=== PATIENT | female | born 1965 | race Caucasian/White ===

== ENCOUNTER → 2016-12-05 | Outpatient (CLI) | payer OTHER ==
[~2016-12-05] MED LIST: /ATOR40TA PO; AMBI5TAB PO; AMIT8CAP4 PO; ATIV1TAB10 PO; BACL10TA2 PO; BENT10CA PO; DICL100T PO; FLUO20CA8 PO; GABA-283 PO; GABA300C2 PO; GABA300C3 PO; GABA600T PO; LACT20EL PO; LINZ145C PO; LIPI20TA PO; LISI5TAB PO; METH75TA PO; MORP15TA2 PO; NEXI40CA PO; OMEP20CA3 PO; OMEP40CA2 PO; OXYC-517 PO; OXYC15TA76 PO; PERC5TAB PO; PHEN25IN3 PO; REGL10TA6 PO; REST15CA PO; TIZA4CAP3 PO; TRAM37.5 PO; TRAZ50TA2 PO; VALI5TAB PO; VICO5TAB16 PO
--- NOTE | 2016-12-13 00:02 | ECWPNPC ---
PATIENT NAME: JOI MCCLAIN : 1965 GENDER: FEMALE VISIT DATE: 12/05/2016 DISCHARGE DATE: 12/05/16 1626 VISIT LOCKED DATE TIME: PHYSICIAN: VALENTINA MERINO RESOURCE: VALENTINA MERINO REASON FOR APPOINTMENT 1. BACK HISTORY OF PRESENT ILLNESS HISTORY OF PRESENT ILLNESS: PAIN THE PATIENT DESCRIBES THE PAIN... FALL RISK SCREENING: SCREENING :NO FALLS IN THE PAST YEAR TODAY'S VISIT: NOTES: CONTINUES TO HAVE SIGNIFICANT LOW BACK PAIN WITH PAIN RADIATION TO BOTH LEGS, R>L. HAS NUMBNESS AND TINGLING IN LEGS AND FEET. DENIES LOSS OF BOWEL OR BLADDER CONTROL . HAS SIGNIFICANT DIFFICULTY WITH STANDING AND WALKING. RATES PAIN TODAY A 7/10. DESCRIBES PAIN CONSTANT ACHING BURNING SHARP STABBING SHOOTING TENDER THROBBING AND SORE.. CURRENT MEDICATIONS TAKING BACLOFEN 20 MG TABLET 1 TABLET ORALLY 1/2 TAB AM AND PM AND WHOLE TAB AT BEDTIME, NOTES: 09/16 8PM TAKING PROMETHAZINE HCL 50 MG TABLET DIRECTED ORALLY EVERY 6 HOURS PRN, NOTES: 09/15 12NOON TAKING LINZESS 145MCG CAPSULE 1 CAPSULE ORALLY ONCE A DAY NEEDED, NOTES: MONTHS AGO TAKING GABAPENTIN 300 MG CAPSULE 1 ORALLY QID, NOTES: 09/16 8PM TAKING IMITREX 50 MG TABLET 1 TABLET NEEDED ONE TIME, MAY REPEAT IN 2 HOURS IF HEADACHE STILL PRESENT, MDD 2 ORALLY DIRECTED, NOTES: MONTH AGO TAKING BUSPIRONE HCL 7.5 MG TABLET 1 TABLET ORALLY TWICE A DAY TAKING ZOFRAN 4 MG TABLET 2 TABLETS ORALLY BID PRN, NOTES: 2 WEEKS AGO TAKING LIPITOR 40 MG TABLET 1 TABLET ORALLY ONCE A DAY TAKING OMEPRAZOLE 40MG 40 MG CAPSULE 1 CAP(S) ORAL ONCE DAILY TAKING HYDROCHLOROTHIAZIDE 12.5 MG TABLET 1 TABLET ORALLY ONCE A DAY TAKING CYMBALTA 60 MG CAPSULE DELAYED RELEASE PARTICLES 1 CAPSULE ORALLY ONCE A DAY TAKING ATIVAN 0.5 MG TABLET 1 TAB ORALLY HS PRN...MAY REPEAT X 2 ( MDD=2) TAKING MORPHINE SULFATE 15 MG TABLET 1 TABLET ORALLY EVERY 6 HRS PRN PAIN MDD=4 NOT-TAKING WELLBUTRIN SR 150 MG TABLET EXTENDED RELEASE 12 HOUR 1 TABLET ORALLY TWICE A DAY DISCONTINUED VALIUM 5 MG TABLET 2 TABLET ORALLY ON ARRIVAL TO CLINIC MDD=2, NOTES: 09/17 9:30AM DISCONTINUED IBUPROFEN 600 MG TABLET 1 TABLET ORALLY THREE TIMES A DAY DISCONTINUED CLINDAMYCIN HCL 300 MG CAPSULE 1 CAPSULE ORALLY EVERY 8 HRS MEDICATION LIST REVIEWED AND RECONCILED WITH THE PATIENT PAST MEDICAL HISTORY DEPRESSION HYPERTENSION HYPERLIPIDEMIA INSOMNIA IBS REFLUX CHRONIC BACK PAIN ALLERGIES PENICILLIN (FOR ALLERGIES USE ONLY): HIVES: ALLERGY ANCEF: HIVES: ALLERGY SOCIAL HISTORY GENERAL: TOBACCO USE ARE YOU A:NONSMOKER LEARNING BARRIERS / SPECIAL NEEDS ORIENTED TO PLAN OF CARE: PATIENT, PAIN MANAGEMENT PATIENT, ORIENTED TO PLAN OF CARE: PATIENT, PAIN MANAGEMENT PATIENT. NEW PATIENT PAIN DIARY TODAY'S VISITNOTES FROM 0-10, WHAT LEVEL IS YOUR PAIN TODAY?0 PAIN CLINIC PFS, CLERGY, PUBLIC HEALTH REFERRALS PFS REFERRAL NEEDED?NO CLERGY REFERRAL NEEDED?NO PUBLIC HEALTH REFERRAL NEEDED?NO WAS THE PROVIDER NOTIFIED OF ANY PERTINENT INFO?NO PFS REFERRAL NEEDED?NO CLERGY REFERRAL NEEDED?NO PUBLIC HEALTH REFERRAL NEEDED?NO WAS THE PROVIDER NOTIFIED OF ANY PERTINENT INFO?NO REVIEW OF SYSTEMS CONSTITUTIONAL: ANY CHANGE IN YOUR MEDICAL CONDITION? NO . CHILLS NO . FEVER NO . INFECTION: DO YOU HAVE NEW INFECTIONS? NO . DO YOU HAVE HISTORY OF MRSA? NO . MUSCULOSKELETAL: ANY NEW PATTERNS OF PAIN OR NUMBNESS? NO . GASTROENTEROLOGY: ANY NEW CHANGE IN BOWEL CONTROL? NO . GENITOURINARY: ANY NEW CHANGE IN BLADDER CONTROL? NO . IS THERE A CHANCE YOU COULD BE ? NO . HEMATOLOGY/LYMPH: DO YOU TAKE ANY BLOOD THINNERS? (FOR EXAMPLE- COUMADIN, PLAVIX, AGGRENOX, PLATEL, PRADAXA, OR XARELTO) NO . WHEN WAS YOUR LAST DOSE? DATE: TIME: . NEUROLOGY: HAVE YOU FALLEN IN THE PAST 6 MONTHS? NO . ANY NEW EXTREMITY NUMBNESS OR WEAKNESS? NO . CARDIOLOGY: DO YOU HAVE A PACEMAKER OR DEFIBRILLATOR? NO . RESPIRATORY: HAVE YOU BEEN SICK IN THE PAST WEEK? NO . FEVER NO . FLU LIKE SYMPTOMS? NO . COUGH NO . INTEGUMENTARY: DO YOU HAVE ANY RASHES OR OPEN SORES? NO . ALLERGIC/IMMUNO: ARE YOU ALLERGIC TO SHELLFISH OR IV DYE? NO . ANY NEW ALLERGIES? NO . PSYCHIATRIC: DO YOU HAVE THOUGHTS OF HURTING YOURSELF OR SOMEONE ELSE? NO . ARE YOU ABUSED, NEGLECTED, OR IN AN UNSAFE ENVIRONMENT? NO . ENDOCRINOLOGY: ARE YOU DIABETIC? NO . OTHER: DO YOU NEED ANY PRESCRIPTIONS? YES BACLOFEN . IF YES, PLEASE LIST: ____ . ANY NEW PROBLEMS WITH YOUR MEDICATIONS? NO . WHEN DID YOU LAST EAT? ____ . WHEN DID YOU LAST DRINK? ____ . WHAT DID YOU LAST DRINK? ____ . NAME OF PERSON DRIVING YOU HOME? ____ . DO YOU HAVE ANY OTHER QUESTIONS OR CONCERNS NO . REVIEWED BY: PROVIDER: VALENTINA JEREZ . VITAL SIGNS WT 170 LBS, HT 63 IN, BMI 30.11 INDEX, BP 145/80 MM HG, HR 102 /MIN, RR 16 /MIN, TEMP 97.2 F, OXYGEN SAT % 96%, REVIEWED BY: MLF. EXAMINATION GENERAL EXAMINATION: GENERAL APPEARANCE:COLOR PALE. PSYCHALERT , ORIENTED X 3 , APPROPRIATE MOOD AND AFFECT . LUNGS:BILATERAL WHEEZES, NO RALES. HEART:HEART RATE REGULAR. MUSCULOSKELETAL:POINT TENDERNESS OVER LUMBAR SPINOUS PROCESSES AND ACROSS THE LUMBOSACRAL AXIS. SPACIFIC TENDERNESS ELICITED WITH PALPATION OVER THE BILATERAL SACROILIAC JOINTS. SLOW TO RISE TO STANDING POSITION. GAIT ANTALGIC. DECREASED MUSCLE STRENGTH WITH QUADRICEPS FLEXION.. ASSESSMENTS LUMBAR POST-LAMINECTOMY SYNDROME - M96.1 (PRIMARY) LUMBAR RADICULAR PAIN - M54.16 CHRONIC PRESCRIPTION OPIATE USE - Z79.891 TREATMENT LUMBAR POST-LAMINECTOMY SYNDROME REFILL BACLOFEN TABLET, 20 MG, 1 TABLET, ORALLY, 1/2 TAB AM AND PM AND WHOLE TAB AT BEDTIME, 30 DAY(S), 60, REFILLS 5 CAUDAL/LUMBAR EPIDURAL NOTES: UTOX TODAY CONSIDER EVENING PRIMROSE OIL OR BLACK COHOSH FOR HOT FLASHES,LUMBAR EPIDURAL INJECTION: YOUR PROCEDURE MATERIAL WAS PRINTED,WHAT IS LUMBAR EPIDURAL INJECTION? MATERIAL WAS PRINTED. CLINICAL NOTES: ISTOP REGISTRY REVIEWED AND DEMNOSTRATES COMPLLIANCE. BRINGS IN MEDICATIONS WHICH IS APPROPRIATE FOR WHAT WAS DISPENSED. RECENT URINE TOXICOLOGY REVIEWED. NO UNAUTHORIZED MEDICATIONS. NO ILLICIT SUBSTANCES AND PRESCRIBED MEDICATIONS WERE PRESENT. PROCEDURE CODES FA211 ESTABILISHED PATIENT [facility] F[facility] CHARGE DISPOSITION & COMMUNICATION FOLLOW UP AFTER INJECTION (REASON: CHECK AUTH FOR LESB) ELECTRONICALLY SIGNED BY MICHELLE GONZALEZ ON 12/12/2016 AT 11:03 AM EST DISCLAIMER : THIS IS A VISIT SUMMARY EXTRACTED FROM THE [employer] CHART. IT IS NOT A COPY OF THE [employer] PROGRESS NOTE. LAURA
== END ==
LOC: M PAIN 15:00
PROVIDERS: ATTEND Nurse Practitioner Family
DX: Z09 Encounter for follow-up examination after completed treatment for conditions other than malignant neoplasm (principal); G89.29 Other chronic pain; M96.1 Postlaminectomy syndrome, not elsewhere classified; M54.16 Radiculopathy, lumbar region; M79.1 Myalgia; M46.1 Sacroiliitis, not elsewhere classified; I10 Essential (primary) hypertension; E78.5 Hyperlipidemia, unspecified; K21.0 Gastro-esophageal reflux disease with esophagitis; K58.9 Irritable bowel syndrome, unspecified; F32.9 Major depressive disorder, single episode, unspecified; F41.9 Anxiety disorder, unspecified; G47.30 Sleep apnea, unspecified; F17.200 Nicotine dependence, unspecified, uncomplicated; Z88.0 Allergy status to penicillin; Z88.1 Allergy status to other antibiotic agents; Z79.891 Long term (current) use of opiate analgesic; Z79.899 Other long term (current) drug therapy

== ENCOUNTER → 2016-12-12 | Outpatient (REF) | payer OTHER ==
[2016-12-12 17:49] LABS: ALBUMIN 3.6 GM/DL (3.2-5.2); ALBUMIN/GLOBULIN RATIO 0.97 (1.00-1.93); ALKALINE PHOSPHATASE 85 U/L (45-117); ALT/SGPT 13 U/L (12-78); ANION GAP 9 MEQ/L (8-16); AST/SGOT 14 U/L (15-37); BILIRUBIN,TOTAL 0.3 MG/DL (0.2-1.0); BLOOD UREA NITROGEN 8 MG/DL (7-18); CALCIUM LEVEL 9.1 MG/DL (8.5-10.1); CARBON DIOXIDE LEVEL 30 MEQ/L (21-32); CHLORIDE LEVEL 101 MEQ/L (98-107); CHOLESTEROL LEVEL 252 MG/DL (<200); GLOMERULAR FILTRATION RATE > 60.0 (>51); GLUCOSE, FASTING 100 MG/DL (70-105); POTASSIUM SERUM 3.5 MEQ/L (3.5-5.1); SODIUM LEVEL 140 MEQ/L (136-145); TOTAL PROTEIN 7.3 GM/DL (6.4-8.2); TRIGLYCERIDES LEVEL 251 MG/DL (<150)
== END ==
LOC: M SFHCCAPE 09:52
PROVIDERS: ATTEND Physician Assistant
DX: E78.5 Hyperlipidemia, unspecified (principal)

== ENCOUNTER → 2017-01-16 | Outpatient (CLI) | payer OTHER ==
[~2017-01-16] MED LIST changes: +GABA-282 PO; -GABA300C3 PO; +ISOVUE-M 300 61% 15ML VIAL (Q9967) As Ordered ONE; +LIDOCAINE 1% SDV INJ 30 ML VIAL As Ordered ONE; +diazePAM 5 MG TAB As Ordered ONE; +methylPREDNISolone SUSP 40 MG/ML (DEPO-medrol) VIAL (J1030) As Ordered ONE
--- NOTE | 2017-01-16 14:51 | REP ---
FLUOROSCOPIC GUIDANCE FOR LUMBAR EPIDURAL INJECTION: 01/16/2017 CLINICAL HISTORY: Low back pain. FINDINGS: Two images from C-arm fluoroscopy provided to Dr. Mcgee of the pain clinic for lumbar epidural steroid injection. Initial image shows a needle to the right of midline at the L5-S1 level with some epidural contrast adjacent. Second image shows the needle removed. Fluoroscopy time: 9 seconds. Signed by Beau Carranza MD 01/16/2017 05:52 P
--- NOTE | 2017-01-26 23:50 | ECWPNPC ---
PATIENT NAME: JOI MCCLAIN : 1965 GENDER: FEMALE VISIT DATE: 01/16/2017 DISCHARGE DATE: 01/16/17 1034 VISIT LOCKED DATE TIME: PHYSICIAN: STELLA ASHRAF RESOURCE: STELLA ASHRAF REASON FOR APPOINTMENT 1. LESB HISTORY OF PRESENT ILLNESS HISTORY OF PRESENT ILLNESS: PAIN THE PATIENT DESCRIBES THE PAIN... FALL RISK SCREENING: SCREENING :NO FALLS IN THE PAST YEAR CURRENT MEDICATIONS TAKING PROMETHAZINE HCL 50 MG TABLET DIRECTED ORALLY EVERY 6 HOURS PRN, NOTES: 2 WEEKS AGO TAKING LINZESS 145MCG CAPSULE 1 CAPSULE ORALLY ONCE A DAY NEEDED, NOTES: LAST WEEK TAKING GABAPENTIN 300 MG CAPSULE 1 ORALLY QID, NOTES: 01/15 9PM TAKING IMITREX 50 MG TABLET 1 TABLET NEEDED ONE TIME, MAY REPEAT IN 2 HOURS IF HEADACHE STILL PRESENT, MDD 2 ORALLY DIRECTED, NOTES: 2 MONTHS AGO TAKING OMEPRAZOLE 40MG 40 MG CAPSULE 1 CAP(S) ORAL ONCE DAILY, NOTES: 01/15 9PM TAKING BACLOFEN 20 MG TABLET 1 TABLET ORALLY 1/2 TAB AM AND PM AND WHOLE TAB AT BEDTIME, NOTES: 01/15 9PM TAKING CYMBALTA 60 MG CAPSULE DELAYED RELEASE PARTICLES 1 CAPSULE ORALLY ONCE A DAY, NOTES: 01/15 9PM TAKING ATORVASTATIN CALCIUM 10 MG TABLET 1 TABLET ORALLY ONCE A DAY, NOTES: 01/15 9PM TAKING MORPHINE SULFATE 15 MG TABLET 1 TABLET ORALLY EVERY 6 HRS PRN PAIN MDD=4, NOTES: 01/16 0945 TAKING ZOFRAN 4 MG TABLET 2 TABLETS ORALLY BID PRN, NOTES: 2 WEEKS AGO TAKING BUSPIRONE HCL 7.5 MG TABLET 1 TABLET ORALLY THREE TIMES A DAY, NOTES: 1 WEEK AGO TAKING HYDROCHLOROTHIAZIDE 12.5 MG TABLET 1 TABLET ORALLY ONCE A DAY, NOTES: 1 WEEK TAKING ATIVAN 0.5 MG TABLET 1 TAB ORALLY HS PRN, MAY REPEAT X 1 ( MDD=2), NOTES: 1 WEEK NOT-TAKING LIPITOR 40 MG TABLET 1 TABLET ORALLY ONCE A DAY NOT-TAKING WELLBUTRIN SR 150 MG TABLET EXTENDED RELEASE 12 HOUR 1 TABLET ORALLY TWICE A DAY MEDICATION LIST REVIEWED AND RECONCILED WITH THE PATIENT PAST MEDICAL HISTORY DEPRESSION HYPERTENSION HYPERLIPIDEMIA INSOMNIA IBS REFLUX CHRONIC BACK PAIN ALLERGIES PENICILLIN (FOR ALLERGIES USE ONLY): HIVES: ALLERGY ANCEF: HIVES: ALLERGY REVIEW OF SYSTEMS CONSTITUTIONAL: ANY CHANGE IN YOUR MEDICAL CONDITION? NO . CHILLS NO . FEVER NO . INFECTION: DO YOU HAVE NEW INFECTIONS? NO . DO YOU HAVE HISTORY OF MRSA? NO . MUSCULOSKELETAL: ANY NEW PATTERNS OF PAIN OR NUMBNESS? NO . GASTROENTEROLOGY: ANY NEW CHANGE IN BOWEL CONTROL? NO . GENITOURINARY: ANY NEW CHANGE IN BLADDER CONTROL? NO . IS THERE A CHANCE YOU COULD BE ? NO . HEMATOLOGY/LYMPH: DO YOU TAKE ANY BLOOD THINNERS? (FOR EXAMPLE- COUMADIN, PLAVIX, AGGRENOX, PLATEL, PRADAXA, OR XARELTO) NO . WHEN WAS YOUR LAST DOSE? DATE: TIME: . NEUROLOGY: HAVE YOU FALLEN IN THE PAST 6 MONTHS? NO . ANY NEW EXTREMITY NUMBNESS OR WEAKNESS? NO . CARDIOLOGY: DO YOU HAVE A PACEMAKER OR DEFIBRILLATOR? NO . RESPIRATORY: HAVE YOU BEEN SICK IN THE PAST WEEK? NO . FEVER NO . FLU LIKE SYMPTOMS? NO . COUGH NO . INTEGUMENTARY: DO YOU HAVE ANY RASHES OR OPEN SORES? NO . ALLERGIC/IMMUNO: ARE YOU ALLERGIC TO SHELLFISH OR IV DYE? NO . ANY NEW ALLERGIES? NO . PSYCHIATRIC: DO YOU HAVE THOUGHTS OF HURTING YOURSELF OR SOMEONE ELSE? NO . ARE YOU ABUSED, NEGLECTED, OR IN AN UNSAFE ENVIRONMENT? NO . ENDOCRINOLOGY: ARE YOU DIABETIC? NO . OTHER: DO YOU NEED ANY PRESCRIPTIONS? NO . IF YES, PLEASE LIST: ____ . ANY NEW PROBLEMS WITH YOUR MEDICATIONS? NO . WHEN DID YOU LAST EAT? 01/15 NIGHT . WHEN DID YOU LAST DRINK? 01/16 7AM . WHAT DID YOU LAST DRINK? DIET PEPSI . NAME OF PERSON DRIVING YOU HOME? SAMIA MCCLAIN . DO YOU HAVE ANY OTHER QUESTIONS OR CONCERNS PT IS A CURRENT SMOKER, REFUSING ANY SMOKING CESSATION AT THIS TIME. . REVIEWED BY: PROVIDER: . VITAL SIGNS WT 187.8 LBS, HT 63 IN, BMI 33.26 INDEX, BP 141/76 MM HG, HR 92 /MIN, RR 16 /MIN, TEMP 97.4 F, OXYGEN SAT % 96%, SAFE IN ENV? (Y/N) Y, NA INITIALS TL 0910, REVIEWED BY: CHARISSE. ASSESSMENTS INTERVERTEBRAL DISC DISORDERS WITH RADICULOPATHY, LUMBOSACRAL REGION - M51.17 (PRIMARY) PROCEDURES PRE PROCEDURE DIAGNOSIS LUMBOSACRAL DISC DISORDER WITH RADICULOPATHY, LUMBOSACRAL RADICULOPATHY, LUMBAR POST LAMINECTOMY PAIN SYNDROME POST PROCEDURE DIAGNOSIS LUMBOSACRAL DISC DISORDER WITH RADICULOPATHY, LUMBOSACRAL RADICULOPATHY, LUMBAR POST LAMINECTOMY PAIN SYNDROME PROCEDURE L5-S1 EPIDURAL STEROID INJECTION UNDER FLUOROSCOPIC GUIDANCE SURGEON DR. STELLA ASHRAF PUBLIC HEALTH REGISTRAR NONE ANESTHESIA LOCAL PRE PROCEDURE NOTE THE PATIENT HAS A HISTORY OF CHRONIC LOW BACK PAIN. I EVALUATE THE PATIENT AND REVIEWED THE CHART. I WENT OVER THE RISKS, ALTERNATIVES, AND BENEFITS ASSOCIATED WITH THIS PROCEDURE. THE PATIENT WOULD LIKE TO PROCEED AND GIVE CONSENT TO PERFORMED THE PROCEDURE. THE PATIENT DENIES UNEXPLAINABLE WEIGHT LOSS, FEVER, CHILLS, OR NEW CHANGES IN URINARY OR BOWEL CONTROL. DESCRIPTION OF PROCEDURE THE PATIENT WAS BROUGHT TO THE PROCEDURE ROOM AND PLACED IN THE PRONE POSITION. THE LUMBOSACRAL AREA WAS CLEANED WITH BETADINE SOLUTION AND DRAPED ASEPTICALLY. THE PROCEDURE WAS DONE UNDER STERILE CONDITIONS. I CHECKED LATERALITY AND THE LEVEL WHERE THE PROCEDURE WAS GOING TO BE PERFORMED WITH THE PATIENT AND THE SUPPORTING STAFF AT THE MOMENT OF THE TIME OUT IN THE PROCEDURE ROOM. UNDER FLUOROSCOPIC GUIDANCE, THE TARGET POINT WAS SELECTED AT THE INTERLAMINAR LEVEL OF L5-S1. LIDOCAINE WAS USED TO NUMB THE SKIN AND THE SUBCUTANEOUS TISSUE BELOW IT. EPIDURAL TUOHY NEEDLE, 17-GAUGE, WAS ADVANCED UNDER FLUOROSCOPIC GUIDANCE AND FOLLOWING PATIENT FEEDBACK UNTIL THE EPIDURAL SPACE WAS REACHED, 7 CM DEEP INTO THE SKIN BY THE LOSS OF RESISTANCE TECHNIQUE. ISOVUE M DYE 30%, 0.25 ML, WAS INJECTED SHOWING ADEQUATE SPREAD OF THE DYE. THEN, A SOLUTION OF 3 ML OF NORMAL SALINE WITH DEPO-MEDROL 60 MG WAS INJECTED SLOWLY FOLLOWING PATIENT FEEDBACK. THERE WAS NO EVIDENCE OF BLOOD, PARESTHESIA OR CEREBROSPINAL FLUID DURING THE PROCEDURE. THE PATIENT WAS SENT TO THE RECOVERY ROOM. THE PATIENT WAS MOVING THE EXTREMITIES AND DOING WELL. THERE WAS NO COMPLICATION DURING THE PROCEDURE. FLUOROSCOPY TIME WAS 9 SECONDS. POST PROCEDURE NOTE THE PATIENT WILL BE SEEN IN A FOLLOW UP IN THE NEXT FEW WEEKS. INSTRUCTIONS WERE GIVEN, QUESTIONS WERE ANSWERED, AND THE PATIENT EXPRESSED UNDERSTANDING AND AGREES WITH THE PLAN. I, ATUL SIMMS, DOCUMENTED THE ABOVE INFORMATION ACTING A SCRIBE FOR DR. ASHRAF. I HAVE REVIEWED THE ABOVE DOCUMENT, WRITTEN BY ATUL PRICEIBJoanna AND I VERIFY THAT IT IS [facility] FLUORO GUIDE SPINE INJECTION (PAIN)[id number] PROCEDURE CODES 52332 LUMBAR/SACRAL W/ IMAGING 6045F RADXPS IN END TWIG0LIPIO PXD DISPOSITION & COMMUNICATION FOLLOW UP 3 WEEKS ELECTRONICALLY SIGNED BY STELLA ASHRAF MD ON 01/26/2017 AT 09:01 PM EDT DISCLAIMER : THIS IS A VISIT SUMMARY EXTRACTED FROM THE [employer] CHART. IT IS NOT A COPY OF THE [employer] PROGRESS NOTE. MTDD
== END ==
LOC: M PAIN 09:00
PROVIDERS: ATTEND Anesthesiology
DX: G89.29 Other chronic pain (principal); M51.17 Intervertebral disc disorders with radiculopathy, lumbosacral region; F32.9 Major depressive disorder, single episode, unspecified; I10 Essential (primary) hypertension; E78.5 Hyperlipidemia, unspecified; G47.00 Insomnia, unspecified; K21.9 Gastro-esophageal reflux disease without esophagitis; Z88.0 Allergy status to penicillin; Z88.8 Allergy status to other drugs, medicaments and biological substances; Z79.891 Long term (current) use of opiate analgesic; Z79.899 Other long term (current) drug therapy
CPT/HCPCS: 62323; J1030; Q9967

== ENCOUNTER → 2017-03-26 | Outpatient (CLI) | payer OTHER ==
[~2017-03-26] MED LIST changes: -ISOVUE-M 300 61% 15ML VIAL (Q9967) As Ordered ONE; -LIDOCAINE 1% SDV INJ 30 ML VIAL As Ordered ONE; -diazePAM 5 MG TAB As Ordered ONE; -methylPREDNISolone SUSP 40 MG/ML (DEPO-medrol) VIAL (J1030) As Ordered ONE
--- NOTE | 2017-04-11 00:37 | ECWPNPC ---
PATIENT NAME: JOI MCCLAIN : 1965 GENDER: FEMALE VISIT DATE: 03/26/2017 DISCHARGE DATE: 03/26/17 1619 VISIT LOCKED DATE TIME: PHYSICIAN: VALENTINA MERINO RESOURCE: VALENTINA MERINO REASON FOR APPOINTMENT 1. BACK HISTORY OF PRESENT ILLNESS HISTORY OF PRESENT ILLNESS: PAIN THE PATIENT DESCRIBES THE PAIN... FALL RISK SCREENING: SCREENING :ONE FALL WITH INJURY IN THE PAST YEAR TODAY'S VISIT: NOTES: S/P LESB COMPLETED ON 01/16/17. REPORTS PAIN LEVEL IMPROVED AFTER INJECTION BY AT LEAST 50%. WAS ABLE TO DECREASE HER PAINMEDS. WAS ABLE TO DO HOUSEWORK WITH OUT CRYING. RATES PAIN TODAY 9/10. DESCRIBES PAIN CONSTANT, ACHING, BURNING, SHARP AND STABBING AND SHOOTING. . CURRENT MEDICATIONS TAKING PROMETHAZINE HCL 50 MG TABLET DIRECTED ORALLY EVERY 6 HOURS PRN, NOTES: 2 WEEKS AGO TAKING LINZESS 145MCG CAPSULE 1 CAPSULE ORALLY ONCE A DAY NEEDED, NOTES: LAST WEEK TAKING IMITREX 50 MG TABLET 1 TABLET NEEDED ONE TIME, MAY REPEAT IN 2 HOURS IF HEADACHE STILL PRESENT, MDD 2 ORALLY DIRECTED, NOTES: 2 MONTHS AGO TAKING OMEPRAZOLE 40MG 40 MG CAPSULE 1 CAP(S) ORAL ONCE DAILY, NOTES: 01/15 9PM TAKING BACLOFEN 20 MG TABLET 1 TABLET ORALLY 1/2 TAB AM AND PM AND WHOLE TAB AT BEDTIME, NOTES: 01/15 9PM TAKING ATORVASTATIN CALCIUM 10 MG TABLET 1 TABLET ORALLY ONCE A DAY, NOTES: 01/15 9PM TAKING ZOFRAN 4 MG TABLET 2 TABLETS ORALLY BID PRN, NOTES: 2 WEEKS AGO TAKING GABAPENTIN 300 MG CAPSULE 1 ORALLY QID TAKING CYMBALTA 60 MG CAPSULE DELAYED RELEASE PARTICLES 1 CAPSULE ORALLY ONCE A DAY, NOTES: 01/15 9PM TAKING BUSPIRONE HCL 7.5 MG TABLET 1 TABLET ORALLY THREE TIMES A DAY, NOTES: 1 WEEK AGO TAKING HYDROCHLOROTHIAZIDE 12.5 MG TABLET 1 TABLET ORALLY ONCE A DAY, NOTES: 1 WEEK TAKING ATIVAN 0.5 MG TABLET 1 TAB ORALLY HS PRN, MAY REPEAT X 1 ( MDD=2), NOTES: 1 WEEK TAKING MORPHINE SULFATE 15 MG TABLET 1 TABLET ORALLY EVERY 6 HRS PRN PAIN MDD=4 NOT-TAKING LIPITOR 40 MG TABLET 1 TABLET ORALLY ONCE A DAY NOT-TAKING WELLBUTRIN SR 150 MG TABLET EXTENDED RELEASE 12 HOUR 1 TABLET ORALLY TWICE A DAY MEDICATION LIST REVIEWED AND RECONCILED WITH THE PATIENT PAST MEDICAL HISTORY DEPRESSION HYPERTENSION HYPERLIPIDEMIA INSOMNIA IBS REFLUX CHRONIC BACK PAIN ALLERGIES PENICILLIN (FOR ALLERGIES USE ONLY): HIVES: ALLERGY ANCEF: HIVES: ALLERGY SOCIAL HISTORY GENERAL: TOBACCO USE ARE YOU A:CURRENT SMOKER HOW MANY CIGARETTES A DAY DO YOU SMOKE?6-10 HOW SOON AFTER YOU WAKE UP DO YOU SMOKE YOUR FIRST CIGARETTE?6-30 MIN HOW OFTEN DO YOU SMOKE CIGARETTES?EVERY DAY PATIENT COUNSELED ON THE DANGERS OF TOBACCO USE AND URGED TO QUIT:03/26/2017 ARE YOU INTERESTED IN QUITTING?NOT READY TO QUIT COUNSELED THE PATIENT ON SMOKING EFFECTS, EDUCATION [id number] ADDITIONAL FINDINGS: TOBACCO USER NONE VAPORNO E-CIGARETTENO BMI CARE GOAL FOLLOW-UP ABOVE NORMAL BMI FOLLOW-UPDIETARY MANAGEMENT EDUCATION, GUIDANCE, AND COUNSELING ALCOHOL SCREENING DID YOU HAVE A DRINK CONTAINING ALCOHOL IN THE PAST YEAR?NO POINTS0 INTERPRETATIONNEGATIVE RECREATIONAL DRUG USE DRUG USE?NO HIV / HEP-C SCREENING HIV TEST OFFERED TO PATIENT:YES DATE OFFERED:12/19/2016 CONSENT ON FILE TEST ACCEPTED:NO REASON:PATIENT DECLINED HEP-C TEST OFFERED TO PATIENT:YES DATE OFFERED:12/19/2016 CONSENT ON FILE TEST ACCEPTED:NO REASON:PATIENT DECLINED DIET: REGULAR. MARITAL STATUS: . LANGUAGE SCOTTISH. 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 SHE SLEEPS OKAY ONLY. SHE FRACTURED RIGHT ELBOW, RIGHT CHEEK FRACTURE, AND LEFT WRIST IN PAST. NO HISTORY OF AN EATING DISORDER. SHE DENIES HISTORY OF PHYSICAL/SEXUAL ABUSE. SHE WEARS SEAT BELTS. SHE IS CURRENT WITH IMMUNIZATIONS AND TETANUS. SHE IS UP TO DATE WITH DENTAL AND EYE EXAMINATIONS. SHE TAKES NO VITAMINS OR CALCIUM. REVIEW OF SYSTEMS REVIEWED BY: PROVIDER: VALENTINA WALKER CASING MACHINE OPERATOR . CONSTITUTIONAL: ANY CHANGE IN YOUR MEDICAL CONDITION? NO . CHILLS NO . FEVER NO . INFECTION: DO YOU HAVE NEW INFECTIONS? NO . DO YOU HAVE HISTORY OF MRSA? NO . MUSCULOSKELETAL: ANY NEW PATTERNS OF PAIN OR NUMBNESS? YES . GASTROENTEROLOGY: ANY NEW CHANGE IN BOWEL CONTROL? NO . ACID REFLUX YES - SOME IMPROVEMENT WITH CURRENT MEDS . GENITOURINARY: ANY NEW CHANGE IN BLADDER CONTROL? NO . IS THERE A CHANCE YOU COULD BE ? NO . HEMATOLOGY/LYMPH: DO YOU TAKE ANY BLOOD THINNERS? (FOR EXAMPLE- COUMADIN, PLAVIX, AGGRENOX, PLATEL, PRADAXA, OR XARELTO) NO . WHEN WAS YOUR LAST DOSE? DATE: TIME: . NEUROLOGY: HAVE YOU FALLEN IN THE PAST 6 MONTHS? YES . ANY NEW EXTREMITY NUMBNESS OR WEAKNESS? NO . CARDIOLOGY: DO YOU HAVE A PACEMAKER OR DEFIBRILLATOR? NO . CHEST PAIN PATIENT DENIES . RESPIRATORY: HAVE YOU BEEN SICK IN THE PAST WEEK? NO . FEVER NO . FLU LIKE SYMPTOMS? NO . COUGH NO . INTEGUMENTARY: DO YOU HAVE ANY RASHES OR OPEN SORES? NO . ALLERGIC/IMMUNO: ARE YOU ALLERGIC TO SHELLFISH OR IV DYE? NO . ANY NEW ALLERGIES? NO . PSYCHIATRIC: DO YOU HAVE THOUGHTS OF HURTING YOURSELF OR SOMEONE ELSE? NO . ARE YOU ABUSED, NEGLECTED, OR IN AN UNSAFE ENVIRONMENT? NO . ENDOCRINOLOGY: ARE YOU DIABETIC? NO . OTHER: DO YOU NEED ANY PRESCRIPTIONS? NO . IF YES, PLEASE LIST: ____ . ANY NEW PROBLEMS WITH YOUR MEDICATIONS? NO . WHEN DID YOU LAST EAT? ____ . WHEN DID YOU LAST DRINK? ____ . WHAT DID YOU LAST DRINK? ____ . NAME OF PERSON DRIVING YOU HOME? ____ . DO YOU HAVE ANY OTHER QUESTIONS OR CONCERNS NO . PSYCHOLOGY: HIGH STRESS LEVEL AT HOME . VITAL SIGNS WT 165 LBS, HT 63 IN, BMI 29.23 INDEX, BP 128/72 MM HG, HR 99 /MIN, RR 16 /MIN, TEMP 97.3 F, OXYGEN SAT % 99%, NA INITIALS SC 15:13, REVIEWED BY: VD. EXAMINATION GENERAL EXAMINATION: GENERAL APPEARANCE:COLOR PALE. PSYCHALERT , ORIENTED X 3 , APPROPRIATE MOOD AND AFFECT . LUNGS:CLEAR TO AUSCULTATION BILATERALLY. HEART:HEART RATE REGULAR. MUSCULOSKELETAL:POINT TENDERNESS OVER LUMBAR SPINOUS PROCESSES AND ACROSS THE LUMBOSACRAL AXIS. SPACIFIC TENDERNESS ELICITED WITH PALPATION OVER THE RIGHT SACROILIAC JOINTS. SLOW TO RISE TO STANDING POSITION. GAIT ANTALGIC. DECREASED MUSCLE STRENGTH WITH QUADRICEPS FLEXION. POINT TENDERNESS OVER RIGHT TROCANTERIC [place] REGION. USING CRUTCH FOR SUPPORT AND BALANCE. ASSESSMENTS LUMBAR POST-LAMINECTOMY SYNDROME - M96.1 (PRIMARY) LUMBAR RADICULOPATHY - M54.16 CHRONIC PRESCRIPTION OPIATE USE - Z79.891 TREATMENT LUMBAR POST-LAMINECTOMY SYNDROME NOTES: REQUEST AUTH FOR CAUDAL EPIDUAL INJECTION - RIGHT LEG RADICULOPATHYUTOX TODAYTRY KNEESPLINT/BRACECONTINUE CURRENT MEDS. PREVENTIVE MEDICINE CAUDAL EPIDURAL INFORMATION REVIEWED WITH PT. PROCEDURE CODES FA211 ESTABILISHED PATIENT [facility] FACILITY CHARGE DISPOSITION & COMMUNICATION FOLLOW UP AFTER INJECTION (REASON: REQUEST AUTH FOR CAUDAL EPIDUAL INJECTION - RIGHT LEG RADICULOPATHY) ELECTRONICALLY SIGNED BY MICHELLE GONZALEZ ON 04/10/2017 AT 06:36 PM EDT DISCLAIMER : THIS IS A VISIT SUMMARY EXTRACTED FROM THE [employer] CHART. IT IS NOT A COPY OF THE [employer] PROGRESS NOTE. LAURA
== END ==
LOC: M PAIN 14:40
PROVIDERS: ATTEND Nurse Practitioner Family
DX: M96.1 Postlaminectomy syndrome, not elsewhere classified (principal); M54.16 Radiculopathy, lumbar region; F32.9 Major depressive disorder, single episode, unspecified; I10 Essential (primary) hypertension; E78.5 Hyperlipidemia, unspecified; G47.00 Insomnia, unspecified; K21.9 Gastro-esophageal reflux disease without esophagitis; F17.210 Nicotine dependence, cigarettes, uncomplicated; Z88.8 Allergy status to other drugs, medicaments and biological substances; Z79.891 Long term (current) use of opiate analgesic; Z79.899 Other long term (current) drug therapy

== ENCOUNTER → 2017-04-11 | Outpatient (CLI) | payer OTHER ==
[~2017-04-11] MED LIST changes: +ISOVUE-M 300 61% 15ML VIAL (Q9967) As Ordered ONE; +LIDOCAINE 1% SDV INJ 30 ML VIAL As Ordered ONE; +diazePAM 5 MG TAB As Ordered ONE; +methylPREDNISolone SUSP 40 MG/ML (DEPO-medrol) VIAL (J1030) As Ordered ONE; +oxyCODONE 5MG TAB As Ordered ONE
--- NOTE | 2017-04-11 15:54 | REP ---
FLUOROSCOPIC GUIDANCE FOR LUMBAR SPINE INJECTION: 04/11/2017. Clinical History: Low back pain. Findings: Three images from C-arm fluoroscopy provided to Dr. Mcgee of the pain clinic. The initial image shows a needle to the right of midline at the L5-S1 level. The second image shows epidural steroid and contrast mixture adjacent to that needle on the right side and the third image shows the needle removed. Fluoroscopy time: 14 seconds. Signed by Beau Carranza MD 04/11/2017 08:39 P
--- NOTE | 2017-04-22 23:27 | ECWPNPC ---
PATIENT NAME: JOI MCCLAIN : 1965 GENDER: FEMALE VISIT DATE: 04/11/2017 DISCHARGE DATE: 04/11/17 1149 VISIT LOCKED DATE TIME: PHYSICIAN: STELLA ASHRAF RESOURCE: STELLA ASHRAF REASON FOR APPOINTMENT 1. CAUDAL EPIDURA HISTORY OF PRESENT ILLNESS HISTORY OF PRESENT ILLNESS: PAIN THE PATIENT DESCRIBES THE PAIN... FALL RISK SCREENING: SCREENING :NO FALLS IN THE PAST YEAR CURRENT MEDICATIONS TAKING PROMETHAZINE HCL 50 MG TABLET DIRECTED ORALLY EVERY 6 HOURS PRN, NOTES: 2 WEEKS AGO TAKING LINZESS 145MCG CAPSULE 1 CAPSULE ORALLY ONCE A DAY NEEDED, NOTES: LAST WEEK TAKING IMITREX 50 MG TABLET 1 TABLET NEEDED ONE TIME, MAY REPEAT IN 2 HOURS IF HEADACHE STILL PRESENT, MDD 2 ORALLY DIRECTED, NOTES: LAST WEEK TAKING OMEPRAZOLE 40MG 40 MG CAPSULE 1 CAP(S) ORAL ONCE DAILY, NOTES: 04-10-172199 TAKING BACLOFEN 20 MG TABLET 1 TABLET ORALLY 1/2 TAB AM AND PM AND WHOLE TAB AT BEDTIME, NOTES: 04-11-17729 TAKING ATORVASTATIN CALCIUM 10 MG TABLET 1 TABLET ORALLY ONCE A DAY, NOTES: 04-10-172199 TAKING GABAPENTIN 300 MG CAPSULE 1 ORALLY QID, NOTES: 04-11-17729 TAKING CYMBALTA 60 MG CAPSULE DELAYED RELEASE PARTICLES 1 CAPSULE ORALLY ONCE A DAY, NOTES: 04-10-172199 TAKING BUSPIRONE HCL 7.5 MG TABLET 1 TABLET ORALLY THREE TIMES A DAY, NOTES: 04-10-172199 TAKING HYDROCHLOROTHIAZIDE 12.5 MG TABLET 1 TABLET ORALLY ONCE A DAY, NOTES: 04-10-172199 TAKING MORPHINE SULFATE 15 MG TABLET 1 TABLET ORALLY EVERY 6 HRS PRN PAIN MDD=4, NOTES: 04-10-172199 TAKING ZOFRAN 4 MG TABLET 2 TABLETS ORALLY BID PRN, NOTES: 2 WEEKS AGO TAKING ATIVAN 0.5 MG TABLET 1 TAB ORALLY HS PRN, MAY REPEAT X 1 ( MDD=2), NOTES: 04-10-172199 NOT-TAKING LIPITOR 40 MG TABLET 1 TABLET ORALLY ONCE A DAY NOT-TAKING WELLBUTRIN SR 150 MG TABLET EXTENDED RELEASE 12 HOUR 1 TABLET ORALLY TWICE A DAY MEDICATION LIST REVIEWED AND RECONCILED WITH THE PATIENT PAST MEDICAL HISTORY DEPRESSION HYPERTENSION HYPERLIPIDEMIA INSOMNIA IBS REFLUX CHRONIC BACK PAIN ALLERGIES PENICILLIN (FOR ALLERGIES USE ONLY): HIVES: ALLERGY ANCEF: HIVES: ALLERGY HOSPITALIZATION/MAJOR DIAGNOSTIC PROCEDURE FOR SURGERIES REVIEW OF SYSTEMS REVIEWED BY: PROVIDER: . CONSTITUTIONAL: ANY CHANGE IN YOUR MEDICAL CONDITION? NO . CHILLS NO . FEVER NO . INFECTION: DO YOU HAVE NEW INFECTIONS? NO . DO YOU HAVE HISTORY OF MRSA? NO . MUSCULOSKELETAL: ANY NEW PATTERNS OF PAIN OR NUMBNESS? NO . GASTROENTEROLOGY: ANY NEW CHANGE IN BOWEL CONTROL? NO . GENITOURINARY: ANY NEW CHANGE IN BLADDER CONTROL? NO . IS THERE A CHANCE YOU COULD BE ? NO . HEMATOLOGY/LYMPH: DO YOU TAKE ANY BLOOD THINNERS? (FOR EXAMPLE- COUMADIN, PLAVIX, AGGRENOX, PLATEL, PRADAXA, OR XARELTO) NO . WHEN WAS YOUR LAST DOSE? DATE: TIME: . NEUROLOGY: HAVE YOU FALLEN IN THE PAST 6 MONTHS? NO . ANY NEW EXTREMITY NUMBNESS OR WEAKNESS? NO . CARDIOLOGY: DO YOU HAVE A PACEMAKER OR DEFIBRILLATOR? NO . RESPIRATORY: HAVE YOU BEEN SICK IN THE PAST WEEK? NO . FEVER NO . FLU LIKE SYMPTOMS? NO . COUGH NO . INTEGUMENTARY: DO YOU HAVE ANY RASHES OR OPEN SORES? NO . ALLERGIC/IMMUNO: ARE YOU ALLERGIC TO SHELLFISH OR IV DYE? NO . ANY NEW ALLERGIES? NO . PSYCHIATRIC: DO YOU HAVE THOUGHTS OF HURTING YOURSELF OR SOMEONE ELSE? NO . ARE YOU ABUSED, NEGLECTED, OR IN AN UNSAFE ENVIRONMENT? NO . ENDOCRINOLOGY: ARE YOU DIABETIC? NO . OTHER: DO YOU NEED ANY PRESCRIPTIONS? NO . IF YES, PLEASE LIST: ____ . ANY NEW PROBLEMS WITH YOUR MEDICATIONS? NO . WHEN DID YOU LAST EAT? ____LAST NIGHT . WHEN DID YOU LAST DRINK? THIS MORNING WATER . WHAT DID YOU LAST DRINK? ____ . NAME OF PERSON DRIVING YOU HOME? ____SAMIA MCCLAIN . DO YOU HAVE ANY OTHER QUESTIONS OR CONCERNS NO . VITAL SIGNS WT 170.2 LBS, HT 63 IN, BMI 30.15 INDEX, BP 120/66 MM HG, HR 96 /MIN, RR 18 /MIN, TEMP 97 F, OXYGEN SAT % 98%, NA INITIALS LC 0845, REVIEWED BY: CM. ASSESSMENTS INTERVERTEBRAL DISC DISORDERS WITH RADICULOPATHY, LUMBOSACRAL REGION - M51.17 (PRIMARY) PROCEDURES PRE PROCEDURE DIAGNOSIS LUMBOSACRAL DISC DISORDER WITH RADICULOPATHY POST PROCEDURE DIAGNOSIS LUMBOSACRAL DISC DISORDER WITH RADICULOPATHY PROCEDURE LUMBAR EPIDURAL STEROID INJECTION UNDER FLUOROSCOPIC GUIDANCE SURGEON DR. STELLA ASHRAF COTTON TIER NONE ANESTHESIA LOCAL PRE PROCEDURE NOTE THE PATIENT HAS A HISTORY OF CHRONIC LOW BACK PAIN. I EVALUATE THE PATIENT AND REVIEWED THE CHART. I WENT OVER THE RISKS, ALTERNATIVES, AND BENEFITS ASSOCIATED WITH THIS PROCEDURE. THE PATIENT WOULD LIKE TO PROCEED AND GIVE CONSENT TO PERFORMED THE PROCEDURE. THE PATIENT DENIES UNEXPLAINABLE WEIGHT LOSS, FEVER, CHILLS, OR NEW CHANGES IN URINARY OR BOWEL CONTROL. DESCRIPTION OF PROCEDURE THE PATIENT WAS BROUGHT TO THE PROCEDURE ROOM AND PLACED IN THE PRONE POSITION. THE LUMBOSACRAL AREA WAS CLEANED WITH BETADINE SOLUTION AND DRAPED ASEPTICALLY. THE PROCEDURE WAS DONE UNDER STERILE CONDITIONS. I CHECKED LATERALITY AND THE LEVEL WHERE THE PROCEDURE WAS GOING TO BE PERFORMED WITH THE PATIENT AND THE SUPPORTING STAFF AT THE MOMENT OF THE TIME OUT IN THE PROCEDURE ROOM. UNDER FLUOROSCOPIC GUIDANCE, THE TARGET POINT WAS SELECTED AT THE INTERLAMINAR LEVEL OF L5-S1. LIDOCAINE WAS USED TO NUMB THE SKIN AND THE SUBCUTANEOUS TISSUE BELOW IT. EPIDURAL TUOHY NEEDLE, 17-GAUGE, WAS ADVANCED UNDER FLUOROSCOPIC GUIDANCE AND FOLLOWING PATIENT FEEDBACK UNTIL THE EPIDURAL SPACE WAS REACHED, 7 CM DEEP INTO THE SKIN BY THE LOSS OF RESISTANCE TECHNIQUE. ISOVUE M DYE 30%, 0.25 ML, WAS INJECTED SHOWING ADEQUATE SPREAD OF THE DYE. THEN, A SOLUTION OF 3 ML OF NORMAL SALINE WITH DEPO-MEDROL 60 MG WAS INJECTED SLOWLY FOLLOWING PATIENT FEEDBACK. THERE WAS NO EVIDENCE OF BLOOD, PARESTHESIA OR CEREBROSPINAL FLUID DURING THE PROCEDURE. THE PATIENT WAS SENT TO THE RECOVERY ROOM. THE PATIENT WAS MOVING THE EXTREMITIES AND DOING WELL. THERE WAS NO COMPLICATION DURING THE PROCEDURE. FLUOROSCOPY TIME WAS 14 SECONDS. POST PROCEDURE NOTE THE PATIENT WILL BE SEEN IN A FOLLOW UP IN THE NEXT FEW WEEKS. INSTRUCTIONS WERE GIVEN, QUESTIONS WERE ANSWERED, AND THE PATIENT EXPRESSED UNDERSTANDING AND AGREES WITH THE PLAN. I, ZACARIAS VICKERS, DOCUMENTED THE ABOVE INFORMATION ACTING A SCRIBE FOR DR. ASHRAF. I HAVE REVIEWED THE ABOVE DOCUMENT, WRITTEN BY ZACARIAS PRICEIBJoanna AND I VERIFY THAT IT IS ACCURATE DIAGNOSTIC IMAGING [facility] FLUORO GUIDE SPINE INJECTION (PAIN)[id number] PROCEDURE CODES 47948 LUMBAR/SACRAL W/ IMAGING 6045F RADXPS IN END [id number] PXD DISPOSITION & COMMUNICATION FOLLOW UP 3 WEEKS ELECTRONICALLY SIGNED BY STELLA ASHRAF MD ON 04/22/2017 AT 08:48 PM EDT DISCLAIMER : THIS IS A VISIT SUMMARY EXTRACTED FROM THE [employer] CHART. IT IS NOT A COPY OF THE [employer] PROGRESS NOTE. LAURA
== END ==
LOC: M PAIN 08:40
PROVIDERS: ATTEND Anesthesiology
DX: G89.29 Other chronic pain (principal); M51.17 Intervertebral disc disorders with radiculopathy, lumbosacral region; M54.2 Cervicalgia; I10 Essential (primary) hypertension; F41.9 Anxiety disorder, unspecified; F32.9 Major depressive disorder, single episode, unspecified; E78.5 Hyperlipidemia, unspecified; K21.9 Gastro-esophageal reflux disease without esophagitis; Z79.899 Other long term (current) drug therapy; Z88.0 Allergy status to penicillin; Z88.1 Allergy status to other antibiotic agents

== ENCOUNTER → 2017-06-09 | Outpatient (CLI) | payer OTHER ==
[~2017-06-09] MED LIST changes: -ISOVUE-M 300 61% 15ML VIAL (Q9967) As Ordered ONE; -LIDOCAINE 1% SDV INJ 30 ML VIAL As Ordered ONE; -diazePAM 5 MG TAB As Ordered ONE; -methylPREDNISolone SUSP 40 MG/ML (DEPO-medrol) VIAL (J1030) As Ordered ONE; -oxyCODONE 5MG TAB As Ordered ONE
--- NOTE | 2017-06-22 23:23 | ECWPNPC ---
PATIENT NAME: JOI MCCLAIN : 1965 GENDER: FEMALE VISIT DATE: 06/09/2017 DISCHARGE DATE: 06/09/17 1500 VISIT LOCKED DATE TIME: PHYSICIAN: VALENTINA MERINO RESOURCE: VALENTINA MERINO REASON FOR APPOINTMENT 1. BACK HISTORY OF PRESENT ILLNESS HISTORY OF PRESENT ILLNESS: PAIN THE PATIENT DESCRIBES THE PAIN... FALL RISK SCREENING: SCREENING :NO FALLS IN THE PAST YEAR TODAY'S VISIT: NOTES: RATES PAIN TODAY 9/10. STATES HAS BEEN HAVING MORE BAD DAYS THAN GOOD. PAIN IS IN CENTER BACK AND RADIATES DOWN BOTH LEGS TO FEET. NOTES INTENSE DISCOMFORT IN BOTH CALVES. REPORTS PAIN MEDS ARE NOT EFFECTIVE. BACLOFEN STILL HELPS WITH CRAMPS. SLEEP IS VERY POOR DUE TO PAIN. CURRENT MEDICATIONS TAKING LINZESS 145MCG CAPSULE 1 CAPSULE ORALLY ONCE A DAY NEEDED TAKING IMITREX 50 MG TABLET 1 TABLET NEEDED ONE TIME, MAY REPEAT IN 2 HOURS IF HEADACHE STILL PRESENT, MDD 2 ORALLY DIRECTED TAKING OMEPRAZOLE 40MG 40 MG CAPSULE 1 CAP(S) ORAL ONCE DAILY TAKING BACLOFEN 20 MG TABLET 1 TABLET ORALLY 1/2 TAB AM AND PM AND WHOLE TAB AT BEDTIME TAKING GABAPENTIN 300 MG CAPSULE 1 ORALLY QID TAKING BUSPIRONE HCL 7.5 MG TABLET 1 TABLET ORALLY THREE TIMES A DAY TAKING HYDROCHLOROTHIAZIDE 12.5 MG TABLET 1 TABLET ORALLY ONCE A DAY TAKING ZOFRAN 4 MG TABLET 2 TABLETS ORALLY BID PRN TAKING CYMBALTA 60 MG CAPSULE DELAYED RELEASE PARTICLES 1 CAPSULE ORALLY ONCE A DAY TAKING MORPHINE SULFATE 15 MG TABLET 1 TABLET ORALLY EVERY 6 HRS PRN PAIN MDD=4 TAKING ATIVAN 0.5 MG TABLET 1 TAB ORALLY HS PRN, MAY REPEAT X 1 ( MDD=2) NOT-TAKING PROMETHAZINE HCL 50 MG TABLET DIRECTED ORALLY EVERY 6 HOURS PRN NOT-TAKING ATORVASTATIN CALCIUM 10 MG TABLET 1 TABLET ORALLY ONCE A DAY NOT-TAKING OMEPRAZOLE 40MG CAPSULE DELAYED RELEASE TAKE ONE CAPSULE BY MOUTH TWICE DAILY NOT-TAKING LIPITOR 40 MG TABLET 1 TABLET ORALLY ONCE A DAY NOT-TAKING WELLBUTRIN SR 150 MG TABLET EXTENDED RELEASE 12 HOUR 1 TABLET ORALLY TWICE A DAY MEDICATION LIST REVIEWED AND RECONCILED WITH THE PATIENT PAST MEDICAL HISTORY DEPRESSION HYPERTENSION HYPERLIPIDEMIA INSOMNIA IBS REFLUX CHRONIC BACK PAIN ALLERGIES PENICILLIN (FOR ALLERGIES USE ONLY): HIVES: ALLERGY ANCEF: HIVES: ALLERGY REVIEW OF SYSTEMS REVIEWED BY: PROVIDER: VALENTINA MERINO [employer]ESS JOGGER . CONSTITUTIONAL: ANY CHANGE IN YOUR MEDICAL CONDITION? NO . CHILLS NO . FEVER NO . INFECTION: DO YOU HAVE NEW INFECTIONS? NO . DO YOU HAVE HISTORY OF MRSA? NO . MUSCULOSKELETAL: ANY NEW PATTERNS OF PAIN OR NUMBNESS? NO . GASTROENTEROLOGY: ANY NEW CHANGE IN BOWEL CONTROL? NO . GENITOURINARY: ANY NEW CHANGE IN BLADDER CONTROL? NO . IS THERE A CHANCE YOU COULD BE ? NO . HEMATOLOGY/LYMPH: DO YOU TAKE ANY BLOOD THINNERS? (FOR EXAMPLE- COUMADIN, PLAVIX, AGGRENOX, PLATEL, PRADAXA, OR XARELTO) NO . WHEN WAS YOUR LAST DOSE? DATE: TIME: . NEUROLOGY: HAVE YOU FALLEN IN THE PAST 6 MONTHS? NO . ANY NEW EXTREMITY NUMBNESS OR WEAKNESS? NO . CARDIOLOGY: DO YOU HAVE A PACEMAKER OR DEFIBRILLATOR? NO . RESPIRATORY: HAVE YOU BEEN SICK IN THE PAST WEEK? NO . FEVER NO . FLU LIKE SYMPTOMS? NO . COUGH NO . INTEGUMENTARY: DO YOU HAVE ANY RASHES OR OPEN SORES? NO . ALLERGIC/IMMUNO: ARE YOU ALLERGIC TO SHELLFISH OR IV DYE? NO . ANY NEW ALLERGIES? NO . PSYCHIATRIC: DO YOU HAVE THOUGHTS OF HURTING YOURSELF OR SOMEONE ELSE? NO . ARE YOU ABUSED, NEGLECTED, OR IN AN UNSAFE ENVIRONMENT? NO . ENDOCRINOLOGY: ARE YOU DIABETIC? NO . OTHER: DO YOU NEED ANY PRESCRIPTIONS? YES . IF YES, PLEASE LIST: BACLOFEN, MORPHINE . ANY NEW PROBLEMS WITH YOUR MEDICATIONS? NO . WHEN DID YOU LAST EAT? ____ . WHEN DID YOU LAST DRINK? ____ . WHAT DID YOU LAST DRINK? ____ . NAME OF PERSON DRIVING YOU HOME? ____ . DO YOU HAVE ANY OTHER QUESTIONS OR CONCERNS NO . VITAL SIGNS WT 170.2 LBS, HT 63 IN, BMI 30.15 INDEX, BP 104/69 MM HG, HR 87 /MIN, RR 16 /MIN, TEMP 96.7 F, OXYGEN SAT % 99%, NA INITIALS SC 14:15, REVIEWED BY: NL. EXAMINATION GENERAL EXAMINATION: GENERAL APPEARANCE:COLOR PALE. PSYCHALERT , ORIENTED X 3 , APPROPRIATE MOOD AND AFFECT . LUNGS:CLEAR TO AUSCULTATION BILATERALLY. HEART:HEART RATE REGULAR, RAPID. MUSCULOSKELETAL:EXQUISITE POINT TENDERNESS OVER LUMBAR SPINOUS PROCESSES AND ACROSS THE LUMBOSACRAL AXIS. SPECIFIC TENDERNESS ELICITED WITH PALPATION OVER THE RIGHT SACROILIAC JOINTS. SLOW TO RISE TO STANDING POSITION. GAIT ANTALGIC. DECREASED MUSCLE STRENGTH WITH QUADRICEPS FLEXION. POINT TENDERNESS OVER RIGHT TROCANTERIC [place] REGION. . ASSESSMENTS LUMBAR POST-LAMINECTOMY SYNDROME - M96.1 (PRIMARY) LUMBAR RADICULOPATHY - M54.16 CHRONIC PRESCRIPTION OPIATE USE - Z79.891 TREATMENT LUMBAR POST-LAMINECTOMY SYNDROME START OPANA ER TABLET ER 12 HOUR ABUSE-DETERRENT, 15 MG, 1 TABLET 1 HOUR BEFORE OR 2 HOURS AFTER EATING, ORALLY, EVERY 12 HRS CHRONIC PAIN MDD=2, 30 DAY(S), 60, REFILLS 0 REFILL BACLOFEN TABLET, 20 MG, 1 TABLET, ORALLY, 1/2 TAB AM AND PM AND WHOLE TAB AT BEDTIME, 30 DAY(S), 60, REFILLS 5 REFILL MORPHINE SULFATE TABLET, 15 MG, 1 TABLET, ORALLY, EVERY 6 HRS PRN PAIN MDD=4, 30 DAY(S), 120, REFILLS 0 [facility] MRI LS SPINE W/O AND WITH [id number],SUSAN M 06/09/2017 2:37:45 PM > INCREASING RADICULAR PAIN TRANSFORAMINAL LUMB VALENTINA BRAVO 06/09/2017 2:51:41 PM > BILATERAL L4-5 AND L5-S1 CLINICAL NOTES: ISTOP REGISTRY REVIEWED AND DEMNOSTRATES COMPLLIANCE. BRINGS IN MEDICATIONS WHICH IS APPROPRIATE FOR WHAT WAS DISPENSED. RECENT URINE TOXICOLOGY REVIEWED. NO UNAUTHORIZED MEDICATIONS. NO ILLICIT SUBSTANCES AND PRESCRIBED MEDICATIONS WERE PRESENT. REFERRAL TO:[facility] ([facility])NEUROSURGERY REASON:POST LAMI WITH INCREASED PAIN, RADICULAR SYMPTOMS PREVENTIVE MEDICINE REVIEWED PRE PROCEDURE CARE WITH UNDERSTANDING EXPRESSED. PROCEDURE CODES FA211 ESTABILISHED PATIENT [facility] FAC[facility] CHARGE DISPOSITION & COMMUNICATION FOLLOW UP 26-28 DAYS (REASON: BACK PAIN) ELECTRONICALLY SIGNED BY MICHELLE GONZALEZ ON 06/22/2017 AT 12:45 PM EDT DISCLAIMER : THIS IS A VISIT SUMMARY EXTRACTED FROM THE [employer] CHART. IT IS NOT A COPY OF THE [employer] PROGRESS NOTE. LAURA
== END ==
LOC: M PAIN 13:30
PROVIDERS: ATTEND Nurse Practitioner Family
DX: M96.1 Postlaminectomy syndrome, not elsewhere classified (principal); M54.16 Radiculopathy, lumbar region; R35.1 Nocturia; K21.0 Gastro-esophageal reflux disease with esophagitis; F32.9 Major depressive disorder, single episode, unspecified; I10 Essential (primary) hypertension; E78.5 Hyperlipidemia, unspecified; F17.210 Nicotine dependence, cigarettes, uncomplicated; Z88.0 Allergy status to penicillin; Z88.8 Allergy status to other drugs, medicaments and biological substances; Z79.891 Long term (current) use of opiate analgesic; Z79.899 Other long term (current) drug therapy

== ENCOUNTER → 2017-07-08 | Outpatient (REF) | payer OTHER ==
[2017-07-08 17:01] LABS: ALBUMIN 3.8 GM/DL (3.2-5.2); ALBUMIN/GLOBULIN RATIO 1.06 (1.00-1.93); ALKALINE PHOSPHATASE 96 U/L (45-117); ALT/SGPT 14 U/L (12-78); ANION GAP 12 MEQ/L (8-16); AST/SGOT 13 U/L (15-37); BASO % 0.5 % (0.0-1.0); BILIRUBIN,TOTAL 0.4 MG/DL (0.2-1.0); BLOOD UREA NITROGEN 5 MG/DL (7-18); CALCIUM LEVEL 9.3 MG/DL (8.5-10.1); CARBON DIOXIDE LEVEL 29 MEQ/L (21-32); CHLORIDE LEVEL 93 MEQ/L (98-107); CHOLESTEROL LEVEL 187 MG/DL (<200); EOS # 0.1 K/mm3 (0.0-0.50); EOS % 1.7 % (0.0-3.0); FREE T4 1.19 NG/DL (0.76-1.46); GLOMERULAR FILTRATION RATE > 60.0 (>51); GLUCOSE, FASTING 110 MG/DL (70-105); LARGE UNSTAINED CELL # 0.1 K/mm3 (0.0-0.4); LARGE UNSTAINED CELL % 1.3 % (0.0-4.0); LYMPH # 2.6 K/mm3 (1.5-4.5); LYMPH % 37.7 % (24.0-44.0); MEAN CORPUSCULAR HEMOGLOBIN 31.5 pg (27.0-33.0); MEAN CORPUSCULAR HGB CONC 33.8 g/dl (32.0-36.5); MEAN CORPUSCULAR VOLUME 93.2 fl (80.0-96.0); MONO # 0.4 K/mm3 (0.0-0.8); MONO % 5.3 % (0.0-5.0); NEUTROPHILS # 3.6 K/mm3 (1.8-7.7); NEUTROPHILS % 53.5 % (36.0-66.0); PLATELET COUNT, AUTOMATED 298 k/mm3 (150-450); RED CELL DISTRIBUTION WIDTH 12.9 % (11.5-14.5); SODIUM LEVEL 134 MEQ/L (136-145); TOTAL PROTEIN 7.4 GM/DL (6.4-8.2); TRIGLYCERIDES LEVEL 174 MG/DL (<150); WHITE BLOOD COUNT 6.7 K/mm3 (4.0-10.0)
[2017-07-08 17:58] LABS: VITAMIN B12 LEVEL 652 PG/ML
== END ==
LOC: M SFHCCLAY 09:25
PROVIDERS: ATTEND Physician Assistant
DX: I10 Essential (primary) hypertension (principal); E78.2 Mixed hyperlipidemia; R53.83 Other fatigue

== ENCOUNTER → 2017-07-11 | Outpatient (CLI) | payer OTHER ==
--- NOTE | 2017-07-11 15:22 | REP ---
MRI LUMBAR SPINE WITHOUT CONTRAST: Limited exam. HISTORY: Lumbar post laminectomy syndrome. Low back pain. Surgery 10 years ago. Right leg pain. TECHNIQUE: Sagittal T2-weighted scans were accomplished. This claustrophobic patient could not continue the examination after this point. She declined further attempts. Comparison MRI study May 24, 2016. MR FINDINGS: Sagittal T2-weighted scans demonstrate preserved vertebral body heights and normal alignment. Significant disc space narrowing is again noted at L4-5 and L5-S1 as before. There is posterior osteophytic ridging at these two levels. No new disc herniation is seen. No thecal sac compression is evident. No neural foraminal narrowing is seen. The other disc levels are unremarkable. Postoperative changes are seen at L4-5 as before. Perineural cyst is seen in the second sacral segment region of the canal. IMPRESSION: Limited study shows no significant change from May 24, 2016. Signed by Carlos Garcia MD 07/11/2017 05:11 P
== END ==
LOC: M PLARAD 14:05
PROVIDERS: ATTEND Nurse Practitioner Family
DX: M54.5 Low back pain (principal)

== ENCOUNTER → 2017-07-16 | Outpatient (CLI) | payer OTHER ==
[~2017-07-16] MED LIST changes: +ISOVUE-M 300 61% 15ML VIAL (Q9967) As Ordered ONE; +LIDOCAINE 1% SDV INJ 30 ML VIAL As Ordered ONE; +ONDANSETRON 4 MG ORAL DISINTEGRATING TAB (S0181) As Ordered ONE; +diazePAM 5 MG TAB As Ordered ONE; +methylPREDNISolone SUSP 40 MG/ML (DEPO-medrol) VIAL (J1030) As Ordered ONE; +oxyCODONE 5MG TAB As Ordered ONE
--- NOTE | 2017-07-17 09:12 | REP ---
FLUOROSCOPIC GUIDED SPINE INJECTION: All imaging was reviewed with Dr. Mayen prior to dictation. The portable C-arm was provided in the OR for Dr. Mcgee for fluoroscopic guidance. Two intraoperative fluoroscopic spot films were obtained using last image hold technologist for needle placement verification for this fluoroscopic guided lumbar spine injection. The films are on the PACS system and are available for review. 9 seconds of fluoroscopy time were utilized for this procedure. Reviewed by KODY Tamez 07/17/2017 09:47 AEdited and Signed by Costa Mayen MD 07/17/2017 08:00 P
--- NOTE | 2017-07-23 01:18 | ECWPNPC ---
PATIENT NAME: JOI MCCLAIN : 1965 GENDER: FEMALE VISIT DATE: 07/16/2017 DISCHARGE DATE: 07/16/17 1514 VISIT LOCKED DATE TIME: PHYSICIAN: STELLA ASHRAF RESOURCE: STELLA ASHRAF REASON FOR APPOINTMENT 1. TRANSFORAMINAL HISTORY OF PRESENT ILLNESS HISTORY OF PRESENT ILLNESS: PAIN THE PATIENT DESCRIBES THE PAIN... FALL RISK SCREENING: SCREENING :NO FALLS IN THE PAST YEAR CURRENT MEDICATIONS TAKING LINZESS 145MCG CAPSULE 1 CAPSULE ORALLY ONCE A DAY NEEDED, NOTES: 07/15/17 1800 TAKING IMITREX 50 MG TABLET 1 TABLET NEEDED ONE TIME, MAY REPEAT IN 2 HOURS IF HEADACHE STILL PRESENT, MDD 2 ORALLY DIRECTED, NOTES: > 1 MONTH AGO TAKING OMEPRAZOLE 40MG 40 MG CAPSULE 1 CAP(S) ORAL ONCE DAILY, NOTES: 07/15/172099 TAKING BUSPIRONE HCL 7.5 MG TABLET 1 TABLET ORALLY THREE TIMES A DAY, NOTES: 07/15/272099 TAKING HYDROCHLOROTHIAZIDE 12.5 MG TABLET 1 TABLET ORALLY ONCE A DAY, NOTES: 07/15/172099 TAKING ZOFRAN 4 MG TABLET 2 TABLETS ORALLY BID PRN, NOTES: 07/15/172099 TAKING BACLOFEN 20 MG TABLET 1 TABLET ORALLY 1/2 TAB AM AND PM AND WHOLE TAB AT BEDTIME, NOTES: 07/15/172099 TAKING CYMBALTA 60 MG CAPSULE DELAYED RELEASE PARTICLES 1 CAPSULE ORALLY ONCE A DAY, NOTES: 07/15/172199 TAKING CYMBALTA 30 MG CAPSULE DELAYED RELEASE PARTICLES 1 CAPSULE ORALLY ONCE A DAY, NOTES: 07/15/172199 TAKING ERGOCALCIFEROL 85439 UNIT CAPSULE 1 CAPSULE ORALLY ONCE A WEEK, NOTES: 07/15/172099 TAKING ATIVAN 0.5 MG TABLET 1 TAB ORALLY HS PRN, MAY REPEAT X 1 ( MDD=2), NOTES: > 1 WEEK TAKING GABAPENTIN 300 MG CAPSULE 1 ORALLY QID, NOTES: 07/09/17 TAKING MORPHINE SULFATE 15 MG TABLET 1 TABLET ORALLY EVERY 6 HRS PRN PAIN MDD=4, NOTES: 07/16/17 0600 NOT-TAKING OPANA ER 15 MG TABLET ER 12 HOUR ABUSE-DETERRENT 1 TABLET 1 HOUR BEFORE OR 2 HOURS AFTER EATING ORALLY EVERY 12 HRS CHRONIC PAIN MDD=2, NOTES: INSURANCE DIDN'T COVER IT, PT WAS NEVER ABLE TO FILL PRESCRIPTION NOT-TAKING MORPHINE SULFATE ER 30 MG CAPSULE EXTENDED RELEASE 24 HOUR 1 CAPSULE ORALLY Q 12 HOURS CHRONIC PAIN MDD=2, NOTES: NEVER GOT NOT-TAKING HYDROXYZINE HCL 50 MG TABLET 1 TABLET NEEDED ORALLY BEFORE BED, NOTES: NOT TAKING YET NOT-TAKING PROMETHAZINE HCL 50 MG TABLET DIRECTED ORALLY EVERY 6 HOURS PRN NOT-TAKING ATORVASTATIN CALCIUM 10 MG TABLET 1 TABLET ORALLY ONCE A DAY NOT-TAKING OMEPRAZOLE 40MG CAPSULE DELAYED RELEASE TAKE ONE CAPSULE BY MOUTH TWICE DAILY NOT-TAKING LIPITOR 40 MG TABLET 1 TABLET ORALLY ONCE A DAY NOT-TAKING WELLBUTRIN SR 150 MG TABLET EXTENDED RELEASE 12 HOUR 1 TABLET ORALLY TWICE A DAY MEDICATION LIST REVIEWED AND RECONCILED WITH THE PATIENT PAST MEDICAL HISTORY DEPRESSION HYPERTENSION HYPERLIPIDEMIA INSOMNIA IBS REFLUX CHRONIC BACK PAIN ALLERGIES PENICILLIN (FOR ALLERGIES USE ONLY): HIVES: ALLERGY ANCEF: HIVES: ALLERGY SURGICAL HISTORY BACK SURGERY 2007 GALL BLADDER HYSTERECTOMY 1994 HOSPITALIZATION/MAJOR DIAGNOSTIC PROCEDURE FOR SURGERIES REVIEW OF SYSTEMS REVIEWED BY: PROVIDER: . CONSTITUTIONAL: ANY CHANGE IN YOUR MEDICAL CONDITION? NO . CHILLS NO . FEVER NO . INFECTION: DO YOU HAVE NEW INFECTIONS? NO . DO YOU HAVE HISTORY OF MRSA? NO . MUSCULOSKELETAL: ANY NEW PATTERNS OF PAIN OR NUMBNESS? NO . GASTROENTEROLOGY: ANY NEW CHANGE IN BOWEL CONTROL? NO . GENITOURINARY: ANY NEW CHANGE IN BLADDER CONTROL? NO . IS THERE A CHANCE YOU COULD BE ? NO . HEMATOLOGY/LYMPH: DO YOU TAKE ANY BLOOD THINNERS? (FOR EXAMPLE- COUMADIN, PLAVIX, AGGRENOX, PLATEL, PRADAXA, OR XARELTO) NO . WHEN WAS YOUR LAST DOSE? DATE: TIME: . NEUROLOGY: HAVE YOU FALLEN IN THE PAST 6 MONTHS? NO . ANY NEW EXTREMITY NUMBNESS OR WEAKNESS? NO . CARDIOLOGY: DO YOU HAVE A PACEMAKER OR DEFIBRILLATOR? NO . RESPIRATORY: HAVE YOU BEEN SICK IN THE PAST WEEK? NO . FEVER NO . FLU LIKE SYMPTOMS? NO . COUGH NO . INTEGUMENTARY: DO YOU HAVE ANY RASHES OR OPEN SORES? NO . ALLERGIC/IMMUNO: ARE YOU ALLERGIC TO SHELLFISH OR IV DYE? NO . ANY NEW ALLERGIES? NO . PSYCHIATRIC: DO YOU HAVE THOUGHTS OF HURTING YOURSELF OR SOMEONE ELSE? NO . ARE YOU ABUSED, NEGLECTED, OR IN AN UNSAFE ENVIRONMENT? NO . ENDOCRINOLOGY: ARE YOU DIABETIC? NO . OTHER: DO YOU NEED ANY PRESCRIPTIONS? NO . IF YES, PLEASE LIST: ____ . ANY NEW PROBLEMS WITH YOUR MEDICATIONS? NO . WHEN DID YOU LAST EAT? 07-15-17 PM . WHEN DID YOU LAST DRINK? 07-16-17 9AM . WHAT DID YOU LAST DRINK? COFFEE . NAME OF PERSON DRIVING YOU HOME? SAMIA MCCLAIN . DO YOU HAVE ANY OTHER QUESTIONS OR CONCERNS NO . VITAL SIGNS WT 164.8 LBS, HT 63 IN, BMI 29.19 INDEX, BP 119/65 MM HG, HR 92 /MIN, RR 16 /MIN, TEMP 97.2 F, OXYGEN SAT % 97, NA INITIALS MP 1311, REVIEWED BY: CM. ASSESSMENTS INTERVERTEBRAL DISC DISORDER WITH RADICULOPATHY OF LUMBOSACRAL REGION - M51.17 (PRIMARY) PROCEDURES PRE PROCEDURE DIAGNOSIS LUMBOSACRAL DISC DISORDER WITH RADICULOPATHY POST PROCEDURE DIAGNOSIS LUMBOSACRAL DISC DISORDER WITH RADICULOPATHY PROCEDURE LUMBAR EPIDURAL STEROID INJECTION UNDER FLUOROSCOPIC GUIDANCE SURGEON DR. STELLA ASHRAF DEPUTY CHIEF MAGISTRATE NONE ANESTHESIA LOCAL PRE PROCEDURE NOTE THE PATIENT HAS A HISTORY OF CHRONIC LOW BACK PAIN. I EVALUATE THE PATIENT AND REVIEWED THE CHART. I WENT OVER THE RISKS, ALTERNATIVES, AND BENEFITS ASSOCIATED WITH THIS PROCEDURE. THE PATIENT WOULD LIKE TO PROCEED AND GIVE CONSENT TO PERFORMED THE PROCEDURE. THE PATIENT DENIES UNEXPLAINABLE WEIGHT LOSS, FEVER, CHILLS, OR NEW CHANGES IN URINARY OR BOWEL CONTROL. DESCRIPTION OF PROCEDURE THE PATIENT WAS BROUGHT TO THE PROCEDURE ROOM AND PLACED IN THE PRONE POSITION. THE LUMBOSACRAL AREA WAS CLEANED WITH BETADINE SOLUTION AND DRAPED ASEPTICALLY. THE PROCEDURE WAS DONE UNDER STERILE CONDITIONS. I CHECKED LATERALITY AND THE LEVEL WHERE THE PROCEDURE WAS GOING TO BE PERFORMED WITH THE PATIENT AND THE SUPPORTING STAFF AT THE MOMENT OF THE TIME OUT IN THE PROCEDURE ROOM. UNDER FLUOROSCOPIC GUIDANCE, THE TARGET POINT WAS SELECTED AT THE INTERLAMINAR LEVEL OF L5-S1. LIDOCAINE WAS USED TO NUMB THE SKIN AND THE SUBCUTANEOUS TISSUE BELOW IT. EPIDURAL TUOHY NEEDLE, 17-GAUGE, WAS ADVANCED UNDER FLUOROSCOPIC GUIDANCE AND FOLLOWING PATIENT FEEDBACK UNTIL THE EPIDURAL SPACE WAS REACHED, 7 CM DEEP INTO THE SKIN BY THE LOSS OF RESISTANCE TECHNIQUE. ISOVUE M DYE 30%, 0.25 ML, WAS INJECTED SHOWING ADEQUATE SPREAD OF THE DYE. THEN, A SOLUTION OF 3 ML OF NORMAL SALINE WITH DEPO-MEDROL 60 MG WAS INJECTED SLOWLY FOLLOWING PATIENT FEEDBACK. THERE WAS NO EVIDENCE OF BLOOD, PARESTHESIA OR CEREBROSPINAL FLUID DURING THE PROCEDURE. THE PATIENT WAS SENT TO THE RECOVERY ROOM. THE PATIENT WAS MOVING THE EXTREMITIES AND DOING WELL. THERE WAS NO COMPLICATION DURING THE PROCEDURE. FLUOROSCOPY TIME WAS 9 SECONDS. POST PROCEDURE NOTE THE PATIENT WILL BE SEEN IN A FOLLOW UP IN THE NEXT FEW WEEKS. INSTRUCTIONS WERE GIVEN, QUESTIONS WERE ANSWERED, AND THE PATIENT EXPRESSED UNDERSTANDING AND AGREES WITH THE PLAN. I, ZACARIAS VICKERS, DOCUMENTED THE ABOVE INFORMATION ACTING A SCRIBE FOR DR. ASHRAF. I HAVE REVIEWED THE ABOVE DOCUMENT, WRITTEN BY ZACARIAS RODRIGUEZ AND I VERIFY THAT IT IS ACCURATE DIAGNOSTIC IMAGING [facility] FLUORO GUIDE SPINE INJECTION (PAIN)[id number] PROCEDURE CODES 42818 LUMBAR/SACRAL W/ IMAGING 6045F RADXPS IN END [id number] PXD DISPOSITION & COMMUNICATION FOLLOW UP 3 WEEKS ELECTRONICALLY SIGNED BY STELLA ASHRAF MD ON 07/21/2017 AT 12:57 PM EDT DISCLAIMER : THIS IS A VISIT SUMMARY EXTRACTED FROM THE [employer] CHART. IT IS NOT A COPY OF THE [employer], PROGRESS NOTE. MTDGeorge
== END ==
LOC: M PAIN 13:00
PROVIDERS: ATTEND Anesthesiology
DX: G89.29 Other chronic pain (principal); M51.17 Intervertebral disc disorders with radiculopathy, lumbosacral region; F32.9 Major depressive disorder, single episode, unspecified; I10 Essential (primary) hypertension; E78.5 Hyperlipidemia, unspecified; F17.200 Nicotine dependence, unspecified, uncomplicated; K21.9 Gastro-esophageal reflux disease without esophagitis; F41.9 Anxiety disorder, unspecified; E78.2 Mixed hyperlipidemia; Z88.0 Allergy status to penicillin; Z88.8 Allergy status to other drugs, medicaments and biological substances; Z79.891 Long term (current) use of opiate analgesic; Z79.899 Other long term (current) drug therapy
CPT/HCPCS: 62323; J1030; Q9967

== ENCOUNTER → 2017-09-29 | Outpatient (CLI) | payer OTHER ==
[~2017-09-29] MED LIST changes: -ISOVUE-M 300 61% 15ML VIAL (Q9967) As Ordered ONE; -LIDOCAINE 1% SDV INJ 30 ML VIAL As Ordered ONE; -ONDANSETRON 4 MG ORAL DISINTEGRATING TAB (S0181) As Ordered ONE; -diazePAM 5 MG TAB As Ordered ONE; -methylPREDNISolone SUSP 40 MG/ML (DEPO-medrol) VIAL (J1030) As Ordered ONE; -oxyCODONE 5MG TAB As Ordered ONE
--- NOTE | 2017-10-04 00:34 | ECWPNPC ---
PATIENT NAME: JOI MCCLAIN : 1965 GENDER: FEMALE VISIT DATE: 09/29/2017 DISCHARGE DATE: 09/29/17 1418 VISIT LOCKED DATE TIME: PHYSICIAN: VALENTINA MERINO RESOURCE: VALENTINA MERINO REASON FOR APPOINTMENT 1. NEW BODY PART, MYOFACIAL PAIN AND VENTURA TROCHANTERIC BURSITIS HISTORY OF PRESENT ILLNESS HISTORY OF PRESENT ILLNESS: PAIN THE PATIENT DESCRIBES THE PAIN... FALL RISK SCREENING: SCREENING :NO FALLS IN THE PAST YEAR TODAY'S VISIT: NOTES: RATES PAIN TODAY 1010 IS SEEN TODAY FOR NEW BODY PART INVOLVING PAIN IN BOTH HIPS. NOTES THAT PAIN IS CENTERED OVER THE HIP BONES WITH SHOOTING PAIN DOWN LEGS TO JUST ABOVE THE KNEE AND ALSO HAS LONG STANDING LEG PAIN FROM BACK ISSUES. THIS PAIN BEGAN TO INTENSIFY ABOUT 3-4 MONTHS AGO. PAIN IS AGGRAVATED BY DRIVING, PROLONGED SITTING OR STANDING OR ATTEPTING TO SLEEP ON SIDES. RIGHT IS WORSE THAN LEFT. HAS BEEN USING HEAT/ICE AND HER USUAL PAIN MEDS. FELL 2 WEEKS AGO AND INJURED RIGHT FLANK. NO NEW NUMBNESS/TINGLING TO THE LEGS.. CURRENT MEDICATIONS TAKING LINZESS 145MCG CAPSULE 1 CAPSULE ORALLY ONCE A DAY NEEDED TAKING OMEPRAZOLE 40MG 40 MG CAPSULE 1 CAP(S) ORAL ONCE DAILY TAKING HYDROCHLOROTHIAZIDE 12.5 MG TABLET 1 TABLET ORALLY ONCE A DAY TAKING BACLOFEN 20 MG TABLET 1 TABLET ORALLY 1/2 TAB AM AND PM AND WHOLE TAB AT BEDTIME TAKING ERGOCALCIFEROL 26502 UNIT CAPSULE 1 CAPSULE ORALLY ONCE A WEEK TAKING GABAPENTIN 300 MG CAPSULE 1 ORALLY QID TAKING ZOFRAN 4 MG TABLET 2 TABLETS ORALLY BID PRN TAKING MORPHINE SULFATE 15 MG TABLET 1 TABLET ORALLY EVERY 6 HRS PRN PAIN MDD=4 TAKING HYDROXYZINE HCL 50 MG TABLET 1-2 TABS NEEDED ORALLY BEFORE BED TAKING CYMBALTA 60 MG CAPSULE DELAYED RELEASE PARTICLES 1 CAPSULE ORALLY ONCE A DAY TAKING IMITREX 50 MG TABLET 1 TABLET NEEDED ONE TIME, MAY REPEAT IN 2 HOURS IF HEADACHE STILL PRESENT, MDD 2 ORALLY DIRECTED TAKING ATIVAN 0.5 MG TABLET 1 TAB ORALLY HS PRN, MAY REPEAT X 1 ( MDD=2) NOT-TAKING BUSPIRONE HCL 7.5 MG TABLET 1 TABLET ORALLY THREE TIMES A DAY NOT-TAKING CYMBALTA 60 MG CAPSULE DELAYED RELEASE PARTICLES 1 CAPSULE ORALLY ONCE A DAY NOT-TAKING OPANA ER 15 MG TABLET ER 12 HOUR ABUSE-DETERRENT 1 TABLET 1 HOUR BEFORE OR 2 HOURS AFTER EATING ORALLY EVERY 12 HRS CHRONIC PAIN MDD=2, NOTES: INSURANCE DIDN'T COVER IT, PT WAS NEVER ABLE TO FILL PRESCRIPTION NOT-TAKING MORPHINE SULFATE ER 30 MG CAPSULE EXTENDED RELEASE 24 HOUR 1 CAPSULE ORALLY Q 12 HOURS CHRONIC PAIN MDD=2, NOTES: NEVER GOT NOT-TAKING PROMETHAZINE HCL 50 MG TABLET DIRECTED ORALLY EVERY 6 HOURS PRN NOT-TAKING ATORVASTATIN CALCIUM 10 MG TABLET 1 TABLET ORALLY ONCE A DAY NOT-TAKING OMEPRAZOLE 40MG CAPSULE DELAYED RELEASE TAKE ONE CAPSULE BY MOUTH TWICE DAILY NOT-TAKING LIPITOR 40 MG TABLET 1 TABLET ORALLY ONCE A DAY NOT-TAKING WELLBUTRIN SR 150 MG TABLET EXTENDED RELEASE 12 HOUR 1 TABLET ORALLY TWICE A DAY MEDICATION LIST REVIEWED AND RECONCILED WITH THE PATIENT PAST MEDICAL HISTORY DEPRESSION HYPERTENSION HYPERLIPIDEMIA INSOMNIA IBS REFLUX CHRONIC BACK PAIN ALLERGIES PENICILLIN (FOR ALLERGIES USE ONLY): HIVES: ALLERGY ANCEF: HIVES: ALLERGY SURGICAL HISTORY BACK SURGERY 2008 GALL BLADDER 1989 HYSTERECTOMY 1993 FAMILY HISTORY FATHER: , DIAGNOSED WITH HEART DISEASE MOTHER: , DIAGNOSED WITH HEART DISEASE, STROKE, CANCER, OTHER MOTHER,AUNT,GRANDMOTHER ALL HAD BREAST CA. SOCIAL HISTORY GENERAL: TOBACCO USE ARE YOU A:CURRENT SMOKER HOW MANY CIGARETTES A DAY DO YOU SMOKE?6-10 HOW SOON AFTER YOU WAKE UP DO YOU SMOKE YOUR FIRST CIGARETTE?6-30 MIN HOW OFTEN DO YOU SMOKE CIGARETTES?EVERY DAY PATIENT COUNSELED ON THE DANGERS OF TOBACCO USE AND URGED TO QUIT:03/26/2017 ARE YOU INTERESTED IN QUITTING?NOT READY TO QUIT COUNSELED THE PATIENT ON SMOKING EFFECTS, EDUCATION [id number]/07/2017 ADDITIONAL FINDINGS: TOBACCO USER NONE VAPORNO E-CIGARETTENO BMI CARE GOAL FOLLOW-UP ABOVE NORMAL BMI FOLLOW-UPDIETARY MANAGEMENT EDUCATION, GUIDANCE, AND COUNSELING ALCOHOL SCREENING DID YOU HAVE A DRINK CONTAINING ALCOHOL IN THE PAST YEAR?NO POINTS0 INTERPRETATIONNEGATIVE RECREATIONAL DRUG USE DRUG USE?NO CAFFEINE CAFFEINE USE?YES COFFEE,DIET PEPSI HIV / HEP-C SCREENING HIV TEST OFFERED TO PATIENT:YES DATE OFFERED:12/19/2016 CONSENT ON FILE TEST ACCEPTED:NO REASON:PATIENT DECLINED HEP-C TEST OFFERED TO PATIENT:YES DATE OFFERED:12/19/2016 CONSENT ON FILE TEST ACCEPTED:NO REASON:PATIENT DECLINED DIET: REGULAR. MARITAL STATUS: . LANGUAGE UZBEK. LEARNING BARRIERS / SPECIAL NEEDS CHANGE FROM LAST VISIT?NO 06/11/2017 BARRIERS TO LEARNING?NO HEARING IMPAIRED?NO VISION IMPAIRED?YES :CORRECTIVE LENSES READING COGNITIVELY IMPAIRED?NO READINESS TO LEARN?YES LEARNING PREFERENCES?NO LEARNING CAPABILITIES PRESENT?YES EMOTIONAL BARRIERS?NO SPECIAL DEVICES?NO ROCK SPLITTER NEEDED?NO NEW PATIENT PAIN DIARY FROM 0-10, WHAT LEVEL IS YOUR PAIN TODAY?9 PAIN CLINIC PFS, CLERGY, PUBLIC HEALTH REFERRALS PFS REFERRAL NEEDED?NO CLERGY REFERRAL NEEDED?NO PUBLIC HEALTH REFERRAL NEEDED?NO ADVANCE DIRECTIVES HEALTH CARE PROXY?NO DECLINES INFORMATION AT THIS TIME POWER OF TECHNOLOGY APPLICATIONS ENGINEER?NO THIS PATIENT LIVES AT HOME WITH HER AND GRAND-DAUGHTER, (WHOM SHE INTENDS TO ADOPT). SHE SLEEPS OKAY ONLY. SHE FRACTURED RIGHT ELBOW, RIGHT CHEEK FRACTURE, AND LEFT WRIST IN PAST. NO HISTORY OF AN EATING DISORDER. SHE DENIES HISTORY OF PHYSICAL/SEXUAL ABUSE. SHE WEARS SEAT BELTS. SHE IS CURRENT WITH IMMUNIZATIONS AND TETANUS. SHE IS UP TO DATE WITH DENTAL AND EYE EXAMINATIONS. SHE TAKES NO VITAMINS OR CALCIUM. HOSPITALIZATION/MAJOR DIAGNOSTIC PROCEDURE FOR SURGERIES REVIEW OF SYSTEMS REVIEWED BY: PROVIDER: VALENTINA JEREZ . CONSTITUTIONAL: ANY CHANGE IN YOUR MEDICAL CONDITION? NO . CHILLS NO . FEVER NO . INFECTION: DO YOU HAVE NEW INFECTIONS? NO . DO YOU HAVE HISTORY OF MRSA? NO . MUSCULOSKELETAL: ANY NEW PATTERNS OF PAIN OR NUMBNESS? NO . GASTROENTEROLOGY: ANY NEW CHANGE IN BOWEL CONTROL? NO . PATIENT COMPLAINING OF SIGNIFICANT PROBLEMS WITH GERD SYMPTOMS AND CONSTIPATION . GENITOURINARY: ANY NEW CHANGE IN BLADDER CONTROL? NO . IS THERE A CHANCE YOU COULD BE ? NO . HEMATOLOGY/LYMPH: DO YOU TAKE ANY BLOOD THINNERS? (FOR EXAMPLE- COUMADIN, PLAVIX, AGGRENOX, PLATEL, PRADAXA, OR XARELTO) NO . WHEN WAS YOUR LAST DOSE? DATE: TIME: . NEUROLOGY: HAVE YOU FALLEN IN THE PAST 6 MONTHS? YES, 2WEEKS AGO AND HIT HARD ON RIGHT SIDE OF LOW THORACIC . ANY NEW EXTREMITY NUMBNESS OR WEAKNESS? NO . CARDIOLOGY: DO YOU HAVE A PACEMAKER OR DEFIBRILLATOR? NO . RESPIRATORY: HAVE YOU BEEN SICK IN THE PAST WEEK? NO . FEVER NO . FLU LIKE SYMPTOMS? NO . COUGH NO . INTEGUMENTARY: DO YOU HAVE ANY RASHES OR OPEN SORES? NO . ALLERGIC/IMMUNO: ARE YOU ALLERGIC TO SHELLFISH OR IV DYE? NO . ANY NEW ALLERGIES? NO . PSYCHIATRIC: DO YOU HAVE THOUGHTS OF HURTING YOURSELF OR SOMEONE ELSE? NO . ARE YOU ABUSED, NEGLECTED, OR IN AN UNSAFE ENVIRONMENT? NO . ENDOCRINOLOGY: ARE YOU DIABETIC? NO . OTHER: DO YOU NEED ANY PRESCRIPTIONS? NO . IF YES, PLEASE LIST: ____ . ANY NEW PROBLEMS WITH YOUR MEDICATIONS? NO . WHEN DID YOU LAST EAT? ____ . WHEN DID YOU LAST DRINK? ____ . WHAT DID YOU LAST DRINK? ____ . NAME OF PERSON DRIVING YOU HOME? ____ . DO YOU HAVE ANY OTHER QUESTIONS OR CONCERNS NO . VITAL SIGNS WT 160.0 LBS, HT 63 IN, BMI 28.34 INDEX, BP 131/73 MM HG, HR 99 /MIN, RR 16 /MIN, TEMP 96.8 F, OXYGEN SAT % 94%, NA INITIALS TL 1324, REVIEWED BY: NL. EXAMINATION GENERAL EXAMINATION: GENERAL APPEARANCE:COLOR PALE, APPEARS VERY UNCOMFORTABLE. PSYCHALERT , ORIENTED X 3 , APPROPRIATE MOOD AND AFFECT . LUNGS:CLEAR TO AUSCULTATION BILATERALLY. HEART:HEART RATE REGULAR, RAPID. MUSCULOSKELETAL:EXQUISITE POINT TENDERNESS BILATERALLY OVER THE TROCANTERIC PROMINENCES AND ILIOTIBIAL BANDS. SLOW TO RISE TO STANDING POSITION. GAIT ANTALGIC. DECREASED MUSCLE STRENGTH WITH QUADRICEPS FLEXION. POSITIVE MARISSA SIGN. . ASSESSMENTS TROCHANTERIC BURSITIS OF LEFT HIP - M70.62 (PRIMARY) TROCHANTERIC BURSITIS, RIGHT HIP - M70.61 TREATMENT TROCHANTERIC BURSITIS OF LEFT HIP START HYDROMORPHONE HCL TABLET, 4 MG, 1 TABLET NEEDED, ORALLY, EVERY 6 HRS PRN PAIN MDD=4, 30 DAY(S), 120, REFILLS 0 START CELECOXIB CAPSULE, 200 MG, 1 CAPSULE WITH FOOD, ORALLY, ONCE A DAY, 14 DAY(S), 14 CAPSULE, REFILLS 0 [facility] CT-HIP WITHOUT [id number],SUSAN M 09/29/2017 2:00:58 PM > RIGHT AND LEFT NOTES: ICE TO HIP AREA.HIP STRETCHES DAILYHAS BEEN TRIALED ON MULTIPLE MEDICATIONS INCLUDING NAPROXEN, IBUPROFEN AND ETODOLAC WITHOUT POSITIVE EFFECT OF PAIN REDUCTION AND WITH SIGNIFICANT GERD SYMPTOMS. HAS ATTENDED PHYSICAL THERAPY WHICH HAS INCREASED BACK AND HIP PAIN. PROCEDURE CODES FA211 ESTABILISHED PATIENT [facility] CHARGE DISPOSITION & COMMUNICATION FOLLOW UP [address] SCAN (REASON: CHECK AUTH FOR HIP CT) ELECTRONICALLY SIGNED BY MICHELLE GONZALEZ ON 10/03/2017 AT 07:28 PM EST DISCLAIMER : THIS IS A VISIT SUMMARY EXTRACTED FROM THE [employer] CHART. IT IS NOT A COPY OF THE [employer] PROGRESS NOTE. LAURA
== END ==
LOC: M PAIN 13:00
PROVIDERS: ATTEND Nurse Practitioner Family
DX: G89.29 Other chronic pain (principal); M70.62 Trochanteric bursitis, left hip; M70.61 Trochanteric bursitis, right hip; K21.9 Gastro-esophageal reflux disease without esophagitis; F32.9 Major depressive disorder, single episode, unspecified; I10 Essential (primary) hypertension; E78.2 Mixed hyperlipidemia; F17.210 Nicotine dependence, cigarettes, uncomplicated; F41.9 Anxiety disorder, unspecified; Z88.0 Allergy status to penicillin; Z88.8 Allergy status to other drugs, medicaments and biological substances; Z79.891 Long term (current) use of opiate analgesic; Z79.899 Other long term (current) drug therapy

== ENCOUNTER → 2017-12-12 | Outpatient (CLI) | payer OTHER | LOC: M PAIN 14:30 | DX: G89.29 Other chronic pain (principal); M96.1 Postlaminectomy syndrome, not elsewhere classified; M70.62 Trochanteric bursitis, left hip; Z79.891 Long term (current) use of opiate analgesic; F32.9 Major depressive disorder, single episode, unspecified; I10 Essential (primary) hypertension; E78.5 Hyperlipidemia, unspecified; G47.00 Insomnia, unspecified; K58.9 Irritable bowel syndrome, unspecified; K21.9 Gastro-esophageal reflux disease without esophagitis; F17.210 Nicotine dependence, cigarettes, uncomplicated; Z79.899 Other long term (current) drug therapy; Z88.0 Allergy status to penicillin; Z88.8 Allergy status to other drugs, medicaments and biological substances; Z88.1 Allergy status to other antibiotic agents | CPT/HCPCS: G0463 ==

== ENCOUNTER → 2018-01-10 | Outpatient (CLI) | payer OTHER | LOC: M RAD 11:02 | DX: M96.1 Postlaminectomy syndrome, not elsewhere classified (principal) | CPT/HCPCS: 73700 ==

== ENCOUNTER → 2018-01-26 | Outpatient (CLI) | payer OTHER ==
[~2018-01-26] MED LIST changes: -/ATOR40TA PO; -AMBI5TAB PO; -AMIT8CAP4 PO; -ATIV1TAB10 PO; -BACL10TA2 PO; -BENT10CA PO; +BUPIVACAINE HCL 0.25% 30 ML VIAL; -DICL100T PO; -FLUO20CA8 PO; -GABA-282 PO; -GABA-283 PO; -GABA300C2 PO; -GABA600T PO; +ISOVUE-M 300 61% 15ML VIAL (Q9967); -LACT20EL PO; +LIDOCAINE 1% SDV INJ 30 ML VIAL; -LINZ145C PO; -LIPI20TA PO; -LISI5TAB PO; -METH75TA PO; -MORP15TA2 PO; -NEXI40CA PO; -OMEP20CA3 PO; -OMEP40CA2 PO; -OXYC-517 PO; -OXYC15TA76 PO; -PERC5TAB PO; -PHEN25IN3 PO; -REGL10TA6 PO; -REST15CA PO; -TIZA4CAP3 PO; -TRAM37.5 PO; -TRAZ50TA2 PO; +TRIAMCINOLONE ACETONIDE SUSP 40 MG/ML VIAL (J3301); -VALI5TAB PO; -VICO5TAB16 PO
== END ==
LOC: M PAIN 10:30
DX: G89.29 Other chronic pain (principal); M70.61 Trochanteric bursitis, right hip; I10 Essential (primary) hypertension; E78.5 Hyperlipidemia, unspecified; F32.9 Major depressive disorder, single episode, unspecified; G47.00 Insomnia, unspecified; Z88.0 Allergy status to penicillin; Z88.8 Allergy status to other drugs, medicaments and biological substances
CPT/HCPCS: 20610; J3301

== ENCOUNTER → 2018-02-03 | Outpatient (CLI) | payer OTHER ==
[~2018-02-03] MED LIST changes: -BUPIVACAINE HCL 0.25% 30 ML VIAL; +BUPIVACAINE HCL 0.25% 30 ML VIAL As Ordered; -ISOVUE-M 300 61% 15ML VIAL (Q9967); +ISOVUE-M 300 61% 15ML VIAL (Q9967) As Ordered; -LIDOCAINE 1% SDV INJ 30 ML VIAL; +LIDOCAINE 1% SDV INJ 30 ML VIAL As Ordered; -TRIAMCINOLONE ACETONIDE SUSP 40 MG/ML VIAL (J3301); +TRIAMCINOLONE ACETONIDE SUSP 40 MG/ML VIAL (J3301) As Ordered; +diazePAM 5 MG TAB As Ordered; +oxyCODONE 5MG TAB As Ordered
== END ==
LOC: M PAIN 10:45
DX: M70.61 Trochanteric bursitis, right hip (principal); M25.551 Pain in right hip; F32.9 Major depressive disorder, single episode, unspecified; I10 Essential (primary) hypertension; E78.5 Hyperlipidemia, unspecified; G47.00 Insomnia, unspecified; K21.9 Gastro-esophageal reflux disease without esophagitis; Z79.899 Other long term (current) drug therapy; Z88.0 Allergy status to penicillin; Z88.8 Allergy status to other drugs, medicaments and biological substances
CPT/HCPCS: J3301

== ENCOUNTER → 2018-02-10 | Outpatient (REF) | payer OTHER ==
[2018-02-10 18:27] LABS: ANION GAP 7 MEQ/L (8-16); BLOOD UREA NITROGEN 14 MG/DL (7-18); CALCIUM LEVEL 9.4 MG/DL (8.5-10.1); CARBON DIOXIDE LEVEL 29 MEQ/L (21-32); CHLORIDE LEVEL 101 MEQ/L (98-107); CREATININE FOR GFR 0.77 MG/DL (0.55-1.30); GLOMERULAR FILTRATION RATE > 60.0 (>51); GLUCOSE, FASTING 75 MG/DL (70-100); POTASSIUM SERUM 3.9 MEQ/L (3.5-5.1); SODIUM LEVEL 137 MEQ/L (136-145)
== END ==
LOC: M SFHCCAPE 09:09
DX: E87.6 Hypokalemia (principal)

== ENCOUNTER → 2018-02-27 | Outpatient (CLI) | payer OTHER | LOC: M PAIN 11:15 | DX: M70.61 Trochanteric bursitis, right hip (principal); M25.551 Pain in right hip; M96.1 Postlaminectomy syndrome, not elsewhere classified; F32.9 Major depressive disorder, single episode, unspecified; I10 Essential (primary) hypertension; E78.5 Hyperlipidemia, unspecified; G47.00 Insomnia, unspecified; K21.9 Gastro-esophageal reflux disease without esophagitis; F17.210 Nicotine dependence, cigarettes, uncomplicated; Z79.891 Long term (current) use of opiate analgesic; Z79.899 Other long term (current) drug therapy; Z88.0 Allergy status to penicillin; Z88.8 Allergy status to other drugs, medicaments and biological substances | CPT/HCPCS: G0463 ==

== ENCOUNTER → 2018-03-17 | Outpatient (CLI) | payer OTHER | LOC: M PAIN 11:15 | DX: G89.29 Other chronic pain (principal); M70.61 Trochanteric bursitis, right hip; M25.551 Pain in right hip; F32.9 Major depressive disorder, single episode, unspecified; I10 Essential (primary) hypertension; E78.5 Hyperlipidemia, unspecified; G47.00 Insomnia, unspecified; K21.9 Gastro-esophageal reflux disease without esophagitis; F17.210 Nicotine dependence, cigarettes, uncomplicated; Z79.899 Other long term (current) drug therapy; Z88.0 Allergy status to penicillin; Z88.8 Allergy status to other drugs, medicaments and biological substances | CPT/HCPCS: J3301 ==

== ENCOUNTER → 2018-06-04 | Outpatient (CLI) | payer OTHER | LOC: M PAIN 09:15 | DX: M96.1 Postlaminectomy syndrome, not elsewhere classified (principal); M70.61 Trochanteric bursitis, right hip; T40.2X5A Adverse effect of other opioids, initial encounter; K59.03 Drug induced constipation; F32.9 Major depressive disorder, single episode, unspecified; I10 Essential (primary) hypertension; E78.5 Hyperlipidemia, unspecified; G47.00 Insomnia, unspecified; K58.9 Irritable bowel syndrome, unspecified; K21.9 Gastro-esophageal reflux disease without esophagitis; Z79.899 Other long term (current) drug therapy; Z88.0 Allergy status to penicillin; Z88.1 Allergy status to other antibiotic agents | CPT/HCPCS: G0463 ==

== ENCOUNTER → 2018-07-14 | Outpatient (CLI) | payer OTHER ==
[~2018-07-14] MED LIST changes: -BUPIVACAINE HCL 0.25% 30 ML VIAL As Ordered; +ONDANSETRON 4 MG ORAL DISINTEGRATING TAB (Q0162 PER 1MG) As Ordered; -TRIAMCINOLONE ACETONIDE SUSP 40 MG/ML VIAL (J3301) As Ordered; +methylPREDNISolone SUSP 40 MG/ML (DEPO-medrol) VIAL (J1030) As Ordered
== END ==
LOC: M PAIN 11:45
DX: M51.17 Intervertebral disc disorders with radiculopathy, lumbosacral region (principal); F32.9 Major depressive disorder, single episode, unspecified; I10 Essential (primary) hypertension; E78.5 Hyperlipidemia, unspecified; G47.00 Insomnia, unspecified; K58.9 Irritable bowel syndrome, unspecified; K21.9 Gastro-esophageal reflux disease without esophagitis; F17.210 Nicotine dependence, cigarettes, uncomplicated; Z79.899 Other long term (current) drug therapy; Z88.0 Allergy status to penicillin; Z88.1 Allergy status to other antibiotic agents
CPT/HCPCS: J1030

== ENCOUNTER → 2018-07-28 | Outpatient (CLI) | payer OTHER | LOC: M PAIN 14:15 | DX: Z53.8 Procedure and treatment not carried out for other reasons (principal) ==

== ENCOUNTER → 2018-08-27 | Outpatient (CLI) | payer OTHER | LOC: M PAIN 11:30 | DX: M96.1 Postlaminectomy syndrome, not elsewhere classified (principal); M70.61 Trochanteric bursitis, right hip; F32.9 Major depressive disorder, single episode, unspecified; I10 Essential (primary) hypertension; E78.5 Hyperlipidemia, unspecified; G47.00 Insomnia, unspecified; K58.9 Irritable bowel syndrome, unspecified; K21.9 Gastro-esophageal reflux disease without esophagitis; F17.210 Nicotine dependence, cigarettes, uncomplicated; Z79.899 Other long term (current) drug therapy; Z88.0 Allergy status to penicillin; Z88.1 Allergy status to other antibiotic agents; Z79.891 Long term (current) use of opiate analgesic | CPT/HCPCS: G0463 ==

== ENCOUNTER → 2018-09-30 | Outpatient (CLI) | payer OTHER ==
[~2018-09-30] MED LIST changes: +/ATOR40TA PO; +AMBI5TAB PO; +AMIT8CAP4 PO; +ATIV1TAB10 PO; +BACL10TA2 PO; +BENT10CA PO; +BUPIVACAINE HCL 0.25% 30 ML VIAL As Ordered ONE; +DICL100T PO; +FLUO20CA8 PO; +GABA-843 PO; +GABA-845 PO; +GABA300C2 PO; +GABA600T PO; -ISOVUE-M 300 61% 15ML VIAL (Q9967) As Ordered; +ISOVUE-M 300 61% 15ML VIAL (Q9967) As Ordered ONE; +LACT20EL PO; -LIDOCAINE 1% SDV INJ 30 ML VIAL As Ordered; +LIDOCAINE 1% SDV INJ 30 ML VIAL As Ordered ONE; +LINZ145C PO; +LIPI20TA PO; +LISI5TAB PO; +METH75TA PO; +MORP15TA2 PO; +NEXI40CA PO; +OMEP20CA3 PO; +OMEP40CA2 PO; -ONDANSETRON 4 MG ORAL DISINTEGRATING TAB (Q0162 PER 1MG) As Ordered; +OXYC-517 PO; +OXYC15TA76 PO; +PERC5TAB PO; +PHEN25IN3 PO; +REGL10TA6 PO; +REST15CA PO; +TIZA4CAP PO; +TRAM37.5 PO; +TRAZ50TA2 PO; +TRIAMCINOLONE ACETONIDE SUSP 40 MG/ML VIAL (J3301) As Ordered ONE; +VALI5TAB PO; +VICO5TAB16 PO; -diazePAM 5 MG TAB As Ordered; +diazePAM 5 MG TAB As Ordered ONE; -methylPREDNISolone SUSP 40 MG/ML (DEPO-medrol) VIAL (J1030) As Ordered; -oxyCODONE 5MG TAB As Ordered; +oxyCODONE 5MG TAB As Ordered ONE
--- NOTE | 2018-09-30 15:50 | REP ---
Right hip: Single view. History: Right greater trochanter femur injection. 9 seconds of fluoroscopy time was utilized. Findings: A single last image hold fluoroscopically obtained spot radiograph of the hip document needle position and contrast injection associated with injection procedure. Electronically Signed by Carlos Garcia MD 09/30/2018 05:04 P
--- NOTE | 2018-10-21 00:09 | ECWPNPC ---
PATIENT NAME: JOI MCCLAIN : 1965 GENDER: FEMALE VISIT DATE: 09/30/2018 DISCHARGE DATE: 09/30/18 1205 VISIT LOCKED DATE TIME: PHYSICIAN: STELLA ASHRAF MD RESOURCE: STELLA ASHRAF MD REASON FOR APPOINTMENT 1. RIGHT HIP BURSA INJECTION HISTORY OF PRESENT ILLNESS DEPRESSION SCREENING: PHQ-2 IN LAST TWO WEEKS HAVE YOU BEEN BOTHERED BY LITTLE INTEREST OR PLEASURE IN DOING THINGSNO FEELING DOWN, DEPRESSED, OR HOPELESSNO HISTORY OF PRESENT ILLNESS: PAIN THE PATIENT DESCRIBES THE PAIN... FALL RISK SCREENING: SCREENING :NO FALLS IN THE PAST YEAR CURRENT MEDICATIONS TAKING LINZESS 145MCG CAPSULE 1 CAPSULE ORALLY ONCE A DAY NEEDED, NOTES: 09/29/18 1300 TAKING OMEPRAZOLE 40MG CAPSULE DELAYED RELEASE TAKE ONE CAPSULE BY MOUTH DAILY, NOTES: 09/29/18 PM TAKING HYDROCHLOROTHIAZIDE 12.5MG TABLET 1 TABLET ORALLY ONCE A DAY, NOTES: 09/29/18 PM TAKING IMITREX 50 MG TABLET 1 TABLET NEEDED ONE TIME, MAY REPEAT IN 2 HOURS IF HEADACHE STILL PRESENT, MDD 2 ORALLY DIRECTED, NOTES: 09/28/18 PM TAKING CYMBALTA 60 MG CAPSULE DELAYED RELEASE PARTICLES 1 CAPSULE ORALLY ONCE A DAY, NOTES: 09/29/18 PM TAKING CYMBALTA 30 MG CAPSULE DELAYED RELEASE PARTICLES 1 CAPSULE ORALLY DAILY, NOTES: 09/29/18 AM TAKING ZOFRAN 4MG TABLET 2 TABLETS ORALLY BID PRN, NOTES: 09/29/18 PM TAKING ATORVASTATIN CALCIUM 10MG TABLET 1 TABLET ORALLY ONCE A DAY, NOTES: 09/29/18 PM TAKING ERGOCALCIFEROL 97725 UNIT CAPSULE 1 CAPSULE ORALLY ONCE A WEEK, NOTES: TAKES ON SUNDAYS TAKING CELECOXIB 200 MG CAPSULE 1 CAPSULE WITH FOOD ORALLY ONCE A DAY, NOTES: 09/29/18 AM TAKING GABAPENTIN 300 MG CAPSULE 1 ORALLY QID, NOTES: 09/29/18 2100 TAKING OXYCODONE HCL 15 MG TABLET 1 TABLET ORALLY EVERY 6 HRS PRN PAIN MDD=4, NOTES: 09/29/182099 TAKING BACLOFEN 20 MG TABLET 1 TABLET ORALLY 1/2 TAB AM AND PM AND WHOLE TAB AT BEDTIME, NOTES: 09/29/182099 NOT-TAKING ATIVAN 0.5 MG TABLET 1 TAB ORALLY HS PRN, MAY REPEAT X 1 ( MDD=2), NOTES: 07/13/18 NOT-TAKING LINZESS 145 MCG CAPSULE 1 CAPSULE ORALLY ONCE A DAY NOT-TAKING OMEPRAZOLE 40MG 40 MG CAPSULE 1 CAP(S) ORAL ONCE DAILY NOT-TAKING LIPITOR 40 MG TABLET 1 TABLET ORALLY ONCE A DAY MEDICATION LIST REVIEWED AND RECONCILED WITH THE PATIENT PAST MEDICAL HISTORY DEPRESSION HYPERTENSION HYPERLIPIDEMIA INSOMNIA IBS REFLUX CHRONIC BACK PAIN ALLERGIES PENICILLIN (FOR ALLERGIES USE ONLY): HIVES: ALLERGY ANCEF: HIVES: ALLERGY SURGICAL HISTORY BACK SURGERY 2008 GALL BLADDER 1989 HYSTERECTOMY 1993 FAMILY HISTORY FATHER: , DIAGNOSED WITH HEART DISEASE MOTHER: , DIAGNOSED WITH HEART DISEASE, STROKE, CANCER, OTHER MOTHER,AUNT,GRANDMOTHER ALL HAD BREAST CA. SOCIAL HISTORY GENERAL: TOBACCO USE ARE YOU A:CURRENT SMOKER ARE YOU INTERESTED IN QUITTING?NOT READY TO QUIT COUNSELED THE PATIENT ON SMOKING EFFECTS, EDUCATION [id number]/25/2018 HOW MANY CIGARETTES A DAY DO YOU SMOKE?6-10 HOW SOON AFTER YOU WAKE UP DO YOU SMOKE YOUR FIRST CIGARETTE?6-30 MIN HOW OFTEN DO YOU SMOKE CIGARETTES?EVERY DAY PATIENT COUNSELED ON THE DANGERS OF TOBACCO USE AND URGED TO QUIT:07/14/2018 ADDITIONAL FINDINGS: TOBACCO USER NONE VAPORNO E-CIGARETTENO BMI CARE GOAL FOLLOW-UP ABOVE NORMAL BMI FOLLOW-UPDIETARY MANAGEMENT EDUCATION, GUIDANCE, AND COUNSELING ALCOHOL SCREENING DID YOU HAVE A DRINK CONTAINING ALCOHOL IN THE PAST YEAR?NO POINTS0 INTERPRETATIONNEGATIVE RECREATIONAL DRUG USE DRUG USE?NO CAFFEINE CAFFEINE USE?YES COFFEE,DIET PEPSI HIV / HEP-C SCREENING HIV TEST OFFERED TO PATIENT:YES DATE OFFERED:12/19/2016 CONSENT ON FILE TEST ACCEPTED:NO HEP-C TEST OFFERED TO PATIENT:YES DATE OFFERED:12/19/2016 CONSENT ON FILE REASON:PATIENT DECLINED TEST ACCEPTED:NO REASON:PATIENT DECLINED ZOROASTRIAN [id number] JAINISM LANGUAGE UKRAINIAN. EDUCATION LEVEL OF EDUCATION:FINISHED HIGH SCHOOL 11TH GRADE LEARNING BARRIERS / SPECIAL NEEDS CHANGE FROM LAST VISIT?NO 05/20/2018 BARRIERS TO LEARNING?NO HEARING IMPAIRED?NO VISION IMPAIRED?YES COGNITIVELY IMPAIRED?NO :CORRECTIVE LENSES READING READINESS TO LEARN?YES LEARNING PREFERENCES?NO LEARNING CAPABILITIES PRESENT?YES EMOTIONAL BARRIERS?NO SPECIAL DEVICES?NO SUPERVISOR COREMAKER NEEDED?NO DOMESTIC VIOLENCE DO YOU FEEL SAFE IN YOUR ENVIRONMENT?YES DIET: REGULAR. MARITAL STATUS: . NEW PATIENT PAIN DIARY FROM 0-10, WHAT LEVEL IS YOUR PAIN TODAY?9 PAIN CLINIC PFS, CLERGY, PUBLIC HEALTH REFERRALS PFS REFERRAL NEEDED?NO CLERGY REFERRAL NEEDED?NO PUBLIC HEALTH REFERRAL NEEDED?NO HAS THE PATIENT BEEN EDUCATED REGARDING HIS/HER PLAN OF CARE?YES HAS THE PATIENT BEEN EDUCATED REGARDING PAIN, THE RISK FOR PAIN, THE IMPORTANCE OF EFFECTIVE PAIN MANAGEMENT, AND THE PAIN ASSESSMENT PROCESS?YES ADVANCE DIRECTIVE ADVANCE DIRECTIVE DISCUSSED WITH PATIENT:YES PT DECLINED INFORMATION ON HCP AT THIS TIME ASSISTANCE OFFERED, PT DECLINES AT THIS TIME. 09/30/18 THIS PATIENT LIVES AT HOME WITH HER AND GRAND-DAUGHTER, (WHOM SHE INTENDS TO ADOPT). SHE SLEEPS OKAY ONLY. SHE FRACTURED RIGHT ELBOW, RIGHT CHEEK FRACTURE, AND LEFT WRIST IN PAST. NO HISTORY OF AN EATING DISORDER. SHE DENIES HISTORY OF PHYSICAL/SEXUAL ABUSE. SHE WEARS SEAT BELTS. SHE IS CURRENT WITH IMMUNIZATIONS AND TETANUS. SHE IS UP TO DATE WITH DENTAL AND EYE EXAMINATIONS. SHE TAKES NO VITAMINS OR CALCIUM.03/17/18 1105 REVIEWED WITH PT. AD 08/27/18 1208 REVIEWED WITH PT BVREVIEWED WITH PT 09/30/18 1048 BV. HOSPITALIZATION/MAJOR DIAGNOSTIC PROCEDURE FOR SURGERIES REVIEW OF SYSTEMS REVIEWED BY: PROVIDER: . CONSTITUTIONAL: ANY CHANGE IN YOUR MEDICAL CONDITION? NO . CHILLS NO . FEVER NO . INFECTION: DO YOU HAVE NEW INFECTIONS? NO . DO YOU HAVE HISTORY OF MRSA? NO . MUSCULOSKELETAL: ANY NEW PATTERNS OF PAIN OR NUMBNESS? NO . GASTROENTEROLOGY: ANY NEW CHANGE IN BOWEL CONTROL? NO . GENITOURINARY: ANY NEW CHANGE IN BLADDER CONTROL? NO . IS THERE A CHANCE YOU COULD BE ? NO . HEMATOLOGY/LYMPH: DO YOU TAKE ANY BLOOD THINNERS? (FOR EXAMPLE- COUMADIN, PLAVIX, AGGRENOX, PLATEL, PRADAXA, OR XARELTO) NO . WHEN WAS YOUR LAST DOSE? DATE: TIME: . NEUROLOGY: HAVE YOU FALLEN IN THE PAST 6 MONTHS? NO . ANY NEW EXTREMITY NUMBNESS OR WEAKNESS? NO . CARDIOLOGY: DO YOU HAVE A PACEMAKER OR DEFIBRILLATOR? NO . RESPIRATORY: HAVE YOU BEEN SICK IN THE PAST WEEK? NO . FEVER NO . FLU LIKE SYMPTOMS? NO . COUGH NO . INTEGUMENTARY: DO YOU HAVE ANY RASHES OR OPEN SORES? NO . ALLERGIC/IMMUNO: ARE YOU ALLERGIC TO SHELLFISH OR IV DYE? NO . ANY NEW ALLERGIES? NO . PSYCHIATRIC: DO YOU HAVE THOUGHTS OF HURTING YOURSELF OR SOMEONE ELSE? NO . ARE YOU ABUSED, NEGLECTED, OR IN AN UNSAFE ENVIRONMENT? NO . ENDOCRINOLOGY: ARE YOU DIABETIC? NO . OTHER: DO YOU NEED ANY PRESCRIPTIONS? NO . IF YES, PLEASE LIST: ____ . ANY NEW PROBLEMS WITH YOUR MEDICATIONS? NO . WHEN DID YOU LAST EAT? LAST NIGHT . WHEN DID YOU LAST DRINK? 09/30/18 0600 . WHAT DID YOU LAST DRINK? DIET PEPSI . NAME OF PERSON DRIVING YOU HOME? SAMIA MCCLAIN . DO YOU HAVE ANY OTHER QUESTIONS OR CONCERNS NO . VITAL SIGNS WT 158.2 LBS, HT 63 IN, BMI 28.02 INDEX, BP 123/65 MM HG, HR 95 /MIN, RR 16 /MIN, TEMP 97.4 F, OXYGEN SAT % 96%, NA INITIALS SC 10:25, REVIEWED BY: BV. ASSESSMENTS TROCHANTERIC BURSITIS OF RIGHT HIP - M70.61 (PRIMARY) PAIN IN RIGHT HIP - M25.551 PROCEDURES PRE PROCEDURE DIAGNOSIS BURSITIS AT THE RIGHT GREATER TROCHANTER OF THE FEMUR POST PROCEDURE DIAGNOSIS BURSITIS AT THE RIGHT GREATER TROCHANTER OF THE FEMUR PROCEDURE INJECTION AT THE BURSA OF THE OF THE RIGHT GREATER TROCHANTER OF THE FEMUR UNDER FLUOROSCOPIC GUIDANCE SURGEON DR. STELLA ASHRAF JANITORIAL SUPERVISOR NONE ANESTHESIA LOCAL PRE PROCEDURE NOTE THE PATIENT HAS A HISTORY OF RIGHT HIP PAIN. I EVALUATED THE PATIENT AND REVIEWED THE CHART. WE BOTH AGREE ON INJECTING OVER THE BURSA OF THE RIGHT GREATER TROCHANTER OF THE FEMUR. I WENT THROUGH THE RISKS, ALTERNATIVES, AND BENEFITS ASSOCIATED WITH THIS PROCEDURE. THE PATIENT WOULD LIKE TO PROCEED AND GIVE CONSENT TO PERFORMED THE PROCEDURE. THE PATIENT DENIES UNEXPLAINABLE WEIGHT LOSS, FEVERS, CHILLS, OR CHANGES IN HIS URINARY OR BOWEL CONTROL DESCRIPTION OF PROCEDURE AFTER CONSENT WAS TAKEN, THE PATIENT WAS BROUGHT TO THE PROCEDURE ROOM AND PLACED IN THE LEFT LATERAL DECUBITUS POSITION. THE RIGHT HIP AREA WAS CLEANED WITH CHLORAPREP SOLUTION AND DRAPED ASEPTICALLY. THE PROCEDURE WAS DONE UNDER STERILE CONDITIONS. I CHECKED LATERALITY WITH THE PATIENT AND THE STAFF IN THE PROCEDURE ROOM AT THE MOMENT OF THE TIME OUT. UNDER FLUOROSCOPIC GUIDANCE, TARGET WAS SELECTED AT THE RIGHT GREATER TROCHANTER OF THE FEMUR. LIDOCAINE WAS USED TO NUMB THE SKIN AND THE SUBCUTANEOUS TISSUE BELOW IT. SPINAL NEEDLE, 22-GAUGE WAS ADVANCED UNDER FLUOROSCOPIC GUIDANCE AND FOLLOWING PATIENT FEEDBACK UNTIL THE TARGET WAS TOUCHED. POSITION OF THE NEEDLE WAS VERIFIED WITH AP AND LATERAL VIEWS. AFTER PROPER POSITION OF THE NEEDLE WAS ACHIEVED, ISOVUE M DYE, 30%, 0.25 ML WAS INJECTED SHOWING ADEQUATE SPREAD OF THE DYE. THEN A SOLUTION OF 20 ML OF BUPIVACAINE 0.25% AND KENALOG 40 MG WAS INJECTED. THERE WAS NO EVIDENCE OF BLOOD, PARESTHESIA, OR CEREBROSPINAL FLUID. THE PATIENT WAS SENT TO THE RECOVERY ROOM. THE PATIENT WAS MOVING THE EXTREMITIES AND DOING WELL. THERE WERE NO COMPLICATIONS DURING THE PROCEDURE. FLUOROSCOPY TIME WAS 9 SECONDS POST PROCEDURE NOTE I DISCUSSED ALTERNATIVES WITH THE PATIENT. WE WILL SEE THE PATIENT BACK IN SEVERAL WEEKS FOR REEVALUATION OF THE CASE. I AM LOOKING FOR LONG-LASTING PAIN RELIEF WITH THIS INTERVENTION. FURTHER RECOMMENDATIONS WILL BE DONE DEPENDING ON HOW THE PATIENT DOES. THERE WERE NO COMPLICATIONS. I, ALBERT QUINONES, DOCUMENTED THE ABOVE INFORMATION ACTING A SCRIBE FOR DR. ASHRAF. I HAVE REVIEWED THE ABOVE DOCUMENT, WRITTEN BY ALBERT QUINONES SCRIBE AND I VERIFY THAT IT IS [facility] DIAGNOSTIC IMAGING [facility] FLUORO GUIDANCE (PAIN)[id number] PROCEDURE CODES 6045F RADXPS IN END [id number] PXD [id number] DRAIN/INJ JOINT/BURSA W/O US, MODIFIERS: RT [id number] NEEDLE LOCALIZATION BY XRAY, MODIFIERS: 26 DISPOSITION & COMMUNICATION FOLLOW UP 3 WEEKS ELECTRONICALLY SIGNED BY STELLA ASHRAF MD, MD ON 10/20/2018 AT 03:24 PM EST DISCLAIMER : THIS IS A VISIT SUMMARY EXTRACTED FROM THE [employer] CHART. IT IS NOT A COPY OF THE [employer] PROGRESS NOTE. MTDD
== END ==
LOC: M PAIN 10:00
PROVIDERS: ATTEND Anesthesiology
DX: M70.61 Trochanteric bursitis, right hip (principal); M25.551 Pain in right hip; F32.9 Major depressive disorder, single episode, unspecified; I10 Essential (primary) hypertension; E78.5 Hyperlipidemia, unspecified; G47.00 Insomnia, unspecified; K58.9 Irritable bowel syndrome, unspecified; K21.9 Gastro-esophageal reflux disease without esophagitis; M54.9 Dorsalgia, unspecified; F17.210 Nicotine dependence, cigarettes, uncomplicated; Z79.891 Long term (current) use of opiate analgesic; Z79.899 Other long term (current) drug therapy; Z90.49 Acquired absence of other specified parts of digestive tract; Z88.0 Allergy status to penicillin; Z88.1 Allergy status to other antibiotic agents
CPT/HCPCS: 20610; 77002; J3301; Q9967

== ENCOUNTER → 2018-10-15 | Outpatient (CLI) | payer OTHER ==
[~2018-10-15] MED LIST changes: -BUPIVACAINE HCL 0.25% 30 ML VIAL As Ordered ONE; -GABA600T PO; +GABA600T4 PO; -ISOVUE-M 300 61% 15ML VIAL (Q9967) As Ordered ONE; -LIDOCAINE 1% SDV INJ 30 ML VIAL As Ordered ONE; -TRIAMCINOLONE ACETONIDE SUSP 40 MG/ML VIAL (J3301) As Ordered ONE; -diazePAM 5 MG TAB As Ordered ONE; -oxyCODONE 5MG TAB As Ordered ONE
--- NOTE | 2018-11-09 00:20 | ECWPNPC ---
PATIENT NAME: JOI MCCLAIN : 1965 GENDER: FEMALE VISIT DATE: 10/15/2018 DISCHARGE DATE: 10/15/18 1538 VISIT LOCKED DATE TIME: PHYSICIAN: ELHAM DUDLEY RESOURCE: ELHAM DUDLEY REASON FOR APPOINTMENT 1. POST PROC HISTORY OF PRESENT ILLNESS HISTORY OF PRESENT ILLNESS: HERE FOR F/U AND MANAGEMENT OF CHRONIC LOW BACK PAIN AND HIP PAIN.HAD RIGHT GREATER TROCHANTERIC BURSAL INJECTION ON 09/30/18.REPORTING IMPROVEMENT IN PAIN THAT CONTINUES TODAY.FINDS CURRENT CHRONIC PAIN MEDICATION ONLY MARGINALLY EFFECTIVE.HAS BEEN ON OXYCODONE FOR MANY MONTHS AND IT HAS SLOWLY BECOME INEFFECTIVE.DISCUSSED OPIOD TOLERANCE AND MEDICATION MANAGEMENT.DISCUSSED RADIOFREQUENCY.RATING PAIN VAS 9/10. PAIN THE PATIENT DESCRIBES THE PAIN... FALL RISK SCREENING: SCREENING :NO FALLS IN THE PAST YEAR CURRENT MEDICATIONS TAKING LINZESS 145MCG CAPSULE 1 CAPSULE ORALLY ONCE A DAY NEEDED TAKING OMEPRAZOLE 40MG CAPSULE DELAYED RELEASE TAKE ONE CAPSULE BY MOUTH DAILY TAKING HYDROCHLOROTHIAZIDE 12.5MG TABLET 1 TABLET ORALLY ONCE A DAY TAKING IMITREX 50 MG TABLET 1 TABLET NEEDED ONE TIME, MAY REPEAT IN 2 HOURS IF HEADACHE STILL PRESENT, MDD 2 ORALLY DIRECTED TAKING CYMBALTA 60 MG CAPSULE DELAYED RELEASE PARTICLES 1 CAPSULE ORALLY ONCE A DAY TAKING CYMBALTA 30 MG CAPSULE DELAYED RELEASE PARTICLES 1 CAPSULE ORALLY DAILY TAKING ZOFRAN 4MG TABLET 2 TABLETS ORALLY BID PRN TAKING ATORVASTATIN CALCIUM 10MG TABLET 1 TABLET ORALLY ONCE A DAY TAKING ERGOCALCIFEROL 97718 UNIT CAPSULE 1 CAPSULE ORALLY ONCE A WEEK TAKING CELECOXIB 200 MG CAPSULE 1 CAPSULE WITH FOOD ORALLY ONCE A DAY TAKING GABAPENTIN 300 MG CAPSULE 1 ORALLY QID TAKING OXYCODONE HCL 15 MG TABLET 1 TABLET ORALLY EVERY 6 HRS PRN PAIN MDD=4 TAKING BACLOFEN 20 MG TABLET 1 TABLET ORALLY 1/2 TAB AM AND PM AND WHOLE TAB AT BEDTIME DISCONTINUED ATIVAN 0.5 MG TABLET 1 TAB ORALLY HS PRN, MAY REPEAT X 1 ( MDD=2) DISCONTINUED LINZESS 145 MCG CAPSULE 1 CAPSULE ORALLY ONCE A DAY, NOTES: DUPLICATE DISCONTINUED OMEPRAZOLE 40MG 40 MG CAPSULE 1 CAP(S) ORAL ONCE DAILY, NOTES: DUPLICATE DISCONTINUED LIPITOR 40 MG TABLET 1 TABLET ORALLY ONCE A DAY MEDICATION LIST REVIEWED AND RECONCILED WITH THE PATIENT PAST MEDICAL HISTORY DEPRESSION HYPERTENSION HYPERLIPIDEMIA INSOMNIA IBS REFLUX CHRONIC BACK PAIN ALLERGIES PENICILLIN (FOR ALLERGIES USE ONLY): HIVES: ALLERGY ANCEF: HIVES: ALLERGY SURGICAL HISTORY BACK SURGERY 2008 GALL BLADDER 1988 HYSTERECTOMY 1993 FAMILY HISTORY FATHER: , DIAGNOSED WITH HEART DISEASE MOTHER: , DIAGNOSED WITH HEART DISEASE, STROKE, CANCER, OTHER MOTHER-ALZHEIMERMOTHER,AUNT,GRANDMOTHER ALL HAD BREAST CA. SOCIAL HISTORY GENERAL: TOBACCO USE ARE YOU A:CURRENT SMOKER ARE YOU INTERESTED IN QUITTING?NOT READY TO QUIT COUNSELED THE PATIENT ON SMOKING EFFECTS, EDUCATION [id number]/27/2018 HOW MANY CIGARETTES A DAY DO YOU SMOKE?6-10 HOW SOON AFTER YOU WAKE UP DO YOU SMOKE YOUR FIRST CIGARETTE?6-30 MIN HOW OFTEN DO YOU SMOKE CIGARETTES?EVERY DAY PATIENT COUNSELED ON THE DANGERS OF TOBACCO USE AND URGED TO QUIT:10/15/2018 ADDITIONAL FINDINGS: TOBACCO USER NONE VAPORNO E-CIGARETTENO BMI CARE GOAL FOLLOW-UP ABOVE NORMAL BMI FOLLOW-UPDIETARY MANAGEMENT EDUCATION, GUIDANCE, AND COUNSELING ALCOHOL SCREENING DID YOU HAVE A DRINK CONTAINING ALCOHOL IN THE PAST YEAR?NO POINTS0 INTERPRETATIONNEGATIVE RECREATIONAL DRUG USE DRUG USE?NO CAFFEINE CAFFEINE USE?YES COFFEE,DIET PEPSI HIV / HEP-C SCREENING HIV TEST OFFERED TO PATIENT:YES DATE OFFERED:12/19/2016 CONSENT ON FILE TEST ACCEPTED:NO HEP-C TEST OFFERED TO PATIENT:YES DATE OFFERED:12/19/2016 CONSENT ON FILE REASON:PATIENT DECLINED TEST ACCEPTED:NO REASON:PATIENT DECLINED BUDDHIST [id number] [place] LANGUAGE INDIAN. EDUCATION LEVEL OF EDUCATION:FINISHED HIGH SCHOOL 11TH GRADE LEARNING BARRIERS / SPECIAL NEEDS CHANGE FROM LAST VISIT?NO 05/20/2018 BARRIERS TO LEARNING?NO HEARING IMPAIRED?NO VISION IMPAIRED?YES :CORRECTIVE LENSES READING COGNITIVELY IMPAIRED?NO READINESS TO LEARN?YES LEARNING PREFERENCES?NO LEARNING CAPABILITIES PRESENT?YES EMOTIONAL BARRIERS?NO SPECIAL DEVICES?NO ADVERTISING ASSISTANT MANAGER NEEDED?NO DOMESTIC VIOLENCE DO YOU FEEL SAFE IN YOUR ENVIRONMENT?YES DIET: REGULAR. MARITAL STATUS: . NEW PATIENT PAIN DIARY FROM 0-10, WHAT LEVEL IS YOUR PAIN TODAY?9 PAIN CLINIC PFS, CLERGY, PUBLIC HEALTH REFERRALS PFS REFERRAL NEEDED?NO CLERGY REFERRAL NEEDED?NO PUBLIC HEALTH REFERRAL NEEDED?NO WAS THE PROVIDER NOTIFIED OF ANY PERTINENT INFO? N/A HAS THE PATIENT BEEN EDUCATED REGARDING HIS/HER PLAN OF CARE?YES HAS THE PATIENT BEEN EDUCATED REGARDING PAIN, THE RISK FOR PAIN, THE IMPORTANCE OF EFFECTIVE PAIN MANAGEMENT, AND THE PAIN ASSESSMENT PROCESS?YES ADVANCE DIRECTIVE ADVANCE DIRECTIVE DISCUSSED WITH PATIENT:YES 10/15/18 PT DOES NOT HAVE ANY ADVANCED DIRECTIVES AND SHE DECLINED INFORMATION ON HCP AT THIS TIME. THIS PATIENT LIVES AT HOME WITH HER AND GRAND-DAUGHTER, (WHOM SHE INTENDS TO ADOPT). SHE SLEEPS OKAY ONLY. SHE FRACTURED RIGHT ELBOW, RIGHT CHEEK FRACTURE, AND LEFT WRIST IN PAST. NO HISTORY OF AN EATING DISORDER. SHE DENIES HISTORY OF PHYSICAL/SEXUAL ABUSE. SHE WEARS SEAT BELTS. SHE IS CURRENT WITH IMMUNIZATIONS AND TETANUS. SHE IS UP TO DATE WITH DENTAL AND EYE EXAMINATIONS. SHE TAKES NO VITAMINS OR CALCIUM.03/17/18 1105 REVIEWED WITH PT. AD 08/27/18 1208 REVIEWED WITH PT. BV10/15/18 REVIEWED WITH PT. ADREVIEWED WITH PT 09/30/18 1048 BV. HOSPITALIZATION/MAJOR DIAGNOSTIC PROCEDURE FOR SURGERIES CHILD X 2 REVIEW OF SYSTEMS REVIEWED BY: PROVIDER: ELHAM JEREZ . CONSTITUTIONAL: ANY CHANGE IN YOUR MEDICAL CONDITION? NO . CHILLS NO . FEVER NO . INFECTION: DO YOU HAVE NEW INFECTIONS? NO . DO YOU HAVE HISTORY OF MRSA? NO . MUSCULOSKELETAL: ANY NEW PATTERNS OF PAIN OR NUMBNESS? NO . GASTROENTEROLOGY: ANY NEW CHANGE IN BOWEL CONTROL? NO . GENITOURINARY: ANY NEW CHANGE IN BLADDER CONTROL? NO . IS THERE A CHANCE YOU COULD BE ? NO . HEMATOLOGY/LYMPH: DO YOU TAKE ANY BLOOD THINNERS? (FOR EXAMPLE- COUMADIN, PLAVIX, AGGRENOX, PLATEL, PRADAXA, OR XARELTO) NO . WHEN WAS YOUR LAST DOSE? DATE: TIME: . NEUROLOGY: HAVE YOU FALLEN IN THE PAST 6 MONTHS? NO . ANY NEW EXTREMITY NUMBNESS OR WEAKNESS? NO . CARDIOLOGY: DO YOU HAVE A PACEMAKER OR DEFIBRILLATOR? NO . RESPIRATORY: HAVE YOU BEEN SICK IN THE PAST WEEK? NO . FEVER NO . FLU LIKE SYMPTOMS? NO . COUGH NO . INTEGUMENTARY: DO YOU HAVE ANY RASHES OR OPEN SORES? NO . ALLERGIC/IMMUNO: ARE YOU ALLERGIC TO SHELLFISH OR IV DYE? NO . ANY NEW ALLERGIES? NO . PSYCHIATRIC: DO YOU HAVE THOUGHTS OF HURTING YOURSELF OR SOMEONE ELSE? NO . ARE YOU ABUSED, NEGLECTED, OR IN AN UNSAFE ENVIRONMENT? NO . ENDOCRINOLOGY: ARE YOU DIABETIC? NO . OTHER: DO YOU NEED ANY PRESCRIPTIONS? YES . IF YES, PLEASE LIST: CELECOXIB,? HYDROMORPHONE . ANY NEW PROBLEMS WITH YOUR MEDICATIONS? NO . WHEN DID YOU LAST EAT? ____ . WHEN DID YOU LAST DRINK? ____ . WHAT DID YOU LAST DRINK? ____ . NAME OF PERSON DRIVING YOU HOME? ____ . DO YOU HAVE ANY OTHER QUESTIONS OR CONCERNS YES THE LAST VISIT WITH JERALD SHE DISCONTINUED HYDROMORPHONE AND STARTED OXYCODONE. THE OXY IS VERY UPSETTING TO HER STOMACH AND ISN'T EFFECTIVE THE HYDROMORPHONE. ? ON RESTARTING THE HYDROMORPHONE. . VITAL SIGNS WT 159.2 LBS, HT 63 IN, BMI 28.20 INDEX, BP 145/88 MM HG, HR 92 /MIN, RR 16 /MIN, TEMP 97.1 F, OXYGEN SAT % 98%, SAFE IN ENV? (Y/N) Y, NA INITIALS SC 14:13, REVIEWED BY: [place]. EXAMINATION GENERAL EXAMINATION: GENERAL APPEARANCE:AWAKE,ALERT ,PLEAASANT . PSYCHAFFECT NORMAL . LUNGS:LUNG ARAIZA ARE CLEAR TO AUSCULTATION BILATERALLY. GOOD MOVEMENT OF AIR . HEART:S1, S2 IN A REGULAR RATE AND RHYTHM. NO SIGNIFICANT MURMURS, RUBS OR GALLOPS NOTED . ASSESSMENTS LUMBAR POST-LAMINECTOMY SYNDROME - M96.1 (PRIMARY) CHRONIC PRESCRIPTION OPIATE USE - Z79.891 TREATMENT LUMBAR POST-LAMINECTOMY SYNDROME CONTINUE CYMBALTA CAPSULE DELAYED RELEASE PARTICLES, 60 MG, 1 CAPSULE, ORALLY, ONCE A DAY CONTINUE CYMBALTA CAPSULE DELAYED RELEASE PARTICLES, 30 MG, 1 CAPSULE, ORALLY, DAILY REFILL CELECOXIB CAPSULE, 200 MG, 1 CAPSULE WITH FOOD, ORALLY, ONCE A DAY, 30 DAY(S), 30 CAPSULE, REFILLS 3 CONTINUE GABAPENTIN CAPSULE, 300 MG, 1, ORALLY, QID STOP OXYCODONE HCL TABLET, 15 MG, 1 TABLET, ORALLY, EVERY 6 HRS PRN PAIN MDD=4 START MORPHINE SULFATE TABLET, 15 MG, 1 TABLET NEEDED, ORALLY, Q6H PRN MDD4, 30 DAY(S), 120, REFILLS 0 NOTES: ISTOP REGISTRY REVIEWED AND DEMONSTRATES COMPLLIANCE. BRINGS IN MEDICATIONS WHICH IS APPROPRIATE FOR WHAT WAS DISPENSED. RECENT URINE TOXICOLOGY REVIEWED. NO UNAUTHORIZED MEDICATIONS. NO ILLICIT SUBSTANCES AND PRESCRIBED MEDICATIONS WERE PRESENT. , RISKS AND BENEFITS OF NARCOTIC/OPIOD MEDICATIONS WERE REVIEWED WITH PATIENT - THIS INCLUDES BUT IS NOT LIMITED TO RISK OF DEPENDANCE/DEVELOPMENT OF ADDICTION, MOOD DISTURBANCE AND DEPRESSION, OSTEOPOROSIS, HORMONAL AND LABIDAL CHANGES, RESPIRATORY DEPRESSION AND . PATIENT IS ADVISED NOT TO DRIVE OR DRINK ALCOHOL WHILE ON THESE MEDICATIONSGondola RADIOFREQUENCY DENERVATION LUMBAR FACETS. PROCEDURE CODES FA211 ESTABILISHED PATIENT [facility] FACILITY CHARGE DISPOSITION & COMMUNICATION FOLLOW UP 6 WEEKS ELECTRONICALLY SIGNED BY MERI HARRY ON 11/08/2018 AT 05:20 PM EST DISCLAIMER : THIS IS A VISIT SUMMARY EXTRACTED FROM THE [employer] CHART. IT IS NOT A COPY OF THE [employer] PROGRESS NOTE. LAURA
== END ==
LOC: M PAIN 14:00
PROVIDERS: ATTEND Nurse Practitioner Family
DX: M96.1 Postlaminectomy syndrome, not elsewhere classified (principal); I10 Essential (primary) hypertension; E78.5 Hyperlipidemia, unspecified; K21.9 Gastro-esophageal reflux disease without esophagitis; G47.00 Insomnia, unspecified; F32.9 Major depressive disorder, single episode, unspecified; F17.210 Nicotine dependence, cigarettes, uncomplicated; Z79.899 Other long term (current) drug therapy; Z88.0 Allergy status to penicillin; Z88.8 Allergy status to other drugs, medicaments and biological substances

== ENCOUNTER → 2019-02-18 | Outpatient (CLI) | payer OTHER ==
[~2019-02-18] MED LIST changes: -/ATOR40TA PO; +LACT15SO PO; -LACT20EL PO; +LIPI1TAB2 PO
--- NOTE | 2019-03-16 00:30 | ECWPNPC ---
PATIENT NAME: JOI MCCLAIN : 1965 GENDER: FEMALE VISIT DATE: 02/18/2019 DISCHARGE DATE: 02/18/19 1522 VISIT LOCKED DATE TIME: PHYSICIAN: ELHAM DUDLEY RESOURCE: ELHAM DUDLEY REASON FOR APPOINTMENT 1. BACK/HIP HISTORY OF PRESENT ILLNESS HISTORY OF PRESENT ILLNESS: HERE FOR F/U OF CHRONICLOW BACK PAIN AND BILAT. HIP AND LEG PAIN R>L.HAVING AN INCREASE IN PAIN OVER THE PAST FEW MONTHS.APPEARS UNCOMFORTABLE SITTING IN EXAM ROOM.REVIEWED MRI AND DISCUSSED TREATMENT AND MEDICATION OPTIONS.RATING PAIN VAS 9/10. PAIN THE PATIENT DESCRIBES THE PAIN... FALL RISK SCREENING: SCREENING :NO FALLS REPORTED IN THE LAST YEAR CURRENT MEDICATIONS TAKING LINZESS 145MCG CAPSULE 1 CAPSULE ORALLY ONCE A DAY NEEDED TAKING OMEPRAZOLE 40MG CAPSULE DELAYED RELEASE TAKE ONE CAPSULE BY MOUTH DAILY TAKING HYDROCHLOROTHIAZIDE 12.5MG TABLET 1 TABLET ORALLY ONCE A DAY TAKING IMITREX 50 MG TABLET 1 TABLET NEEDED ONE TIME, MAY REPEAT IN 2 HOURS IF HEADACHE STILL PRESENT, MDD 2 ORALLY DIRECTED TAKING ZOFRAN 4MG TABLET 2 TABLETS ORALLY BID PRN TAKING ATORVASTATIN CALCIUM 10MG TABLET 1 TABLET ORALLY ONCE A DAY TAKING ERGOCALCIFEROL 09565 UNIT CAPSULE 1 CAPSULE ORALLY ONCE A WEEK TAKING CYMBALTA 60 MG CAPSULE DELAYED RELEASE PARTICLES 1 CAPSULE ORALLY ONCE A DAY TAKING CYMBALTA 30 MG CAPSULE DELAYED RELEASE PARTICLES 1 CAPSULE ORALLY DAILY TAKING CELECOXIB 200 MG CAPSULE 1 CAPSULE WITH FOOD ORALLY ONCE A DAY TAKING GABAPENTIN 300 MG CAPSULE 1 ORALLY QID TAKING BACLOFEN 20 MG TABLET 1 TABLET ORALLY 1/2 TAB AM AND PM AND WHOLE TAB AT BEDTIME TAKING MORPHINE SULFATE 15 MG TABLET 1 TAB ORALLY Q6H PRN MDD4 TAKING CLONIDINE HCL 0.1 MG TABLET 1 TABLET AT BEDTIME ORALLY ONCE A DAY MEDICATION LIST REVIEWED AND RECONCILED WITH THE PATIENT PAST MEDICAL HISTORY DEPRESSION HYPERTENSION HYPERLIPIDEMIA INSOMNIA IBS REFLUX CHRONIC BACK PAIN ALLERGIES PENICILLIN (FOR ALLERGIES USE ONLY): HIVES - ALLERGY ANCEF: HIVES - ALLERGY SURGICAL HISTORY BACK SURGERY 2008 GALL BLADDER 1988 HYSTERECTOMY 1993 FAMILY HISTORY FATHER: , DIAGNOSED WITH HEART DISEASE MOTHER: , STROKE, CANCER, OTHER, HEART DISEASE MOTHER-ALZHEIMER\NMOTHER,AUNT,GRANDMOTHER ALL HAD BREAST CA. SOCIAL HISTORY GENERAL: TOBACCO USE ARE YOU A:CURRENT SMOKER ARE YOU INTERESTED IN QUITTING?NOT READY TO QUIT COUNSELED THE PATIENT ON SMOKING EFFECTS, EDUCATION [id number]/27/2018 HOW MANY CIGARETTES A DAY DO YOU SMOKE?6-10 HOW SOON AFTER YOU WAKE UP DO YOU SMOKE YOUR FIRST CIGARETTE?6-30 MIN HOW OFTEN DO YOU SMOKE CIGARETTES?EVERY DAY PATIENT COUNSELED ON THE DANGERS OF TOBACCO USE AND URGED TO QUIT:02/18/2019 ADDITIONAL FINDINGS: TOBACCO USER NONE VAPORNO E-CIGARETTENO HIV / HEP-C SCREENING HIV TEST OFFERED TO PATIENT:YES DATE OFFERED:12/19/2016 CONSENT ON FILE TEST ACCEPTED:NO HEP-C TEST OFFERED TO PATIENT:YES DATE OFFERED:12/19/2016 CONSENT ON FILE REASON:PATIENT DECLINED TEST ACCEPTED:NO REASON:PATIENT DECLINED EDUCATION LEVEL OF EDUCATION:FINISHED HIGH SCHOOL 11TH GRADE DIET: REGULAR. LANGUAGE [id number]. DOMESTIC VIOLENCE DO YOU FEEL SAFE IN YOUR ENVIRONMENT?YES NEW PATIENT PAIN DIARY FROM 0-10, WHAT LEVEL IS YOUR PAIN TODAY?9 BMI CARE GOAL FOLLOW-UP ABOVE NORMAL BMI FOLLOW-UPDIETARY MANAGEMENT EDUCATION, GUIDANCE, AND COUNSELING RECREATIONAL DRUG USE DRUG USE?NO LEARNING BARRIERS / SPECIAL NEEDS CHANGE FROM LAST VISIT?NO 05/20/2018 BARRIERS TO LEARNING?NO HEARING IMPAIRED?NO VISION IMPAIRED?YES COGNITIVELY IMPAIRED?NO :CORRECTIVE LENSES READING READINESS TO LEARN?YES LEARNING PREFERENCES?NO LEARNING CAPABILITIES PRESENT?YES EMOTIONAL BARRIERS?NO SPECIAL DEVICES?NO DIRECTOR DIGITAL CATALOGUE NEEDED?NO PAIN CLINIC PFS, CLERGY, PUBLIC HEALTH REFERRALS PFS REFERRAL NEEDED?NO CLERGY REFERRAL NEEDED?NO PUBLIC HEALTH REFERRAL NEEDED?NO WAS THE PROVIDER NOTIFIED OF ANY PERTINENT INFO?YES N/A HAS THE PATIENT BEEN EDUCATED REGARDING HIS/HER PLAN OF CARE?YES HAS THE PATIENT BEEN EDUCATED REGARDING PAIN, THE RISK FOR PAIN, THE IMPORTANCE OF EFFECTIVE PAIN MANAGEMENT, AND THE PAIN ASSESSMENT PROCESS?YES LATEX QUESTIONNAIRE LATEX ALLERGY : HAVE YOU EVER DEVELOPED ANY TYPE OF REACTION AFTER HANDLING LATEX PRODUCTS SUCH RUBBER GLOVES, CONDOMS, DIAPHRAGMS, BALLOONS, SOCKS, OR UNDERWEAR?NO LATEX ALLERGY : HAVE YOU EVER DEVELOPED ANY TYPE OF REACTION DURING OR AFTER DENTAL APPOINTMENT, VAGINAL/RECTAL EXAMINATION, SURGICAL PROCEDURE, OR ANY OTHER EXPOSURE?NO LATEX RISK : HAVE YOU EVER HAD ANY DIFFICULTY BREATHING OR HIVES AFTER EATING OR HANDLING ANY FRUITS, OR VEGETABLES; SUCH KIWI, BANANAS, STONE FRUITS, OR CHESTNUTSNO LATEX RISK : DO YOU HAVE A PREVIOUS PERSONAL HISTORY OF MORE THAN NINE SURGERIES, SPINA BIFIDA, OR REPEATED CATHERTIZATIONS? NO LATEX RISK : ARE YOU FREQUENTLY EXPOSED TO LATEX PRODUCTS IN YOUR OCCUPATION?NO DATE ASKED : 02/18/2019 CAFFEINE CAFFEINE USE?YES COFFEE,DIET PEPSI ADVANCE DIRECTIVE ADVANCE DIRECTIVE DISCUSSED WITH PATIENT:YES PT DOES NOT HAVE ANY ADVANCED DIRECTIVES AND SHE DECLINED INFORMATION ON HCP AT THIS TIME. ISLAM [id number] MOSQUE MARITAL STATUS: . ALCOHOL SCREENING DID YOU HAVE A DRINK CONTAINING ALCOHOL IN THE PAST YEAR?NO POINTS0 INTERPRETATIONNEGATIVE THIS PATIENT LIVES AT HOME WITH HER AND GRAND-DAUGHTER, (WHOM SHE INTENDS TO ADOPT). SHE SLEEPS OKAY ONLY. SHE FRACTURED RIGHT ELBOW, RIGHT CHEEK FRACTURE, AND LEFT WRIST IN PAST. NO HISTORY OF AN EATING DISORDER. SHE DENIES HISTORY OF PHYSICAL/SEXUAL ABUSE. SHE WEARS SEAT BELTS. SHE IS CURRENT WITH IMMUNIZATIONS AND TETANUS. SHE IS UP TO DATE WITH DENTAL AND EYE EXAMINATIONS. SHE TAKES NO VITAMINS OR CALCIUM.03/17/18 1105 REVIEWED WITH PT. AD 08/27/18 1208 REVIEWED WITH PT. BV10/15/18 REVIEWED WITH PT. ADREVIEWED WITH PT 09/30/18 1048 BV. HOSPITALIZATION/MAJOR DIAGNOSTIC PROCEDURE FOR SURGERIES CHILD X 2 REVIEW OF SYSTEMS REVIEWED BY: PROVIDER: ELHAM JEREZ . CONSTITUTIONAL: ANY CHANGE IN YOUR MEDICAL CONDITION? NO . CHILLS NO . FEVER NO . INFECTION: DO YOU HAVE NEW INFECTIONS? NO . DO YOU HAVE HISTORY OF MRSA? NO . MUSCULOSKELETAL: ANY NEW PATTERNS OF PAIN OR NUMBNESS? YES, INCREASED PAIN . GASTROENTEROLOGY: ANY NEW CHANGE IN BOWEL CONTROL? NO . GENITOURINARY: ANY NEW CHANGE IN BLADDER CONTROL? NO . IS THERE A CHANCE YOU COULD BE ? NO . HEMATOLOGY/LYMPH: DO YOU TAKE ANY BLOOD THINNERS? (FOR EXAMPLE- COUMADIN, PLAVIX, AGGRENOX, PLATEL, PRADAXA, OR XARELTO) NO . WHEN WAS YOUR LAST DOSE? DATE: TIME: . NEUROLOGY: HAVE YOU FALLEN IN THE PAST 12 MONTHS? NO . ANY NEW EXTREMITY NUMBNESS OR WEAKNESS? NO . CARDIOLOGY: DO YOU HAVE A PACEMAKER OR DEFIBRILLATOR? NO . RESPIRATORY: HAVE YOU BEEN SICK IN THE PAST WEEK? NO . FEVER NO . FLU LIKE SYMPTOMS? NO . COUGH NO . INTEGUMENTARY: DO YOU HAVE ANY RASHES OR OPEN SORES? NO . ALLERGIC/IMMUNO: ARE YOU ALLERGIC TO IV DYE? NO . ANY NEW ALLERGIES? NO . PSYCHIATRIC: DO YOU HAVE THOUGHTS OF HURTING YOURSELF OR SOMEONE ELSE? NO . ARE YOU ABUSED, NEGLECTED, OR IN AN UNSAFE ENVIRONMENT? NO . ENDOCRINOLOGY: ARE YOU DIABETIC? NO . OTHER: DO YOU NEED ANY PRESCRIPTIONS? YES, GABAPENTIN, MORPHINE SULFATE . IF YES, PLEASE LIST: ____ . ANY NEW PROBLEMS WITH YOUR MEDICATIONS? NO . WHEN DID YOU LAST EAT? ____ . WHEN DID YOU LAST DRINK? ____ . WHAT DID YOU LAST DRINK? ____ . NAME OF PERSON DRIVING YOU HOME? ____ . DO YOU HAVE ANY OTHER QUESTIONS OR CONCERNS YES, PT STATES THAT SHE IS HAVING INCREASED HIP PAIN AND IS INTERESTED IN INJECTION. PT CONTINUING TO HAVE MUSCLE SPASMS . VITAL SIGNS WT 151.0 LBS, HT 63 IN, BMI 26.75 INDEX, BP 128/69 MM HG, HR 114 /MIN, RR 18 /MIN, TEMP 97.2 F, OXYGEN SAT % 97%, SAFE IN ENV? (Y/N) Y, NA INITIALS SC 14:20, REVIEWED BY: CHARISSE. EXAMINATION GENERAL EXAMINATION: GENERAL APPEARANCE: ALERT,NO DISTRESS . PSYCH AFFECT NORMAL . LUNGS: LUNG SOUNDS ARE CLEAR . HEART: HEART RATE REGULAR . MUSCULOSKELETAL: MST 5/5 BILAT. LOWER EXTREMITIES . LUMBAR SACRAL SPINE TENDERNESS BILAT. SIJ . DIAGNOSTIC TESTS REVIEWEDMRI L/S SINE-07/11/17. ASSESSMENTS BILATERAL SACROILIITIS - M46.1 (PRIMARY) TREATMENT BILATERAL SACROILIITIS REFILL BACLOFEN TABLET, 20 MG, 1 TABLET, ORALLY, 1 Q6H QID, 30 DAY(S), 120, REFILLS 2 REFILL GABAPENTIN CAPSULE, 300 MG, 1, ORALLY, QID, 30 DAY(S), 120, REFILLS 2 CONTINUE MORPHINE SULFATE TABLET, 15 MG, 1 TAB, ORALLY, Q6H PRN MDD4 [facility] CT LS SPINE W/O FOLL BY [id number],MACKENZIE 03/01/2019 2:59:40 PM > JOSE G CONTRERAS 03/01/2019 2:58:38 PM > APPROVED, OKAY TO BOOK AT [facility] NOTES: BILAT. SIJ, ISTOP REGISTRY REVIEWED AND DEMONSTRATES COMPLLIANCE. (REF #[id number] ) BRINGS IN MEDICATIONS WHICH IS APPROPRIATE FOR WHAT WAS DISPENSED. RECENT URINE TOXICOLOGY REVIEWED. NO UNAUTHORIZED MEDICATIONS. NO ILLICIT SUBSTANCES AND PRESCRIBED MEDICATIONS WERE PRESENT. URINE TOX TODAY, RISKS AND BENEFITS OF NARCOTIC/OPIOD MEDICATIONS WERE REVIEWED WITH PATIENT - THIS INCLUDES BUT IS NOT LIMITED TO RISK OF DEPENDANCE/DEVELOPMENT OF ADDICTION, MOOD DISTURBANCE AND DEPRESSION, OSTEOPOROSIS, HORMONAL AND LABIDAL CHANGES, RESPIRATORY DEPRESSION AND . PATIENT IS ADVISED NOT TO DRIVE OR DRINK ALCOHOL WHILE ON THESE MEDICATIONS. PROCEDURE CODES FA211 ESTABILISHED PATIENT [facility] CHARGE DISPOSITION & COMMUNICATION FOLLOW UP POST (REASON: BILAT. SIJ) ELECTRONICALLY SIGNED BY MERI HARRY ON 03/15/2019 AT 02:01 PM EDT DISCLAIMER : THIS IS A VISIT SUMMARY EXTRACTED FROM THE [employer] CHART. IT IS NOT A COPY OF THE [employer] PROGRESS NOTE. LAURA
== END ==
LOC: M PAIN 13:45
PROVIDERS: ATTEND Nurse Practitioner Family
DX: M46.1 Sacroiliitis, not elsewhere classified (principal); G89.29 Other chronic pain; Z86.59 Personal history of other mental and behavioral disorders; I10 Essential (primary) hypertension; E78.5 Hyperlipidemia, unspecified; G47.00 Insomnia, unspecified; K21.9 Gastro-esophageal reflux disease without esophagitis; F17.210 Nicotine dependence, cigarettes, uncomplicated; Z88.0 Allergy status to penicillin; Z88.1 Allergy status to other antibiotic agents; Z79.891 Long term (current) use of opiate analgesic; Z79.899 Other long term (current) drug therapy

== ENCOUNTER → 2019-03-30 | Outpatient (CLI) | payer OTHER ==
[~2019-03-30] MED LIST changes: +BUPIVACAINE HCL 0.25% 30 ML VIAL As Ordered ONE; +ISOVUE-M 300 61% 15ML VIAL (Q9967) As Ordered ONE; +LIDOCAINE 1% SDV INJ 30 ML VIAL As Ordered ONE; +TRIAMCINOLONE ACETONIDE SUSP 40 MG/ML VIAL (J3301) As Ordered ONE; +diazePAM 5 MG TAB As Ordered ONE; +oxyCODONE 5MG TAB As Ordered ONE
--- NOTE | 2019-03-30 13:42 | REP ---
SI JOINT SERIES: Bilateral limited study four views. HISTORY: Bilateral SI joint injection for pain. 14 seconds of fluoroscopy time is reported. FINDINGS: A sequence of four last image hold fluoroscopically obtained spot radiographs of the SI joints document various needle positions and contrast injections associated with injection procedure. Electronically Signed by Carlos Garcia MD 03/30/2019 09:08 P
--- NOTE | 2019-04-10 23:05 | ECWPNPC ---
PATIENT NAME: JOI MCCLAIN : 1965 GENDER: FEMALE VISIT DATE: 03/30/2019 DISCHARGE DATE: 03/30/19 1316 VISIT LOCKED DATE TIME: PHYSICIAN: STELLA ASHRAF MD RESOURCE: STELLA ASHRAF MD REASON FOR APPOINTMENT 1. BILKYREE CHOI HISTORY OF PRESENT ILLNESS HISTORY OF PRESENT ILLNESS: PAIN THE PATIENT DESCRIBES THE PAIN... FALL RISK SCREENING: SCREENING :NO FALLS REPORTED IN THE LAST YEAR CURRENT MEDICATIONS TAKING LINZESS 145MCG CAPSULE 1 CAPSULE ORALLY ONCE A DAY NEEDED, NOTES: NEEDED TAKING OMEPRAZOLE 40MG CAPSULE DELAYED RELEASE TAKE ONE CAPSULE BY MOUTH DAILY, NOTES: 03-29-192099 TAKING HYDROCHLOROTHIAZIDE 12.5MG TABLET 1 TABLET ORALLY ONCE A DAY TAKING IMITREX 50 MG TABLET 1 TABLET NEEDED ONE TIME, MAY REPEAT IN 2 HOURS IF HEADACHE STILL PRESENT, MDD 2 ORALLY DIRECTED, NOTES: NOT LATELY TAKING ZOFRAN 4MG TABLET 2 TABLETS ORALLY BID PRN, NOTES: NOT LATELY TAKING ATORVASTATIN CALCIUM 10MG TABLET 1 TABLET ORALLY ONCE A DAY, NOTES: 03-29-192099 TAKING ERGOCALCIFEROL 75315 UNIT CAPSULE 1 CAPSULE ORALLY ONCE A WEEK, NOTES: FRIDAY EVENING TAKING CYMBALTA 60 MG CAPSULE DELAYED RELEASE PARTICLES 1 CAPSULE ORALLY ONCE A DAY, NOTES: 03-29-192099 TAKING CYMBALTA 30 MG CAPSULE DELAYED RELEASE PARTICLES 1 CAPSULE ORALLY DAILY, NOTES: 03-29-19 TAKING GABAPENTIN 300 MG CAPSULE 1 ORALLY QID, NOTES: 03-29-192099 TAKING BACLOFEN 20 MG TABLET 1 TABLET ORALLY 1 Q6H QID, NOTES: 03-29-192099 TAKING CELECOXIB 200 MG CAPSULE 1 CAPSULE WITH FOOD ORALLY ONCE A DAY, NOTES: 03-30-19 0700 TAKING MORPHINE SULFATE 15 MG TABLET 1 TAB ORALLY Q6H PRN MDD4, NOTES: 03-29-19 0530 NOT-TAKING CLONIDINE HCL 0.1 MG TABLET 1 TABLET AT BEDTIME ORALLY ONCE A DAY MEDICATION LIST REVIEWED AND RECONCILED WITH THE PATIENT PAST MEDICAL HISTORY DEPRESSION HYPERTENSION HYPERLIPIDEMIA INSOMNIA IBS REFLUX CHRONIC BACK PAIN ALLERGIES PENICILLIN (FOR ALLERGIES USE ONLY): HIVES - ALLERGY ANCEF: HIVES - ALLERGY SURGICAL HISTORY BACK SURGERY 2008 GALL BLADDER 1988 HYSTERECTOMY 1993 FAMILY HISTORY FATHER: , DIAGNOSED WITH HEART DISEASE MOTHER: , OTHER, HEART DISEASE, STROKE, CANCER MOTHER-ALZHEIMER\NMOTHER,AUNT,GRANDMOTHER ALL HAD BREAST CA. SOCIAL HISTORY GENERAL: TOBACCO USE ARE YOU A:CURRENT SMOKER ARE YOU INTERESTED IN QUITTING?NOT READY TO QUIT COUNSELED THE PATIENT ON SMOKING EFFECTS, EDUCATION [id number]/27/2018 HOW MANY CIGARETTES A DAY DO YOU SMOKE?6-10 HOW SOON AFTER YOU WAKE UP DO YOU SMOKE YOUR FIRST CIGARETTE?6-30 MIN HOW OFTEN DO YOU SMOKE CIGARETTES?EVERY DAY PATIENT COUNSELED ON THE DANGERS OF TOBACCO USE AND URGED TO QUIT:02/18/2019 ADDITIONAL FINDINGS: TOBACCO USER NONE SMOKING CESSATION INFORMATION GIVEN03/30/2019 VAPORNO E-CIGARETTENO HIV / HEP-C SCREENING HIV TEST OFFERED TO PATIENT:YES DATE OFFERED:12/19/2016 CONSENT ON FILE TEST ACCEPTED:NO HEP-C TEST OFFERED TO PATIENT:YES DATE OFFERED:12/19/2016 CONSENT ON FILE REASON:PATIENT DECLINED TEST ACCEPTED:NO REASON:PATIENT DECLINED EDUCATION LEVEL OF EDUCATION:FINISHED HIGH SCHOOL 11TH GRADE DIET: REGULAR. LANGUAGE INDIAN. DOMESTIC VIOLENCE DO YOU FEEL SAFE IN YOUR ENVIRONMENT?YES NEW PATIENT PAIN DIARY FROM 0-10, WHAT LEVEL IS YOUR PAIN TODAY?9 BMI CARE GOAL FOLLOW-UP ABOVE NORMAL BMI FOLLOW-UPDIETARY MANAGEMENT EDUCATION, GUIDANCE, AND COUNSELING RECREATIONAL DRUG USE DRUG USE?NO LEARNING BARRIERS / SPECIAL NEEDS CHANGE FROM LAST VISIT?NO 05/20/2018 BARRIERS TO LEARNING?NO HEARING IMPAIRED?NO VISION IMPAIRED?YES COGNITIVELY IMPAIRED?NO :CORRECTIVE LENSES READING READINESS TO LEARN?YES LEARNING PREFERENCES?NO LEARNING CAPABILITIES PRESENT?YES EMOTIONAL BARRIERS?NO SPECIAL DEVICES?NO STATION CHIEF NEEDED?NO PAIN CLINIC PFS, CLERGY, PUBLIC HEALTH REFERRALS PFS REFERRAL NEEDED?NO CLERGY REFERRAL NEEDED?NO PUBLIC HEALTH REFERRAL NEEDED?NO WAS THE PROVIDER NOTIFIED OF ANY PERTINENT INFO?YES N/A HAS THE PATIENT BEEN EDUCATED REGARDING HIS/HER PLAN OF CARE?YES HAS THE PATIENT BEEN EDUCATED REGARDING PAIN, THE RISK FOR PAIN, THE IMPORTANCE OF EFFECTIVE PAIN MANAGEMENT, AND THE PAIN ASSESSMENT PROCESS?YES LATEX QUESTIONNAIRE LATEX ALLERGY : HAVE YOU EVER DEVELOPED ANY TYPE OF REACTION AFTER HANDLING LATEX PRODUCTS SUCH RUBBER GLOVES, CONDOMS, DIAPHRAGMS, BALLOONS, SOCKS, OR UNDERWEAR?NO LATEX ALLERGY : HAVE YOU EVER DEVELOPED ANY TYPE OF REACTION DURING OR AFTER DENTAL APPOINTMENT, VAGINAL/RECTAL EXAMINATION, SURGICAL PROCEDURE, OR ANY OTHER EXPOSURE?NO DATE ASKED : 02/18/2019 LATEX RISK : HAVE YOU EVER HAD ANY DIFFICULTY BREATHING OR HIVES AFTER EATING OR HANDLING ANY FRUITS, OR VEGETABLES; SUCH KIWI, BANANAS, STONE FRUITS, OR CHESTNUTSNO LATEX RISK : DO YOU HAVE A PREVIOUS PERSONAL HISTORY OF MORE THAN NINE SURGERIES, SPINA BIFIDA, OR REPEATED CATHERTIZATIONS? NO LATEX RISK : ARE YOU FREQUENTLY EXPOSED TO LATEX PRODUCTS IN YOUR OCCUPATION?NO CAFFEINE CAFFEINE USE?YES COFFEE,DIET PEPSI ADVANCE DIRECTIVE ADVANCE DIRECTIVE DISCUSSED WITH PATIENT:YES PT DOES NOT HAVE ANY ADVANCED DIRECTIVES AND SHE DECLINED INFORMATION ON HCP AT THIS TIME. PROTESTANT [id number] PROTESTANT MARITAL STATUS: . ALCOHOL SCREENING DID YOU HAVE A DRINK CONTAINING ALCOHOL IN THE PAST YEAR?NO POINTS0 INTERPRETATIONNEGATIVE THIS PATIENT LIVES AT HOME WITH HER AND GRAND-DAUGHTER, (WHOM SHE INTENDS TO ADOPT). SHE SLEEPS OKAY ONLY. SHE FRACTURED RIGHT ELBOW, RIGHT CHEEK FRACTURE, AND LEFT WRIST IN PAST. NO HISTORY OF AN EATING DISORDER. SHE DENIES HISTORY OF PHYSICAL/SEXUAL ABUSE. SHE WEARS SEAT BELTS. SHE IS CURRENT WITH IMMUNIZATIONS AND TETANUS. SHE IS UP TO DATE WITH DENTAL AND EYE EXAMINATIONS. SHE TAKES NO VITAMINS OR CALCIUM.03/17/18 1105 REVIEWED WITH PT. AD 08/27/18 1208 REVIEWED WITH PT. BV10/15/18 REVIEWED WITH PT. ADREVIEWED WITH PT 09/30/18 1048 BV. HOSPITALIZATION/MAJOR DIAGNOSTIC PROCEDURE FOR SURGERIES CHILD X 2 REVIEW OF SYSTEMS REVIEWED BY: PROVIDER: . CONSTITUTIONAL: ANY CHANGE IN YOUR MEDICAL CONDITION? NO . CHILLS NO . FEVER NO . INFECTION: DO YOU HAVE NEW INFECTIONS? NO . DO YOU HAVE HISTORY OF MRSA? NO . MUSCULOSKELETAL: ANY NEW PATTERNS OF PAIN OR NUMBNESS? NO . GASTROENTEROLOGY: ANY NEW CHANGE IN BOWEL CONTROL? NO . GENITOURINARY: ANY NEW CHANGE IN BLADDER CONTROL? NO . IS THERE A CHANCE YOU COULD BE ? NO . HEMATOLOGY/LYMPH: DO YOU TAKE ANY BLOOD THINNERS? (FOR EXAMPLE- COUMADIN, PLAVIX, AGGRENOX, PLATEL, PRADAXA, OR XARELTO) NO . WHEN WAS YOUR LAST DOSE? DATE: TIME: . NEUROLOGY: HAVE YOU FALLEN IN THE PAST 12 MONTHS? NO . ANY NEW EXTREMITY NUMBNESS OR WEAKNESS? NO . CARDIOLOGY: DO YOU HAVE A PACEMAKER OR DEFIBRILLATOR? NO . RESPIRATORY: HAVE YOU BEEN SICK IN THE PAST WEEK? NO . FEVER NO . FLU LIKE SYMPTOMS? NO . COUGH NO . INTEGUMENTARY: DO YOU HAVE ANY RASHES OR OPEN SORES? NO . ALLERGIC/IMMUNO: ARE YOU ALLERGIC TO IV DYE? NO . ANY NEW ALLERGIES? NO . PSYCHIATRIC: DO YOU HAVE THOUGHTS OF HURTING YOURSELF OR SOMEONE ELSE? NO . ARE YOU ABUSED, NEGLECTED, OR IN AN UNSAFE ENVIRONMENT? NO . ENDOCRINOLOGY: ARE YOU DIABETIC? NO . OTHER: DO YOU NEED ANY PRESCRIPTIONS? NO . IF YES, PLEASE LIST: ____ . ANY NEW PROBLEMS WITH YOUR MEDICATIONS? NO . WHEN DID YOU LAST EAT? 03-29-19 . WHEN DID YOU LAST DRINK? ____03-30-19 0530 . WHAT DID YOU LAST DRINK? ____COFFEE . NAME OF PERSON DRIVING YOU HOME? ____ . DO YOU HAVE ANY OTHER QUESTIONS OR CONCERNS NO . VITAL SIGNS WT 149.4 LBS, HT 63 IN, BMI 26.46 INDEX, BP 131/72 MM HG, HR 95 /MIN, RR 16 /MIN, TEMP 97.5 F, OXYGEN SAT % 96%, SAFE IN ENV? (Y/N) YES, NA INITIALS MD 11:34, REVIEWED BY: KG. ASSESSMENTS SACROILIITIS, NOT ELSEWHERE CLASSIFIED - M46.1 (PRIMARY) TREATMENT SACROILIITIS, NOT ELSEWHERE CLASSIFIED [facility] FLUORO GUIDANCE (PAIN)[id number] PROCEDURES PN SI PRE PROCEDURE DIAGNOSIS SACROILIITIS, SACROILIAC JOINT DYSFUNCTION POST PROCEDURE DIAGNOSIS SACROILIITIS, SACROILIAC JOINT DYSFUNCTION PROCEDURE BILATERAL SACROILIAC JOINT BLOCK SURGEON DR. STELLA ASHRAF ASSOCIATE JUSTICE NONE ANESTHESIA LOCAL PRE PROCEDURE NOTE PATIENT WITH HISTORY OF CHRONIC LOW BACK PAIN. I EVALUATED THE PATIENT AND REVIEWED THE CHART. I WENT OVER THE RISKS, ALTERNATIVES, AND BENEFITS ASSOCIATED WITH THIS PROCEDURE. THE PATIENT WOULD LIKE TO PROCEED AND GAVE CONSENT TO PERFORM THE PROCEDURE. THE PATIENT DENIES UNEXPLAINABLE WEIGHT LOSS, FEVER, CHILLS, OR NEW CHANGES IN URINARY OR BOWEL CONTROL DESCRIPTION OF PROCEDURE THE PATIENT WAS BROUGHT TO THE PROCEDURE ROOM AND PLACED IN THE PRONE POSITION. THE LUMBOSACRAL AREA WAS CLEANED WITH CHLORAPREP SOLUTION AND DRAPED ASEPTICALLY. THE PROCEDURE WAS DONE UNDER STERILE CONDITIONS. I CHECKED LATERALITY AND THE LEVEL WHERE THE PROCEDURE WAS GOING TO BE PERFORMED WITH THE PATIENT AND THE SUPPORTING STAFF AT THE MOMENT OF THE TIME OUT IN THE PROCEDURE ROOM. UNDER FLUOROSCOPIC GUIDANCE, TARGET POINT WAS SELECTED AT THE LOWER BORDER OF THE RIGHT AND LEFT SACROILIAC JOINT. TARGET POINT WAS SELECTED AFTER MEDIAL ROTATION AND TILT OF THE MAGNIFIER OF THE C-ARM. LIDOCAINE WAS USED TO NUMB THE SKIN AND SUBCUTANEOUS TISSUE BELOW IT. A SPINAL NEEDLE, 22-GAUGE, WAS ADVANCED UNDER FLUOROSCOPIC GUIDANCE AND FOLLOWING PATIENT FEEDBACK UNTIL THE TARGET AREA WAS TOUCHED. THE POSITION OF THE NEEDLE WAS VERIFIED WITH AP AND LATERAL VIEWS. AFTER PROPER POSITION OF THE NEEDLE WAS ACHIEVED, ISOVUE M DYE 30%, 0.25 ML, WAS INJECTED SHOWING SPREAD OF THE DYE. THEN, A SOLUTION OF 20 MG OF KENALOG WAS INJECTED IN RIGHT AND LEFT JOINT WITH 3 ML OF BUPIVACAINE 0.125%. THERE WAS NO EVIDENCE OF BLOOD, PARESTHESIA OR CEREBROSPINAL FLUID DURING THE PROCEDURE. THE PATIENT WAS SENT TO THE RECOVERY ROOM. THE PATIENT WAS MOVING THE EXTREMITIES AND DOING WELL. THERE WAS NO COMPLICATION DURING THE PROCEDURE. FLUOROSCOPY TIME WAS 14 SECONDS POST PROCEDURE NOTE THE PATIENT WILL BE SEEN IN A FOLLOW UP IN THE NEXT FEW WEEKS. INSTRUCTIONS WERE GIVEN, QUESTIONS WERE ANSWERED, AND THE PATIENT EXPRESSED UNDERSTANDING AND AGREED WITH THE PLAN. I, ARIADNA CURIEL, DOCUMENTED THE ABOVE INFORMATION ACTING A SCRIBE FOR DR. ASHRAF. I HAVE REVIEWED THE ABOVE DOCUMENT, WRITTEN BY ARIADNA PRICEIBJoanna AND I VERIFY THAT IT IS ACCURATE. PROCEDURE CODES 6045F RADXPS IN END [id number] PXD [id number] INJECT SACROILIAC JOINT, MODIFIERS: 50 DISPOSITION & COMMUNICATION FOLLOW UP 3 WEEKS ELECTRONICALLY SIGNED BY STELLA ASHRAF MD, MD ON 04/10/2019 AT 05:07 PM EDT DISCLAIMER : THIS IS A VISIT SUMMARY EXTRACTED FROM THE [employer] CHART. IT IS NOT A COPY OF THE [employer] PROGRESS NOTE. MTDD
== END ==
LOC: M PAIN 11:30
PROVIDERS: ATTEND Anesthesiology
DX: M46.1 Sacroiliitis, not elsewhere classified (principal); F32.9 Major depressive disorder, single episode, unspecified; I10 Essential (primary) hypertension; E78.5 Hyperlipidemia, unspecified; G47.00 Insomnia, unspecified; K58.9 Irritable bowel syndrome, unspecified; K21.9 Gastro-esophageal reflux disease without esophagitis; F17.210 Nicotine dependence, cigarettes, uncomplicated; Z79.899 Other long term (current) drug therapy; Z79.891 Long term (current) use of opiate analgesic; Z88.0 Allergy status to penicillin; Z88.1 Allergy status to other antibiotic agents
CPT/HCPCS: 27096; J3301; Q9967

== ENCOUNTER → 2019-04-02 | Outpatient (CLI) | payer OTHER ==
[~2019-04-02] MED LIST changes: -BUPIVACAINE HCL 0.25% 30 ML VIAL As Ordered ONE; -ISOVUE-M 300 61% 15ML VIAL (Q9967) As Ordered ONE; -LIDOCAINE 1% SDV INJ 30 ML VIAL As Ordered ONE; -TRIAMCINOLONE ACETONIDE SUSP 40 MG/ML VIAL (J3301) As Ordered ONE; -diazePAM 5 MG TAB As Ordered ONE; -oxyCODONE 5MG TAB As Ordered ONE
--- NOTE | 2019-04-02 12:52 | REP ---
CT LUMBAR SPINE WITHOUT CONTRAST: HISTORY: Bilateral sacroiliitis. COMPARISON: CT 07/13/2014 There is no disc bulge or herniation at the L1-2 through L3-4 levels. The nerves exit the neural foramina without compression. A diffuse disc bulge is present at the L4-5 level. There is minimal compression of the thecal sac. There is hypertrophy of the posterior articulating facets. The L4 nerves exit the neural foramina without compression. A left laminectomy defect is present. A diffuse disc bulge is present at the L5-S1 level. This abuts the thecal sac. There is hypertrophy of the posterior articulating facets. The L5 nerves exit the neural foramina without compression. The L4-5 intervertebral disc is decreased in height. Vacuum phenomenon is present. These findings are consistent with disc degeneration. IMPRESSION: 1. Diffuse disc bulge at the L4-5 level with minimal thecal sac compression. A left laminectomy defect is present. 2. Diffuse disc bulge at the L5-S1 level. This abuts the thecal sac. Electronically Signed by Moe Farah MD 04/02/2019 12:57 P
== END ==
LOC: M RAD 11:18
PROVIDERS: ATTEND Nurse Practitioner Family
DX: M46.1 Sacroiliitis, not elsewhere classified (principal); M51.26 Other intervertebral disc displacement, lumbar region

== ENCOUNTER → 2019-05-11 | Outpatient (CLI) | payer OTHER ==
[~2019-05-11] MED LIST changes: -OMEP20CA3 PO; +OMEP20CA4 PO
--- NOTE | 2019-05-25 00:18 | ECWPNPC ---
PATIENT NAME: JOI MCCLAIN : 1965 GENDER: FEMALE VISIT DATE: 05/11/2019 DISCHARGE DATE: 05/11/19 1146 VISIT LOCKED DATE TIME: PHYSICIAN: ELHAM DUDLEY RESOURCE: ELHAM DUDLEY REASON FOR APPOINTMENT 1. POST PROC HISTORY OF PRESENT ILLNESS HISTORY OF PRESENT ILLNESS: HERE FOR POST PROCEDURE F/U.HAD BILAT SIJ ON 03/30/19.CONTINUES TO BENEFIT IN LOW BACK REGION TODAY.CHIEF AREA OF CONCERN FOR PATIENT TODAY IS NEW ONSET OF BILAT. LEG AND FEET NUMBNESS AND PAIN/PRICKLY FEELING OVER THE PAST 10 DAYS.THIS IS DISRUPTING HER SLEEP.COMPLAINING OF NEW ONSET LEFT HIP PAIN.RATING PAIN VAS 6/10. PAIN THE PATIENT DESCRIBES THE PAIN... FALL RISK SCREENING: SCREENING :NO FALLS REPORTED IN THE LAST YEAR CURRENT MEDICATIONS TAKING LINZESS 145MCG CAPSULE 1 CAPSULE ORALLY ONCE A DAY NEEDED TAKING OMEPRAZOLE 40MG CAPSULE DELAYED RELEASE TAKE ONE CAPSULE BY MOUTH DAILY TAKING HYDROCHLOROTHIAZIDE 12.5MG TABLET 1 TABLET ORALLY ONCE A DAY TAKING IMITREX 50 MG TABLET 1 TABLET NEEDED ONE TIME, MAY REPEAT IN 2 HOURS IF HEADACHE STILL PRESENT, MDD 2 ORALLY DIRECTED, NOTES: NOT LATELY TAKING ZOFRAN 4MG TABLET 2 TABLETS ORALLY BID PRN, NOTES: NOT LATELY TAKING ATORVASTATIN CALCIUM 10MG TABLET 1 TABLET ORALLY ONCE A DAY TAKING ERGOCALCIFEROL 36861 UNIT CAPSULE 1 CAPSULE ORALLY ONCE A WEEK TAKING CYMBALTA 60 MG CAPSULE DELAYED RELEASE PARTICLES 1 CAPSULE ORALLY ONCE A DAY TAKING CYMBALTA 30 MG CAPSULE DELAYED RELEASE PARTICLES 1 CAPSULE ORALLY DAILY TAKING GABAPENTIN 300 MG CAPSULE 1 ORALLY QID TAKING BACLOFEN 20 MG TABLET 1 TABLET ORALLY 1 Q6H QID TAKING CELECOXIB 200 MG CAPSULE 1 CAPSULE WITH FOOD ORALLY ONCE A DAY TAKING MORPHINE SULFATE 15 MG TABLET 1 TAB ORALLY Q6H PRN MDD4 NOT-TAKING CLONIDINE HCL 0.1 MG TABLET 1 TABLET AT BEDTIME ORALLY ONCE A DAY MEDICATION LIST REVIEWED AND RECONCILED WITH THE PATIENT PAST MEDICAL HISTORY DEPRESSION HYPERTENSION HYPERLIPIDEMIA INSOMNIA IBS REFLUX CHRONIC BACK PAIN ALLERGIES PENICILLIN (FOR ALLERGIES USE ONLY): HIVES - ALLERGY ANCEF: HIVES - ALLERGY SURGICAL HISTORY BACK SURGERY 2008 GALL BLADDER 1988 HYSTERECTOMY 1993 FAMILY HISTORY FATHER: , DIAGNOSED WITH HEART DISEASE MOTHER: , OTHER, HEART DISEASE, STROKE, CANCER MOTHER-ALZHEIMER\\NMOTHER,AUNT,GRANDMOTHER ALL HAD BREAST CA. SOCIAL HISTORY GENERAL: TOBACCO USE ARE YOU A:CURRENT SMOKER HOW OFTEN DO YOU SMOKE CIGARETTES?EVERY DAY HOW SOON AFTER YOU WAKE UP DO YOU SMOKE YOUR FIRST CIGARETTE?6-30 MIN HOW MANY CIGARETTES A DAY DO YOU SMOKE?6-10 ARE YOU INTERESTED IN QUITTING?NOT READY TO QUIT ADDITIONAL FINDINGS: TOBACCO USER NONE PATIENT COUNSELED ON THE DANGERS OF TOBACCO USE AND URGED TO QUIT:02/18/2019 COUNSELED THE PATIENT ON SMOKING EFFECTS, EDUCATION CGQSKIRI71/27/2018 VAPORNO E-CIGARETTENO SMOKING CESSATION INFORMATION GIVEN03/30/2019 HIV / HEP-C SCREENING HIV TEST OFFERED TO PATIENT:YES DATE OFFERED:12/19/2016 CONSENT ON FILE TEST ACCEPTED:NO HEP-C TEST OFFERED TO PATIENT:YES DATE OFFERED:12/19/2016 CONSENT ON FILE REASON:PATIENT DECLINED TEST ACCEPTED:NO REASON:PATIENT DECLINED EDUCATION LEVEL OF EDUCATION:FINISHED HIGH SCHOOL 11TH GRADE DIET: REGULAR. LANGUAGE YI. 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NO LATEX ALLERGY : HAVE YOU EVER DEVELOPED ANY TYPE OF REACTION DURING OR AFTER DENTAL APPOINTMENT, VAGINAL/RECTAL EXAMINATION, SURGICAL PROCEDURE, OR ANY OTHER EXPOSURE?NO DATE ASKED : 02/18/2019 LATEX RISK : HAVE YOU EVER HAD ANY DIFFICULTY BREATHING OR HIVES AFTER EATING OR HANDLING ANY FRUITS, OR VEGETABLES; SUCH KIWI, BANANAS, STONE FRUITS, OR CHESTNUTSNO LATEX RISK : DO YOU HAVE A PREVIOUS PERSONAL HISTORY OF MORE THAN NINE SURGERIES, SPINA BIFIDA, OR REPEATED CATHERIZATIONS? NO LATEX RISK : ARE YOU FREQUENTLY EXPOSED TO LATEX PRODUCTS IN YOUR OCCUPATION?NO CAFFEINE CAFFEINE USE?YES COFFEE,DIET PEPSI ADVANCE DIRECTIVE ADVANCE DIRECTIVE DISCUSSED WITH PATIENT:YES PT DOES NOT HAVE ANY ADVANCED DIRECTIVES AND SHE DECLINED INFORMATION ON HCP AT THIS TIME. 05/11/19 LATTER-DAY [id number] TEMPLE MARITAL STATUS: . ALCOHOL SCREENING DID YOU HAVE A DRINK CONTAINING ALCOHOL IN THE PAST YEAR?NO POINTS0 INTERPRETATIONNEGATIVE THIS PATIENT LIVES AT HOME WITH HER AND GRAND-DAUGHTER, (WHOM SHE INTENDS TO ADOPT). SHE SLEEPS OKAY ONLY. SHE FRACTURED RIGHT ELBOW, RIGHT CHEEK FRACTURE, AND LEFT WRIST IN PAST. NO HISTORY OF AN EATING DISORDER. SHE DENIES HISTORY OF PHYSICAL/SEXUAL ABUSE. SHE WEARS SEAT BELTS. SHE IS CURRENT WITH IMMUNIZATIONS AND TETANUS. SHE IS UP TO DATE WITH DENTAL AND EYE EXAMINATIONS. SHE TAKES NO VITAMINS OR CALCIUM.03/17/18 1105 REVIEWED WITH PT. AD 08/27/18 1208 REVIEWED WITH PT. BV10/15/18 REVIEWED WITH PT. AD05/11/19 1105 REVIEWED WITH PT BVREVIEWED WITH PT 09/30/18 1048 BV. HOSPITALIZATION/MAJOR DIAGNOSTIC PROCEDURE FOR SURGERIES CHILD X 2 REVIEW OF SYSTEMS REVIEWED BY: PROVIDER: ELHAM JEREZ . CONSTITUTIONAL: ANY CHANGE IN YOUR MEDICAL CONDITION? NO . CHILLS NO . FEVER NO . INFECTION: DO YOU HAVE NEW INFECTIONS? NO . DO YOU HAVE HISTORY OF MRSA? NO . MUSCULOSKELETAL: ANY NEW PATTERNS OF PAIN OR NUMBNESS? YES, PT STATES SHE HAS HAD CONSTANT "PINS AND NEEDLES" FEELING FOR THE PAST WEEK IN BILATERAL LOWER LEGS FROM THE KNEES DOWN TO TOES. STATES THIS IS NEW TO HER. ALSO STATES LEFT HIP HAS HAD INCREASED INTENSITY OF PAIN FOR THE PAST WEEK. . GASTROENTEROLOGY: ANY NEW CHANGE IN BOWEL CONTROL? NO . GENITOURINARY: ANY NEW CHANGE IN BLADDER CONTROL? NO . IS THERE A CHANCE YOU COULD BE ? NO . HEMATOLOGY/LYMPH: DO YOU TAKE ANY BLOOD THINNERS? (FOR EXAMPLE- COUMADIN, PLAVIX, AGGRENOX, PLATEL, PRADAXA, OR XARELTO) NO . WHEN WAS YOUR LAST DOSE? DATE: TIME: . NEUROLOGY: HAVE YOU FALLEN IN THE PAST 12 MONTHS? NO . ANY NEW EXTREMITY NUMBNESS OR WEAKNESS? NO . CARDIOLOGY: DO YOU HAVE A PACEMAKER OR DEFIBRILLATOR? NO . RESPIRATORY: HAVE YOU BEEN SICK IN THE PAST WEEK? NO . FEVER NO . FLU LIKE SYMPTOMS? NO . COUGH NO . INTEGUMENTARY: DO YOU HAVE ANY RASHES OR OPEN SORES? NO . ALLERGIC/IMMUNO: ARE YOU ALLERGIC TO IV DYE? NO . ANY NEW ALLERGIES? NO . PSYCHIATRIC: DO YOU HAVE THOUGHTS OF HURTING YOURSELF OR SOMEONE ELSE? NO . ARE YOU ABUSED, NEGLECTED, OR IN AN UNSAFE ENVIRONMENT? NO . ENDOCRINOLOGY: ARE YOU DIABETIC? NO . OTHER: DO YOU NEED ANY PRESCRIPTIONS? NO . IF YES, PLEASE LIST: ____ . ANY NEW PROBLEMS WITH YOUR MEDICATIONS? NO . WHEN DID YOU LAST EAT? ____ . WHEN DID YOU LAST DRINK? ____ . WHAT DID YOU LAST DRINK? ____ . NAME OF PERSON DRIVING YOU HOME? ____ . DO YOU HAVE ANY OTHER QUESTIONS OR CONCERNS NO . VITAL SIGNS WT 150.2 LBS, HT 63 IN, BMI 26.60 INDEX, BP 128/66 MM HG, HR 90 /MIN, RR 16 /MIN, TEMP 97.3 F, OXYGEN SAT % 96%, NA INITIALS SC 10:59, REVIEWED BY: BV. EXAMINATION GENERAL EXAMINATION: GENERAL APPEARS UNCOMFORTABLE. PSYCH AFFECT NORMAL. LUNGS: LUNG ARAIZA ARE CLEAR TO AUSCULTATION BILATERALLY. GOOD MOVEMENT OF AIR. HEART: HEART RATE REGULAR. MUSCULOSKELETAL: MUSCLE STRENGTH TESTING 5/5 BILATERAL. NEUROLOGIC EXAM: NORMAL STEADY GAIT. ASSESSMENTS NEUROPATHY - G62.9 (PRIMARY) TREATMENT NEUROPATHY CONTINUE CYMBALTA CAPSULE DELAYED RELEASE PARTICLES, 60 MG, 1 CAPSULE, ORALLY, ONCE A DAY CONTINUE CYMBALTA CAPSULE DELAYED RELEASE PARTICLES, 30 MG, 1 CAPSULE, ORALLY, DAILY REFILL GABAPENTIN CAPSULE, 300 MG, 1, ORALLY, QID, 30 DAY(S), 120, REFILLS 2 CONTINUE BACLOFEN TABLET, 20 MG, 1 TABLET, ORALLY, 1 Q6H QID CONTINUE CELECOXIB CAPSULE, 200 MG, 1 CAPSULE WITH FOOD, ORALLY, ONCE A DAY REFILL MORPHINE SULFATE TABLET, 15 MG, 1 TAB, ORALLY, Q6H PRN MDD4, 30 DAY(S), 120, REFILLS 0 NOTES: ISTOP REGISTRY REVIEWED AND DEMONSTRATES COMPLLIANCE. BRINGS IN MEDICATIONS WHICH IS APPROPRIATE FOR WHAT WAS DISPENSED. RECENT URINE TOXICOLOGY REVIEWED. NO UNAUTHORIZED MEDICATIONS. NO ILLICIT SUBSTANCES AND PRESCRIBED MEDICATIONS WERE PRESENT. , RISKS AND BENEFITS OF NARCOTIC/OPIOD MEDICATIONS WERE REVIEWED WITH PATIENT - THIS INCLUDES BUT IS NOT LIMITED TO RISK OF DEPENDANCE/DEVELOPMENT OF ADDICTION, MOOD DISTURBANCE AND DEPRESSION, OSTEOPOROSIS, HORMONAL AND LABIDAL CHANGES, RESPIRATORY DEPRESSION AND . PATIENT IS ADVISED NOT TO DRIVE OR DRINK ALCOHOL WHILE ON THESE MEDICATIONS. [facility]BILAT. LOWER EXT. NEUROPATHY SYMPTOMS PROCEDURE CODES [id number] ESTABILISHED PATIENT [facility] CHARGE DISPOSITION & COMMUNICATION FOLLOW UP 2 MONTHS (REASON: POST NEURO EVAL) ELECTRONICALLY SIGNED BY MERI HARRY ON 05/24/2019 AT 03:35 PM EDT DISCLAIMER : THIS IS A VISIT SUMMARY EXTRACTED FROM THE [employer] CHART. IT IS NOT A COPY OF THE [employer] PROGRESS NOTE. LAURA
== END ==
LOC: M PAIN 10:15
PROVIDERS: ATTEND Nurse Practitioner Family
DX: G62.9 Polyneuropathy, unspecified (principal); Z86.59 Personal history of other mental and behavioral disorders; I10 Essential (primary) hypertension; E78.5 Hyperlipidemia, unspecified; G47.00 Insomnia, unspecified; K21.9 Gastro-esophageal reflux disease without esophagitis; F17.210 Nicotine dependence, cigarettes, uncomplicated; Z87.81 Personal history of (healed) traumatic fracture; Z88.1 Allergy status to other antibiotic agents; Z88.2 Allergy status to sulfonamides; Z79.891 Long term (current) use of opiate analgesic; Z79.899 Other long term (current) drug therapy

== ENCOUNTER → 2019-07-13 | Outpatient (REF) | payer OTHER ==
[2019-07-13 15:54] LABS: BASO # 0.1 10^3/uL (0.0-0.2); EOS # 0.1 10^3/uL (0.0-0.5); EOS % 1.5 % (0.0-3.0); HEMATOCRIT 42.1 % (36.0-47.0); HEMOGLOBIN 13.6 g/dl (12.0-15.5); LYMPH # 2.9 10^3/uL (1.5-5.0); MEAN CORPUSCULAR HEMOGLOBIN 31.1 pg (27.0-33.0); MEAN CORPUSCULAR HGB CONC 32.3 g/dl (32.0-36.5); MEAN CORPUSCULAR VOLUME 96.1 fl (80.0-96.0); MONO # 0.5 10^3/uL (0.0-0.8); NEUTROPHILS # 4.3 10^3/uL (1.5-8.5); NEUTROPHILS % 54.2 % (36.0-66.0); PLATELET COUNT, AUTOMATED 294 10^3/uL (150-450); RED BLOOD COUNT 4.38 10^6/uL (4.00-5.40); WHITE BLOOD COUNT 7.9 10^3/uL (4.0-10.0)
[2019-07-13 16:03] LABS: ALBUMIN 3.7 GM/DL (3.2-5.2); ALT/SGPT 11 U/L (12-78); BILIRUBIN,TOTAL 0.2 MG/DL (0.2-1.0); BLOOD UREA NITROGEN 9 MG/DL (7-18); CALCIUM LEVEL 9.2 MG/DL (8.5-10.1); CARBON DIOXIDE LEVEL 28 MEQ/L (21-32); CHLORIDE LEVEL 107 MEQ/L (98-107); CREATININE FOR GFR 0.81 MG/DL (0.55-1.30); FOLATE 7.6 NG/ML; FREE T4 0.94 NG/DL (0.76-1.46); GLOMERULAR FILTRATION RATE > 60.0 (>51); GLUCOSE, FASTING 79 MG/DL (70-100); POTASSIUM SERUM 4.1 MEQ/L (3.5-5.1); RHEUMATOID FACTOR QUANT < 10.0 IU/ML (<15.0); SODIUM LEVEL 141 MEQ/L (136-145); TOTAL PROTEIN 7.1 GM/DL (6.4-8.2); VITAMIN B12 LEVEL 504 PG/ML
[2019-07-13 16:08] LABS: HEMOGLOBIN A1c 5.3 %
[2019-07-13 16:59] LABS: ERYTHROCYTE SEDIMENTATION RATE 22 mm/hr (0-30)
[2019-07-15 11:28] LABS: ALBUMIN 4.08 GM/DL (3.29-5.55); ALBUMIN % 57.4 % (55.8-66.1); ALPHA-1-GLOBULIN % 4.8 % (2.9-4.9); ALPHA-1-GLOBULINS 0.34 GM/DL (0.17-0.41); ALPHA-2-GLOBULINS 0.74 GM/DL (0.42-0.99); ALPHA-2-GLOBULINS % 10.4 % (7.1-11.8); BETA-1-GLOBULINS 0.48 GM/DL (0.28-0.60); BETA-1-GLOBULINS % 6.8 % (4.7-7.2); BETA-2-GLOBULINS 0.39 GM/DL (0.19-0.55); BETA-2-GLOBULINS % 5.5 % (3.2-6.5); GAMMA GLOBULIN % 15.1 % (11.1-18.8); GAMMA GLOBULINS 1.07 GM/DL (0.65-1.58)
[2019-07-19 14:07] LABS: ANTINUCLEAR ANTIBODIES DIRECT Negative (Negative); Methylmalonic Acid 336 nmol/L (0-378); VITAMIN B1 LEVEL WHOLE BLOOD 111.8 nmol/L (66.5-200.0); VITAMIN B6,PYRIDOXAL PHOSPHATE 11.6 ug/L (2.0-32.8); VITAMIN E(GAMMA TOCOPHEROL) 2.6 mg/L (0.5-5.5)
== END ==
LOC: M LABNEURO 11:06
PROVIDERS: ATTEND Psychiatry & Neurology Neurology
DX: M79.2 Neuralgia and neuritis, unspecified (principal); E11.9 Type 2 diabetes mellitus without complications; E07.9 Disorder of thyroid, unspecified

== ENCOUNTER → 2019-07-21 | Outpatient (CLI) | payer OTHER ==
--- NOTE | 2019-07-22 23:52 | ECWPNPC ---
PATIENT NAME: JOI MCCLAIN : 1965 GENDER: FEMALE VISIT DATE: 07/21/2019 DISCHARGE DATE: 07/21/19 1158 VISIT LOCKED DATE TIME: PHYSICIAN: REUBEN CRONIN RESOURCE: REUBEN CRONIN REASON FOR APPOINTMENT 1. BACK/HIP HISTORY OF PRESENT ILLNESS HISTORY OF PRESENT ILLNESS: PAIN THE PATIENT DESCRIBES THE PAIN... 54-YEAR-OLD FEMALE IN FOR CHRONIC PAIN FOLLOW-UP. SHE RATES HER PAIN CURRENTLY AT AN 8 OUT OF 10 AND DESCRIBES IT ACHING, SHARP, BURNING, STABBING, SORE, SHOOTING, AND TENDER. SHE FURTHER STATES THE PAIN IS CONTINUOUS AND WAKES HER FROM HER SLEEP. FALL RISK SCREENING: SCREENING :NO FALLS REPORTED IN THE LAST YEAR CURRENT MEDICATIONS TAKING LINZESS 145MCG CAPSULE 1 CAPSULE ORALLY ONCE A DAY NEEDED TAKING OMEPRAZOLE 40MG CAPSULE DELAYED RELEASE TAKE ONE CAPSULE BY MOUTH DAILY TAKING IMITREX 50 MG TABLET 1 TABLET NEEDED ONE TIME, MAY REPEAT IN 2 HOURS IF HEADACHE STILL PRESENT, MDD 2 ORALLY DIRECTED, NOTES: NOT LATELY TAKING ATORVASTATIN CALCIUM 10MG TABLET 1 TABLET ORALLY ONCE A DAY TAKING ERGOCALCIFEROL 27488 UNIT CAPSULE 1 CAPSULE ORALLY ONCE A WEEK TAKING CYMBALTA 60 MG CAPSULE DELAYED RELEASE PARTICLES 1 CAPSULE ORALLY ONCE A DAY TAKING CYMBALTA 30 MG CAPSULE DELAYED RELEASE PARTICLES 1 CAPSULE ORALLY DAILY TAKING GABAPENTIN 300 MG CAPSULE 1 ORALLY QID TAKING BACLOFEN 20 MG TABLET 1 TABLET ORALLY 1 Q6H QID TAKING MORPHINE SULFATE 15 MG TABLET 1 TAB ORALLY Q6H PRN MDD4 TAKING CELECOXIB 200 MG CAPSULE 1 CAPSULE WITH FOOD ORALLY ONCE A DAY NOT-TAKING HYDROCHLOROTHIAZIDE 12.5MG TABLET 1 TABLET ORALLY ONCE A DAY NOT-TAKING ZOFRAN 4MG TABLET 2 TABLETS ORALLY BID PRN, NOTES: RAN OUT NOT-TAKING CLONIDINE HCL 0.1 MG TABLET 1 TABLET AT BEDTIME ORALLY ONCE A DAY MEDICATION LIST REVIEWED AND RECONCILED WITH THE PATIENT PAST MEDICAL HISTORY DEPRESSION HYPERTENSION HYPERLIPIDEMIA INSOMNIA IBS REFLUX CHRONIC BACK PAIN ATHRITIS IN BACK BILATERAL HIP BURSITIS, RIGHT > LEFT ALLERGIES PENICILLIN (FOR ALLERGIES USE ONLY): HIVES - ALLERGY ANCEF: HIVES - ALLERGY SURGICAL HISTORY BACK SURGERY 2008 GALL BLADDER 1988 HYSTERECTOMY 1993 FAMILY HISTORY FATHER: , DIAGNOSED WITH UNSPECIFIED HEART DISEASE MOTHER: , UNSPECIFIED HEART DISEASE, UNSPECIFIED CEREBRAL ARTERY OCCLUSION WITH CEREBRAL INFARCTION, OTHER MALIGNANT NEOPLASM OF UNSPECIFIED SITE, OTHER SPECIFIED CONDITIONS INFLUENCING HEALTH STATUS MOTHER-ALZHEIMER\NMOTHER,AUNT,GRANDMOTHER ALL HAD BREAST CA. SOCIAL HISTORY GENERAL: TOBACCO USE ARE YOU A:CURRENT SMOKER ARE YOU INTERESTED IN QUITTING?NOT READY TO QUIT COUNSELED THE PATIENT ON SMOKING EFFECTS, EDUCATION [id number]/02/2019 HOW MANY CIGARETTES A DAY DO YOU SMOKE?6-10 HOW SOON AFTER YOU WAKE UP DO YOU SMOKE YOUR FIRST CIGARETTE?6-30 MIN HOW OFTEN DO YOU SMOKE CIGARETTES?EVERY DAY PATIENT COUNSELED ON THE DANGERS OF TOBACCO USE AND URGED TO QUIT:07/21/2019 ADDITIONAL FINDINGS: TOBACCO USER NONE SMOKING CESSATION INFORMATION GIVEN03/30/2019 VAPORNO E-CIGARETTENO HIV / HEP-C SCREENING HIV TEST OFFERED TO PATIENT:YES DATE OFFERED:12/19/2016 CONSENT ON FILE TEST ACCEPTED:NO HEP-C TEST OFFERED TO PATIENT:YES DATE OFFERED:12/19/2016 CONSENT ON FILE REASON:PATIENT DECLINED TEST ACCEPTED:NO REASON:PATIENT DECLINED EDUCATION LEVEL OF EDUCATION:FINISHED HIGH SCHOOL 11TH GRADE DIET: REGULAR. LANGUAGE DOMINICAN. DOMESTIC VIOLENCE DO YOU FEEL SAFE IN YOUR ENVIRONMENT?YES BMI CARE GOAL FOLLOW-UP ABOVE NORMAL BMI FOLLOW-UPDIETARY MANAGEMENT EDUCATION, GUIDANCE, AND COUNSELING RECREATIONAL DRUG USE DRUG USE?NO LEARNING BARRIERS / SPECIAL NEEDS CHANGE FROM LAST VISIT?NO BARRIERS TO LEARNING?NO HEARING IMPAIRED?NO VISION IMPAIRED?YES :CORRECTIVE LENSES READING COGNITIVELY IMPAIRED?NO READINESS TO LEARN?YES LEARNING PREFERENCES?NO LEARNING CAPABILITIES PRESENT?YES EMOTIONAL BARRIERS?NO SPECIAL DEVICES?NO MACHINE FIXER NEEDED?NO PAIN CLINIC PFS, CLERGY, PUBLIC HEALTH REFERRALS PFS REFERRAL NEEDED?NO CLERGY REFERRAL NEEDED?NO PUBLIC HEALTH REFERRAL NEEDED?NO WAS THE PROVIDER NOTIFIED OF ANY PERTINENT INFO? N/A HAS THE PATIENT BEEN EDUCATED REGARDING HIS/HER PLAN OF CARE?YES HAS THE PATIENT BEEN EDUCATED REGARDING PAIN, THE RISK FOR PAIN, THE IMPORTANCE OF EFFECTIVE PAIN MANAGEMENT, AND THE PAIN ASSESSMENT PROCESS?YES LATEX QUESTIONNAIRE LATEX ALLERGY : HAVE YOU EVER DEVELOPED ANY TYPE OF REACTION AFTER HANDLING LATEX PRODUCTS SUCH RUBBER GLOVES, CONDOMS, DIAPHRAGMS, BALLOONS, SOCKS, OR UNDERWEAR?NO LATEX ALLERGY : HAVE YOU EVER DEVELOPED ANY TYPE OF REACTION DURING OR AFTER DENTAL APPOINTMENT, VAGINAL/RECTAL EXAMINATION, SURGICAL PROCEDURE, OR ANY OTHER EXPOSURE?NO DATE ASKED : 02/18/2019 LATEX RISK : HAVE YOU EVER HAD ANY DIFFICULTY BREATHING OR HIVES AFTER EATING OR HANDLING ANY FRUITS, OR VEGETABLES; SUCH KIWI, BANANAS, STONE FRUITS, OR CHESTNUTSNO LATEX RISK : DO YOU HAVE A PREVIOUS PERSONAL HISTORY OF MORE THAN NINE SURGERIES, SPINA BIFIDA, OR REPEATED CATHERIZATIONS? NO LATEX RISK : ARE YOU FREQUENTLY EXPOSED TO LATEX PRODUCTS IN YOUR OCCUPATION?NO CAFFEINE CAFFEINE USE?YES COFFEE,DIET PEPSI ADVANCE DIRECTIVE ADVANCE DIRECTIVE DISCUSSED WITH PATIENT:YES 07/21/19 PT DOES NOT HAVE ANY ADVANCED DIRECTIVES AND SHE DECLINED INFORMATION ON HCP AT THIS TIME. AD RELIGIOUS [id number] PROTESTANT MARITAL STATUS: . ALCOHOL SCREENING DID YOU HAVE A DRINK CONTAINING ALCOHOL IN THE PAST YEAR?NO POINTS0 INTERPRETATIONNEGATIVE THIS PATIENT LIVES AT HOME WITH HER AND GRAND-DAUGHTER, (WHOM SHE INTENDS TO ADOPT). SHE SLEEPS OKAY ONLY. SHE FRACTURED RIGHT ELBOW, RIGHT CHEEK FRACTURE, AND LEFT WRIST IN PAST. NO HISTORY OF AN EATING DISORDER. SHE DENIES HISTORY OF PHYSICAL/SEXUAL ABUSE. SHE WEARS SEAT BELTS. SHE IS CURRENT WITH IMMUNIZATIONS AND TETANUS. SHE IS UP TO DATE WITH DENTAL AND EYE EXAMINATIONS. SHE TAKES NO VITAMINS OR CALCIUM.03/17/18 1105 REVIEWED WITH PT. AD 08/27/18 1208 REVIEWED WITH PT. BV10/15/18 REVIEWED WITH PT. AD05/11/19 1105 REVIEWED WITH PT BVREVIEWED WITH PT 09/30/18 1048 BV. HOSPITALIZATION/MAJOR DIAGNOSTIC PROCEDURE FOR SURGERIES CHILD X 2 REVIEW OF SYSTEMS REVIEWED BY: PROVIDER: SASKIA MARTINEZ . CONSTITUTIONAL: ANY CHANGE IN YOUR MEDICAL CONDITION? NO . CHILLS NO . FEVER NO . INFECTION: DO YOU HAVE NEW INFECTIONS? NO . DO YOU HAVE HISTORY OF MRSA? NO . MUSCULOSKELETAL: ANY NEW PATTERNS OF PAIN OR NUMBNESS? YES, NUMBNESS HAS GOTTEN WORSE BILTERAL LEGS AND FEET. PAIN IN BOTH HIPS ARE WORSE. SHE IS UNABLE TO FIND A COMFORTABLE WAY TO LIE DOWN DUE TO THE PAIN. THESE HAS STEADIY INCREASED OVER THE PAST 2 MONTHS . GASTROENTEROLOGY: ANY NEW CHANGE IN BOWEL CONTROL? NO . GENITOURINARY: ANY NEW CHANGE IN BLADDER CONTROL? NO . IS THERE A CHANCE YOU COULD BE ? NO . HEMATOLOGY/LYMPH: DO YOU TAKE ANY BLOOD THINNERS? (FOR EXAMPLE- COUMADIN, PLAVIX, AGGRENOX, PLATEL, PRADAXA, OR XARELTO) NO . WHEN WAS YOUR LAST DOSE? DATE: TIME: . NEUROLOGY: HAVE YOU FALLEN IN THE PAST 12 MONTHS? NO . ANY NEW EXTREMITY NUMBNESS OR WEAKNESS? NO . CARDIOLOGY: DO YOU HAVE A PACEMAKER OR DEFIBRILLATOR? NO . RESPIRATORY: HAVE YOU BEEN SICK IN THE PAST WEEK? NO . FEVER NO . FLU LIKE SYMPTOMS? NO . COUGH NO . INTEGUMENTARY: DO YOU HAVE ANY RASHES OR OPEN SORES? NO . ALLERGIC/IMMUNO: ARE YOU ALLERGIC TO IV DYE? NO . ANY NEW ALLERGIES? NO . PSYCHIATRIC: DO YOU HAVE THOUGHTS OF HURTING YOURSELF OR SOMEONE ELSE? NO . ARE YOU ABUSED, NEGLECTED, OR IN AN UNSAFE ENVIRONMENT? NO . ENDOCRINOLOGY: ARE YOU DIABETIC? NO . OTHER: DO YOU NEED ANY PRESCRIPTIONS? YES . IF YES, PLEASE LIST: MORPHINE, ZOFRAN . ANY NEW PROBLEMS WITH YOUR MEDICATIONS? NO . WHEN DID YOU LAST EAT? ____ . WHEN DID YOU LAST DRINK? ____ . WHAT DID YOU LAST DRINK? ____ . NAME OF PERSON DRIVING YOU HOME? ____ . DO YOU HAVE ANY OTHER QUESTIONS OR CONCERNS WOULD LIKE TO DISCUSS INJECTIONS FO HER HIPS AND BACK . VITAL SIGNS WT 152.2 LBS, HT 63 IN, BMI 26.96 INDEX, BP 124/58 MM HG, HR 88 /MIN, RR 16 /MIN, TEMP 96.8 F, OXYGEN SAT % 96%, SAFE IN ENV? (Y/N) Y, NA INITIALS CT 10:56, REVIEWED BY: [place]. EXAMINATION GENERAL EXAMINATION: GENERALNO ACUTE DISTRESS, WELL NOURISHED AND HYDRATED. PSYCHAPPROPRIATE MOOD AND AFFECT . LUNGS:CLEAR TO AUSCULTATION BILATERALLY, NO WHEEZES, RHONCHI, RALES. HEART:NO MURMURS, REGULAR RATE AND RHYTHM. BACK:POINT TENDER OVER LUMBAR SPINE, SURROUNDING SKIN SHOWS NO ERYTHEMA, ECCHYMOSIS, INCREASED WARMTH, AND/OR SKIN ERUPTIONS NOTED. POSITIVE MODIFIED SLR BILATERALLY. . MUSCULOSKELETAL:POSITIVE AMALIA'S TEST BILATERALLY , EQUAL STRENGTH OF LOWER EXTREMITIES BILATERALLY, POINT TENDER OVER SIJ BILATERALLY . 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 CLINICAL NOTES: 54-YEAR-OLD FEMALE IN FOR CHRONIC PAIN FOLLOW-UP. GIVEN PRESENTING SYMPTOMS AND RESULTS OF PHYSICAL EXAMINATION RECOMMENDED BILATERAL SIJ, AND LESI L FOR L5 L5-S1. FURTHER RECOMMENDED INCREASING GABAPENTIN TO 1500 MG DAILY. PATIENT HAS EXPRESSED UNDERSTANDING OF AND WAS IN AGREEMENT WITH TREATMENT PLAN. GIVEN TIME TO ASK QUESTIONS AND EXPRESS CONCERNS., ISTOP REGISTRY REVIEWED AND DEMONSTRATES COMPLLIANCE. (REF # [id number] ) BRINGS IN MEDICATIONS WHICH IS APPROPRIATE FOR WHAT WAS DISPENSED. RECENT URINE TOXICOLOGY REVIEWED. NO UNAUTHORIZED MEDICATIONS. NO ILLICIT SUBSTANCES AND PRESCRIBED MEDICATIONS WERE PRESENT. BILATERAL SACROILIITIS NOTES: BILATERAL SIJ. PREVENTIVE MEDICINE PAIN CLINIC TEACHING: PROCEDURE TEACHING PT DECLINED PRINTED INFORMATION ON SACROILIAC JOINT BLOCK AND LUMBAR EPIDURAL STEROID INJECTION STATING SHE IS FAMILIAR WITH THEM. PRINTED PRE-PROCEDURE INSTRUCTIONS GIVEN FOR BOTH AND PT. VERBALIZED UNDERSTANDING. AD. PROCEDURE CODES FA211 ESTABILISHED PATIENT [facility] CHARGE DISPOSITION & COMMUNICATION FOLLOW UP POSTPROCEDURE (REASON: SEE NOTES ABOVE) ELECTRONICALLY SIGNED BY MERI ZHENG ON 07/22/2019 AT 09:10 AM EDT DISCLAIMER : THIS IS A VISIT SUMMARY EXTRACTED FROM THE [employer] Displays CHART. IT IS NOT A COPY OF THE [employer] PROGRESS NOTE. LAURA
== END ==
LOC: M PAIN 10:30
PROVIDERS: ATTEND Family Medicine
DX: M51.17 Intervertebral disc disorders with radiculopathy, lumbosacral region (principal); M46.1 Sacroiliitis, not elsewhere classified; G89.29 Other chronic pain; Z86.59 Personal history of other mental and behavioral disorders; I10 Essential (primary) hypertension; E78.5 Hyperlipidemia, unspecified; G47.00 Insomnia, unspecified; K21.9 Gastro-esophageal reflux disease without esophagitis; F17.210 Nicotine dependence, cigarettes, uncomplicated; Z88.0 Allergy status to penicillin; Z88.1 Allergy status to other antibiotic agents; Z79.891 Long term (current) use of opiate analgesic; Z79.899 Other long term (current) drug therapy

== ENCOUNTER → 2019-09-08 | Outpatient (CLI) | payer OTHER ==
[~2019-09-08] MED LIST changes: +BUPIVACAINE HCL 0.25% 30 ML VIAL As Ordered ONE; +CELE1CAP9 PO; +IMIT50TA PO; +ISOVUE-M 300 61% 15ML VIAL (Q9967) As Ordered ONE; +LIDOCAINE 1% SDV INJ 30 ML VIAL As Ordered ONE; +TRIAMCINOLONE ACETONIDE SUSP 40 MG/ML VIAL (J3301) As Ordered ONE; +ZOFR4TAB16 PO; +diazePAM 5 MG TAB As Ordered ONE; +oxyCODONE 5MG TAB As Ordered ONE
--- NOTE | 2019-09-08 15:48 | REP ---
SI joint series: Seven views. Tree: Bilateral SI joint injection for pain. 26 seconds of fluoroscopy time is reported. Findings: A sequence of seven last image hold fluoroscopically obtained spot radiographs of the SI joints document various needle positions and contrast injections associated with bilateral facet injection procedure. Electronically Signed by Carlos Garcia MD 09/08/2019 03:39 P
--- NOTE | 2019-09-16 02:25 | ECWPNPC ---
PATIENT NAME: JOI MCCLAIN : 1965 GENDER: FEMALE VISIT DATE: 09/08/2019 DISCHARGE DATE: 09/08/19 1551 VISIT LOCKED DATE TIME: PHYSICIAN: STELLA ASHRAF MD RESOURCE: STELLA ASHRAF MD REASON FOR APPOINTMENT 1. BILATERAL SIJ CHECKING IN HISTORY OF PRESENT ILLNESS HISTORY OF PRESENT ILLNESS: PAIN THE PATIENT DESCRIBES THE PAIN... FALL RISK SCREENING: SCREENING :NO FALLS REPORTED IN THE LAST YEAR CURRENT MEDICATIONS TAKING OMEPRAZOLE 40MG CAPSULE DELAYED RELEASE TAKE ONE CAPSULE BY MOUTH DAILY, NOTES: 09-07-192099 TAKING IMITREX 50 MG TABLET 1 TABLET NEEDED ONE TIME, MAY REPEAT IN 2 HOURS IF HEADACHE STILL PRESENT, MDD 2 ORALLY DIRECTED, NOTES: NOT LATELY TAKING ATORVASTATIN CALCIUM 10MG TABLET 1 TABLET ORALLY ONCE A DAY, NOTES: 09-07-192099 TAKING ERGOCALCIFEROL 76533 UNIT CAPSULE 1 CAPSULE ORALLY ONCE A WEEK, NOTES: SUNDAYS TAKING CYMBALTA 60 MG CAPSULE DELAYED RELEASE PARTICLES 1 CAPSULE ORALLY ONCE A DAY, NOTES: 09-07-192099 TAKING CYMBALTA 30 MG CAPSULE DELAYED RELEASE PARTICLES 1 CAPSULE ORALLY DAILY, NOTES: 09-07-192099 TAKING ZOFRAN 4MG TABLET 2 TABLETS ORALLY BID PRN, NOTES: 09-07-192099 TAKING MORPHINE SULFATE 15 MG TABLET 1 TAB ORALLY Q6H PRN MDD4, NOTES: 09-07-192099 TAKING BACLOFEN 20 MG TABLET 1 TABLET ORALLY 1 Q6H QID, NOTES: 09-07-192099 TAKING GABAPENTIN 300 MG CAPSULE 1 ORALLY QID, NOTES: 09-07-192099 TAKING CELECOXIB 200 MG CAPSULE TAKE ONE CAPSULE BY MOUTH EVERY DAY WITH FOOD ORAL , NOTES: 09-07-192099 TAKING LINZESS 145MCG CAPSULE 1 CAPSULE ORALLY ONCE A DAY NEEDED, NOTES: RAN OUT AND NEEDS REEWED UNKNOWN HYDROCHLOROTHIAZIDE 12.5MG TABLET 1 TABLET ORALLY ONCE A DAY UNKNOWN CLONIDINE HCL 0.1 MG TABLET 1 TABLET AT BEDTIME ORALLY ONCE A DAY MEDICATION LIST REVIEWED AND RECONCILED WITH THE PATIENT PAST MEDICAL HISTORY DEPRESSION HYPERTENSION HYPERLIPIDEMIA INSOMNIA IBS REFLUX CHRONIC BACK PAIN ATHRITIS IN BACK BILATERAL HIP BURSITIS, RIGHT > LEFT ALLERGIES PENICILLIN (FOR ALLERGIES USE ONLY): HIVES - ALLERGY ANCEF: HIVES - ALLERGY SURGICAL HISTORY BACK SURGERY 2008 GALL BLADDER 1988 HYSTERECTOMY 1993 FAMILY HISTORY FATHER: , DIAGNOSED WITH UNSPECIFIED HEART DISEASE MOTHER: , UNSPECIFIED HEART DISEASE, UNSPECIFIED CEREBRAL ARTERY OCCLUSION WITH CEREBRAL INFARCTION, OTHER MALIGNANT NEOPLASM OF UNSPECIFIED SITE, OTHER SPECIFIED CONDITIONS INFLUENCING HEALTH STATUS MOTHER-ALZHEIMER\NMOTHER,AUNT,GRANDMOTHER ALL HAD BREAST CA. SOCIAL HISTORY GENERAL: TOBACCO USE ARE YOU A:CURRENT SMOKER ARE YOU INTERESTED IN QUITTING?NOT READY TO QUIT COUNSELED THE PATIENT ON SMOKING EFFECTS, EDUCATION [id number]/02/2019 HOW MANY CIGARETTES A DAY DO YOU SMOKE?6-10 HOW SOON AFTER YOU WAKE UP DO YOU SMOKE YOUR FIRST CIGARETTE?6-30 MIN HOW OFTEN DO YOU SMOKE CIGARETTES?EVERY DAY PATIENT COUNSELED ON THE DANGERS OF TOBACCO USE AND URGED TO QUIT:07/21/2019 ADDITIONAL FINDINGS: TOBACCO USER NONE SMOKING CESSATION INFORMATION GIVEN09/08/2019 VAPORNO E-CIGARETTENO HIV / HEP-C SCREENING HIV TEST OFFERED TO PATIENT:YES DATE OFFERED:09/06/2019 CONSENT ON FILE TEST ACCEPTED:NO HEP-C TEST OFFERED TO PATIENT:YES DATE OFFERED:09/06/2019 CONSENT ON FILE REASON:PATIENT DECLINED TEST ACCEPTED:NO REASON:PATIENT DECLINED BROCHURE PROVIDED TO PATIENTNO EDUCATION LEVEL OF EDUCATION:FINISHED HIGH SCHOOL 11TH GRADE DIET: REGULAR. LANGUAGE HAITIAN. DOMESTIC VIOLENCE DO YOU FEEL SAFE IN YOUR ENVIRONMENT?YES BMI CARE GOAL FOLLOW-UP ABOVE NORMAL BMI FOLLOW-UPDIETARY MANAGEMENT EDUCATION, GUIDANCE, AND COUNSELING RECREATIONAL DRUG USE DRUG USE?NO LEARNING BARRIERS / SPECIAL NEEDS CHANGE FROM LAST VISIT?NO BARRIERS TO LEARNING?NO HEARING IMPAIRED?NO VISION IMPAIRED?YES COGNITIVELY IMPAIRED?NO :CORRECTIVE LENSES READING READINESS TO LEARN?YES LEARNING PREFERENCES?NO LEARNING CAPABILITIES PRESENT?YES EMOTIONAL BARRIERS?NO SPECIAL DEVICES?NO EXECUTIVE ASST NEEDED?NO PAIN CLINIC PFS, CLERGY, PUBLIC HEALTH REFERRALS PFS REFERRAL NEEDED?NO CLERGY REFERRAL NEEDED?NO PUBLIC HEALTH REFERRAL NEEDED?NO WAS THE PROVIDER NOTIFIED OF ANY PERTINENT INFO? N/A HAS THE PATIENT BEEN EDUCATED REGARDING HIS/HER PLAN OF CARE?YES HAS THE PATIENT BEEN EDUCATED REGARDING PAIN, THE RISK FOR PAIN, THE IMPORTANCE OF EFFECTIVE PAIN MANAGEMENT, AND THE PAIN ASSESSMENT PROCESS?YES LATEX QUESTIONNAIRE LATEX ALLERGY : HAVE YOU EVER DEVELOPED ANY TYPE OF REACTION AFTER HANDLING LATEX PRODUCTS SUCH RUBBER GLOVES, CONDOMS, DIAPHRAGMS, BALLOONS, SOCKS, OR UNDERWEAR?NO LATEX ALLERGY : HAVE YOU EVER DEVELOPED ANY TYPE OF REACTION DURING OR AFTER DENTAL APPOINTMENT, VAGINAL/RECTAL EXAMINATION, SURGICAL PROCEDURE, OR ANY OTHER EXPOSURE?NO LATEX RISK : HAVE YOU EVER HAD ANY DIFFICULTY BREATHING OR HIVES AFTER EATING OR HANDLING ANY FRUITS, OR VEGETABLES; SUCH KIWI, BANANAS, STONE FRUITS, OR CHESTNUTSNO LATEX RISK : DO YOU HAVE A PREVIOUS PERSONAL HISTORY OF MORE THAN NINE SURGERIES, SPINA BIFIDA, OR REPEATED CATHERIZATIONS? NO LATEX RISK : ARE YOU FREQUENTLY EXPOSED TO LATEX PRODUCTS IN YOUR OCCUPATION?NO DATE ASKED : 02/18/2019 CAFFEINE CAFFEINE USE?YES COFFEE,DIET PEPSI ADVANCE DIRECTIVE ADVANCE DIRECTIVE DISCUSSED WITH PATIENT:YES 07/21/19 PT DOES NOT HAVE ANY ADVANCED DIRECTIVES AND SHE DECLINED INFORMATION ON HCP AT THIS TIME. AD CONFUCIANISM [id number] BAPTISM MARITAL STATUS: . ALCOHOL SCREENING DID YOU HAVE A DRINK CONTAINING ALCOHOL IN THE PAST YEAR?NO POINTS0 INTERPRETATIONNEGATIVE SEXUAL HX HAD SEX IN THE LAST 12 MONTHS (VAGINAL, ORAL, OR ANAL)?YES WITHMEN ONLY HAVE YOU EVER HAD AN STD?NO THIS PATIENT LIVES AT HOME WITH HER AND GRAND-DAUGHTER, (WHOM SHE INTENDS TO ADOPT). SHE SLEEPS OKAY ONLY. SHE FRACTURED RIGHT ELBOW, RIGHT CHEEK FRACTURE, AND LEFT WRIST IN PAST. NO HISTORY OF AN EATING DISORDER. SHE DENIES HISTORY OF PHYSICAL/SEXUAL ABUSE. SHE WEARS SEAT BELTS. SHE IS CURRENT WITH IMMUNIZATIONS AND TETANUS. SHE IS UP TO DATE WITH DENTAL AND EYE EXAMINATIONS. SHE TAKES NO VITAMINS OR CALCIUM.03/17/18 1105 REVIEWED WITH PT. AD 08/27/18 1208 REVIEWED WITH PT. BV10/15/18 REVIEWED WITH PT. AD05/11/19 1105 REVIEWED WITH PT BVREVIEWED WITH PT 09/30/18 1048 BV. HOSPITALIZATION/MAJOR DIAGNOSTIC PROCEDURE FOR SURGERIES CHILD X 2 REVIEW OF SYSTEMS REVIEWED BY: PROVIDER: . CONSTITUTIONAL: ANY CHANGE IN YOUR MEDICAL CONDITION? NO . CHILLS NO . FEVER NO . INFECTION: DO YOU HAVE NEW INFECTIONS? NO . DO YOU HAVE HISTORY OF MRSA? NO . MUSCULOSKELETAL: ANY NEW PATTERNS OF PAIN OR NUMBNESS? NO . GASTROENTEROLOGY: ANY NEW CHANGE IN BOWEL CONTROL? NO . GENITOURINARY: ANY NEW CHANGE IN BLADDER CONTROL? NO . IS THERE A CHANCE YOU COULD BE ? NO . HEMATOLOGY/LYMPH: DO YOU TAKE ANY BLOOD THINNERS? (FOR EXAMPLE- COUMADIN, PLAVIX, AGGRENOX, PLATEL, PRADAXA, OR XARELTO) NO . WHEN WAS YOUR LAST DOSE? DATE: TIME: . NEUROLOGY: HAVE YOU FALLEN IN THE PAST 12 MONTHS? NO . ANY NEW EXTREMITY NUMBNESS OR WEAKNESS? NO . CARDIOLOGY: DO YOU HAVE A PACEMAKER OR DEFIBRILLATOR? NO . RESPIRATORY: HAVE YOU BEEN SICK IN THE PAST WEEK? NO . FEVER NO . FLU LIKE SYMPTOMS? NO . COUGH NO . INTEGUMENTARY: DO YOU HAVE ANY RASHES OR OPEN SORES? NO . ALLERGIC/IMMUNO: ARE YOU ALLERGIC TO IV DYE? NO . ANY NEW ALLERGIES? NO . PSYCHIATRIC: DO YOU HAVE THOUGHTS OF HURTING YOURSELF OR SOMEONE ELSE? NO . ARE YOU ABUSED, NEGLECTED, OR IN AN UNSAFE ENVIRONMENT? NO . ENDOCRINOLOGY: ARE YOU DIABETIC? NO . OTHER: DO YOU NEED ANY PRESCRIPTIONS? NO . IF YES, PLEASE LIST: ____ . ANY NEW PROBLEMS WITH YOUR MEDICATIONS? NO . WHEN DID YOU LAST EAT? ____[id number] 8 PM . WHEN DID YOU LAST DRINK? ____[phone] . WHAT DID YOU LAST DRINK? ____DIET PEPSI . NAME OF PERSON DRIVING YOU HOME? ____SAMIA MCCLAIN . DO YOU HAVE ANY OTHER QUESTIONS OR CONCERNS NO . VITAL SIGNS WT 152.4 LBS, HT 63 IN, BMI 26.99 INDEX, BP 139/71 MM HG, HR 86 /MIN, RR 16 /MIN, TEMP 97.3 F, OXYGEN SAT % 96%, NA INITIALS SC 13:32, REVIEWED BY: KG. ASSESSMENTS SACROILIITIS - M46.1 (PRIMARY) TREATMENT SACROILIITIS [facility] GUIDANCE (PAIN)[id number] PROCEDURES PN SI PRE PROCEDURE DIAGNOSIS SACROILIITIS, SACROILIAC JOINT DYSFUNCTION POST PROCEDURE DIAGNOSIS SACROILIITIS, SACROILIAC JOINT DYSFUNCTION PROCEDURE BILATERAL SACROILIAC JOINT BLOCK SURGEON DR. STELLA ASHRAF SWING DRIVER NONE ANESTHESIA LOCAL PRE PROCEDURE NOTE PATIENT WITH HISTORY OF CHRONIC LOW BACK PAIN. I EVALUATED THE PATIENT AND REVIEWED THE CHART. I WENT OVER THE RISKS, ALTERNATIVES, AND BENEFITS ASSOCIATED WITH THIS PROCEDURE. THE PATIENT WOULD LIKE TO PROCEED AND GAVE CONSENT TO PERFORM THE PROCEDURE. THE PATIENT DENIES UNEXPLAINABLE WEIGHT LOSS, FEVER, CHILLS, OR NEW CHANGES IN URINARY OR BOWEL CONTROL DESCRIPTION OF PROCEDURE THE PATIENT WAS BROUGHT TO THE PROCEDURE ROOM AND PLACED IN THE PRONE POSITION. THE LUMBOSACRAL AREA WAS CLEANED WITH CHLORAPREP SOLUTION AND DRAPED ASEPTICALLY. THE PROCEDURE WAS DONE UNDER STERILE CONDITIONS. I CHECKED LATERALITY AND THE LEVEL WHERE THE PROCEDURE WAS GOING TO BE PERFORMED WITH THE PATIENT AND THE SUPPORTING STAFF AT THE MOMENT OF THE TIME OUT IN THE PROCEDURE ROOM. UNDER FLUOROSCOPIC GUIDANCE, TARGET POINT WAS SELECTED AT THE LOWER BORDER OF THE RIGHT AND LEFT SACROILIAC JOINT. TARGET POINT WAS SELECTED AFTER MEDIAL ROTATION AND TILT OF THE MAGNIFIER OF THE C-ARM. LIDOCAINE WAS USED TO NUMB THE SKIN AND SUBCUTANEOUS TISSUE BELOW IT. A SPINAL NEEDLE, 22-GAUGE, WAS ADVANCED UNDER FLUOROSCOPIC GUIDANCE AND FOLLOWING PATIENT FEEDBACK UNTIL THE TARGET AREA WAS TOUCHED. THE POSITION OF THE NEEDLE WAS VERIFIED WITH AP AND LATERAL VIEWS. AFTER PROPER POSITION OF THE NEEDLE WAS ACHIEVED, ISOVUE M DYE 30%, 0.25 ML, WAS INJECTED SHOWING SPREAD OF THE DYE. THEN, A SOLUTION OF 30 MG OF KENALOG WAS INJECTED IN RIGHT AND LEFT JOINT WITH 3 ML OF BUPIVACAINE 0.125%. THERE WAS NO EVIDENCE OF BLOOD, PARESTHESIA OR CEREBROSPINAL FLUID DURING THE PROCEDURE. THE PATIENT WAS SENT TO THE RECOVERY ROOM. THE PATIENT WAS MOVING THE EXTREMITIES AND DOING WELL. THERE WAS NO COMPLICATION DURING THE PROCEDURE. FLUOROSCOPY TIME WAS 25 SECONDS POST PROCEDURE NOTE THE PATIENT WILL BE SEEN IN A FOLLOW UP IN THE NEXT FEW WEEKS. INSTRUCTIONS WERE GIVEN, QUESTIONS WERE ANSWERED, AND THE PATIENT EXPRESSED UNDERSTANDING AND AGREED WITH THE PLAN. I, LEE ANN ZUNIGA, DOCUMENTED THE ABOVE INFORMATION ACTING A SCRIBE FOR DR. ASHRAF. I HAVE REVIEWED THE ABOVE DOCUMENT, WRITTEN BY LEE ANN RODRIGUEZ AND I VERIFY THAT IT IS ACCURATE. PROCEDURE CODES 20474 INJECT SACROILIAC JOINT, MODIFIERS: [id number] RADXPS IN END [id number] PXD DISPOSITION & COMMUNICATION FOLLOW UP 3 WEEKS ELECTRONICALLY SIGNED BY STELLA ASHRAF MD, MD ON 09/15/2019 AT 04:00 PM EST DISCLAIMER : THIS IS A VISIT SUMMARY EXTRACTED FROM THE [employer] CHART. IT IS NOT A COPY OF THE [employer] PROGRESS NOTE. MTDD
== END ==
LOC: M PAIN 13:00
PROVIDERS: ATTEND Anesthesiology
DX: M46.1 Sacroiliitis, not elsewhere classified (principal); Z86.59 Personal history of other mental and behavioral disorders; I10 Essential (primary) hypertension; E78.5 Hyperlipidemia, unspecified; G47.30 Sleep apnea, unspecified; K21.9 Gastro-esophageal reflux disease without esophagitis; F17.210 Nicotine dependence, cigarettes, uncomplicated; Z88.0 Allergy status to penicillin; Z88.1 Allergy status to other antibiotic agents; Z79.891 Long term (current) use of opiate analgesic; Z79.899 Other long term (current) drug therapy
CPT/HCPCS: 27096; J3301; Q9967

== ENCOUNTER → 2019-09-14 | Outpatient (CLI) | payer OTHER ==
[~2019-09-14] MED LIST changes: -BUPIVACAINE HCL 0.25% 30 ML VIAL As Ordered ONE; -ISOVUE-M 300 61% 15ML VIAL (Q9967) As Ordered ONE; -LIDOCAINE 1% SDV INJ 30 ML VIAL As Ordered ONE; +MIDAZOLAM INJ 2 MG/2 ML VIAL (J2250) As Ordered ONE; -TRIAMCINOLONE ACETONIDE SUSP 40 MG/ML VIAL (J3301) As Ordered ONE; -diazePAM 5 MG TAB As Ordered ONE; -oxyCODONE 5MG TAB As Ordered ONE
[2019-09-14 10:40] VITALS: BP 127/70
--- NOTE | 2019-09-14 10:50 | REP ---
MRI LUMBAR SPINE WITHOUT CONTRAST: HISTORY: Spondylosis. Comparison MRI study May 24, 2016. Comparison CT study April 02, 2019. TECHNIQUE: Sagittal and axial T1- and T2-weighted scans are acquired in the usual fashion with and without fat saturation. Sequences include spin echo, turbo spin-echo, and STIR imaging sequences. MRI FINDINGS: Lumbar vertebral body heights are preserved. Alignment is normal. There is no evidence of spondylolysis or spondylolisthesis. The tip of the conus medullaris is normal in position and appearance at L1. Normal caliber aorta. No extra vertebral abnormality is observed. There is a perineural cyst in the second sacral segment thecal sac noted incidentally. These are of no clinical significance. Axial and sagittal images at L1-2, and L2-3 show no significant abnormality. At L3-4, there is mild bilateral facet hypertrophy. Disc space is preserved in height and signal intensity. No disc protrusion is seen. No central canal stenosis or neural foraminal narrowing is seen. At L4-5, there is degenerative disc narrowing. A left sided laminectomy defect is observed. There is facet hypertrophy bilaterally, right more so than left. There is no evidence of central canal stenosis. There is a right posterior disc bulging contributing to mild foraminal narrowing. This is unchanged. At L5-S1, there is facet hypertrophy bilaterally. Central diffuse disc bulging is seen. No foraminal narrowing or spinal stenosis is seen. IMPRESSION: Post laminectomy changes on the left at L4-5. A right foraminal disc bulge at L4-5 contributes to mild right-sided foraminal narrowing. This is unchanged. There is facet hypertrophy bilaterally at L4-5 and L5-S1. Electronically Signed by Carlos Garcia MD 09/14/2019 11:47 A
== END ==
LOC: M SDC 08:34
PROVIDERS: ATTEND Psychiatry & Neurology Neurology
DX: M99.53 Intervertebral disc stenosis of neural canal of lumbar region (principal); M89.38 Hypertrophy of bone, other site; M43.06 Spondylolysis, lumbar region; R20.2 Paresthesia of skin; M79.604 Pain in right leg
CPT/HCPCS: 72148; 99156; 99157; J2250

== ENCOUNTER → 2019-09-29 | Outpatient (CLI) | payer OTHER ==
[~2019-09-29] MED LIST changes: +ISOVUE-M 300 61% 15ML VIAL (Q9967) As Ordered ONE; +LIDOCAINE 1% SDV INJ 30 ML VIAL As Ordered ONE; -MIDAZOLAM INJ 2 MG/2 ML VIAL (J2250) As Ordered ONE; +OMEP-172 PO; -OMEP20CA4 PO; +ONDANSETRON 4 MG ORAL DISINTEGRATING TAB (Q0162 PER 1MG) As Ordered ONE; +diazePAM 5 MG TAB As Ordered ONE; +methylPREDNISolone SUSP 40 MG/ML (DEPO-medrol) VIAL (J1030) As Ordered ONE; +oxyCODONE 5MG TAB As Ordered ONE
--- NOTE | 2019-09-29 14:55 | REP ---
C-ARM VIEWS LUMBAR SPINE: CLINICAL HISTORY: Pain. Three C-arm views lumbar spine performed during lumbar epidural injection performed by Dr. Mcgee. Needle is seen at the lumbosacral junction. A small amount of contrast is injected. 13 seconds fluoroscopy time utilized. Electronically Signed by Costa Mayen MD 10/04/2019 09:45 A
--- NOTE | 2019-10-06 04:26 | ECWPNPC ---
PATIENT NAME: JOI MCCLAIN : 1965 GENDER: FEMALE VISIT DATE: 09/29/2019 DISCHARGE DATE: 09/29/19 1449 VISIT LOCKED DATE TIME: PHYSICIAN: STELLA ASHRAF MD RESOURCE: STELLA ASHRAF MD REASON FOR APPOINTMENT 1. LESI HISTORY OF PRESENT ILLNESS HISTORY OF PRESENT ILLNESS: PAIN THE PATIENT DESCRIBES THE PAIN... FALL RISK SCREENING: SCREENING :NO FALLS REPORTED IN THE LAST YEAR CURRENT MEDICATIONS TAKING OMEPRAZOLE 40MG CAPSULE DELAYED RELEASE TAKE ONE CAPSULE BY MOUTH DAILY, NOTES: 09/28/19 TAKING IMITREX 50 MG TABLET 1 TABLET NEEDED ONE TIME, MAY REPEAT IN 2 HOURS IF HEADACHE STILL PRESENT, MDD 2 ORALLY DIRECTED, NOTES: NONE RECENT TAKING ATORVASTATIN CALCIUM 10MG TABLET 1 TABLET ORALLY ONCE A DAY, NOTES: 09/28/19 TAKING ERGOCALCIFEROL 59523 UNIT CAPSULE 1 CAPSULE ORALLY ONCE A WEEK, NOTES: SUNDAYS TAKING CYMBALTA 60 MG CAPSULE DELAYED RELEASE PARTICLES 1 CAPSULE ORALLY ONCE A DAY, NOTES: 09/28/19 TAKING CYMBALTA 30 MG CAPSULE DELAYED RELEASE PARTICLES 1 CAPSULE ORALLY DAILY, NOTES: 09/28/19 TAKING ZOFRAN 4MG TABLET 2 TABLETS ORALLY BID PRN, NOTES: 09/28/19 TAKING MORPHINE SULFATE 15 MG TABLET 1 TAB ORALLY Q6H PRN MDD4, NOTES: 09/29/19 0400 TAKING GABAPENTIN 300 MG CAPSULE 1 ORALLY SHE TAKES 1 IN A.M., 1 AT NOON, 1 IN AFTERNOON, 1 IN THE EVENING AND 2 AT HS, NOTES: 09/28/19 TAKING CELECOXIB 200 MG CAPSULE TAKE ONE CAPSULE BY MOUTH EVERY DAY WITH FOOD ORAL DAILY, NOTES: 09/28/19 TAKING BACLOFEN 20 MG TABLET 1 TABLET ORALLY 1 Q6H QID, NOTES: 09/28/19 NOT-TAKING LINZESS 145MCG CAPSULE 1 CAPSULE ORALLY ONCE A DAY NEEDED, NOTES: RAN OUT AND NEEDS REEWED NOT-TAKING HYDROCHLOROTHIAZIDE 12.5MG TABLET 1 TABLET ORALLY ONCE A DAY NOT-TAKING CLONIDINE HCL 0.1 MG TABLET 1 TABLET AT BEDTIME ORALLY ONCE A DAY MEDICATION LIST REVIEWED AND RECONCILED WITH THE PATIENT PAST MEDICAL HISTORY DEPRESSION HYPERTENSION HYPERLIPIDEMIA INSOMNIA IBS REFLUX CHRONIC BACK PAIN ATHRITIS IN BACK BILATERAL HIP BURSITIS, RIGHT > LEFT ALLERGIES PENICILLIN (FOR ALLERGIES USE ONLY): HIVES - ALLERGY ANCEF: HIVES - ALLERGY STRAWBERRIES/MANGOS: SEVERE HIVES, ITCHING - ALLERGY SURGICAL HISTORY BACK SURGERY 2009 GALL BLADDER 1988 HYSTERECTOMY 1993 LEFT BREAST BIOPSY AGE 14 RIGHT BREAST BIOPSY 2003 FAMILY HISTORY FATHER: , DIAGNOSED WITH UNSPECIFIED HEART DISEASE MOTHER: , UNSPECIFIED HEART DISEASE, UNSPECIFIED CEREBRAL ARTERY OCCLUSION WITH CEREBRAL INFARCTION, OTHER MALIGNANT NEOPLASM OF UNSPECIFIED SITE, OTHER SPECIFIED CONDITIONS INFLUENCING HEALTH STATUS MOTHER-ALZHEIMER\NMOTHER,AUNT,GRANDMOTHER ALL HAD BREAST CA. SOCIAL HISTORY GENERAL: TOBACCO USE ARE YOU A:CURRENT SMOKER ARE YOU INTERESTED IN QUITTING?NOT READY TO QUIT COUNSELED THE PATIENT ON SMOKING EFFECTS, EDUCATION [id number]/03/2019 HOW MANY CIGARETTES A DAY DO YOU SMOKE?6-10 HOW SOON AFTER YOU WAKE UP DO YOU SMOKE YOUR FIRST CIGARETTE?6-30 MIN HOW OFTEN DO YOU SMOKE CIGARETTES?EVERY DAY PATIENT COUNSELED ON THE DANGERS OF TOBACCO USE AND URGED TO QUIT:09/21/2019 ADDITIONAL FINDINGS: TOBACCO USER NONE SMOKING CESSATION INFORMATION GIVEN09/08/2019 VAPORNO E-CIGARETTENO HIV / HEP-C SCREENING HIV TEST OFFERED TO PATIENT:YES DATE OFFERED:09/06/2019 CONSENT ON FILE TEST ACCEPTED:NO HEP-C TEST OFFERED TO PATIENT:YES DATE OFFERED:09/06/2019 CONSENT ON FILE REASON:PATIENT DECLINED TEST ACCEPTED:NO REASON:PATIENT DECLINED BROCHURE PROVIDED TO PATIENTNO EDUCATION LEVEL OF EDUCATION:FINISHED HIGH SCHOOL 11TH GRADE DIET: REGULAR. LANGUAGE ALBANIAN. DOMESTIC VIOLENCE DO YOU FEEL SAFE IN YOUR ENVIRONMENT?YES BMI CARE GOAL FOLLOW-UP ABOVE NORMAL BMI FOLLOW-UPDIETARY MANAGEMENT EDUCATION, GUIDANCE, AND COUNSELING RECREATIONAL DRUG USE DRUG USE?NO LEARNING BARRIERS / SPECIAL NEEDS CHANGE FROM LAST VISIT?NO BARRIERS TO LEARNING?NO HEARING IMPAIRED?NO VISION IMPAIRED?YES :CORRECTIVE LENSES READING COGNITIVELY IMPAIRED?NO READINESS TO LEARN?YES LEARNING PREFERENCES?NO LEARNING CAPABILITIES PRESENT?YES EMOTIONAL BARRIERS?NO SPECIAL DEVICES?NO DIRECTOR OF EMERGENCY NURSING NEEDED?NO PAIN CLINIC PFS, CLERGY, PUBLIC HEALTH REFERRALS PFS REFERRAL NEEDED?NO CLERGY REFERRAL NEEDED?NO PUBLIC HEALTH REFERRAL NEEDED?NO WAS THE PROVIDER NOTIFIED OF ANY PERTINENT INFO? N/A HAS THE PATIENT BEEN EDUCATED REGARDING HIS/HER PLAN OF CARE?YES HAS THE PATIENT BEEN EDUCATED REGARDING PAIN, THE RISK FOR PAIN, THE IMPORTANCE OF EFFECTIVE PAIN MANAGEMENT, AND THE PAIN ASSESSMENT PROCESS?YES LATEX QUESTIONNAIRE LATEX ALLERGY : HAVE YOU EVER DEVELOPED ANY TYPE OF REACTION AFTER HANDLING LATEX PRODUCTS SUCH RUBBER GLOVES, CONDOMS, DIAPHRAGMS, BALLOONS, SOCKS, OR UNDERWEAR?NO LATEX ALLERGY : HAVE YOU EVER DEVELOPED ANY TYPE OF REACTION DURING OR AFTER DENTAL APPOINTMENT, VAGINAL/RECTAL EXAMINATION, SURGICAL PROCEDURE, OR ANY OTHER EXPOSURE?NO LATEX RISK : HAVE YOU EVER HAD ANY DIFFICULTY BREATHING OR HIVES AFTER EATING OR HANDLING ANY FRUITS, OR VEGETABLES; SUCH KIWI, BANANAS, STONE FRUITS, OR CHESTNUTSYES - PLEASE INDICATE : MANGOS LATEX RISK : DO YOU HAVE A PREVIOUS PERSONAL HISTORY OF MORE THAN NINE SURGERIES, SPINA BIFIDA, OR REPEATED CATHERIZATIONS? NO LATEX RISK : ARE YOU FREQUENTLY EXPOSED TO LATEX PRODUCTS IN YOUR OCCUPATION?NO DATE ASKED : 09/21/2019 CAFFEINE CAFFEINE USE?YES COFFEE,DIET PEPSI ADVANCE DIRECTIVE ADVANCE DIRECTIVE DISCUSSED WITH PATIENT:YES 09/21/19 PT DOES NOT HAVE ANY ADVANCED DIRECTIVES AND SHE DECLINES INFORMATION ON HCP AT THIS TIME. AD ZOROASTRIAN [id number] BUDDHIST MARITAL STATUS: . ALCOHOL SCREENING DID YOU HAVE A DRINK CONTAINING ALCOHOL IN THE PAST YEAR?NO POINTS0 INTERPRETATIONNEGATIVE SEXUAL HX HAD SEX IN THE LAST 12 MONTHS (VAGINAL, ORAL, OR ANAL)?YES WITHMEN ONLY HAVE YOU EVER HAD AN STD?NO THIS PATIENT LIVES AT HOME WITH HER AND GRAND-DAUGHTER, (WHOM SHE INTENDS TO ADOPT). SHE SLEEPS OKAY ONLY. SHE FRACTURED RIGHT ELBOW, RIGHT CHEEK FRACTURE, AND LEFT WRIST IN PAST. NO HISTORY OF AN EATING DISORDER. SHE DENIES HISTORY OF PHYSICAL/SEXUAL ABUSE. SHE WEARS SEAT BELTS. SHE IS CURRENT WITH IMMUNIZATIONS AND TETANUS. SHE IS UP TO DATE WITH DENTAL AND EYE EXAMINATIONS. SHE TAKES NO VITAMINS OR CALCIUM.03/17/18 1105 REVIEWED WITH PT. AD 08/27/18 1208 REVIEWED WITH PT. BV01/05 1000 PRE-PROCEDURE SCREENING CALL DONE. AD10/15/18 REVIEWED WITH PT. AD05/11/19 1105 REVIEWED WITH PT BVREVIEWED WITH PT 09/30/18 1048 BV. HOSPITALIZATION/MAJOR DIAGNOSTIC PROCEDURE FOR SURGERIES CHILD X 2 REVIEW OF SYSTEMS REVIEWED BY: PROVIDER: . CONSTITUTIONAL: ANY CHANGE IN YOUR MEDICAL CONDITION? NO . CHILLS NO . FEVER NO . INFECTION: DO YOU HAVE NEW INFECTIONS? NO . DO YOU HAVE HISTORY OF MRSA? NO . MUSCULOSKELETAL: ANY NEW PATTERNS OF PAIN OR NUMBNESS? NO . GASTROENTEROLOGY: ANY NEW CHANGE IN BOWEL CONTROL? NO . GENITOURINARY: ANY NEW CHANGE IN BLADDER CONTROL? NO . IS THERE A CHANCE YOU COULD BE ? NO . HEMATOLOGY/LYMPH: DO YOU TAKE ANY BLOOD THINNERS? (FOR EXAMPLE- COUMADIN, PLAVIX, AGGRENOX, PLATEL, PRADAXA, OR XARELTO) NO . WHEN WAS YOUR LAST DOSE? DATE: TIME: . NEUROLOGY: HAVE YOU FALLEN IN THE PAST 12 MONTHS? NO . ANY NEW EXTREMITY NUMBNESS OR WEAKNESS? NO . CARDIOLOGY: DO YOU HAVE A PACEMAKER OR DEFIBRILLATOR? NO . RESPIRATORY: HAVE YOU BEEN SICK IN THE PAST WEEK? NO . FEVER NO . FLU LIKE SYMPTOMS? NO . COUGH NO . INTEGUMENTARY: DO YOU HAVE ANY RASHES OR OPEN SORES? NO . ALLERGIC/IMMUNO: ARE YOU ALLERGIC TO IV DYE? NO . ANY NEW ALLERGIES? NO . PSYCHIATRIC: DO YOU HAVE THOUGHTS OF HURTING YOURSELF OR SOMEONE ELSE? NO . ARE YOU ABUSED, NEGLECTED, OR IN AN UNSAFE ENVIRONMENT? NO . ENDOCRINOLOGY: ARE YOU DIABETIC? NO . OTHER: DO YOU NEED ANY PRESCRIPTIONS? NO . IF YES, PLEASE LIST: ____ . ANY NEW PROBLEMS WITH YOUR MEDICATIONS? NO . WHEN DID YOU LAST EAT? 09/28/19 1800 . WHEN DID YOU LAST DRINK? 09/29/19 0530 . WHAT DID YOU LAST DRINK? COFFEE . NAME OF PERSON DRIVING YOU HOME? SAMIA . DO YOU HAVE ANY OTHER QUESTIONS OR CONCERNS NO . VITAL SIGNS WT 151.8 LBS, HT 63 IN, BMI 26.89 INDEX, BP 168/81 MM HG, HR 84 /MIN, RR 16 /MIN, TEMP 97.5 F, OXYGEN SAT % 100%, NA INITIALS SC 13:33, REVIEWED BY: BV. ASSESSMENTS INTERVERTEBRAL DISC DISORDERS WITH RADICULOPATHY, LUMBOSACRAL REGION - M51.17 (PRIMARY) TREATMENT INTERVERTEBRAL DISC DISORDERS WITH RADICULOPATHY, LUMBOSACRAL REGION [facility] FLUORO GUIDE SPINE INJECTION (PAIN)[id number] PROCEDURES PRE PROCEDURE DIAGNOSIS LUMBOSACRAL DISC DISORDER WITH RADICULOPATHY POST PROCEDURE DIAGNOSIS LUMBOSACRAL DISC DISORDER WITH RADICULOPATHY PROCEDURE LUMBAR EPIDURAL STEROID INJECTION UNDER FLUOROSCOPIC GUIDANCE SURGEON DR. STELLA ASHRAF SATURATION DIVER NONE ANESTHESIA LOCAL PRE PROCEDURE NOTE THE PATIENT HAS A HISTORY OF CHRONIC LOW BACK PAIN. I EVALUATED THE PATIENT AND REVIEWED THE CHART. I WENT OVER THE RISKS, ALTERNATIVES, AND BENEFITS ASSOCIATED WITH THIS PROCEDURE. THE PATIENT WOULD LIKE TO PROCEED AND GIVES CONSENT TO PERFORM THE PROCEDURE. THE PATIENT DENIES UNEXPLAINABLE WEIGHT LOSS, FEVER, CHILLS, OR NEW CHANGES IN URINARY OR BOWEL CONTROL. DESCRIPTION OF PROCEDURE THE PATIENT WAS BROUGHT TO THE PROCEDURE ROOM AND PLACED IN THE PRONE POSITION. THE LUMBOSACRAL AREA WAS CLEANED WITH BETADINE SOLUTION AND DRAPED ASEPTICALLY. THE PROCEDURE WAS DONE UNDER STERILE CONDITIONS. I CHECKED LATERALITY AND THE LEVEL WHERE THE PROCEDURE WAS GOING TO BE PERFORMED WITH THE PATIENT AND THE SUPPORTING STAFF AT THE MOMENT OF THE TIME OUT IN THE PROCEDURE ROOM. UNDER FLUOROSCOPIC GUIDANCE, THE TARGET POINT WAS SELECTED AT THE INTERLAMINAR LEVEL OF L5-S1. LIDOCAINE WAS USED TO NUMB THE SKIN AND THE SUBCUTANEOUS TISSUE BELOW IT. EPIDURAL TUOHY NEEDLE, 17-GAUGE, WAS ADVANCED UNDER FLUOROSCOPIC GUIDANCE AND FOLLOWING PATIENT FEEDBACK UNTIL THE EPIDURAL SPACE WAS REACHED, 7 CM DEEP INTO THE SKIN BY THE LOSS OF RESISTANCE TECHNIQUE. ISOVUE M DYE 30%, 0.25 ML, WAS INJECTED SHOWING ADEQUATE SPREAD OF THE DYE. THEN, A SOLUTION OF 3 ML OF NORMAL SALINE WITH DEPO-MEDROL 60 MG WAS INJECTED SLOWLY FOLLOWING PATIENT FEEDBACK. THERE WAS NO EVIDENCE OF BLOOD, PARESTHESIA OR CEREBROSPINAL FLUID DURING THE PROCEDURE. THE PATIENT WAS SENT TO THE RECOVERY ROOM. THE PATIENT WAS MOVING THE EXTREMITIES AND DOING WELL. THERE WAS NO COMPLICATION DURING THE PROCEDURE. FLUOROSCOPY TIME WAS 13 SECONDS. POST PROCEDURE NOTE THE PATIENT WILL BE SEEN IN A FOLLOW UP IN THE NEXT FEW WEEKS. INSTRUCTIONS WERE GIVEN, QUESTIONS WERE ANSWERED, AND THE PATIENT EXPRESSED UNDERSTANDING AND AGREES WITH THE PLAN. I, LEE ANN ZUNIGA, DOCUMENTED THE ABOVE INFORMATION ACTING A SCRIBE FOR DR. ASHRAF. I HAVE REVIEWED THE ABOVE DOCUMENT, WRITTEN BY LEE ANN ZUNIGA SCRIBJoanna AND I VERIFY THAT IT IS ACCURATE. PROCEDURE CODES 98438 LUMBAR/SACRAL W/ IMAGING 6045F RADXPS IN END [id number] PXD DISPOSITION & COMMUNICATION FOLLOW UP 2 WEEKS ELECTRONICALLY SIGNED BY STELLA ASHRAF MD, MD ON 10/05/2019 AT 10:57 AM EST DISCLAIMER : THIS IS A VISIT SUMMARY EXTRACTED FROM THE [facility] CHART. IT IS NOT A COPY OF THE [facility] PROGRESS NOTE. MTDD
== END ==
LOC: M PAIN 13:00
PROVIDERS: ATTEND Anesthesiology
DX: M51.17 Intervertebral disc disorders with radiculopathy, lumbosacral region (principal); Z86.59 Personal history of other mental and behavioral disorders; I10 Essential (primary) hypertension; E78.5 Hyperlipidemia, unspecified; G47.00 Insomnia, unspecified; K21.9 Gastro-esophageal reflux disease without esophagitis; F17.210 Nicotine dependence, cigarettes, uncomplicated; Z88.1 Allergy status to other antibiotic agents; Z91.018 Allergy to other foods; Z79.891 Long term (current) use of opiate analgesic; Z79.899 Other long term (current) drug therapy
CPT/HCPCS: 62323; J1030; Q0162; Q9967

== ENCOUNTER → 2019-10-15 | Outpatient (CLI) | payer OTHER ==
[~2019-10-15] MED LIST changes: +ATOR1TAB19 PO; +BACL1TAB9 PO; +COLA100C5 PO; +DULO1CAP6 PO; +HYDR12.55 PO; +HYDR50TA70 PO; -ISOVUE-M 300 61% 15ML VIAL (Q9967) As Ordered ONE; -LIDOCAINE 1% SDV INJ 30 ML VIAL As Ordered ONE; -OMEP-172 PO; +OMEP-221 PO; +OMEP1CAP73 PO; -ONDANSETRON 4 MG ORAL DISINTEGRATING TAB (Q0162 PER 1MG) As Ordered ONE; +VITA50005 PO; -diazePAM 5 MG TAB As Ordered ONE; -methylPREDNISolone SUSP 40 MG/ML (DEPO-medrol) VIAL (J1030) As Ordered ONE; -oxyCODONE 5MG TAB As Ordered ONE
--- NOTE | 2019-11-03 05:31 | ECWPNPC ---
PATIENT NAME: JOI MCCLAIN : 1965 GENDER: FEMALE VISIT DATE: 10/15/2019 DISCHARGE DATE: 10/15/19 1425 VISIT LOCKED DATE TIME: PHYSICIAN: ELHAM DUDLEY RESOURCE: ELHAM DUDLEY REASON FOR APPOINTMENT 1. POST PROC HISTORY OF PRESENT ILLNESS HISTORY OF PRESENT ILLNESS: HERE FOR POST PROCEDURE F/U.HAD L5/S1 LESI ON 09/29/19.REPORTS 1 WEEK IMPROVEMENT IN PAIN THEN PAIN ABRUPTLY RETURNS.CHIEF AREA OF CONCERN FOR PATIENT TODAY IS RIGHT HIP PAIN.THIS IS A CHRONIC ISSUE THAT HAS GOTTEN WORSE OVER THE PAST FEW MONTHS.HAS RESPONDED WELL TO TROCHANTERIC BURSAL STEROID INJECTIONS IN THE PAST.RATING PAIN VAS 8/10. PAIN THE PATIENT DESCRIBES THE PAIN... FALL RISK SCREENING: SCREENING :NO FALLS REPORTED IN THE LAST YEAR CURRENT MEDICATIONS TAKING ZOFRAN 4MG TABLET 2 TABLETS ORALLY BID PRN TAKING MORPHINE SULFATE 15 MG TABLET 1 TAB ORALLY Q6H PRN MDD4 TAKING GABAPENTIN 300 MG CAPSULE 1 ORALLY SHE TAKES 1 IN A.M., 1 AT NOON, 1 IN AFTERNOON, 1 IN THE EVENING AND 2 AT HS TAKING CELECOXIB 200 MG CAPSULE TAKE ONE CAPSULE BY MOUTH EVERY DAY WITH FOOD ORAL DAILY TAKING BACLOFEN 20 MG TABLET 1 TABLET ORALLY 1 Q6H QID TAKING CYMBALTA 60 MG CAPSULE DELAYED RELEASE PARTICLES 1 CAPSULE ORALLY ONCE A DAY TAKING OMEPRAZOLE 40MG CAPSULE DELAYED RELEASE TAKE ONE CAPSULE BY MOUTH DAILY TAKING IMITREX 50 MG TABLET 1 TABLET NEEDED ONE TIME, MAY REPEAT IN 2 HOURS IF HEADACHE STILL PRESENT, MDD 2 ORALLY DIRECTED TAKING ATORVASTATIN CALCIUM 10MG TABLET 1 TABLET ORALLY ONCE A DAY TAKING ERGOCALCIFEROL 70505 UNIT CAPSULE 1 CAPSULE ORALLY ONCE A WEEK TAKING HYDROCHLOROTHIAZIDE 12.5MG TABLET 1 TABLET ORALLY ONCE A DAY TAKING HYDROXYZINE HCL 50 MG TABLET 1 TABLET NEEDED ORALLY BEFORE BED NOT-TAKING CYMBALTA 30 MG CAPSULE DELAYED RELEASE PARTICLES 1 CAPSULE ORALLY DAILY NOT-TAKING LINZESS 145MCG CAPSULE 1 CAPSULE ORALLY ONCE A DAY NEEDED NOT-TAKING CLONIDINE HCL 0.1 MG TABLET 1 TABLET AT BEDTIME ORALLY ONCE A DAY MEDICATION LIST REVIEWED AND RECONCILED WITH THE PATIENT PAST MEDICAL HISTORY DEPRESSION HYPERTENSION HYPERLIPIDEMIA INSOMNIA IBS REFLUX CHRONIC BACK PAIN ATHRITIS IN BACK BILATERAL HIP BURSITIS, RIGHT > LEFT ALLERGIES PENICILLIN (FOR ALLERGIES USE ONLY): HIVES - ALLERGY ANCEF: HIVES - ALLERGY STRAWBERRIES/MANGOS: SEVERE HIVES, ITCHING - ALLERGY SURGICAL HISTORY BACK SURGERY 2009 GALL BLADDER 1988 HYSTERECTOMY 1993 LEFT BREAST BIOPSY AGE 14 RIGHT BREAST BIOPSY 2003 FAMILY HISTORY FATHER: , DIAGNOSED WITH UNSPECIFIED HEART DISEASE MOTHER: , OTHER MALIGNANT NEOPLASM OF UNSPECIFIED SITE, OTHER SPECIFIED CONDITIONS INFLUENCING HEALTH STATUS, UNSPECIFIED HEART DISEASE, UNSPECIFIED CEREBRAL ARTERY OCCLUSION WITH CEREBRAL INFARCTION MOTHER-ALZHEIMER\NMOTHER,AUNT,GRANDMOTHER ALL HAD BREAST CA. SOCIAL HISTORY GENERAL: TOBACCO USE ARE YOU A:CURRENT SMOKER ARE YOU INTERESTED IN QUITTING?NOT READY TO QUIT COUNSELED THE PATIENT ON SMOKING EFFECTS, EDUCATION [id number]/27/2019 HOW MANY CIGARETTES A DAY DO YOU SMOKE?6-10 HOW SOON AFTER YOU WAKE UP DO YOU SMOKE YOUR FIRST CIGARETTE?6-30 MIN HOW OFTEN DO YOU SMOKE CIGARETTES?EVERY DAY PATIENT COUNSELED ON THE DANGERS OF TOBACCO USE AND URGED TO QUIT:09/21/2019 ADDITIONAL FINDINGS: TOBACCO USER NONE SMOKING CESSATION INFORMATION GIVEN09/08/2019 VAPORNO E-CIGARETTENO HIV / HEP-C SCREENING HIV TEST OFFERED TO PATIENT:YES DATE OFFERED:09/06/2019 CONSENT ON FILE TEST ACCEPTED:NO HEP-C TEST OFFERED TO PATIENT:YES DATE OFFERED:09/06/2019 CONSENT ON FILE REASON:PATIENT DECLINED TEST ACCEPTED:NO REASON:PATIENT DECLINED BROCHURE PROVIDED TO PATIENTNO EDUCATION LEVEL OF EDUCATION:FINISHED HIGH SCHOOL 11TH GRADE DIET: REGULAR. LANGUAGE YAKUT. DOMESTIC VIOLENCE DO YOU FEEL SAFE IN YOUR ENVIRONMENT?YES BMI CARE GOAL FOLLOW-UP ABOVE NORMAL BMI FOLLOW-UPDIETARY MANAGEMENT EDUCATION, GUIDANCE, AND COUNSELING RECREATIONAL DRUG USE DRUG USE?NO LEARNING BARRIERS / SPECIAL NEEDS CHANGE FROM LAST VISIT?NO 09/30/2019 BARRIERS TO LEARNING?NO HEARING IMPAIRED?NO VISION IMPAIRED?YES COGNITIVELY IMPAIRED?NO :CORRECTIVE LENSES READING READINESS TO LEARN?YES LEARNING PREFERENCES?NO LEARNING CAPABILITIES PRESENT?YES EMOTIONAL BARRIERS?NO SPECIAL DEVICES?NO WALL SCRAPER NEEDED?NO PAIN CLINIC PFS, CLERGY, PUBLIC HEALTH REFERRALS PFS REFERRAL NEEDED?NO CLERGY REFERRAL NEEDED?NO PUBLIC HEALTH REFERRAL NEEDED?NO WAS THE PROVIDER NOTIFIED OF ANY PERTINENT INFO? N/A HAS THE PATIENT BEEN EDUCATED REGARDING HIS/HER PLAN OF CARE?YES HAS THE PATIENT BEEN EDUCATED REGARDING PAIN, THE RISK FOR PAIN, THE IMPORTANCE OF EFFECTIVE PAIN MANAGEMENT, AND THE PAIN ASSESSMENT PROCESS?YES LATEX QUESTIONNAIRE LATEX ALLERGY : HAVE YOU EVER DEVELOPED ANY TYPE OF REACTION AFTER HANDLING LATEX PRODUCTS SUCH RUBBER GLOVES, CONDOMS, DIAPHRAGMS, BALLOONS, SOCKS, OR UNDERWEAR?NO LATEX ALLERGY : HAVE YOU EVER DEVELOPED ANY TYPE OF REACTION DURING OR AFTER DENTAL APPOINTMENT, VAGINAL/RECTAL EXAMINATION, SURGICAL PROCEDURE, OR ANY OTHER EXPOSURE?NO DATE ASKED : 09/21/2019 LATEX RISK : HAVE YOU EVER HAD ANY DIFFICULTY BREATHING OR HIVES AFTER EATING OR HANDLING ANY FRUITS, OR VEGETABLES; SUCH KIWI, BANANAS, STONE FRUITS, OR CHESTNUTSYES - PLEASE INDICATE : MANGOS LATEX RISK : DO YOU HAVE A PREVIOUS PERSONAL HISTORY OF MORE THAN NINE SURGERIES, SPINA BIFIDA, OR REPEATED CATHERIZATIONS? NO LATEX RISK : ARE YOU FREQUENTLY EXPOSED TO LATEX PRODUCTS IN YOUR OCCUPATION?NO CAFFEINE CAFFEINE USE?YES COFFEE,DIET PEPSI ADVANCE DIRECTIVE ADVANCE DIRECTIVE DISCUSSED WITH PATIENT:YES PT DOES NOT HAVE ANY ADVANCED DIRECTIVES AND SHE DECLINES INFORMATION ON HCP AT THIS TIME. FAITH [id number] RESTORATIONISM MARITAL STATUS: . ALCOHOL SCREENING DID YOU HAVE A DRINK CONTAINING ALCOHOL IN THE PAST YEAR?NO POINTS0 INTERPRETATIONNEGATIVE SEXUAL HX HAD SEX IN THE LAST 12 MONTHS (VAGINAL, ORAL, OR ANAL)?YES WITHMEN ONLY HAVE YOU EVER HAD AN STD?NO THIS PATIENT LIVES AT HOME WITH HER AND GRAND-DAUGHTER, (WHOM SHE INTENDS TO ADOPT). SHE SLEEPS OKAY ONLY. SHE FRACTURED RIGHT ELBOW, RIGHT CHEEK FRACTURE, AND LEFT WRIST IN PAST. NO HISTORY OF AN EATING DISORDER. SHE DENIES HISTORY OF PHYSICAL/SEXUAL ABUSE. SHE WEARS SEAT BELTS. SHE IS CURRENT WITH IMMUNIZATIONS AND TETANUS. SHE IS UP TO DATE WITH DENTAL AND EYE EXAMINATIONS. SHE TAKES NO VITAMINS OR CALCIUM.03/17/18 1105 REVIEWED WITH PT. AD 08/27/18 1208 REVIEWED WITH PT. BV01/05 1000 PRE-PROCEDURE SCREENING CALL DONE. AD10/15/18 REVIEWED WITH PT. AD05/11/19 1105 REVIEWED WITH PT BVREVIEWED WITH PT 09/30/18 1048 BV. HOSPITALIZATION/MAJOR DIAGNOSTIC PROCEDURE FOR SURGERIES CHILD X 2 REVIEW OF SYSTEMS REVIEWED BY: PROVIDER: ELHAM JEREZ . CONSTITUTIONAL: ANY CHANGE IN YOUR MEDICAL CONDITION? NO . CHILLS NO . FEVER NO . INFECTION: DO YOU HAVE NEW INFECTIONS? NO . DO YOU HAVE HISTORY OF MRSA? NO . MUSCULOSKELETAL: ANY NEW PATTERNS OF PAIN OR NUMBNESS? NO . GASTROENTEROLOGY: ANY NEW CHANGE IN BOWEL CONTROL? NO . GENITOURINARY: ANY NEW CHANGE IN BLADDER CONTROL? NO . IS THERE A CHANCE YOU COULD BE ? NO . HEMATOLOGY/LYMPH: DO YOU TAKE ANY BLOOD THINNERS? (FOR EXAMPLE- COUMADIN, PLAVIX, AGGRENOX, PLATEL, PRADAXA, OR XARELTO) NO . WHEN WAS YOUR LAST DOSE? DATE: TIME: . NEUROLOGY: HAVE YOU FALLEN IN THE PAST 12 MONTHS? NO . ANY NEW EXTREMITY NUMBNESS OR WEAKNESS? NO . CARDIOLOGY: DO YOU HAVE A PACEMAKER OR DEFIBRILLATOR? NO . RESPIRATORY: HAVE YOU BEEN SICK IN THE PAST WEEK? NO . FEVER NO . FLU LIKE SYMPTOMS? NO . COUGH NO . INTEGUMENTARY: DO YOU HAVE ANY RASHES OR OPEN SORES? NO . ALLERGIC/IMMUNO: ARE YOU ALLERGIC TO IV DYE? NO . ANY NEW ALLERGIES? NO . PSYCHIATRIC: DO YOU HAVE THOUGHTS OF HURTING YOURSELF OR SOMEONE ELSE? NO . ARE YOU ABUSED, NEGLECTED, OR IN AN UNSAFE ENVIRONMENT? NO . ENDOCRINOLOGY: ARE YOU DIABETIC? NO . OTHER: DO YOU NEED ANY PRESCRIPTIONS? MORPHINE . IF YES, PLEASE LIST: ____ . ANY NEW PROBLEMS WITH YOUR MEDICATIONS? NO . WHEN DID YOU LAST EAT? ____ . WHEN DID YOU LAST DRINK? ____ . WHAT DID YOU LAST DRINK? ____ . NAME OF PERSON DRIVING YOU HOME? ____ . DO YOU HAVE ANY OTHER QUESTIONS OR CONCERNS NO . VITAL SIGNS WT 148 LBS, HT 63 IN, BMI 26.21 INDEX, BP 154/68 MM HG, HR 91 /MIN, RR 18 /MIN, TEMP 97.5 F, OXYGEN SAT % 96%, NA INITIALS SC 13:21, REVIEWED BY: EM. EXAMINATION GENERAL EXAMINATION: GENERAL ALERT,NO DISTRESS . PSYCH AFFECT NORMAL . LUNGS: LUNG SOUNDS ARE CLEAR . HEART: HEART RATE REGULAR . MUSCULOSKELETAL: MST 5/5 BILAT. LOWER EXTREMITIES RIGHT HIP-TENDER WITH PALPATION. DIAGNOSTIC TESTS REVIEWEDCT L/S SINE-04/02/19. ASSESSMENTS INTERVERTEBRAL DISC DISORDERS WITH RADICULOPATHY, LUMBOSACRAL REGION - M51.17 (PRIMARY) NEUROPATHY - G62.9 TROCHANTERIC BURSITIS, RIGHT HIP - M70.61 TREATMENT INTERVERTEBRAL DISC DISORDERS WITH RADICULOPATHY, LUMBOSACRAL REGION REFILL MORPHINE SULFATE TABLET, 15 MG, 1 TAB, ORALLY, Q6H PRN MDD4, 30 DAY(S), 120, REFILLS 0 DECREASE GABAPENTIN CAPSULE, 300 MG, 1, ORALLY, 1 IN AM,1 MIDDAY AND 2 AT HS, 30 DAYS, 120, REFILLS 2 CONTINUE CELECOXIB CAPSULE, 200 MG, TAKE ONE CAPSULE BY MOUTH EVERY DAY WITH FOOD, ORAL, DAILY CONTINUE BACLOFEN TABLET, 20 MG, 1 TABLET, ORALLY, 1 Q6H QID CONTINUE CYMBALTA CAPSULE DELAYED RELEASE PARTICLES, 60 MG, 1 CAPSULE, ORALLY, ONCE A DAY START COLACE CAPSULE, 100 MG, 2 CAP, ORALLY, 3X DAILY, 30 DAY(S), 180, REFILLS 2 NOTES: BRIEFLY DISCUSSED POSSIBILITY OF DCS TRIAL INSURANCE PERMITING AND DCS INFO WAS SENT HOME WITH PATIENT.SHE VOICES DESIRE TO BE OFF CHRONIC PAIN MEDICATION AND BASICALLY FEELS ITS INEFFECTIVE.I FEEL SHE MORE THAN LIKELY IS TOLERANT SHE HAS BEEN ON CHRONIC NARCOTIC THERAPY FOR YEARS.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 BRINGS IN MEDICATIONS WHICH IS APPROPRIATE FOR WHAT WAS DISPENSED. RECENT URINE TOXICOLOGY REVIEWED. NO UNAUTHORIZED MEDICATIONS. NO ILLICIT SUBSTANCES AND PRESCRIBED MEDICATIONS WERE PRESENT. URINE TOX TODAY, RISKS OF NARCOTIC/OPIOD MEDICATIONS INCLUDES BUT IS NOT LIMITED TO RISK OF DEPENDANCE/DEVELOPMENT OF ADDICTION, MOOD DISTURBANCE AND DEPRESSION, OSTEOPOROSIS, HORMONAL AND LABIDAL CHANGES, RESPIRATORY DEPRESSION AND . PATIENT IS ADVISED NOT TO DRIVE OR DRINK ALCOHOL WHILE ON THESE MEDICATIONS. PROCEDURE CODES FA211 ESTABILISHED PATIENT [facility] FACILITY CHARGE DISPOSITION & COMMUNICATION FOLLOW UP POST Gabriela ALEXIS (REASON: RIGHT TROCHANTERIC BURSAL INJECTION) ELECTRONICALLY SIGNED BY MERI HARRY ON 11/02/2019 AT 01:55 PM EST DISCLAIMER : THIS IS A VISIT SUMMARY EXTRACTED FROM THE [employer] [facility] CHART. IT IS NOT A COPY OF THE [facility] PROGRESS NOTE. MTDD
== END ==
LOC: M PAIN 13:00
PROVIDERS: ATTEND Nurse Practitioner Family
DX: M51.17 Intervertebral disc disorders with radiculopathy, lumbosacral region (principal); G62.9 Polyneuropathy, unspecified; M70.61 Trochanteric bursitis, right hip

== ENCOUNTER 2019-10-21 14:09 | Inpatient (IN) | payer OTHER ==
[~2019-10-21] VITALS: Ht 160 cm; Wt 66.3 kg
[~2019-10-21 14:09] MED LIST changes: -ATOR1TAB19 PO; -BACL1TAB9 PO; -COLA100C5 PO; -DULO1CAP6 PO; -HYDR12.55 PO; -HYDR50TA70 PO; +OMEP-172 PO; -OMEP-221 PO; -OMEP1CAP73 PO; -VITA50005 PO
[2019-10-21 16:45] VITALS: BP 126/80
[2019-10-21] MEDS ORDERED: ALBUTEROL SULFATE 2.5 MG/0.5 ML INH NEB SOLN NEB PRN (17:00)
[2019-10-21 17:28] LABS: HEMATOCRIT 45.5 % (36.0-47.0); HEMOGLOBIN 15.1 g/dl (12.0-15.5); MEAN CORPUSCULAR HEMOGLOBIN 31.3 pg (27.0-33.0); MEAN CORPUSCULAR HGB CONC 33.2 g/dl (32.0-36.5); MEAN CORPUSCULAR VOLUME 94.2 fl (80.0-96.0); PLATELET COUNT, AUTOMATED 265 10^3/uL (150-450); RED BLOOD COUNT 4.83 10^6/uL (4.00-5.40); WHITE BLOOD COUNT 13.4 10^3/uL (4.0-10.0)
[2019-10-21] MEDS ORDERED: HYDR50TA70 PO (17:33)
[2019-10-21] MEDS ORDERED: DULO1CAP6 PO (17:33)
[2019-10-21] MEDS ORDERED: OMEP-221 PO (17:33)
[2019-10-21] MEDS ORDERED: HYDR12.55 PO (17:33)
[2019-10-21] MEDS ORDERED: ATOR1TAB19 PO (17:33)
[2019-10-21] MEDS ORDERED: BACL1TAB9 PO (17:33)
[2019-10-21] MEDS ORDERED: COLA100C5 PO (17:33)
[2019-10-21] MEDS ORDERED: VITA50005 PO (17:33)
[2019-10-21] MEDS ORDERED: DOCUSATE SODIUM 100 MG CAP PO PRN (17:45)
[2019-10-21] MEDS ORDERED: ONDANSETRON 4 MG TAB (S0181) PO PRN (17:45)
[2019-10-21] MEDS ORDERED: SUMAtriptan SUCCINATE 25 MG TAB PO PRN (17:45)
[2019-10-21] MEDS ORDERED: hydrOXYzine 50 MG TAB PO PRN (17:45)
[2019-10-21 17:46] LABS: ALBUMIN 3.3 GM/DL (3.2-5.2); ALT/SGPT 16 U/L (12-78); BILIRUBIN,TOTAL 0.6 MG/DL (0.2-1.0); BLOOD UREA NITROGEN 7 MG/DL (7-18); CALCIUM LEVEL 8.7 MG/DL (8.5-10.1); CARBON DIOXIDE LEVEL 28 MEQ/L (21-32); CHLORIDE LEVEL 106 MEQ/L (98-107); CREATININE FOR GFR 0.62 MG/DL (0.55-1.30); GLOMERULAR FILTRATION RATE > 60.0 (>51); GLUCOSE, FASTING 95 MG/DL (70-100); PHOSPHORUS LEVEL 3.6 MG/DL (2.5-4.9); SODIUM LEVEL 139 MEQ/L (136-145); TOTAL PROTEIN 6.4 GM/DL (6.4-8.2)
--- NOTE | 2019-10-21 18:13 | HPEPDOC ---
General Date of Admission Oct 21, 2019 at 16:29 Date of Service: Oct 21, 2019 Attending Physician: HILLARY MURGUIA MD Chief Complaint The patient is a 54-year-old female admitted with a reason for visit of Hypoxia. Source: Patient Exam Limitations: No limitations Timing/Duration: 24 hours Severity: Moderate Associated Symptoms: Dizziness History of Present Illness 63 yo W with HTN, HLD, GERD, COPD, chronic back pain, depression, anxiety, current smoker who presented to [facility] after she felt dizzy while sitting on the toilet and swayed her head and hit the posting without any LOC and when she touched her head noticed bleeding and called out to her family that took her to the [facility] ED. At [facility] she told them that she had been feeling poorly due to a cold and had felt dizzy this morning and bumped her head. She was otherwise normotensive and afebrile but was noted to be hypoxemic to 88% on room air and they placed her on a non-rebreather mask. From there she had a non con head CT that showed no acute pathology or bleeding. Initial work up at [facility] showed normal LFTS, unrevealing CBC and BMP. She had a CTA per PE protocol that showed no PE, pneumonia, effusions or pulmonary congestion but multiple nodules were noted. On noting the nodules, the team had a CT A/P that per phone signout showed a large adrenal mass. She had a machado placed, was kept on non rebreather mask and request was made to transfer her to [facility] ICU for hypoxia. On arrival to [facility] ICU, she was hemodynamically stable, afebrile and on non-rebreather mask. On evaluation by nursing, she was downgraded to a nasal canula with immediate de-escalation to nasal canula 2L with a saturation of 94%. Given her 30 year smoking history and history of COPD, the goal saturation was set 88-92% with further weaning of her oxygen. Her machado was removed and she was de-escalated to med-surg, after she denied any more episodes of dizziness, and on exam was grossly non focal. In the mean time, the team will check a respiratory panel and place her on scheduled duonebs and PRN albuterol for SOB or wheezing. Home Medications Scheduled Atorvastatin Calcium (Atorvastatin Calcium) 10 Mg Tablet, 10 MG PO QHS, (Rep orted) Baclofen (Baclofen) 20 Mg Tablet, 20 MG PO Q6H, (Reported) Celecoxib (Celecoxib) 200 Mg Capsule, 200 MG PO DAILY, (Reported) Duloxetine Hcl (Duloxetine HCl) 60 Mg Capsule.dr, 60 MG PO QHS, (Reported) Ergocalciferol (Vitamin D2) (Vitamin D2) 50,000 Units Cap, 50,000 UNITS PO Q WEEK, (Reported) SUNDAYS Gabapentin (Gabapentin) 300 Mg Cap, 300 MG PO TID, (Reported) Hydrochlorothiazide (Hydrochlorothiazide) 12.5 Mg Tablet, 12.5 MG PO DAILY, (Reported) Omeprazole (Omeprazole) 40 Mg Capsule.dr, 40 MG PO QHS, (Reported) Scheduled PRN Docusate Sodium (Colace) 100 Mg Capsule, 200 MG PO BID PRN for CONSTIPATION, (Reported) Hydroxyzine HCl (Hydroxyzine HCl) 50 Mg Tablet, 50 MG PO QHS PRN for SLEEP, (Reported) Morphine Sulfate (Morphine Sulfate) 15 Mg Tab, 15 MG PO Q6H PRN for PAIN, (Reported) Ondansetron HCl (Zofran) 4 Mg Tablet, 8 MG PO BID PRN for NAUSEA OR VOMITING, (Reported) Sumatriptan Succinate (Imitrex) 50 Mg Tablet, 50 MG PO ASDIRECTED PRN for MIGRAINE, (Reported) Allergies Coded Allergies: Cephalosporins (Verified Allergy, Severe, HIVES/SOB, 10/21/19) Penicillins (Verified Allergy, Severe, AMPICILLIN-HIVES/SOB, 10/21/19) Tetracyclines (Verified Allergy, Severe, DOXYCYCLINE-HIVES/SOB, 10/21/19) erythromycin base (Verified Allergy, Severe, HIVES/SOB, 10/21/19) strawberry (Verified Allergy, Severe, HIVES, 10/21/19) [place] (Verified Allergy, Unknown, HIVES, 10/21/19) Past Medical History Medical History HTN, HLD, GERD, COPD, chronic back pain, depression, anxiety, current smoker Surgical History Hysterectomy bilateral breast biopsies back surgeries Family History Significant Family History: No pertinent family hx Social History * Smoker: current smoker (1/2 pack per day for >30 years) Alcohol: Denies Drugs: denies Recent Travel/Sick Contacts: Denies: Recent travel, Recent sick contacts Psychosocial History: Anxiety, Depression Unemployed, lives at home with her , two adult children and a grandchild A-FIB/CHADSVASC A-FIB History Current/History of A-Fib/PAF?: No Age/Risk Factor Scoring CHADSVASC: CHADSVASC Response (Comments) Value Age Risk Factor Age < 65 years old 0 Gender Risk Factor Female 1 Hx of CHF No 0 Hx of HTN Yes 1 Hx of Stroke/TIA/or VTE No 0 Hx of Diabetes No 0 Hx of Vascular Disease No 0 Total 2 Treatment Treatment ordered: NONE Reason Anticoagulant not given: Not indicated/[id number] Review of Systems Constitutional: Denies: Chills, Fever, Night Sweats, Weight Loss (directly asked about weight loss and B symptoms which she expressly denied.) Eyes: Denies: Pain, Vision change ENT: Reports: Sinus Congestion; Denies: Head Aches, Ear Pain, Dysphagia Skin: Denies: Rash, Lesions, Breakdown Pulmonary: Reports: Cough; Denies: Dyspnea, Pleuritic Chest Pain Cardiovascular: Denies: Chest Pain, Palpitations, Orthopnea, Paroxysmal Noc. Dyspnea, Lt Headedness Gastrointestinal: Denies: Nausea, Vomiting, Abdominal Pain, Diarrhea Genitourinary: Denies: Dysuria, Frequency, Incontinence, Retention Hematologic: Denies: Bruising, Bleeding Excessively Endocrine: Denies: Polydipsia, Polyphagia, Polyuria, Heat Intolerance, Cold Intolerance, Other Endocrine Sx Musculoskeletal: Reports: Back Pain (chronic); Denies: Neck Pain, Joint Pain, Muscle Pain, Spasms Neurological: Reports: Other Symptoms (has a transiet dizziness this morning); Denies: Weakness, Numbness, Change in speech, Confusion Psych: Reports: Mood Normal, Anxiety, Depression; Denies: Memory Issues Physical Examination General Exam: Positive: Alert, No Acute Distress Eye Exam: Positive: PERRLA, Conjunctiva & lids normal, EOMI; Negative: Sclera icteric ENT Exam: Positive: Atraumatic, Mucous membr. moist/pink, Pharynx Normal Neck Exam: Positive: Supple; Negative: JVD, thyromegaly Chest Exam: Positive: Clear to auscultation, Normal air movement Heart Exam: Positive: Rate Normal, Regular Rhythm, Normal S1, Normal S2; Negative: Murmurs, Rubs Telemetry: Positive: No significant arrhythmia Abdomen Exam: Positive: Normal bowel sounds, Soft; Negative: Tenderness, Hepatospenomegaly Extremity Exam: Positive: Normal pulses; Negative: Clubbing, Cyanosis, Edema Skin Exam: Positive: Nl turgor and temperature; Negative: Breakdown, Lesion Neuro Exam: Positive: Normal Gait, Normal Speech, Strength at 5/5 X4 ext, Cranial Nerves 3-12 NL, Reflexes 2+ Psych Exam: Positive: Mental status NL, Mood NL, Oriented x 3 Vital Signs Vital Signs Date Time Temp Pulse Resp B/P (MAP) Pulse Ox O2 Delivery O2 Flow Rate FiO2 10/21/19 17:00 93 Nasal Cannula 4.0 10/21/19 16:45 98.9 102 20 126/80 Laboratory Data Labs 24H Laboratory Tests 2 10/21/19 17:12: Nucleated Red Blood Cells % (auto) 0.0, Anion Gap 5L, Glomerular Filtration Rate > 60.0, Calcium Level 8.7, Phosphorus Level 3.6, Magnesium Level 2.0, Total Bilirubin 0.6, Aspartate Amino Transf (AST/SGOT) 18, Alanine Aminotransferase (ALT/SGPT) 16, Alkaline Phosphatase 78, Total Protein 6.4, Albumin 3.3, Albumin/Globulin Ratio 1.06 CBC/BMP Laboratory Tests 10/21/19 17:12 Assessment/Plan 63 yo W with HTN, HLD, GERD, COPD, chronic back pain, depression, anxiety, current smoker who presented to [facility] after a dizzy spell while sitting on the toilet during which she hit her head and suffered a small laceration without any LOC, in the setting of ongoing URI symptoms and was found to have pulmonary nodules and an adrenal mass, who was now transferred to [facility] for hypoxemia. Hypoxemia to 88%: possible that it is her baseline as she is a chronic smoker never had a documented read <88%. However with ongoing URI symptoms possible COPD exacerbation, with CT at [facility] without evidence of an infectious process and no clot. -monitor -continue to wean supplemental oxygen -Duonebs Q4H, Q6H PRN albuterol nebs -respiratory panel, sputum culture and procalcitonin -Transfer out of ICU to [facility] Transient dizziness: possibly 2/2 dehydration in the setting of ongoing URI with poor PO -CT head was unrevealing -resolved -will monitor for now HTN: -continue home meds HLD: -continue home meds Chronic back pain: -continue home regimen Depression: -continue home meds Smoking: -counselled about the health effects of smoking and offered a patch, which she agreed to, so will give nicotine replacement therapy for now Pulmonary nodules and adenal mass: -will need to have radiology read inhouse and will consult, probably pulm for biopsy, will await review of imaging yet for now -made patient aware of these findings and that we are further investigating them DVT ppx: heparin Diet: Regular Dispo: med surg Plan / VTE VTE Prophylaxis Ordered?: Yes HILLARY MURGUIA MD Oct 21, 2019 18:13
[2019-10-21] MEDS: BACLOFEN 10 MG TAB PO SCH ×2 (18:26→23:50)
[2019-10-21] MEDS ORDERED: PILL CUTTER 1 EACH XX PRN (18:45)
[2019-10-21 19:20] VITALS: BP 145/73
[2019-10-21] MEDS: IPRATROPIUM 0.5MG/ALBUTEROL 2.5MG INH SOL UD 3ML (DUONEB)(J7620) NEB SCH ×2 (20:00→23:17)
[2019-10-21] MEDS: MORPHINE 30 MG TAB **MSIR PO PRN (20:33)
[2019-10-21] MEDS ORDERED: ATORVASTATIN 10 MG TAB PO SCH (21:00)
[2019-10-21] MEDS ORDERED: OMEPRAZOLE 20 MG CAP PO SCH (21:00)
[2019-10-21] MEDS ORDERED: DULoxetine 30 MG CAP (CYMBALTA) PO SCH (21:00)
[2019-10-21] MEDS: GABAPENTIN 300 MG CAP PO SCH (22:15)
[2019-10-21] MEDS: HEPARIN SOD (PORCINE) 5000 UNITS/ML VIAL SC SCH (22:15)
[2019-10-22] MEDS: IPRATROPIUM 0.5MG/ALBUTEROL 2.5MG INH SOL UD 3ML (DUONEB)(J7620) NEB SCH ×3 (04:00→11:43)
[2019-10-22 05:40] LABS: HEMATOCRIT 42.2 % (36.0-47.0); HEMOGLOBIN 13.5 g/dl (12.0-15.5); MEAN CORPUSCULAR HEMOGLOBIN 30.5 pg (27.0-33.0); MEAN CORPUSCULAR VOLUME 95.3 fl (80.0-96.0); PLATELET COUNT, AUTOMATED 257 10^3/uL (150-450); RED BLOOD COUNT 4.43 10^6/uL (4.00-5.40); WHITE BLOOD COUNT 13.9 10^3/uL (4.0-10.0)
[2019-10-22 06:00] VITALS: BP 130/77
[2019-10-22 06:06] LABS: BLOOD UREA NITROGEN 9 MG/DL (7-18); CALCIUM LEVEL 8.9 MG/DL (8.5-10.1); CARBON DIOXIDE LEVEL 27 MEQ/L (21-32); CHLORIDE LEVEL 102 MEQ/L (98-107); CREATININE FOR GFR 0.59 MG/DL (0.55-1.30); GLOMERULAR FILTRATION RATE > 60.0 (>51); GLUCOSE, FASTING 102 MG/DL (70-100); POTASSIUM SERUM 3.2 MEQ/L (3.5-5.1); SODIUM LEVEL 136 MEQ/L (136-145)
[2019-10-22] MEDS: HEPARIN SOD (PORCINE) 5000 UNITS/ML VIAL SC SCH (06:13)
[2019-10-22] MEDS: BACLOFEN 10 MG TAB PO SCH ×2 (06:13→11:36)
[2019-10-22] MEDS ORDERED: POTASSIUM CHLORIDE 10 MEQ SR TABLET PO ONE (08:00)
[2019-10-22] MEDS: GABAPENTIN 300 MG CAP PO SCH (08:45)
[2019-10-22] MEDS: MORPHINE 30 MG TAB **MSIR PO PRN (08:54)
[2019-10-22] MEDS ORDERED: hydroCHLOROthiazide 12.5 MG CAPSULE PO SCH (09:00)
[2019-10-22] MEDS ORDERED: CelecoXIB (CeleBREX) 100 MG CAP PO SCH (09:00)
--- NOTE | 2019-10-22 11:58 | DS.PDOC ---
Discharge Summary General Date of Admission Oct 21, 2019 at 16:29 Date of Discharge 10/22/2019 Attending Physician: HILLARY MURGUIA MD Discharge Summary PROCEDURES PERFORMED DURING STAY: None ADMITTING DIAGNOSES: 1. Hypoxia DISCHARGE DIAGNOSES: 1. Viral upper respiratory infection 2. HTN 3. HLD 4. GERD 5. COPD 6. Chronic back pain 7. Depression 8. Anxiety 10. Nicotine addiction, current cigarette smoking COMPLICATIONS/CHIEF COMPLAINT: Hypoxia. HISTORY OF PRESENT ILLNESS: 63 yo W with HTN, HLD, GERD, COPD, chronic back pain, depression, anxiety, current smoker who presented to [facility] after she felt dizzy while sitting on the toilet and swayed her head and hit the posting without any LOC and when she touched her head noticed bleeding and called out to her family that took her to the [facility] ED. HOSPITAL COURSE: At [facility] she told them that she had been feeling poorly due to a cold and had felt dizzy this morning and bumped her head. She was otherwise no rmotensive and afebrile but was noted to be hypoxemic to 88% on room air and they placed her on a non-rebreather mask. From there she had a non con head CT that showed no acute pathology or bleeding. Initial work up at [facility] showed normal LFTS, unrevealing CBC and BMP. She had a CTA per PE protocol that showed no PE, pneumonia, effusions or pulmonary congestion but nodules were noted. On noting the nodules, the team had a CT A/P that per phone signout showed a large adrenal mass, size not specified? She had a machado placed, was kept on non rebreather mask and request was made to transfer her to [facility] ICU for hypoxia. On arrival to [facility] ICU, she was hemodynamically stable, afebrile and on non-rebreather mask. On evaluation by nursing, she was downgraded to a nasal canula with immediate de-escalation to nasal canula 2L with a saturation of 94%. Given her 30 year smoking history and history of COPD, the goal saturation was set 88-92% with further weaning of her oxygen to room air by the next morning. Her machado was removed and she was de-escalated to med-surg, after she denied any more episodes of dizziness, and on exam was grossly non focal. In the mean time, the team sent a respiratory panel and place her on scheduled duonebs and PRN albuterol for SOB or wheezing. Unfortunately we did not receive the imaging disks from [facility] upon her transfer. I did however look back at her imaging here at [facility] and based on last imaging in 2014 she had a noted 1.2cm L stable benign adrenal adenoma ans well as a noted R lung base 7mm pulmonary nodule. Based on this information, I recommend that she follows with her PCP shortly to request and review the [facility] imaging to review any interval changes and proceed with appropriate testing if indicated. This was deferred to the outpatient setting as she denied, weight loss, B symptoms, abdominal pain, and her transient dizziness had resolved and her URI was resolving and she was taking good PO while breathing comfortably on room air. DISCHARGE MEDICATIONS: Please see below. ALLERGIES: Please see below. PHYSICAL EXAMINATION ON DISCHARGE: VITAL SIGNS: Please see below. General: NAD, pleasant, cooperative, requesting to be discharged home HEENT: NCAT, PERRLA, EOMI, MMM, anicteric, non injected, clear posterior oropharynx without exudates or erythema Neck: Supple, no noted adenopathy and no JVD Pulm: CTAB, breathing comfortably on room air without wheezing or crackles Cardiac: RRR, no mrg Ext: no LE edema, WWP, good pedal pulses Neuro: No facial droops, Cranial nerves 2-12 grossly intact, strength 5/5 all extremities, normal gait Psych: AOx3 LABORATORY DATA: Please see below. IMAGING: No new imaging done at [facility]. Had CT head, CTA chest, CT A/P at [facility] per report. Unfortunately no data was transmitted or sent over with the physical chart. Will defer imaging findings to be reviewed and investigated with the PCP. PROGNOSIS: Good ACTIVITY: As tolerated DIET: Regular DISCHARGE PLAN: Home with close PCP follow up DISPOSITION: home DISCHARGE INSTRUCTIONS: 1. Please request your [facility] imaging records to be sent directly to your PCP's office so that your PCP may review them closely with you. ITEMS TO FOLLOWUP ON ON OUTPATIENT: 1. [facility] imaging DISCHARGE CONDITION: Stable TIME SPENT ON DISCHARGE: 40 minutes. Vital Signs/I&Os Vital Signs Date Time Temp Pulse Resp B/P (MAP) Pulse Ox O2 Delivery O2 Flow Rate FiO2 10/22/19 09:24 16 10/22/19 08:54 Nasal Cannula 1.0 10/22/19 06:00 97.3 84 130/77 (94) 90 l I&O- Last 24 Hours up to 6 AM 10/22/19 06:00 Intake Total 570 ml Output Total 1150 ml Balance -580 ml Laboratory Data Labs 24H Laboratory Tests 2 10/21/19 17:12: Nucleated Red Blood Cells % (auto) 0.0, Anion Gap 5L, Glomerular Filtration Rate > 60.0, Calcium Level 8.7, Phosphorus Level 3.6, Magnesium Level 2.0, Total Bilirubin 0.6, Aspartate Amino Transf (AST/SGOT) 18, Alanine Aminotransferase (ALT/SGPT) 16, Alkaline Phosphatase 78, Total Protein 6.4, Albumin 3.3, Albumin/Globulin Ratio 1.06 10/22/19 05:29: Nucleated Red Blood Cells % (auto) 0.0, Anion Gap 7L, Glomerular Filtration Rate > 60.0, Calcium Level 8.9 CBC/BMP Laboratory Tests 10/21/19 17:12 10/22/19 05:29 Microbiology Microbiology 10/22/19 Gram Stain - Final, Resulted 10/22/19 Sputum Culture, Resulted Pending Discharge Medications Scheduled Atorvastatin Calcium (Atorvastatin Calcium) 10 Mg Tablet, 10 MG PO QHS, (Reported) Baclofen (Baclofen) 20 Mg Tablet, 20 MG PO Q6H, (Reported) Celecoxib (Celecoxib) 200 Mg Capsule, 200 MG PO DAILY, (Reported) Duloxetine Hcl (Duloxetine HCl) 60 Mg Capsule.dr, 60 MG PO QHS, (Reported) Ergocalciferol (Vitamin D2) (Vitamin D2) 50,000 Units Cap, 50,000 UNITS PO QWEEK, (Reported) SUNDAYS Gabapentin (Gabapentin) 300 Mg Cap, 300 MG PO TID, (Reported) Hydrochlorothiazide (Hydrochlorothiazide) 12.5 Mg Tablet, 12.5 MG PO DAILY, (Reported) Omeprazole (Omeprazole) 40 Mg Capsule.dr, 40 MG PO QHS, (Reported) Scheduled PRN Docusate Sodium (Colace) 100 Mg Capsule, 200 MG PO BID PRN for CONSTIPATION, (Reported) Hydroxyzine HCl (Hydroxyzine HCl) 50 Mg Tablet, 50 MG PO QHS PRN for SLEEP, (Reported) Morphine Sulfate (Morphine Sulfate) 15 Mg Tab, 15 MG PO Q6H PRN for PAIN, (Reported) Ondansetron HCl (Zofran) 4 Mg Tablet, 8 MG PO BID PRN for NAUSEA OR VOMITING, (Reported) Sumatriptan Succinate (Imitrex) 50 Mg Tablet, 50 MG PO ASDIRECTED PRN for MIGRAINE, (Reported) Allergies Coded Allergies: Cephalosporins (Verified Allergy, Severe, HIVES/SOB, 10/21/19) Penicillins (Verified Allergy, Severe, AMPICILLIN-HIVES/SOB, 10/21/19) Tetracyclines (Verified Allergy, Severe, DOXYCYCLINE-HIVES/SOB, 10/21/19) erythromycin base (Verified Allergy, Severe, HIVES/SOB, 10/21/19) strawberry (Verified Allergy, Severe, HIVES, 10/21/19) [place] (Verified Allergy, Unknown, HIVES, 10/21/19) HILLARY MURGUIA MD Oct 22, 2019 11:58
[2019-10-24] MEDS ORDERED: VITAMIN D 50,000 UNITS CAPSULE (ERGOCALCIFEROL 1.25MG) PO SCH (09:00)
== END 2019-10-22 13:15 | disposition home or self-care (01) | DRG 113 ==
LOC: M ICU 16:29 → M MSPAV 19:15
PROVIDERS: ADMIT Internal Medicine; ATTEND Internal Medicine
DX: J06.9 Acute upper respiratory infection, unspecified (principal); I10 Essential (primary) hypertension; K21.9 Gastro-esophageal reflux disease without esophagitis; J44.9 Chronic obstructive pulmonary disease, unspecified; M54.5 Low back pain; F41.9 Anxiety disorder, unspecified; F32.9 Major depressive disorder, single episode, unspecified; F17.210 Nicotine dependence, cigarettes, uncomplicated; Z79.899 Other long term (current) drug therapy; Z88.0 Allergy status to penicillin; Z91.018 Allergy to other foods; Z88.1 Allergy status to other antibiotic agents

== ENCOUNTER → 2019-11-25 | Outpatient (CLI) | payer OTHER ==
[~2019-11-25] MED LIST changes: +ATOR1TAB19 PO; +BACL1TAB9 PO; +BUPIVACAINE HCL 0.25% 30 ML VIAL As Ordered ONE; +COLA100C5 PO; +DULO1CAP6 PO; +HYDR12.55 PO; +HYDR50TA70 PO; +ISOVUE-M 300 61% 15ML VIAL (Q9967) As Ordered ONE; +LIDOCAINE 1% SDV INJ 30 ML VIAL As Ordered ONE; -OMEP-172 PO; +OMEP-221 PO; +OMEP1CAP73 PO; +ONDANSETRON 4 MG ORAL DISINTEGRATING TAB (Q0162 PER 1MG) As Ordered ONE; +TRIAMCINOLONE ACETONIDE SUSP 40 MG/ML VIAL (J3301) As Ordered ONE; +VITA50005 PO; +diazePAM 5 MG TAB As Ordered ONE; +oxyCODONE 5MG TAB As Ordered ONE
--- NOTE | 2019-11-25 13:55 | REP ---
Right hip: Two views limited study. History: Procedural imaging. Injection procedure right femur for pain. 7 seconds of fluoroscopy time is reported. Findings: A sequence of two last image hold fluoroscopically obtained spot radiographs of the hip document needle position associated with injection procedure. Electronically Signed by Carlos Garcia MD 11/25/2019 01:46 P
--- NOTE | 2019-12-03 04:15 | ECWPNPC ---
PATIENT NAME: JOI MCCLAIN : 1965 GENDER: FEMALE VISIT DATE: 11/25/2019 DISCHARGE DATE: 11/25/19 1251 VISIT LOCKED DATE TIME: PHYSICIAN: STELLA ASHRAF MD RESOURCE: STELLA ASHRAF MD REASON FOR APPOINTMENT 1. RIGHT TROCHANTERIC BURSAL INJECTION HISTORY OF PRESENT ILLNESS HISTORY OF PRESENT ILLNESS: PAIN THE PATIENT DESCRIBES THE PAIN... FALL RISK SCREENING: SCREENING :NO FALLS REPORTED IN THE LAST YEAR CURRENT MEDICATIONS TAKING OMEPRAZOLE 40MG CAPSULE DELAYED RELEASE TAKE ONE CAPSULE BY MOUTH DAILY, NOTES: 11/24 2099 TAKING IMITREX 50 MG TABLET 1 TABLET NEEDED ONE TIME, MAY REPEAT IN 2 HOURS IF HEADACHE STILL PRESENT, MDD 2 ORALLY DIRECTED, NOTES: NONE RECENT TAKING ATORVASTATIN CALCIUM 10MG TABLET 1 TABLET ORALLY ONCE A DAY, NOTES: 11/24 2099 TAKING ERGOCALCIFEROL 41861 UNIT CAPSULE 1 CAPSULE ORALLY ONCE A WEEK, NOTES: 11/21 TAKING HYDROCHLOROTHIAZIDE 12.5MG TABLET 1 TABLET ORALLY ONCE A DAY, NOTES: 11/24 2099 TAKING HYDROXYZINE HCL 50 MG TABLET 1 TABLET NEEDED ORALLY BEFORE BED, NOTES: 11/24 2099 TAKING GABAPENTIN 300 MG CAPSULE 1 ORALLY 1 IN AM,1 MIDDAY AND 2 AT HS, NOTES: 11/24 2099 TAKING CELECOXIB 200 MG CAPSULE TAKE ONE CAPSULE BY MOUTH EVERY DAY WITH FOOD ORAL DAILY, NOTES: 11/24 2099 TAKING BACLOFEN 20 MG TABLET 1 TABLET ORALLY 1 Q6H QID, NOTES: 11/24 2099 TAKING CYMBALTA 60 MG CAPSULE DELAYED RELEASE PARTICLES 1 CAPSULE ORALLY ONCE A DAY, NOTES: 11/24 2099 TAKING COLACE 100 MG CAPSULE 2 CAP ORALLY BID, NOTES: 11/24 2099 TAKING ZOFRAN 4MG TABLET 2 TABLETS ORALLY BID PRN, NOTES: 11/24 2099 TAKING MORPHINE SULFATE 15 MG TABLET 1 TAB ORALLY Q6H PRN MDD4, NOTES: 11/24 2099 NOT-TAKING CYMBALTA 30 MG CAPSULE DELAYED RELEASE PARTICLES 1 CAPSULE ORALLY DAILY NOT-TAKING LINZESS 145MCG CAPSULE 1 CAPSULE ORALLY ONCE A DAY NEEDED NOT-TAKING CLONIDINE HCL 0.1 MG TABLET 1 TABLET AT BEDTIME ORALLY ONCE A DAY DISCONTINUED COLACE 100 MG CAPSULE 2 CAP ORALLY 3X DAILY, NOTES: DUPLICATE MEDICATION LIST REVIEWED AND RECONCILED WITH THE PATIENT PAST MEDICAL HISTORY DEPRESSION HYPERTENSION HYPERLIPIDEMIA INSOMNIA IBS REFLUX CHRONIC BACK PAIN ATHRITIS IN BACK BILATERAL HIP BURSITIS, RIGHT > LEFT NOCTURIA ALLERGIES PENICILLIN (FOR ALLERGIES USE ONLY): HIVES - ALLERGY ANCEF: HIVES - ALLERGY STRAWBERRIES/MANGOS: SEVERE HIVES, ITCHING - ALLERGY SURGICAL HISTORY BACK SURGERY 2008 GALL BLADDER 1988 HYSTERECTOMY 1993 LEFT BREAST BIOPSY AGE 14 RIGHT BREAST BIOPSY 2003 FAMILY HISTORY FATHER: , DIAGNOSED WITH UNSPECIFIED HEART DISEASE MOTHER: , UNSPECIFIED HEART DISEASE, UNSPECIFIED CEREBRAL ARTERY OCCLUSION WITH CEREBRAL INFARCTION, OTHER MALIGNANT NEOPLASM OF UNSPECIFIED SITE, OTHER SPECIFIED CONDITIONS INFLUENCING HEALTH STATUS MOTHER-ALZHEIMER\NMOTHER,AUNT,GRANDMOTHER ALL HAD BREAST CA. SOCIAL HISTORY GENERAL: TOBACCO USE ARE YOU A:CURRENT SMOKER ARE YOU INTERESTED IN QUITTING?NOT READY TO QUIT COUNSELED THE PATIENT ON SMOKING EFFECTS, EDUCATION FCDGODYA08/06/2020 HOW MANY CIGARETTES A DAY DO YOU SMOKE?6-10 HOW SOON AFTER YOU WAKE UP DO YOU SMOKE YOUR FIRST CIGARETTE?6-30 MIN HOW OFTEN DO YOU SMOKE CIGARETTES?EVERY DAY PATIENT COUNSELED ON THE DANGERS OF TOBACCO USE AND URGED TO QUIT:11/25/2019 ADDITIONAL FINDINGS: TOBACCO USER NONE SMOKING CESSATION INFORMATION GIVEN09/08/2019 VAPORNO E-CIGARETTENO HIV / HEP-C SCREENING HIV TEST OFFERED TO PATIENT:YES DATE OFFERED:09/06/2019 CONSENT ON FILE TEST ACCEPTED:NO HEP-C TEST OFFERED TO PATIENT:YES DATE OFFERED:09/06/2019 CONSENT ON FILE REASON:PATIENT DECLINED TEST ACCEPTED:NO REASON:PATIENT DECLINED BROCHURE PROVIDED TO PATIENTNO EDUCATION LEVEL OF EDUCATION:FINISHED HIGH SCHOOL 11TH GRADE DIET: REGULAR. LANGUAGE GHANAIAN. DOMESTIC VIOLENCE DO YOU FEEL SAFE IN YOUR ENVIRONMENT?YES BMI CARE GOAL FOLLOW-UP ABOVE NORMAL BMI FOLLOW-UPDIETARY MANAGEMENT EDUCATION, GUIDANCE, AND COUNSELING RECREATIONAL DRUG USE DRUG USE?NO LEARNING BARRIERS / SPECIAL NEEDS CHANGE FROM LAST VISIT?NO 09/30/2019 BARRIERS TO LEARNING?NO HEARING IMPAIRED?NO VISION IMPAIRED?YES :CORRECTIVE LENSES READING COGNITIVELY IMPAIRED?NO READINESS TO LEARN?YES LEARNING PREFERENCES?NO LEARNING CAPABILITIES PRESENT?YES EMOTIONAL BARRIERS?NO SPECIAL DEVICES?NO CENTRAL OFFICE FRAME WIRER NEEDED?NO PAIN CLINIC PFS, CLERGY, PUBLIC HEALTH REFERRALS PFS REFERRAL NEEDED?NO CLERGY REFERRAL NEEDED?NO PUBLIC HEALTH REFERRAL NEEDED?NO WAS THE PROVIDER NOTIFIED OF ANY PERTINENT INFO? N/A HAS THE PATIENT BEEN EDUCATED REGARDING HIS/HER PLAN OF CARE?YES HAS THE PATIENT BEEN EDUCATED REGARDING PAIN, THE RISK FOR PAIN, THE IMPORTANCE OF EFFECTIVE PAIN MANAGEMENT, AND THE PAIN ASSESSMENT PROCESS?YES LATEX QUESTIONNAIRE LATEX ALLERGY : HAVE YOU EVER DEVELOPED ANY TYPE OF REACTION AFTER HANDLING LATEX PRODUCTS SUCH RUBBER GLOVES, CONDOMS, DIAPHRAGMS, BALLOONS, SOCKS, OR UNDERWEAR?NO LATEX ALLERGY : HAVE YOU EVER DEVELOPED ANY TYPE OF REACTION DURING OR AFTER DENTAL APPOINTMENT, VAGINAL/RECTAL EXAMINATION, SURGICAL PROCEDURE, OR ANY OTHER EXPOSURE?NO LATEX RISK : HAVE YOU EVER HAD ANY DIFFICULTY BREATHING OR HIVES AFTER EATING OR HANDLING ANY FRUITS, OR VEGETABLES; SUCH KIWI, BANANAS, STONE FRUITS, OR CHESTNUTSYES - PLEASE INDICATE : MANGOS LATEX RISK : DO YOU HAVE A PREVIOUS PERSONAL HISTORY OF MORE THAN NINE SURGERIES, SPINA BIFIDA, OR REPEATED CATHERIZATIONS? NO LATEX RISK : ARE YOU FREQUENTLY EXPOSED TO LATEX PRODUCTS IN YOUR OCCUPATION?NO DATE ASKED : 11/25/2019 CAFFEINE CAFFEINE USE?YES COFFEE,DIET PEPSI ADVANCE DIRECTIVE ADVANCE DIRECTIVE DISCUSSED WITH PATIENT:YES 11/25/2019 1053 PT DOES NOT HAVE ANY ADVANCED DIRECTIVES AND SHE DECLINES INFORMATION ON HCP AT THIS TIME. AD EPISCOPALIAN [id number] NONDENOMINATIONAL MARITAL STATUS: . ALCOHOL SCREENING DID YOU HAVE A DRINK CONTAINING ALCOHOL IN THE PAST YEAR?NO POINTS0 INTERPRETATIONNEGATIVE SEXUAL HX HAD SEX IN THE LAST 12 MONTHS (VAGINAL, ORAL, OR ANAL)?YES WITHMEN ONLY HAVE YOU EVER HAD AN STD?NO THIS PATIENT LIVES AT HOME WITH HER AND GRAND-DAUGHTER, (WHOM SHE INTENDS TO ADOPT). SHE SLEEPS OKAY ONLY. SHE FRACTURED RIGHT ELBOW, RIGHT CHEEK FRACTURE, AND LEFT WRIST IN PAST. NO HISTORY OF AN EATING DISORDER. SHE DENIES HISTORY OF PHYSICAL/SEXUAL ABUSE. SHE WEARS SEAT BELTS. SHE IS CURRENT WITH IMMUNIZATIONS AND TETANUS. SHE IS UP TO DATE WITH DENTAL AND EYE EXAMINATIONS. SHE TAKES NO VITAMINS OR CALCIUM.03/17/18 1105 REVIEWED WITH PT. AD 08/27/18 1208 REVIEWED WITH PT. BV01/05 1000 PRE-PROCEDURE SCREENING CALL DONE. AD10/15/18 REVIEWED WITH PT. AD05/11/19 1105 REVIEWED WITH PT BVREVIEWED WITH PT 09/30/18 1048 BV. HOSPITALIZATION/MAJOR DIAGNOSTIC PROCEDURE FOR SURGERIES CHILD X 2 SMC 2-3 DAY FOR HYPOXIA 10/21/2019 REVIEW OF SYSTEMS REVIEWED BY: PROVIDER: . CONSTITUTIONAL: ANY CHANGE IN YOUR MEDICAL CONDITION? YES 10/21/2019 WAS ADMITTED TO HOSPITAL DUE TO SYCOPE EPISODE IN WHICH SHE HIT HER HEAD CAUSING A LASCERATION RIGHT SIDE OF HEAD. HAD FULL WORK UP WITH NO DIFFINITIVE DIAGNOSIS. IS FOLLOWING WITH PULMONARY AND CARDIOLOGY--DR. ASHRAF AWARE . CHILLS NO . FEVER NO . INFECTION: DO YOU HAVE NEW INFECTIONS? NO . DO YOU HAVE HISTORY OF MRSA? NO . MUSCULOSKELETAL: ANY NEW PATTERNS OF PAIN OR NUMBNESS? NO . GASTROENTEROLOGY: ANY NEW CHANGE IN BOWEL CONTROL? NO . GENITOURINARY: ANY NEW CHANGE IN BLADDER CONTROL? NO . IS THERE A CHANCE YOU COULD BE ? NO . HEMATOLOGY/LYMPH: DO YOU TAKE ANY BLOOD THINNERS? (FOR EXAMPLE- COUMADIN, PLAVIX, AGGRENOX, PLATEL, PRADAXA, OR XARELTO) NO . WHEN WAS YOUR LAST DOSE? DATE: TIME: . NEUROLOGY: HAVE YOU FALLEN IN THE PAST 12 MONTHS? NO . ANY NEW EXTREMITY NUMBNESS OR WEAKNESS? NO . CARDIOLOGY: DO YOU HAVE A PACEMAKER OR DEFIBRILLATOR? NO . RESPIRATORY: HAVE YOU BEEN SICK IN THE PAST WEEK? NO . FEVER NO . FLU LIKE SYMPTOMS? NO . COUGH NO . INTEGUMENTARY: DO YOU HAVE ANY RASHES OR OPEN SORES? NO . ALLERGIC/IMMUNO: ARE YOU ALLERGIC TO IV DYE? NO . ANY NEW ALLERGIES? NO . PSYCHIATRIC: DO YOU HAVE THOUGHTS OF HURTING YOURSELF OR SOMEONE ELSE? NO . ARE YOU ABUSED, NEGLECTED, OR IN AN UNSAFE ENVIRONMENT? NO . ENDOCRINOLOGY: ARE YOU DIABETIC? NO . OTHER: DO YOU NEED ANY PRESCRIPTIONS? NO . IF YES, PLEASE LIST: ____ . ANY NEW PROBLEMS WITH YOUR MEDICATIONS? NO . WHEN DID YOU LAST EAT? 11/24 1800 . WHEN DID YOU LAST DRINK? 11/25 0800 . WHAT DID YOU LAST DRINK? WATER . NAME OF PERSON DRIVING YOU HOME? SAMIA MCCLAIN . DO YOU HAVE ANY OTHER QUESTIONS OR CONCERNS NO . VITAL SIGNS WT 149.0 LBS, HT 63 IN, BMI 26.39 INDEX, BP 115/74 MM HG, HR 91 /MIN, RR 16 /MIN, TEMP 97.3 F, OXYGEN SAT % 94%, SAFE IN ENV? (Y/N) Y, NA INITIALS AW 1026, REVIEWED BY: AD. ASSESSMENTS TROCHANTERIC BURSITIS OF RIGHT HIP - M70.61 (PRIMARY) TREATMENT TROCHANTERIC BURSITIS OF RIGHT HIP [facility] FLUORO GUIDANCE (PAIN)[id number] PROCEDURES PREPROCEDURE DIAGNOSIS: BURSITIS AT THE RIGHT GREATER TROCHANTER OF THE FEMUR. POSTPROCEDURE DIAGNOSIS: BURSITIS AT THE RIGHT GREATER TROCHANTER OF THE FEMUR. PROCEDURE: INJECTION AT THE BURSA OF THE RIGHT GREATER TROCHANTER OF THE FEMUR UNDER FLUOROSCOPIC GUIDANCE. SURGEON: DR. STLELA ASHRAF GRADUATE RN: NONEANESTHESIA: LOCAL. PREOPERATIVE NOTE: THE PATIENT HAS A HISTORY OF RIGHT HIP PAIN. I EVALUATED THE PATIENT AND REVIEWED THE CHART. WE BOTH AGREE ON INJECTING OVER THE BURSA OF THE RIGHT GREATER TROCHANTER OF THE FEMUR. I WENT THROUGH THE RISKS, ALTERNATIVES, AND BENEFITS ASSOCIATED WITH THIS PROCEDURE. THE PATIENT WOULD LIKE TO PROCEED AND GIVE CONSENT TO PERFORMED THE PROCEDURE. THE PATIENT DENIES UNEXPLAINABLE WEIGHT LOSS, FEVERS, CHILLS, OR CHANGES IN HIS URINARY OR BOWEL CONTROL. DESCRIPTION OF PROCEDURE: AFTER CONSENT WAS TAKEN, THE PATIENT WAS BROUGHT TO THE PROCEDURE ROOM AND PLACED IN THE LEFT LATERAL DECUBITUS POSITION. THE RIGHT HIP AREA WAS CLEANED WITH CHLORAPREP SOLUTION AND DRAPED ASEPTICALLY. THE PROCEDURE WAS DONE UNDER STERILE CONDITIONS. I CHECKED LATERALITY WITH THE PATIENT AND THE STAFF IN THE PROCEDURE ROOM AT THE MOMENT OF THE TIME OUT. UNDER FLUOROSCOPIC GUIDANCE, TARGET WAS SELECTED AT THE RIGHT GREATER TROCHANTER OF THE FEMUR. LIDOCAINE WAS USED TO NUMB THE SKIN AND THE SUBCUTANEOUS TISSUE BELOW IT. SPINAL NEEDLE, 22-GAUGE WAS ADVANCED UNDER FLUOROSCOPIC GUIDANCE AND FOLLOWING PATIENT FEEDBACK UNTIL THE TARGET WAS TOUCHED. POSITION OF THE NEEDLE WAS VERIFIED WITH AP AND LATERAL VIEWS. AFTER PROPER POSITION OF THE NEEDLE WAS ACHIEVED, ISOVUE M DYE, 30%, 0.25 ML WAS INJECTED SHOWING ADEQUATE SPREAD OF THE DYE. THEN A SOLUTION OF 20 ML OF BUPIVACAINE 0.25% AND KENALOG 40 MG WAS INJECTED. THERE WAS NO EVIDENCE OF BLOOD, PARESTHESIA, OR CEREBROSPINAL FLUID. THE PATIENT WAS SENT TO THE RECOVERY ROOM. THE PATIENT WAS MOVING THE EXTREMITIES AND DOING WELL. THERE WERE NO COMPLICATIONS DURING THE PROCEDURE. POSTOPERATIVE NOTE: I DISCUSSED ALTERNATIVES WITH THE PATIENT. WE WILL SEE THE PATIENT BACK IN SEVERAL WEEKS FOR REEVALUATION OF THE CASE. I AM LOOKING FOR LONG-LASTING PAIN RELIEF WITH THIS INTERVENTION. FLUOROSCOPIC TIME WAS 7 SECONDS. FURTHER RECOMMENDATIONS WILL BE DONE DEPENDING ON HOW THE PATIENT DOES. THERE WERE NO COMPLICATIONS. I, LEE ANN ZUNIGA, DOCUMENTED THE ABOVE INFORMATION ACTING A SCRIBE FOR DR. ASHRAF. I HAVE REVIEWED THE ABOVE DOCUMENT, WRITTEN BY LEE ANN RODRIGUEZ AND I VERIFY THAT IT IS ACCURATE. PROCEDURE CODES 6045F RADXPS IN END [id number] PXD [id number] DRAIN/INJ JOINT/BURSA W/O US, MODIFIERS: RT [id number] NEEDLE LOCALIZATION BY XRAY, MODIFIERS: 26 DISPOSITION & COMMUNICATION FOLLOW UP 3 WEEKS ELECTRONICALLY SIGNED BY STELLA ASHRAF MD, MD ON 12/02/2019 AT 01:50 PM EST DISCLAIMER : THIS IS A VISIT SUMMARY EXTRACTED FROM THE [employer] CHART. IT IS NOT A COPY OF THE [employer] PROGRESS NOTE. MTDD
== END ==
LOC: M PAIN 10:00
PROVIDERS: ATTEND Anesthesiology
DX: M70.61 Trochanteric bursitis, right hip (principal); Z86.59 Personal history of other mental and behavioral disorders; I10 Essential (primary) hypertension; E78.5 Hyperlipidemia, unspecified; G47.00 Insomnia, unspecified; K21.9 Gastro-esophageal reflux disease without esophagitis; F17.210 Nicotine dependence, cigarettes, uncomplicated; Z88.0 Allergy status to penicillin; Z88.1 Allergy status to other antibiotic agents; Z91.018 Allergy to other foods; Z79.891 Long term (current) use of opiate analgesic; Z79.899 Other long term (current) drug therapy
CPT/HCPCS: 20610; 77002; J3301; Q0162; Q9967

== ENCOUNTER → 2019-12-13 | Outpatient (CLI) | payer OTHER ==
[~2019-12-13] MED LIST changes: -BUPIVACAINE HCL 0.25% 30 ML VIAL As Ordered ONE; -ISOVUE-M 300 61% 15ML VIAL (Q9967) As Ordered ONE; -LIDOCAINE 1% SDV INJ 30 ML VIAL As Ordered ONE; -ONDANSETRON 4 MG ORAL DISINTEGRATING TAB (Q0162 PER 1MG) As Ordered ONE; -TRIAMCINOLONE ACETONIDE SUSP 40 MG/ML VIAL (J3301) As Ordered ONE; -diazePAM 5 MG TAB As Ordered ONE; -oxyCODONE 5MG TAB As Ordered ONE
--- NOTE | 2019-12-21 06:38 | ECWPNPC ---
PATIENT NAME: JOI MCCLAIN : 1965 GENDER: FEMALE VISIT DATE: 12/13/2019 DISCHARGE DATE: 12/13/19 1344 VISIT LOCKED DATE TIME: PHYSICIAN: REUBEN CRONIN RESOURCE: REUBEN CRONIN REASON FOR APPOINTMENT 1. POST TROCH BURSA HISTORY OF PRESENT ILLNESS HISTORY OF PRESENT ILLNESS: PAIN THE PATIENT DESCRIBES THE PAIN... 54-YEAR-OLD FEMALE IN FOR POST TROCHANTERIC BURSAL INJECTION. SHE RATES HER PAIN PREPROCEDURE AT A 10 OUT OF 10 AND POSTPROCEDURE AT A 3 OUT OF 10 FURTHER STATING THAT IT CONTINUES TO HELP TODAY IN THAT AREA. SHE RATES HER PAIN CURRENTLY AT A 8 OUT OF 10 IN HER LOW BACK AND DESCRIBES IT ACHING, SHARP, BURNING, STABBING, SORE, SHOOTING, AND TENDER. FALL RISK SCREENING: SCREENING :NO FALLS REPORTED IN THE LAST YEAR CURRENT MEDICATIONS TAKING OMEPRAZOLE 40MG CAPSULE DELAYED RELEASE TAKE ONE CAPSULE BY MOUTH DAILY TAKING IMITREX 50 MG TABLET 1 TABLET NEEDED ONE TIME, MAY REPEAT IN 2 HOURS IF HEADACHE STILL PRESENT, MDD 2 ORALLY DIRECTED TAKING ATORVASTATIN CALCIUM 10MG TABLET 1 TABLET ORALLY ONCE A DAY TAKING ERGOCALCIFEROL 42882 UNIT CAPSULE 1 CAPSULE ORALLY ONCE A WEEK TAKING HYDROCHLOROTHIAZIDE 12.5MG TABLET 1 TABLET ORALLY ONCE A DAY TAKING HYDROXYZINE HCL 50 MG TABLET 1 TABLET NEEDED ORALLY BEFORE BED TAKING GABAPENTIN 300 MG CAPSULE 1 ORALLY 1 IN AM,1 MIDDAY AND 2 AT HS TAKING CELECOXIB 200 MG CAPSULE TAKE ONE CAPSULE BY MOUTH EVERY DAY WITH FOOD ORAL DAILY TAKING BACLOFEN 20 MG TABLET 1 TABLET ORALLY 1 Q6H QID TAKING CYMBALTA 60 MG CAPSULE DELAYED RELEASE PARTICLES 1 CAPSULE ORALLY ONCE A DAY TAKING COLACE 100 MG CAPSULE 2 CAP ORALLY BID TAKING ZOFRAN 4MG TABLET 2 TABLETS ORALLY BID PRN TAKING MORPHINE SULFATE 15 MG TABLET 1 TAB ORALLY Q6H PRN MDD4 NOT-TAKING CYMBALTA 30 MG CAPSULE DELAYED RELEASE PARTICLES 1 CAPSULE ORALLY DAILY NOT-TAKING LINZESS 145MCG CAPSULE 1 CAPSULE ORALLY ONCE A DAY NEEDED NOT-TAKING CLONIDINE HCL 0.1 MG TABLET 1 TABLET AT BEDTIME ORALLY ONCE A DAY MEDICATION LIST REVIEWED AND RECONCILED WITH THE PATIENT PAST MEDICAL HISTORY DEPRESSION HYPERTENSION HYPERLIPIDEMIA INSOMNIA IBS REFLUX CHRONIC BACK PAIN ATHRITIS IN BACK BILATERAL HIP BURSITIS, RIGHT > LEFT NOCTURIA ALLERGIES PENICILLIN (FOR ALLERGIES USE ONLY): HIVES - ALLERGY ANCEF: HIVES - ALLERGY STRAWBERRIES/MANGOS: SEVERE HIVES, ITCHING - ALLERGY SURGICAL HISTORY BACK SURGERY 2009 GALL BLADDER 1989 HYSTERECTOMY 1993 LEFT BREAST BIOPSY AGE 14 RIGHT BREAST BIOPSY 2003 FAMILY HISTORY FATHER: , DIAGNOSED WITH UNSPECIFIED HEART DISEASE MOTHER: , UNSPECIFIED HEART DISEASE, UNSPECIFIED CEREBRAL ARTERY OCCLUSION WITH CEREBRAL INFARCTION, OTHER MALIGNANT NEOPLASM OF UNSPECIFIED SITE, OTHER SPECIFIED CONDITIONS INFLUENCING HEALTH STATUS MOTHER-ALZHEIMER\NMOTHER,AUNT,GRANDMOTHER ALL HAD BREAST CA. SOCIAL HISTORY GENERAL: TOBACCO USE ARE YOU A:CURRENT SMOKER ARE YOU INTERESTED IN QUITTING?NOT READY TO QUIT COUNSELED THE PATIENT ON SMOKING EFFECTS, EDUCATION [id number]/24/2020 HOW MANY CIGARETTES A DAY DO YOU SMOKE?6-10 HOW SOON AFTER YOU WAKE UP DO YOU SMOKE YOUR FIRST CIGARETTE?6-30 MIN HOW OFTEN DO YOU SMOKE CIGARETTES?EVERY DAY PATIENT COUNSELED ON THE DANGERS OF TOBACCO USE AND URGED TO QUIT:11/25/2019 ADDITIONAL FINDINGS: TOBACCO USER NONE SMOKING CESSATION INFORMATION GIVEN09/08/2019 VAPORNO E-CIGARETTENO HIV / HEP-C SCREENING HIV TEST OFFERED TO PATIENT:YES DATE OFFERED:09/06/2019 CONSENT ON FILE TEST ACCEPTED:NO HEP-C TEST OFFERED TO PATIENT:YES DATE OFFERED:09/06/2019 CONSENT ON FILE REASON:PATIENT DECLINED TEST ACCEPTED:NO REASON:PATIENT DECLINED BROCHURE PROVIDED TO PATIENTNO EDUCATION LEVEL OF EDUCATION:FINISHED HIGH SCHOOL 11TH GRADE DIET: REGULAR. LANGUAGE UGANDAN. DOMESTIC VIOLENCE DO YOU FEEL SAFE IN YOUR ENVIRONMENT?YES BMI CARE GOAL FOLLOW-UP ABOVE NORMAL BMI FOLLOW-UPDIETARY MANAGEMENT EDUCATION, GUIDANCE, AND COUNSELING RECREATIONAL DRUG USE DRUG USE?NO LEARNING BARRIERS / SPECIAL NEEDS CHANGE FROM LAST VISIT?NO 09/30/2019 BARRIERS TO LEARNING?NO HEARING IMPAIRED?NO VISION IMPAIRED?YES COGNITIVELY IMPAIRED?NO :CORRECTIVE LENSES READING READINESS TO LEARN?YES LEARNING PREFERENCES?NO LEARNING CAPABILITIES PRESENT?YES EMOTIONAL BARRIERS?NO SPECIAL DEVICES?NO GIS GEOGRAPHER NEEDED?NO PAIN CLINIC PFS, CLERGY, PUBLIC HEALTH REFERRALS PFS REFERRAL NEEDED?NO CLERGY REFERRAL NEEDED?NO PUBLIC HEALTH REFERRAL NEEDED?NO WAS THE PROVIDER NOTIFIED OF ANY PERTINENT INFO? N/A HAS THE PATIENT BEEN EDUCATED REGARDING HIS/HER PLAN OF CARE?YES HAS THE PATIENT BEEN EDUCATED REGARDING PAIN, THE RISK FOR PAIN, THE IMPORTANCE OF EFFECTIVE PAIN MANAGEMENT, AND THE PAIN ASSESSMENT PROCESS?YES LATEX QUESTIONNAIRE LATEX ALLERGY : HAVE YOU EVER DEVELOPED ANY TYPE OF REACTION AFTER HANDLING LATEX PRODUCTS SUCH RUBBER GLOVES, CONDOMS, DIAPHRAGMS, BALLOONS, SOCKS, OR UNDERWEAR?NO LATEX ALLERGY : HAVE YOU EVER DEVELOPED ANY TYPE OF REACTION DURING OR AFTER DENTAL APPOINTMENT, VAGINAL/RECTAL EXAMINATION, SURGICAL PROCEDURE, OR ANY OTHER EXPOSURE?NO DATE ASKED : 11/25/2019 LATEX RISK : HAVE YOU EVER HAD ANY DIFFICULTY BREATHING OR HIVES AFTER EATING OR HANDLING ANY FRUITS, OR VEGETABLES; SUCH KIWI, BANANAS, STONE FRUITS, OR CHESTNUTSYES - PLEASE INDICATE : MANGOS LATEX RISK : DO YOU HAVE A PREVIOUS PERSONAL HISTORY OF MORE THAN NINE SURGERIES, SPINA BIFIDA, OR REPEATED CATHERIZATIONS? NO LATEX RISK : ARE YOU FREQUENTLY EXPOSED TO LATEX PRODUCTS IN YOUR OCCUPATION?NO CAFFEINE CAFFEINE USE?YES COFFEE,DIET PEPSI ADVANCE DIRECTIVE ADVANCE DIRECTIVE DISCUSSED WITH PATIENT:YES PT DOES NOT HAVE ANY ADVANCED DIRECTIVES AND SHE DECLINES INFORMATION ON HCP AT THIS TIME. RESTORATION [id number] CHURCH MARITAL STATUS: . ALCOHOL SCREENING DID YOU HAVE A DRINK CONTAINING ALCOHOL IN THE PAST YEAR?NO POINTS0 INTERPRETATIONNEGATIVE SEXUAL HX HAD SEX IN THE LAST 12 MONTHS (VAGINAL, ORAL, OR ANAL)?YES WITHMEN ONLY HAVE YOU EVER HAD AN STD?NO THIS PATIENT LIVES AT HOME WITH HER AND GRAND-DAUGHTER, (WHOM SHE INTENDS TO ADOPT). SHE SLEEPS OKAY ONLY. SHE FRACTURED RIGHT ELBOW, RIGHT CHEEK FRACTURE, AND LEFT WRIST IN PAST. NO HISTORY OF AN EATING DISORDER. SHE DENIES HISTORY OF PHYSICAL/SEXUAL ABUSE. SHE WEARS SEAT BELTS. SHE IS CURRENT WITH IMMUNIZATIONS AND TETANUS. SHE IS UP TO DATE WITH DENTAL AND EYE EXAMINATIONS. SHE TAKES NO VITAMINS OR CALCIUM.03/17/18 1105 REVIEWED WITH PT. AD 08/27/18 1208 REVIEWED WITH PT. BV01/05 1000 PRE-PROCEDURE SCREENING CALL DONE. AD10/15/18 REVIEWED WITH PT. AD05/11/19 1105 REVIEWED WITH PT BVREVIEWED WITH PT 09/30/18 1048 BV. HOSPITALIZATION/MAJOR DIAGNOSTIC PROCEDURE FOR SURGERIES CHILD X 2 SMC 2-3 DAY FOR HYPOXIA 10/21/2019 REVIEW OF SYSTEMS REVIEWED BY: PROVIDER: SASKIA MARTINEZ . CONSTITUTIONAL: ANY CHANGE IN YOUR MEDICAL CONDITION? NO . CHILLS NO . FEVER NO . INFECTION: DO YOU HAVE NEW INFECTIONS? NO . DO YOU HAVE HISTORY OF MRSA? NO . MUSCULOSKELETAL: ANY NEW PATTERNS OF PAIN OR NUMBNESS? NO . GASTROENTEROLOGY: ANY NEW CHANGE IN BOWEL CONTROL? NO . GENITOURINARY: ANY NEW CHANGE IN BLADDER CONTROL? NO . IS THERE A CHANCE YOU COULD BE ? NO . HEMATOLOGY/LYMPH: DO YOU TAKE ANY BLOOD THINNERS? (FOR EXAMPLE- COUMADIN, PLAVIX, AGGRENOX, PLATEL, PRADAXA, OR XARELTO) NO . WHEN WAS YOUR LAST DOSE? DATE: TIME: . NEUROLOGY: HAVE YOU FALLEN IN THE PAST 12 MONTHS? NO . ANY NEW EXTREMITY NUMBNESS OR WEAKNESS? NO . CARDIOLOGY: DO YOU HAVE A PACEMAKER OR DEFIBRILLATOR? NO . RESPIRATORY: HAVE YOU BEEN SICK IN THE PAST WEEK? YESNAUSEA, VOMITING GETTING BETTER . FEVER NO . FLU LIKE SYMPTOMS? NO . COUGH NO . INTEGUMENTARY: DO YOU HAVE ANY RASHES OR OPEN SORES? NO . ALLERGIC/IMMUNO: ARE YOU ALLERGIC TO IV DYE? NO . ANY NEW ALLERGIES? NO . PSYCHIATRIC: DO YOU HAVE THOUGHTS OF HURTING YOURSELF OR SOMEONE ELSE? NO . ARE YOU ABUSED, NEGLECTED, OR IN AN UNSAFE ENVIRONMENT? NO . ENDOCRINOLOGY: ARE YOU DIABETIC? NO . OTHER: DO YOU NEED ANY PRESCRIPTIONS? YES, MORPHINE . IF YES, PLEASE LIST: ____ . ANY NEW PROBLEMS WITH YOUR MEDICATIONS? NO . WHEN DID YOU LAST EAT? ____ . WHEN DID YOU LAST DRINK? ____ . WHAT DID YOU LAST DRINK? ____ . NAME OF PERSON DRIVING YOU HOME? ____ . DO YOU HAVE ANY OTHER QUESTIONS OR CONCERNS NO . VITAL SIGNS WT 142 LBS, HT 63 IN, BMI 25.15 INDEX, BP 135/79 MM HG, HR 90 /MIN, RR 16 /MIN, TEMP 96.5 F, OXYGEN SAT % 96, SAFE IN ENV? (Y/N) Y, REVIEWED BY: EM. EXAMINATION GENERAL EXAMINATION: GENERALNO ACUTE DISTRESS, WELL NOURISHED AND HYDRATED. PSYCHAPPROPRIATE MOOD AND AFFECT . LUNGS:CLEAR TO AUSCULTATION BILATERALLY, NO WHEEZES, RHONCHI, RALES. HEART:NO MURMURS, REGULAR RATE AND RHYTHM. BACK:POINT TENDER ALONG LUMBAR SPINE, SURROUNDING SKIN SHOWS NO ERYTHEMA, ECCHYMOSIS, INCREASED WARMTH, AND/OR SKIN ERUPTIONS NOTED. POSITIVE MODIFIED SLR RIGHT SIDE . MUSCULOSKELETAL:NOTABLE WEAKNESS OF THE LOWER EXTREMITIES BILATERALLY . ASSESSMENTS LUMBAR RADICULAR PAIN - M54.16 (PRIMARY) ADVERSE EFFECT OF OTHER OPIOIDS, INITIAL ENCOUNTER - T40.2X5A TREATMENT LUMBAR RADICULAR PAIN REFILL MORPHINE SULFATE TABLET, 15 MG, 1 TAB, ORALLY, Q6H PRN MDD4, 30 DAY(S), 120, REFILLS 0 START AMITIZA CAPSULE, 24 MCG, 1 CAPSULE WITH FOOD AND WATER, ORALLY, TWICE A DAY, 30 DAY(S), 60 NOTES: CAUDAL EPIDURAL. CLINICAL NOTES: 54-YEAR-OLD FEMALE IN FOR POST BURSAL INJECTION FOLLOW-UP. GIVEN PRESENTING SYMPTOMS AND RESULTS OF PHYSICAL EXAMINATION RECOMMEND CAUDAL EPIDURAL WITH POSTPROCEDURAL FOLLOW-UP. FURTHER RECOMMENDED STARTING AMITIZA FOR OPIATE-INDUCED CONSTIPATION. PATIENT HAS EXPRESSED UNDERSTANDING OF AND WAS IN AGREEMENT WITH TREATMENT PLAN. GIVEN TIME TO ASK QUESTIONS AND EXPRESS CONCERNS., ISTOP REGISTRY REVIEWED AND DEMONSTRATES COMPLLIANCE. (REF # [id number] ) BRINGS IN MEDICATIONS WHICH IS APPROPRIATE FOR WHAT WAS DISPENSED. RECENT URINE TOXICOLOGY REVIEWED. NO UNAUTHORIZED MEDICATIONS. NO ILLICIT SUBSTANCES AND PRESCRIBED MEDICATIONS WERE PRESENT. OTHERS NOTES: LUBIPROSTONE MATERIAL WAS PRINTED. PROCEDURE CODES FA211 ESTABILISHED PATIENT [facility] CHARGE DISPOSITION & COMMUNICATION FOLLOW UP POSTPROCEDURE (REASON: CAUDAL EPIDURAL) ELECTRONICALLY SIGNED BY MERI ZHENG ON 12/20/2019 AT 08:38 AM EST DISCLAIMER : THIS IS A VISIT SUMMARY EXTRACTED FROM THE [employer] CHART. IT IS NOT A COPY OF THE [employer] PROGRESS NOTE. LAURA
== END ==
LOC: M PAIN 13:00
PROVIDERS: ATTEND Family Medicine
DX: M54.16 Radiculopathy, lumbar region (principal); T40.2X5A Adverse effect of other opioids, initial encounter; F17.210 Nicotine dependence, cigarettes, uncomplicated; F32.9 Major depressive disorder, single episode, unspecified; I10 Essential (primary) hypertension; E78.5 Hyperlipidemia, unspecified; G47.00 Insomnia, unspecified; K58.9 Irritable bowel syndrome, unspecified; K21.9 Gastro-esophageal reflux disease without esophagitis; M70.71 Other bursitis of hip, right hip; M70.72 Other bursitis of hip, left hip; Z79.899 Other long term (current) drug therapy; Z88.0 Allergy status to penicillin; Z88.1 Allergy status to other antibiotic agents; Z91.018 Allergy to other foods

== ENCOUNTER → 2020-01-10 | Outpatient (CLI) | payer OTHER ==
[~2020-01-10] MED LIST changes: +ISOVUE-M 300 61% 15ML VIAL (Q9967) As Ordered ONE; +LIDOCAINE 1% SDV INJ 30 ML VIAL As Ordered ONE; +diazePAM 5 MG TAB As Ordered ONE; +methylPREDNISolone SUSP 40 MG/ML (DEPO-medrol) VIAL (J1030) As Ordered ONE; +oxyCODONE 5MG TAB As Ordered ONE
--- NOTE | 2020-01-15 03:06 | ECWPNPC ---
PATIENT NAME: JOI MCCLAIN : 1965 GENDER: FEMALE VISIT DATE: 01/10/2020 DISCHARGE DATE: 01/10/20 1308 VISIT LOCKED DATE TIME: PHYSICIAN: STELLA ASHRAF MD RESOURCE: STELLA ASHRAF MD REASON FOR APPOINTMENT 1. CAUDAL EPIDURAL HISTORY OF PRESENT ILLNESS HISTORY OF PRESENT ILLNESS: PAIN THE PATIENT DESCRIBES THE PAIN... 54 YEAR OLD FEMALE PATIENT WITH A HISTORY OF CHRONIC LOW BACK AND LEG PAIN. THE PATIENT DESCRIBES THE PAIN ACHING, TENDER, SHARP, AND DAILY WITH A PAIN SCORE OF 6-9/10 DEPENDING ON PHYSICAL ACTIVITY. THE PATIENT RECEIVED A LUMBAR EPIDURAL IN THE PAST THAT HAS PROVIDED HER WITH GOOD PAIN RELIEF. PATIENT DENIES UNEXPLAINABLE WEIGHT LOSS, FEVER, CHILLS, NEW CHANGES ON HER URINARY OR BOWEL CONTROL. FALL RISK SCREENING: SCREENING :NO FALLS REPORTED IN THE LAST YEAR CURRENT MEDICATIONS TAKING OMEPRAZOLE 40MG CAPSULE DELAYED RELEASE TAKE ONE CAPSULE BY MOUTH DAILY, NOTES: 04/10 ABI TAKING IMITREX 50 MG TABLET 1 TABLET NEEDED ONE TIME, MAY REPEAT IN 2 HOURS IF HEADACHE STILL PRESENT, MDD 2 ORALLY DIRECTED, NOTES: 2 DAYS AGO TAKING ATORVASTATIN CALCIUM 10MG TABLET 1 TABLET ORALLY ONCE A DAY, NOTES: 04/10 ABI TAKING ERGOCALCIFEROL 99685 UNIT CAPSULE 1 CAPSULE ORALLY ONCE A WEEK, NOTES: FRIDAY TAKING HYDROCHLOROTHIAZIDE 12.5MG TABLET 1 TABLET ORALLY ONCE A DAY, NOTES: 04/10 AM TAKING HYDROXYZINE HCL 50 MG TABLET 1 TABLET NEEDED ORALLY BEFORE BED, NOTES: 04/10 ABI TAKING GABAPENTIN 300 MG CAPSULE 1 ORALLY 1 IN AM,1 MIDDAY AND 2 AT HS, NOTES: 04/10 ABI TAKING CELECOXIB 200 MG CAPSULE TAKE ONE CAPSULE BY MOUTH EVERY DAY WITH FOOD ORAL DAILY, NOTES: 04/10 AM TAKING BACLOFEN 20 MG TABLET 1 TABLET ORALLY 1 Q6H QID, NOTES: 04/10 ABI TAKING CYMBALTA 60 MG CAPSULE DELAYED RELEASE PARTICLES 1 CAPSULE ORALLY ONCE A DAY, NOTES: 04/10 ABI TAKING ZOFRAN 4MG TABLET 2 TABLETS ORALLY BID PRN, NOTES: 04/10 ABI TAKING MORPHINE SULFATE 15 MG TABLET 1 TAB ORALLY Q6H PRN MDD4, NOTES: 04/11 3AM TAKING MOVANTIK 25 MG TABLET 1 TABLET IN THE MORNING ORALLY ONCE A DAY, NOTES: 6/22 AM NOT-TAKING CYMBALTA 30 MG CAPSULE DELAYED RELEASE PARTICLES 1 CAPSULE ORALLY DAILY NOT-TAKING LINZESS 145MCG CAPSULE 1 CAPSULE ORALLY ONCE A DAY NEEDED NOT-TAKING CLONIDINE HCL 0.1 MG TABLET 1 TABLET AT BEDTIME ORALLY ONCE A DAY MEDICATION LIST REVIEWED AND RECONCILED WITH THE PATIENT PAST MEDICAL HISTORY DEPRESSION HYPERTENSION HYPERLIPIDEMIA INSOMNIA IBS REFLUX CHRONIC BACK PAIN ATHRITIS IN BACK BILATERAL HIP BURSITIS, RIGHT > LEFT NOCTURIA COPD-UNSPECIFIED PUMONARY NODULES-FOLLOWED BY [facility] DILATED COMMON BILE DUCT FROM 1.2 CM ON DECEMBER 2014 STUDY TO 1.7 CM 10/21/2019 PER PT MASS ON ADRENAL GLAND ALLERGIES PENICILLIN (FOR ALLERGIES USE ONLY): HIVES - ALLERGY ANCEF: HIVES - ALLERGY STRAWBERRIES/MANGOS: SEVERE HIVES, ITCHING - ALLERGY - ONSET DATE 01/10/2020 SURGICAL HISTORY BACK SURGERY 2009 GALL BLADDER 1988 HYSTERECTOMY 1993 LEFT BREAST BIOPSY AGE 14 RIGHT BREAST BIOPSY 2003 FAMILY HISTORY FATHER: , DIAGNOSED WITH UNSPECIFIED HEART DISEASE MOTHER: , UNSPECIFIED HEART DISEASE, UNSPECIFIED CEREBRAL ARTERY OCCLUSION WITH CEREBRAL INFARCTION, OTHER MALIGNANT NEOPLASM OF UNSPECIFIED SITE, OTHER SPECIFIED CONDITIONS INFLUENCING HEALTH STATUS MOTHER-ALZHEIMER\NMOTHER,AUNT,GRANDMOTHER ALL HAD BREAST CA. SOCIAL HISTORY GENERAL: TOBACCO USE ARE YOU A:CURRENT SMOKER ARE YOU INTERESTED IN QUITTING?NOT READY TO QUIT COUNSELED THE PATIENT ON SMOKING EFFECTS, EDUCATION [id number]/24/2020 HOW MANY CIGARETTES A DAY DO YOU SMOKE?6-10 HOW SOON AFTER YOU WAKE UP DO YOU SMOKE YOUR FIRST CIGARETTE?6-30 MIN HOW OFTEN DO YOU SMOKE CIGARETTES?EVERY DAY PATIENT COUNSELED ON THE DANGERS OF TOBACCO USE AND URGED TO QUIT:01/10/2020 ADDITIONAL FINDINGS: TOBACCO USER NONE SMOKING CESSATION INFORMATION GIVEN09/08/2019 VAPORNO E-CIGARETTENO HIV / HEP-C SCREENING HIV TEST OFFERED TO PATIENT:YES DATE OFFERED:09/06/2019 CONSENT ON FILE TEST ACCEPTED:NO HEP-C TEST OFFERED TO PATIENT:YES DATE OFFERED:09/06/2019 CONSENT ON FILE REASON:PATIENT DECLINED TEST ACCEPTED:NO REASON:PATIENT DECLINED BROCHURE PROVIDED TO PATIENTNO EDUCATION LEVEL OF EDUCATION:FINISHED HIGH SCHOOL 11TH GRADE DIET: REGULAR. LANGUAGE GREENLANDIC. DOMESTIC VIOLENCE DO YOU FEEL SAFE IN YOUR ENVIRONMENT?YES NEW PATIENT PAIN DIARY TODAY'S VISIT 01/10/2020 PATIENT DESCRIBES PAIN :ACHING, BURNING, HAVE IT ALL THE TIME, SHARP, STABBING, TENDER, THROBBING, SORE, SHOOTING FROM 0-10, WHAT LEVEL IS YOUR PAIN TODAY?9 PRECIPITATING FACTORS PROLONGED STANDING, HOUSEWORK ALLEVIATING FACTORS REST, LAYING DOWN IMPACT ON FUNCTION REDUCED DAILY ACTIVITY WHEN DID YOU LAST EAT? 01/09/2020 6PM WHEN DID YOU LAST DRINK? 01/10/2020 4AM WHAT DID YOU LAST DRINK? BLACK COFFEE NAME OF PERSON DRIVING YOU HOME MERLIN LALA IS THERE A CHANCE YOU COULD BE ?NO HAVE YOU BEEN SICK IN THE LAST WEEK (COLD, COUGH, FEVER, FLU, ETC)NO DO YOU TAKE ANY BLOOD THINNERS?NO DO YOU HAVE ANY RASHES OR OPEN SORES?NO ANY CHANGE IN BOWEL OR BLADDER CONTROL?NO ARE YOU ALLERGIC TO SHELLFISH OR IV DYE?NO ARE YOU DIABETIC?NO DO YOU HAVE A PACEMAKER OR DEFIBRILLATOR?NO GALL BLADDER SURGICAL CLIP ANY NEW PATTERNS OF PAIN OR NUMBNESS?NO ANY CHANGE IN YOUR MEDICAL CONDITION?NO HAVE YOU FALLEN IN THE LAST 6 MONTHS?YES PT STATES THAT SHE FELL WHILE AT HOME, LIGHTHEADED, FELL, BRUSING, NO REPORT TO ED. DO YOU USE ANY TYPE OF TOBACCO (SMOKE, SMOKELESS, CHEW, ETC.)YES ARE YOU ABUSED, NEGLECTED, OR IN AN UNSAFE ENVIRONMENT?NO DO YOU HAVE THOUGHTS OF HURTING YOURSELF OR SOMEONE ELSE?NO DO YOU NEED ANY PRESCRIPTIONS?NO DO YOU HAVE ANY OTHER QUESTIONS OR CONCERNS?NO BMI CARE GOAL FOLLOW-UP ABOVE NORMAL BMI FOLLOW-UPDIETARY MANAGEMENT EDUCATION, GUIDANCE, AND COUNSELING RECREATIONAL DRUG USE DRUG USE?NO LEARNING BARRIERS / SPECIAL NEEDS CHANGE FROM LAST VISIT?NO 09/30/2019 BARRIERS TO LEARNING?NO HEARING IMPAIRED?NO VISION IMPAIRED?YES COGNITIVELY IMPAIRED?NO :CORRECTIVE LENSES READING READINESS TO LEARN?YES LEARNING PREFERENCES?NO LEARNING CAPABILITIES PRESENT?YES EMOTIONAL BARRIERS?NO SPECIAL DEVICES?NO PLANER SETTER NEEDED?NO PAIN CLINIC PFS, CLERGY, PUBLIC HEALTH REFERRALS PFS REFERRAL NEEDED?NO CLERGY REFERRAL NEEDED?NO PUBLIC HEALTH REFERRAL NEEDED?NO WAS THE PROVIDER NOTIFIED OF ANY PERTINENT INFO?YES N/A HAS THE PATIENT BEEN EDUCATED REGARDING HIS/HER PLAN OF CARE?YES HAS THE PATIENT BEEN EDUCATED REGARDING PAIN, THE RISK FOR PAIN, THE IMPORTANCE OF EFFECTIVE PAIN MANAGEMENT, AND THE PAIN ASSESSMENT PROCESS?YES LATEX QUESTIONNAIRE LATEX ALLERGY : HAVE YOU EVER DEVELOPED ANY TYPE OF REACTION AFTER HANDLING LATEX PRODUCTS SUCH RUBBER GLOVES, CONDOMS, DIAPHRAGMS, BALLOONS, SOCKS, OR UNDERWEAR?NO LATEX ALLERGY : HAVE YOU EVER DEVELOPED ANY TYPE OF REACTION DURING OR AFTER DENTAL APPOINTMENT, VAGINAL/RECTAL EXAMINATION, SURGICAL PROCEDURE, OR ANY OTHER EXPOSURE?NO LATEX RISK : HAVE YOU EVER HAD ANY DIFFICULTY BREATHING OR HIVES AFTER EATING OR HANDLING ANY FRUITS, OR VEGETABLES; SUCH KIWI, BANANAS, STONE FRUITS, OR CHESTNUTSYES - PLEASE INDICATE : MANGOS LATEX RISK : DO YOU HAVE A PREVIOUS PERSONAL HISTORY OF MORE THAN NINE SURGERIES, SPINA BIFIDA, OR REPEATED CATHERIZATIONS? NO LATEX RISK : ARE YOU FREQUENTLY EXPOSED TO LATEX PRODUCTS IN YOUR OCCUPATION?NO DATE ASKED : 01/10/2020 CAFFEINE CAFFEINE USE?YES COFFEE,DIET PEPSI ADVANCE DIRECTIVE ADVANCE DIRECTIVE DISCUSSED WITH PATIENT:YES PT DOES NOT HAVE ANY ADVANCED DIRECTIVES AND SHE DECLINES INFORMATION ON HCP AT THIS TIME. ALEVISM [id number] [facility] STATUS: . ALCOHOL SCREENING DID YOU HAVE A DRINK CONTAINING ALCOHOL IN THE PAST YEAR?NO POINTS0 INTERPRETATIONNEGATIVE SEXUAL HX HAD SEX IN THE LAST 12 MONTHS (VAGINAL, ORAL, OR ANAL)?YES WITHMEN ONLY HAVE YOU EVER HAD AN STD?NO THIS PATIENT LIVES AT HOME WITH HER AND GRAND-DAUGHTER, (WHOM SHE INTENDS TO ADOPT). SHE SLEEPS OKAY ONLY. SHE FRACTURED RIGHT ELBOW, RIGHT CHEEK FRACTURE, AND LEFT WRIST IN PAST. NO HISTORY OF AN EATING DISORDER. SHE DENIES HISTORY OF PHYSICAL/SEXUAL ABUSE. SHE WEARS SEAT BELTS. SHE IS CURRENT WITH IMMUNIZATIONS AND TETANUS. SHE IS UP TO DATE WITH DENTAL AND EYE EXAMINATIONS. SHE TAKES NO VITAMINS OR CALCIUM. HOSPITALIZATION/MAJOR DIAGNOSTIC PROCEDURE FOR SURGERIES CHILD X 2 SMC 2-3 DAY FOR HYPOXIA 10/21/2019 REVIEW OF SYSTEMS REVIEWED BY: PROVIDER: STELLA ASHRAF MD . CONSTITUTIONAL: ANY CHANGE IN YOUR MEDICAL CONDITION? NO . CHILLS NO . FEVER NO . INFECTION: DO YOU HAVE NEW INFECTIONS? NO . DO YOU HAVE HISTORY OF MRSA? NO . MUSCULOSKELETAL: ANY NEW PATTERNS OF PAIN OR NUMBNESS? NO . GASTROENTEROLOGY: ANY NEW CHANGE IN BOWEL CONTROL? NO . GENITOURINARY: ANY NEW CHANGE IN BLADDER CONTROL? NO . IS THERE A CHANCE YOU COULD BE ? NO . HEMATOLOGY/LYMPH: DO YOU TAKE ANY BLOOD THINNERS? (FOR EXAMPLE- COUMADIN, PLAVIX, AGGRENOX, PLATEL, PRADAXA, OR XARELTO) NO . WHEN WAS YOUR LAST DOSE? DATE: TIME: . NEUROLOGY: HAVE YOU FALLEN IN THE PAST 12 MONTHS? YES, PT STATES THAT SHE TRIPPED WHILE AT HOME, LIGHTHEADED, BRUISING, NO REPORT TO ED. . ANY NEW EXTREMITY NUMBNESS OR WEAKNESS? NO . CARDIOLOGY: DO YOU HAVE A PACEMAKER OR DEFIBRILLATOR? NO . RESPIRATORY: HAVE YOU BEEN SICK IN THE PAST WEEK? NO . FEVER NO . FLU LIKE SYMPTOMS? NO . COUGH NO . INTEGUMENTARY: DO YOU HAVE ANY RASHES OR OPEN SORES? NO . ALLERGIC/IMMUNO: ARE YOU ALLERGIC TO IV DYE? NO . ANY NEW ALLERGIES? NO . PSYCHIATRIC: DO YOU HAVE THOUGHTS OF HURTING YOURSELF OR SOMEONE ELSE? NO . ARE YOU ABUSED, NEGLECTED, OR IN AN UNSAFE ENVIRONMENT? NO . ENDOCRINOLOGY: ARE YOU DIABETIC? NO . OTHER: DO YOU NEED ANY PRESCRIPTIONS? NO . IF YES, PLEASE LIST: ____ . ANY NEW PROBLEMS WITH YOUR MEDICATIONS? NO . WHEN DID YOU LAST EAT? 01/08 6PM . WHEN DID YOU LAST DRINK? 01/09 4AM . WHAT DID YOU LAST DRINK? BLACK COFFEE . NAME OF PERSON DRIVING YOU HOME? MERLIN - SON . DO YOU HAVE ANY OTHER QUESTIONS OR CONCERNS PT STATES THAT SHE IS BEING EVALUATED FOR MASS ON ADRENAL GLAND, PT NOTIFIED PAIN CENTER STAFF AFTER ON PROCEDURE TABLE THAT SHE WAS NOTIFIED BY PCP OF A MASS ON HER ADRENAL GLAND. 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 DS . VITAL SIGNS WT 145.8 LBS, HT 63 IN, BMI 25.82 INDEX, BP 139/88 MM HG, HR 89 /MIN, RR 16 /MIN, TEMP 98.6 F, OXYGEN SAT % 98%, SAFE IN ENV? (Y/N) Y, NA INITIALS AW 1132, REVIEWED BY: DS, BP STANDING DS. EXAMINATION GENERAL EXAMINATION: PATIENT IS ALERT O X 3 AND COOPERATIVE. THE PATIENT WAS HERE FOR AN EPIDURAL PROCEDURE, HOWEVER THE PATIENT WAS EXPERIENCING PVC'S. CT SCAN OF THE LUMBAR SPINE DONE ON 04/02/2019 WAS REVIEWED. ASSESSMENTS LUMBAR POST-LAMINECTOMY SYNDROME - M96.1 (PRIMARY) TREATMENT LUMBAR POST-LAMINECTOMY SYNDROME CLINICAL NOTES: WE DISCUSSED SEVERAL ISSUES WITH [facility] PAIN MANAGEMENT CASE. I DISCUSSED THE PATIENT'S CASE WITH HER PRIMARY CARE PHYSICIAN, JUNI MCLAIN. WE AGREED TO POSTPONE THE PATIENT'S PROCEDURE UNTIL THE PATIENT IS SEEN. THE PATIENT WILL BE SEEN BY HER PRIMARY CARE PROVIDER THIS AFTERNOON AND WILL FOLLOW UP WITH HERE IN SEVERAL WEEKS. INSTRUCTIONS WERE GIVEN, QUESTIONS WERE ANSWERED, PATIENT REPORTS UNDERSTANDING AND AGREES WITH THE PLAN. I, LEE ANN ZUNIGA, DOCUMENTED THE ABOVE INFORMATION ACTING A SCRIBE FOR DR. ASHRAF. I HAVE REVIEWED THE ABOVE DOCUMENT, WRITTEN BY LEE ANN RODRIGUEZ AND I VERIFY THAT IT IS ACCURATE. . PROCEDURE CODES FA211 ESTABILISHED PATIENT [facility] CHARGE [id number] CURRENT MEDS W/DOSAGES DOCUMENTED G8730 PAIN ASSESS POS TOOL F/U PLAN DOC DISPOSITION & COMMUNICATION FOLLOW UP 3 WEEKS ELECTRONICALLY SIGNED BY STELLA ASHRAF MD, MD ON 01/14/2020 AT 04:42 PM EDT DISCLAIMER : THIS IS A VISIT SUMMARY EXTRACTED FROM THE [facility] CHART. IT IS NOT A COPY OF THE [facility] PROGRESS NOTE. LAURA
== END ==
LOC: M PAIN 11:30
PROVIDERS: ATTEND Anesthesiology
DX: M96.1 Postlaminectomy syndrome, not elsewhere classified (principal); E27.9 Disorder of adrenal gland, unspecified; I10 Essential (primary) hypertension; F17.210 Nicotine dependence, cigarettes, uncomplicated; Z79.891 Long term (current) use of opiate analgesic; Z79.899 Other long term (current) drug therapy; Z88.0 Allergy status to penicillin; Z88.8 Allergy status to other drugs, medicaments and biological substances; Z91.018 Allergy to other foods; Z91.81 History of falling

== ENCOUNTER → 2020-02-07 | Outpatient (CLI) | payer OTHER ==
[~2020-02-07] MED LIST changes: -ISOVUE-M 300 61% 15ML VIAL (Q9967) As Ordered ONE; -LIDOCAINE 1% SDV INJ 30 ML VIAL As Ordered ONE; +OXYC-1 PO; -OXYC15TA76 PO; -diazePAM 5 MG TAB As Ordered ONE; -methylPREDNISolone SUSP 40 MG/ML (DEPO-medrol) VIAL (J1030) As Ordered ONE; -oxyCODONE 5MG TAB As Ordered ONE
== END ==
LOC: M RAD 16:03
PROVIDERS: ATTEND Physician Assistant
DX: R91.8 Other nonspecific abnormal finding of lung field (principal)

== ENCOUNTER 2020-02-24 08:29 | Outpatient (CLI) | payer OTHER ==
[~2020-02-24 08:29] MED LIST changes: +[UNRECOGNIZED DRUG - OTHER] PO
[2020-02-24] MEDS ORDERED: MIDAZOLAM INJ 2MG/2ML VIAL (J2250 PER 1MG) As Ordered ONE (09:44)
[2020-02-24 11:40] VITALS: BP 153/76
--- NOTE | 2020-02-24 12:12 | REP ---
MRI ABDOMEN WITH MRCP: Multiple sequences obtained in the axial and coronal planes, with MIP reconstruction images. Heavily T2-weighted MRCP sequences are performed. Comparison is made with prior CT 10/21/2019 from [facility] as well as CT abdomen and pelvis 07/13/2008. There is moderate intrahepatic biliary dilatation. There is dilatation of the common bile duct with a maximum diameter of 1.8 cm. The patient has had a prior cholecystectomy. Biliary dilatation was seen on the more remote CT of 07/13/2008 with an approximate common bile duct diameter of 1.4 cm. There is no definite stricture and no evidence of choledocholithiasis. Findings may simply represent biliary ectasia but an ampullary stricture cannot totally be excluded. Suggest correlation with clinical and laboratory findings. Pancreatic duct is normal in caliber. No gross liver abnormality is seen. The spleen is grossly unremarkable. There is left adrenal adenoma demonstrating characteristic drop in signal and [id number] imaging compared to in-phase images. It measures about 1.8 cm in maximum diameter. Right adrenal gland is normal. No gross pancreatic mass is seen. Kidneys appear unremarkable. I see no adenopathy or free fluid in the abdomen. IMPRESSION: Chronic biliary dilatation status post cholecystectomy. Moderate intrahepatic biliary dilatation. Common bile duct is dilated up to 1.8 cm. It measured 1.[address] of 2007. Findings may simply represent biliary ectasia. Ampullary stricture cannot totally be excluded. There is no evidence of choledocholithiasis. Benign left adrenal adenoma. Electronically Signed by Costa Mayen MD 02/24/2020 12:57 P
== END 2020-02-24 11:45 | disposition home or self-care (01) ==
LOC: M SDC 08:29
PROVIDERS: ATTEND Physician Assistant
DX: K83.8 Other specified diseases of biliary tract (principal); Z90.49 Acquired absence of other specified parts of digestive tract; E27.8 Other specified disorders of adrenal gland; Z88.0 Allergy status to penicillin; Z88.1 Allergy status to other antibiotic agents; Z91.018 Allergy to other foods
CPT/HCPCS: 74181; J2250

== ENCOUNTER → 2020-02-28 | Outpatient (CLI) | payer OTHER | LOC: M LABSMTC 14:02 | PROVIDERS: ATTEND Anesthesiology | DX: Z11.59 Encounter for screening for other viral diseases (principal) | CPT/HCPCS: C8903; U0002 ==

== ENCOUNTER → 2020-02-29 | Outpatient (CLI) | payer OTHER ==
[~2020-02-29] MED LIST changes: +GABA-282 PO; -GABA-843 PO; +ISOVUE-M 300 61% 15ML VIAL As Ordered ONE; +LIDOCAINE 1% SDV 30ML VIAL As Ordered ONE; +ONDANSETRON 4 MG ORAL DISINTEGRATING TAB As Ordered ONE; +dexameTHASONE 10MG/1ML VIAL PRES.FREE (J1100 PER 1MG) As Ordered ONE; +diazePAM 5MG TABLET As Ordered ONE; +oxyCODONE 5MG TAB As Ordered ONE
--- NOTE | 2020-02-29 14:00 | REP ---
C-ARM VIEWS LUMBOSACRAL SPINE: CLINICAL HISTORY: Pain. Two C-arm views of the lumbosacral spine performed during injection by Dr. Mcgee. A needle is seen at the lumbosacral junction. Small amount of contrast is injected. 6 seconds of fluoroscopy time is utilized. Electronically Signed by Costa Mayen MD 02/29/2020 03:37 P
--- NOTE | 2020-03-01 03:49 | ECWPNPC ---
PATIENT NAME: JOI MCCLAIN : 1965 GENDER: FEMALE VISIT DATE: 02/29/2020 DISCHARGE DATE: 02/29/20 1305 VISIT LOCKED DATE TIME: PHYSICIAN: STELLA ASHRAF MD RESOURCE: STELLA ASHRAF MD REASON FOR APPOINTMENT 1. LUMBAR EPIDURAL PAT DONE HISTORY OF PRESENT ILLNESS HISTORY OF PRESENT ILLNESS: PAIN THE PATIENT DESCRIBES THE PAIN... FALL RISK SCREENING: SCREENING :NO FALLS REPORTED IN THE LAST YEAR CURRENT MEDICATIONS TAKING OMEPRAZOLE 40MG CAPSULE DELAYED RELEASE TAKE ONE CAPSULE BY MOUTH DAILY, NOTES: 02/27 2200 TAKING IMITREX 50 MG TABLET 1 TABLET NEEDED ONE TIME, MAY REPEAT IN 2 HOURS IF HEADACHE STILL PRESENT, MDD 2 ORALLY DIRECTED, NOTES: NONE RECENT TAKING ATORVASTATIN CALCIUM 10MG TABLET 1 TABLET ORALLY ONCE A DAY, NOTES: 02/27 2200 TAKING ERGOCALCIFEROL 79988 UNIT CAPSULE 1 CAPSULE ORALLY ONCE A WEEK, NOTES: 02/26 TAKING HYDROCHLOROTHIAZIDE 12.5MG TABLET 1 TABLET ORALLY ONCE A DAY, NOTES: 02/28 600 TAKING HYDROXYZINE HCL 50 MG TABLET 1 TABLET NEEDED ORALLY BEFORE BED, NOTES: 02/26 TAKING CELECOXIB 200 MG CAPSULE TAKE ONE CAPSULE BY MOUTH EVERY DAY WITH FOOD ORAL DAILY, NOTES: 02/27 2200 TAKING CYMBALTA 60 MG CAPSULE DELAYED RELEASE PARTICLES 1 CAPSULE ORALLY ONCE A DAY, NOTES: 02/27 600 TAKING ZOFRAN 4MG TABLET 2 TABLETS ORALLY BID PRN, NOTES: 3-4 DAYS AGO TAKING GABAPENTIN 300 MG CAPSULE 1 ORALLY 1 IN AM,1 MIDDAY AND 2 AT HS, NOTES: 02/27 2200 TAKING MOVANTIK 25 MG TABLET 1 TABLET IN THE MORNING ORALLY ONCE A DAY, NOTES: 02/28 600 TAKING BACLOFEN 20 MG TABLET 1 TABLET ORALLY 1 Q6H QID, NOTES: 02/27 2200 TAKING MORPHINE SULFATE 15 MG TABLET 1 TAB ORALLY Q6H PRN MDD4, NOTES: 02/27 300 NOT-TAKING CYMBALTA 30 MG CAPSULE DELAYED RELEASE PARTICLES 1 CAPSULE ORALLY DAILY NOT-TAKING LINZESS 145MCG CAPSULE 1 CAPSULE ORALLY ONCE A DAY NEEDED NOT-TAKING CLONIDINE HCL 0.1 MG TABLET 1 TABLET AT BEDTIME ORALLY ONCE A DAY MEDICATION LIST REVIEWED AND RECONCILED WITH THE PATIENT PAST MEDICAL HISTORY DEPRESSION HYPERTENSION HYPERLIPIDEMIA INSOMNIA IBS REFLUX CHRONIC BACK PAIN ATHRITIS IN BACK BILATERAL HIP BURSITIS, RIGHT > LEFT NOCTURIA COPD-UNSPECIFIED PUMONARY NODULES-FOLLOWED BY [facility] DILATED COMMON BILE DUCT FROM 1.2 CM ON DECEMBER 2014 STUDY TO 1.7 CM 10/21/2019 PER PT MASS ON ADRENAL GLAND ALLERGIES PENICILLIN (FOR ALLERGIES USE ONLY): HIVES - ALLERGY ANCEF: HIVES - ALLERGY STRAWBERRIES/MANGOS: SEVERE HIVES, ITCHING - ALLERGY - ONSET DATE 01/10/2020 SURGICAL HISTORY BACK SURGERY 2009 GALL BLADDER 1988 HYSTERECTOMY 1993 LEFT BREAST BIOPSY AGE 14 RIGHT BREAST BIOPSY 2003 FAMILY HISTORY FATHER: , DIAGNOSED WITH UNSPECIFIED HEART DISEASE MOTHER: , UNSPECIFIED HEART DISEASE, UNSPECIFIED CEREBRAL ARTERY OCCLUSION WITH CEREBRAL INFARCTION, OTHER MALIGNANT NEOPLASM OF UNSPECIFIED SITE, OTHER SPECIFIED CONDITIONS INFLUENCING HEALTH STATUS MOTHER-ALZHEIMER\NMOTHER,AUNT,GRANDMOTHER ALL HAD BREAST CA. SOCIAL HISTORY GENERAL: TOBACCO USE ARE YOU A:CURRENT SMOKER ARE YOU INTERESTED IN QUITTING?NOT READY TO QUIT COUNSELED THE PATIENT ON SMOKING EFFECTS, EDUCATION [id number]/24/2020 HOW MANY CIGARETTES A DAY DO YOU SMOKE?6-10 HOW SOON AFTER YOU WAKE UP DO YOU SMOKE YOUR FIRST CIGARETTE?6-30 MIN HOW OFTEN DO YOU SMOKE CIGARETTES?EVERY DAY PATIENT COUNSELED ON THE DANGERS OF TOBACCO USE AND URGED TO QUIT:02/29/2020 ADDITIONAL FINDINGS: TOBACCO USER NONE SMOKING CESSATION INFORMATION GIVEN09/08/2019 VAPORNO E-CIGARETTENO LATEX QUESTIONNAIRE LATEX ALLERGY : HAVE YOU EVER DEVELOPED ANY TYPE OF REACTION AFTER HANDLING LATEX PRODUCTS SUCH RUBBER GLOVES, CONDOMS, DIAPHRAGMS, BALLOONS, SOCKS, OR UNDERWEAR?NO LATEX ALLERGY : HAVE YOU EVER DEVELOPED ANY TYPE OF REACTION DURING OR AFTER DENTAL APPOINTMENT, VAGINAL/RECTAL EXAMINATION, SURGICAL PROCEDURE, OR ANY OTHER EXPOSURE?NO LATEX RISK : HAVE YOU EVER HAD ANY DIFFICULTY BREATHING OR HIVES AFTER EATING OR HANDLING ANY FRUITS, OR VEGETABLES; SUCH KIWI, BANANAS, STONE FRUITS, OR CHESTNUTSYES - PLEASE INDICATE : MANGOS LATEX RISK : DO YOU HAVE A PREVIOUS PERSONAL HISTORY OF MORE THAN NINE SURGERIES, SPINA BIFIDA, OR REPEATED CATHERIZATIONS? NO LATEX RISK : ARE YOU FREQUENTLY EXPOSED TO LATEX PRODUCTS IN YOUR OCCUPATION?NO DATE ASKED : 02/28/2020 BMI CARE GOAL FOLLOW-UP ABOVE NORMAL BMI FOLLOW-UPDIETARY MANAGEMENT EDUCATION, GUIDANCE, AND COUNSELING ALCOHOL SCREENING DID YOU HAVE A DRINK CONTAINING ALCOHOL IN THE PAST YEAR?NO POINTS0 INTERPRETATIONNEGATIVE RECREATIONAL DRUG USE DRUG USE?NO CAFFEINE CAFFEINE USE?YES COFFEE,DIET PEPSI SEXUAL HX HAD SEX IN THE LAST 12 MONTHS (VAGINAL, ORAL, OR ANAL)?YES WITHMEN ONLY HAVE YOU EVER HAD AN STD?NO HIV / HEP-C SCREENING HIV TEST OFFERED TO PATIENT:YES DATE OFFERED:09/06/2019 CONSENT ON FILE TEST ACCEPTED:NO HEP-C TEST OFFERED TO PATIENT:YES DATE OFFERED:09/06/2019 CONSENT ON FILE REASON:PATIENT DECLINED TEST ACCEPTED:NO REASON:PATIENT DECLINED BROCHURE PROVIDED TO PATIENTNO CHRISTIAN SPELSSEP85 RASTAFARI LANGUAGE SPANISH. EDUCATION LEVEL OF EDUCATION:FINISHED HIGH SCHOOL 11TH GRADE LEARNING BARRIERS / SPECIAL NEEDS CHANGE FROM LAST VISIT?NO BARRIERS TO LEARNING?NO HEARING IMPAIRED?NO VISION IMPAIRED?YES :CORRECTIVE LENSES READING COGNITIVELY IMPAIRED?NO READINESS TO LEARN?YES LEARNING PREFERENCES?NO LEARNING CAPABILITIES PRESENT?YES EMOTIONAL BARRIERS?NO SPECIAL DEVICES?NO JIG BUILDER NEEDED?NO DOMESTIC VIOLENCE DO YOU FEEL SAFE IN YOUR ENVIRONMENT?YES DIET: REGULAR. MARITAL STATUS: . NEW PATIENT PAIN DIARY TODAY'S VISIT 02/29/2020 PATIENT DESCRIBES PAIN :ACHING, BURNING, HAVE IT ALL THE TIME, SHARP, STABBING, TENDER, THROBBING, SORE, SHOOTING FROM 0-10, WHAT LEVEL IS YOUR PAIN TODAY?9 PRECIPITATING FACTORS NOTHING, IT IS JUST ALWAYS THERE ALLEVIATING FACTORS INJECTIONS IMPACT ON FUNCTION REDUCES DAILY ACTIVITY PAIN CLINIC PFS, CLERGY, PUBLIC HEALTH REFERRALS PFS REFERRAL NEEDED?NO CLERGY REFERRAL NEEDED?NO PUBLIC HEALTH REFERRAL NEEDED?NO WAS THE PROVIDER NOTIFIED OF ANY PERTINENT INFO?YES N/A HAS THE PATIENT BEEN EDUCATED REGARDING HIS/HER PLAN OF CARE?YES HAS THE PATIENT BEEN EDUCATED REGARDING PAIN, THE RISK FOR PAIN, THE IMPORTANCE OF EFFECTIVE PAIN MANAGEMENT, AND THE PAIN ASSESSMENT PROCESS?YES ADVANCE DIRECTIVE ADVANCE DIRECTIVE DISCUSSED WITH PATIENT:YES 02/29/2020 PT DOES NOT HAVE ANY ADVANCED DIRECTIVES AND SHE DECLINES INFORMATION ON HCP AT THIS TIME. THIS PATIENT LIVES AT HOME WITH HER AND GRAND-DAUGHTER, (WHOM SHE INTENDS TO ADOPT). SHE SLEEPS OKAY ONLY. SHE FRACTURED RIGHT ELBOW, RIGHT CHEEK FRACTURE, AND LEFT WRIST IN PAST. NO HISTORY OF AN EATING DISORDER. SHE DENIES HISTORY OF PHYSICAL/SEXUAL ABUSE. SHE WEARS SEAT BELTS. SHE IS CURRENT WITH IMMUNIZATIONS AND TETANUS. SHE IS UP TO DATE WITH DENTAL AND EYE EXAMINATIONS. SHE TAKES NO VITAMINS OR CALCIUM. HOSPITALIZATION/MAJOR DIAGNOSTIC PROCEDURE FOR SURGERIES CHILD X 2 SMC 2-3 DAY FOR HYPOXIA 10/21/2019 REVIEW OF SYSTEMS REVIEWED BY: PROVIDER: STELLA ASHRAF MD . CONSTITUTIONAL: ANY CHANGE IN YOUR MEDICAL CONDITION? NO . CHILLS NO . FEVER NO . INFECTION: DO YOU HAVE NEW INFECTIONS? NO . DO YOU HAVE HISTORY OF MRSA? NO . MUSCULOSKELETAL: ANY NEW PATTERNS OF PAIN OR NUMBNESS? NO . GASTROENTEROLOGY: ANY NEW CHANGE IN BOWEL CONTROL? NO . GENITOURINARY: ANY NEW CHANGE IN BLADDER CONTROL? NO . IS THERE A CHANCE YOU COULD BE ? NO . HEMATOLOGY/LYMPH: DO YOU TAKE ANY BLOOD THINNERS? (FOR EXAMPLE- COUMADIN, PLAVIX, AGGRENOX, PLATEL, PRADAXA, OR XARELTO) NO . WHEN WAS YOUR LAST DOSE? DATE: TIME: . NEUROLOGY: HAVE YOU FALLEN IN THE PAST 12 MONTHS? NO . ANY NEW EXTREMITY NUMBNESS OR WEAKNESS? NO . CARDIOLOGY: DO YOU HAVE A PACEMAKER OR DEFIBRILLATOR? NO . RESPIRATORY: HAVE YOU BEEN SICK IN THE PAST WEEK? NO . FEVER NO . FLU LIKE SYMPTOMS? NO . COUGH NO . INTEGUMENTARY: DO YOU HAVE ANY RASHES OR OPEN SORES? NO . ALLERGIC/IMMUNO: ARE YOU ALLERGIC TO IV DYE? NO . ANY NEW ALLERGIES? NO . PSYCHIATRIC: DO YOU HAVE THOUGHTS OF HURTING YOURSELF OR SOMEONE ELSE? NO . ARE YOU ABUSED, NEGLECTED, OR IN AN UNSAFE ENVIRONMENT? NO . ENDOCRINOLOGY: ARE YOU DIABETIC? NO . OTHER: DO YOU NEED ANY PRESCRIPTIONS? NO . IF YES, PLEASE LIST: ____ . ANY NEW PROBLEMS WITH YOUR MEDICATIONS? NO . WHEN DID YOU LAST EAT? 02/27 1830 . WHEN DID YOU LAST DRINK? 02/28 0600 . WHAT DID YOU LAST DRINK? SIP OF WATER . NAME OF PERSON DRIVING YOU HOME? DAUGHTER, BLAIR . DO YOU HAVE ANY OTHER QUESTIONS OR CONCERNS NO PT HAS NOT HAD ANY VACCINES IN THE PAST [address] ASHRAF WANTED PT ON TIRE ADJUSTER PRIOR TO GIVING MEDICATIONS. NSR NOTED. DR. ASHRAF NOTIFIED OF RHYTHM AND WOULD LIKE TO SPEAK WITH DR. BRANTLEY PRIOR TO DOING PROCEDURE. AD . VITAL SIGNS WT 152.6 LBS, HT 63 IN, BMI 27.03 INDEX, BP 130/58 MM HG, HR 89 /MIN, RR 16 /MIN, TEMP 97.3 F, OXYGEN SAT % 97%, SAFE IN ENV? (Y/N) Y, NA INITIALS AW 1015, REVIEWED BY: [place]. ASSESSMENTS POST LAMINECTOMY SYNDROME - M96.1 (PRIMARY) SPONDYLOSIS WITHOUT MYELOPATHY OR RADICULOPATHY, LUMBAR REGION - M47.816 TREATMENT POST LAMINECTOMY SYNDROME [facility] FLUORO GUIDE SPINE INJECTION (PAIN)[id number] PROCEDURES PRE PROCEDURE DIAGNOSIS LUMBAR POST LAMINECTOMY PAIN SYNDROME, LUMBAR DISC DISORDER WITH RADICULOPATHY POST PROCEDURE DIAGNOSIS LUMBAR POST LAMINECTOMY PAIN SYNDROME, LUMBAR DISC DISORDER WITH RADICULOPATHY PROCEDURE LUMBAR EPIDURAL STEROID INJECTION UNDER FLUOROSCOPIC GUIDANCE SURGEON DR. STELLA ASHRAF COMPOTYPE OPERATOR NONE ANESTHESIA LOCAL PRE PROCEDURE NOTE THE PATIENT HAS HISTORY OF CHRONIC LOW BACK PAIN. I EVALUATED THE PATIENT AND REVIEWED THE CHART. I WENT OVER THE RISKS, ALTERNATIVES, AND BENEFITS ASSOCIATED WITH THIS PROCEDURE. I DISCUSSED WITH THE PATIENT THAT THE USE OF STEROIDS MAY CONTRIBUTE TO IMMUNOSUPPRESSION OF HER BODY AGAINST INFECTIONS SUCH THE COLIN VIRUS, COVID-19. SHE IS AWARE OF THE POTENTIAL COMPLICATIONS ASSOCIATED WITH AN INFECTION OF THIS VIRUS INCLUDING . THE PATIENT WOULD LIKE TO PROCEED AND GIVE CONSENT TO PERFORMED THE PROCEDURE. THE PATIENT DENIES UNEXPLAINABLE WEIGHT LOSS, FEVER, CHILLS, OR NEW CHANGES IN URINARY OR BOWEL CONTROL. THE PATIENT IS COVID-19 NEGATIVE DESCRIPTION OF PROCEDURE THE PATIENT WAS BROUGHT TO THE PROCEDURE ROOM AND PLACED IN THE PRONE POSITION. THE LUMBOSACRAL AREA WAS CLEANED WITH BETADINE SOLUTION AND DRAPED ASEPTICALLY. THE PROCEDURE WAS DONE UNDER STERILE CONDITIONS. I CHECKED LATERALITY AND THE LEVEL WHERE THE PROCEDURE WAS GOING TO BE PERFORMED WITH THE PATIENT AND THE SUPPORTING STAFF AT THE MOMENT OF THE TIME OUT IN THE PROCEDURE ROOM. UNDER FLUOROSCOPIC GUIDANCE, THE TARGET POINT WAS SELECTED AT THE INTERLAMINAR LEVEL OF L5-S1. LIDOCAINE WAS USED TO NUMB THE SKIN AND THE SUBCUTANEOUS TISSUE BELOW IT. EPIDURAL TUOHY NEEDLE, 17-GAUGE, WAS ADVANCED UNDER FLUOROSCOPIC GUIDANCE AND FOLLOWING PATIENT FEEDBACK UNTIL THE EPIDURAL SPACE WAS REACHED 8 CM DEEP INTO THE SKIN BY THE LOSS OF RESISTANCE TECHNIQUE. ISOVUE M DYE 30%, 0.25 ML, WAS INJECTED SHOWING ADEQUATE SPREAD OF THE DYE. THEN, A SOLUTION OF 3 ML OF NORMAL SALINE WITH DEXAMETHASONE 10 MG WAS INJECTED SLOWLY FOLLOWING PATIENT FEEDBACK. THERE WAS NO EVIDENCE OF BLOOD, PARESTHESIA OR CEREBROSPINAL FLUID DURING THE PROCEDURE. THE PATIENT WAS SENT TO THE RECOVERY ROOM. THE PATIENT WAS MOVING THE EXTREMITIES AND DOING WELL. THERE WAS NO COMPLICATION DURING THE PROCEDURE. FLUOROSCOPY TIME WAS 6 SECONDS POST PROCEDURE NOTE THE PATIENT WILL BE SEEN IN A FOLLOW UP IN THE NEXT FEW WEEKS. I AM LOOKING FOR LONG LASTING PAIN RELIEF FOR THE PATIENT WITH THIS INJECTION. INSTRUCTIONS WERE GIVEN, QUESTIONS WERE ANSWERED, AND THE PATIENT EXPRESSED UNDERSTANDING AND AGREES WITH THE PLAN. I INSTRUCTED THE PATIENT TO STAY HOME, IF POSSIBLE, FOR A WEEK DUE TO COVID-19. I, SARA GONSALVES, DOCUMENTED THE ABOVE INFORMATION ACTING A SCRIBE FOR DR. ASHRAF. I HAVE REVIEWED THE ABOVE DOCUMENT, WRITTEN BY JENNIFER MIX, AND I VERIFY THAT IT IS ACCURATE PROCEDURE CODES 00422 LUMBAR/SACRAL W/ IMAGING DISPOSITION & COMMUNICATION FOLLOW UP F/UP WITH STONEMASON HELPER. 2 WEEKS (REASON: POST-PROCEDURE F/UP-LOW BACK PAIN) ELECTRONICALLY SIGNED BY STELLA ASHRAF MD, MD ON 02/29/2020 AT 06:21 PM EDT DISCLAIMER : THIS IS A VISIT SUMMARY EXTRACTED FROM THE [employer] CHART. IT IS NOT A COPY OF THE [employer] PROGRESS NOTE. LAURA
== END ==
LOC: M PAIN 10:15
PROVIDERS: ATTEND Anesthesiology
DX: M96.1 Postlaminectomy syndrome, not elsewhere classified (principal); M47.816 Spondylosis without myelopathy or radiculopathy, lumbar region; Z86.59 Personal history of other mental and behavioral disorders; I10 Essential (primary) hypertension; G47.00 Insomnia, unspecified; K21.9 Gastro-esophageal reflux disease without esophagitis; J44.9 Chronic obstructive pulmonary disease, unspecified; F17.210 Nicotine dependence, cigarettes, uncomplicated; Z88.0 Allergy status to penicillin; Z88.1 Allergy status to other antibiotic agents; Z91.018 Allergy to other foods; Z79.891 Long term (current) use of opiate analgesic; Z79.899 Other long term (current) drug therapy
CPT/HCPCS: 62323; J1100; Q0162; Q9967

== ENCOUNTER → 2020-03-27 | Outpatient (REF) | payer OTHER ==
[~2020-03-27] MED LIST changes: -GABA-282 PO; +GABA-843 PO; -ISOVUE-M 300 61% 15ML VIAL As Ordered ONE; -LIDOCAINE 1% SDV 30ML VIAL As Ordered ONE; -ONDANSETRON 4 MG ORAL DISINTEGRATING TAB As Ordered ONE; -dexameTHASONE 10MG/1ML VIAL PRES.FREE (J1100 PER 1MG) As Ordered ONE; -diazePAM 5MG TABLET As Ordered ONE; -oxyCODONE 5MG TAB As Ordered ONE
[2020-03-27 17:18] LABS: ALBUMIN 3.4 GM/DL (3.2-5.2); ALT/SGPT 18 U/L (12-78); BILIRUBIN,TOTAL 0.3 MG/DL (0.2-1.0); BLOOD UREA NITROGEN 7 MG/DL (7-18); CARBON DIOXIDE LEVEL 30 MEQ/L (21-32); CHLORIDE LEVEL 100 MEQ/L (98-107); GLOMERULAR FILTRATION RATE > 60.0 (>51); GLUCOSE, FASTING 93 MG/DL (70-100); SODIUM LEVEL 136 MEQ/L (136-145); TOTAL PROTEIN 6.7 GM/DL (6.4-8.2)
== END ==
LOC: M SFHCCLAY 11:56
PROVIDERS: ATTEND Physician Assistant
DX: E87.6 Hypokalemia (principal)

== ENCOUNTER → 2020-04-17 | Outpatient (CLI) | payer OTHER ==
--- NOTE | 2020-04-19 01:21 | ECWPNPC ---
PATIENT NAME: JOI MCCLAIN : 1965 GENDER: FEMALE VISIT DATE: 04/17/2020 DISCHARGE DATE: 04/17/20 1108 VISIT LOCKED DATE TIME: PHYSICIAN: REUBEN CRONIN RESOURCE: REUBEN CRONIN REASON FOR APPOINTMENT 1. POST CAUDAL HISTORY OF PRESENT ILLNESS GENERAL: 55-YEAR-OLD FEMALE IN FOR POST LUMBAR EPIDURAL FOLLOW-UP. SHE RATES HER PAIN PREPROCEDURE AT A 10 OUT OF 10 AND POSTPROCEDURE AT A 1 OUT OF 10X2 WEEKS. SHE RATES HER PAIN CURRENTLY AT A 10 OUT OF 10 AND DESCRIBES IT ACHING, BURNING, SHARP, STABBING, AND SHOOTING. WHEN ASKED SHE ADMITS THAT MOST HER PAIN IS LOCATED IN HER RIGHT HIP. FALL RISK SCREENING: SCREENING :NO FALLS REPORTED IN THE LAST YEAR PAIN SCREENING: PATIENT HAS A COMPLAINT OF ACUTE OR CHRONIC PAIN :YES [id number]/10, POST PROCEDURE-10/29 FOR 2WEEKS. LOCATION OF PAIN:LOW BACK, LEFT HIP, RIGHT HIP INTENSITY OF PAIN (SCALE OF 1 TO 10):10 WHAT DOES YOUR PAIN FEEL LIKE:ACHING, BURNING, SHARP, STABBING, SHOOTING DURATION:CONTINOUS, CONSTANT, ALL DAY, AWAKENS FROM SLEEP PAIN IS INCREASED BY:ACTIVITIES, PROLONGED STANDING PAIN IS DECREASED BY: HEATING PAD, ELEVATE LEGS PAIN HAS INTERFERED WITH THE FOLLOWING:MOOD, HOUSEWORK, SLEEP, RELATIONSHIP WITH OTHERS, ENJOYMENT OF LIFE PLAN/GOALS/TREATMENT/INTERVENTION/FOLLOW UP:SEE PLAN NURSING NOTE: -. PAIN CENTER INTAKE QUESTIONS: DO YOU HAVE A HISTORY OF MRSA? :NO DO YOU TAKE A BLOOD THINNERS? :NO DO YOU HAVE ANY BLEEDING DISORDERS? :NO ANY NEW NUMBNESS OR WEAKNESS IN YOUR LEGS OR ARMS? :NO ANY PACEMAKER,DEFIBRILLATOR, OR DORSAL COLUMN STIMULATOR? :NO DO YOU HAVE ANY RASHES OR OPEN SORES? :NO ARE YOU ALLERGIC TO IV DYE? :NO ARE YOU DIABETIC? :NO ANY NEW PROBLEMS WITH YOUR MEDICATIONS? :NO HAVE YOU RECEIVED A VACCINE IN THE PAST 30 DAYS? :NO DO YOU PLAN TO RECEIVE A VACCINE IN THE NEXT 21 DAYS? :NO DO YOU NEED ANY PRESCRIPTION? :NO DO YOU TAKE ANY IMMUNOSUPPRESSIVE MEDICATIONS? :NO IS THERE A CHANCE YOU COULD BE ? :NO ARE YOU BREAST FEEDING? :NO CURRENT MEDICATIONS TAKING IMITREX 50 MG TABLET 1 TABLET NEEDED ONE TIME, MAY REPEAT IN 2 HOURS IF HEADACHE STILL PRESENT, MDD 2 ORALLY DIRECTED TAKING ATORVASTATIN CALCIUM 10MG TABLET 1 TABLET ORALLY ONCE A DAY TAKING ERGOCALCIFEROL 76579 UNIT CAPSULE 1 CAPSULE ORALLY ONCE A WEEK TAKING ZOFRAN 4MG TABLET 2 TABLETS ORALLY BID PRN TAKING OMEPRAZOLE 40MG CAPSULE DELAYED RELEASE TAKE ONE CAPSULE BY MOUTH DAILY TAKING CYMBALTA 60 MG CAPSULE DELAYED RELEASE PARTICLES 1 CAPSULE ORALLY ONCE A DAY TAKING POTASSIUM CHLORIDE MARY ANNE ER 20 MEQ TABLET EXTENDED RELEASE 1 TABLET WITH FOOD ORALLY ONCE A DAY TAKING LASIX 20 MG TABLET 1 TABLET ORALLY ONCE A DAY TAKING TRAZODONE HCL 100 MG TABLET 1 TABLET AT BEDTIME ORALLY ONCE A DAY TAKING CELECOXIB 200 MG CAPSULE TAKE ONE CAPSULE BY MOUTH EVERY DAY WITH FOOD ORAL DAILY TAKING GABAPENTIN 300 MG CAPSULE 1 ORALLY 1 IN AM,1 MIDDAY AND 2 AT HS TAKING BACLOFEN 20 MG TABLET 1 TABLET ORALLY 1 Q6H QID TAKING MOVANTIK 25 MG TABLET 1 TABLET IN THE MORNING ORALLY ONCE A DAY TAKING MORPHINE SULFATE 15 MG TABLET 1 TAB ORALLY Q6H PRN MDD4 NOT-TAKING LINZESS 145MCG CAPSULE 1 CAPSULE ORALLY ONCE A DAY NEEDED NOT-TAKING CLONIDINE HCL 0.1 MG TABLET 1 TABLET AT BEDTIME ORALLY ONCE A DAY MEDICATION LIST REVIEWED AND RECONCILED WITH THE PATIENT PAST MEDICAL HISTORY DEPRESSION HYPERTENSION HYPERLIPIDEMIA INSOMNIA IBS REFLUX CHRONIC BACK PAIN ATHRITIS IN BACK BILATERAL HIP BURSITIS, RIGHT > LEFT NOCTURIA COPD-UNSPECIFIED PUMONARY NODULES-FOLLOWED BY [facility] DILATED COMMON BILE DUCT FROM 1.2 CM ON DECEMBER 2014 STUDY TO 1.7 CM 10/21/2019 PER PT MASS ON ADRENAL GLAND ALLERGIES PENICILLIN (FOR ALLERGIES USE ONLY): HIVES - ALLERGY ANCEF: HIVES - ALLERGY STRAWBERRIES/MANGOS: SEVERE HIVES, ITCHING - ALLERGY - ONSET DATE 01/10/2020 SURGICAL HISTORY BACK SURGERY 2009 GALL BLADDER 1988 HYSTERECTOMY 1993 LEFT BREAST BIOPSY AGE 14 RIGHT BREAST BIOPSY 2003 FAMILY HISTORY FATHER: , DIAGNOSED WITH UNSPECIFIED HEART DISEASE MOTHER: , UNSPECIFIED CEREBRAL ARTERY OCCLUSION WITH CEREBRAL INFARCTION, OTHER MALIGNANT NEOPLASM OF UNSPECIFIED SITE, OTHER SPECIFIED CONDITIONS INFLUENCING HEALTH STATUS, UNSPECIFIED HEART DISEASE MOTHER-ALZHEIMER\NMOTHER,AUNT,GRANDMOTHER ALL HAD BREAST CA. SOCIAL HISTORY GENERAL: TOBACCO USE ARE YOU A:CURRENT SMOKER ARE YOU INTERESTED IN QUITTING?NOT READY TO QUIT COUNSELED THE PATIENT ON SMOKING EFFECTS, EDUCATION [id number]/29/2020 HOW MANY CIGARETTES A DAY DO YOU SMOKE?6-10 HOW SOON AFTER YOU WAKE UP DO YOU SMOKE YOUR FIRST CIGARETTE?6-30 MIN HOW OFTEN DO YOU SMOKE CIGARETTES?EVERY DAY PATIENT COUNSELED ON THE DANGERS OF TOBACCO USE AND URGED TO QUIT:04/17/2020 ADDITIONAL FINDINGS: TOBACCO USER NONE SMOKING CESSATION INFORMATION GIVEN04/17/2020 VAPORNO E-CIGARETTENO LATEX QUESTIONNAIRE LATEX ALLERGY : HAVE YOU EVER DEVELOPED ANY TYPE OF REACTION AFTER HANDLING LATEX PRODUCTS SUCH RUBBER GLOVES, CONDOMS, DIAPHRAGMS, BALLOONS, SOCKS, OR UNDERWEAR?NO LATEX ALLERGY : HAVE YOU EVER DEVELOPED ANY TYPE OF REACTION DURING OR AFTER DENTAL APPOINTMENT, VAGINAL/RECTAL EXAMINATION, SURGICAL PROCEDURE, OR ANY OTHER EXPOSURE?NO DATE ASKED : 03/16/2020 LATEX RISK : HAVE YOU EVER HAD ANY DIFFICULTY BREATHING OR HIVES AFTER EATING OR HANDLING ANY FRUITS, OR VEGETABLES; SUCH KIWI, BANANAS, STONE FRUITS, OR CHESTNUTSYES - PLEASE INDICATE : MANGOS LATEX RISK : DO YOU HAVE A PREVIOUS PERSONAL HISTORY OF MORE THAN NINE SURGERIES, SPINA BIFIDA, OR REPEATED CATHERIZATIONS? NO LATEX RISK : ARE YOU FREQUENTLY EXPOSED TO LATEX PRODUCTS IN YOUR OCCUPATION?NO BMI CARE GOAL FOLLOW-UP ABOVE NORMAL BMI FOLLOW-UPDIETARY MANAGEMENT EDUCATION, GUIDANCE, AND COUNSELING ALCOHOL SCREENING DID YOU HAVE A DRINK CONTAINING ALCOHOL IN THE PAST YEAR?NO POINTS0 INTERPRETATIONNEGATIVE RECREATIONAL DRUG USE DRUG USE?NO CAFFEINE CAFFEINE USE?YES COFFEE,DIET PEPSI SEXUAL HX HAD SEX IN THE LAST 12 MONTHS (VAGINAL, ORAL, OR ANAL)?YES WITHMEN ONLY HAVE YOU EVER HAD AN STD?NO HIV / HEP-C SCREENING HIV TEST OFFERED TO PATIENT:YES DATE OFFERED:09/06/2019 CONSENT ON FILE TEST ACCEPTED:NO HEP-C TEST OFFERED TO PATIENT:YES DATE OFFERED:09/06/2019 CONSENT ON FILE REASON:PATIENT DECLINED TEST ACCEPTED:NO REASON:PATIENT DECLINED BROCHURE PROVIDED TO PATIENTNO [id number] BAHRAINI. EDUCATION LEVEL OF EDUCATION:FINISHED HIGH SCHOOL 11TH GRADE LEARNING BARRIERS / SPECIAL NEEDS CHANGE FROM LAST VISIT?NO 03/16/2020 BARRIERS TO LEARNING?NO HEARING IMPAIRED?NO VISION IMPAIRED?YES COGNITIVELY IMPAIRED?NO :CORRECTIVE LENSES READING READINESS TO LEARN?YES LEARNING PREFERENCES?NO LEARNING CAPABILITIES PRESENT?YES EMOTIONAL BARRIERS?NO SPECIAL DEVICES?NO EMPLOYEE RELATIONS DIRECTOR NEEDED?NO DOMESTIC VIOLENCE DO YOU FEEL SAFE IN YOUR ENVIRONMENT?YES DIET: REGULAR. MARITAL STATUS: . NEW PATIENT PAIN DIARY PATIENT DESCRIBES PAIN :ACHING, BURNING, HAVE IT ALL THE TIME, SHARP, STABBING, TENDER, THROBBING, SORE, SHOOTING FROM 0-10, WHAT LEVEL IS YOUR PAIN TODAY?9 PRECIPITATING FACTORS NOTHING, IT IS JUST ALWAYS THERE ALLEVIATING FACTORS INJECTIONS IMPACT ON FUNCTION REDUCES DAILY ACTIVITY PAIN CLINIC PFS, CLERGY, PUBLIC HEALTH REFERRALS PFS REFERRAL NEEDED?NO CLERGY REFERRAL NEEDED?NO PUBLIC HEALTH REFERRAL NEEDED?NO WAS THE PROVIDER NOTIFIED OF ANY PERTINENT INFO?YES N/A HAS THE PATIENT BEEN EDUCATED REGARDING HIS/HER PLAN OF CARE?YES HAS THE PATIENT BEEN EDUCATED REGARDING PAIN, THE RISK FOR PAIN, THE IMPORTANCE OF EFFECTIVE PAIN MANAGEMENT, AND THE PAIN ASSESSMENT PROCESS?YES ADVANCE DIRECTIVE ADVANCE DIRECTIVE DISCUSSED WITH PATIENT:YES PT DOES NOT HAVE ANY ADVANCED DIRECTIVES AND SHE DECLINES INFORMATION ON HCP AT THIS TIME. THIS PATIENT LIVES AT HOME WITH HER AND GRAND-DAUGHTER, (WHOM SHE INTENDS TO ADOPT). SHE SLEEPS OKAY ONLY. SHE FRACTURED RIGHT ELBOW, RIGHT CHEEK FRACTURE, AND LEFT WRIST IN PAST. NO HISTORY OF AN EATING DISORDER. SHE DENIES HISTORY OF PHYSICAL/SEXUAL ABUSE. SHE WEARS SEAT BELTS. SHE IS CURRENT WITH IMMUNIZATIONS AND TETANUS. SHE IS UP TO DATE WITH DENTAL AND EYE EXAMINATIONS. SHE TAKES NO VITAMINS OR CALCIUM. HOSPITALIZATION/MAJOR DIAGNOSTIC PROCEDURE FOR SURGERIES CHILD X 2 SMC 2-3 DAY FOR HYPOXIA 10/21/2019 REVIEW OF SYSTEMS CONSTITUTIONAL: ANY RECENT FEVER NO . CHILLS NO . WEIGHT CHANGE OF UNKNOWN REASONS NO . GASTROENTEROLOGY: NEW UNEXPLAINABLE CHANGES IN BOWEL CONTROL NO . CONSTIPATION NO . GENITOURINARY: ANY NEW CHANGE IN BLADDER CONTROL? NO . NEUROLOGY: NEW ONSET DIZZINESS OR NEUROLOGICAL CHANGES NOT MENTIONED NO . NEW NUMBNESS OR PAIN PATTERNS NOT MENTIONED AND PERTINENT TO TODAY'S VISIT NO . CARDIOLOGY: NEW CHEST PRESSURE NO . NEW CHEST PAIN NO . RESPIRATORY: UNEXPLAINABLE COUGH NO . NEW SHORTNESS OF BREATH NO . VITAL SIGNS WT 145.0 LBS, HT 63 IN, BMI 25.68 INDEX, BP 118/65 MM HG, HR 87 /MIN, RR 18 /MIN, TEMP 96.7 F, OXYGEN SAT % 96%, SAFE IN ENV? 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 EXAMINATION GENERAL EXAMINATION: GENERALNO ACUTE DISTRESS, WELL NOURISHED AND HYDRATED. PSYCHAPPROPRIATE MOOD AND AFFECT . LUNGS:CLEAR TO AUSCULTATION BILATERALLY, NO WHEEZES, RHONCHI, RALES. HEART:NO MURMURS, REGULAR RATE AND RHYTHM. MUSCULOSKELETAL:POINT TENDER RIGHT GREATER TROCHANTER . ASSESSMENTS TROCHANTERIC BURSITIS, RIGHT HIP - M70.61 (PRIMARY) TREATMENT TROCHANTERIC BURSITIS, RIGHT HIP NOTES: RIGHT GREATER TROCHANTERIC BURSAL INJECTION. CLINICAL NOTES: 55 YEAR OLD FEMALE IN FOR POST EPIDURAL FOLLOW-UP. GIVEN PRESENTING SYMPTOMS AND RESULTS OF PHYSICAL EXAMINATION RECOMMEND RIGHT GREATER TROCHANTERIC BURSAL INJECTION WITH POSTPROCEDURAL FOLLOW-UP. WE DID DISCUSS POTENTIAL OPIATE ROTATION WHICH WILL BE DISCUSSED WITH DR. ASHRAF PRIOR TO INITIATION. PATIENT HAS EXPRESSED UNDERSTANDING OF AND WAS IN AGREEMENT WITH TREATMENT PLAN. GIVEN TIME TO ASK QUESTIONS AND EXPRESS CONCERNS. , ISTOP REGISTRY REVIEWED AND DEMONSTRATES COMPLLIANCE. (REF # [id number] ) BRINGS IN MEDICATIONS WHICH IS APPROPRIATE FOR WHAT WAS DISPENSED. RECENT URINE TOXICOLOGY REVIEWED. NO UNAUTHORIZED MEDICATIONS. NO ILLICIT SUBSTANCES AND PRESCRIBED MEDICATIONS WERE PRESENT. PROCEDURE CODES [id number] ESTABILISHED PATIENT [facility] CHARGE DISPOSITION & COMMUNICATION FOLLOW UP POSTPROCEDURE (REASON: RIGHT GREATER TROCHANTERIC BURSAL INJECTION) ELECTRONICALLY SIGNED BY MERI ZHENG ON 04/18/2020 AT 07:48 AM EDT DISCLAIMER : THIS IS A VISIT SUMMARY EXTRACTED FROM THE [employer] CHART. IT IS NOT A COPY OF THE [employer] PROGRESS NOTE. LAURA
== END ==
LOC: M PAIN 10:00
PROVIDERS: ATTEND Family Medicine
DX: M70.61 Trochanteric bursitis, right hip (principal); Z79.891 Long term (current) use of opiate analgesic; Z79.899 Other long term (current) drug therapy; Z88.0 Allergy status to penicillin; Z88.8 Allergy status to other drugs, medicaments and biological substances; Z91.018 Allergy to other foods; F17.210 Nicotine dependence, cigarettes, uncomplicated

== ENCOUNTER → 2020-04-28 | Outpatient (CLI) | payer OTHER | LOC: M LABSMTC 13:04 | PROVIDERS: ATTEND Anesthesiology | DX: Z01.818 Encounter for other preprocedural examination (principal); Z11.59 Encounter for screening for other viral diseases | CPT/HCPCS: C9803; U0003 ==

== ENCOUNTER → 2020-05-02 | Outpatient (CLI) | payer OTHER ==
[~2020-05-02] MED LIST changes: +BUPIVACAINE HCL 0.25% 30ML VIAL As Ordered ONE; +ISOVUE-M 300 61% 15ML VIAL As Ordered ONE; +LIDOCAINE 1% SDV 30ML VIAL As Ordered ONE; +ONDANSETRON 4 MG ORAL DISINTEGRATING TAB As Ordered ONE; +TRIAMCINOLONE ACETONIDE SUSP 40 MG/ML VIAL (J3301) As Ordered ONE; +diazePAM 5 MG TAB As Ordered ONE; +oxyCODONE 5MG TAB As Ordered ONE
--- NOTE | 2020-05-03 05:46 | REP ---
C-ARM VIEWS PROXIMAL RIGHT FEMUR: A C-arm view of the proximal right femur is performed during injection by Dr. Mcgee. Needle overlies the proximal right femur in the region of the greater trochanter. 17 seconds fluoroscopy time utilized. Electronically Signed by Costa Mayen MD 05/03/2020 11:13 P
--- NOTE | 2020-05-05 02:06 | ECWPNPC ---
PATIENT NAME: JOI MCCLAIN : 1965 GENDER: FEMALE VISIT DATE: 05/02/2020 DISCHARGE DATE: 05/02/20 1056 VISIT LOCKED DATE TIME: PHYSICIAN: STELLA ASHRAF MD RESOURCE: STELLA ASHRAF MD REASON FOR APPOINTMENT 1. TROCHANTERIC BURSAL INJECTION HISTORY OF PRESENT ILLNESS GENERAL: -. FALL RISK SCREENING: SCREENING :NO FALLS REPORTED IN THE LAST YEAR PAIN SCREENING: PATIENT HAS A COMPLAINT OF ACUTE OR CHRONIC PAIN :YES LOCATION OF PAIN:LOW BACK, RIGHT HIP, LEG(S) RIGHT LEG INTENSITY OF PAIN (SCALE OF 1 TO 10):10 WHAT DOES YOUR PAIN FEEL LIKE:ACHING, BURNING, CONTINOUS, SHARP, STABBING DURATION:CONTINOUS PAIN IS INCREASED BY:ACTIVITIES, PROLONGED STANDING PAIN IS DECREASED BY:OTHERS LYING FLAT ON HEATING PAD WITH FEET ELEVATED NURSING NOTE: -. PAIN CENTER INTAKE QUESTIONS: DO YOU HAVE A HISTORY OF MRSA? :NO DO YOU TAKE A BLOOD THINNERS? :NO DO YOU HAVE ANY BLEEDING DISORDERS? :NO ANY NEW NUMBNESS OR WEAKNESS IN YOUR LEGS OR ARMS? :YES BILATERAL KNESS HAVE INCREASED WEAKNESS ANY PACEMAKER,DEFIBRILLATOR, OR DORSAL COLUMN STIMULATOR? :NO DO YOU HAVE ANY RASHES OR OPEN SORES? :NO ARE YOU ALLERGIC TO IV DYE? :NO ARE YOU DIABETIC? :NO ANY NEW PROBLEMS WITH YOUR MEDICATIONS? :NO HAVE YOU RECEIVED A VACCINE IN THE PAST 30 DAYS? :NO DO YOU PLAN TO RECEIVE A VACCINE IN THE NEXT 21 DAYS? :NO DO YOU TAKE ANY IMMUNOSUPPRESSIVE MEDICATIONS? :NO ANY HISTORY OF SEIZURES? :NO ANY HISTORY OF CARDIAC ISSUES OR EVENTS? :NO DO YOU HAVE SLEEP APNEA? :NO ANY RECENT HEAD INJURY? :NO DO YOU HAVE ANY NEW INFECTIONS? :NO IS THERE A CHANCE YOU COULD BE ? :NO ARE YOU BREAST FEEDING? :NO WHEN DID YOU LAST EAT? : 05/01/20201999 WHEN DID YOU LAST DRINK? : 05/02/2020 0300 WHAT DID YOU LAST DRINK? : WHITE [place] TE[place] NAME OF PERSON DRIVING YOU HOME? : - SAMIA DO YOU HAVE ANY OTHER QUESTIONS OR CONCERNS? : - CURRENT MEDICATIONS TAKING IMITREX 50 MG TABLET 1 TABLET NEEDED ONE TIME, MAY REPEAT IN 2 HOURS IF HEADACHE STILL PRESENT, MDD 2 ORALLY DIRECTED, NOTES: IT HAS BEEN A WHILE TAKING ATORVASTATIN CALCIUM 10MG TABLET 1 TABLET ORALLY ONCE A DAY, NOTES: 05/01/20202099 TAKING ERGOCALCIFEROL 61291 UNIT CAPSULE 1 CAPSULE ORALLY ONCE A WEEK, NOTES: FRIDAY TAKING OMEPRAZOLE 40MG CAPSULE DELAYED RELEASE TAKE ONE CAPSULE BY MOUTH DAILY, NOTES: 05/01/20202099 TAKING CYMBALTA 60 MG CAPSULE DELAYED RELEASE PARTICLES 1 CAPSULE ORALLY ONCE A DAY, NOTES: 05/01/2020 07 TAKING POTASSIUM CHLORIDE MARY ANNE ER 20 MEQ TABLET EXTENDED RELEASE 1 TABLET WITH FOOD ORALLY ONCE A DAY, NOTES: 05/01/2020 07 TAKING LASIX 20 MG TABLET 1 TABLET ORALLY ONCE A DAY, NOTES: 05/01/2020 07 TAKING TRAZODONE HCL 100 MG TABLET 1 TABLET AT BEDTIME ORALLY ONCE A DAY, NOTES: 05/01/20202099 TAKING CELECOXIB 200 MG CAPSULE TAKE ONE CAPSULE BY MOUTH EVERY DAY WITH FOOD ORAL DAILY, NOTES: 05/01/2020 1800 TAKING GABAPENTIN 300 MG CAPSULE 1 ORALLY 1 IN AM,1 MIDDAY AND 2 AT HS, NOTES: 05/01/20202099 TAKING BACLOFEN 20 MG TABLET 1 TABLET ORALLY 1 Q6H QID, NOTES: 05/01/20202099 TAKING MOVANTIK 25 MG TABLET 1 TABLET IN THE MORNING ORALLY ONCE A DAY, NOTES: 05/01/2020 0700 TAKING MORPHINE SULFATE 15 MG TABLET 1 TAB ORALLY Q6H PRN MDD4, NOTES: 05/02/2020 0300 TAKING ZOFRAN 4MG TABLET 2 TABLETS ORALLY BID PRN, NOTES: 05/01/2020 1300 NOT-TAKING LINZESS 145MCG CAPSULE 1 CAPSULE ORALLY ONCE A DAY NEEDED NOT-TAKING CLONIDINE HCL 0.1 MG TABLET 1 TABLET AT BEDTIME ORALLY ONCE A DAY MEDICATION LIST REVIEWED AND RECONCILED WITH THE PATIENT PAST MEDICAL HISTORY DEPRESSION HYPERTENSION HYPERLIPIDEMIA INSOMNIA IBS REFLUX CHRONIC BACK PAIN ATHRITIS IN BACK BILATERAL HIP BURSITIS, RIGHT > LEFT NOCTURIA COPD-UNSPECIFIED PUMONARY NODULES-FOLLOWED BY [facility] DILATED COMMON BILE DUCT FROM 1.2 CM ON DECEMBER 2014 STUDY TO 1.7 CM 10/21/2019 PER PT MASS ON ADRENAL GLAND ALLERGIES PENICILLIN (FOR ALLERGIES USE ONLY): HIVES - ALLERGY ANCEF: HIVES - ALLERGY STRAWBERRIES/MANGOS: SEVERE HIVES, ITCHING - ALLERGY - ONSET DATE 01/10/2020 SURGICAL HISTORY BACK SURGERY 2009 GALL BLADDER 1989 HYSTERECTOMY 1993 LEFT BREAST BIOPSY AGE 14 RIGHT BREAST BIOPSY 2003 FAMILY HISTORY FATHER: , DIAGNOSED WITH UNSPECIFIED HEART DISEASE MOTHER: , UNSPECIFIED CEREBRAL ARTERY OCCLUSION WITH CEREBRAL INFARCTION, OTHER MALIGNANT NEOPLASM OF UNSPECIFIED SITE, OTHER SPECIFIED CONDITIONS INFLUENCING HEALTH STATUS, UNSPECIFIED HEART DISEASE MOTHER-ALZHEIMER\NMOTHER,AUNT,GRANDMOTHER ALL HAD BREAST CA. SOCIAL HISTORY GENERAL: TOBACCO USE ARE YOU A:CURRENT SMOKER ARE YOU INTERESTED IN QUITTING?NOT READY TO QUIT COUNSELED THE PATIENT ON SMOKING EFFECTS, EDUCATION [id number]/29/2020 HOW MANY CIGARETTES A DAY DO YOU SMOKE?6-10 HOW SOON AFTER YOU WAKE UP DO YOU SMOKE YOUR FIRST CIGARETTE?6-30 MIN HOW OFTEN DO YOU SMOKE CIGARETTES?EVERY DAY PATIENT COUNSELED ON THE DANGERS OF TOBACCO USE AND URGED TO QUIT:04/17/2020 ADDITIONAL FINDINGS: TOBACCO USER NONE SMOKING CESSATION INFORMATION GIVEN05/02/2020 VAPORNO E-CIGARETTENO LATEX QUESTIONNAIRE LATEX ALLERGY : HAVE YOU EVER DEVELOPED ANY TYPE OF REACTION AFTER HANDLING LATEX PRODUCTS SUCH RUBBER GLOVES, CONDOMS, DIAPHRAGMS, BALLOONS, SOCKS, OR UNDERWEAR?NO LATEX ALLERGY : HAVE YOU EVER DEVELOPED ANY TYPE OF REACTION DURING OR AFTER DENTAL APPOINTMENT, VAGINAL/RECTAL EXAMINATION, SURGICAL PROCEDURE, OR ANY OTHER EXPOSURE?NO LATEX RISK : HAVE YOU EVER HAD ANY DIFFICULTY BREATHING OR HIVES AFTER EATING OR HANDLING ANY FRUITS, OR VEGETABLES; SUCH KIWI, BANANAS, STONE FRUITS, OR CHESTNUTSYES - PLEASE INDICATE : MANGOS LATEX RISK : DO YOU HAVE A PREVIOUS PERSONAL HISTORY OF MORE THAN NINE SURGERIES, SPINA BIFIDA, OR REPEATED CATHERIZATIONS? NO LATEX RISK : ARE YOU FREQUENTLY EXPOSED TO LATEX PRODUCTS IN YOUR OCCUPATION?NO DATE ASKED : 05/02/2020 BMI CARE GOAL FOLLOW-UP ABOVE NORMAL BMI FOLLOW-UPDIETARY MANAGEMENT EDUCATION, GUIDANCE, AND COUNSELING ALCOHOL SCREENING DID YOU HAVE A DRINK CONTAINING ALCOHOL IN THE PAST YEAR?NO POINTS0 INTERPRETATIONNEGATIVE RECREATIONAL DRUG USE DRUG USE?NO CAFFEINE CAFFEINE USE?YES COFFEE,DIET PEPSI SEXUAL HX HAD SEX IN THE LAST 12 MONTHS (VAGINAL, ORAL, OR ANAL)?YES WITHMEN ONLY HAVE YOU EVER HAD AN STD?NO HIV / HEP-C SCREENING HIV TEST OFFERED TO PATIENT:YES DATE OFFERED:09/06/2019 CONSENT ON FILE TEST ACCEPTED:NO HEP-C TEST OFFERED TO PATIENT:YES DATE OFFERED:09/06/2019 CONSENT ON FILE REASON:PATIENT DECLINED TEST ACCEPTED:NO REASON:PATIENT DECLINED BROCHURE PROVIDED TO PATIENTNO TENRIISM [id number] SIKHISM LANGUAGE GREEK. EDUCATION LEVEL OF EDUCATION:FINISHED HIGH SCHOOL 11TH GRADE LEARNING BARRIERS / SPECIAL NEEDS CHANGE FROM LAST VISIT?NO 03/16/2020 BARRIERS TO LEARNING?NO HEARING IMPAIRED?NO VISION IMPAIRED?YES COGNITIVELY IMPAIRED?NO :CORRECTIVE LENSES READING READINESS TO LEARN?YES LEARNING PREFERENCES?NO LEARNING CAPABILITIES PRESENT?YES EMOTIONAL BARRIERS?NO SPECIAL DEVICES?NO INNOVATIONS PARAPROFESSIONAL NEEDED?NO DOMESTIC VIOLENCE DO YOU FEEL SAFE IN YOUR ENVIRONMENT?YES DIET: REGULAR. MARITAL STATUS: . PAIN CLINIC PFS, CLERGY, PUBLIC HEALTH REFERRALS PFS REFERRAL NEEDED?NO CLERGY REFERRAL NEEDED?NO PUBLIC HEALTH REFERRAL NEEDED?NO WAS THE PROVIDER NOTIFIED OF ANY PERTINENT INFO?YES N/A HAS THE PATIENT BEEN EDUCATED REGARDING HIS/HER PLAN OF CARE?YES HAS THE PATIENT BEEN EDUCATED REGARDING PAIN, THE RISK FOR PAIN, THE IMPORTANCE OF EFFECTIVE PAIN MANAGEMENT, AND THE PAIN ASSESSMENT PROCESS?YES ADVANCE DIRECTIVE ADVANCE DIRECTIVE DISCUSSED WITH PATIENT:YES PT DOES NOT HAVE ANY ADVANCED DIRECTIVES AND SHE DECLINES INFORMATION ON HCP AT THIS TIME. THIS PATIENT LIVES AT HOME WITH HER AND GRAND-DAUGHTER, (WHOM SHE INTENDS TO ADOPT). SHE SLEEPS OKAY ONLY. SHE FRACTURED RIGHT ELBOW, RIGHT CHEEK FRACTURE, AND LEFT WRIST IN PAST. NO HISTORY OF AN EATING DISORDER. SHE DENIES HISTORY OF PHYSICAL/SEXUAL ABUSE. SHE WEARS SEAT BELTS. SHE IS CURRENT WITH IMMUNIZATIONS AND TETANUS. SHE IS UP TO DATE WITH DENTAL AND EYE EXAMINATIONS. SHE TAKES NO VITAMINS OR CALCIUM. HOSPITALIZATION/MAJOR DIAGNOSTIC PROCEDURE FOR SURGERIES CHILD X 2 [facility] 2-3 DAY FOR HYPOXIA 10/21/2019 VITAL SIGNS WT 146.4 LBS, HT 63 IN, BMI 25.93 INDEX, BP 120/68 MM HG, HR 90 /MIN, RR 18 /MIN, TEMP 96.6 F, OXYGEN SAT % 96%, SAFE IN ENV? (Y/N) YES, REVIEWED BY: SARA. ASSESSMENTS TROCHANTERIC BURSITIS, RIGHT HIP - M70.61 (PRIMARY) TREATMENT TROCHANTERIC BURSITIS, RIGHT HIP [facility] FLUORO GUIDANCE (PAIN)[id number] MEDICATION: ZOFRAN ODT TAB 4MG (ONDANSETRON)JAMIL BISHOP RN 05/02/2020 9:11:23 AM > VERFIED. ARIADNA RAMIREZ 05/02/2020 9:13:45 AM > LOT#: [id number] EXP: MAY 2023 ARIADNA RAMIREZ 05/02/2020 9:18:02 AM > ADMINIATERED MEDICATION: VALIUM TAB 5MG ORALLY (DIAZEPAM)JAMIL BISHOP RN 05/02/2020 9:11:53 AM > VERIFIED. ARIADNA RAMIREZ 05/02/2020 9:14:22 AM > LOT#[id number] EXP: 12/10 ARIADNA RAMIREZ 05/02/2020 9:18:24 AM > ADMINIATERED MEDICATION: OXYCODONE HCL TAB 5MG ORALLY JAMIL BISHOP RN 05/02/2020 9:12:11 AM > VERIFIED. ARIADNA RAMIREZ 05/02/2020 9:14:55 AM > LOT# [id number] EXP: 11/2021 ARIADNA RAMIREZ 05/02/2020 9:18:43 AM > ADMINISTERED PROCEDURES PAIN NURSING RECORD PRE-PROCEDURE IV SITE N/A, PRE-PROCEDURE ORAL MEDICATIONS VALIUM 5MG PO AT 0918 BY Everett LEONARDO RN OXYCODONE 5 MG PO AT 0918 BY Everett LEONARDO RN ZOFRAN 4 MG SL AT 0918 BY Everett LEONARDO RN PROCEDURE IN ROOM 0935, PHYSICIAN IN ROOM 0952, START 0956, FINISH 1011, PHYSICIAN OUT OF ROOM 1013, OUT OF ROOM 1025, STEROID KENALOG, O2 RA, ECG NORMAL SINUS, PATIENT SHIELDED YES, SAFETY STRAP YES, PREP CHLOROPREP BY Everett LEONARDO RN, IV INFUSED N/A, DRESSING TEGADERM BY DR ASHRAF LOC: ARIADNA RAMIREZ 05/02/2020 9:49:04 AM > , 1. ALERT, ORIENTED RESP: ARIADNA RAMIREZ 05/02/2020 9:49:14 AM > , 1. REGULAR, NO DYSPNEA COLOR: ARIADNA RAMIREZ 05/02/2020 9:49:29 AM > , 1. PINK SKIN: ARIADNA RAMIREZ 05/02/2020 9:49:34 AM > , 1. WARM, DRY POSITION: ARIADNA RAMIREZ 05/02/2020 9:49:39 AM > , 3. LATERAL- LEFT SIDE LYING VITALS: ARIADNA RAMIREZ 05/02/2020 0939> 108/57-72-18-92% ARIADNA RAMIREZ 05/02/2020 0945> 107/59-71-18-91% ARIADNA RAMIREZ 05/02/2020 1000> 114/64-74-18-91% ARIADNA RAMIREZ 05/02/2020 1015> 111/65-70-18-90% ARIADNA RAMIREZ 05/02/2020 1056> 113/56-71-18-92% NOTES ARIADNA RAMIREZ 05/02/2020 10:58:21 AM > PATIENT NOTED TO HAVE NSR ON MONITOR BEFORE AND DURING PROCEDURE. PATIENT WAS ALSO NOTED TO HAVE PERIODS OF BIGEMINY AND PVCS DURING PROCEDURE. DR ASHRAF AWARE. DR ASHRAF SPOKE WITH PATIENT'S PCP Nathan MCLAIN TO NOTIFY OF EVENTS DURING PROCEDURE. DISCHARGE: POST PAIN 0/10- LOW BACK AND RIGHT HIP, DRESSING SITE DRY AND INTACT, IV N/A, GAIT WHEELCHAIR, TEACHING COMPLETED, PATIENT ACKNOWLEDGES UNDERSTANDING YES, PATIENT DISCHARGED AT 1057 PRE PROCEDURE DIAGNOSIS BURSITIS AT THE RIGHT GREATER TROCHANTER OF THE FEMUR POST PROCEDURE DIAGNOSIS BURSITIS AT THE RIGHT GREATER TROCHANTER OF THE FEMUR PROCEDURE INJECTION AT THE BURSA OF THE RIGHT GREATER TROCHANTER OF THE FEMUR UNDER FLUOROSCOPIC GUIDANCE SURGEON DR. STELLA ASHRAF BUSINESS SOLUTIONS ARCHITECT NONE ANESTHESIA LOCAL PRE PROCEDURE NOTE THE PATIENT HAS A HISTORY OF RIGHT HIP PAIN. I EVALUATED THE PATIENT AND REVIEWED THE CHART. THE PATIENT HAD A BOIL OVER THE RIGHT HIP. I TOOK A PICTURE AND SHOWED IT TO THE PATIENT AND WE AGREED TO MOVE FORWARD WITH THE PROCEDURE TODAY. WE BOTH AGREE ON INJECTING OVER THE BURSA OF THE RIGHT GREATER TROCHANTER OF THE FEMUR. I DISCUSSED THE RISKS, BENEFITS AND ALTERNATIVES ASSOCIATED WITH THIS PROCEDURE. I DISCUSSED THAT THE USE OF STEROIDS MAY CONTRIBUTE TO IMMUNOSUPPRESSION OF THE PATIENT'S BODY AGAINST INFECTIONS SUCH COVID-19. THE PATIENT IS AWARE OF THE POTENTIAL COMPLICATIONS ASSOCIATED WITH THIS VIRUS, INCLUDING, BUT NOT LIMITED TO, . I DISCUSSED THE USE OF DEXAMETHASONE INSTEAD OF KENALOG; HOWEVER, THE PATIENT WOULD LIKE TO MOVE FORWARD WITH KENALOG. THE PATIENT WOULD LIKE TO PROCEED AND GAVE CONSENT TO PERFORM THE PROCEDURE. THE PATIENT DENIES UNEXPLAINABLE WEIGHT LOSS, FEVERS, CHILLS, OR CHANGES IN HIS URINARY OR BOWEL CONTROL. THE PATIENT IS COVID-19 NEGATIVE DESCRIPTION OF PROCEDURE AFTER CONSENT WAS TAKEN, THE PATIENT WAS BROUGHT TO THE PROCEDURE ROOM AND PLACED IN THE LEFT LATERAL DECUBITUS POSITION. THE RIGHT HIP AREA WAS CLEANED WITH CHLORAPREP SOLUTION AND DRAPED ASEPTICALLY. THE PROCEDURE WAS DONE UNDER STERILE CONDITIONS. A TIMEOUT WAS PERFORMED WHERE LATERALITY AND THE SITE OF THE PROCEDURE WERE CHECKED AND CONFIRMED WITH EVERYONE IN THE ROOM. UNDER FLUOROSCOPIC GUIDANCE, TARGET WAS SELECTED AT THE RIGHT GREATER TROCHANTER OF THE FEMUR. LIDOCAINE WAS USED TO NUMB THE SKIN AND THE SUBCUTANEOUS TISSUE BELOW IT. SPINAL NEEDLE, 22-GAUGE, WAS ADVANCED UNDER FLUOROSCOPIC GUIDANCE AND FOLLOWING PATIENT FEEDBACK UNTIL THE TARGET WAS TOUCHED. POSITION OF THE NEEDLE WAS VERIFIED WITH AP AND LATERAL VIEWS. AFTER PROPER POSITION OF THE NEEDLE WAS ACHIEVED, ISOVUE-M 30%, 1.0 ML, WAS INJECTED SHOWING ADEQUATE SPREAD OF THE DYE. KENALOG 40 MG WAS INJECTED. THEN, A SOLUTION OF 30 ML OF BUPIVACAINE 0.125% WAS USED TO FLUSH THE SITE. THE MEDICATIONS WERE VERIFIED WITH THE NURSE. THERE WAS NO EVIDENCE OF BLOOD OR PARESTHESIA. THE PATIENT WAS SENT TO THE RECOVERY ROOM. THE PATIENT WAS MOVING THE EXTREMITIES AND DOING WELL. THERE WERE NO COMPLICATIONS DURING THE PROCEDURE. ESTIMATED BLOOD LOSS WAS LESS THAN 5 ML. FLUOROSCOPIC TIME WAS 17 SECONDS POST PROCEDURE NOTE BEFORE STARTING THE PROCEDURE, THE PATIENT WAS HAVING SOME IRREGULAR HEART BEATS. WE DECIDED TO PROCEED WITH THE PROCEDURE. DURING THE PROCEDURE IT CONTINUED. MY ADVICE IS FOR THE PATIENT TO FOLLOWUP WITH HER PRIMARY DOCTOR ABOUT THIS. I ALSO WOULD LIKE THE PATIENT TO HAVE AN IV FOR EVERY PROCEDURE SHE HAS PERFORMED. I DISCUSSED THE PROCEDURE WITH THE PATIENT. I WILL CALL AND DISCUSS THE CASE WITH HER PRIMARY CARE PROVIDER BEFORE SHE IS DISCHARGE HOME. WE WILL SEE THE PATIENT BACK IN SEVERAL WEEKS FOR FOLLOWUP. I AM LOOKING FOR LONG-LASTING PAIN RELIEF WITH THIS INTERVENTION. THE PATIENT IS AWARE TO STAY HOME FOR THE NEXT WEEK, IF POSSIBLE, DUE TO COVID-19. I, SARA GONSALVES, DOCUMENTED THE ABOVE INFORMATION ACTING A SCRIBE FOR DR. ASHRAF. I HAVE REVIEWED THE ABOVE DOCUMENT, WRITTEN BY SARA GONSALVES, INSPECTOR WREATH, AND I VERIFY THAT IT IS ACCURATE PROCEDURE CODES 51275 DRAIN/INJ JOINT/BURSA W/O US, MODIFIERS: RT [id number] NEEDLE LOCALIZATION BY XRAY, MODIFIERS: 26 DISPOSITION & COMMUNICATION FOLLOW UP F/UP WITH ENGINEERING LECTURER (REASON: POST RIGHT GREATER TROCHANTER ) ELECTRONICALLY SIGNED BY STELLA ASHRAF MD, MD ON 05/04/2020 AT 01:35 PM EDT DISCLAIMER : THIS IS A VISIT SUMMARY EXTRACTED FROM THE [facility] CHART. IT IS NOT A COPY OF THE [facility] PROGRESS NOTE. MTDD
== END ==
LOC: M PAIN 08:30
PROVIDERS: ATTEND Anesthesiology
DX: M70.61 Trochanteric bursitis, right hip (principal)
CPT/HCPCS: 20610; 77002; J3301; Q0162; Q9967

== ENCOUNTER → 2020-06-02 | Outpatient (CLI) | payer OTHER ==
[~2020-06-02] MED LIST changes: -BUPIVACAINE HCL 0.25% 30ML VIAL As Ordered ONE; -ISOVUE-M 300 61% 15ML VIAL As Ordered ONE; -LIDOCAINE 1% SDV 30ML VIAL As Ordered ONE; -ONDANSETRON 4 MG ORAL DISINTEGRATING TAB As Ordered ONE; -TRIAMCINOLONE ACETONIDE SUSP 40 MG/ML VIAL (J3301) As Ordered ONE; -diazePAM 5 MG TAB As Ordered ONE; -oxyCODONE 5MG TAB As Ordered ONE
== END ==
LOC: M PAIN 09:30
PROVIDERS: ATTEND Family Medicine
DX: M70.61 Trochanteric bursitis, right hip (principal)

== ENCOUNTER → 2020-06-22 | Outpatient (CLI) | payer OTHER | LOC: M LABSMTC 11:53 | PROVIDERS: ATTEND Anesthesiology | DX: Z20.828 Contact with and (suspected) exposure to other viral communicable diseases (principal) | CPT/HCPCS: C9803; U0003 ==

== ENCOUNTER → 2020-06-27 | Outpatient (CLI) | payer OTHER ==
[~2020-06-27] MED LIST changes: +BUPIVACAINE HCL 0.25% 30ML VIAL As Ordered ONE; +ISOVUE-M 300 61% 15ML VIAL As Ordered ONE; +LIDOCAINE 1% SDV 30ML VIAL As Ordered ONE; +ONDANSETRON 4 MG ORAL DISINTEGRATING TAB As Ordered ONE; +TRIAMCINOLONE ACETONIDE SUSP 40 MG/ML VIAL (J3301) As Ordered ONE; +diazePAM 5 MG TAB As Ordered ONE; +oxyCODONE 5MG TAB As Ordered ONE
--- NOTE | 2020-07-18 13:52 | REP ---
C-ARM VIEWS RIGHT HIP HISTORY: Pain. Four C-arm views of the right hip region are performed during injection by Dr. Mcgee. Needle was seen in the region of the greater trochanter of the proximal right femur. 12 seconds of fluoroscopy time utilized. MTDD
== END ==
LOC: M PAIN 09:09
PROVIDERS: ATTEND Anesthesiology
DX: M70.61 Trochanteric bursitis, right hip (principal)
CPT/HCPCS: 20610; 77002; G0463; J3301; Q0162; Q9967

== ENCOUNTER → 2020-07-11 | Outpatient (CLI) | payer OTHER ==
[~2020-07-11] MED LIST changes: -BUPIVACAINE HCL 0.25% 30ML VIAL As Ordered ONE; -ISOVUE-M 300 61% 15ML VIAL As Ordered ONE; -LIDOCAINE 1% SDV 30ML VIAL As Ordered ONE; -ONDANSETRON 4 MG ORAL DISINTEGRATING TAB As Ordered ONE; -TRIAMCINOLONE ACETONIDE SUSP 40 MG/ML VIAL (J3301) As Ordered ONE; -diazePAM 5 MG TAB As Ordered ONE; -oxyCODONE 5MG TAB As Ordered ONE
== END ==
LOC: M PAIN 14:20
PROVIDERS: ATTEND Family Medicine
DX: M51.17 Intervertebral disc disorders with radiculopathy, lumbosacral region (principal)

== ENCOUNTER → 2020-07-20 | Outpatient (CLI) | payer OTHER | LOC: M LABSMTC 10:52 | PROVIDERS: ATTEND Anesthesiology | DX: Z20.828 Contact with and (suspected) exposure to other viral communicable diseases (principal) | CPT/HCPCS: C9803; U0003 ==

== ENCOUNTER → 2020-07-25 | Outpatient (CLI) | payer OTHER ==
[~2020-07-25] MED LIST changes: +ISOVUE-M 300 61% 15ML VIAL As Ordered ONE; +LIDOCAINE 1% SDV 30ML VIAL As Ordered ONE; +ONDANSETRON 4 MG ORAL DISINTEGRATING TAB As Ordered ONE; +diazePAM 5 MG TAB As Ordered ONE; +methylPREDNISolone SUSP 40MG/ML 1ML VIAL (DEPO MEDROL) As Ordered ONE; +oxyCODONE 5MG TAB As Ordered ONE
--- NOTE | 2020-07-26 12:32 | ECWPNPC ---
PATIENT NAME: JOI MCCLAIN : 1965 GENDER: FEMALE VISIT DATE: 07/25/2020 DISCHARGE DATE: 07/25/20 1240 VISIT LOCKED DATE TIME: PHYSICIAN: STELLA ASHRAF MD PHYSICIAN PAGER NO: ACTIVE RESOURCE: STELLA ASHRAF MD REASON FOR APPOINTMENT 1. LESI L5-S1 HISTORY OF PRESENT ILLNESS PAIN CENTER INTAKE QUESTIONS: DO YOU HAVE A HISTORY OF MRSA? :NO DO YOU TAKE A BLOOD THINNERS? :NO DO YOU HAVE ANY BLEEDING DISORDERS? :NO ANY NEW NUMBNESS OR WEAKNESS IN YOUR LEGS OR ARMS? :NO ANY PACEMAKER,DEFIBRILLATOR, OR DORSAL COLUMN STIMULATOR? :NO DO YOU HAVE ANY RASHES OR OPEN SORES? :NO ARE YOU ALLERGIC TO IV DYE? :NO ARE YOU DIABETIC? :NO ANY NEW PROBLEMS WITH YOUR MEDICATIONS? :NO HAVE YOU RECEIVED A VACCINE IN THE PAST 30 DAYS? :NO DO YOU PLAN TO RECEIVE A VACCINE IN THE NEXT 21 DAYS? :NO DO YOU TAKE ANY IMMUNOSUPPRESSIVE MEDICATIONS? :NO ANY HISTORY OF SEIZURES? :NO ANY HISTORY OF CARDIAC ISSUES OR EVENTS? :NO DO YOU HAVE SLEEP APNEA? :NO ANY RECENT HEAD INJURY? :NO DO YOU HAVE ANY NEW INFECTIONS? :NO IS THERE A CHANCE YOU COULD BE ? :NO ARE YOU BREAST FEEDING? :NO WHEN DID YOU LAST EAT? : -07/24 6P WHEN DID YOU LAST DRINK? : -07/25 4AM WHAT DID YOU LAST DRINK? : -DIET PEPSI NAME OF PERSON DRIVING YOU HOME? : SAMIA () OR MERLIN (SON) DO YOU HAVE ANY OTHER QUESTIONS OR CONCERNS? : NO GENERAL: -. FALL RISK SCREENING: SCREENING :ONE FALL WITH INJURY IN THE PAST YEAR HEAD INJURY WITH ADMISSION TO HOSPITAL UNKNOWN ETIOLOGY. PAIN SCREENING: PATIENT HAS A COMPLAINT OF ACUTE OR CHRONIC PAIN :YES LOCATION OF PAIN:LOW BACK, LEG(S) INTENSITY OF PAIN (SCALE OF 1 TO 10):8 WHAT DOES YOUR PAIN FEEL LIKE:ACHING, BURNING, CONTINOUS, SHARP, STABBING, TENDER, THROBBING, SORE, SHOOTING DURATION:CONSTANT, STEADY PAIN IS INCREASED BY:ACTIVITIES STANDING, VACCUUMING PAIN IS DECREASED BY:OTHERS HEAT, REST NURSING NOTE: -. CURRENT MEDICATIONS TAKING IMITREX 50 MG TABLET 1 TABLET NEEDED ONE TIME, MAY REPEAT IN 2 HOURS IF HEADACHE STILL PRESENT, MDD 2 ORALLY DIRECTED, NOTES: NOT RECENTLY TAKING OMEPRAZOLE 40MG CAPSULE DELAYED RELEASE TAKE ONE CAPSULE BY MOUTH DAILY, NOTES: 07/24 9P TAKING CYMBALTA 60 MG CAPSULE DELAYED RELEASE PARTICLES 1 CAPSULE ORALLY ONCE A DAY, NOTES: 07/24 10A TAKING CELECOXIB 200 MG CAPSULE TAKE ONE CAPSULE BY MOUTH EVERY DAY WITH FOOD ORAL DAILY, NOTES: 07/24 9P TAKING GABAPENTIN 400 MG TABLET 1 ORALLY 1 IN AM,1 MIDDAY AND 2 AT HS, NOTES: 07/25 4AM TAKING BACLOFEN 20 MG TABLET 1 TABLET ORALLY 1 Q6H QID, NOTES: 07/25 4AM TAKING MOVANTIK 25 MG TABLET 1 TABLET IN THE MORNING ORALLY ONCE A DAY, NOTES: 07/24 10P TAKING MORPHINE SULFATE 15 MG TABLET 1 TAB ORALLY Q6H PRN MDD4, NOTES: 07/25 4AM TAKING ZOFRAN 4MG TABLET 2 TABLETS ORALLY BID PRN, NOTES: 07/24 10P TAKING ATORVASTATIN CALCIUM 10MG TABLET 1 TABLET ORALLY ONCE A DAY, NOTES: 07/24 10PM NOT-TAKING ERGOCALCIFEROL 86856 UNIT CAPSULE 1 CAPSULE ORALLY ONCE A WEEK, NOTES: NOT RECENTLY NOT-TAKING POTASSIUM CHLORIDE MARY ANNE ER 20 MEQ TABLET EXTENDED RELEASE 1 TABLET WITH FOOD ORALLY ONCE A DAY NOT-TAKING LASIX 20 MG TABLET 1 TABLET ORALLY ONCE A DAY NOT-TAKING TRAZODONE HCL 100 MG TABLET 1 TABLET AT BEDTIME ORALLY ONCE A DAY NOT-TAKING LINZESS 145MCG CAPSULE 1 CAPSULE ORALLY ONCE A DAY NEEDED NOT-TAKING CLONIDINE HCL 0.1 MG TABLET 1 TABLET AT BEDTIME ORALLY ONCE A DAY MEDICATION LIST REVIEWED AND RECONCILED WITH THE PATIENT PAST MEDICAL HISTORY DEPRESSION HYPERTENSION HYPERLIPIDEMIA INSOMNIA IBS REFLUX CHRONIC BACK PAIN ATHRITIS IN BACK BILATERAL HIP BURSITIS, RIGHT > LEFT NOCTURIA COPD-UNSPECIFIED PUMONARY NODULES-FOLLOWED BY [facility] DILATED COMMON BILE DUCT FROM 1.2 CM ON DECEMBER 2014 STUDY TO 1.7 CM 10/21/2019 PER PT MASS ON ADRENAL GLAND ALLERGIES PENICILLIN (FOR ALLERGIES USE ONLY): HIVES - ALLERGY ANCEF: HIVES - ALLERGY STRAWBERRIES/MANGOS: SEVERE HIVES, ITCHING - ALLERGY - ONSET DATE 01/10/2020 SURGICAL HISTORY BACK SURGERY 2009 GALL BLADDER 1988 HYSTERECTOMY 1993 LEFT BREAST BIOPSY AGE 14 RIGHT BREAST BIOPSY 2003 FAMILY HISTORY FATHER: , DIAGNOSED WITH UNSPECIFIED HEART DISEASE MOTHER: , UNSPECIFIED HEART DISEASE, UNSPECIFIED CEREBRAL ARTERY OCCLUSION WITH CEREBRAL INFARCTION, OTHER MALIGNANT NEOPLASM OF UNSPECIFIED SITE, OTHER SPECIFIED CONDITIONS INFLUENCING HEALTH STATUS MOTHER-ALZHEIMER\NMOTHER,AUNT,GRANDMOTHER ALL HAD BREAST CA. SOCIAL HISTORY GENERAL: TOBACCO USE ARE YOU A:CURRENT SMOKER ARE YOU INTERESTED IN QUITTING?NOT READY TO QUIT COUNSELED THE PATIENT ON SMOKING EFFECTS, EDUCATION [id number]/05/2020 HOW MANY CIGARETTES A DAY DO YOU SMOKE?6-10 HOW SOON AFTER YOU WAKE UP DO YOU SMOKE YOUR FIRST CIGARETTE?6-30 MIN HOW OFTEN DO YOU SMOKE CIGARETTES?EVERY DAY PATIENT COUNSELED ON THE DANGERS OF TOBACCO USE AND URGED TO QUIT:07/24/2020 ADDITIONAL FINDINGS: TOBACCO USER NONE SMOKING CESSATION INFORMATION GIVEN07/24/2020 VAPORNO E-CIGARETTENO LATEX QUESTIONNAIRE LATEX ALLERGY : HAVE YOU EVER DEVELOPED ANY TYPE OF REACTION AFTER HANDLING LATEX PRODUCTS SUCH RUBBER GLOVES, CONDOMS, DIAPHRAGMS, BALLOONS, SOCKS, OR UNDERWEAR?NO LATEX ALLERGY : HAVE YOU EVER DEVELOPED ANY TYPE OF REACTION DURING OR AFTER DENTAL APPOINTMENT, VAGINAL/RECTAL EXAMINATION, SURGICAL PROCEDURE, OR ANY OTHER EXPOSURE?NO LATEX RISK : HAVE YOU EVER HAD ANY DIFFICULTY BREATHING OR HIVES AFTER EATING OR HANDLING ANY FRUITS, OR VEGETABLES; SUCH KIWI, BANANAS, STONE FRUITS, OR CHESTNUTSYES - PLEASE INDICATE : MANGOS LATEX RISK : DO YOU HAVE A PREVIOUS PERSONAL HISTORY OF MORE THAN NINE SURGERIES, SPINA BIFIDA, OR REPEATED CATHERIZATIONS? NO LATEX RISK : ARE YOU FREQUENTLY EXPOSED TO LATEX PRODUCTS IN YOUR OCCUPATION?NO DATE ASKED : 07/25/2020 BMI CARE GOAL FOLLOW-UP ABOVE NORMAL BMI FOLLOW-UPDIETARY MANAGEMENT EDUCATION, GUIDANCE, AND COUNSELING ALCOHOL SCREENING DID YOU HAVE A DRINK CONTAINING ALCOHOL IN THE PAST YEAR?NO POINTS0 INTERPRETATIONNEGATIVE RECREATIONAL DRUG USE DRUG USE?NO CAFFEINE CAFFEINE USE?YES COFFEE,DIET PEPSI SEXUAL HX HAD SEX IN THE LAST 12 MONTHS (VAGINAL, ORAL, OR ANAL)?YES WITHMEN ONLY HAVE YOU EVER HAD AN STD?NO HIV / HEP-C SCREENING HIV TEST OFFERED TO PATIENT:YES DATE OFFERED:09/06/2019 CONSENT ON FILE TEST ACCEPTED:NO HEP-C TEST OFFERED TO PATIENT:YES DATE OFFERED:09/06/2019 CONSENT ON FILE REASON:PATIENT DECLINED TEST ACCEPTED:NO REASON:PATIENT DECLINED BROCHURE PROVIDED TO PATIENTNO ANGLICAN [id number] PENTECOSTAL LANGUAGE TURKMEN. EDUCATION LEVEL OF EDUCATION:FINISHED HIGH SCHOOL 11TH GRADE LEARNING BARRIERS / SPECIAL NEEDS CHANGE FROM LAST VISIT?NO 03/16/2020 BARRIERS TO LEARNING?NO HEARING IMPAIRED?NO VISION IMPAIRED?YES COGNITIVELY IMPAIRED?NO :CORRECTIVE LENSES READING READINESS TO LEARN?YES LEARNING PREFERENCES?NO LEARNING CAPABILITIES PRESENT?YES EMOTIONAL BARRIERS?NO SPECIAL DEVICES?NO TELECOM SPECIALIST NEEDED?NO DOMESTIC VIOLENCE DO YOU FEEL SAFE IN YOUR ENVIRONMENT?YES DIET: REGULAR. MARITAL STATUS: . PAIN CLINIC PFS, CLERGY, PUBLIC HEALTH REFERRALS PFS REFERRAL NEEDED?NO CLERGY REFERRAL NEEDED?NO PUBLIC HEALTH REFERRAL NEEDED?NO WAS THE PROVIDER NOTIFIED OF ANY PERTINENT INFO?YES N/A HAS THE PATIENT BEEN EDUCATED REGARDING HIS/HER PLAN OF CARE?YES HAS THE PATIENT BEEN EDUCATED REGARDING PAIN, THE RISK FOR PAIN, THE IMPORTANCE OF EFFECTIVE PAIN MANAGEMENT, AND THE PAIN ASSESSMENT PROCESS?YES ADVANCE DIRECTIVE ADVANCE DIRECTIVE DISCUSSED WITH PATIENT:YES PT DOES NOT HAVE ANY ADVANCED DIRECTIVES AND SHE DECLINES INFORMATION ON HCP AT THIS TIME. THIS PATIENT LIVES AT HOME WITH HER AND GRAND-DAUGHTER, (WHOM SHE INTENDS TO ADOPT). SHE SLEEPS OKAY ONLY. SHE FRACTURED RIGHT ELBOW, RIGHT CHEEK FRACTURE, AND LEFT WRIST IN PAST. NO HISTORY OF AN EATING DISORDER. SHE DENIES HISTORY OF PHYSICAL/SEXUAL ABUSE. SHE WEARS SEAT BELTS. SHE IS CURRENT WITH IMMUNIZATIONS AND TETANUS. SHE IS UP TO DATE WITH DENTAL AND EYE EXAMINATIONS. SHE TAKES NO VITAMINS OR CALCIUM. HOSPITALIZATION/MAJOR DIAGNOSTIC PROCEDURE FOR SURGERIES CHILD X 2 [facility] 2-3 DAY FOR HYPOXIA 10/21/2019 VITAL SIGNS WT 143.2 LBS, HT 63 IN, BMI 25.36 INDEX, BP 139/94 MM HG, HR 106 /MIN, RR 18 /MIN, TEMP 97.5 F, OXYGEN SAT % 96%, SAFE IN ENV? (Y/N) Y, NA INITIALS SC 10:46, REVIEWED BY: CHARISSE. EXAMINATION GENERAL EXAMINATION: THE PATIENT IS ALERT, ORIENTED TIMES THREE AND COOPERATIVE. HEART SHOWS REGULAR RHYTHM, NO MURMURS AND NO GALLOPS. LUNGS ARE CLEAR TO AUSCULTATION. ASSESSMENTS LUMBAR POST-LAMINECTOMY SYNDROME - M96.1 (PRIMARY) INTERVERTEBRAL DISC DISORDERS WITH RADICULOPATHY, LUMBAR REGION - M51.16 TREATMENT INTERVERTEBRAL DISC DISORDERS WITH RADICULOPATHY, LUMBAR REGION [facility] FLUORO GUIDE SPINE INJECTION (PAIN)[id number] PROCEDURES PAIN NURSING RECORD PRE-PROCEDURE IV SITE N/A, PRE-PROCEDURE ORAL MEDICATIONS ZOFRAN 4MG PO, OXYCODONE 10MG PO, VALIUM 10MG PO, ADMINISTERED BY NING ELDER 07/25/2020 1114 PROCEDURE IN ROOM 1130 PT AMBULATED TO PROCEDURE ROOM AND POSITIONED SELF ON TABLE WITH MIN 1 ASSIST, GAIT STEADY, PT TOLERATED AMBULATION AND POSITIONING WELL. DS, PHYSICIAN IN ROOM 1207 , START 1212 , FINISH 1223 , PHYSICIAN OUT OF ROOM 1226 , OUT OF ROOM 1232 PT AMBULATED POST PROCEDURE TO RECOVERY ROOM WITH MIN 1 ASSIST, GAIT STEADY, PT TOLERATED PROCEDURE WELL. DS, STEROID DEPOMEDROL 80MG, O2 NC 2 LPM, PT O2 SAT 87-88% ON ROOM AIR, PLACED ON NC 2L/MIN PER MD ORDER, PT TOLERATING O2 WELL., ECG NORMAL SINUS , PATIENT SHIELDED YES , SAFETY STRAP YES , PREP BETADINE , IV INFUSED N/A , DRESSING TEGADERM LOC: SHERIDAN RINCON RN 07/25/2020 11:38:10 AM > , 1. ALERT, ORIENTED RESP: SHERIDAN RINCON RN 07/25/2020 11:38:16 AM > , 1. REGULAR, NO DYSPNEA COLOR: SHERIDAN RINCON RN 07/25/2020 11:38:23 AM > , 1. PINK SKIN: SHERIDAN RINCON RN 07/25/2020 11:38:29 AM > , 1. WARM, DRY POSITION: SHERIDAN RINCON RN 07/25/2020 11:38:34 AM > , 1. PRONE VITALS: SHERIDAN RINCON RN 07/25/2020 11:35:38 AM > 119/64, 87, 18, 97%, 2L NC , SHERIDAN RINCON RN 07/25/2020 11:50:05 AM > 115/62, 76, 18, 98%, 2L NC , SHERIDAN RINCON RN 07/25/2020 12:05:52 PM > 113/61, 79, 18, 93% 2L NC , SHERIDAN RINCON RN 07/25/2020 12:20:05 PM > 117/66, 77, 18, 91% 2L MCKENZIE VARGAS DEBRA A, RN 07/25/2020 12:40:25 PM > 128/64, 75, 18, 96%, RA (DISCHARGE) DISCHARGE: POST PAIN 0/10, DRESSING SITE DRY AND INTACT, IV N/A, GAIT STEADY, TEACHING COMPLETED, PATIENT ACKNOWLEDGES UNDERSTANDING YES, PATIENT DISCHARGED AT 1240 PRE PROCEDURE DIAGNOSIS LUMBAR POST LAMINECTOMY PAIN SYNDROME, LUMBAR DISC DISORDER WITH RADICULOPATHY POST PROCEDURE DIAGNOSIS LUMBAR POST LAMINECTOMY PAIN SYNDROME, LUMBAR DISC DISORDER WITH RADICULOPATHY PROCEDURE LUMBAR EPIDURAL STEROID INJECTION UNDER FLUOROSCOPIC GUIDANCE SURGEON DR. STELLA ASHRAF INSPECTOR CASING NONE ANESTHESIA LOCAL PRE PROCEDURE NOTE THE PATIENT HAS A HISTORY OF CHRONIC LOW BACK PAIN. I EVALUATED THE PATIENT AND REVIEWED THE CHART. I WENT OVER THE RISKS, ALTERNATIVES, AND BENEFITS ASSOCIATED WITH THIS PROCEDURE. I DISCUSSED THAT THE USE OF STEROIDS MAY CONTRIBUTE TO IMMUNOSUPPRESSION OF THE PATIENT'S BODY AGAINST INFECTIONS SUCH COVID-19. THE PATIENT IS AWARE OF THE POTENTIAL COMPLICATIONS ASSOCIATED WITH THIS VIRUS, INCLUDING, BUT NOT LIMITED TO, . THE PATIENT WOULD LIKE TO PROCEED AND GIVE CONSENT TO PERFORMED THE PROCEDURE. THE PATIENT DENIES UNEXPLAINABLE WEIGHT LOSS, FEVER, CHILLS, OR NEW CHANGES IN URINARY OR BOWEL CONTROL. THE PATIENT IS COVID-19 NEGATIVE DESCRIPTION OF PROCEDURE THE PATIENT WAS BROUGHT TO THE PROCEDURE ROOM AND PLACED IN THE PRONE POSITION. THE LUMBOSACRAL AREA WAS CLEANED WITH BETADINE SOLUTION AND DRAPED ASEPTICALLY. THE PROCEDURE WAS DONE UNDER STERILE CONDITIONS. A TIMEOUT WAS PERFORMED WHERE LATERALITY AND THE SITE OF THE PROCEDURE WERE CHECKED AND CONFIRMED WITH EVERYONE IN THE ROOM. UNDER FLUOROSCOPIC GUIDANCE, THE TARGET POINT WAS SELECTED AT THE INTERLAMINAR LEVEL OF L5-S1. I CONFIRMED AGAIN WITH EVERYONE IN THE ROOM THE LATERALITY OF THE TARGET AT 1212. LIDOCAINE WAS USED TO NUMB THE SKIN AND THE SUBCUTANEOUS TISSUE BELOW IT. EPIMED NEEDLE, 16-GAUGE, WAS ADVANCED UNDER FLUOROSCOPIC GUIDANCE AND FOLLOWING PATIENT FEEDBACK UNTIL THE EPIDURAL SPACE WAS REACHED 7 CM DEEP INTO THE SKIN BY THE LOSS OF RESISTANCE TECHNIQUE. ISOVUE-M DYE 30%, 0.25 ML, WAS INJECTED SHOWING ADEQUATE SPREAD OF THE DYE. THEN, A SOLUTION OF 3 ML OF NORMAL SALINE WITH DEPO-MEDROL 80 MG WAS INJECTED SLOWLY FOLLOWING PATIENT FEEDBACK. THE MEDICATIONS WERE VERIFIED WITH THE NURSE. THERE WAS NO EVIDENCE OF BLOOD, PARESTHESIA OR CEREBROSPINAL FLUID DURING THE PROCEDURE. THE PATIENT WAS SENT TO THE RECOVERY ROOM. THE PATIENT WAS MOVING THE EXTREMITIES AND DOING WELL. THERE WERE NO COMPLICATIONS DURING THE PROCEDURE. ESTIMATED BLOOD LOSS WAS LESS THAN 5 ML. FLUOROSCOPY TIME WAS 24 SECONDS POST PROCEDURE NOTE DEPENDING ON THE RESULTS OF THIS INJECTION, CONSIDER A TRANSFORAMINAL EPIDURAL. THE PATIENT WILL BE SEEN IN A FOLLOW UP IN THE NEXT FEW WEEKS. I AM LOOKING FOR LONG LASTING RELIEF FOR THE PATIENT WITH THIS INTERVENTION. INSTRUCTIONS WERE GIVEN, QUESTIONS WERE ANSWERED, AND THE PATIENT EXPRESSED UNDERSTANDING AND AGREES WITH THE PLAN. I, SARA GONSALVES, DOCUMENTED THE ABOVE INFORMATION ACTING A SCRIBE FOR DR. ASHRAF. I HAVE REVIEWED THE ABOVE DOCUMENT, WRITTEN BY SARA GONSALVES, OPTICAL INSTRUMENT SPECIALIST, AND I VERIFY THAT IT IS ACCURATE PREVENTIVE MEDICINE PAIN CLINIC TEACHING: THE PATIENT HAS BEEN EDUCATED REGARDING PAIN, THE RISK FOR PAIN, THE IMPORTANCE OF EFFECTIVE PAIN MANAGEMENT, AND THE PAIN ASSESSMENT PROCESS. : REVIEWED WRITTEN AND VERBAL POST PROCEDURE INSTRUCTIONS AND COVID MONITORING WITH PT. PATIENT ACKNOWLEDGED UNDERSTANDING, DS PROCEDURE CODES 10385 LUMBAR/SACRAL W/ IMAGING DISPOSITION & COMMUNICATION FOLLOW UP FOLLOW UP WITH ANIMAL ATTENDANT (REASON: POST LUMBAR EPIDURAL L5-S1) ELECTRONICALLY SIGNED BY STELLA ASHRAF MD, MD ON 07/26/2020 AT 12:27 PM EDT DISCLAIMER : THIS IS A VISIT SUMMARY EXTRACTED FROM THE [employer] CHART. IT IS NOT A COPY OF THE [employer] PROGRESS NOTE. LAURA
--- NOTE | 2020-08-01 09:07 | REP ---
C-ARM VIEWS LOWER LUMBAR SPINE CLINICAL HISTORY: Pain. TECHNIQUE: Three C-arm views of the lower lumbar spine performed during an injection by Dr. Mcgee. FINDINGS: Needle is seen at the lumbosacral junction and a small amount of contrast is injected. FLUROSCOPY TIME: 24 seconds utilized. MTDD
== END ==
LOC: M PAIN 10:30
PROVIDERS: ATTEND Anesthesiology
DX: M96.1 Postlaminectomy syndrome, not elsewhere classified (principal); M51.16 Intervertebral disc disorders with radiculopathy, lumbar region; I10 Essential (primary) hypertension; E78.5 Hyperlipidemia, unspecified; G47.00 Insomnia, unspecified; K21.9 Gastro-esophageal reflux disease without esophagitis; J44.9 Chronic obstructive pulmonary disease, unspecified; F17.210 Nicotine dependence, cigarettes, uncomplicated; Z86.59 Personal history of other mental and behavioral disorders; Z88.0 Allergy status to penicillin; Z88.1 Allergy status to other antibiotic agents; Z91.018 Allergy to other foods; Z79.891 Long term (current) use of opiate analgesic; Z79.899 Other long term (current) drug therapy
CPT/HCPCS: 62323; J1030; Q0162; Q9967

== ENCOUNTER → 2020-08-15 | Outpatient (CLI) | payer OTHER ==
[~2020-08-15] MED LIST changes: -ISOVUE-M 300 61% 15ML VIAL As Ordered ONE; -LIDOCAINE 1% SDV 30ML VIAL As Ordered ONE; -ONDANSETRON 4 MG ORAL DISINTEGRATING TAB As Ordered ONE; -diazePAM 5 MG TAB As Ordered ONE; -methylPREDNISolone SUSP 40MG/ML 1ML VIAL (DEPO MEDROL) As Ordered ONE; -oxyCODONE 5MG TAB As Ordered ONE
--- NOTE | 2020-08-17 01:56 | ECWPNPC ---
PATIENT NAME: JOI MCCLAIN : 1965 GENDER: FEMALE VISIT DATE: 08/15/2020 DISCHARGE DATE: 08/15/20 1448 VISIT LOCKED DATE TIME: PHYSICIAN: REUBEN CRONIN PHYSICIAN PAGER NO: ACTIVE RESOURCE: REUBEN CRONIN REASON FOR APPOINTMENT 1. POST LUMBAR EPIDURAL L5-S1 HISTORY OF PRESENT ILLNESS DEPRESSION SCREENING: PHQ-2 (2015 EDITION) LITTLE INTEREST OR PLEASURE IN DOING THINGS?NOT AT ALL FEELING DOWN, DEPRESSED, OR HOPELESS?NOT AT ALL TOTAL SCORE0 55-YEAR-OLD FEMALE IN FOR POST LESI FOLLOW-UP. PATIENT STATES THE PROCEDURE LASTED APPROXIMATELY ONE WEEK. SHE RATES HER PAIN CURRENTLY AT A 7 OUT OF 10 AND DESCRIBES IT ACHING, BURNING, CONTINUOUS, SHARP, STABBING, TENDER, THROBBING, SORE, AND SHOOTING. GENERAL: -. FALL RISK SCREENING: SCREENING :ONE FALL WITH INJURY IN THE PAST YEAR PAIN SCREENING: PATIENT HAS A COMPLAINT OF ACUTE OR CHRONIC PAIN :YES LOCATION OF PAIN:LOW BACK, LEG(S) INTENSITY OF PAIN (SCALE OF 1 TO 10):7 WHAT DOES YOUR PAIN FEEL LIKE:ACHING, BURNING, CONTINOUS, SHARP, STABBING, TENDER, THROBBING, SORE, SHOOTING " WITH MUSCLE SPASMS" DURATION:CONTINOUS PAIN IS INCREASED BY:ACTIVITIES, PROLONGED STANDING PAIN IS DECREASED BY:USE OF PAIN MEDICATIONS, OTHERS HEAT NURSING NOTE: -. PAIN CENTER INTAKE QUESTIONS: DO YOU HAVE A HISTORY OF MRSA? :NO DO YOU TAKE A BLOOD THINNERS? :NO DO YOU HAVE ANY BLEEDING DISORDERS? :NO ANY NEW NUMBNESS OR WEAKNESS IN YOUR LEGS OR ARMS? :NO ANY PACEMAKER,DEFIBRILLATOR, OR DORSAL COLUMN STIMULATOR? :NO DO YOU HAVE ANY RASHES OR OPEN SORES? :NO ARE YOU ALLERGIC TO IV DYE? :NO ARE YOU DIABETIC? :NO ANY NEW PROBLEMS WITH YOUR MEDICATIONS? :NO HAVE YOU RECEIVED A VACCINE IN THE PAST 30 DAYS? :NO DO YOU PLAN TO RECEIVE A VACCINE IN THE NEXT 21 DAYS? :NO DO YOU NEED ANY PRESCRIPTION? :NO DO YOU TAKE ANY IMMUNOSUPPRESSIVE MEDICATIONS? :NO IS THERE A CHANCE YOU COULD BE ? :NO ARE YOU BREAST FEEDING? :NO CURRENT MEDICATIONS TAKING IMITREX 50 MG TABLET 1 TABLET NEEDED ONE TIME, MAY REPEAT IN 2 HOURS IF HEADACHE STILL PRESENT, MDD 2 ORALLY DIRECTED TAKING OMEPRAZOLE 40MG CAPSULE DELAYED RELEASE TAKE ONE CAPSULE BY MOUTH DAILY TAKING CYMBALTA 60 MG CAPSULE DELAYED RELEASE PARTICLES 1 CAPSULE ORALLY ONCE A DAY TAKING CELECOXIB 200 MG CAPSULE TAKE ONE CAPSULE BY MOUTH EVERY DAY WITH FOOD ORAL DAILY TAKING GABAPENTIN 400 MG TABLET 1 ORALLY 1 IN AM,1 MIDDAY AND 2 AT HS TAKING MOVANTIK 25 MG TABLET 1 TABLET IN THE MORNING ORALLY ONCE A DAY TAKING ZOFRAN 4MG TABLET 2 TABLETS ORALLY BID PRN TAKING ATORVASTATIN CALCIUM 10MG TABLET 1 TABLET ORALLY ONCE A DAY TAKING BACLOFEN 20 MG TABLET 1 TABLET ORALLY 1 Q6H QID TAKING MORPHINE SULFATE 15 MG TABLET 1 TAB ORALLY Q6H PRN MDD4 NOT-TAKING ERGOCALCIFEROL 26078 UNIT CAPSULE 1 CAPSULE ORALLY ONCE A WEEK, NOTES: NOT RECENTLY NOT-TAKING POTASSIUM CHLORIDE MARY ANNE ER 20 MEQ TABLET EXTENDED RELEASE 1 TABLET WITH FOOD ORALLY ONCE A DAY NOT-TAKING LASIX 20 MG TABLET 1 TABLET ORALLY ONCE A DAY NOT-TAKING TRAZODONE HCL 100 MG TABLET 1 TABLET AT BEDTIME ORALLY ONCE A DAY NOT-TAKING LINZESS 145MCG CAPSULE 1 CAPSULE ORALLY ONCE A DAY NEEDED NOT-TAKING CLONIDINE HCL 0.1 MG TABLET 1 TABLET AT BEDTIME ORALLY ONCE A DAY MEDICATION LIST REVIEWED AND RECONCILED WITH THE PATIENT PAST MEDICAL HISTORY DEPRESSION HYPERTENSION HYPERLIPIDEMIA INSOMNIA IBS REFLUX CHRONIC BACK PAIN ATHRITIS IN BACK BILATERAL HIP BURSITIS, RIGHT > LEFT NOCTURIA COPD-UNSPECIFIED PUMONARY NODULES-FOLLOWED BY [facility] DILATED COMMON BILE DUCT FROM 1.2 CM ON DECEMBER 2014 STUDY TO 1.7 CM 10/21/2019 PER PT MASS ON ADRENAL GLAND ALLERGIES PENICILLIN (FOR ALLERGIES USE ONLY): HIVES - ALLERGY ANCEF: HIVES - ALLERGY STRAWBERRIES/MANGOS: SEVERE HIVES, ITCHING - ALLERGY - ONSET DATE 01/10/2020 SURGICAL HISTORY BACK SURGERY 2009 GALL BLADDER 1989 HYSTERECTOMY 1993 LEFT BREAST BIOPSY AGE 14 RIGHT BREAST BIOPSY 2003 FAMILY HISTORY FATHER: , DIAGNOSED WITH UNSPECIFIED HEART DISEASE MOTHER: , OTHER SPECIFIED CONDITIONS INFLUENCING HEALTH STATUS, UNSPECIFIED HEART DISEASE, UNSPECIFIED CEREBRAL ARTERY OCCLUSION WITH CEREBRAL INFARCTION, OTHER MALIGNANT NEOPLASM OF UNSPECIFIED SITE MOTHER-ALZHEIMER\\NMOTHER,AUNT,GRANDMOTHER ALL HAD BREAST CA. SOCIAL HISTORY GENERAL: TOBACCO USE ARE YOU A:CURRENT SMOKER ARE YOU INTERESTED IN QUITTING?NOT READY TO QUIT COUNSELED THE PATIENT ON SMOKING EFFECTS, EDUCATION [id number]/27/2020 HOW MANY CIGARETTES A DAY DO YOU SMOKE?6-10 HOW SOON AFTER YOU WAKE UP DO YOU SMOKE YOUR FIRST CIGARETTE?6-30 MIN HOW OFTEN DO YOU SMOKE CIGARETTES?EVERY DAY PATIENT COUNSELED ON THE DANGERS OF TOBACCO USE AND URGED TO QUIT:07/24/2020 ADDITIONAL FINDINGS: TOBACCO USER NONE SMOKING CESSATION INFORMATION GIVEN07/24/2020 VAPORNO E-CIGARETTENO LATEX QUESTIONNAIRE LATEX ALLERGY : HAVE YOU EVER DEVELOPED ANY TYPE OF REACTION AFTER HANDLING LATEX PRODUCTS SUCH RUBBER GLOVES, CONDOMS, DIAPHRAGMS, BALLOONS, SOCKS, OR UNDERWEAR?NO LATEX ALLERGY : HAVE YOU EVER DEVELOPED ANY TYPE OF REACTION DURING OR AFTER DENTAL APPOINTMENT, VAGINAL/RECTAL EXAMINATION, SURGICAL PROCEDURE, OR ANY OTHER EXPOSURE?NO LATEX RISK : HAVE YOU EVER HAD ANY DIFFICULTY BREATHING OR HIVES AFTER EATING OR HANDLING ANY FRUITS, OR VEGETABLES; SUCH KIWI, BANANAS, STONE FRUITS, OR CHESTNUTSYES - PLEASE INDICATE : MANGOS LATEX RISK : DO YOU HAVE A PREVIOUS PERSONAL HISTORY OF MORE THAN NINE SURGERIES, SPINA BIFIDA, OR REPEATED CATHERIZATIONS? NO LATEX RISK : ARE YOU FREQUENTLY EXPOSED TO LATEX PRODUCTS IN YOUR OCCUPATION?NO DATE ASKED : 08/15/2020 BMI CARE GOAL FOLLOW-UP ABOVE NORMAL BMI FOLLOW-UPDIETARY MANAGEMENT EDUCATION, GUIDANCE, AND COUNSELING ALCOHOL SCREENING DID YOU HAVE A DRINK CONTAINING ALCOHOL IN THE PAST YEAR?NO POINTS0 INTERPRETATIONNEGATIVE RECREATIONAL DRUG USE DRUG USE?NO CAFFEINE CAFFEINE USE?YES COFFEE,DIET PEPSI SEXUAL HX HAD SEX IN THE LAST 12 MONTHS (VAGINAL, ORAL, OR ANAL)?YES WITHMEN ONLY HAVE YOU EVER HAD AN STD?NO HIV / HEP-C SCREENING HIV TEST OFFERED TO PATIENT:YES DATE OFFERED:09/06/2019 CONSENT ON FILE TEST ACCEPTED:NO HEP-C TEST OFFERED TO PATIENT:YES DATE OFFERED:09/06/2019 CONSENT ON FILE REASON:PATIENT DECLINED TEST ACCEPTED:NO REASON:PATIENT DECLINED BROCHURE PROVIDED TO PATIENTNO MANDAEN [id number] ANGLICAN LANGUAGE TRISTANIAN. EDUCATION LEVEL OF EDUCATION:FINISHED HIGH SCHOOL 11TH GRADE LEARNING BARRIERS / SPECIAL NEEDS CHANGE FROM LAST VISIT?NO BARRIERS TO LEARNING?NO HEARING IMPAIRED?NO VISION IMPAIRED?YES :CORRECTIVE LENSES READING COGNITIVELY IMPAIRED?NO READINESS TO LEARN?YES LEARNING PREFERENCES?NO LEARNING CAPABILITIES PRESENT?YES EMOTIONAL BARRIERS?NO SPECIAL DEVICES?NO COMMANDING OFFICER TRAFFIC DIVISION NEEDED?NO DOMESTIC VIOLENCE DO YOU FEEL SAFE IN YOUR ENVIRONMENT?YES DIET: REGULAR. MARITAL STATUS: . PAIN CLINIC PFS, CLERGY, PUBLIC HEALTH REFERRALS PFS REFERRAL NEEDED?NO CLERGY REFERRAL NEEDED?NO PUBLIC HEALTH REFERRAL NEEDED?NO WAS THE PROVIDER NOTIFIED OF ANY PERTINENT INFO?YES N/A HAS THE PATIENT BEEN EDUCATED REGARDING HIS/HER PLAN OF CARE?YES HAS THE PATIENT BEEN EDUCATED REGARDING PAIN, THE RISK FOR PAIN, THE IMPORTANCE OF EFFECTIVE PAIN MANAGEMENT, AND THE PAIN ASSESSMENT PROCESS?YES ADVANCE DIRECTIVE ADVANCE DIRECTIVE DISCUSSED WITH PATIENT:YES PT DOES NOT HAVE ANY ADVANCED DIRECTIVES AND SHE DECLINES INFORMATION ON HCP AT THIS TIME. THIS PATIENT LIVES AT HOME WITH HER AND GRAND-DAUGHTER, (WHOM SHE INTENDS TO ADOPT). SHE SLEEPS OKAY ONLY. SHE FRACTURED RIGHT ELBOW, RIGHT CHEEK FRACTURE, AND LEFT WRIST IN PAST. NO HISTORY OF AN EATING DISORDER. SHE DENIES HISTORY OF PHYSICAL/SEXUAL ABUSE. SHE WEARS SEAT BELTS. SHE IS CURRENT WITH IMMUNIZATIONS AND TETANUS. SHE IS UP TO DATE WITH DENTAL AND EYE EXAMINATIONS. SHE TAKES NO VITAMINS OR CALCIUM. HOSPITALIZATION/MAJOR DIAGNOSTIC PROCEDURE FOR SURGERIES CHILD X 2 [facility] 2-3 DAY FOR HYPOXIA 10/21/2019 REVIEW OF SYSTEMS CONSTITUTIONAL: ANY RECENT FEVER NO . CHILLS NO . WEIGHT CHANGE OF UNKNOWN REASONS NO . GASTROENTEROLOGY: NEW UNEXPLAINABLE CHANGES IN BOWEL CONTROL NO . CONSTIPATION NO . GENITOURINARY: ANY NEW CHANGE IN BLADDER CONTROL? NO . NEUROLOGY: NEW ONSET DIZZINESS OR NEUROLOGICAL CHANGES NOT MENTIONED NO . NEW NUMBNESS OR PAIN PATTERNS NOT MENTIONED AND PERTINENT TO TODAY'S VISIT NO . CARDIOLOGY: NEW CHEST PRESSURE NO . NEW CHEST PAIN NO . RESPIRATORY: UNEXPLAINABLE COUGH NO . NEW SHORTNESS OF BREATH NO . VITAL SIGNS WT 144 LBS, HT 63 IN, BMI 25.51 INDEX, BP 117/60 MM HG, HR 89 /MIN, RR 18 /MIN, TEMP 97.2 F, OXYGEN SAT % 93%, SAFE IN ENV? (Y/N) YES, NA INITIALS SC 14:00, REVIEWED BY: ZACH. EXAMINATION GENERAL EXAMINATION: GENERALNO ACUTE DISTRESS, WELL NOURISHED AND HYDRATED. PSYCHAPPROPRIATE MOOD AND AFFECT . LUNGS:CLEAR TO AUSCULTATION BILATERALLY, NO WHEEZES, RHONCHI, RALES. HEART:NO MURMURS, REGULAR RATE AND RHYTHM. MUSCULOSKELETAL:POINT TENDER RIGHT GREATER TROCHANTER . ASSESSMENTS OTHER CHRONIC PAIN - G89.29 (PRIMARY) TROCHANTERIC BURSITIS, RIGHT HIP - M70.61 INTERVERTEBRAL DISC DISORDER WITH RADICULOPATHY OF LUMBOSACRAL REGION - M51.17 TREATMENT OTHER CHRONIC PAIN REFILL GABAPENTIN TABLET, 600 MG, 1, ORALLY, 1 IN AM,1 MIDDAY AND 2 AT HS, 30 DAYS, 90 PAIN PROCEDURE LOGDATE OF ATJBNQIPU09/6/2020PROCEDURE:LUMBAR EPIDURAL STEROID INJECTION L5-V5FSUIGQ OF PRE SEDATEZOFRAN 4MGS,VALIUM 10 MGS,OXYCODONE 10MGSRESULT:PRE 8-910 POST 1-11/29 X 1 WEEK NOTES: 55-YEAR-OLD FEMALE IN FOR POST LESI FOLLOW-UP. GIVEN PRESENTING SYMPTOMS RECOMMEND INCREASING GABAPENTIN TO 600 MG 3 TIMES A DAY, AND A RIGHT GREATER TROCHANTERIC BURSAL INJECTION WITH POSTPROCEDURAL FOLLOW-UP. PATIENT HAS EXPRESSED UNDERSTANDING OF AND WAS IN AGREEMENT WITH TREATMENT PLAN. GIVEN TIME TO ASK QUESTIONS AND EXPRESS CONCERNS. 08/15/20 1445 PRE PROCEDURE RIGHT TROCHANTERIC BURSA INSTRUCTIONS REVIEWED WITH PATIENT. ALSO REVIEWED INSTRUCTIONS TO INCREASE GABAPENTIN TO 600 MG TO 3 TIMES DAILY. PAIENT VERBALIZED UNDERSTANDING OF INSTRUCTIONS. , ISTOP REGISTRY REVIEWED AND DEMONSTRATES COMPLLIANCE. (REF # [id number] ) BRINGS IN MEDICATIONS WHICH IS APPROPRIATE FOR WHAT WAS DISPENSED. RECENT URINE TOXICOLOGY REVIEWED. NO UNAUTHORIZED MEDICATIONS. NO ILLICIT SUBSTANCES AND PRESCRIBED MEDICATIONS WERE PRESENT. PROCEDURE CODES FA211 ESTABILISHED PATIENT [facility] FACILITY CHARGE DISPOSITION & COMMUNICATION FOLLOW UP POSTPROCEDURE (REASON: RIGHT GREATER TROCHANTERIC BURSAL INJECTION) ELECTRONICALLY SIGNED BY MERI ZHENG ON 08/16/2020 AT 09:03 AM EDT DISCLAIMER : THIS IS A VISIT SUMMARY EXTRACTED FROM THE [employer] CHART. IT IS NOT A COPY OF THE [employer] PROGRESS NOTE. LAUAR
== END ==
LOC: M PAIN 13:30
PROVIDERS: ATTEND Family Medicine
DX: G89.29 Other chronic pain (principal); M70.61 Trochanteric bursitis, right hip; M51.17 Intervertebral disc disorders with radiculopathy, lumbosacral region

== ENCOUNTER → 2020-10-18 | Outpatient (CLI) | payer OTHER | LOC: M LABSMTC 13:31 | PROVIDERS: ATTEND Anesthesiology | DX: Z20.828 Contact with and (suspected) exposure to other viral communicable diseases (principal) ==

== ENCOUNTER → 2020-10-24 | Outpatient (CLI) | payer OTHER ==
[~2020-10-24] MED LIST changes: +BUPIVACAINE HCL 0.25% 30ML VIAL As Ordered ONE; +ISOVUE-M 300 61% 15ML VIAL As Ordered ONE; +LIDOCAINE 1% SDV 30ML VIAL As Ordered ONE; +ONDANSETRON 4 MG ORAL DISINTEGRATING TAB As Ordered ONE; +TRIAMCINOLONE ACETONIDE SUSP 40 MG/ML VIAL (J3301) As Ordered ONE; +diazePAM 5MG TABLET As Ordered ONE; +oxyCODONE 5MG TAB As Ordered ONE
--- NOTE | 2020-10-24 16:05 | REP ---
INDICATION: RIGHT GREATER TROCHANTERIC OF THE FEMUR BURSAL INJECTION. COMPARISON: None. TECHNIQUE: Intraoperative fluoroscopic imaging using portable C-arm technique FINDINGS: Catheter overlies the right femoral trochanter/neck. Total fluoroscopic time 16.5 seconds. IMPRESSION: Status post catheter placement at the right hip. <Electronically signed by Tucker Mcgovern > 10/24/20 [id number]
--- NOTE | 2020-10-27 02:20 | ECWPNPC ---
PATIENT NAME: JOI MCCLAIN : 1965 GENDER: FEMALE VISIT DATE: 10/24/2020 DISCHARGE DATE: 10/24/20 1600 VISIT LOCKED DATE TIME: PHYSICIAN: STELLA ASHRAF MD PHYSICIAN PAGER NO: ACTIVE RESOURCE: STELLA ASHRAF MD REASON FOR APPOINTMENT 1. RIGHT GREATER TROCHANTER OF THE FEMUR BURSAL INJECTION HISTORY OF PRESENT ILLNESS GENERAL: -. FALL RISK SCREENING: SCREENING :ONE FALL WITH INJURY IN THE PAST YEAR PAIN SCREENING: PATIENT HAS A COMPLAINT OF ACUTE OR CHRONIC PAIN :YES LOCATION OF PAIN:RIGHT HIP, LEG(S) RIGHT LEG INTENSITY OF PAIN (SCALE OF 1 TO 10):9 WHAT DOES YOUR PAIN FEEL LIKE:ACHING, BURNING, CONTINOUS, SHARP, STABBING, TENDER, THROBBING, SORE, SHOOTING DURATION:CONTINOUS, CONSTANT PAIN IS INCREASED BY:ACTIVITIES PAIN IS DECREASED BY:USE OF PAIN MEDICATIONS, OTHERS HEAT NURSING NOTE: -. PAIN CENTER INTAKE QUESTIONS: DO YOU HAVE A HISTORY OF MRSA? :NO DO YOU TAKE A BLOOD THINNERS? :NO DO YOU HAVE ANY BLEEDING DISORDERS? :NO ANY NEW NUMBNESS OR WEAKNESS IN YOUR LEGS OR ARMS? :NO ANY PACEMAKER,DEFIBRILLATOR, OR DORSAL COLUMN STIMULATOR? :NO DO YOU HAVE ANY RASHES OR OPEN SORES? :NO ARE YOU ALLERGIC TO IV DYE? :NO ARE YOU DIABETIC? :NO ANY NEW PROBLEMS WITH YOUR MEDICATIONS? :NO HAVE YOU RECEIVED A VACCINE IN THE PAST 30 DAYS? :NO DO YOU PLAN TO RECEIVE A VACCINE IN THE NEXT 21 DAYS? :NO DO YOU TAKE ANY IMMUNOSUPPRESSIVE MEDICATIONS? :NO ANY HISTORY OF SEIZURES? :NO ANY HISTORY OF CARDIAC ISSUES OR EVENTS? :YES EVALUATED FOR IRREGULAR HEARTBEAT BY DR BRANTLEY-ASYMPTOMATIC DO YOU HAVE SLEEP APNEA? :NO ANY RECENT HEAD INJURY? :NO DO YOU HAVE ANY NEW INFECTIONS? :NO IS THERE A CHANCE YOU COULD BE ? :NO ARE YOU BREAST FEEDING? :NO WHEN DID YOU LAST EAT? : LAST NIGHT WHEN DID YOU LAST DRINK? : -THIS MORNING WHAT DID YOU LAST DRINK? : WATER NAME OF PERSON DRIVING YOU HOME? : - SAMIA DO YOU HAVE ANY OTHER QUESTIONS OR CONCERNS? : - CURRENT MEDICATIONS TAKING ZOFRAN 4MG TABLET 2 TABLETS ORALLY BID PRN TAKING CELECOXIB 200 MG CAPSULE TAKE ONE CAPSULE BY MOUTH EVERY DAY WITH FOOD ORAL DAILY TAKING OMEPRAZOLE 40MG CAPSULE DELAYED RELEASE TAKE ONE CAPSULE BY MOUTH DAILY TAKING ERGOCALCIFEROL [id number] UNIT CAPSULE 1 CAPSULE ORALLY ONCE A WEEK TAKING IMITREX 50 MG TABLET 1 TABLET NEEDED ONE TIME, MAY REPEAT IN 2 HOURS IF HEADACHE STILL PRESENT, MDD 2 ORALLY DIRECTED TAKING CYMBALTA 60 MG CAPSULE DELAYED RELEASE PARTICLES 1 CAPSULE ORALLY ONCE A DAY TAKING TRAZODONE HCL 50 MG TABLET 1 TABLET AT BEDTIME ORALLY ONCE A DAY TAKING MORPHINE SULFATE 15 MG TABLET 1 TAB ORALLY Q6H PRN MDD4, NOTES: 0500 TAKING BACLOFEN 20 MG TABLET 1 TABLET ORALLY 1 Q6H QID TAKING MOVANTIK 25 MG TABLET 1 TABLET IN THE MORNING ORALLY ONCE A DAY TAKING GABAPENTIN 600 MG TABLET 1 ORALLY 1 IN AM,1 MIDDAY AND 2 AT HS TAKING POTASSIUM CHLORIDE MARY ANNE ER 20 MEQ TABLET EXTENDED RELEASE 1 TABLET WITH FOOD ORALLY ONCE A DAY TAKING LASIX 20 MG TABLET 1 TABLET ORALLY ONCE A DAY TAKING LINZESS 145MCG CAPSULE 1 CAPSULE ORALLY ONCE A DAY NEEDED TAKING CLONIDINE HCL 0.1 MG TABLET 1 TABLET AT BEDTIME ORALLY ONCE A DAY NOT-TAKING ATORVASTATIN CALCIUM 10MG TABLET 1 TABLET ORALLY ONCE A DAY MEDICATION LIST REVIEWED AND RECONCILED WITH THE PATIENT PAST MEDICAL HISTORY DEPRESSION HYPERTENSION HYPERLIPIDEMIA INSOMNIA IBS REFLUX CHRONIC BACK PAIN ATHRITIS IN BACK BILATERAL HIP BURSITIS, RIGHT > LEFT NOCTURIA COPD-UNSPECIFIED PUMONARY NODULES-FOLLOWED BY [facility] DILATED COMMON BILE DUCT FROM 1.2 CM ON DECEMBER 2014 STUDY TO 1.7 CM 10/21/2019 PER PT MASS ON ADRENAL GLAND ALLERGIES PENICILLIN (FOR ALLERGIES USE ONLY): HIVES - ALLERGY ANCEF: HIVES - ALLERGY STRAWBERRIES/MANGOS: SEVERE HIVES, ITCHING - ALLERGY - ONSET DATE 01/10/2020 SURGICAL HISTORY BACK SURGERY 2009 GALL BLADDER 1989 HYSTERECTOMY 1993 LEFT BREAST BIOPSY AGE 14 RIGHT BREAST BIOPSY 2003 FAMILY HISTORY FATHER: , DIAGNOSED WITH UNSPECIFIED HEART DISEASE MOTHER: , UNSPECIFIED HEART DISEASE, UNSPECIFIED CEREBRAL ARTERY OCCLUSION WITH CEREBRAL INFARCTION, OTHER MALIGNANT NEOPLASM OF UNSPECIFIED SITE, OTHER SPECIFIED CONDITIONS INFLUENCING HEALTH STATUS MOTHER-ALZHEIMER\NMOTHER,AUNT,GRANDMOTHER ALL HAD BREAST CA. SOCIAL HISTORY GENERAL: TOBACCO USE ARE YOU A:CURRENT SMOKER ARE YOU INTERESTED IN QUITTING?NOT READY TO QUIT COUNSELED THE PATIENT ON SMOKING EFFECTS, EDUCATION [id number]/27/2020 HOW MANY CIGARETTES A DAY DO YOU SMOKE?6-10 HOW SOON AFTER YOU WAKE UP DO YOU SMOKE YOUR FIRST CIGARETTE?6-30 MIN HOW OFTEN DO YOU SMOKE CIGARETTES?EVERY DAY PATIENT COUNSELED ON THE DANGERS OF TOBACCO USE AND URGED TO QUIT:07/24/2020 ADDITIONAL FINDINGS: TOBACCO USER NONE SMOKING CESSATION INFORMATION GIVEN07/24/2020 VAPORNO E-CIGARETTENO LATEX QUESTIONNAIRE LATEX ALLERGY : HAVE YOU EVER DEVELOPED ANY TYPE OF REACTION AFTER HANDLING LATEX PRODUCTS SUCH RUBBER GLOVES, CONDOMS, DIAPHRAGMS, BALLOONS, SOCKS, OR UNDERWEAR?NO LATEX ALLERGY : HAVE YOU EVER DEVELOPED ANY TYPE OF REACTION DURING OR AFTER DENTAL APPOINTMENT, VAGINAL/RECTAL EXAMINATION, SURGICAL PROCEDURE, OR ANY OTHER EXPOSURE?NO LATEX RISK : HAVE YOU EVER HAD ANY DIFFICULTY BREATHING OR HIVES AFTER EATING OR HANDLING ANY FRUITS, OR VEGETABLES; SUCH KIWI, BANANAS, STONE FRUITS, OR CHESTNUTSYES - PLEASE INDICATE : MANGOS LATEX RISK : DO YOU HAVE A PREVIOUS PERSONAL HISTORY OF MORE THAN NINE SURGERIES, SPINA BIFIDA, OR REPEATED CATHERIZATIONS? NO LATEX RISK : ARE YOU FREQUENTLY EXPOSED TO LATEX PRODUCTS IN YOUR OCCUPATION?NO DATE ASKED : 10/23/2020 BMI CARE GOAL FOLLOW-UP ABOVE NORMAL BMI FOLLOW-UPDIETARY MANAGEMENT EDUCATION, GUIDANCE, AND COUNSELING ALCOHOL SCREENING DID YOU HAVE A DRINK CONTAINING ALCOHOL IN THE PAST YEAR?NO POINTS0 INTERPRETATIONNEGATIVE RECREATIONAL DRUG USE DRUG USE?NO CAFFEINE CAFFEINE USE?YES COFFEE,DIET PEPSI SEXUAL HX HAD SEX IN THE LAST 12 MONTHS (VAGINAL, ORAL, OR ANAL)?YES WITHMEN ONLY HAVE YOU EVER HAD AN STD?NO HIV / HEP-C SCREENING HIV TEST OFFERED TO PATIENT:YES DATE OFFERED:09/06/2019 CONSENT ON FILE TEST ACCEPTED:NO HEP-C TEST OFFERED TO PATIENT:YES DATE OFFERED:09/06/2019 CONSENT ON FILE REASON:PATIENT DECLINED TEST ACCEPTED:NO REASON:PATIENT DECLINED BROCHURE PROVIDED TO PATIENTNO HINDUISM [id number] NONDENOMINATIONAL LANGUAGE HEBREW. EDUCATION LEVEL OF EDUCATION:FINISHED HIGH SCHOOL 11TH GRADE LEARNING BARRIERS / SPECIAL NEEDS CHANGE FROM LAST VISIT?NO BARRIERS TO LEARNING?NO HEARING IMPAIRED?NO VISION IMPAIRED?YES :CORRECTIVE LENSES READING COGNITIVELY IMPAIRED?NO READINESS TO LEARN?YES LEARNING PREFERENCES?NO LEARNING CAPABILITIES PRESENT?YES EMOTIONAL BARRIERS?NO SPECIAL DEVICES?NO DUMBWAITER OPERATOR NEEDED?NO DOMESTIC VIOLENCE DO YOU FEEL SAFE IN YOUR ENVIRONMENT?YES DIET: REGULAR. MARITAL STATUS: . PAIN CLINIC PFS, CLERGY, PUBLIC HEALTH REFERRALS PFS REFERRAL NEEDED?NO CLERGY REFERRAL NEEDED?NO PUBLIC HEALTH REFERRAL NEEDED?NO WAS THE PROVIDER NOTIFIED OF ANY PERTINENT INFO?YES N/A HAS THE PATIENT BEEN EDUCATED REGARDING HIS/HER PLAN OF CARE?YES HAS THE PATIENT BEEN EDUCATED REGARDING PAIN, THE RISK FOR PAIN, THE IMPORTANCE OF EFFECTIVE PAIN MANAGEMENT, AND THE PAIN ASSESSMENT PROCESS?YES ADVANCE DIRECTIVE ADVANCE DIRECTIVE DISCUSSED WITH PATIENT:YES PT DOES NOT HAVE ANY ADVANCED DIRECTIVES AND SHE DECLINES INFORMATION ON HCP AT THIS TIME. THIS PATIENT LIVES AT HOME WITH HER AND GRAND-DAUGHTER, (WHOM SHE INTENDS TO ADOPT). SHE SLEEPS OKAY ONLY. SHE FRACTURED RIGHT ELBOW, RIGHT CHEEK FRACTURE, AND LEFT WRIST IN PAST. NO HISTORY OF AN EATING DISORDER. SHE DENIES HISTORY OF PHYSICAL/SEXUAL ABUSE. SHE WEARS SEAT BELTS. SHE IS CURRENT WITH IMMUNIZATIONS AND TETANUS. SHE IS UP TO DATE WITH DENTAL AND EYE EXAMINATIONS. SHE TAKES NO VITAMINS OR CALCIUM. HOSPITALIZATION/MAJOR DIAGNOSTIC PROCEDURE FOR SURGERIES CHILD X 2 [facility] 2-3 DAY FOR HYPOXIA 10/21/2019 VITAL SIGNS WT 138.4 LBS, HT 63 IN, BMI 24.51 INDEX, BP 135/76 MM HG, HR 76 /MIN, RR 18 /MIN, TEMP 97.1 F, OXYGEN SAT % 98%, SAFE IN ENV? (Y/N) YES, NA INITIALS SC 13:29, REVIEWED BY: KG. EXAMINATION GENERAL: THE PATIENT IS ALERT, ORIENTED TIMES THREE AND COOPERATIVE. LUNGS ARE CLEAR TO AUSCULTATION. HEART SHOWS REGULAR RHYTHM, NO MURMURS AND NO GALLOPS. ASSESSMENTS GREATER TROCHANTERIC BURSITIS OF RIGHT HIP - M70.61 (PRIMARY) TREATMENT GREATER TROCHANTERIC BURSITIS OF RIGHT HIP [facility] FLUORO GUIDANCE (PAIN)[id number] MEDICATION: ZOFRAN ODT TAB 4MG DISSOLVE ON TONGUE (ONDANSETRON)MALICK DEMARCO 10/24/2020 2:25:20 PM > LOT [id number] EXP MATT SEPULVEDA 10/24/2020 2:28:18 PM > VERIFIED MEDICATION: VALIUM TAB 5MG ORALLY (DIAZEPAM)MALICK DEMARCO 10/24/2020 2:26:08 PM > LOT [id number] EXP 04/2021 MATT SEPULVEDA 10/24/2020 2:28:55 PM > VERIFIED MALICK DEMARCO 10/24/2020 2:35:53 PM > GIVEN MEDICATION: OXYCODONE HCL TAB 10MG ORALLYMALICK DEMARCO 10/24/2020 2:26:55 PM > LOT#[id number] EXP 11/2021 MATT SEPULVEDA 10/24/2020 2:28:41 PM > VERIFIED MALICK DEMARCO 10/24/2020 2:36:19 PM > GIVEN OTHERS NOTES: PAT COMPLETED 10/23/20 M ALL ELDER. PROCEDURES PAIN NURSING RECORD PROCEDURE IN ROOM 1445, PHYSICIAN IN ROOM 1514, START 1521, FINISH 1530, PHYSICIAN OUT OF ROOM 1532, OUT OF ROOM 1535, ECG NORMAL SINUS, PATIENT SHIELDED YES, SAFETY STRAP YES, PREP CHLOROPREP Gema SEPULVEDA RN LOC: 1. ALERT, ORIENTED, MALICK DEMARCO 10/24/2020 3:10:03 PM > , MALICK DEMARCO 10/24/2020 3:10:03 PM > RESP: 1. REGULAR, NO DYSPNEA, MALICK DEMARCO 10/24/2020 3:10:10 PM > COLOR: 1. PINK, DAVMALICK 10/24/2020 3:10:16 PM > SKIN: 1. WARM, DRY, MALICK DEMARCO 10/24/2020 3:10:22 PM > POSITION: 3. LATERAL, MALICK DEMARCO 10/24/2020 3:10:33 PM > VITALS: IN ROOM 1445 116/67 66 18 92% ON ROOM AIR KGULLO 1500 121/57 64 91 18 @ 1500 113/68 65 91% 18 , MALICK DEMARCO 10/24/2020 3:28:51 PM > DISCHARGE: POST PAIN 0, DRESSING SITE DRY AND INTACT, IV N/A, GAIT STEADY, TEACHING COMPLETED, PATIENT ACKNOWLEDGES UNDERSTANDING YES GAVE POST PROCEDURE EDUCATION INCLUDING LIMITATIONS DUE TO PRESEDATE MEDICAITONS GIVEN PT VERBALIZES UNDERSTANDING, PATIENT DISCHARGED AT 1600 PRE PROCEDURE DIAGNOSIS BURSITIS AT THE RIGHT GREATER TROCHANTER OF THE FEMUR POST PROCEDURE DIAGNOSIS BURSITIS AT THE RIGHT GREATER TROCHANTER OF THE FEMUR PROCEDURE INJECTION AT THE BURSA OF THE RIGHT GREATER TROCHANTER OF THE FEMUR UNDER FLUOROSCOPIC GUIDANCE. SURGEON DR. STELLA ASHRAF WOOD STRIP BLOCK FLOOR INSTALLER NONE ANESTHESIA LOCAL PRE PROCEDURE NOTE THE PATIENT HAS A HISTORY OF RIGHT HIP PAIN. I EVALUATED THE PATIENT AND REVIEWED THE CHART. WE BOTH AGREE ON INJECTING OVER THE BURSA OF THE RIGHT GREATER TROCHANTER OF THE FEMUR. I DISCUSSED THE RISKS, BENEFITS AND ALTERNATIVES ASSOCIATED WITH THIS PROCEDURE. THE PATIENT WOULD LIKE TO PROCEED AND GAVE CONSENT TO PERFORM THE PROCEDURE. THE PATIENT DENIES UNEXPLAINABLE WEIGHT LOSS, FEVERS, CHILLS, OR CHANGES IN URINARY OR BOWEL CONTROL. THE PATIENT IS COVID-19 NEGATIVE DESCRIPTION OF PROCEDURE AFTER CONSENT WAS TAKEN, THE PATIENT WAS BROUGHT TO THE PROCEDURE ROOM AND PLACED IN THE LEFT LATERAL DECUBITUS POSITION. THE RIGHT HIP AREA WAS CLEANED WITH CHLORAPREP SOLUTION AND DRAPED ASEPTICALLY. THE PROCEDURE WAS DONE UNDER STERILE CONDITIONS. A TIMEOUT WAS PERFORMED WHERE LATERALITY AND THE SITE OF THE PROCEDURE WERE CHECKED AND CONFIRMED WITH EVERYONE IN THE ROOM AT 1516. UNDER FLUOROSCOPIC GUIDANCE, TARGET WAS SELECTED AT THE RIGHT GREATER TROCHANTER OF THE FEMUR. I CONFIRMED AGAIN WITH EVERYONE IN THE ROOM THE LATERALITY OF THE TARGET. LIDOCAINE WAS USED TO NUMB THE SKIN AND THE SUBCUTANEOUS TISSUE BELOW IT. SPINAL NEEDLE, 22-GAUGE, WAS ADVANCED UNDER FLUOROSCOPIC GUIDANCE AND FOLLOWING PATIENT FEEDBACK UNTIL THE TARGET WAS TOUCHED. POSITION OF THE NEEDLE WAS VERIFIED WITH AP AND LATERAL VIEWS. AFTER PROPER POSITION OF THE NEEDLE WAS ACHIEVED, ISOVUE-M 30%, 1.0 ML, WAS INJECTED SHOWING ADEQUATE SPREAD OF THE DYE. KENALOG 40 MG WAS INJECTED. THEN, A SOLUTION OF 30 ML OF BUPIVACAINE 0.125% WAS USED TO FLUSH THE SITE. THE MEDICATIONS WERE VERIFIED WITH THE NURSE. THERE WAS NO EVIDENCE OF BLOOD OR PARESTHESIA. THE PATIENT WAS SENT TO THE RECOVERY ROOM. THE PATIENT WAS MOVING THE EXTREMITIES AND DOING WELL. THERE WERE NO COMPLICATIONS DURING THE PROCEDURE. ESTIMATED BLOOD LOSS WAS LESS THAN 5 ML. FLUOROSCOPIC TIME WAS 16 SECONDS POST PROCEDURE NOTE I DISCUSSED THE PROCEDURE WITH THE PATIENT. WE WILL SEE THE PATIENT BACK IN SEVERAL WEEKS FOR FOLLOWUP. I AM LOOKING FOR LONG-LASTING PAIN RELIEF WITH THIS INTERVENTION. I, SARA GONSALVES, DOCUMENTED THE ABOVE INFORMATION ACTING A SCRIBE FOR DR. ASHARF. I HAVE REVIEWED THE ABOVE DOCUMENT, WRITTEN BY SARA GONSALVES, RETAIL SALES REPRESENTATIVE, AND I VERIFY THAT IT IS ACCURATE PROCEDURE CODES 13902 DRAIN/INJ JOINT/BURSA W/O US, MODIFIERS: RT [id number] NEEDLE LOCALIZATION BY XRAY, MODIFIERS: 26 DISPOSITION & COMMUNICATION FOLLOW UP FOLLOW UP WITH VACUUM TANK TENDER (REASON: POST RIGHT GREATER TROCHANTER OF THE FEMUR BURSAL INJECTION) ELECTRONICALLY SIGNED BY STELLA ASHRAF MD, MD ON 10/26/2020 AT 03:33 PM EST DISCLAIMER : THIS IS A VISIT SUMMARY EXTRACTED FROM THE [employer] CHART. IT IS NOT A COPY OF THE [facility]GR[facility]. LAURA
== END ==
LOC: M PAIN 13:00
PROVIDERS: ATTEND Anesthesiology
DX: M70.61 Trochanteric bursitis, right hip (principal); G47.00 Insomnia, unspecified; K21.9 Gastro-esophageal reflux disease without esophagitis; J44.9 Chronic obstructive pulmonary disease, unspecified; F17.210 Nicotine dependence, cigarettes, uncomplicated; Z86.59 Personal history of other mental and behavioral disorders; Z88.0 Allergy status to penicillin; Z88.1 Allergy status to other antibiotic agents; Z91.018 Allergy to other foods; Z79.891 Long term (current) use of opiate analgesic; Z79.899 Other long term (current) drug therapy
CPT/HCPCS: 20610; 77002; J3301; Q0162; Q9967

== ENCOUNTER → 2020-11-07 | Outpatient (CLI) | payer OTHER ==
[~2020-11-07] MED LIST changes: -BUPIVACAINE HCL 0.25% 30ML VIAL As Ordered ONE; +GABA-282 PO; -GABA-843 PO; -ISOVUE-M 300 61% 15ML VIAL As Ordered ONE; -LIDOCAINE 1% SDV 30ML VIAL As Ordered ONE; -ONDANSETRON 4 MG ORAL DISINTEGRATING TAB As Ordered ONE; -TRIAMCINOLONE ACETONIDE SUSP 40 MG/ML VIAL (J3301) As Ordered ONE; -diazePAM 5MG TABLET As Ordered ONE; -oxyCODONE 5MG TAB As Ordered ONE
--- NOTE | 2020-11-09 04:53 | ECWPNPC ---
PATIENT NAME: JOI MCCLAIN : 1965 GENDER: FEMALE VISIT DATE: 11/07/2020 DISCHARGE DATE: 11/07/20 0000 VISIT LOCKED DATE TIME: PHYSICIAN: REUBEN CRONIN PHYSICIAN PAGER NO: ACTIVE RESOURCE: REUBEN CRONIN REASON FOR APPOINTMENT 1. POST LEFT GREATER TROCHANTERIC BURSAL INJECTION HISTORY OF PRESENT ILLNESS GENERAL: 55 YEAR OLD FEMALE IN FOR POST GREATER TROCHANTERIC BURSAL INJECTION FOLLOW-UP. PATIENT FEELS THE PROCEDURE WAS SUCCESSFUL IT DID REDUCE HER PAIN FROM A 6-7 OUT OF 10 PREPROCEDURE TO A 0-3 OUT OF 10 POST PROCEDURE X7 DAYS. THE PATIENT HOWEVER DOES ADMIT TO A FALL APPROXIMATELY ONE DAY PRIOR TO THE INJECTIONS AND FEELS THAT IS WHY THEY DID NOT LAST LONG A HAVE IN THE PAST. SHE RATES HER PAIN CURRENTLY AT A 7 OUT OF 10 AND DESCRIBES IT ACHING, BURNING, SHARP, STABBING, THROBBING, AND SHOOTING. FALL RISK SCREENING: SCREENING :ONE FALL WITH INJURY IN THE PAST YEAR SLIPPED ON ICE INJURING RIGHT SHOULDER RIGHT HIP AND RIGHT LEG, PT DENIES SEEKING MEDICAL ATTENTION PAIN SCREENING: PATIENT HAS A COMPLAINT OF ACUTE OR CHRONIC PAIN :YES LOCATION OF PAIN:LOW BACK, LEFT HIP, RIGHT HIP INTENSITY OF PAIN (SCALE OF 1 TO 10):7 WHAT DOES YOUR PAIN FEEL LIKE:ACHING, BURNING, SHARP, STABBING, THROBBING, SHOOTING DURATION:CONTINOUS, CONSTANT PAIN IS INCREASED BY:ACTIVITIES PAIN IS DECREASED BY:USE OF PAIN MEDICATIONS TREATMENT/MEDICATIONS USED TO MANAGE PAIN:OPIOIDS LEVEL OF RELIEF FROM PAIN TREATMENTS IN THE PAST:25% PAIN HAS INTERFERED WITH THE FOLLOWING:BATHING/DRESSING, WALKING ABILITY, HOUSEWORK, SLEEP, TRANSPORTATION, TOILETING NURSING NOTE: -. PAIN CENTER INTAKE QUESTIONS: DO YOU HAVE A HISTORY OF MRSA? :NO DO YOU TAKE A BLOOD THINNERS? :NO DO YOU HAVE ANY BLEEDING DISORDERS? :NO ANY NEW NUMBNESS OR WEAKNESS IN YOUR LEGS OR ARMS? :NO ANY PACEMAKER,DEFIBRILLATOR, OR DORSAL COLUMN STIMULATOR? :NO DO YOU HAVE ANY RASHES OR OPEN SORES? :NO ARE YOU ALLERGIC TO IV DYE? :NO ARE YOU DIABETIC? :NO ANY NEW PROBLEMS WITH YOUR MEDICATIONS? :NO HAVE YOU RECEIVED A VACCINE IN THE PAST 30 DAYS? :NO DO YOU PLAN TO RECEIVE A VACCINE IN THE NEXT 21 DAYS? :NO DO YOU NEED ANY PRESCRIPTION? :NO DO YOU TAKE ANY IMMUNOSUPPRESSIVE MEDICATIONS? :NO IS THERE A CHANCE YOU COULD BE ? :NO ARE YOU BREAST FEEDING? :NO CURRENT MEDICATIONS TAKING ZOFRAN 4MG TABLET 2 TABLETS ORALLY BID PRN TAKING CELECOXIB 200 MG CAPSULE TAKE ONE CAPSULE BY MOUTH EVERY DAY WITH FOOD ORAL DAILY TAKING OMEPRAZOLE 40MG CAPSULE DELAYED RELEASE TAKE ONE CAPSULE BY MOUTH DAILY TAKING ERGOCALCIFEROL [id number] UNIT CAPSULE 1 CAPSULE ORALLY ONCE A WEEK TAKING IMITREX 50 MG TABLET 1 TABLET NEEDED ONE TIME, MAY REPEAT IN 2 HOURS IF HEADACHE STILL PRESENT, MDD 2 ORALLY DIRECTED TAKING CYMBALTA 60 MG CAPSULE DELAYED RELEASE PARTICLES 1 CAPSULE ORALLY ONCE A DAY TAKING TRAZODONE HCL 50 MG TABLET 1 TABLET AT BEDTIME ORALLY ONCE A DAY TAKING BACLOFEN 20 MG TABLET 1 TABLET ORALLY 1 Q6H QID TAKING MOVANTIK 25 MG TABLET 1 TABLET IN THE MORNING ORALLY ONCE A DAY TAKING GABAPENTIN 600 MG TABLET 1 ORALLY 1 IN AM,1 MIDDAY AND 2 AT HS TAKING POTASSIUM CHLORIDE MARY ANNE ER 20 MEQ TABLET EXTENDED RELEASE 1 TABLET WITH FOOD ORALLY ONCE A DAY TAKING CLONIDINE HCL 0.1 MG TABLET 1 TABLET AT BEDTIME ORALLY ONCE A DAY TAKING MORPHINE SULFATE 15 MG TABLET 1 TAB ORALLY Q6H PRN MDD4, NOTES: 0500 NOT-TAKING LASIX 20 MG TABLET 1 TABLET ORALLY ONCE A DAY NOT-TAKING LINZESS 145MCG CAPSULE 1 CAPSULE ORALLY ONCE A DAY NEEDED NOT-TAKING ATORVASTATIN CALCIUM 10MG TABLET 1 TABLET ORALLY ONCE A DAY MEDICATION LIST REVIEWED AND RECONCILED WITH THE PATIENT PAST MEDICAL HISTORY DEPRESSION HYPERTENSION HYPERLIPIDEMIA INSOMNIA IBS REFLUX CHRONIC BACK PAIN ATHRITIS IN BACK BILATERAL HIP BURSITIS, RIGHT > LEFT NOCTURIA COPD-UNSPECIFIED PUMONARY NODULES-FOLLOWED BY [facility] DILATED COMMON BILE DUCT FROM 1.2 CM ON DECEMBER 2014 STUDY TO 1.7 CM 10/21/2019 PER PT MASS ON ADRENAL GLAND ALLERGIES PENICILLIN (FOR ALLERGIES USE ONLY): HIVES - ALLERGY ANCEF: HIVES - ALLERGY STRAWBERRIES/MANGOS: SEVERE HIVES, ITCHING - ALLERGY - ONSET DATE 01/10/2020 SURGICAL HISTORY BACK SURGERY 2009 GALL BLADDER 1989 HYSTERECTOMY 1993 LEFT BREAST BIOPSY AGE 14 RIGHT BREAST BIOPSY 2003 SOCIAL HISTORY GENERAL: TOBACCO USE ARE YOU A:CURRENT SMOKER ARE YOU INTERESTED IN QUITTING?NOT READY TO QUIT COUNSELED THE PATIENT ON SMOKING EFFECTS, EDUCATION [id number]/19/2021 HOW MANY CIGARETTES A DAY DO YOU SMOKE?6-10 HOW SOON AFTER YOU WAKE UP DO YOU SMOKE YOUR FIRST CIGARETTE?6-30 MIN HOW OFTEN DO YOU SMOKE CIGARETTES?EVERY DAY PATIENT COUNSELED ON THE DANGERS OF TOBACCO USE AND URGED TO QUIT:07/24/2020 ADDITIONAL FINDINGS: TOBACCO USER NONE SMOKING CESSATION INFORMATION GIVEN07/24/2020 VAPORNO E-CIGARETTENO LATEX QUESTIONNAIRE LATEX ALLERGY : HAVE YOU EVER DEVELOPED ANY TYPE OF REACTION AFTER HANDLING LATEX PRODUCTS SUCH RUBBER GLOVES, CONDOMS, DIAPHRAGMS, BALLOONS, SOCKS, OR UNDERWEAR?NO LATEX ALLERGY : HAVE YOU EVER DEVELOPED ANY TYPE OF REACTION DURING OR AFTER DENTAL APPOINTMENT, VAGINAL/RECTAL EXAMINATION, SURGICAL PROCEDURE, OR ANY OTHER EXPOSURE?NO LATEX RISK : HAVE YOU EVER HAD ANY DIFFICULTY BREATHING OR HIVES AFTER EATING OR HANDLING ANY FRUITS, OR VEGETABLES; SUCH KIWI, BANANAS, STONE FRUITS, OR CHESTNUTSYES - PLEASE INDICATE : MANGOS LATEX RISK : DO YOU HAVE A PREVIOUS PERSONAL HISTORY OF MORE THAN NINE SURGERIES, SPINA BIFIDA, OR REPEATED CATHERIZATIONS? NO LATEX RISK : ARE YOU FREQUENTLY EXPOSED TO LATEX PRODUCTS IN YOUR OCCUPATION?NO DATE ASKED : 10/23/2020 BMI CARE GOAL FOLLOW-UP ABOVE NORMAL BMI FOLLOW-UPDIETARY MANAGEMENT EDUCATION, GUIDANCE, AND COUNSELING ALCOHOL SCREENING DID YOU HAVE A DRINK CONTAINING ALCOHOL IN THE PAST YEAR?NO POINTS0 INTERPRETATIONNEGATIVE RECREATIONAL DRUG USE DRUG USE?NO CAFFEINE CAFFEINE USE?YES COFFEE,DIET PEPSI SEXUAL HX HAD SEX IN THE LAST 12 MONTHS (VAGINAL, ORAL, OR ANAL)?YES WITHMEN ONLY HAVE YOU EVER HAD AN STD?NO HIV / HEP-C SCREENING HIV TEST OFFERED TO PATIENT:YES DATE OFFERED:09/06/2019 CONSENT ON FILE TEST ACCEPTED:NO HEP-C TEST OFFERED TO PATIENT:YES DATE OFFERED:09/06/2019 CONSENT ON FILE REASON:PATIENT DECLINED TEST ACCEPTED:NO REASON:PATIENT DECLINED BROCHURE PROVIDED TO PATIENTNO YAZIDI [id number] TAOIST LANGUAGE AZERI. EDUCATION LEVEL OF EDUCATION:FINISHED HIGH SCHOOL 11TH GRADE LEARNING BARRIERS / SPECIAL NEEDS CHANGE FROM LAST VISIT?NO BARRIERS TO LEARNING?NO HEARING IMPAIRED?NO VISION IMPAIRED?YES COGNITIVELY IMPAIRED?NO :CORRECTIVE LENSES READING READINESS TO LEARN?YES LEARNING PREFERENCES?NO LEARNING CAPABILITIES PRESENT?YES EMOTIONAL BARRIERS?NO SPECIAL DEVICES?NO FLATTENING MACHINE OPERATOR NEEDED?NO DOMESTIC VIOLENCE DO YOU FEEL SAFE IN YOUR ENVIRONMENT?YES DIET: REGULAR. MARITAL STATUS: . PAIN CLINIC PFS, CLERGY, PUBLIC HEALTH REFERRALS PFS REFERRAL NEEDED?NO CLERGY REFERRAL NEEDED?NO PUBLIC HEALTH REFERRAL NEEDED?NO WAS THE PROVIDER NOTIFIED OF ANY PERTINENT INFO?YES N/A HAS THE PATIENT BEEN EDUCATED REGARDING HIS/HER PLAN OF CARE?YES HAS THE PATIENT BEEN EDUCATED REGARDING PAIN, THE RISK FOR PAIN, THE IMPORTANCE OF EFFECTIVE PAIN MANAGEMENT, AND THE PAIN ASSESSMENT PROCESS?YES ADVANCE DIRECTIVE ADVANCE DIRECTIVE DISCUSSED WITH PATIENT:YES PT DOES NOT HAVE ANY ADVANCED DIRECTIVES AND SHE DECLINES INFORMATION ON HCP AT THIS TIME. THIS PATIENT LIVES AT HOME WITH HER AND GRAND-DAUGHTER, (WHOM SHE INTENDS TO ADOPT). SHE SLEEPS OKAY ONLY. SHE FRACTURED RIGHT ELBOW, RIGHT CHEEK FRACTURE, AND LEFT WRIST IN PAST. NO HISTORY OF AN EATING DISORDER. SHE DENIES HISTORY OF PHYSICAL/SEXUAL ABUSE. SHE WEARS SEAT BELTS. SHE IS CURRENT WITH IMMUNIZATIONS AND TETANUS. SHE IS UP TO DATE WITH DENTAL AND EYE EXAMINATIONS. SHE TAKES NO VITAMINS OR CALCIUM. HOSPITALIZATION/MAJOR DIAGNOSTIC PROCEDURE FOR SURGERIES CHILD X 2 SMC 2-3 DAY FOR HYPOXIA 10/21/2019 REVIEW OF SYSTEMS CONSTITUTIONAL: ANY RECENT FEVER NO . CHILLS NO . WEIGHT CHANGE OF UNKNOWN REASONS NO . GASTROENTEROLOGY: NEW UNEXPLAINABLE CHANGES IN BOWEL CONTROL NO . CONSTIPATION NO . GENITOURINARY: ANY NEW CHANGE IN BLADDER CONTROL? NO . NEUROLOGY: NEW ONSET DIZZINESS OR NEUROLOGICAL CHANGES NOT MENTIONED NO . NEW NUMBNESS OR PAIN PATTERNS NOT MENTIONED AND PERTINENT TO TODAY'S VISIT NO . CARDIOLOGY: NEW CHEST PRESSURE NO . NEW CHEST PAIN NO . RESPIRATORY: UNEXPLAINABLE COUGH NO . NEW SHORTNESS OF BREATH NO . VITAL SIGNS WT 138 LBS, HT 63 IN, BMI 24.44 INDEX, BP 142/67 MM HG, HR 94 /MIN, RR 16 /MIN, TEMP 97.5 F, OXYGEN SAT % 96, SAFE IN ENV? (Y/N) Y, REVIEWED BY: EM. EXAMINATION GENERAL EXAMINATION: GENERALNO ACUTE DISTRESS, WELL NOURISHED AND HYDRATED. PSYCHAPPROPRIATE MOOD AND AFFECT . LUNGS:CLEAR TO AUSCULTATION BILATERALLY, NO WHEEZES, RHONCHI, RALES. HEART:NO MURMURS, REGULAR RATE AND RHYTHM. MUSCULOSKELETAL:POINT TENDER OVER RIGHT GREATER TROCHANTER . ASSESSMENTS OTHER CHRONIC PAIN - G89.29 (PRIMARY) TROCHANTERIC BURSITIS, RIGHT HIP - M70.61 TREATMENT OTHER CHRONIC PAIN PAIN PROCEDURE LOGDATE OF PROCEDURE10/24/2020ROCEDURE:RIGHT GREATER TROCHANTER OF THE FEMUR BURSAL INJECTIONAMOUNT OF PRE SEDATEZOFRAN 4MG,VALIUM 5MG,OXYCODONE 10MGRESULT:PRE-6-7/10 POST 0-3/10 X 7 DAYS NOTES: 55-YEAR-OLD FEMALE IN FOR POST GREATER TROCHANTERIC BURSAL INJECTION FOLLOW-UP. GIVEN PRESENTING SYMPTOMS, CONSULT WITH DR. ASHRAF, AND RESULTS OF PHYSICAL EXAMINATION RECOMMENDED RIGHT GREATER TROCHANTERIC BURSAL INJECTION WITH POSTPROCEDURAL FOLLOW-UP. PATIENT EXPRESSED UNDERSTANDING OF AND WAS IN AGREEMENT WITH TREATMENT PLAN. GIVEN TIME TO ASK QUESTIONS AND EXPRESS CONCERNS. , ISTOP REGISTRY REVIEWED AND DEMONSTRATES COMPLLIANCE. (REF # [id number] ) BRINGS IN MEDICATIONS WHICH IS APPROPRIATE FOR WHAT WAS DISPENSED. RECENT URINE TOXICOLOGY REVIEWED. NO UNAUTHORIZED MEDICATIONS. NO ILLICIT SUBSTANCES AND PRESCRIBED MEDICATIONS WERE PRESENT. PROCEDURE CODES [id number] ESTABILISHED PATIENT [facility] CHARGE DISPOSITION & COMMUNICATION FOLLOW UP POSTPROCEDURE (REASON: RIGHT GREATER TROCHANTERIC BURSAL INJECTION) ELECTRONICALLY SIGNED BY MERI ZHENG ON 11/08/2020 AT 09:21 AM EST DISCLAIMER : THIS IS A VISIT SUMMARY EXTRACTED FROM THE [facility] CHART. IT IS NOT A COPY OF THE [employer] PROGRESS NOTE. LAURA
== END ==
LOC: M PAIN 13:30
PROVIDERS: ATTEND Family Medicine
DX: M70.61 Trochanteric bursitis, right hip (principal); G89.29 Other chronic pain; G47.00 Insomnia, unspecified; K21.9 Gastro-esophageal reflux disease without esophagitis; J44.9 Chronic obstructive pulmonary disease, unspecified; F17.210 Nicotine dependence, cigarettes, uncomplicated; Z86.59 Personal history of other mental and behavioral disorders; Z88.0 Allergy status to penicillin; Z88.1 Allergy status to other antibiotic agents; Z91.018 Allergy to other foods; Z79.891 Long term (current) use of opiate analgesic; Z79.899 Other long term (current) drug therapy

== ENCOUNTER → 2020-11-17 | Outpatient (CLI) | payer OTHER | LOC: M LABSMTC 13:58 | PROVIDERS: ATTEND Anesthesiology | DX: Z20.822 Contact with and (suspected) exposure to COVID-19 (principal) ==

== ENCOUNTER → 2020-11-22 | Outpatient (CLI) | payer OTHER ==
[~2020-11-22] MED LIST changes: +BUPIVACAINE HCL 0.25% 30ML VIAL As Ordered ONE; +ISOVUE-M 300 61% 15ML VIAL As Ordered ONE; +LIDOCAINE 1% SDV 30ML VIAL As Ordered ONE; +ONDANSETRON 4 MG ORAL DISINTEGRATING TAB As Ordered ONE; +TRIAMCINOLONE ACETONIDE SUSP 40 MG/ML VIAL (J3301) As Ordered ONE; +diazePAM 5MG TABLET As Ordered ONE; +oxyCODONE 5MG TAB As Ordered ONE
--- NOTE | 2020-11-22 16:00 | REP ---
INDICATION: R GREATER TROCANTERIC BURSA INJECTION. COMPARISON: None. TECHNIQUE: Four views 18 seconds of fluoroscopy time is reported. FINDINGS: A sequence of 4 last image hold fluoroscopically obtained spot radiographs of the right hip document needle position and contrast injection associated with injection procedure. IMPRESSION: Procedural imaging. <Electronically signed by Rafael Garcia > 11/22/20 1695
--- NOTE | 2020-11-24 00:22 | ECWPNPC ---
PATIENT NAME: JOI MCCLAIN : 1965 GENDER: FEMALE VISIT DATE: 11/22/2020 DISCHARGE DATE: 11/22/201622 VISIT LOCKED DATE TIME: PHYSICIAN: STELLA ASHRAF MD PHYSICIAN PAGER NO: ACTIVE RESOURCE: STELLA ASHRAF MD REASON FOR APPOINTMENT 1. RIGHT GREATER TROCHANTER OF THE FEMUR BURSAL INJECTION HISTORY OF PRESENT ILLNESS GENERAL: -. FALL RISK SCREENING: SCREENING :ONE FALL WITHOUT INJURY IN THE PAST YEAR PAIN SCREENING: PATIENT HAS A COMPLAINT OF ACUTE OR CHRONIC PAIN :YES LOCATION OF PAIN:LOW BACK, LEFT HIP, RIGHT HIP INTENSITY OF PAIN (SCALE OF 1 TO 10):8 WHAT DOES YOUR PAIN FEEL LIKE:ACHING, BURNING, SHARP, STABBING, THROBBING, SHOOTING DURATION:CONTINOUS, CONSTANT PAIN IS INCREASED BY:ACTIVITIES PAIN IS DECREASED BY:USE OF PAIN MEDICATIONS TREATMENT/MEDICATIONS USED TO MANAGE PAIN:OPIOIDS LEVEL OF RELIEF FROM PAIN TREATMENTS IN THE PAST:25% PAIN HAS INTERFERED WITH THE FOLLOWING:BATHING/DRESSING, WALKING ABILITY, HOUSEWORK, SLEEP, TRANSPORTATION, TOILETING NURSING NOTE: -. PAIN CENTER INTAKE QUESTIONS: DO YOU HAVE A HISTORY OF MRSA? :NO DO YOU TAKE A BLOOD THINNERS? :NO DO YOU HAVE ANY BLEEDING DISORDERS? :NO ANY NEW NUMBNESS OR WEAKNESS IN YOUR LEGS OR ARMS? :YES LEGS, NOT NEW ANY PACEMAKER,DEFIBRILLATOR, OR DORSAL COLUMN STIMULATOR? :NO DO YOU HAVE ANY RASHES OR OPEN SORES? :NO ARE YOU ALLERGIC TO IV DYE? :NO ARE YOU DIABETIC? :NO ANY NEW PROBLEMS WITH YOUR MEDICATIONS? :NO HAVE YOU RECEIVED A VACCINE IN THE PAST 30 DAYS? :NO DO YOU PLAN TO RECEIVE A VACCINE IN THE NEXT 21 DAYS? :NO DO YOU TAKE ANY IMMUNOSUPPRESSIVE MEDICATIONS? :NO ANY HISTORY OF SEIZURES? :NO ANY HISTORY OF CARDIAC ISSUES OR EVENTS? :NO DO YOU HAVE SLEEP APNEA? :NO ANY RECENT HEAD INJURY? :NO DO YOU HAVE ANY NEW INFECTIONS? :NO IS THERE A CHANCE YOU COULD BE ? :NO ARE YOU BREAST FEEDING? :NO WHEN DID YOU LAST EAT? : -1999 WHEN DID YOU LAST DRINK? : -11-22-20 08 WHAT DID YOU LAST DRINK? : -DIET PEPSI NAME OF PERSON DRIVING YOU HOME? : SAMIA, DO YOU HAVE ANY OTHER QUESTIONS OR CONCERNS? : -DENIES CURRENT MEDICATIONS TAKING ZOFRAN 4MG TABLET 2 TABLETS ORALLY BID PRN TAKING OMEPRAZOLE 40MG CAPSULE DELAYED RELEASE TAKE ONE CAPSULE BY MOUTH DAILY TAKING ERGOCALCIFEROL [id number] UNIT CAPSULE 1 CAPSULE ORALLY ONCE A WEEK TAKING IMITREX 50 MG TABLET 1 TABLET NEEDED ONE TIME, MAY REPEAT IN 2 HOURS IF HEADACHE STILL PRESENT, MDD 2 ORALLY DIRECTED TAKING CYMBALTA 60 MG CAPSULE DELAYED RELEASE PARTICLES 1 CAPSULE ORALLY ONCE A DAY TAKING MORPHINE SULFATE 15 MG TABLET 1 TAB ORALLY Q6H PRN MDD4, NOTES: 11/22/20 0600 TAKING TRAZODONE HCL 50 MG TABLET 1 TABLET AT BEDTIME ORALLY ONCE A DAY, NOTES: 11/20/20 2100 TAKING BACLOFEN 20 MG TABLET 1 TABLET ORALLY 1 Q6H QID, NOTES: 11/21/20 0900 TAKING MOVANTIK 25 MG TABLET 1 TABLET IN THE MORNING ORALLY ONCE A DAY TAKING GABAPENTIN 600 MG TABLET 1 ORALLY 1 IN AM,1 MIDDAY AND 2 AT HS, NOTES: 11/22/2020 TAKING CELECOXIB 200 MG CAPSULE TAKE ONE CAPSULE BY MOUTH EVERY DAY WITH FOOD ORAL DAILY NOT-TAKING POTASSIUM CHLORIDE MARY ANNE ER 20 MEQ TABLET EXTENDED RELEASE 1 TABLET WITH FOOD ORALLY ONCE A DAY NOT-TAKING CLONIDINE HCL 0.1 MG TABLET 1 TABLET AT BEDTIME ORALLY ONCE A DAY NOT-TAKING LASIX 20 MG TABLET 1 TABLET ORALLY ONCE A DAY NOT-TAKING LINZESS 145MCG CAPSULE 1 CAPSULE ORALLY ONCE A DAY NEEDED NOT-TAKING ATORVASTATIN CALCIUM 10MG TABLET 1 TABLET ORALLY ONCE A DAY MEDICATION LIST REVIEWED AND RECONCILED WITH THE PATIENT PAST MEDICAL HISTORY DEPRESSION HYPERTENSION HYPERLIPIDEMIA INSOMNIA IBS REFLUX CHRONIC BACK PAIN ATHRITIS IN BACK BILATERAL HIP BURSITIS, RIGHT > LEFT NOCTURIA COPD-UNSPECIFIED PUMONARY NODULES-FOLLOWED BY [facility] DILATED COMMON BILE DUCT FROM 1.2 CM ON DECEMBER 2014 STUDY TO 1.7 CM 10/21/2019 PER PT MASS ON ADRENAL GLAND ALLERGIES PENICILLIN (FOR ALLERGIES USE ONLY): HIVES - ALLERGY ANCEF: HIVES - ALLERGY STRAWBERRIES/MANGOS: SEVERE HIVES, ITCHING - ALLERGY - ONSET DATE 01/10/2020 SOCIAL HISTORY GENERAL: TOBACCO USE ARE YOU A:CURRENT SMOKER ARE YOU INTERESTED IN QUITTING?NOT READY TO QUIT COUNSELED THE PATIENT ON SMOKING EFFECTS, EDUCATION APRSDLHF63/02/2021 HOW MANY CIGARETTES A DAY DO YOU SMOKE?6-10 HOW SOON AFTER YOU WAKE UP DO YOU SMOKE YOUR FIRST CIGARETTE?6-30 MIN HOW OFTEN DO YOU SMOKE CIGARETTES?EVERY DAY PATIENT COUNSELED ON THE DANGERS OF TOBACCO USE AND URGED TO QUIT:07/24/2020 ADDITIONAL FINDINGS: TOBACCO USER NONE SMOKING CESSATION INFORMATION GIVEN07/24/2020 VAPORNO E-CIGARETTENO LATEX QUESTIONNAIRE LATEX ALLERGY : HAVE YOU EVER DEVELOPED ANY TYPE OF REACTION AFTER HANDLING LATEX PRODUCTS SUCH RUBBER GLOVES, CONDOMS, DIAPHRAGMS, BALLOONS, SOCKS, OR UNDERWEAR?NO LATEX ALLERGY : HAVE YOU EVER DEVELOPED ANY TYPE OF REACTION DURING OR AFTER DENTAL APPOINTMENT, VAGINAL/RECTAL EXAMINATION, SURGICAL PROCEDURE, OR ANY OTHER EXPOSURE?NO LATEX RISK : HAVE YOU EVER HAD ANY DIFFICULTY BREATHING OR HIVES AFTER EATING OR HANDLING ANY FRUITS, OR VEGETABLES; SUCH KIWI, BANANAS, STONE FRUITS, OR CHESTNUTSYES - PLEASE INDICATE : MANGOS LATEX RISK : DO YOU HAVE A PREVIOUS PERSONAL HISTORY OF MORE THAN NINE SURGERIES, SPINA BIFIDA, OR REPEATED CATHERIZATIONS? NO LATEX RISK : ARE YOU FREQUENTLY EXPOSED TO LATEX PRODUCTS IN YOUR OCCUPATION?NO DATE ASKED : 10/23/2020 BMI CARE GOAL FOLLOW-UP ABOVE NORMAL BMI FOLLOW-UPDIETARY MANAGEMENT EDUCATION, GUIDANCE, AND COUNSELING ALCOHOL SCREENING DID YOU HAVE A DRINK CONTAINING ALCOHOL IN THE PAST YEAR?NO POINTS0 INTERPRETATIONNEGATIVE RECREATIONAL DRUG USE DRUG USE?NO CAFFEINE CAFFEINE USE?YES COFFEE,DIET PEPSI SEXUAL HX HAD SEX IN THE LAST 12 MONTHS (VAGINAL, ORAL, OR ANAL)?YES WITHMEN ONLY HAVE YOU EVER HAD AN STD?NO HIV / HEP-C SCREENING HIV TEST OFFERED TO PATIENT:YES DATE OFFERED:09/06/2019 CONSENT ON FILE TEST ACCEPTED:NO HEP-C TEST OFFERED TO PATIENT:YES DATE OFFERED:09/06/2019 CONSENT ON FILE REASON:PATIENT DECLINED TEST ACCEPTED:NO REASON:PATIENT DECLINED BROCHURE PROVIDED TO PATIENTNO MANDAEN [id number] BUDDHIST LANGUAGE NIUEAN. EDUCATION LEVEL OF EDUCATION:FINISHED HIGH SCHOOL 11TH GRADE LEARNING BARRIERS / SPECIAL NEEDS CHANGE FROM LAST VISIT?NO BARRIERS TO LEARNING?NO HEARING IMPAIRED?NO VISION IMPAIRED?YES COGNITIVELY IMPAIRED?NO :CORRECTIVE LENSES READING READINESS TO LEARN?YES LEARNING PREFERENCES?NO LEARNING CAPABILITIES PRESENT?YES EMOTIONAL BARRIERS?NO SPECIAL DEVICES?NO BUSINESS PROCESS ASSOCIATE NEEDED?NO DOMESTIC VIOLENCE DO YOU FEEL SAFE IN YOUR ENVIRONMENT?YES DIET: REGULAR. MARITAL STATUS: . - PFS REFERRAL NEEDED?NO CLERGY REFERRAL NEEDED?NO PUBLIC HEALTH REFERRAL NEEDED?NO WAS THE PROVIDER NOTIFIED OF ANY PERTINENT INFO?YES N/A HAS THE PATIENT BEEN EDUCATED REGARDING HIS/HER PLAN OF CARE?YES HAS THE PATIENT BEEN EDUCATED REGARDING PAIN, THE RISK FOR PAIN, THE IMPORTANCE OF EFFECTIVE PAIN MANAGEMENT, AND THE PAIN ASSESSMENT PROCESS?YES ADVANCE DIRECTIVE ADVANCE DIRECTIVE DISCUSSED WITH PATIENT:YES PT DOES NOT HAVE ANY ADVANCED DIRECTIVES AND SHE DECLINES INFORMATION ON HCP AT THIS TIME. THIS PATIENT LIVES AT HOME WITH HER AND GRAND-DAUGHTER, (WHOM SHE INTENDS TO ADOPT). SHE SLEEPS OKAY ONLY. SHE FRACTURED RIGHT ELBOW, RIGHT CHEEK FRACTURE, AND LEFT WRIST IN PAST. NO HISTORY OF AN EATING DISORDER. SHE DENIES HISTORY OF PHYSICAL/SEXUAL ABUSE. SHE WEARS SEAT BELTS. SHE IS CURRENT WITH IMMUNIZATIONS AND TETANUS. SHE IS UP TO DATE WITH DENTAL AND EYE EXAMINATIONS. SHE TAKES NO VITAMINS OR CALCIUM. VITAL SIGNS WT 140.6 LBS, HT 63 IN, BMI 24.90 INDEX, BP 125/58 MM HG, HR 83 /MIN, RR 18 /MIN, TEMP 97.2 F, OXYGEN SAT % 93%, SAFE IN ENV? (Y/N) YES, NA INITIALS AW 1420, REVIEWED BY: EFREN. EXAMINATION GENERAL EXAMINATION: THE PATIENT IS ALERT, ORIENTED TIMES THREE AND COOPERATIVE. LUNGS ARE CLEAR TO AUSCULTATION. HEART SHOWS REGULAR RHYTHM, NO MURMURS AND NO GALLOPS. ASSESSMENTS GREATER TROCHANTERIC BURSITIS - M70.60 (PRIMARY) TREATMENT GREATER TROCHANTERIC BURSITIS LAB: MEDICATION: (PAIN) ZOFRAN ODT TAB 4MG DISSOLVE ON TONGUE (ONDANSETRON) (ORDERED FOR 11/22/2020) MATT SEPULVEDA 11/22/2020 2:44:01 PM > VERIFIED ANTON WILLARD 11/22/2020 2:46:44 PM > ADMINISTERED LAB: MEDICATION: OXYCODONE HCL TAB 10MG ORALLY (ORDERED FOR 11/22/2020) MATT SEPULVEDA 11/22/2020 2:44:23 PM > VERIFIED ANTON WILLARD 11/22/2020 2:47:06 PM > ADMINISTERED LAB: MEDICATION: VALIUM TAB 10MG ORALLY (DIAZEPAM) (ORDERED FOR 11/22/2020) MATT SEPULVEDA 11/22/2020 2:44:40 PM > VERIFIED ANTON WILLARD 11/22/2020 2:47:35 PM > ADMINISTERED [facility] FLUORO GUIDANCE (PAIN)[id number] COMPLETION OF PROCEDURAL VISIT WHEN MEETS CRITERIAEDMUNDOCARISAANTON 11/22/2020 4:28:08 PM > CRITERIA MET OTHERS NOTES: PAT DONE 11/21/20 Joanna SEPULVEDA [employer]DS RESTORATION SPECIALIST. PROCEDURES PAIN NURSING RECORD PROCEDURE IN ROOM 1505, PHYSICIAN IN ROOM 1523, START 1527, FINISH 1542, PHYSICIAN OUT OF ROOM 1542, OUT OF ROOM 1551, ECG OTHER TRIGEMINY - DR ASHRAF AWARE, PATIENT SHIELDED YES, SAFETY STRAP YES, PREP CHLOROPREP BY Joanna SEPULVEDA RN, DRESSING TEGADERM BY DR ASHRAF LOC: 1. ALERT, ORIENTED, ANTON WILLARD 11/22/2020 1526PM > RESP: 1. REGULAR, NO DYSPNEA, , ANTON WILLARD [id number] PM > COLOR: 1. PINK, 1526 11/22/20 SKIN: 1. WARM, DRY 1526 11/22/20 POSITION: 3. LATERAL 1526 11/22/20 VITALS: 1508 - 70, 91%, 137/77 1515 - 72, 92%, 147/66 1530 - 75, 88%, 131/44 1623- EXIT VITALS 74, 93%, 131/76, R 18 NOTES Tip WILLARD RN COMPLETION OF PROCEDURE APPOINTMENT: POST PAIN 0, DRESSING SITE DRY AND INTACT, IV N/A, GAIT STEADY, TEACHING COMPLETED, PATIENT ACKNOWLEDGES UNDERSTANDING YES PT V/U OF TEACHING, PROCEDURE APPOINTMENT COMPLETED AT 1600 : HEART RYTHM TRIGEMINY. DR ASHRAF AWARE. PATIENT DENIES S/S OF CP, NAUSEA, SOB OR OTHER CARDIAC SX. CLEARANCE NOTE FOUND IN PATIENTS CHART FROM [facility]E STATING PATIENT IS CLEARED FOR FUTURE PROCEDURES INCLUDING VISIT WITH DR BRANTLEY ON 01/19/2020 TO ALSO PROCEED WITH PROCEDURES REGARDING HEART RYTHM. TBRADLEYRN PRE PROCEDURE DIAGNOSIS BURSITIS AT THE RIGHT GREATER TROCHANTER OF THE FEMUR POST PROCEDURE DIAGNOSIS BURSITIS AT THE RIGHT GREATER TROCHANTER OF THE FEMUR PROCEDURE INJECTION AT THE BURSA OF THE RIGHT GREATER TROCHANTER OF THE FEMUR UNDER FLUOROSCOPIC GUIDANCE. SURGEON DR. STELLA ASHRAF COREMAKER PIPE NONE ANESTHESIA LOCAL PRE PROCEDURE NOTE THE PATIENT HAS A HISTORY OF RIGHT HIP PAIN. I EVALUATED THE PATIENT AND REVIEWED THE CHART. WE BOTH AGREE ON INJECTING OVER THE BURSA OF THE RIGHT GREATER TROCHANTER OF THE FEMUR. I DISCUSSED THE RISKS, BENEFITS AND ALTERNATIVES ASSOCIATED WITH THIS PROCEDURE. THE PATIENT WOULD LIKE TO PROCEED AND GAVE CONSENT TO PERFORM THE PROCEDURE. THE PATIENT DENIES UNEXPLAINABLE WEIGHT LOSS, FEVERS, CHILLS, OR CHANGES IN URINARY OR BOWEL CONTROL. PATIENT IS COVID-19 NEGATIVE. DESCRIPTION OF PROCEDURE AFTER CONSENT WAS TAKEN, THE PATIENT WAS BROUGHT TO THE PROCEDURE ROOM AND PLACED IN THE LEFT LATERAL DECUBITUS POSITION. THE RIGHT HIP AREA WAS CLEANED WITH CHLORAPREP SOLUTION AND DRAPED ASEPTICALLY. THE PROCEDURE WAS DONE UNDER STERILE CONDITIONS. A TIMEOUT WAS PERFORMED WHERE THE CONSENTED SITE WAS VERIFIED WITH EVERYONE IN THE ROOM. UNDER FLUOROSCOPIC GUIDANCE, TARGET WAS SELECTED AT THE RIGHT GREATER TROCHANTER OF THE FEMUR. I CONFIRMED AGAIN THE SITE OF THE TARGET. LIDOCAINE WAS USED TO NUMB THE SKIN AND THE SUBCUTANEOUS TISSUE BELOW IT. SPINAL NEEDLE, 22-GAUGE, WAS ADVANCED UNDER FLUOROSCOPIC GUIDANCE AND FOLLOWING PATIENT FEEDBACK UNTIL THE TARGET WAS TOUCHED. POSITION OF THE NEEDLE WAS VERIFIED WITH AP AND LATERAL VIEWS. AFTER PROPER POSITION OF THE NEEDLE WAS ACHIEVED, ISOVUE-M 30%, 1.0 ML, WAS INJECTED SHOWING ADEQUATE SPREAD OF THE DYE. KENALOG 40 MG WAS INJECTED. THEN, A SOLUTION OF 30 ML OF BUPIVACAINE 0.125% WAS USED TO FLUSH THE SITE. THE MEDICATIONS WERE VERIFIED WITH THE NURSE. THERE WAS NO EVIDENCE OF BLOOD OR PARESTHESIA. THE PATIENT WAS SENT TO THE RECOVERY ROOM. THE PATIENT WAS MOVING THE EXTREMITIES AND DOING WELL. THERE WERE NO COMPLICATIONS DURING THE PROCEDURE. ESTIMATED BLOOD LOSS WAS LESS THAN 5 ML. FLUOROSCOPIC TIME WAS 18 SECONDS. POST PROCEDURE NOTE THE PATIENT WAS SHOWING TODAY 1 PVC EVERY 3 BEATS. VITAL SIGNS WERE STABLE. I WOULD LIKE TO DISCUSS THIS WITH THE PRIMARY CARE. THE PATIENT WAS EVALUATED BY DR. BRANTLEY ON 01/19/2020. I WANT TO SEE IF THIS IS THE SAME PROBLEM BEFORE. I PUT A COPY OF THE WAVES IN THE PATIENT'S CHART. I DISCUSSED THE PROCEDURE WITH THE PATIENT. WE WILL SEE THE PATIENT BACK IN SEVERAL WEEKS FOR FOLLOWUP. I AM LOOKING FOR LONG-LASTING PAIN RELIEF WITH THIS INTERVENTION. I, SARA GONSALVES, DOCUMENTED THE ABOVE INFORMATION ACTING A SCRIBE FOR DR. ASHRAF. I HAVE REVIEWED THE ABOVE DOCUMENT, WRITTEN BY SARA GONSALVES, INTERNET SALES REPRESENTATIVE, AND I VERIFY THAT IT IS ACCURATE PROCEDURE CODES 38561 DRAIN/INJ JOINT/BURSA W/O US, MODIFIERS: [place] [id number] NEEDLE LOCALIZATION BY XRAY, MODIFIERS: 26 DISPOSITION & COMMUNICATION FOLLOW UP FOLLOW UP WITH ALTERATION SPECIALIST (REASON: POST RIGHT GREATER TROCHANTER OF THE FEMUR BURSAL INJECTION ) ELECTRONICALLY SIGNED BY STELLA ASHRAF MD, ON 11/23/2020 AT 03:03 PM EST DISCLAIMER : THIS IS A VISIT SUMMARY EXTRACTED FROM THE [employer] CHART. IT IS NOT A COPY OF THE [employer] PROGRESS NOTE. LAURA
--- NOTE | 2020-11-24 00:23 | ECWPNPC ---
PATIENT NAME: JOI MCCLAIN : 1965 GENDER: FEMALE VISIT DATE: 11/22/2020 DISCHARGE DATE: 11/22/201622 VISIT LOCKED DATE TIME: PHYSICIAN: STELLA ASHRAF MD PHYSICIAN PAGER NO: ACTIVE RESOURCE: STELLA ASHRAF MD REASON FOR APPOINTMENT 1. RIGHT GREATER TROCHANTER OF THE FEMUR BURSAL INJECTION HISTORY OF PRESENT ILLNESS GENERAL: -. FALL RISK SCREENING: SCREENING :ONE FALL WITHOUT INJURY IN THE PAST YEAR PAIN SCREENING: PATIENT HAS A COMPLAINT OF ACUTE OR CHRONIC PAIN :YES LOCATION OF PAIN:LOW BACK, LEFT HIP, RIGHT HIP INTENSITY OF PAIN (SCALE OF 1 TO 10):8 WHAT DOES YOUR PAIN FEEL LIKE:ACHING, BURNING, SHARP, STABBING, THROBBING, SHOOTING DURATION:CONTINOUS, CONSTANT PAIN IS INCREASED BY:ACTIVITIES PAIN IS DECREASED BY:USE OF PAIN MEDICATIONS TREATMENT/MEDICATIONS USED TO MANAGE PAIN:OPIOIDS LEVEL OF RELIEF FROM PAIN TREATMENTS IN THE PAST:25% PAIN HAS INTERFERED WITH THE FOLLOWING:BATHING/DRESSING, WALKING ABILITY, HOUSEWORK, SLEEP, TRANSPORTATION, TOILETING NURSING NOTE: -. PAIN CENTER INTAKE QUESTIONS: DO YOU HAVE A HISTORY OF MRSA? :NO DO YOU TAKE A BLOOD THINNERS? :NO DO YOU HAVE ANY BLEEDING DISORDERS? :NO ANY NEW NUMBNESS OR WEAKNESS IN YOUR LEGS OR ARMS? :YES LEGS, NOT NEW ANY PACEMAKER,DEFIBRILLATOR, OR DORSAL COLUMN STIMULATOR? :NO DO YOU HAVE ANY RASHES OR OPEN SORES? :NO ARE YOU ALLERGIC TO IV DYE? :NO ARE YOU DIABETIC? :NO ANY NEW PROBLEMS WITH YOUR MEDICATIONS? :NO HAVE YOU RECEIVED A VACCINE IN THE PAST 30 DAYS? :NO DO YOU PLAN TO RECEIVE A VACCINE IN THE NEXT 21 DAYS? :NO DO YOU TAKE ANY IMMUNOSUPPRESSIVE MEDICATIONS? :NO ANY HISTORY OF SEIZURES? :NO ANY HISTORY OF CARDIAC ISSUES OR EVENTS? :NO DO YOU HAVE SLEEP APNEA? :NO ANY RECENT HEAD INJURY? :NO DO YOU HAVE ANY NEW INFECTIONS? :NO IS THERE A CHANCE YOU COULD BE ? :NO ARE YOU BREAST FEEDING? :NO WHEN DID YOU LAST EAT? : -1999 WHEN DID YOU LAST DRINK? : -11-22-20 08 WHAT DID YOU LAST DRINK? : -DIET PEPSI NAME OF PERSON DRIVING YOU HOME? : SAMIA, DO YOU HAVE ANY OTHER QUESTIONS OR CONCERNS? : -DENIES CURRENT MEDICATIONS TAKING ZOFRAN 4MG TABLET 2 TABLETS ORALLY BID PRN TAKING OMEPRAZOLE 40MG CAPSULE DELAYED RELEASE TAKE ONE CAPSULE BY MOUTH DAILY TAKING ERGOCALCIFEROL [id number] UNIT CAPSULE 1 CAPSULE ORALLY ONCE A WEEK TAKING IMITREX 50 MG TABLET 1 TABLET NEEDED ONE TIME, MAY REPEAT IN 2 HOURS IF HEADACHE STILL PRESENT, MDD 2 ORALLY DIRECTED TAKING CYMBALTA 60 MG CAPSULE DELAYED RELEASE PARTICLES 1 CAPSULE ORALLY ONCE A DAY TAKING MORPHINE SULFATE 15 MG TABLET 1 TAB ORALLY Q6H PRN MDD4, NOTES: 11/22/20 0600 TAKING TRAZODONE HCL 50 MG TABLET 1 TABLET AT BEDTIME ORALLY ONCE A DAY, NOTES: 11/20/20 2100 TAKING BACLOFEN 20 MG TABLET 1 TABLET ORALLY 1 Q6H QID, NOTES: 11/21/20 0900 TAKING MOVANTIK 25 MG TABLET 1 TABLET IN THE MORNING ORALLY ONCE A DAY TAKING GABAPENTIN 600 MG TABLET 1 ORALLY 1 IN AM,1 MIDDAY AND 2 AT HS, NOTES: 11/22/2020 TAKING CELECOXIB 200 MG CAPSULE TAKE ONE CAPSULE BY MOUTH EVERY DAY WITH FOOD ORAL DAILY NOT-TAKING POTASSIUM CHLORIDE MARY ANNE ER 20 MEQ TABLET EXTENDED RELEASE 1 TABLET WITH FOOD ORALLY ONCE A DAY NOT-TAKING CLONIDINE HCL 0.1 MG TABLET 1 TABLET AT BEDTIME ORALLY ONCE A DAY NOT-TAKING LASIX 20 MG TABLET 1 TABLET ORALLY ONCE A DAY NOT-TAKING LINZESS 145MCG CAPSULE 1 CAPSULE ORALLY ONCE A DAY NEEDED NOT-TAKING ATORVASTATIN CALCIUM 10MG TABLET 1 TABLET ORALLY ONCE A DAY MEDICATION LIST REVIEWED AND RECONCILED WITH THE PATIENT PAST MEDICAL HISTORY DEPRESSION HYPERTENSION HYPERLIPIDEMIA INSOMNIA IBS REFLUX CHRONIC BACK PAIN ATHRITIS IN BACK BILATERAL HIP BURSITIS, RIGHT > LEFT NOCTURIA COPD-UNSPECIFIED PUMONARY NODULES-FOLLOWED BY [facility] DILATED COMMON BILE DUCT FROM 1.2 CM ON DECEMBER 2014 STUDY TO 1.7 CM 10/21/2019 PER PT MASS ON ADRENAL GLAND ALLERGIES PENICILLIN (FOR ALLERGIES USE ONLY): HIVES - ALLERGY ANCEF: HIVES - ALLERGY STRAWBERRIES/MANGOS: SEVERE HIVES, ITCHING - ALLERGY - ONSET DATE 01/10/2020 SOCIAL HISTORY GENERAL: TOBACCO USE ARE YOU A:CURRENT SMOKER ARE YOU INTERESTED IN QUITTING?NOT READY TO QUIT COUNSELED THE PATIENT ON SMOKING EFFECTS, EDUCATION [id number]/02/2021 HOW MANY CIGARETTES A DAY DO YOU SMOKE?6-10 HOW SOON AFTER YOU WAKE UP DO YOU SMOKE YOUR FIRST CIGARETTE?6-30 MIN HOW OFTEN DO YOU SMOKE CIGARETTES?EVERY DAY PATIENT COUNSELED ON THE DANGERS OF TOBACCO USE AND URGED TO QUIT:07/24/2020 ADDITIONAL FINDINGS: TOBACCO USER NONE SMOKING CESSATION INFORMATION GIVEN07/24/2020 VAPORNO E-CIGARETTENO LATEX QUESTIONNAIRE LATEX ALLERGY : HAVE YOU EVER DEVELOPED ANY TYPE OF REACTION AFTER HANDLING LATEX PRODUCTS SUCH RUBBER GLOVES, CONDOMS, DIAPHRAGMS, BALLOONS, SOCKS, OR UNDERWEAR?NO LATEX ALLERGY : HAVE YOU EVER DEVELOPED ANY TYPE OF REACTION DURING OR AFTER DENTAL APPOINTMENT, VAGINAL/RECTAL EXAMINATION, SURGICAL PROCEDURE, OR ANY OTHER EXPOSURE?NO LATEX RISK : HAVE YOU EVER HAD ANY DIFFICULTY BREATHING OR HIVES AFTER EATING OR HANDLING ANY FRUITS, OR VEGETABLES; SUCH KIWI, BANANAS, STONE FRUITS, OR CHESTNUTSYES - PLEASE INDICATE : MANGOS LATEX RISK : DO YOU HAVE A PREVIOUS PERSONAL HISTORY OF MORE THAN NINE SURGERIES, SPINA BIFIDA, OR REPEATED CATHERIZATIONS? NO LATEX RISK : ARE YOU FREQUENTLY EXPOSED TO LATEX PRODUCTS IN YOUR OCCUPATION?NO DATE ASKED : 10/23/2020 BMI CARE GOAL FOLLOW-UP ABOVE NORMAL BMI FOLLOW-UPDIETARY MANAGEMENT EDUCATION, GUIDANCE, AND COUNSELING ALCOHOL SCREENING DID YOU HAVE A DRINK CONTAINING ALCOHOL IN THE PAST YEAR?NO POINTS0 INTERPRETATIONNEGATIVE RECREATIONAL DRUG USE DRUG USE?NO CAFFEINE CAFFEINE USE?YES COFFEE,DIET PEPSI SEXUAL HX HAD SEX IN THE LAST 12 MONTHS (VAGINAL, ORAL, OR ANAL)?YES WITHMEN ONLY HAVE YOU EVER HAD AN STD?NO HIV / HEP-C SCREENING HIV TEST OFFERED TO PATIENT:YES DATE OFFERED:09/06/2019 CONSENT ON FILE TEST ACCEPTED:NO HEP-C TEST OFFERED TO PATIENT:YES DATE OFFERED:09/06/2019 CONSENT ON FILE REASON:PATIENT DECLINED TEST ACCEPTED:NO REASON:PATIENT DECLINED BROCHURE PROVIDED TO PATIENTNO ROMAN CATHOLIC [id number] [employer]THODOX LANGUAGE [place]RAELI. EDUCATION LEVEL OF EDUCATION:FINISHED HIGH SCHOOL 11TH GRADE LEARNING BARRIERS / SPECIAL NEEDS CHANGE FROM LAST VISIT?NO BARRIERS TO LEARNING?NO HEARING IMPAIRED?NO VISION IMPAIRED?YES COGNITIVELY IMPAIRED?NO :CORRECTIVE LENSES READING READINESS TO LEARN?YES LEARNING PREFERENCES?NO LEARNING CAPABILITIES PRESENT?YES EMOTIONAL BARRIERS?NO SPECIAL DEVICES?NO CORRECTIONAL PROGRAM SPECIALIST NEEDED?NO DOMESTIC VIOLENCE DO YOU FEEL SAFE IN YOUR ENVIRONMENT?YES DIET: REGULAR. MARITAL STATUS: . - PFS REFERRAL NEEDED?NO CLERGY REFERRAL NEEDED?NO PUBLIC HEALTH REFERRAL NEEDED?NO WAS THE PROVIDER NOTIFIED OF ANY PERTINENT INFO?YES N/A HAS THE PATIENT BEEN EDUCATED REGARDING HIS/HER PLAN OF CARE?YES HAS THE PATIENT BEEN EDUCATED REGARDING PAIN, THE RISK FOR PAIN, THE IMPORTANCE OF EFFECTIVE PAIN MANAGEMENT, AND THE PAIN ASSESSMENT PROCESS?YES ADVANCE DIRECTIVE ADVANCE DIRECTIVE DISCUSSED WITH PATIENT:YES PT DOES NOT HAVE ANY ADVANCED DIRECTIVES AND SHE DECLINES INFORMATION ON HCP AT THIS TIME. THIS PATIENT LIVES AT HOME WITH HER AND GRAND-DAUGHTER, (WHOM SHE INTENDS TO ADOPT). SHE SLEEPS OKAY ONLY. SHE FRACTURED RIGHT ELBOW, RIGHT CHEEK FRACTURE, AND LEFT WRIST IN PAST. NO HISTORY OF AN EATING DISORDER. SHE DENIES HISTORY OF PHYSICAL/SEXUAL ABUSE. SHE WEARS SEAT BELTS. SHE IS CURRENT WITH IMMUNIZATIONS AND TETANUS. SHE IS UP TO DATE WITH DENTAL AND EYE EXAMINATIONS. SHE TAKES NO VITAMINS OR CALCIUM. VITAL SIGNS WT 140.6 LBS, HT 63 IN, BMI 24.90 INDEX, BP 125/58 MM HG, HR 83 /MIN, RR 18 /MIN, TEMP 97.2 F, OXYGEN SAT % 93%, SAFE IN ENV? (Y/N) YES, NA INITIALS AW 1420, REVIEWED BY: EFREN. EXAMINATION GENERAL EXAMINATION: THE PATIENT IS ALERT, ORIENTED TIMES THREE AND COOPERATIVE. LUNGS ARE CLEAR TO AUSCULTATION. HEART SHOWS REGULAR RHYTHM, NO MURMURS AND NO GALLOPS. ASSESSMENTS GREATER TROCHANTERIC BURSITIS - M70.60 (PRIMARY) TREATMENT GREATER TROCHANTERIC BURSITIS LAB: MEDICATION: (PAIN) ZOFRAN ODT TAB 4MG DISSOLVE ON TONGUE (ONDANSETRON) (ORDERED FOR 11/22/2020) MATT SEPULVEDA 11/22/2020 2:44:01 PM > VERIFIED ANTON WILLARD 11/22/2020 2:46:44 PM > ADMINISTERED LAB: MEDICATION: OXYCODONE HCL TAB 10MG ORALLY (ORDERED FOR 11/22/2020) MATT SEPULVEDA 11/22/2020 2:44:23 PM > VERIFIED ANTON WILLARD 11/22/2020 2:47:06 PM > ADMINISTERED LAB: MEDICATION: VALIUM TAB 10MG ORALLY (DIAZEPAM) (ORDERED FOR 11/22/2020) MATT SEPULVEDA 11/22/2020 2:44:40 PM > VERIFIED ANTON WILLARD 11/22/2020 2:47:35 PM > ADMINISTERED [facility] FLUORO GUIDANCE (PAIN)[id number] COMPLETION OF PROCEDURAL VISIT WHEN MEETS CRITERIAEDMUNDOCARISAANTON 11/22/2020 4:28:08 PM > CRITERIA MET OTHERS NOTES: PAT DONE 11/21/20 Joanna SEPULVEDA SHIPPING RECEIVING CLERK. PROCEDURES PAIN NURSING RECORD PROCEDURE IN ROOM 1505, PHYSICIAN IN ROOM 1523, START 1527, FINISH 1542, PHYSICIAN OUT OF ROOM 1542, OUT OF ROOM 1551, ECG OTHER TRIGEMINY - DR ASHRAF AWARE, PATIENT SHIELDED YES, SAFETY STRAP YES, PREP CHLOROPREP BY Joanna SEPULVEDA RN, DRESSING TEGADERM BY DR ASHRAF LOC: 1. ALERT, ORIENTED, ANTON WILLARD 11/22/2020 1526PM > RESP: 1. REGULAR, NO DYSPNEA, , ANTON WILLARD [id number] PM > COLOR: 1. PINK, 1526 11/22/20 SKIN: 1. WARM, DRY 1526 11/22/20 POSITION: 3. LATERAL 1526 11/22/20 VITALS: 1508 - 70, 91%, 137/77 1515 - 72, 92%, 147/66 1530 - 75, 88%, 131/44 1623- EXIT VITALS 74, 93%, 131/76, R 18 NOTES Tip WILLARD RN COMPLETION OF PROCEDURE APPOINTMENT: POST PAIN 0, DRESSING SITE DRY AND INTACT, IV N/A, GAIT STEADY, TEACHING COMPLETED, PATIENT ACKNOWLEDGES UNDERSTANDING YES PT V/U OF TEACHING, PROCEDURE APPOINTMENT COMPLETED AT 1600 : HEART RYTHM TRIGEMINY. DR ASHRAF AWARE. PATIENT DENIES S/S OF CP, NAUSEA, SOB OR OTHER CARDIAC SX. CLEARANCE NOTE FOUND IN PATIENTS CHART FROM [facility] STATING PATIENT IS CLEARED FOR FUTURE PROCEDURES INCLUDING VISIT WITH DR BRANTLEY ON 01/19/2020 TO ALSO PROCEED WITH PROCEDURES REGARDING HEART RYTHM. TBRADLEYRN PRE PROCEDURE DIAGNOSIS BURSITIS AT THE RIGHT GREATER TROCHANTER OF THE FEMUR POST PROCEDURE DIAGNOSIS BURSITIS AT THE RIGHT GREATER TROCHANTER OF THE FEMUR PROCEDURE INJECTION AT THE BURSA OF THE RIGHT GREATER TROCHANTER OF THE FEMUR UNDER FLUOROSCOPIC GUIDANCE. SURGEON DR. STELLA ASHRAF WING MAILER MACHINE OPERATOR NONE ANESTHESIA LOCAL PRE PROCEDURE NOTE THE PATIENT HAS A HISTORY OF RIGHT HIP PAIN. I EVALUATED THE PATIENT AND REVIEWED THE CHART. WE BOTH AGREE ON INJECTING OVER THE BURSA OF THE RIGHT GREATER TROCHANTER OF THE FEMUR. I DISCUSSED THE RISKS, BENEFITS AND ALTERNATIVES ASSOCIATED WITH THIS PROCEDURE. THE PATIENT WOULD LIKE TO PROCEED AND GAVE CONSENT TO PERFORM THE PROCEDURE. THE PATIENT DENIES UNEXPLAINABLE WEIGHT LOSS, FEVERS, CHILLS, OR CHANGES IN URINARY OR BOWEL CONTROL. PATIENT IS COVID-19 NEGATIVE. DESCRIPTION OF PROCEDURE AFTER CONSENT WAS TAKEN, THE PATIENT WAS BROUGHT TO THE PROCEDURE ROOM AND PLACED IN THE LEFT LATERAL DECUBITUS POSITION. THE RIGHT HIP AREA WAS CLEANED WITH CHLORAPREP SOLUTION AND DRAPED ASEPTICALLY. THE PROCEDURE WAS DONE UNDER STERILE CONDITIONS. A TIMEOUT WAS PERFORMED WHERE THE CONSENTED SITE WAS VERIFIED WITH EVERYONE IN THE ROOM. UNDER FLUOROSCOPIC GUIDANCE, TARGET WAS SELECTED AT THE RIGHT GREATER TROCHANTER OF THE FEMUR. I CONFIRMED AGAIN THE SITE OF THE TARGET. LIDOCAINE WAS USED TO NUMB THE SKIN AND THE SUBCUTANEOUS TISSUE BELOW IT. SPINAL NEEDLE, 22-GAUGE, WAS ADVANCED UNDER FLUOROSCOPIC GUIDANCE AND FOLLOWING PATIENT FEEDBACK UNTIL THE TARGET WAS TOUCHED. POSITION OF THE NEEDLE WAS VERIFIED WITH AP AND LATERAL VIEWS. AFTER PROPER POSITION OF THE NEEDLE WAS ACHIEVED, ISOVUE-M 30%, 1.0 ML, WAS INJECTED SHOWING ADEQUATE SPREAD OF THE DYE. KENALOG 40 MG WAS INJECTED. THEN, A SOLUTION OF 30 ML OF BUPIVACAINE 0.125% WAS USED TO FLUSH THE SITE. THE MEDICATIONS WERE VERIFIED WITH THE NURSE. THERE WAS NO EVIDENCE OF BLOOD OR PARESTHESIA. THE PATIENT WAS SENT TO THE RECOVERY ROOM. THE PATIENT WAS MOVING THE EXTREMITIES AND DOING WELL. THERE WERE NO COMPLICATIONS DURING THE PROCEDURE. ESTIMATED BLOOD LOSS WAS LESS THAN 5 ML. FLUOROSCOPIC TIME WAS 18 SECONDS. POST PROCEDURE NOTE THE PATIENT WAS SHOWING TODAY 1 PVC EVERY 3 BEATS. VITAL SIGNS WERE STABLE. I WOULD LIKE TO DISCUSS THIS WITH THE PRIMARY CARE. THE PATIENT WAS EVALUATED BY DR. BRANTLEY ON 01/19/2020. I WANT TO SEE IF THIS IS THE SAME PROBLEM BEFORE. I PUT A COPY OF THE WAVES IN THE PATIENT'S CHART. I DISCUSSED THE PROCEDURE WITH THE PATIENT. WE WILL SEE THE PATIENT BACK IN SEVERAL WEEKS FOR FOLLOWUP. I AM LOOKING FOR LONG-LASTING PAIN RELIEF WITH THIS INTERVENTION. I, SARA GONSALVES, DOCUMENTED THE ABOVE INFORMATION ACTING A SCRIBE FOR DR. ASHRAF. I HAVE REVIEWED THE ABOVE DOCUMENT, WRITTEN BY SARA GONSALVES, GEOGRAPHIC INFORMATION SYSTEMS ENGINEER, AND I VERIFY THAT IT IS ACCURATE PROCEDURE CODES 51524 DRAIN/INJ JOINT/BURSA W/O US, MODIFIERS: RT [id number] NEEDLE LOCALIZATION BY XRAY, MODIFIERS: 26 DISPOSITION & COMMUNICATION FOLLOW UP FOLLOW UP WITH SECURITY INTELLIGENCE ANALYST (REASON: POST RIGHT GREATER TROCHANTER OF THE FEMUR BURSAL INJECTION ) ELECTRONICALLY SIGNED BY STELLA ASHRAF MD, ON 11/23/2020 AT 03:03 PM EST DISCLAIMER : THIS IS A VISIT SUMMARY EXTRACTED FROM THE [facility] CHART. IT IS NOT A COPY OF THE [facility] PROGRESS NOTE. LAURA
== END ==
LOC: M PAIN 14:00
PROVIDERS: ATTEND Anesthesiology
DX: M70.60 Trochanteric bursitis, unspecified hip (principal); G47.00 Insomnia, unspecified; K21.9 Gastro-esophageal reflux disease without esophagitis; J44.9 Chronic obstructive pulmonary disease, unspecified; F17.210 Nicotine dependence, cigarettes, uncomplicated; Z86.59 Personal history of other mental and behavioral disorders; Z88.0 Allergy status to penicillin; Z88.1 Allergy status to other antibiotic agents; Z91.018 Allergy to other foods; Z79.891 Long term (current) use of opiate analgesic; Z79.899 Other long term (current) drug therapy
CPT/HCPCS: 20610; 77002; J3301; Q0162; Q9967

== ENCOUNTER → 2021-01-30 | Outpatient (CLI) | payer OTHER ==
[~2021-01-30] MED LIST changes: -BUPIVACAINE HCL 0.25% 30ML VIAL As Ordered ONE; -ISOVUE-M 300 61% 15ML VIAL As Ordered ONE; -LIDOCAINE 1% SDV 30ML VIAL As Ordered ONE; -ONDANSETRON 4 MG ORAL DISINTEGRATING TAB As Ordered ONE; -TRIAMCINOLONE ACETONIDE SUSP 40 MG/ML VIAL (J3301) As Ordered ONE; -diazePAM 5MG TABLET As Ordered ONE; -oxyCODONE 5MG TAB As Ordered ONE
--- NOTE | 2021-02-01 00:11 | ECWPNPC ---
PATIENT NAME: JOI MCCLAIN : 1965 GENDER: FEMALE VISIT DATE: 01/30/2021 DISCHARGE DATE: 01/30/21 1603 VISIT LOCKED DATE TIME: PHYSICIAN: REUBEN CRONIN PHYSICIAN PAGER NO: ACTIVE RESOURCE: REUBEN CRONIN REASON FOR APPOINTMENT 1. POST RIGHT GREATER TROCHANTERIC BURSAL INJECTION HISTORY OF PRESENT ILLNESS DEPRESSION SCREENING: PHQ-9 LITTLE INTEREST OR PLEASURE IN DOING THINGSSEVERAL DAYS FEELING DOWN, DEPRESSED, OR HOPELESSNEARLY EVERY DAY TROUBLE FALLING OR STAYING ASLEEP, OR SLEEPING TOO MUCHSEVERAL DAYS FEELING TIRED OR HAVING LITTLE ENERGYNEARLY EVERY DAY POOR APPETITE OR OVEREATING NEARLY EVERY DAY FEELING BAD ABOUT YOURSELF-OR THAT YOU ARE A FAILURE OR HAVE LET YOURSELF OR YOUR FAMILY DOWN NOT AT ALL TROUBLE CONCENTRATING ON THINGS, SUCH READING THE NEWSPAPER OR WATCHING TELEVISION NOT AT ALL MOVING OR SPEAKING SO SLOWLY THAT OTHER PEOPLE COULD HAVE NOTICED. OR THE OPPOSITE- BEING SO FIDGETY OR RESTLESS THAT YOU HAVE BEEN MOVING AROUND A LOT MORE THAN USUALNOT AT ALL THOUGHTS THAT YOU WOULD BE BETTER OFF , OR OF HURTING YOURSELF IN SOME WAY?NOT AT ALL TOTAL SCORE:11 INTERPRETATIONMODERATE DEPRESSION PHQ-2 (2015 EDITION) LITTLE INTEREST OR PLEASURE IN DOING THINGS?SEVERAL DAYS FEELING DOWN, DEPRESSED, OR HOPELESS?NEARLY EVERY DAY TOTAL SCORE4 55-YEAR-OLD FEMALE IN FOR CHRONIC PAIN FOLLOW-UP. SHE RATES HER PAIN CURRENTLY AT A 9 OUT OF 10 AND DESCRIBES IT ACHING, BURNING, CONTINUOUS, SHARP, STABBING, TENDER, THROBBING, SORE, AND SHOOTING. PATIENT FEELS HER MEDICATIONS ARE NO LONGER COVERING HER PAIN. GENERAL: -. FALL RISK SCREENING: SCREENING : NO FALLS REPORTED IN THE LAST YEAR. PAIN SCREENING: PATIENT HAS A COMPLAINT OF ACUTE OR CHRONIC PAIN :YES LOCATION OF PAIN:UPPER BACK, MID BACK, LOW BACK INTENSITY OF PAIN (SCALE OF 1 TO 10):9 WHAT DOES YOUR PAIN FEEL LIKE:ACHING, BURNING, CONTINOUS, SHARP, STABBING, TENDER, THROBBING, SORE, SHOOTING DURATION:CONTINOUS, AWAKENS FROM SLEEP PAIN IS INCREASED BY:ACTIVITIES, PROLONGED STANDING PAIN IS DECREASED BY:OTHERS HEAT NURSING NOTE: -. PAIN CENTER INTAKE QUESTIONS: DO YOU HAVE A HISTORY OF MRSA? :NO DO YOU TAKE A BLOOD THINNERS? :NO DO YOU HAVE ANY BLEEDING DISORDERS? :NO ANY NEW NUMBNESS OR WEAKNESS IN YOUR LEGS OR ARMS? :YES BILATERAL LEGS AND FEET NUMBNESS ANY PACEMAKER,DEFIBRILLATOR, OR DORSAL COLUMN STIMULATOR? :NO DO YOU HAVE ANY RASHES OR OPEN SORES? :NO ARE YOU ALLERGIC TO IV DYE? :NO ARE YOU DIABETIC? :NO ANY NEW PROBLEMS WITH YOUR MEDICATIONS? :NO HAVE YOU RECEIVED A VACCINE IN THE PAST 30 DAYS? :NO DO YOU PLAN TO RECEIVE A VACCINE IN THE NEXT 21 DAYS? :NO DO YOU NEED ANY PRESCRIPTION? :YES MORPHINE AND BACLOFEN DO YOU TAKE ANY IMMUNOSUPPRESSIVE MEDICATIONS? :NO DO YOU HAVE ANY KIDNEY OR LIVER DISEASE? :NO IS THERE A CHANCE YOU COULD BE ? :NO ARE YOU BREAST FEEDING? :NO CURRENT MEDICATIONS TAKING OMEPRAZOLE 40MG CAPSULE DELAYED RELEASE TAKE ONE CAPSULE BY MOUTH DAILY TAKING ERGOCALCIFEROL [id number] UNIT CAPSULE 1 CAPSULE ORALLY ONCE A WEEK TAKING IMITREX 50 MG TABLET 1 TABLET NEEDED ONE TIME, MAY REPEAT IN 2 HOURS IF HEADACHE STILL PRESENT, MDD 2 ORALLY DIRECTED TAKING CYMBALTA 60 MG CAPSULE DELAYED RELEASE PARTICLES 1 CAPSULE ORALLY ONCE A DAY TAKING CELECOXIB 200 MG CAPSULE TAKE ONE CAPSULE BY MOUTH EVERY DAY WITH FOOD ORAL DAILY TAKING GABAPENTIN 600 MG TABLET 1 ORALLY 1 IN AM,1 MIDDAY AND 2 AT HS, NOTES: 11/22/2020 TAKING MORPHINE SULFATE 15 MG TABLET 1 TAB ORALLY Q6H PRN MDD4, NOTES: 11/22/20 0600 TAKING MOVANTIK 25 MG TABLET 1 TABLET IN THE MORNING ORALLY ONCE A DAY TAKING BACLOFEN 20 MG TABLET 1 TABLET ORALLY 1 Q6H QID, NOTES: 11/21/20 0900 TAKING ZOFRAN 4MG TABLET 2 TABLETS ORALLY BID PRN TAKING ATORVASTATIN CALCIUM 10MG TABLET 1 TABLET ORALLY ONCE A DAY TAKING HYDROXYZINE HCL 25 MG TABLET 1-2 TABLETS NEEDED ORALLY EVERY 8 HRS TAKING TRAZODONE HCL 100 MG TABLET 1 TABLET AT BEDTIME ORALLY ONCE A DAY UNKNOWN LINZESS 145MCG CAPSULE 1 CAPSULE ORALLY ONCE A DAY NEEDED MEDICATION LIST REVIEWED AND RECONCILED WITH THE PATIENT PAST MEDICAL HISTORY DEPRESSION HYPERTENSION HYPERLIPIDEMIA INSOMNIA IBS REFLUX CHRONIC BACK PAIN ATHRITIS IN BACK BILATERAL HIP BURSITIS, RIGHT > LEFT NOCTURIA COPD-UNSPECIFIED PUMONARY NODULES-FOLLOWED BY [facility] DILATED COMMON BILE DUCT FROM 1.2 CM ON DECEMBER 2014 STUDY TO 1.7 CM 10/21/2019 PER PT MASS ON ADRENAL GLAND ALLERGIES PENICILLIN (FOR ALLERGIES USE ONLY): HIVES - ALLERGY ANCEF: HIVES - ALLERGY STRAWBERRIES/MANGOS: SEVERE HIVES, ITCHING - ALLERGY - ONSET DATE 01/10/2020 SOCIAL HISTORY GENERAL: TOBACCO USE ARE YOU A:CURRENT SMOKER HOW OFTEN DO YOU SMOKE CIGARETTES?EVERY DAY HOW SOON AFTER YOU WAKE UP DO YOU SMOKE YOUR FIRST CIGARETTE?6-30 MIN HOW MANY CIGARETTES A DAY DO YOU SMOKE?6-10 ARE YOU INTERESTED IN QUITTING?NOT READY TO QUIT ADDITIONAL FINDINGS: TOBACCO USER NONE PATIENT COUNSELED ON THE DANGERS OF TOBACCO USE AND URGED TO QUIT:07/24/2020 COUNSELED THE PATIENT ON SMOKING EFFECTS, EDUCATION [id number]/02/2021 VAPORNO E-CIGARETTENO SMOKING CESSATION INFORMATION GIVEN07/24/2020 LATEX QUESTIONNAIRE LATEX ALLERGY : HAVE YOU EVER DEVELOPED ANY TYPE OF REACTION AFTER HANDLING LATEX PRODUCTS SUCH RUBBER GLOVES, CONDOMS, DIAPHRAGMS, BALLOONS, SOCKS, OR UNDERWEAR?NO LATEX ALLERGY : HAVE YOU EVER DEVELOPED ANY TYPE OF REACTION DURING OR AFTER DENTAL APPOINTMENT, VAGINAL/RECTAL EXAMINATION, SURGICAL PROCEDURE, OR ANY OTHER EXPOSURE?NO LATEX RISK : HAVE YOU EVER HAD ANY DIFFICULTY BREATHING OR HIVES AFTER EATING OR HANDLING ANY FRUITS, OR VEGETABLES; SUCH KIWI, BANANAS, STONE FRUITS, OR CHESTNUTSYES - PLEASE INDICATE : MANGOS LATEX RISK : DO YOU HAVE A PREVIOUS PERSONAL HISTORY OF MORE THAN NINE SURGERIES, SPINA BIFIDA, OR REPEATED CATHERIZATIONS? NO LATEX RISK : ARE YOU FREQUENTLY EXPOSED TO LATEX PRODUCTS IN YOUR OCCUPATION?NO DATE ASKED : 01/30/2021 BMI CARE GOAL FOLLOW-UP ABOVE NORMAL BMI FOLLOW-UPDIETARY MANAGEMENT EDUCATION, GUIDANCE, AND COUNSELING ALCOHOL SCREENING DID YOU HAVE A DRINK CONTAINING ALCOHOL IN THE PAST YEAR?NO POINTS0 INTERPRETATIONNEGATIVE RECREATIONAL DRUG USE DRUG USE?NO CAFFEINE CAFFEINE USE?YES COFFEE,DIET PEPSI SEXUAL HX HAD SEX IN THE LAST 12 MONTHS (VAGINAL, ORAL, OR ANAL)?YES WITHMEN ONLY HAVE YOU EVER HAD AN STD?NO HIV / HEP-C SCREENING HIV TEST OFFERED TO PATIENT:YES DATE OFFERED:09/06/2019 CONSENT ON FILE TEST ACCEPTED:NO HEP-C TEST OFFERED TO PATIENT:YES DATE OFFERED:09/06/2019 CONSENT ON FILE REASON:PATIENT DECLINED TEST ACCEPTED:NO REASON:PATIENT DECLINED BROCHURE PROVIDED TO PATIENTNO WORSHIP [id number] WORSHIP LANGUAGE KYRGYZ. EDUCATION LEVEL OF EDUCATION:FINISHED HIGH SCHOOL 11TH GRADE LEARNING BARRIERS / SPECIAL NEEDS CHANGE FROM LAST VISIT?NO BARRIERS TO LEARNING?NO HEARING IMPAIRED?NO VISION IMPAIRED?YES :CORRECTIVE LENSES READING COGNITIVELY IMPAIRED?NO READINESS TO LEARN?YES LEARNING PREFERENCES?NO LEARNING CAPABILITIES PRESENT?YES EMOTIONAL BARRIERS?NO SPECIAL DEVICES?NO COMMERCIAL CREDIT OFFICER NEEDED?NO DOMESTIC VIOLENCE DO YOU FEEL SAFE IN YOUR ENVIRONMENT?YES DIET: REGULAR. MARITAL STATUS: . - PFS REFERRAL NEEDED?NO CLERGY REFERRAL NEEDED?NO PUBLIC HEALTH REFERRAL NEEDED?NO WAS THE PROVIDER NOTIFIED OF ANY PERTINENT INFO?YES N/A HAS THE PATIENT BEEN EDUCATED REGARDING HIS/HER PLAN OF CARE?YES HAS THE PATIENT BEEN EDUCATED REGARDING PAIN, THE RISK FOR PAIN, THE IMPORTANCE OF EFFECTIVE PAIN MANAGEMENT, AND THE PAIN ASSESSMENT PROCESS?YES ADVANCE DIRECTIVE ADVANCE DIRECTIVE DISCUSSED WITH PATIENT:YES PT DOES NOT HAVE ANY ADVANCED DIRECTIVES AND SHE DECLINES INFORMATION ON HCP AT THIS TIME. THIS PATIENT LIVES AT HOME WITH HER AND GRAND-DAUGHTER, (WHOM SHE INTENDS TO ADOPT). SHE SLEEPS OKAY ONLY. SHE FRACTURED RIGHT ELBOW, RIGHT CHEEK FRACTURE, AND LEFT WRIST IN PAST. NO HISTORY OF AN EATING DISORDER. SHE DENIES HISTORY OF PHYSICAL/SEXUAL ABUSE. SHE WEARS SEAT BELTS. SHE IS CURRENT WITH IMMUNIZATIONS AND TETANUS. SHE IS UP TO DATE WITH DENTAL AND EYE EXAMINATIONS. SHE TAKES NO VITAMINS OR CALCIUM. REVIEW OF SYSTEMS CONSTITUTIONAL: ANY RECENT FEVER NO . CHILLS NO . WEIGHT CHANGE OF UNKNOWN REASONS NO . GASTROENTEROLOGY: NEW UNEXPLAINABLE CHANGES IN BOWEL CONTROL NO . CONSTIPATION NO . GENITOURINARY: ANY NEW CHANGE IN BLADDER CONTROL? NO . NEUROLOGY: NEW ONSET DIZZINESS OR NEUROLOGICAL CHANGES NOT MENTIONED NO . NEW NUMBNESS OR PAIN PATTERNS NOT MENTIONED AND PERTINENT TO TODAY'S VISIT NO . CARDIOLOGY: NEW CHEST PRESSURE NO . PATIENT DENIES NO . RESPIRATORY: UNEXPLAINABLE COUGH NO . NEW SHORTNESS OF BREATH NO . VITAL SIGNS WT 137.2 LBS, HT 63 IN, BMI 24.30 INDEX, BP 122/61 MM HG, HR 93 /MIN, RR 18 /MIN, TEMP 97.3 F, OXYGEN SAT % 96%, SAFE IN ENV? (Y/N) YES, NA INITIALS AW 1459, REVIEWED BY: TYLER MIRANDA MA. EXAMINATION GENERAL EXAMINATION: GENERALNO ACUTE DISTRESS, WELL NOURISHED AND HYDRATED. PSYCHAPPROPRIATE MOOD AND AFFECT . LUNGS:CLEAR TO AUSCULTATION BILATERALLY, NO WHEEZES, RHONCHI, RALES. HEART:NO MURMURS, REGULAR RATE AND RHYTHM. ASSESSMENTS OTHER CHRONIC PAIN - G89.29 (PRIMARY) SENIOR CARE (CURRENT) USE OF OPIATE ANALGESIC - Z79.891 INTERVERTEBRAL DISC DISORDERS WITH RADICULOPATHY, LUMBOSACRAL REGION - M51.17 TREATMENT OTHER CHRONIC PAIN PAIN PROCEDURE LOGDATE OF PROCEDURE11/22/2020ROCEDURE:RIGHT GREATER TROCHANTER OF THE FEMUR BURSAL INJECTIONAMOUNT OF PRE SEDATEZOFRAN 4MG, OXYCODONE 10MG, VALIUM 10MGRESULT:PRE-10 POST 0-310 X 3-4 WEEKS MEDICATION: OXYCODONE HCL TAB 10MG ORALLY (ORDERED FOR 02/07/2021) MEDICATION: VALIUM TAB 10MG ORALLY (DIAZEPAM) (ORDERED FOR 02/07/2021) NOTES: 55-YEAR-OLD FEMALE IN FOR CHRONIC PAIN FOLLOW-UP. GIVEN PRESENTING SYMPTOMS AND RESULTS PHYSICAL EXAMINATION RECOMMENDED INCREASING MORPHINE TO 20 MG 3 TIMES A DAY AND A LUMBAR EPIDURAL STEROID INJECTION WITH POST PROCEDURAL FOLLOW-UP. PATIENT HAS EXPRESSED UNDERSTANDING OF AND WAS IN AGREEMENT WITH TREATMENT PLAN. GIVEN TIME TO ASK QUESTIONS AND EXPRESS CONCERNS. , ISTOP REGISTRY REVIEWED AND DEMONSTRATES COMPLLIANCE. (REF # [id number] ) BRINGS IN MEDICATIONS WHICH IS APPROPRIATE FOR WHAT WAS DISPENSED. RECENT URINE TOXICOLOGY REVIEWED. NO UNAUTHORIZED MEDICATIONS. NO ILLICIT SUBSTANCES AND PRESCRIBED MEDICATIONS WERE PRESENT. CLINICAL NOTES: PROVIDER NOTIFIED OF PHQ9. INFORMATION PRINTED AND GIVEN TO PROVIDER FOR PATIENT. BENNETT MIRANDA MA. GRAIN BUYER (CURRENT) USE OF OPIATE ANALGESIC LAB: URINE TEST GROUP BENNETT MIRANDA 01/30/2021 3:55:29 PM > LAST DOSE: GABAPENTIN 01/30/2021; MORPHINE 01/30/2021; MOVANTIK 01/30/2021; BACLOFEN 01/29/2021; HYDROXYZINE 01/29/2021; TRAZADONE 01/29/2021 PROCEDURE CODES FA211 ESTABILISHED PATIENT [facility] FACILITY CHARGE DISPOSITION & COMMUNICATION FOLLOW UP POST PROCEDURE (REASON: LUMBAR EPIDURAL STEROID INJECTION ) ELECTRONICALLY SIGNED BY MERI ZHENG ON 01/31/2021 AT 01:01 PM EDT DISCLAIMER : THIS IS A VISIT SUMMARY EXTRACTED FROM THE [facility] CHART. IT IS NOT A COPY OF THE [facility] PROGRESS NOTE. MTDD
== END ==
LOC: M PAIN 14:45
PROVIDERS: ATTEND Family Medicine
DX: M51.17 Intervertebral disc disorders with radiculopathy, lumbosacral region (principal); G89.29 Other chronic pain; G47.00 Insomnia, unspecified; K21.9 Gastro-esophageal reflux disease without esophagitis; J44.9 Chronic obstructive pulmonary disease, unspecified; F17.210 Nicotine dependence, cigarettes, uncomplicated; Z86.59 Personal history of other mental and behavioral disorders; Z88.0 Allergy status to penicillin; Z88.1 Allergy status to other antibiotic agents; Z91.018 Allergy to other foods; Z79.891 Long term (current) use of opiate analgesic; Z79.899 Other long term (current) drug therapy

== ENCOUNTER → 2021-02-03 | Outpatient (CLI) | payer OTHER | LOC: M LABSMTC 11:53 | PROVIDERS: ATTEND Anesthesiology | DX: Z01.812 Encounter for preprocedural laboratory examination (principal); Z20.828 Contact with and (suspected) exposure to other viral communicable diseases ==

== ENCOUNTER → 2021-02-08 | Outpatient (CLI) | payer OTHER ==
[~2021-02-08] MED LIST changes: +ISOVUE-M 300 61% 15ML VIAL As Ordered ONE; +LIDOCAINE 1% SDV 30ML VIAL As Ordered ONE; +ONDANSETRON 4 MG ORAL DISINTEGRATING TAB As Ordered ONE; +diazePAM 5MG TABLET As Ordered ONE; +methylPREDNISolone SUSP 40MG/ML 1ML VIAL (DEPO MEDROL) As Ordered ONE; +oxyCODONE 5MG TAB As Ordered ONE
--- NOTE | 2021-02-08 13:52 | REP ---
INDICATION: LUMBAR EPIDURAL STEROID INJECTION. COMPARISON: None. TECHNIQUE: Three views. 12.0 seconds of fluoroscopy time is reported. FINDINGS: A sequence of 3 last image hold fluoroscopically obtained spot radiograph(s) of the lumbar spine document(s) needle position(s) and contrast injection associated with injection procedure. IMPRESSION: Procedural imaging. <Electronically signed by Rafael Garcia > 02/08/21 1441
--- NOTE | 2021-02-14 00:57 | ECWPNPC ---
PATIENT NAME: JOI MCCLAIN : 1965 GENDER: FEMALE VISIT DATE: 02/08/2021 DISCHARGE DATE: 02/08/21 1602 VISIT LOCKED DATE TIME: PHYSICIAN: STELLA ASHRAF MD PHYSICIAN PAGER NO: ACTIVE RESOURCE: STELLA ASHRAF MD REASON FOR APPOINTMENT 1. LUMBAR EPIDURAL STEROID INJECTION HISTORY OF PRESENT ILLNESS GENERAL: -. FALL RISK SCREENING: SCREENING : NO FALLS REPORTED IN THE LAST YEAR. PAIN SCREENING: PATIENT HAS A COMPLAINT OF ACUTE OR CHRONIC PAIN :YES LOCATION OF PAIN:MID BACK, LOW BACK INTENSITY OF PAIN (SCALE OF 1 TO 10):10 WHAT DOES YOUR PAIN FEEL LIKE:ACHING, STABBING, SHOOTING DURATION:CONTINOUS, CONSTANT, STEADY, ALL DAY PAIN IS INCREASED BY:OTHERS LAUNDRY, DISHES, HOUSEWORK PAIN IS DECREASED BY:OTHERS HEAT NURSING NOTE: -. PAIN CENTER INTAKE QUESTIONS: DO YOU HAVE A HISTORY OF MRSA? :NO DO YOU TAKE A BLOOD THINNERS? :NO DO YOU HAVE ANY BLEEDING DISORDERS? :NO ANY NEW NUMBNESS OR WEAKNESS IN YOUR LEGS OR ARMS? :NO ANY PACEMAKER,DEFIBRILLATOR, OR DORSAL COLUMN STIMULATOR? :NO DO YOU HAVE ANY RASHES OR OPEN SORES? :NO ARE YOU ALLERGIC TO IV DYE? :NO ARE YOU DIABETIC? :NO ANY NEW PROBLEMS WITH YOUR MEDICATIONS? :NO HAVE YOU RECEIVED A VACCINE IN THE PAST 30 DAYS? :NO DO YOU PLAN TO RECEIVE A VACCINE IN THE NEXT 21 DAYS? :NO DO YOU TAKE ANY IMMUNOSUPPRESSIVE MEDICATIONS? :NO ANY HISTORY OF SEIZURES? :NO ANY HISTORY OF CARDIAC ISSUES OR EVENTS? :YES HX OF RACHEL WHILE IN PROCEDURE HERE. PATIENT STATES SHE SAW A RESTAUR[employer] B[employer]ENDER AND NOTHING CAME FROM THAT APPOINTMENT DO YOU HAVE ANY KIDNEY OR LIVER DISEASE? :NO DO YOU HAVE SLEEP APNEA? :NO ANY RECENT HEAD INJURY? :NO DO YOU HAVE ANY NEW INFECTIONS? :NO IS THERE A CHANCE YOU COULD BE ? :NO ARE YOU BREAST FEEDING? :NO WHEN DID YOU LAST EAT? : 02/07/21 1900 WHEN DID YOU LAST DRINK? : 0345 WHAT DID YOU LAST DRINK? : WATER NAME OF PERSON DRIVING YOU HOME? : -SAMIA DO YOU HAVE ANY OTHER QUESTIONS OR CONCERNS? : NO CURRENT MEDICATIONS TAKING OMEPRAZOLE 40MG CAPSULE DELAYED RELEASE TAKE ONE CAPSULE BY MOUTH DAILY TAKING ERGOCALCIFEROL [id number] UNIT CAPSULE 1 CAPSULE ORALLY ONCE A WEEK TAKING IMITREX 50 MG TABLET 1 TABLET NEEDED ONE TIME, MAY REPEAT IN 2 HOURS IF HEADACHE STILL PRESENT, MDD 2 ORALLY DIRECTED TAKING CYMBALTA 60 MG CAPSULE DELAYED RELEASE PARTICLES 1 CAPSULE ORALLY ONCE A DAY TAKING CELECOXIB 200 MG CAPSULE TAKE ONE CAPSULE BY MOUTH EVERY DAY WITH FOOD ORAL DAILY TAKING GABAPENTIN 600 MG TABLET 1 ORALLY 1 IN AM,1 MIDDAY AND 2 AT HS, NOTES: 02/07/212099 TAKING MOVANTIK 25 MG TABLET 1 TABLET IN THE MORNING ORALLY ONCE A DAY TAKING BACLOFEN 20 MG TABLET 1 TABLET ORALLY 1 Q6H QID, NOTES: 02/07/212099 TAKING ZOFRAN 4MG TABLET 2 TABLETS ORALLY BID PRN TAKING ATORVASTATIN CALCIUM 10MG TABLET 1 TABLET ORALLY ONCE A DAY TAKING HYDROXYZINE HCL 25 MG TABLET 1-2 TABLETS NEEDED ORALLY EVERY 8 HRS, NOTES: 02/07/21 TAKING TRAZODONE HCL 100 MG TABLET 1 TABLET AT BEDTIME ORALLY ONCE A DAY, NOTES: 02/07/212099 TAKING MORPHINE SULFATE 15 MG TABLET 1 TAB ORALLY Q6H PRN MDD4, NOTES: 0345 UNKNOWN LINZESS 145MCG CAPSULE 1 CAPSULE ORALLY ONCE A DAY NEEDED MEDICATION LIST REVIEWED AND RECONCILED WITH THE PATIENT PAST MEDICAL HISTORY DEPRESSION HYPERTENSION HYPERLIPIDEMIA INSOMNIA IBS REFLUX CHRONIC BACK PAIN ATHRITIS IN BACK BILATERAL HIP BURSITIS, RIGHT > LEFT NOCTURIA COPD-UNSPECIFIED PUMONARY NODULES-FOLLOWED BY [facility] DILATED COMMON BILE DUCT FROM 1.2 CM ON DECEMBER 2014 STUDY TO 1.7 CM 10/21/2019 PER PT MASS ON ADRENAL GLAND ALLERGIES PENICILLIN (FOR ALLERGIES USE ONLY): HIVES - ALLERGY ANCEF: HIVES - ALLERGY STRAWBERRIES/MANGOS: SEVERE HIVES, ITCHING - ALLERGY - ONSET DATE 01/10/2020 SOCIAL HISTORY GENERAL: TOBACCO USE ARE YOU A:CURRENT SMOKER ARE YOU INTERESTED IN QUITTING?NOT READY TO QUIT COUNSELED THE PATIENT ON SMOKING EFFECTS, EDUCATION QXCLYIGH18/22/2021 HOW MANY CIGARETTES A DAY DO YOU SMOKE?6-10 HOW SOON AFTER YOU WAKE UP DO YOU SMOKE YOUR FIRST CIGARETTE?6-30 MIN HOW OFTEN DO YOU SMOKE CIGARETTES?EVERY DAY PATIENT COUNSELED ON THE DANGERS OF TOBACCO USE AND URGED TO QUIT:02/08/2021 ADDITIONAL FINDINGS: TOBACCO USER NONE SMOKING CESSATION INFORMATION GIVEN02/08/2021 VAPORNO E-CIGARETTENO LATEX QUESTIONNAIRE LATEX ALLERGY : HAVE YOU EVER DEVELOPED ANY TYPE OF REACTION AFTER HANDLING LATEX PRODUCTS SUCH RUBBER GLOVES, CONDOMS, DIAPHRAGMS, BALLOONS, SOCKS, OR UNDERWEAR?NO LATEX ALLERGY : HAVE YOU EVER DEVELOPED ANY TYPE OF REACTION DURING OR AFTER DENTAL APPOINTMENT, VAGINAL/RECTAL EXAMINATION, SURGICAL PROCEDURE, OR ANY OTHER EXPOSURE?NO DATE ASKED : 01/30/2021 LATEX RISK : HAVE YOU EVER HAD ANY DIFFICULTY BREATHING OR HIVES AFTER EATING OR HANDLING ANY FRUITS, OR VEGETABLES; SUCH KIWI, BANANAS, STONE FRUITS, OR CHESTNUTSYES - PLEASE INDICATE : MANGOS LATEX RISK : DO YOU HAVE A PREVIOUS PERSONAL HISTORY OF MORE THAN NINE SURGERIES, SPINA BIFIDA, OR REPEATED CATHERIZATIONS? NO LATEX RISK : ARE YOU FREQUENTLY EXPOSED TO LATEX PRODUCTS IN YOUR OCCUPATION?NO ALCOHOL USE: NO. BMI CARE GOAL FOLLOW-UP ABOVE NORMAL BMI FOLLOW-UPDIETARY MANAGEMENT EDUCATION, GUIDANCE, AND COUNSELING ALCOHOL SCREENING DID YOU HAVE A DRINK CONTAINING ALCOHOL IN THE PAST YEAR?NO POINTS0 INTERPRETATIONNEGATIVE RECREATIONAL DRUG USE DRUG USE?NO CAFFEINE CAFFEINE USE?YES COFFEE,DIET PEPSI SEXUAL HX HAD SEX IN THE LAST 12 MONTHS (VAGINAL, ORAL, OR ANAL)?YES WITHMEN ONLY HAVE YOU EVER HAD AN STD?NO HIV / HEP-C SCREENING HIV TEST OFFERED TO PATIENT:YES DATE OFFERED:09/06/2019 CONSENT ON FILE TEST ACCEPTED:NO HEP-C TEST OFFERED TO PATIENT:YES DATE OFFERED:09/06/2019 CONSENT ON FILE REASON:PATIENT DECLINED TEST ACCEPTED:NO REASON:PATIENT DECLINED BROCHURE PROVIDED TO PATIENTNO SABIANIST [id number] PENTECOSTALISM LANGUAGE [place]AN. EDUCATION LEVEL OF EDUCATION:FINISHED HIGH SCHOOL 11TH GRADE LEARNING BARRIERS / SPECIAL NEEDS CHANGE FROM LAST VISIT?NO BARRIERS TO LEARNING?NO HEARING IMPAIRED?NO VISION IMPAIRED?YES :CORRECTIVE LENSES READING COGNITIVELY IMPAIRED?NO READINESS TO LEARN?YES LEARNING PREFERENCES?NO LEARNING CAPABILITIES PRESENT?YES EMOTIONAL BARRIERS?NO SPECIAL DEVICES?NO SYSTEM DEVELOPMENT ENGINEER NEEDED?NO DOMESTIC VIOLENCE DO YOU FEEL SAFE IN YOUR ENVIRONMENT?YES DIET: REGULAR. MARITAL STATUS: . - PFS REFERRAL NEEDED?NO CLERGY REFERRAL NEEDED?NO PUBLIC HEALTH REFERRAL NEEDED?NO WAS THE PROVIDER NOTIFIED OF ANY PERTINENT INFO?YES N/A HAS THE PATIENT BEEN EDUCATED REGARDING HIS/HER PLAN OF CARE?YES HAS THE PATIENT BEEN EDUCATED REGARDING PAIN, THE RISK FOR PAIN, THE IMPORTANCE OF EFFECTIVE PAIN MANAGEMENT, AND THE PAIN ASSESSMENT PROCESS?YES ADVANCE DIRECTIVE ADVANCE DIRECTIVE DISCUSSED WITH PATIENT:YES PT DOES NOT HAVE ANY ADVANCED DIRECTIVES AND SHE DECLINES INFORMATION ON HCP AT THIS TIME. THIS PATIENT LIVES AT HOME WITH HER AND GRAND-DAUGHTER, (WHOM SHE INTENDS TO ADOPT). SHE SLEEPS OKAY ONLY. SHE FRACTURED RIGHT ELBOW, RIGHT CHEEK FRACTURE, AND LEFT WRIST IN PAST. NO HISTORY OF AN EATING DISORDER. SHE DENIES HISTORY OF PHYSICAL/SEXUAL ABUSE. SHE WEARS SEAT BELTS. SHE IS CURRENT WITH IMMUNIZATIONS AND TETANUS. SHE IS UP TO DATE WITH DENTAL AND EYE EXAMINATIONS. SHE TAKES NO VITAMINS OR CALCIUM. VITAL SIGNS WT 138.6 LBS, HT 63 IN, BMI 24.55 INDEX, BP 129/60 MM HG, HR 73 /MIN, RR 18 /MIN, TEMP 98.0 F, OXYGEN SAT % 96%, SAFE IN ENV? (Y/N) YES, NA INITIALS AW 1205, REVIEWED BY: APA. MELYSSA RN. EXAMINATION GENERAL: A HISTORY AND PHYSICAL EXAM ON THE PATIENT WAS DONE ON 01/30/2021 (DATE OF ORIGINAL ASSESSMENT) IN PREPARATION OF SURGERY/PROCEDURE. I HAVE NOW REASSESSED THIS PATIENT'S HEALTH STATUS AND PERFORMED AN UPDATED EXAM TODAY. ALL CHANGES IN THE PATIENT'S HISTORY, PHYSICAL EXAM, PRE-EXISTING CONDITONS, AND INDICATIONS/CONTRAINDICATIONS TO THE PLANNED PROCEDURE AND ANESTHESIA ARE DOCUMENTED AND EVALUATED BELOW. I ATTEST TO THE ADEQUACY AND APPROPRIATENESS OF MY ASSESSMENT, AND CONFIRM THE NECESSITY FOR THE PLANNED PROCEDURE. THE PATIENT IS ALERT, ORIENTED TIMES THREE AND COOPERATIVE. LUNGS ARE CLEAR TO AUSCULTATION. HEART SHOWS REGULAR RHYTHM, NO MURMURS AND NO GALLOPS. ASSESSMENTS INTERVERTEBRAL DISC DISORDERS WITH RADICULOPATHY, LUMBOSACRAL REGION - M51.17 (PRIMARY) TREATMENT INTERVERTEBRAL DISC DISORDERS WITH RADICULOPATHY, LUMBOSACRAL REGION LAB: FINGERSTICK BLOOD SUGAR (ORDERED FOR 02/08/2021) PETRAS,CORETTA R 02/08/2021 2:31:02 PM > FSBS: 75 OXYGEN AT 2 LITERS PER NASAL CANNULAPETRAS,CORETTA R 02/08/2021 1:26:58 PM > 02 ON 1304, 02 OFF 1323 PETRAS,CORETTA R 02/08/2021 3:18:29 PM > 02 RE-APPLIED PER Babita BISHOP RN @ 1340 PETRAS,CORETTA R 02/08/2021 3:22:06 PM > 1518 02 REMOVED PETRGLENISCORETTA R 02/08/2021 3:32:05 PM > 1523 02 REAPPLIED @ 1L PETRASCORETTA R 02/08/2021 3:46:36 PM > 02 REMOVED @ 1527 IV LACTATED RINGER'S WIDE OPENDILEONAMUKESH PEREZL 02/08/2021 1:56:07 PM > GIVE 500 ML PETRPAULIE GALVINCORETTA R 02/08/2021 2:07:42 PM > 20G PLACED INTO LEFT AC PER ORDER. BLOOD RETURN PRESENT. LR STARTED WIDE OPEN PER ORDER MELYSSACORETTA R 02/08/2021 3:04:15 PM > 500 ML LR INFUSED PETRAS,CORETTA R 02/08/2021 4:11:05 PM > SL REMOVED PER ORDER. BLEEDING CONTROLLED, DSD APPLIED. COMPLETION OF PROCEDURAL VISIT WHEN MEETS CRITERIAPEPAULIE PEÑAGAIL R 02/08/2021 4:11:30 PM > CRITERIA MET MED: PAIN ZOFRAN ODT TAB 4MG DISSOLVE ON TONGUE ONDANSETRONJAMIL BISHOP RN 02/08/2021 12:21:52 PM > VERIFIED. MELYSSA,CORETTA R 02/08/2021 12:26:08 PM > ADMINISTERED MEDICATION: VALIUM TAB 10MG ORALLY (DIAZEPAM)JAMIL BISHOP RN 02/08/2021 12:22:04 PM > VERIFIED. MELYSSA,CORETTA R 02/08/2021 12:26:31 PM > ADMINISTERED MEDICATION: OXYCODONE HCL TAB 10MG ORALLYJAMIL BISHOP RN 02/08/2021 12:22:17 PM > VERIFIED. MELYSSACORETTA R 02/08/2021 12:26:47 PM > ADMINISTERED NOTES: PATIENT'S 02 SAT UNABLE TO STAY ABOVE 85% DURING PROCEDURE. ORDER RECIEVED TO PLACE 2L NASAL CANNULA ON PATIENT. PATIENT DROWSY AND DRIFTING OFF TO SLEEP THROUGHOUT PROCEDURE BUT ABLE TO ANSWER QUESTIONS AND RESPONDS TO VERBAL STIMULI AND LIGHT TOUCH. PATIENT CONTINUALLY MONITORED WHILE IN PROCEDURE ROOM. ONCE PROCEDURE ENDED, PATIENT BROUGHT TO RECOVERY AREA VIA STRETCHER AND IMMEDIATELY PLACED BACK ON MONITOR. PATIENT REMAINING DROWSY AND DRIFTING TO SLEEP BUT CONTINUING TO RESPOND TO VERBAL STIMULI. PATIENT CONTINUED APPEARING INCREASINGLY DROWSY AND REQUIRING 02 SUPPORT. 2L NC PLACED BACK ON PATIENT PER DR. ASHRAF. PER DR ASHRAF, SALINE LOCK TO BE PLACED AND 500ML LR TO BE INFUSED. SL PLACED AND LR INITIATED. VITAL SIGNS Q5MIN. PATIENT KEPT SUPINE, SITTING UP KEEPING AIRWAY OPEN. PER DR. ASHRAF, KEEP PATIENT FOR OBSERVATION AND ALLOW HER TO REST WITH MONITORS IN PLACE AND WHILE FLUID INFUSES. CALLED AND SPOKE WITH PATIENT'S SAMIA AND UPDATED HIM ON THAT PATIENT WILL NEED TO STAY FOR A LITTLE WHILE LONGER FOR FURTHER MONITORING. PATIENT ASKING TO USE BATHROOM, PATIENT AMBULATED WITH 2 STANDBY ASSIST TO BATHROOM AND PORTABLE 02 TANK ON 2L. RESUMED Q5MIN VITALS FOLLOWING AMBULATION. PATIENT ABLE TO WEAN OFF 02 SLOWLY. ALERT & ORIENTED X3, PATIENT ABLE TO DRESS BY HERSELF AND CALLED HER TO HAVE HIM PICK HER UP. . PROCEDURES PAIN NURSING RECORD PROCEDURE IN ROOM 1245, PHYSICIAN IN ROOM 1305, START 1311, FINISH 1313, PHYSICIAN OUT OF ROOM 1315, OUT OF ROOM 1323, ECG NORMAL SINUS, PATIENT SHIELDED YES, SAFETY STRAP YES, PREP BETADINE ANiall RAGSDALE RN, DRESSING TEGADERM DR. ASHRAF LOC: PETRAS,CORETTA R 02/08/2021 1:07:49 PM > , 2. DROWSY, RESPONDS APPROPRIATELY, 2. DROWSY, RESPONDS APPROPRIATELY, PETRAS,CORETTA R 02/08/2021 1:11:49 PM > RESP: PETRAS,CORETTA R 02/08/2021 1:07:52 PM > , 1. REGULAR, NO DYSPNEA, PETRAS,CORETTA R 02/08/2021 1:11:55 PM > , 1. REGULAR, NO DYSPNEA COLOR: PETRAS,CORETTA R 02/08/2021 1:07:56 PM > , 1. PINK, PETRAS,CORETTA R 02/08/2021 1:11:59 PM > , 1. PINK SKIN: PETRAS,CORETTA R 02/08/2021 1:07:59 PM > , 1. WARM, DRY PETRAS,CORETTA R 02/08/2021 1:12:13 PM > , 1. WARM, DRY POSITION: PETRAS,CORETTA R 02/08/2021 1:08:02 PM > , 1. PRONE , PETRAS,CORETTA R 02/08/2021 1:12:19 PM > , 1. PRONE VITALS: CHASE SHEARER 02/08/2021 12:43:36 PM > HR 72 02 91% BP 119/60 PETRAS,CORETTA R 02/08/2021 12:55:50 PM > 132/78, 68, 16, 85% PETRAS,CORETTA R 02/08/2021 1:00:03 PM > 122/74, 68, 16, 83% PETRAS,CORETTA R 02/08/2021 1:04:34 PM > 124/79, 65, 16, 96% ON 2L NC PER ORDER PETRAS,CORETTA R 02/08/2021 1:14:01 PM > 125/75, 68, 16, 100% 2L NC PETRAS,CORETTA R 02/08/2021 1:19:30 PM > 116/76, 66, 16, 100% 2L NC PETRAS,CORETTA R 02/08/2021 1:31:12 PM > 124/53, 66, 16, 92% ON RA PETRAS,CORETTA R 02/08/2021 2:00:00 PM > 106/62, 68, 16, 97% ON 2L PETRAS,CORETTA R 02/08/2021 2:08:19 PM > 109/60, 66, 14, 95% ON 2L PETRAS,CORETTA R 02/08/2021 2:12:46 PM > 102/61, 69, 14, 102/55, 67, 14, 97% ON 2L PETRAS,CORETTA R 02/08/2021 2:19:36 PM > 108/55, 68, 16, 99% ON 2L NC PETRAS,CORETTA R 02/08/2021 2:25:27 PM > 107/55, 65, 16, 97% ON 2L NC PETRAS,CORETTA R 02/08/2021 2:28:07 PM > 106/55, 65, 16, 95% ON 2L NC PETRAS,CORETTA R 02/08/2021 2:33:00 PM > 107/56, 65, 16, 96% ON 2L NC PETRAS,CORETTA R 02/08/2021 2:39:29 PM > 106/57, 65, 16, 96% ON 2L NC PETRAS,CORETTA R 02/08/2021 2:42:58 PM > 110/58, 67, 16, 98% ON 2L NC PETRAS,CORETTA R 02/08/2021 2:48:19 PM > 117/57, 68, 16, 97% ON 2L NC PETRAS,CORETTA R 02/08/2021 3:05:32 PM > 119/60, 68, 16, 91% ON 1L NC PETRAS,CORETTA R 02/08/2021 3:08:55 PM > 120/62, 60, 16, 93% ON 1L NC PETRAS,CORETTA R 02/08/2021 3:13:44 PM >146/62, 60, 16, 96% ON 1L NC PETRAS,CORETTA R 02/08/2021 3:18:52 PM > 124/60, 63, 16, 98% ON RA PETRAS,CORETTA R 02/08/2021 3:23:48 PM > 126/55, 75, 16, 91% 1L NC PETRAS,CORETTA R 02/08/2021 3:27:42 PM > 134/68, 61, 16, 93% ON 1L NC PETRAS,CORETTA R 02/08/2021 3:32:53 PM >122/62, 63, 16, 94% ON RA NOTES PETRAS,CORETTA R 02/08/2021 1:34:35 PM > REPORT HANDED TO Babita BISHOP RN AT THIS TIME PETRAS,CORETTA R 02/08/2021 1:55:32 PM > RESUMED CARE AT THIS TIME COMPLETION OF PROCEDURE APPOINTMENT: POST PAIN 0, DRESSING SITE DRY AND INTACT, IV DISCONTINUED, SITE CLEAR, CATHETER INTACT, GAIT WHEELCHAIR, TEACHING COMPLETED, PATIENT ACKNOWLEDGES UNDERSTANDING YES EDUCATION PROVIDED TO PATIENT. PATIENT WHEELED DOWN TO CAR TO SAMIA VIA WHEELCHAIR. DIRECTIONS GIVEN TO SAMIA WELL. DIRECTED TO SEEK EMRGENCY CARE IF PATIENT SHOWS SIGNS OF DISTRESS., PROCEDURE APPOINTMENT COMPLETED AT 1601 BY: Alfredo RAGSDALE RN PRE PROCEDURE DIAGNOSIS LUMBOSACRAL DISC DISORDER WITH RADICULOPATHY POST PROCEDURE DIAGNOSIS LUMBOSACRAL DISC DISORDER WITH RADICULOPATHY PROCEDURE LUMBAR EPIDURAL STEROID INJECTION UNDER FLUOROSCOPIC GUIDANCE SURGEON DR. STELLA ASHRAF DETENTION ATTENDANT NONE ANESTHESIA LOCAL PRE PROCEDURE NOTE THE PATIENT HAS A HISTORY OF CHRONIC LOW BACK PAIN. I EVALUATED THE PATIENT AND REVIEWED THE CHART. I WENT OVER THE RISKS, ALTERNATIVES, AND BENEFITS ASSOCIATED WITH THIS PROCEDURE. THE PATIENT WOULD LIKE TO PROCEED AND GIVE CONSENT TO PERFORMED THE PROCEDURE. THE PATIENT DENIES UNEXPLAINABLE WEIGHT LOSS, FEVER, CHILLS, OR NEW CHANGES IN URINARY OR BOWEL CONTROL. THE PATIENT IS COVID-19 NEGATIVE DESCRIPTION OF PROCEDURE THE PATIENT WAS BROUGHT TO THE PROCEDURE ROOM AND PLACED IN THE PRONE POSITION. THE LUMBOSACRAL AREA WAS CLEANED WITH BETADINE SOLUTION AND DRAPED ASEPTICALLY. THE PROCEDURE WAS DONE UNDER STERILE CONDITIONS. A TIMEOUT WAS PERFORMED WHERE THE CONSENTED SITE WAS VERIFIED WITH EVERYONE IN THE ROOM. UNDER FLUOROSCOPIC GUIDANCE, THE TARGET POINT WAS SELECTED AT THE INTERLAMINAR LEVEL OF L5-S1. I CONFIRMED AGAIN THE SITE OF TARGET. LIDOCAINE WAS USED TO NUMB THE SKIN AND THE SUBCUTANEOUS TISSUE BELOW IT. EPIDURAL TUOHY NEEDLE, 17-GAUGE, WAS ADVANCED UNDER FLUOROSCOPIC GUIDANCE AND FOLLOWING PATIENT FEEDBACK UNTIL THE EPIDURAL SPACE WAS REACHED 6 CM DEEP INTO THE SKIN BY THE LOSS OF RESISTANCE TECHNIQUE. ISOVUE-M DYE 30%, 0.25 ML, WAS INJECTED SHOWING ADEQUATE SPREAD OF THE DYE. THEN, A SOLUTION OF 3 ML OF NORMAL SALINE WITH DEPO-MEDROL 40 MG WAS INJECTED SLOWLY FOLLOWING PATIENT FEEDBACK. THE MEDICATIONS WERE VERIFIED WITH THE NURSE. THERE WAS NO EVIDENCE OF BLOOD, PARESTHESIA OR CEREBROSPINAL FLUID DURING THE PROCEDURE. THE PATIENT WAS SENT TO THE RECOVERY ROOM. THE PATIENT WAS MOVING THE EXTREMITIES AND DOING WELL. THERE WERE NO COMPLICATIONS DURING THE PROCEDURE. ESTIMATED BLOOD LOSS WAS LESS THAN 5 ML. FLUOROSCOPY TIME WAS 12 SECONDS POST PROCEDURE NOTE THE PATIENT WAS EXTREMELY SLEEPY AFTER THE PROCEDURE. SHE SHOULD RECEIVE LESS PRESEDATE NEXT TIME. DEPENDING ON THE RESULTS, CONSIDER A LEFT TRANSFORAMINAL EPIDURAL STEROID INJECTION L4-L5, L5-S1 AND DEPENDING ON THE RESULTS OF THAT, WE CAN CONSIDER A DORSAL COLUMN STIMULATOR. THE PATIENT WILL BE SEEN IN A FOLLOW UP IN THE NEXT FEW WEEKS. I AM LOOKING FOR LONG LASTING RELIEF FOR THE PATIENT WITH THIS INTERVENTION. INSTRUCTIONS WERE GIVEN, QUESTIONS WERE ANSWERED, AND THE PATIENT EXPRESSED UNDERSTANDING AND AGREES WITH THE PLAN. I, SARA GONSALVES, DOCUMENTED THE ABOVE INFORMATION ACTING A SCRIBE FOR DR. ASHRAF. I HAVE REVIEWED THE ABOVE DOCUMENT, WRITTEN BY SARA GONSALVES, [employer], AND I VERIFY THAT IT IS [facility] FLUORO GUIDE SPINE INJECTION (PAIN)[id number] PROCEDURE CODES 08461 LUMBAR/SACRAL W/ IMAGING DISPOSITION & COMMUNICATION FOLLOW UP FOLLOW UP WITH PALS NURSE (REASON: POST LUMBAR EPIDURAL STEROID INJECTION) ELECTRONICALLY SIGNED BY STELLA ASHRAF MD, ON 02/13/2021 AT 11:48 AM EDT DISCLAIMER : THIS IS A VISIT SUMMARY EXTRACTED FROM THE [employer] CHART. IT IS NOT A COPY OF THE [employer] PROGRESS NOTE. LAURA
== END ==
LOC: M PAIN 11:40
PROVIDERS: ATTEND Anesthesiology
DX: M51.17 Intervertebral disc disorders with radiculopathy, lumbosacral region (principal); G47.00 Insomnia, unspecified; K21.9 Gastro-esophageal reflux disease without esophagitis; J44.9 Chronic obstructive pulmonary disease, unspecified; F17.210 Nicotine dependence, cigarettes, uncomplicated; Z86.59 Personal history of other mental and behavioral disorders; Z88.0 Allergy status to penicillin; Z88.1 Allergy status to other antibiotic agents; Z91.018 Allergy to other foods; Z79.891 Long term (current) use of opiate analgesic; Z79.899 Other long term (current) drug therapy
CPT/HCPCS: 62323; J1030; Q0162; Q9967

== ENCOUNTER → 2021-03-08 | Outpatient (CLI) | payer OTHER ==
[~2021-03-08] MED LIST changes: +GABA-283 PO; -GABA-845 PO; -ISOVUE-M 300 61% 15ML VIAL As Ordered ONE; -LIDOCAINE 1% SDV 30ML VIAL As Ordered ONE; -ONDANSETRON 4 MG ORAL DISINTEGRATING TAB As Ordered ONE; -diazePAM 5MG TABLET As Ordered ONE; -methylPREDNISolone SUSP 40MG/ML 1ML VIAL (DEPO MEDROL) As Ordered ONE; -oxyCODONE 5MG TAB As Ordered ONE
--- NOTE | 2021-03-13 01:42 | ECWPNPC ---
PATIENT NAME: JOI MCCLAIN : 1965 GENDER: FEMALE VISIT DATE: 03/08/2021 DISCHARGE DATE: 03/08/21 1542 VISIT LOCKED DATE TIME: PHYSICIAN: REUBEN CRONIN PHYSICIAN PAGER NO: ACTIVE RESOURCE: REUBEN CRONIN REASON FOR APPOINTMENT 1. POST LUMBAR EPIDURAL HISTORY OF PRESENT ILLNESS GENERAL: -55-YEAR-OLD FEMALE IN FOR POST LUMBAR EPIDURAL FOLLOW-UP. PATIENT FEELS THE PROCEDURE WAS UNSUCCESSFUL BUT DOES ADMIT TO A FALL STATUS POST PROCEDURE. SHE RATES HER PAIN CURRENTLY AT A 10 OUT OF 10 AND DESCRIBES IT ACHING, BURNING, AND CONTINUOUS. SHE FEELS HER MEDICATIONS ARE NO LONGER COVERING HER PAIN. FALL RISK SCREENING: SCREENING ONE FALL REPORTED IN THE LAST YEAR, 02/21/2021 WITH INJURY. PATIENT DID NOT SEEK IMMEDIATE MEDICAL TREATMENT.. PAIN SCREENING: PATIENT HAS A COMPLAINT OF ACUTE OR CHRONIC PAIN :YES LOCATION OF PAIN:LOW BACK INTENSITY OF PAIN (SCALE OF 1 TO 10):10 WHAT DOES YOUR PAIN FEEL LIKE:ACHING, BURNING, CONTINOUS, SHARP, STABBING, TENDER, THROBBING, SORE, SHOOTING DURATION:CONTINOUS, CONSTANT, AWAKENS FROM SLEEP PAIN IS INCREASED BY:ACTIVITIES, PROLONGED STANDING PAIN IS DECREASED BY:USE OF PAIN MEDICATIONS, SITTING, OTHERS LAYING DOWN WITH HEATING PAD HELPS THE MOST. NURSING NOTE: -. PAIN CENTER INTAKE QUESTIONS: DO YOU HAVE A HISTORY OF MRSA? :NO DO YOU TAKE A BLOOD THINNERS? :NO DO YOU HAVE ANY BLEEDING DISORDERS? :NO ANY NEW NUMBNESS OR WEAKNESS IN YOUR LEGS OR ARMS? :YES BILATERAL LEGS AND FEET NUMBNESS ANY PACEMAKER,DEFIBRILLATOR, OR DORSAL COLUMN STIMULATOR? :NO DO YOU HAVE ANY RASHES OR OPEN SORES? :NO ARE YOU ALLERGIC TO IV DYE? :NO ARE YOU DIABETIC? :NO ANY NEW PROBLEMS WITH YOUR MEDICATIONS? :NO HAVE YOU RECEIVED A VACCINE IN THE PAST 30 DAYS? :NO DO YOU PLAN TO RECEIVE A VACCINE IN THE NEXT 21 DAYS? :NO DO YOU NEED ANY PRESCRIPTION? :YES GABAPENTIN AND BACLOFEN DO YOU TAKE ANY IMMUNOSUPPRESSIVE MEDICATIONS? :NO DO YOU HAVE ANY KIDNEY OR LIVER DISEASE? :NO IS THERE A CHANCE YOU COULD BE ? :NO ARE YOU BREAST FEEDING? :NO CURRENT MEDICATIONS TAKING OMEPRAZOLE 40MG CAPSULE DELAYED RELEASE TAKE ONE CAPSULE BY MOUTH DAILY TAKING ERGOCALCIFEROL 15388 UNIT CAPSULE 1 CAPSULE ORALLY ONCE A WEEK TAKING IMITREX 50 MG TABLET 1 TABLET NEEDED ONE TIME, MAY REPEAT IN 2 HOURS IF HEADACHE STILL PRESENT, MDD 2 ORALLY DIRECTED TAKING CYMBALTA 60 MG CAPSULE DELAYED RELEASE PARTICLES 1 CAPSULE ORALLY ONCE A DAY TAKING GABAPENTIN 600 MG TABLET 1 ORALLY 1 IN AM,1 MIDDAY AND 2 AT HS TAKING BACLOFEN 20 MG TABLET 1 TABLET ORALLY 1 Q6H QID TAKING ZOFRAN 4MG TABLET 2 TABLETS ORALLY BID PRN TAKING ATORVASTATIN CALCIUM 10MG TABLET 1 TABLET ORALLY ONCE A DAY TAKING HYDROXYZINE HCL 25 MG TABLET 1-2 TABLETS NEEDED ORALLY EVERY 8 HRS, NOTES: 02/07/21. TAKES VERY RARELY DUE TO INCREASED SLEEPINESS TAKING TRAZODONE HCL 50 MG TABLET 1 TABLET AT BEDTIME ORALLY ONCE A DAY TAKING CELECOXIB 200 MG CAPSULE TAKE ONE CAPSULE BY MOUTH EVERY DAY WITH FOOD ORAL DAILY TAKING MOVANTIK 25 MG TABLET 1 TABLET IN THE MORNING ORALLY ONCE A DAY TAKING TRAZODONE HCL 100 MG TABLET 1 TABLET AT BEDTIME ORALLY ONCE A DAY TAKING MORPHINE SULFATE 15 MG TABLET 1 TAB ORALLY Q6H PRN MDD4 UNKNOWN LINZESS 145MCG CAPSULE 1 CAPSULE ORALLY ONCE A DAY NEEDED MEDICATION LIST REVIEWED AND RECONCILED WITH THE PATIENT PAST MEDICAL HISTORY DEPRESSION HYPERTENSION HYPERLIPIDEMIA INSOMNIA IBS REFLUX CHRONIC BACK PAIN ATHRITIS IN BACK BILATERAL HIP BURSITIS, RIGHT > LEFT NOCTURIA COPD-UNSPECIFIED PUMONARY NODULES-FOLLOWED BY [facility] DILATED COMMON BILE DUCT FROM 1.2 CM ON DECEMBER 2014 STUDY TO 1.7 CM 10/21/2019 PER PT MASS ON ADRENAL GLAND ALLERGIES PENICILLIN (FOR ALLERGIES USE ONLY): HIVES - ALLERGY ANCEF: HIVES - ALLERGY STRAWBERRIES/MANGOS: SEVERE HIVES, ITCHING - ALLERGY - ONSET DATE 01/10/2020 SOCIAL HISTORY GENERAL: TOBACCO USE ARE YOU A:CURRENT SMOKER ARE YOU INTERESTED IN QUITTING?NOT READY TO QUIT COUNSELED THE PATIENT ON SMOKING EFFECTS, EDUCATION [id number]/20/2021 HOW MANY CIGARETTES A DAY DO YOU SMOKE?6-10 HOW SOON AFTER YOU WAKE UP DO YOU SMOKE YOUR FIRST CIGARETTE?6-30 MIN HOW OFTEN DO YOU SMOKE CIGARETTES?EVERY DAY PATIENT COUNSELED ON THE DANGERS OF TOBACCO USE AND URGED TO QUIT:02/08/2021 ADDITIONAL FINDINGS: TOBACCO USER NONE SMOKING CESSATION INFORMATION GIVEN02/08/2021 VAPORNO E-CIGARETTENO LATEX QUESTIONNAIRE LATEX ALLERGY : HAVE YOU EVER DEVELOPED ANY TYPE OF REACTION AFTER HANDLING LATEX PRODUCTS SUCH RUBBER GLOVES, CONDOMS, DIAPHRAGMS, BALLOONS, SOCKS, OR UNDERWEAR?NO LATEX ALLERGY : HAVE YOU EVER DEVELOPED ANY TYPE OF REACTION DURING OR AFTER DENTAL APPOINTMENT, VAGINAL/RECTAL EXAMINATION, SURGICAL PROCEDURE, OR ANY OTHER EXPOSURE?NO LATEX RISK : HAVE YOU EVER HAD ANY DIFFICULTY BREATHING OR HIVES AFTER EATING OR HANDLING ANY FRUITS, OR VEGETABLES; SUCH KIWI, BANANAS, STONE FRUITS, OR CHESTNUTSYES - PLEASE INDICATE : MANGOS LATEX RISK : DO YOU HAVE A PREVIOUS PERSONAL HISTORY OF MORE THAN NINE SURGERIES, SPINA BIFIDA, OR REPEATED CATHERIZATIONS? NO LATEX RISK : ARE YOU FREQUENTLY EXPOSED TO LATEX PRODUCTS IN YOUR OCCUPATION?NO DATE ASKED : 03/08/2021 ALCOHOL USE: NO. BMI CARE GOAL FOLLOW-UP ABOVE NORMAL BMI FOLLOW-UPDIETARY MANAGEMENT EDUCATION, GUIDANCE, AND COUNSELING ALCOHOL SCREENING DID YOU HAVE A DRINK CONTAINING ALCOHOL IN THE PAST YEAR?NO POINTS0 INTERPRETATIONNEGATIVE RECREATIONAL DRUG USE DRUG USE?NO CAFFEINE CAFFEINE USE?YES COFFEE,DIET PEPSI SEXUAL HX HAD SEX IN THE LAST 12 MONTHS (VAGINAL, ORAL, OR ANAL)?YES WITHMEN ONLY HAVE YOU EVER HAD AN STD?NO HIV / HEP-C SCREENING HIV TEST OFFERED TO PATIENT:YES DATE OFFERED:09/06/2019 CONSENT ON FILE TEST ACCEPTED:NO HEP-C TEST OFFERED TO PATIENT:YES DATE OFFERED:09/06/2019 CONSENT ON FILE REASON:PATIENT DECLINED TEST ACCEPTED:NO REASON:PATIENT DECLINED BROCHURE PROVIDED TO PATIENTNO CONFUCIANISM [id number] SABIANISM LANGUAGE UKRAINIAN. EDUCATION LEVEL OF EDUCATION:FINISHED HIGH SCHOOL 11TH GRADE LEARNING BARRIERS / SPECIAL NEEDS CHANGE FROM LAST VISIT?NO BARRIERS TO LEARNING?NO HEARING IMPAIRED?NO VISION IMPAIRED?YES :CORRECTIVE LENSES READING COGNITIVELY IMPAIRED?NO READINESS TO LEARN?YES LEARNING PREFERENCES?NO LEARNING CAPABILITIES PRESENT?YES EMOTIONAL BARRIERS?NO SPECIAL DEVICES?NO NON LINEAR EDITOR NEEDED?NO DOMESTIC VIOLENCE DO YOU FEEL SAFE IN YOUR ENVIRONMENT?YES DIET: REGULAR. MARITAL STATUS: . - PFS REFERRAL NEEDED?NO CLERGY REFERRAL NEEDED?NO PUBLIC HEALTH REFERRAL NEEDED?NO WAS THE PROVIDER NOTIFIED OF ANY PERTINENT INFO?YES N/A HAS THE PATIENT BEEN EDUCATED REGARDING HIS/HER PLAN OF CARE?YES HAS THE PATIENT BEEN EDUCATED REGARDING PAIN, THE RISK FOR PAIN, THE IMPORTANCE OF EFFECTIVE PAIN MANAGEMENT, AND THE PAIN ASSESSMENT PROCESS?YES ADVANCE DIRECTIVE ADVANCE DIRECTIVE DISCUSSED WITH PATIENT:YES PT DOES NOT HAVE ANY ADVANCED DIRECTIVES AND SHE DECLINES INFORMATION ON HCP AT THIS TIME. THIS PATIENT LIVES AT HOME WITH HER AND GRAND-DAUGHTER, (WHOM SHE INTENDS TO ADOPT). SHE SLEEPS OKAY ONLY. SHE FRACTURED RIGHT ELBOW, RIGHT CHEEK FRACTURE, AND LEFT WRIST IN PAST. NO HISTORY OF AN EATING DISORDER. SHE DENIES HISTORY OF PHYSICAL/SEXUAL ABUSE. SHE WEARS SEAT BELTS. SHE IS CURRENT WITH IMMUNIZATIONS AND TETANUS. SHE IS UP TO DATE WITH DENTAL AND EYE EXAMINATIONS. SHE TAKES NO VITAMINS OR CALCIUM. REVIEW OF SYSTEMS CONSTITUTIONAL: ANY RECENT FEVER NO . CHILLS NO . WEIGHT CHANGE OF UNKNOWN REASONS NO . GASTROENTEROLOGY: NEW UNEXPLAINABLE CHANGES IN BOWEL CONTROL NO . CONSTIPATION NO . GENITOURINARY: ANY NEW CHANGE IN BLADDER CONTROL? NO . NEUROLOGY: NEW ONSET DIZZINESS OR NEUROLOGICAL CHANGES NOT MENTIONED NO . NEW NUMBNESS OR PAIN PATTERNS NOT MENTIONED AND PERTINENT TO TODAY'S VISIT NO . CARDIOLOGY: NEW CHEST PRESSURE NO . PATIENT DENIES NO . RESPIRATORY: UNEXPLAINABLE COUGH NO . NEW SHORTNESS OF BREATH NO . VITAL SIGNS WT 133.2 LBS, HT 63 IN, BMI 23.59 INDEX, BP 102/55 MM HG, HR 81 /MIN, RR 16 /MIN, TEMP 98.3 F, OXYGEN SAT % 94%, SAFE IN ENV? (Y/N) YES, NA INITIALS SC 15:10, REVIEWED BY: TYLER MIRANDA MA. EXAMINATION GENERAL EXAMINATION: GENERALNO ACUTE DISTRESS, WELL NOURISHED AND HYDRATED. PSYCHAPPROPRIATE MOOD AND AFFECT . LUNGS:CLEAR TO AUSCULTATION BILATERALLY, NO WHEEZES, RHONCHI, RALES. HEART:NO MURMURS, REGULAR RATE AND RHYTHM. ASSESSMENTS OTHER CHRONIC PAIN - G89.29 (PRIMARY) INTERVERTEBRAL DISC DISORDERS WITH RADICULOPATHY, LUMBOSACRAL REGION - M51.17 TREATMENT OTHER CHRONIC PAIN START HYDROCODONE-ACETAMINOPHEN TABLET, 7.5-325 MG, 1 TABLET NEEDED, ORALLY, EVERY 8 HRS PRN PAIN, 30 DAYS, 90 STOP MORPHINE SULFATE TABLET, 15 MG, 1 TAB, ORALLY, Q6H PRN MDD4 REFILL GABAPENTIN TABLET, 600 MG, 1, ORALLY, 1 IN AM,1 MIDDAY AND 2 AT HS, 30 DAYS, 120, REFILLS 2 PAIN PROCEDURE LOGDATE OF [id number]/22/2021PROCEDURE:LUMBAR EPIDURAL STEROID INJECTIONAMOUNT OF PRE SEDATEZOFRAN 4MG; VALIUM 10MG; OXYCODONE 10MGRESULT:UNSUCCESSFUL NOTES: 55-YEAR-OLD FEMALE IN FOR POST LUMBAR EPIDURAL STEROID INJECTION FOLLOW-UP. GIVEN PRESENT SYMPTOMS RECOMMENDED STOPPING MORPHINE AND STARTING NORCO 7.5 3 TIMES A DAY WITH FOLLOW-UP IN ONE MONTH TO DETERMINE EFFICACY OF TREATMENT. PATIENT HAS EXPRESSED UNDERSTANDING OF AND WAS IN AGREEMENT WITH TREATMENT PLAN. GIVEN TIME TO ASK QUESTIONS AND EXPRESS CONCERNS. CLINICAL NOTES: HYDROCODONE-ACETAMINOPHEN INFORMATION PRINTED AND PROVIDED TO PATIENT. PATIENT VERBALIZED AN UNDERSTANDING. BENNETT MIRANDA MA. INTERVERTEBRAL DISC DISORDERS WITH RADICULOPATHY, LUMBOSACRAL REGION REFILL BACLOFEN TABLET, 20 MG, 1 TABLET, ORALLY, 1 Q6H QID, 30 DAYS, 120 PROCEDURE CODES FA211 ESTABILISHED PATIENT [facility] CHARGE DISPOSITION & COMMUNICATION FOLLOW UP 4 WEEKS (REASON: NEW MED) ELECTRONICALLY SIGNED BY MERI ZHENG ON 03/12/2021 AT 10:48 AM EDT DISCLAIMER : THIS IS A VISIT SUMMARY EXTRACTED FROM THE [employer] CHART. IT IS NOT A COPY OF THE [employer] PROGRESS NOTE. MTDD
== END ==
LOC: M PAIN 14:45
PROVIDERS: ATTEND Family Medicine
DX: M51.17 Intervertebral disc disorders with radiculopathy, lumbosacral region (principal); G89.29 Other chronic pain; G47.00 Insomnia, unspecified; K21.9 Gastro-esophageal reflux disease without esophagitis; J44.9 Chronic obstructive pulmonary disease, unspecified; F17.210 Nicotine dependence, cigarettes, uncomplicated; Z86.59 Personal history of other mental and behavioral disorders; Z88.0 Allergy status to penicillin; Z88.1 Allergy status to other antibiotic agents; Z91.018 Allergy to other foods; Z79.891 Long term (current) use of opiate analgesic; Z79.899 Other long term (current) drug therapy

== ENCOUNTER → 2021-04-10 | Outpatient (CLI) | payer OTHER ==
[~2021-04-10] MED LIST changes: +ERGO500029 PO; -VITA50005 PO
--- NOTE | 2021-04-12 02:30 | ECWPNPC ---
PATIENT NAME: JOI MCCLAIN : 1965 GENDER: FEMALE VISIT DATE: 04/10/2021 DISCHARGE DATE: 04/10/21 1538 VISIT LOCKED DATE TIME: PHYSICIAN: REUBEN CRONIN PHYSICIAN PAGER NO: ACTIVE RESOURCE: REUBEN CRONIN REASON FOR APPOINTMENT 1. LOW BACK/NEW MED HISTORY OF PRESENT ILLNESS GENERAL: HPI 56-YEAR-OLD FEMALE FOR CHRONIC PAIN FOLLOW-UP. AT LAST CLINIC VISIT PATIENT WAS STARTED ON HYDROCODONE AND SHE ADMITS TODAY THAT SHE WAS UNABLE TO CONTINUE TAKING THIS MEDICATION IT UPSET HER STOMACH SUCH PATIENT RESTARTED MORPHINE.. -. FALL RISK SCREENING: SCREENING : STATES SHE FELL ONCE. STATES SHE DOESN'T REMEMBER FALLING BUT HER GRANDDAUNGHTERS FOUND HER ON THE BATHROOM FLOOR. HAD BRUISES ON HER ARM AFTER, STATES SHE WAS NOT EVALUSTED AFTER BY ED, UC OR PCP. PAIN SCREENING: PATIENT HAS A COMPLAINT OF ACUTE OR CHRONIC PAIN :YES LOCATION OF PAIN:LOW BACK, LEFT HIP, RIGHT HIP, LEG(S) INTENSITY OF PAIN (SCALE OF 1 TO 10):8 WHAT DOES YOUR PAIN FEEL LIKE:ACHING, BURNING, CONTINOUS, SHARP, STABBING, TENDER, SORE, SHOOTING DURATION:CONTINOUS, CONSTANT, AWAKENS FROM SLEEP PAIN IS INCREASED BY:ACTIVITIES, PROLONGED STANDING PAIN IS DECREASED BY:USE OF PAIN MEDICATIONS, OTHERS HEAT PAIN HAS INTERFERED WITH THE FOLLOWING: EVERYTHING NURSING NOTE: -. PAIN CENTER INTAKE QUESTIONS: DO YOU HAVE A HISTORY OF MRSA? :NO DO YOU TAKE A BLOOD THINNERS? :NO DO YOU HAVE ANY BLEEDING DISORDERS? :NO ANY NEW NUMBNESS OR WEAKNESS IN YOUR LEGS OR ARMS? :NO ANY PACEMAKER,DEFIBRILLATOR, OR DORSAL COLUMN STIMULATOR? :NO DO YOU HAVE ANY RASHES OR OPEN SORES? :NO ARE YOU ALLERGIC TO IV DYE? :NO ARE YOU DIABETIC? :NO ANY NEW PROBLEMS WITH YOUR MEDICATIONS? :YES UNABLE TO TAKE HYDROCODONE DUE TO SEVERE GI UPSET HAVE YOU RECEIVED A VACCINE IN THE PAST 30 DAYS? :NO DO YOU PLAN TO RECEIVE A VACCINE IN THE NEXT 21 DAYS? :NO DO YOU NEED ANY PRESCRIPTION? :YES MONVANTIK DO YOU TAKE ANY IMMUNOSUPPRESSIVE MEDICATIONS? :NO DO YOU HAVE ANY KIDNEY OR LIVER DISEASE? :NO IS THERE A CHANCE YOU COULD BE ? :NO ARE YOU BREAST FEEDING? :NO CURRENT MEDICATIONS TAKING IMITREX 50 MG TABLET 1 TABLET NEEDED ONE TIME, MAY REPEAT IN 2 HOURS IF HEADACHE STILL PRESENT, MDD 2 ORALLY DIRECTED TAKING ZOFRAN 4MG TABLET 2 TABLETS ORALLY BID PRN TAKING ATORVASTATIN CALCIUM 10MG TABLET 1 TABLET ORALLY ONCE A DAY TAKING HYDROXYZINE HCL 25 MG TABLET 1-2 TABLETS NEEDED ORALLY EVERY 8 HRS TAKING CELECOXIB 200 MG CAPSULE TAKE ONE CAPSULE BY MOUTH EVERY DAY WITH FOOD ORAL DAILY TAKING MOVANTIK 25 MG TABLET 1 TABLET IN THE MORNING ORALLY ONCE A DAY TAKING GABAPENTIN 600 MG TABLET 1 ORALLY 1 IN AM,1 MIDDAY AND 2 AT HS TAKING BACLOFEN 20 MG TABLET 1 TABLET ORALLY 1 Q6H QID TAKING OMEPRAZOLE 40MG CAPSULE DELAYED RELEASE TAKE ONE CAPSULE BY MOUTH DAILY TAKING CYMBALTA 60 MG CAPSULE DELAYED RELEASE PARTICLES 1 CAPSULE ORALLY ONCE A DAY TAKING ERGOCALCIFEROL 97531 UNIT CAPSULE 1 CAPSULE ORALLY ONCE A WEEK TAKING TRAZODONE HCL 100 MG TABLET 1 TABLET AT BEDTIME ORALLY ONCE A DAY TAKING MORPHINE SULFATE 15 MG TABLET 1 TABLET NEEDED ORALLY Q6H PRN MDD4 NOT-TAKING HYDROCODONE-ACETAMINOPHEN 7.5-325 MG TABLET 1 TABLET NEEDED ORALLY EVERY 8 HRS PRN PAIN NOT-TAKING LINZESS 145MCG CAPSULE 1 CAPSULE ORALLY ONCE A DAY NEEDED MEDICATION LIST REVIEWED AND RECONCILED WITH THE PATIENT PAST MEDICAL HISTORY DEPRESSION HYPERTENSION HYPERLIPIDEMIA INSOMNIA IBS REFLUX CHRONIC BACK PAIN ATHRITIS IN BACK BILATERAL HIP BURSITIS, RIGHT > LEFT NOCTURIA COPD-UNSPECIFIED PUMONARY NODULES-FOLLOWED BY [facility] DILATED COMMON BILE DUCT FROM 1.2 CM ON DECEMBER 2014 STUDY TO 1.7 CM 10/21/2019 PER PT MASS ON ADRENAL GLAND ALLERGIES PENICILLIN (FOR ALLERGIES USE ONLY): HIVES - ALLERGY ANCEF: HIVES - ALLERGY STRAWBERRIES/MANGOS: SEVERE HIVES, ITCHING - ALLERGY - ONSET DATE 01/10/2020 HYDROCODONE-ACETAMINOPHEN: SEVERE GI UPSET - SIDE EFFECTS SURGICAL HISTORY BACK SURGERY 2009 GALL BLADDER 1988 HYSTERECTOMY 1993 LEFT BREAST BIOPSY AGE 14 RIGHT BREAST BIOPSY 2003 FAMILY HISTORY FATHER: , DIAGNOSED WITH UNSPECIFIED HEART DISEASE MOTHER: , UNSPECIFIED HEART DISEASE, UNSPECIFIED CEREBRAL ARTERY OCCLUSION WITH CEREBRAL INFARCTION, OTHER MALIGNANT NEOPLASM OF UNSPECIFIED SITE, OTHER SPECIFIED CONDITIONS INFLUENCING HEALTH STATUS MOTHER-ALZHEIMER\NMOTHER,AUNT,GRANDMOTHER ALL HAD BREAST CA. SOCIAL HISTORY GENERAL: TOBACCO USE ARE YOU A:CURRENT SMOKER ARE YOU INTERESTED IN QUITTING?NOT READY TO QUIT COUNSELED THE PATIENT ON SMOKING EFFECTS, EDUCATION [id number]/20/2021 HOW MANY CIGARETTES A DAY DO YOU SMOKE?6-10 HOW SOON AFTER YOU WAKE UP DO YOU SMOKE YOUR FIRST CIGARETTE?6-30 MIN HOW OFTEN DO YOU SMOKE CIGARETTES?EVERY DAY PATIENT COUNSELED ON THE DANGERS OF TOBACCO USE AND URGED TO QUIT:04/10/2021 ADDITIONAL FINDINGS: TOBACCO USER NONE SMOKING CESSATION INFORMATION GIVEN02/08/2021 VAPORNO E-CIGARETTENO LATEX QUESTIONNAIRE LATEX ALLERGY : HAVE YOU EVER DEVELOPED ANY TYPE OF REACTION AFTER HANDLING LATEX PRODUCTS SUCH RUBBER GLOVES, CONDOMS, DIAPHRAGMS, BALLOONS, SOCKS, OR UNDERWEAR?NO LATEX ALLERGY : HAVE YOU EVER DEVELOPED ANY TYPE OF REACTION DURING OR AFTER DENTAL APPOINTMENT, VAGINAL/RECTAL EXAMINATION, SURGICAL PROCEDURE, OR ANY OTHER EXPOSURE?NO LATEX RISK : HAVE YOU EVER HAD ANY DIFFICULTY BREATHING OR HIVES AFTER EATING OR HANDLING ANY FRUITS, OR VEGETABLES; SUCH KIWI, BANANAS, STONE FRUITS, OR CHESTNUTSYES - PLEASE INDICATE : MANGOS LATEX RISK : DO YOU HAVE A PREVIOUS PERSONAL HISTORY OF MORE THAN NINE SURGERIES, SPINA BIFIDA, OR REPEATED CATHERIZATIONS? NO LATEX RISK : ARE YOU FREQUENTLY EXPOSED TO LATEX PRODUCTS IN YOUR OCCUPATION?NO DATE ASKED : 04/10/2021 ALCOHOL USE: NO. BMI CARE GOAL FOLLOW-UP ABOVE NORMAL BMI FOLLOW-UPDIETARY MANAGEMENT EDUCATION, GUIDANCE, AND COUNSELING ALCOHOL SCREENING DID YOU HAVE A DRINK CONTAINING ALCOHOL IN THE PAST YEAR?NO POINTS0 INTERPRETATIONNEGATIVE RECREATIONAL DRUG USE DRUG USE?NO CAFFEINE CAFFEINE USE?YES COFFEE,DIET PEPSI SEXUAL HX HAD SEX IN THE LAST 12 MONTHS (VAGINAL, ORAL, OR ANAL)?YES WITHMEN ONLY HAVE YOU EVER HAD AN STD?NO HIV / HEP-C SCREENING HIV TEST OFFERED TO PATIENT:YES DATE OFFERED:09/06/2019 CONSENT ON FILE TEST ACCEPTED:NO HEP-C TEST OFFERED TO PATIENT:YES DATE OFFERED:09/06/2019 CONSENT ON FILE REASON:PATIENT DECLINED TEST ACCEPTED:NO REASON:PATIENT DECLINED BROCHURE PROVIDED TO PATIENTNO ANGLICAN [id number] [employer]INTO LANGUAGE [place]ORGIAN. EDUCATION LEVEL OF EDUCATION:FINISHED HIGH SCHOOL 11TH GRADE LEARNING BARRIERS / SPECIAL NEEDS CHANGE FROM LAST VISIT?NO BARRIERS TO LEARNING?NO HEARING IMPAIRED?NO VISION IMPAIRED?YES COGNITIVELY IMPAIRED?NO :CORRECTIVE LENSES READING READINESS TO LEARN?YES LEARNING PREFERENCES?NO LEARNING CAPABILITIES PRESENT?YES EMOTIONAL BARRIERS?NO SPECIAL DEVICES?NO REGULATORY AFFAIRS ASSISTANT NEEDED?NO DOMESTIC VIOLENCE DO YOU FEEL SAFE IN YOUR ENVIRONMENT?YES DIET: REGULAR. MARITAL STATUS: . - PFS REFERRAL NEEDED?NO CLERGY REFERRAL NEEDED?NO PUBLIC HEALTH REFERRAL NEEDED?NO HAS THE PATIENT BEEN EDUCATED REGARDING HIS/HER PLAN OF CARE?YES HAS THE PATIENT BEEN EDUCATED REGARDING PAIN, THE RISK FOR PAIN, THE IMPORTANCE OF EFFECTIVE PAIN MANAGEMENT, AND THE PAIN ASSESSMENT PROCESS?YES ADVANCE DIRECTIVE ADVANCE DIRECTIVE DISCUSSED WITH PATIENT:YES PT DOES NOT HAVE ANY ADVANCED DIRECTIVES AND SHE DECLINES INFORMATION ON HCP AT THIS TIME. THIS PATIENT LIVES AT HOME WITH HER AND GRAND-DAUGHTER, (WHOM SHE INTENDS TO ADOPT). SHE SLEEPS OKAY ONLY. SHE FRACTURED RIGHT ELBOW, RIGHT CHEEK FRACTURE, AND LEFT WRIST IN PAST. NO HISTORY OF AN EATING DISORDER. SHE DENIES HISTORY OF PHYSICAL/SEXUAL ABUSE. SHE WEARS SEAT BELTS. SHE IS CURRENT WITH IMMUNIZATIONS AND TETANUS. SHE IS UP TO DATE WITH DENTAL AND EYE EXAMINATIONS. SHE TAKES NO VITAMINS OR CALCIUM. HOSPITALIZATION/MAJOR DIAGNOSTIC PROCEDURE FOR SURGERIES CHILD X 2 SMC 2-3 DAY FOR HYPOXIA 10/21/2019 REVIEW OF SYSTEMS CONSTITUTIONAL: ANY RECENT FEVER NO . CHILLS NO . WEIGHT CHANGE OF UNKNOWN REASONS NO . GASTROENTEROLOGY: NEW UNEXPLAINABLE CHANGES IN BOWEL CONTROL NO . CONSTIPATION NO . GENITOURINARY: ANY NEW CHANGE IN BLADDER CONTROL? NO . NEUROLOGY: NEW ONSET DIZZINESS OR NEUROLOGICAL CHANGES NOT MENTIONED NO . NEW NUMBNESS OR PAIN PATTERNS NOT MENTIONED AND PERTINENT TO TODAY'S VISIT NO . CARDIOLOGY: NEW CHEST PRESSURE NO . PATIENT DENIES NO . RESPIRATORY: UNEXPLAINABLE COUGH NO . NEW SHORTNESS OF BREATH NO . VITAL SIGNS WT 136.0 LBS, HT 63 IN, BMI 24.09 INDEX, BP 106/57 MM HG, HR 80 /MIN, RR 18 /MIN, TEMP 97.1 F, OXYGEN SAT % 96%, SAFE IN ENV? (Y/N) Y, NA INITIALS AW 1452, REVIEWED BY: Alfredo SAN RN. EXAMINATION GENERAL EXAMINATION: GENERALNO ACUTE DISTRESS, WELL NOURISHED AND HYDRATED. PSYCHAPPROPRIATE MOOD AND AFFECT . LUNGS:CLEAR TO AUSCULTATION BILATERALLY, NO WHEEZES, RHONCHI, RALES. HEART:NO MURMURS, REGULAR RATE AND RHYTHM. MUSCULOSKELETAL:POINT TENDER RIGHT GREATER TROCHANTER. ASSESSMENTS GREATER TROCHANTERIC BURSITIS OF RIGHT HIP - M70.61 (PRIMARY) TREATMENT GREATER TROCHANTERIC BURSITIS OF RIGHT HIP NOTES: 56-YEAR-OLD FEMALE IN FOR CHRONIC PAIN FOLLOW-UP. GIVEN PRESENTING SYMPTOMS AND RESULTS OF PHYSICAL EXAMINATION RECOMMEND RIGHT GREATER TROCHANTERIC BURSAL INJECTION WITH POST PROCEDURE FOLLOW-UP. PATIENT IS EXPRESSED UNDERSTANDING OF AND WAS IN AGREEMENT WITH TREATMENT PLAN. GIVEN TIME TO ASK QUESTIONS AND EXPRESS CONCERNS. ISTOP REGISTRY REVIEWED AND DEMONSTRATES COMPLLIANCE. (REF #[id number] ) BRINGS IN MEDICATIONS WHICH IS APPROPRIATE FOR WHAT WAS DISPENSED. RECENT URINE TOXICOLOGY REVIEWED. NO UNAUTHORIZED MEDICATIONS. NO ILLICIT SUBSTANCES AND PRESCRIBED MEDICATIONS WERE PRESENT. CLINICAL NOTES: PT DECLINED PRINTED INFORMATION ON GREATER TROCHANTER OF THE FEMUR INJECTION STATING SHE HAS HAD THEM AND IS FAMILIAR WITH THE PROCEDURE. PRINTED PRE-PROCDURE INSTRUCTIONS GIVEN TO AND REVIEWED WITH PATIENT AND SHE VERBALIZED UNDERSTANDING. . PROCEDURE CODES FA211 ESTABILISHED PATIENT [facility] CHARGE DISPOSITION & COMMUNICATION FOLLOW UP POST PROCEDURE (REASON: RIGHT GREATER TROCHANTER OF THE FEMUR BURSAL INJECTION) ELECTRONICALLY SIGNED BY MERI ZHENG ON 04/11/2021 AT 11:18 AM EDT DISCLAIMER : THIS IS A VISIT SUMMARY EXTRACTED FROM THE [employer] CHART. IT IS NOT A COPY OF THE [employer] PROGRESS NOTE. LAURA
== END ==
LOC: M PAIN 14:30
PROVIDERS: ATTEND Family Medicine
DX: M70.61 Trochanteric bursitis, right hip (principal); G89.29 Other chronic pain; K21.9 Gastro-esophageal reflux disease without esophagitis; J44.9 Chronic obstructive pulmonary disease, unspecified; F17.210 Nicotine dependence, cigarettes, uncomplicated; Z86.59 Personal history of other mental and behavioral disorders; Z88.0 Allergy status to penicillin; Z88.1 Allergy status to other antibiotic agents; Z88.5 Allergy status to narcotic agent; Z91.018 Allergy to other foods; Z79.899 Other long term (current) drug therapy

== ENCOUNTER → 2021-05-02 | Outpatient (CLI) | payer OTHER ==
--- NOTE | 2021-05-02 16:52 | REP ---
INDICATION: ABNORMAL PRIOR CT SCAN COMPARISON: 02/07/2020 the only prior TECHNIQUE: Standard helical technique without intravenous contrast FINDINGS: The mediastinum and pulmonary riley are stable. There is no mass or adenopathy. There are no pleural or pericardial effusions. The imaged upper abdomen is unchanged. There is evidence of significant dilatation of the common bile duct but seen in a markedly limited fashion and essentially unchanged from an abdominal CT of 10/21/2019. The osseous structures are within normal limits. Evaluation of the lung breen shows no change in the 7 mm size right lower lobe nodule. There are 2 additional subpleural nodules also seen in the right lower lobe which are unchanged as well. One measures 1.1 cm and the other measures 5 mm. No new abnormal nodules, masses, or opacities have developed. There is a small amount of mucoid debris in the right mainstem bronchus. This was also seen on the prior exam. IMPRESSION: Stable CT examination of the chest with findings as described above. According to the revised Fleischner society criteria yearly CT screening is warranted. <Electronically signed by Chris Stokes > 05/02/21 [id number]
== END ==
LOC: M RAD 15:54
PROVIDERS: ATTEND Physician Assistant
DX: R93.89 Abnormal findings on diagnostic imaging of other specified body structures (principal)

== ENCOUNTER → 2021-06-21 | Outpatient (CLI) | payer OTHER | LOC: M LABSMTC 10:46 | PROVIDERS: ATTEND Anesthesiology | DX: Z01.812 Encounter for preprocedural laboratory examination (principal); Z20.822 Contact with and (suspected) exposure to COVID-19 ==

== ENCOUNTER → 2021-07-04 | Outpatient (REF) | payer OTHER | LOC: M SFHCCAPE 14:35 | PROVIDERS: ATTEND Physician Assistant | DX: L03.319 Cellulitis of trunk, unspecified (principal); Z53.9 Procedure and treatment not carried out, unspecified reason ==

== ENCOUNTER → 2021-07-05 | Outpatient (REF) | payer OTHER | LOC: M SFHCCLAY 15:37 | PROVIDERS: ATTEND Physician Assistant | DX: L03.319 Cellulitis of trunk, unspecified (principal) ==

== ENCOUNTER → 2021-09-27 | Outpatient (CLI) | payer OTHER | LOC: M LABSMTC 11:32 | PROVIDERS: ATTEND Anesthesiology | DX: Z01.812 Encounter for preprocedural laboratory examination (principal); Z20.822 Contact with and (suspected) exposure to COVID-19 ==

== ENCOUNTER → 2021-10-02 | Outpatient (CLI) | payer OTHER ==
[~2021-10-02] MED LIST changes: +BUPIVACAINE HCL 0.25% 30ML VIAL As Ordered ONE; +ISOVUE-M 300 61% 15ML VIAL As Ordered ONE; +LIDOCAINE 1% SDV 30ML VIAL As Ordered ONE; +ONDANSETRON 4 MG ORAL DISINTEGRATING TAB As Ordered ONE; +TRIAMCINOLONE ACETONIDE SUSP 40 MG/ML VIAL (J3301) As Ordered ONE; +diazePAM 5MG TABLET As Ordered ONE; +oxyCODONE 5MG TAB As Ordered ONE
--- NOTE | 2021-10-02 17:32 | REP ---
INDICATION: RIGHT GREATER TROCHANTER OF THE FEMUR BURSAL. COMPARISON: None. TECHNIQUE: Single fluoro graphic spot images. 15.5 seconds of fluoroscopy time were reported. FINDINGS: A sequence of images using last image hold technology were obtained. This documents the right hip, needle, and contrast consistent with injection procedure. IMPRESSION: Procedural imaging. <Electronically signed by Danyell Hutson > 10/02/21 1503 <Electronically signed by Mike Gabriel > 10/02/21 [id number]
== END ==
LOC: M PAIN 11:40
PROVIDERS: ATTEND Anesthesiology
DX: M70.60 Trochanteric bursitis, unspecified hip (principal); K21.9 Gastro-esophageal reflux disease without esophagitis; J44.9 Chronic obstructive pulmonary disease, unspecified; F17.210 Nicotine dependence, cigarettes, uncomplicated; Z86.59 Personal history of other mental and behavioral disorders; Z88.0 Allergy status to penicillin; Z88.1 Allergy status to other antibiotic agents; Z88.5 Allergy status to narcotic agent; Z91.018 Allergy to other foods; Z79.899 Other long term (current) drug therapy
CPT/HCPCS: 20610; 77002; J3301; Q0162; Q9967

== ENCOUNTER 2021-10-20 04:24 | Inpatient (IN) | payer OTHER ==
[~2021-10-20] VITALS: Ht 160 cm; Wt 45.5 kg
[~2021-10-20 04:24] MED LIST changes: -BUPIVACAINE HCL 0.25% 30ML VIAL As Ordered ONE; -ISOVUE-M 300 61% 15ML VIAL As Ordered ONE; -LIDOCAINE 1% SDV 30ML VIAL As Ordered ONE; -ONDANSETRON 4 MG ORAL DISINTEGRATING TAB As Ordered ONE; -TRIAMCINOLONE ACETONIDE SUSP 40 MG/ML VIAL (J3301) As Ordered ONE; -diazePAM 5MG TABLET As Ordered ONE; -oxyCODONE 5MG TAB As Ordered ONE
[2021-10-20 05:12] LABS: BASO # 0.1 10^3/uL (0.0-0.2); BASO % 0.6 % (0.0-1.0); EOS # 0.1 10^3/uL (0.0-0.5); EOS % 0.5 % (0.0-3.0); HEMOGLOBIN 12.2 g/dl (12.0-15.5); LYMPH # 1.4 10^3/uL (1.5-5.0); LYMPH % 11.4 % (24.0-44.0); MEAN CORPUSCULAR HEMOGLOBIN 30.1 pg (27.0-33.0); MEAN CORPUSCULAR HGB CONC 32.1 g/dl (32.0-36.5); MEAN CORPUSCULAR VOLUME 93.8 fl (80.0-96.0); MONO # 0.7 10^3/uL (0.0-0.8); MONO % 6.2 % (2.0-8.0); NEUTROPHILS # 9.7 10^3/uL (1.5-8.5); NEUTROPHILS % 80.8 % (36.0-66.0); PLATELET COUNT, AUTOMATED 295 10^3/uL (150-450); RED BLOOD COUNT 4.05 10^6/uL (4.00-5.40)
[2021-10-20 05:20] LABS: AMPHETAMINES LEVEL URINE NEGATIVE (NEGATIVE); BARBITURATES URINE NEGATIVE (NEGATIVE); BENZODIAZEPINES URINE NEGATIVE (NEGATIVE); CANNABINOIDS URINE NEGATIVE (NEGATIVE); COCAINE METABOLITE URINE NEGATIVE (NEGATIVE); METHADONE URINE NEGATIVE (NEGATIVE); OPIATES URINE POSITIVE (NEGATIVE); PHENCYCLIDINE URINE NEGATIVE (NEGATIVE)
[2021-10-20 05:46] LABS: CK-MB VALUE MASS 8.7 NG/ML (<3.6); MB/CK RELATIVE INDEX 3.87 (< OR =4)
[2021-10-20 05:50] LABS: ACETAMINOPHEN LEVEL < 2.0 UG/ML (10.0-30.0); ALBUMIN 2.9 GM/DL (3.2-5.2); ALT/SGPT 19 U/L (12-78); BILIRUBIN,DIRECT 0.2 MG/DL (0.0-0.2); BILIRUBIN,TOTAL 0.5 MG/DL (0.2-1.0); BLOOD UREA NITROGEN 12 MG/DL (7-18); CALCIUM LEVEL 9.1 MG/DL (8.5-10.1); CARBON DIOXIDE LEVEL 33 MEQ/L (21-32); CHLORIDE LEVEL 101 MEQ/L (98-107); ETHYL ALCOHOL (ETHANOL) < 0.003 % (0.000-0.010); GLOMERULAR FILTRATION RATE > 60.0 (>51); GLUCOSE, FASTING 156 MG/DL (70-100); POTASSIUM SERUM 3.4 MEQ/L (3.5-5.1); SALICYLATE LEVEL 3.4 MG/DL (5.0-30.0); SODIUM LEVEL 140 MEQ/L (136-145); TOTAL PROTEIN 6.8 GM/DL (6.4-8.2)
--- NOTE | 2021-10-20 06:31 | REPVR ---
PROCEDURE INFORMATION: Exam: CT Head Without Contrast Exam date and time: 10/20/2021 4:26 AM Age: 56 years old Clinical indication: Injury or trauma; Fall; Concussion/head injury TECHNIQUE: Imaging protocol: Computed tomography of the head without contrast. Radiation optimization: All CT scans at this facility use at least one of these dose optimization techniques: automated exposure control; mA and/or kV adjustment per patient size (includes targeted exams where dose is matched to clinical indication); or iterative reconstruction. COMPARISON: MRI-Brain without Contrast 2016-02-16 10:15 FINDINGS: Limitations: Motion artifact does moderately limit the sensitivity of this examination. Brain: Normal. No hemorrhage. Unremarkable white matter. No mass effect. Cerebral ventricles: No ventriculomegaly. Paranasal sinuses: Visualized sinuses are unremarkable. No fluid levels. Mastoid air cells: Visualized mastoid air cells are well aerated. Orbital cavity: Left periorbital and preseptal soft tissue contusions. Bones/joints: No acute fracture or dislocation. Soft tissues: Left lateral scalp and forehead subgaleal hematoma and soft tissue contusions. Left pre maxillary soft tissue contusion. IMPRESSION: 1. Left lateral scalp and forehead subgaleal hematoma and soft tissue contusions. 2. No acute osseous abnormality. Electronically signed by: Waqas Shane On 10/20/2021 06:30:29 AM
--- NOTE | 2021-10-20 06:33 | REPVR ---
PROCEDURE INFORMATION: Exam: CT Cervical Spine Without Contrast Exam date and time: 10/20/2021 4:26 AM Age: 56 years old Clinical indication: Neck pain; Additional info: Fall TECHNIQUE: Imaging protocol: Computed tomography images of the cervical spine without contrast. Radiation optimization: All CT scans at this facility use at least one of these dose optimization techniques: automated exposure control; mA and/or kV adjustment per patient size (includes targeted exams where dose is matched to clinical indication); or iterative reconstruction. COMPARISON: 1. XA FLUORO GUIDE SPINE INJECTION 2021-02-08 13:10 2. XA FLUORO GUIDE SPINE INJECTION 2020-07-25 11:57 FINDINGS: Limitations: Motion artifact does moderately limit the sensitivity of this examination. Poor signal to noise ratio and resolution. Bones/joints: Straightening of the normal cervical lordotic curvature. Normal vertebral body heights and alignments. No fractures. Mild age-indeterminate T1 anterior vertebral height loss, difficult to visualize given the image limitations. Discs/Spinal canal/Neural foramina: Diffuse degenerative disc space loss with degenerative disc osteophyte complexes causes up to mild spinal and foraminal stenosis greatest at C4-C6 Lungs: Lung apices are normal. Soft tissues: Unremarkable. IMPRESSION: 1. No definite acute cervical abnormality, though limited image quality. 2. Mild age-indeterminate T1 anterior vertebral height loss, difficult to visualize given the image limitations. Electronically signed by: Waqas Shane On 10/20/2021 06:32:37 AM
--- NOTE | 2021-10-20 06:35 | REPVR ---
PROCEDURE INFORMATION: Exam: CT Maxillofacial Without Contrast Exam date and time: 10/20/2021 4:26 AM Age: 56 years old Clinical indication: Injury or trauma; Fall; Concussion/head injury; Loss of consciousness not known TECHNIQUE: Imaging protocol: Computed tomography images of the face without contrast. Radiation optimization: All CT scans at this facility use at least one of these dose optimization techniques: automated exposure control; mA and/or kV adjustment per patient size (includes targeted exams where dose is matched to clinical indication); or iterative reconstruction. COMPARISON: MRI-Brain without Contrast 2016-02-16 10:15 FINDINGS: Limitations: Motion artifact does moderately limit the sensitivity of this examination. Orbital cavity: Orbits are normal. Globes are unremarkable. Bones/joints: No acute fracture or dislocation. Paranasal sinuses: Moderate paranasal sinus disease. Soft tissues: Left periorbital, nasal, pre maxillary, and left forehead and lateral scalp and right periorbital soft tissue contusions and hematomas. IMPRESSION: 1. Left periorbital, nasal, pre maxillary, and left forehead and lateral scalp and right periorbital soft tissue contusions and hematomas. 2. No acute osseous abnormality. Electronically signed by: Waqas Shane On 10/20/2021 06:34:54 AM
[2021-10-20 07:34] LABS: ABG BASE EXCESS 2.8 (-2.0-2.0); ABG HCO3 29.8 MEQ/L (22.0-26.0); ABG O2 SATURATION 97.8 % (95.0-99.0); ABG STANDARD HCO3 26.9 MEQ/L (22.0-26.0); ABG TOTAL CO2 31.5 MEQ/L (22.0-29.0); ABG pH (ARTERIAL) 7.336 UNITS (7.350-7.450)
--- NOTE | 2021-10-20 07:53 | ECGEPIP ---
[facility] - ED Test Date: 2021-10-20 Pat Name: JOI MCCLAIN Department: Room: - Gender: Female [employer] A[employer]: BROOKS : 1965 Requested By: LEE Berkowitz Order Number: [id number] Reading MD: Kamla Asencio Measurements Intervals [place] Rate: 97 P: WI: 128 QRS: 143 QRSD: 84 T: -20 QT: 368 QTc: 467 Interpretive Statements Suspect arm lead reversal, interpretation assumes no reversal Normal sinus rhythm Low voltage QRS Lateral infarct , age undetermined NSTTW abnormalities No prior Electronically Signed on 10-20-2021 7:53:11 EST by Kamla Asencio
[2021-10-20] MEDS ORDERED: NALOXONE INJ 0.4MG/1ML VIAL (J2310 PER 1MG) As Ordered ONE (08:18)
[2021-10-20] MEDS ORDERED: NALOXONE INJ 0.4MG/1ML VIAL (J2310 PER 1MG) IV STA (08:18)
--- NOTE | 2021-10-20 09:00 | REP ---
INDICATION: syncope COMPARISON: None. TECHNIQUE: Portable AP view of the chest FINDINGS: The mediastinum and cardiac silhouette are within normal limits for portable technique. The lung breen demonstrates diffuse bilateral airspace disease (right greater than left). No effusion. No pneumothorax. Skeletal structures are intact. IMPRESSION: Findings suggest diffuse airspace disease. Differential diagnosis may include pneumonia and COVID-19 pulmonary disease. No prior examinations are available for comparison and correlation and follow-up is recommended. <Electronically signed by Tucker Mcgovern > 10/20/21 0857
--- NOTE | 2021-10-20 09:01 | REP ---
INDICATION: trauma. COMPARISON: None. TECHNIQUE: Single AP view of the pelvis FINDINGS: Examination is limited by positioning and evaluation of the left hip is incomplete. Age-related changes. No definite acute fracture or dislocation is appreciated. IMPRESSION: No obvious acute fracture or dislocation identified. As above. <Electronically signed by Tucker Mcgovern > 10/20/21 08
[2021-10-20] MEDS ORDERED: HYDR-3363 PO (09:10)
[2021-10-20] MEDS ORDERED: NEUR600T PO (09:10)
[2021-10-20] MEDS ORDERED: TRAZ-189 PO (09:11)
[2021-10-20] MEDS ORDERED: MED NOTE (09:13)
[2021-10-20] MEDS ORDERED: HOME MED LIST COMPLETE! XX SCH (09:15)
[2021-10-20 09:36] LABS: C REACTIVE PROTEIN QUANTITATIV 1.29 MG/DL (0.00-0.30); FERRITIN 177 NG/ML (8-252); LDH LACTATE DEHYDROGENASE 346 U/L (84-246); LIPASE 37 U/L (73-393)
--- NOTE | 2021-10-20 10:08 | REPVR ---
PROCEDURE INFORMATION: Exam: XR Right Tibia and Fibula Exam date and time: 10/20/2021 7:14 AM Age: 56 years old Clinical indication: Pain; Lower leg; Bilateral; Additional info: Trauma TECHNIQUE: Imaging protocol: XR Right tibia and fibula. Views: 2 views. COMPARISON: No relevant prior studies available. FINDINGS: Bones/joints: There is no evidence of fracture. Soft tissues: Normal. IMPRESSION: There is no evidence of fracture. PROCEDURE INFORMATION: Exam: XR Left Tibia and Fibula Exam date and time: 10/20/2021 7:14 AM Age: 56 years old Clinical indication: Pain; Lower leg; Bilateral; Additional info: Trauma TECHNIQUE: Imaging protocol: XR Left tibia and fibula. Views: 2 views. COMPARISON: No relevant prior studies available. FINDINGS: Bones/joints: There is no evidence of fracture. Soft tissues: Normal. IMPRESSION: There is no evidence of fracture. Electronically signed by: Fortunato Manuel On 10/20/2021 10:07:28 AM
[2021-10-20] MEDS ORDERED: GLUCAGON INJ 1MG VIAL SC PRN (10:35)
[2021-10-20] MEDS ORDERED: GLUCOSE 4GM CHEW TABLET PO PRN (10:35)
[2021-10-20] MEDS ORDERED: DEXTROSE 50% 50 ML SYRINGE IV PRN (10:35)
--- NOTE | 2021-10-20 10:39 | HPEPDOC ---
[facility] Medical History & Physical Date of Admission Oct 20, 2021 Date of Service: Oct 20, 2021 History and Physical CHIEF COMPLAINT: "I fell" HISTORY OF PRESENT ILLNESS: 56-year-old female present emergency room department after a fall. She is unable to provide a reliable history due to her somnolent state. She had to be awoken several times during history taking. She reported falling but not losing consciousness. However, she was unsure/unable to recollect events that happened prior to the fall. Her was contacted and reported he found her on the floor leaning against the vanity. He was unable to provide much detail, except for reporting she is often noted to be in a lethargic state and when she is she is put to bed with recovery. He is unaware if she is taking her medications as prescribed. In the emergency room department she had trauma work-up done, which revealed no acute fractures; refer to imaging section for. Her initial vitals ported to be stable. However, at some point she desaturated to 77% and was put on a nonrebreather. This was later switched to high flow. She tested positive for Covid 19. PAST MEDICAL HISTORY: Hypertension Hyperlipidemia GERD COPD Chronic back pain Depression Anxiety Pulmonary nodule PAST SURGICAL HISTORY: Hysterectomy Bilateral breast biopsies Unspecified back surgery SOCIAL HISTORY: Patient was able to stay she smokes, from previous records noted she smokes half pack a day for over 30 years. Denied drinking and recreational drug use. FAMILY HISTORY: No pertinent family history ALLERGIES: Please see below. REVIEW OF SYSTEMS: Difficult to obtain due to her mental status HOME MEDICATIONS: Please see below. PHYSICAL EXAMINATION: VITAL SIGNS: Please see below General: Lying in bed, no acute distress Head/Neck/Throat: Trachea midline, mucous membranes moist Eyes: Sclera anicteric, PERRLA Thorax: Normal respiratory effort on room air, lungs clear to auscultation bilaterally, no wheezes/rales/rhonchi Cardiovascular: Normal rate, regular rhythm, normal S1, S2; no S3, S4, rubs/gallops/murmurs Abdomen: Bowel sounds present, soft/nontender/nondistended Genitourinary: No CVA tenderness, Castanon draining yellow urine Musculoskeletal: She is able to follow commands and is moving her upper and lower extremities. She is able to hold her hands and legs up when asked to do so. She has full range of motion in her upper and lower extremities. Skin: Hematoma of the orbital region, scalp laceration with no bleeding Neurologic: AAOx3, speech fluent and goal-directed, no focal deficits, grossly intact LABORATORY DATA: See below. IMAGING: Please see imaging section MICROBIOLOGY: Please see below. ASSESSMENT/PLAN: 56-year-old female with a past medical history of HTN, HLD, GERD, COPD, chronic back pain, depression, anxiety, and pulmonary nodule presented to the emergency room department following a fall. She tested positive for COVID-19. Etiology of fall at this time is unclear. #Altered mental status/metabolic encephalopathy -Patient does not describe similar lethargic/somnolent states in the past. Is possible this is secondary to her ambulatory medications -baclofen, hydroxyzine, morphine, and trazodone can be contributing. She received Narcan in the ED and appeared to be a little more arousable. -ABG (7.33/57/114) there is respiratory acidosis with compensation, and co2 is less likely contributing to her somnolent state. #Fall -Likely from the above reasons. Monitor on tele to r/o arrhythmias. #Left periorbital, nasal, pre maxillary, and left forehead and lateral scalp and right periorbital soft tissue contusions and hematomas. Left lateral scalp and forehead subgaleal hematoma and soft tissue contusions. -Monitor for stability #COVID-19 -Presently requiring highflow. She will be started on dexamethasone, remdesivir, and baricitinib. -Our goal oxygen saturation is 88 to 92% with her underlying COPD. Oxygen protocol in place. #COPD -No signs of acute exacerbation. Scheduled duo nebs. #Chronic back pain -We will hold chronic pain medications (baclofen, morphine, and gabapentin) unti l her mental status has improved #Hypertension -She is not on any antihypertensive medications, if required will initiate. #Hyperlipidemia -Continue statin therapy once mental status improves #Depression -Hold hydroxyzine and trazodone until mental status is improved #DVT prophylaxis -SCD for now. If hematoma remains stable will start chemical ppx. Vital Signs Vital Signs Date Time Temp Pulse Resp B/P (MAP) Pulse Ox O2 Delivery O2 Flow Rate FiO2 10/20/21 08:53 97 100 40.0 70 10/20/21 08:45 159/83 (108) Non-Rebreather 10/20/21 07:30 98.4 14 Laboratory Data Labs 24H Laboratory Tests 2 10/20/21 04:52: Immature Granulocyte % (Auto) 0.5, Neutrophils (%) (Auto) 80.8H, Lymphocytes (%) (Auto) 11.4L, Monocytes (%) (Auto) 6.2, Eosinophils (%) (Auto) 0.5, Basophils (%) (Auto) 0.6, Neutrophils # (Auto) 9.7H, Lymphocytes # (Auto) 1.4L, Monocytes # (Auto) 0.7, Eosinophils # (Auto) 0.1, Basophils # (Auto) 0.1, Nucleated Red Blood Cells % (auto) 0.0, Urine Color YELLOW, Urine Appearance CLEAR, Urine pH 6.0, Urine Specific [place] 1.011, Urine Protein NEGATIVE, Urine Glucose (UA) NEGATIVE, Urine Ketones NEGATIVE, Urine Blood NEGATIVE, Urine Nitrite NEGATIVE, Urine Bilirubin NEGATIVE, Urine Urobilinogen 0.2, Urine Leukocyte Esterase NEGATIVE, Urine WBC (Auto) 1, Urine RBC (Auto) 1, Urine Hyaline Casts (Auto) 0, Urine Bacteria (Auto) NEGATIVE, Urine Squamous Epithelial Cells 0, Urine Mucus (Auto) SMALL, Urine Sperm (Auto) , Anion Gap 6L, Glomerular Filtration Rate > 60.0, Lactic Acid Level 1.2, Calcium Level 9.1, Magnesium Level 2.0, Ferritin 177, Total Bilirubin 0.5, Direct Bilirubin 0.2, Aspartate Amino Transf (AST/SGOT) 23, Alanine Aminotransferase (ALT/SGPT) 19, Alkaline Phosphatase 71, Ammonia 17, Lactate Dehydrogenase 346H, Total Creatine Kinase 225H, Creatine Kinase MB 8.7H, Creatine Kinase MB Relative Index 3.87, Troponin I High Sensitivity 8.0, C-Reactive Protein, Quantitative 1.29H, Total Protein 6.8, Albumin 2.9L, Albumin/Globulin Ratio 0.7L, Lipase 37L, Procalcitonin <0.05, Thyroid Stimulating Hormone (TSH) 3.360, Salicylates Level 3.4L, Urine Opiates Screen POSITIVEH, Urine Methadone Screen NEGATIVE, Acetaminophen Level < 2.0L, Urine Barbiturates Screen NEGATIVE, Urine Phencyclidine Screen NEGATIVE, Urine Amphetamines Screen NEGATIVE, Urine Benzodiazepines Screen NEGATIVE, Urine Cocaine Metabolite Screen NEGATIVE, Urine Cannabinoids Screen NEGATIVE, Ethyl Alcohol Level < 0.003 10/20/21 07:23: Blood Gas Bicarbonate Standard 26.9H, Arterial Blood pH 7.336L, Arterial Blood Partial Pressure CO2 57.0H, Arterial Blood Partial Pressure O2 114.0H, Arterial Blood Total CO2 31.5H, Arterial Blood HCO3 29.8H, Arterial Blood Base Excess 2.8H, Arterial Blood Oxygen Saturation 97.8 CBC/BMP Laboratory Tests 10/20/21 04:52 Microbiology Microbiology 10/20/21 Respiratory Virus Panel (PCR) ([facility]) - Final, Complete SARS-CoV-2 (COVID 19) Home Medications Scheduled Atorvastatin Calcium (Atorvastatin Calcium) 10 Mg Tablet, 10 MG PO DAILY Baclofen (Baclofen) 20 Mg Tablet, 20 MG PO Q6H Duloxetine Hcl (Duloxetine HCl) 60 Mg Capsule.dr, 60 MG PO DAILY Ergocalciferol (Vitamin D2) (Vitamin D2) 50,000 Units Cap, 50,000 UNITS PO QWEEK SUNDAYS Gabapentin (Neurontin) 600 Mg Tablet, 600 MG PO QID 600MG AM, 600 MIDDAY, 1200 PM Omeprazole (Omeprazole) 40 Mg Capsule.dr, 40 MG PO DAILY Trazodone HCl (Trazodone HCl) 100 Mg Tablet, 100 MG PO QHS Scheduled PRN Docusate Sodium (Colace) 100 Mg Capsule, 200 MG PO BID PRN for CONSTIPATION Hydroxyzine HCl (Hydroxyzine HCl) 25 Mg Tablet, 1-2 TAB PO Q8H PRN for SLEEP Morphine Sulfate (Morphine Sulfate) 15 Mg Tab, 15 MG PO Q6H PRN for PAIN Ondansetron HCl (Zofran) 4 Mg Tablet, 8 MG PO BID PRN for NAUSEA OR VOMITING Sumatriptan Succinate (Imitrex) 50 Mg Tablet, 50 MG PO ASDIRECTED PRN for MIGRAINE Miscellaneous Medications [Med Note ] SPOKE TO Allergies Coded Allergies: Cephalosporins (Verified Allergy, Severe, HIVES/SOB, 10/21/19) Penicillins (Verified Allergy, Severe, AMPICILLIN-HIVES/SOB, 10/21/19) Tetracyclines (Verified Allergy, Severe, DOXYCYCLINE-HIVES/SOB, 10/21/19) erythromycin base (Verified Allergy, Severe, HIVES/SOB, 10/21/19) strawberry (Verified Allergy, Severe, HIVES, 10/21/19) [place] (Verified Allergy, Unknown, HIVES, 10/21/19) JARON ALBA M.D. Oct 20, 2021 10:39
[2021-10-20] MEDS ORDERED: ISOVUE-370 76% 100ML VIAL As Ordered ONE ×2 (11:29→11:42)
[2021-10-20 12:00] VITALS: BP 155/72
[2021-10-20 12:28] LABS: INR 0.96; PROTHROMBIN TIME 13.2 SECONDS (12.7-14.5)
[2021-10-20 12:29] LABS: PARTIAL THROMBOPLASTIN TIME 33.2 SECONDS (25.9-37.0)
[2021-10-20 12:32] LABS: D-DIMER QUANT 1205.03 ng/ml (<500)
--- NOTE | 2021-10-20 12:42 | REP ---
INDICATION: r/o PE COMPARISON: 05/02/2021 TECHNIQUE: Axial contrast enhanced images from the thoracic inlet to the upper abdomen using pulmonary embolus technique with multiplanar re-formations. 75 ml Isovue 370 intravenous contrast material administered without complication. This CT examination was performed using the following dose reduction techniques: Automated exposure control, adjustment of mA and/or kv according to the patient's size, and use of iterative reconstruction technique. FINDINGS: Satisfactory enhancement of the pulmonary vasculature is achieved and no filling defects are identified to suggest pulmonary embolus. Further evaluation of the mediastinum demonstrates relatively mild atherosclerotic changes to the thoracic aorta and coronary arteries without evidence for aortic aneurysm/dissection or cardiomegaly. No pericardial effusion. The lung breen again demonstrate chronic emphysematous changes with superimposed bilateral acute patchy opacities along with primarily left lower lobe consolidation and ill-defined right middle lobe and right basilar atelectasis/consolidations. Reactive mediastinal and right hilar adenopathy including 2.1 cm right hilar lymph node. No significant effusion. No pneumothorax. IMPRESSION: 1. No evidence for pulmonary embolus. 2. Diffuse bilateral opacities and left lower lobe/scattered basilar consolidations. Differential diagnosis includes multifocal pneumonia and COVID-19 pulmonary disease. <Electronically signed by Tucker Mcgovern > 10/20/21 [id number]
[2021-10-20 12:50] LABS: C REACTIVE PROTEIN QUANTITATIV 1.67 MG/DL (0.00-0.30)
[2021-10-20] MEDS: HumaLOG INSULIN (NovoLOG) PER UNIT SC SCH ×2 (13:10→18:00)
[2021-10-20] MEDS: KCL 10MEQ/100ML SWI (KRUN) 10 MEQ in IV 1 EA IV SCH ×4 (13:10→16:30)
[2021-10-20 14:00] VITALS: BP 156/73
[2021-10-20] MEDS ORDERED: REMDESIVIR 200 MG in NS 250 ML IV ONE (14:00)
[2021-10-20] MEDS: BARICITINIB 2MG TABLET (OLUMIANT) FOR EUA PO SCH (14:15)
[2021-10-20] MEDS: dexameTHASONE 20MG/5ML VIAL (J1100 PER 1MG) IV SCH (14:15)
[2021-10-20] MEDS: GABAPENTIN 300 MG CAP PO SCH ×2 (15:21→20:22)
[2021-10-20] MEDS: MORPHINE 30 MG TAB **MSIR PO PRN ×2 (15:21→21:52)
[2021-10-20] MEDS ORDERED: SODIUM CHLORIDE 0.9% INJ 10 ML SYR IV ONE (16:00)
[2021-10-20 20:00] VITALS: BP 141/63
[2021-10-20] MEDS: traZODone 100 MG TAB PO SCH (20:21)
[2021-10-20] MEDS: IPRATROPIUM 0.5MG/ALBUTEROL 2.5MG INH SOL UD 3ML (DUONEB) NEB SCH ×2 (20:40→20:41)
[2021-10-20] MEDS ORDERED: PILL CUTTER 1 EACH XX PRN (22:00)
[2021-10-21] MEDS: IPRATROPIUM 0.5MG/ALBUTEROL 2.5MG INH SOL UD 3ML (DUONEB) NEB SCH ×4 (02:00→20:20)
[2021-10-21 04:00] VITALS: BP 144/65
[2021-10-21] MEDS: MORPHINE 30 MG TAB **MSIR PO PRN ×3 (05:40→17:37)
[2021-10-21] MEDS: HumaLOG INSULIN (NovoLOG) PER UNIT SC SCH ×4 (05:54→16:29)
[2021-10-21 07:51] VITALS: O2SAT 88
[2021-10-21] MEDS: ATORVASTATIN 10 MG TAB PO SCH (08:42)
[2021-10-21] MEDS: DULoxetine 30MG CAPSULE (CYMBALTA) PO SCH (08:42)
[2021-10-21] MEDS: GABAPENTIN 300 MG CAP PO SCH ×3 (08:42→20:23)
[2021-10-21] MEDS: dexameTHASONE 20MG/5ML VIAL (J1100 PER 1MG) IV SCH (08:43)
[2021-10-21] MEDS: BARICITINIB 2MG TABLET (OLUMIANT) FOR EUA PO SCH (08:43)
[2021-10-21 10:08] LABS: ALBUMIN 2.6 GM/DL (3.2-5.2); ALT/SGPT 18 U/L (12-78); BILIRUBIN,TOTAL 0.5 MG/DL (0.2-1.0); BLOOD UREA NITROGEN 11 MG/DL (7-18); CALCIUM LEVEL 8.7 MG/DL (8.5-10.1); CARBON DIOXIDE LEVEL 30 MEQ/L (21-32); CHLORIDE LEVEL 102 MEQ/L (98-107); CREATININE FOR GFR 0.63 MG/DL (0.55-1.30); GLOMERULAR FILTRATION RATE > 60.0 (>51); GLUCOSE, FASTING 98 MG/DL (70-100); PHOSPHORUS LEVEL 2.6 MG/DL (2.5-4.9); POTASSIUM SERUM 3.2 MEQ/L (3.5-5.1); SODIUM LEVEL 136 MEQ/L (136-145); TOTAL PROTEIN 6.9 GM/DL (6.4-8.2)
--- NOTE | 2021-10-21 12:43 | IPNPDOC ---
Text Note Date of Service The patient was seen on 10/21/21. NOTE Subjective: 56-year-old female presented emergency room department after a fall. On admission she was somnolent and unable to provide details to what happened. However, this morning she is awake, alert, oriented x3. She reports feeling lethargic majority of the days and has had episodes in the past where she has fallen. Her medications were discussed with her and she was in agreement that it they may be contributing to her somnolent state. She reported just prior to her fall she had taken some of her ambulatory medications, but was unaware exactly which ones. She reported pain around her left orbital region, but denies just vision. She denies chest pain, shortness of breath, abdominal pain, nausea, vomiting, problems with urination or bowel movements. Review of systems: 10 point review of system was negative except for what is noted in the HPI Physical exam: General: Lying in bed, no acute distress Head/Neck/Throat: Trachea midline, mucous membranes moist Eyes: Sclera anicteric, PERRLA Thorax: Normal respiratory effort on room air, lungs clear to auscultation bilaterally, no wheezes/rales/rhonchi Cardiovascular: Normal rate, regular rhythm, normal S1, S2; no S3, S4, rubs/gallops/murmurs Abdomen: Bowel sounds present, soft/nontender/nondistended Genitourinary: No CVA tenderness, Castanon draining yellow urine Musculoskeletal: She is able to follow commands and is moving her upper and lower extremities. Skin: Hematoma of the orbital region, scalp laceration with no bleeding Neurologic: AAOx3, speech fluent and goal-directed, no focal deficits, grossly intact Labs: See below Imaging: Please see imaging section Assessment/plan: 56-year-old female with a past medical history of HTN, HLD, GERD, COPD, chronic back pain, depression, anxiety, and pulmonary nodule presented to the emergency room department following a fall. She tested positive for COVID-19. Etiology of fall at this time is unclear. #Altered mental status/metabolic encephalopathy -Resolved. This was likely secondary to her ambulatory medications -baclofen, hydroxyzine, morphine, and trazodone can be contributing. She received Narcan in the ED and appeared to be a little more arousable at that time. Upon discharge, patient's medications should be weaned further adjusted and she was in agreement with this. -ABG (7.33/57/114) there is respiratory acidosis with compensation, and co2 is less likely contributing to her somnolent state. #Fall -Likely from the above reasons. Monitor on tele to r/o arrhythmias. -Telemetry has not shown acute arrhythmias. Follow-up on echocardiogram which was ordered to rule out ventricular/valvular pathology that may be contributing to falls. #Left periorbital, nasal, pre maxillary, and left forehead and lateral scalp and right periorbital soft tissue contusions and hematomas. Left lateral scalp and forehead subgaleal hematoma and soft tissue contusions. -Monitor for stability #COVID-19 -On initial evaluation she was on high flow, but this was weaned off to 2 L nasal cannula. -c/w dexamethasone, remdesivir, and baricitinib. -Our goal oxygen saturation is 88 to 92% with her underlying COPD. Oxygen protocol in place. #COPD -No signs of acute exacerbation. Scheduled duo nebs. #Chronic back pain -We will begin to reintroduce some of her pain meds to prevent withdrawal; will hold the baclofen #Hypertension -She is not on any antihypertensive medications, if required will initiate. #Hyperlipidemia -Continue statin therapy once mental status improves #Depression -Continue duloxetine, and trazodone. Hold hydroxyzine. #DVT prophylaxis -SCD for now. If hematoma remains stable will start chemical ppx. VS,Fishbone, I+O VS, Fishbone, I+O Laboratory Tests 10/21/21 09:03 Vital Signs Date Time Temp Pulse Resp B/P (MAP) Pulse Ox O2 Delivery O2 Flow Rate FiO2 10/21/21 12:08 18 10/21/21 09:00 2.0 10/21/21 07:51 88 Room Air 10/21/21 04:00 97.0 91 144/65 (91) 10/20/21 08:53 70 I&O- Last 24 Hours up to 6 AM 10/21/21 06:00 Intake Total 2000 ml Output Total 3175 ml Balance -1175 ml JARON ALBA M.D. Oct 21, 2021 12:43
[2021-10-21] MEDS: REMDESIVIR 100 MG in NS 250 ML IV SCH (13:13)
[2021-10-21] MEDS: SODIUM CHLORIDE 0.9% INJ 10 ML SYR IV SCH (13:13)
[2021-10-21] MEDS: POTASSIUM CHLORIDE 10MEQ SR TABLET PO SCH ×2 (13:13→15:46)
[2021-10-21] MEDS ORDERED: REMDESIVIR 100 MG in NS 250 ML IV SCH (14:00)
[2021-10-21 17:48] VITALS: BP 134/62
[2021-10-21 20:00] VITALS: BP 135/63
[2021-10-21] MEDS ORDERED: MORPHINE 2 MG/ML 1ML VIAL (J2270) IV ONE (20:15)
[2021-10-21] MEDS: hydrOXYzine 25 MG TAB PO PRN (20:23)
[2021-10-21] MEDS: traZODone 100 MG TAB PO SCH (20:23)
[2021-10-21] MEDS: BACLOFEN 10 MG TAB PO PRN (22:42)
[2021-10-22] MEDS: IPRATROPIUM 0.5MG/ALBUTEROL 2.5MG INH SOL UD 3ML (DUONEB) NEB SCH ×4 (02:00→19:58)
[2021-10-22] MEDS: MORPHINE 30 MG TAB **MSIR PO PRN ×4 (03:14→18:49)
[2021-10-22 03:54] VITALS: BP 122/59
[2021-10-22 06:09] LABS: HEMATOCRIT 34.5 % (36.0-47.0); HEMOGLOBIN 11.5 g/dl (12.0-15.5); MEAN CORPUSCULAR HEMOGLOBIN 30.4 pg (27.0-33.0); MEAN CORPUSCULAR HGB CONC 33.3 g/dl (32.0-36.5); MEAN CORPUSCULAR VOLUME 91.3 fl (80.0-96.0); PLATELET COUNT, AUTOMATED 290 10^3/uL (150-450); RED BLOOD COUNT 3.78 10^6/uL (4.00-5.40); WHITE BLOOD COUNT 9.7 10^3/uL (4.0-10.0)
[2021-10-22 06:38] LABS: BLOOD UREA NITROGEN 13 MG/DL (7-18); CALCIUM LEVEL 8.9 MG/DL (8.5-10.1); CARBON DIOXIDE LEVEL 30 MEQ/L (21-32); CHLORIDE LEVEL 104 MEQ/L (98-107); CREATININE FOR GFR 0.59 MG/DL (0.55-1.30); GLOMERULAR FILTRATION RATE > 60.0 (>51); GLUCOSE, FASTING 80 MG/DL (70-100); MAGNESIUM LEVEL 2.1 MG/DL (1.8-2.4); PHOSPHORUS LEVEL 2.6 MG/DL (2.5-4.9); POTASSIUM SERUM 3.6 MEQ/L (3.5-5.1); SODIUM LEVEL 138 MEQ/L (136-145)
[2021-10-22] MEDS: hydrOXYzine 25 MG TAB PO PRN ×2 (09:44→23:56)
[2021-10-22] MEDS: dexameTHASONE 20MG/5ML VIAL (J1100 PER 1MG) IV SCH (09:44)
[2021-10-22] MEDS: DULoxetine 30MG CAPSULE (CYMBALTA) PO SCH (09:44)
[2021-10-22] MEDS: BARICITINIB 2MG TABLET (OLUMIANT) FOR EUA PO SCH (09:45)
[2021-10-22] MEDS: GABAPENTIN 300 MG CAP PO SCH ×3 (09:45→20:50)
[2021-10-22] MEDS: ATORVASTATIN 10 MG TAB PO SCH (09:45)
--- NOTE | 2021-10-22 12:02 | IPN ---
PROGRESS NOTE DATE: 10/22/2021 SUBJECTIVE: Katharine is seen on [address], she has COVID pneumonia, had a fall, has extensive ecchymosis of the left periorbital forehead which is minimally improved today per patient. She is on Dexamethasone, Remdesivir and Baricitinib for COVID pneumonia. She has underlying COPD. She was unvaccinated. Overall, she seems improved today. Denies shortness of breath, however she has been on nasal cannula, maintaining adequate oxygenation. OBJECTIVE: VITAL SIGNS: Afebrile. Vital signs are stable; 122/59, 95% saturation. GENERAL: She is alert and conversant. HEENT: Extensive ecchymosis of left forehead and around the left eye which is better per patient. LUNGS: Scattered rhonchi. HEART: Regular rhythm. ABDOMEN: Soft, nontender. EXTREMITIES: No peripheral edema. LABORATORY DATA: White count 9.7, hemoglobin 11.5, platelets are 290,000, sodium is 138, potassium is 3.6, BUN 13, creatinine is 0.5, glucose is 80. IMPRESSION: 1. COVID pneumonia day #3 of COVID specific therapy, less short of breath per patient. 2. Fall with extensive ecchymoses, seems to be a little better per patient. 3. Fall, Echocardiogram has been ordered, results are pending. Suspect she had a fall related to her extensive outpatient regimen which at the time included Baclofen, Hydroxyzine, Morphine and trazodone. 4. Metabolic encephalopathy probably from outpatient medications. She is fully alert and conversant at this time. 5. Chronic pain syndrome with chronic back pain, holding off on sedating medications at this time.
[2021-10-22] MEDS ORDERED: NICOTINE 21MG/24HR 1 EA TRANSDERMAL TD ONE (13:25)
[2021-10-22 13:51] VITALS: BP 120/56
[2021-10-22] MEDS: SODIUM CHLORIDE 0.9% INJ 10 ML SYR IV SCH (13:51)
[2021-10-22] MEDS: REMDESIVIR 100 MG in NS 250 ML IV SCH (13:51)
[2021-10-22] MEDS: guaiFENesin ER 600 MG TAB PO SCH (20:49)
[2021-10-22] MEDS: traZODone 100 MG TAB PO SCH (20:50)
[2021-10-22 21:05] VITALS: BP 129/70
[2021-10-23] MEDS: IPRATROPIUM 0.5MG/ALBUTEROL 2.5MG INH SOL UD 3ML (DUONEB) NEB SCH ×2 (01:59→08:04)
[2021-10-23] MEDS: MORPHINE 30 MG TAB **MSIR PO PRN (02:01)
[2021-10-23 04:00] VITALS: BP 116/64
[2021-10-23 07:04] LABS: HEMATOCRIT 38.5 % (36.0-47.0); HEMOGLOBIN 12.5 g/dl (12.0-15.5); MEAN CORPUSCULAR HEMOGLOBIN 29.4 pg (27.0-33.0); MEAN CORPUSCULAR HGB CONC 32.5 g/dl (32.0-36.5); MEAN CORPUSCULAR VOLUME 90.6 fl (80.0-96.0); PLATELET COUNT, AUTOMATED 365 10^3/uL (150-450); RED BLOOD COUNT 4.25 10^6/uL (4.00-5.40)
[2021-10-23 07:34] LABS: BLOOD UREA NITROGEN 14 MG/DL (7-18); CALCIUM LEVEL 9.2 MG/DL (8.5-10.1); CARBON DIOXIDE LEVEL 31 MEQ/L (21-32); CHLORIDE LEVEL 100 MEQ/L (98-107); CREATININE FOR GFR 0.74 MG/DL (0.55-1.30); GLOMERULAR FILTRATION RATE > 60.0 (>51); GLUCOSE, FASTING 65 MG/DL (70-100); POTASSIUM SERUM 3.3 MEQ/L (3.5-5.1); SODIUM LEVEL 137 MEQ/L (136-145)
[2021-10-23] MEDS ORDERED: NICOTINE 21MG/24HR 1 EA TRANSDERMAL TD SCH (09:00)
[2021-10-23] MEDS: GABAPENTIN 300 MG CAP PO SCH (09:09)
[2021-10-23] MEDS: ATORVASTATIN 10 MG TAB PO SCH (09:09)
[2021-10-23] MEDS: DULoxetine 30MG CAPSULE (CYMBALTA) PO SCH (09:09)
[2021-10-23] MEDS: guaiFENesin ER 600 MG TAB PO SCH (09:09)
[2021-10-23] MEDS: BACLOFEN 10 MG TAB PO PRN (09:09)
[2021-10-23] MEDS: BARICITINIB 2MG TABLET (OLUMIANT) FOR EUA PO SCH (09:10)
[2021-10-23] MEDS: dexameTHASONE 20MG/5ML VIAL (J1100 PER 1MG) IV SCH (09:10)
[2021-10-23] MEDS: hydrOXYzine 25 MG TAB PO PRN (10:55)
[2021-10-23] MEDS ORDERED: MUCI600T31 PO (11:18)
[2021-10-23] MEDS ORDERED: NICO21PAT TD (11:18)
[2021-10-23] MEDS ORDERED: BACL10TA2 PO (11:18)
[2021-10-23] MEDS ORDERED: GABA-282 PO ×2 (11:18)
[2021-10-23] MEDS ORDERED: DECA4TAB PO (11:18)
[2021-10-23] MEDS ORDERED: POTASSIUM CHLORIDE 10MEQ SR TABLET PO ONE (12:00)
[2021-10-23 12:23] LABS: ABG BASE EXCESS 2.8 (-2.0-2.0); ABG HCO3 26.5 MEQ/L (22.0-26.0); ABG O2 SATURATION 95.6 % (95.0-99.0); ABG PARTIAL PRESSURE CO2 37.5 mmHg (35.0-45.0); ABG PARTIAL PRESSURE O2 76.4 mmHg (75.0-100.0); ABG TOTAL CO2 27.6 MEQ/L (22.0-29.0); ABG pH (ARTERIAL) 7.467 UNITS (7.350-7.450)
--- NOTE | 2021-10-23 13:12 | DSES ---
DISCHARGE SUMMARY DATE OF ADMISSION: 10/20/2021 DATE OF DISCHARGE: 10/23/2021 PRIMARY DISCHARGE DIAGNOSIS: 1. Polypharmacy resulting in a mechanical fall and left facial extensive ecchymosis. 2. Coronavirus pneumonia. 3. Left facial ecchymosis secondary to fall. 4. Mechanical fall. 5. Acute metabolic encephalopathy secondary to polypharmacy. 6. COPD without acute exacerbation. 7. Chronic back pain. 8. Hypertension. 9. Hyperlipidemia. 10.Chronic depression. 11.A 40 pound weight loss. 12.History of pulmonary nodule. 13.Acute hypoxic respiratory failure, 77% on room air on admission due to COVID pneumonia. 14.Acute hypercarbic respiratory failure. DISCHARGE MEDICATIONS: 1. Baclofen 10 mg q. 6 as needed for pain. 2. Decadron 4 mg b.i.d. for three days. 3. Gabapentin 600 mg b.i.d. 4. Gabapentin 1200 mg q.h.s. 5. Mucinex 1200 mg b.i.d. 6. Atorvastatin 10 mg daily. 7. Colace 200 mg b.i.d. as needed for constipation. 8. Duloxetine 60 daily. 9. Vitamin D 50,000 units weekly. 10.Hydroxyzine 1-2 tablets q. 8 as needed for sleep. 11.Morphine Sulfate 15 mg q. 6 as needed for pain. 12.Prilosec 40 daily. 13.Zofran 8 mg b.i.d. as needed for nausea. 14.Imitrex 50 as directed for migraines. 15.Patient refusing a nicotine patch. 16.Tobacco cessation counseling has been provided. DISCHARGE INSTRUCTIONS: Avoid polypharmacy. PCP follow-up appointment in five days. PCP to evaluate the 40 pound weight loss to rule out malignancy. HOSPITAL COURSE: This is a 56-year-old active smoker with COPD, hypertension, hyperlipidemia, reflux, chronic back pain, depression, anxiety and pulmonary nodule who presented to the Emergency Room after a fall, found to be somnolent, and positive for Coronavirus showing infiltrates on x-ray and desaturating to 77% on room air, placed on a non-rebreather. Patient was given Narcan in the ER, became a little bit more arousable. She had acute respiratory acidosis with a pH of 7.33 and CO2 of 57 contributing to her altered mental status. The patient had a fall with left sided facial ecchymosis with left periorbital, nasal, maxillary, left forehead, lateral scalp and right periorbital soft tissue hematomas. Orbits were normal. Globes are unremarkable. Patient was not put on any antiplatelet or anticoagulation and was started on IV Remdesivir and Olumiant, Decadron, supplemental oxygen, Mucinex. Her poly pharmacy was reduced to Gabapentin 1200 mg q.h.s., 600 b.i.d. She was given nicotine patch and developed some hallucinations which resolved after discontinuation. Patient had improvement in her hypoxia and was on room air. CT of the chest was negative for PE. She had diffuse bilateral opacities with negative procalcitonin and was not put on antibiotics. Patient had significant improvement, saturating 96 to 98% on room air. She was afebrile and stable for discharge. PHYSICAL EXAMINATION ON DISCHARGE: Temperature 98.5, pulse 94, respiratory rate 18, blood pressure 116/64, 96% on room air. Generally, extensive hematoma of left forehead, periorbital area, left face and chin. Lungs are diminished with crackles bilaterally. Heart: S1 and S2, sinus tachycardia. Abdomen is soft, nontender and nondistended. Extremities: No pitting edema. LABORATORY DATA/IMAGING STUDIES/MICROBIOLOGY: Please see the chart. TIME SPENT ON DISCHARGE: 30 minutes MTDD
== END 2021-10-23 14:50 | disposition home health service (06) | DRG 137 ==
LOC: M ED 04:24 → M ED INP 10:32 → ENRESERV 10:51 → M 4MAIN 11:30
PROVIDERS: ADMIT Internal Medicine; ATTEND General Practice
DX: U07.1 COVID-19 (principal); J12.82 Pneumonia due to coronavirus disease 2019; J96.01 Acute respiratory failure with hypoxia; G92.8 Other toxic encephalopathy; J96.02 Acute respiratory failure with hypercapnia; J44.9 Chronic obstructive pulmonary disease, unspecified; I10 Essential (primary) hypertension; F32.A Depression, unspecified; R91.1 Solitary pulmonary nodule; E78.5 Hyperlipidemia, unspecified; Z79.899 Other long term (current) drug therapy; F17.200 Nicotine dependence, unspecified, uncomplicated; K21.9 Gastro-esophageal reflux disease without esophagitis; F41.9 Anxiety disorder, unspecified; S00.83XA Contusion of other part of head, initial encounter; S00.03XA Contusion of scalp, initial encounter; W18.30XA Fall on same level, unspecified, initial encounter; Z88.0 Allergy status to penicillin; Z91.018 Allergy to other foods; Z88.8 Allergy status to other drugs, medicaments and biological substances; G89.29 Other chronic pain; M54.50 Low back pain, unspecified

== ENCOUNTER 2021-10-25 10:56 | Inpatient (IN) | payer OTHER ==
[~2021-10-25 10:56] MED LIST changes: +DECA4TAB PO; +HYDR-3363 PO; +MED NOTE; +MUCI600T31 PO; +NEUR600T PO; +NICO21PAT TD; +TRAZ-189 PO; +dexameTHASONE 20MG/5ML VIAL (J1100 PER 1MG) IV SCH
[2021-10-25] MEDS ORDERED: NITROGLYCERIN 2% OINT 1 GM *U/D* PKT TOP SCH (12:00)
[2021-10-25 12:29] LABS: BASO % 0.2 % (0.0-1.0); HEMATOCRIT 36.4 % (36.0-47.0); HEMOGLOBIN 12.7 g/dl (12.0-15.5); LYMPH # 1.7 10^3/uL (1.5-5.0); LYMPH % 17.7 % (24.0-44.0); MEAN CORPUSCULAR HEMOGLOBIN 30.2 pg (27.0-33.0); MEAN CORPUSCULAR HGB CONC 34.9 g/dl (32.0-36.5); MEAN CORPUSCULAR VOLUME 86.7 fl (80.0-96.0); MONO # 0.4 10^3/uL (0.0-0.8); MONO % 4.1 % (2.0-8.0); NEUTROPHILS # 7.3 10^3/uL (1.5-8.5); NEUTROPHILS % 77.5 % (36.0-66.0); PLATELET COUNT, AUTOMATED 332 10^3/uL (150-450); WHITE BLOOD COUNT 9.5 10^3/uL (4.0-10.0)
[2021-10-25 12:30] LABS: VENOUS BASE EXCESS -0.4 (-2.0-2.0); VENOUS HCO3 25.8 MEQ/L (23.0-27.0); VENOUS O2 SATURATION 74.8 % (60.0-80.0); VENOUS PARTIAL PRESSURE CO2 48.5 mmHg (38.0-50.0); VENOUS PARTIAL PRESSURE O2 40.5 mmHg (30.0-50.0); VENOUS PH 7.344 UNITS (7.330-7.430); VENOUS STANDARD HCO3 23.6 MEQ/L; VENOUS TOTAL CO2 27.3 MEQ/L (24.0-28.0)
[2021-10-25 12:40] LABS: INR 1.01; PROTHROMBIN TIME 13.7 SECONDS (12.7-14.5)
[2021-10-25 12:41] LABS: PARTIAL THROMBOPLASTIN TIME 35.6 SECONDS (25.9-37.0)
[2021-10-25 13:00] LABS: OSMOLALITY SERUM 262 MOSM/KG (275-295)
[2021-10-25 13:03] LABS: CK-MB VALUE MASS 9.2 NG/ML (<3.6); MB/CK RELATIVE INDEX 5.35 (< OR =4)
[2021-10-25 13:11] LABS: ACETAMINOPHEN LEVEL < 2.0 UG/ML (10.0-30.0); ALBUMIN 3.3 GM/DL (3.2-5.2); ALT/SGPT 27 U/L (12-78); BILIRUBIN,DIRECT 0.4 MG/DL (0.0-0.2); BLOOD UREA NITROGEN 17 MG/DL (7-18); CALCIUM LEVEL 8.5 MG/DL (8.5-10.1); CARBON DIOXIDE LEVEL 27 MEQ/L (21-32); CHLORIDE LEVEL 91 MEQ/L (98-107); CREATININE FOR GFR 0.61 MG/DL (0.55-1.30); ETHYL ALCOHOL (ETHANOL) < 0.003 % (0.000-0.010); GLOMERULAR FILTRATION RATE > 60.0 (>51); GLUCOSE, FASTING 117 MG/DL (70-100); POTASSIUM SERUM 3.6 MEQ/L (3.5-5.1); SALICYLATE LEVEL 2.4 MG/DL (5.0-30.0); SODIUM LEVEL 128 MEQ/L (136-145)
[2021-10-25 14:03] LABS: AMPHETAMINES LEVEL URINE NEGATIVE (NEGATIVE); BARBITURATES URINE NEGATIVE (NEGATIVE); BENZODIAZEPINES URINE NEGATIVE (NEGATIVE); CANNABINOIDS URINE NEGATIVE (NEGATIVE); COCAINE METABOLITE URINE NEGATIVE (NEGATIVE); METHADONE URINE NEGATIVE (NEGATIVE); OPIATES URINE POSITIVE (NEGATIVE); PHENCYCLIDINE URINE NEGATIVE (NEGATIVE)
[2021-10-25] MEDS ORDERED: NALOXONE INJ 0.4MG/1ML VIAL (J2310 PER 1MG) IV STA (14:06)
[2021-10-25] MEDS ORDERED: TOLVAPTAN 7.5 MG HALF-TAB PO ONE (14:10)
[2021-10-25] MEDS ORDERED: NALOXONE INJ 0.4MG/1ML VIAL (J2310 PER 1MG) IV PRN (14:10)
[2021-10-25] MEDS ORDERED: ONDANSETRON 4MG/2ML VIAL IV PRN (14:15)
[2021-10-25] MEDS ORDERED: ACETAMINOPHEN TAB 650MG DOSE (2X325MG) PO PRN (14:15)
[2021-10-25] MEDS ORDERED: HOME MED LIST COMPLETE! XX SCH (14:20)
[2021-10-25 15:47] LABS: D-DIMER QUANT 1543.27 ng/ml (<500)
[2021-10-25] MEDS ORDERED: SODIUM CHLORIDE 1 GM TAB PO SCH (16:00)
[2021-10-25 16:02] LABS: C REACTIVE PROTEIN QUANTITATIV 1.5 MG/DL (0.00-0.30)
[2021-10-25] MEDS ORDERED: QUEtiapine FUMARATE 25 MG TAB PO ONE (16:40)
[2021-10-25] MEDS ORDERED: diphenhydrAMINE 50MG/ML VIAL (J1200) IV ONE (16:40)
[2021-10-25 16:45] VITALS: BP 142/81
[2021-10-25 18:29] LABS: BLOOD UREA NITROGEN 14 MG/DL (7-18); CALCIUM LEVEL 8.8 MG/DL (8.5-10.1); CARBON DIOXIDE LEVEL 30 MEQ/L (21-32); CHLORIDE LEVEL 90 MEQ/L (98-107); CREATININE FOR GFR 0.65 MG/DL (0.55-1.30); GLOMERULAR FILTRATION RATE > 60.0 (>51); GLUCOSE, FASTING 116 MG/DL (70-100); POTASSIUM SERUM 3.3 MEQ/L (3.5-5.1); SODIUM LEVEL 127 MEQ/L (136-145)
== END 2021-10-25 18:49 | disposition left against medical advice (07) | DRG 384 ==
LOC: M ED 10:56 → EDBD 10:56 → UNDOADMIN 14:01 → M ED INP 14:01 → M ED 18:49
PROVIDERS: ADMIT General Practice; ATTEND General Practice
DX: S00.83XA Contusion of other part of head, initial encounter (principal); F13.10 Sedative, hypnotic or anxiolytic abuse, uncomplicated; Z91.19 Patient's noncompliance with other medical treatment and regimen; M54.59 Other low back pain; W18.30XA Fall on same level, unspecified, initial encounter; Y92.009 Unspecified place in unspecified non-institutional (private) residence as the place of occurrence of the external cause; F11.10 Opioid abuse, uncomplicated

== ENCOUNTER → 2021-10-26 | Outpatient (CLI) | payer OTHER ==
[~2021-10-26] MED LIST changes: -dexameTHASONE 20MG/5ML VIAL (J1100 PER 1MG) IV SCH
== END ==
LOC: M PAIN 15:00
PROVIDERS: ATTEND Anesthesiology
DX: M54.50 Low back pain, unspecified (principal); M25.559 Pain in unspecified hip; R41.82 Altered mental status, unspecified; U07.1 COVID-19; J06.9 Acute upper respiratory infection, unspecified; K21.9 Gastro-esophageal reflux disease without esophagitis; J44.9 Chronic obstructive pulmonary disease, unspecified; F17.210 Nicotine dependence, cigarettes, uncomplicated; Z86.59 Personal history of other mental and behavioral disorders; Z88.0 Allergy status to penicillin; Z88.1 Allergy status to other antibiotic agents; Z88.5 Allergy status to narcotic agent; Z91.018 Allergy to other foods; Z79.899 Other long term (current) drug therapy

== ENCOUNTER → 2021-10-30 | Outpatient (CLI) | payer OTHER ==
[~2021-10-30] MED LIST changes: +CELE100C PO; +NALO25TA PO
== END ==
LOC: M PAIN 15:00
PROVIDERS: ATTEND Anesthesiology
DX: M54.50 Low back pain, unspecified (principal); G89.29 Other chronic pain; M25.559 Pain in unspecified hip; J06.9 Acute upper respiratory infection, unspecified; R41.82 Altered mental status, unspecified; K21.9 Gastro-esophageal reflux disease without esophagitis; J44.9 Chronic obstructive pulmonary disease, unspecified; F17.210 Nicotine dependence, cigarettes, uncomplicated; Z86.59 Personal history of other mental and behavioral disorders; Z88.0 Allergy status to penicillin; Z88.1 Allergy status to other antibiotic agents; Z88.5 Allergy status to narcotic agent; Z91.018 Allergy to other foods; Z79.899 Other long term (current) drug therapy

== ENCOUNTER 2021-11-01 14:36 | Inpatient (IN) | payer OTHER ==
[~2021-11-01] VITALS: Ht 160 cm; Wt 46.2 kg
[~2021-11-01 14:36] MED LIST changes: -CELE100C PO; -NALO25TA PO; -OMEP-221 PO; +OMEP40CA5 PO
[2021-11-01 17:00] VITALS: BP 173/89
[2021-11-01 17:50] LABS: ABG BASE EXCESS 9.4 (-2.0-2.0); ABG HCO3 33.5 MEQ/L (22.0-26.0); ABG O2 SATURATION 95.8 % (95.0-99.0); ABG PARTIAL PRESSURE CO2 43.2 mmHg (35.0-45.0); ABG PARTIAL PRESSURE O2 72.4 mmHg (75.0-100.0); ABG STANDARD HCO3 33.1 MEQ/L (22.0-26.0); ABG TOTAL CO2 34.8 MEQ/L (22.0-29.0); ABG pH (ARTERIAL) 7.507 UNITS (7.350-7.450)
[2021-11-01] MEDS ORDERED: THIAMINE 200MG 2ML VIAL IV ONE (18:20)
[2021-11-01 18:29] LABS: INR 0.89; PROTHROMBIN TIME 12.4 SECONDS (12.7-14.5)
[2021-11-01] MEDS ORDERED: KCL 20MEQ in NS 1000ML 1,000 ML IV SCH (18:30)
[2021-11-01 18:33] LABS: PARTIAL THROMBOPLASTIN TIME 35.1 SECONDS (25.9-37.0)
[2021-11-01 18:39] LABS: HEMOGLOBIN 11.9 g/dl (12.0-15.5); MEAN CORPUSCULAR HEMOGLOBIN 30.1 pg (27.0-33.0); MEAN CORPUSCULAR HGB CONC 37.2 g/dl (32.0-36.5); MEAN CORPUSCULAR VOLUME 80.8 fl (80.0-96.0); PLATELET COUNT, AUTOMATED 299 10^3/uL (150-450); RED BLOOD COUNT 3.96 10^6/uL (4.00-5.40); WHITE BLOOD COUNT 24.6 10^3/uL (4.0-10.0)
[2021-11-01 18:43] LABS: OSMOLALITY SERUM 225 MOSM/KG (275-295)
[2021-11-01] MEDS ORDERED: BACL1TAB9 PO (18:55)
[2021-11-01] MEDS ORDERED: CELE100C PO (18:55)
[2021-11-01] MEDS ORDERED: GABA600T4 PO (18:55)
[2021-11-01] MEDS ORDERED: NALO25TA PO (18:55)
[2021-11-01] MEDS ORDERED: HOME MED LIST COMPLETE! XX SCH (19:00)
[2021-11-01 19:16] LABS: ALBUMIN 2.9 GM/DL (3.2-5.2); ALT/SGPT 23 U/L (12-78); BILIRUBIN,TOTAL 1.2 MG/DL (0.2-1.0); BLOOD UREA NITROGEN 4 MG/DL (7-18); CALCIUM LEVEL 8.4 MG/DL (8.5-10.1); CARBON DIOXIDE LEVEL 35 MEQ/L (21-32); CHLORIDE LEVEL 70 MEQ/L (98-107); CREATININE FOR GFR 0.32 MG/DL (0.55-1.30); GLOMERULAR FILTRATION RATE > 60.0 (>51); GLUCOSE, FASTING 115 MG/DL (70-100); POTASSIUM SERUM 2.5 MEQ/L (3.5-5.1); SODIUM LEVEL 115 MEQ/L (136-145); TOTAL PROTEIN 6.3 GM/DL (6.4-8.2)
[2021-11-01] MEDS ORDERED: KCL 20MEQ IN 0.45NS 1000ML 1,000 ML IV SCH (19:30)
[2021-11-01 20:00] VITALS: BP 174/90
[2021-11-01] MEDS ORDERED: KCL 10MEQ/100ML SWI (KRUN) 10 MEQ in IV 1 EA IV ONE (20:00)
[2021-11-01] MEDS: PERCOCET 5MG/325MG TAB PO PRN (20:07)
[2021-11-01 21:04] LABS: BLOOD UREA NITROGEN 4 MG/DL (7-18); CALCIUM LEVEL 8.4 MG/DL (8.5-10.1); CARBON DIOXIDE LEVEL 34 MEQ/L (21-32); CHLORIDE LEVEL 71 MEQ/L (98-107); CREATININE FOR GFR 0.28 MG/DL (0.55-1.30); GLOMERULAR FILTRATION RATE > 60.0 (>51); GLUCOSE, FASTING 115 MG/DL (70-100); POTASSIUM SERUM 2.6 MEQ/L (3.5-5.1); SODIUM LEVEL 112 MEQ/L (136-145)
[2021-11-01 22:52] LABS: BLOOD UREA NITROGEN 3 MG/DL (7-18); CALCIUM LEVEL 8.3 MG/DL (8.5-10.1); CARBON DIOXIDE LEVEL 32 MEQ/L (21-32); CHLORIDE LEVEL 71 MEQ/L (98-107); CREATININE FOR GFR 0.33 MG/DL (0.55-1.30); GLOMERULAR FILTRATION RATE > 60.0 (>51); GLUCOSE, FASTING 111 MG/DL (70-100); POTASSIUM SERUM 2.7 MEQ/L (3.5-5.1); SODIUM LEVEL 112 MEQ/L (136-145)
[2021-11-02] VITALS (23 sets, daily range): BP systolic 148–211; BP diastolic 73–139
[2021-11-02 00:43] LABS: BLOOD UREA NITROGEN 4 MG/DL (7-18); CALCIUM LEVEL 8.4 MG/DL (8.5-10.1); CARBON DIOXIDE LEVEL 29 MEQ/L (21-32); CHLORIDE LEVEL 71 MEQ/L (98-107); CREATININE FOR GFR 0.34 MG/DL (0.55-1.30); GLOMERULAR FILTRATION RATE > 60.0 (>51); GLUCOSE, FASTING 113 MG/DL (70-100); POTASSIUM SERUM 2.7 MEQ/L (3.5-5.1); SODIUM LEVEL 111 MEQ/L (136-145)
[2021-11-02] MEDS: KCL 20MEQ in NS 1000ML 1,000 ML IV SCH ×2 (01:00→17:13)
[2021-11-02] MEDS ORDERED: POTASSIUM CHLORIDE 10MEQ SR TABLET PO ONE ×2 (01:00→15:00)
[2021-11-02] MEDS: PERCOCET 5MG/325MG TAB PO PRN ×2 (02:31→10:08)
[2021-11-02] MEDS ORDERED: BENZOCAINE 10% 9GM TUBE (ANBESOL) TOP ONE (03:00)
[2021-11-02 05:04] LABS: BASO % 0.1 % (0.0-1.0); EOS # 0.1 10^3/uL (0.0-0.5); EOS % 0.3 % (0.0-3.0); HEMATOCRIT 31.8 % (36.0-47.0); HEMOGLOBIN 11.8 g/dl (12.0-15.5); LYMPH # 1.5 10^3/uL (1.5-5.0); LYMPH % 6.7 % (24.0-44.0); MEAN CORPUSCULAR HEMOGLOBIN 29.8 pg (27.0-33.0); MEAN CORPUSCULAR HGB CONC 37.1 g/dl (32.0-36.5); MEAN CORPUSCULAR VOLUME 80.3 fl (80.0-96.0); MONO # 1.2 10^3/uL (0.0-0.8); MONO % 5.5 % (2.0-8.0); NEUTROPHILS # 19.4 10^3/uL (1.5-8.5); NEUTROPHILS % 86.7 % (36.0-66.0); PLATELET COUNT, AUTOMATED 304 10^3/uL (150-450); RED BLOOD COUNT 3.96 10^6/uL (4.00-5.40); WHITE BLOOD COUNT 22.3 10^3/uL (4.0-10.0)
[2021-11-02 05:17] LABS: BLOOD UREA NITROGEN 4 MG/DL (7-18); CALCIUM LEVEL 8.5 MG/DL (8.5-10.1); CARBON DIOXIDE LEVEL 29 MEQ/L (21-32); CHLORIDE LEVEL 73 MEQ/L (98-107); GLOMERULAR FILTRATION RATE > 60.0 (>51); GLUCOSE, FASTING 111 MG/DL (70-100); POTASSIUM SERUM 3.3 MEQ/L (3.5-5.1); SODIUM LEVEL 114 MEQ/L (136-145)
[2021-11-02 05:22] LABS: OSMOLALITY SERUM 226 MOSM/KG (275-295)
[2021-11-02] MEDS: amLODIPine 5 MG TAB PO SCH (08:07)
[2021-11-02] MEDS: BACLOFEN 10 MG TAB PO SCH ×2 (08:08→20:41)
[2021-11-02] MEDS: hydrALAZINE 20MG/ML 1ML VIAL (J0360 PER 20MG) IV PRN ×2 (08:22→15:07)
[2021-11-02 09:41] LABS: BLOOD UREA NITROGEN 4 MG/DL (7-18); CARBON DIOXIDE LEVEL 27 MEQ/L (21-32); CHLORIDE LEVEL 76 MEQ/L (98-107); CREATININE FOR GFR 0.41 MG/DL (0.55-1.30); GLOMERULAR FILTRATION RATE > 60.0 (>51); GLUCOSE, FASTING 116 MG/DL (70-100); POTASSIUM SERUM 3.3 MEQ/L (3.5-5.1); SODIUM LEVEL 113 MEQ/L (136-145)
[2021-11-02] MEDS ORDERED: LOSARTAN 50MG TABLET PO ONE (09:45)
[2021-11-02] MEDS ORDERED: SENNA 8.6 MG TAB (SENOKOT) PO PRN (11:50)
[2021-11-02] MEDS: METOPROLOL TART 25 MG TABLET PO SCH ×2 (12:06→20:42)
[2021-11-02] MEDS ORDERED: PILL CUTTER 1 EACH XX PRN (12:10)
[2021-11-02] MEDS: DOCUSATE SODIUM 100MG CAPSULE PO SCH ×2 (12:40→20:41)
[2021-11-02] MEDS: MORPHINE 30 MG TAB **MSIR PO SCH ×2 (12:41→20:48)
[2021-11-02 13:43] LABS: BLOOD UREA NITROGEN 6 MG/DL (7-18); CALCIUM LEVEL 9.1 MG/DL (8.5-10.1); CARBON DIOXIDE LEVEL 26 MEQ/L (21-32); CHLORIDE LEVEL 77 MEQ/L (98-107); CREATININE FOR GFR 0.38 MG/DL (0.55-1.30); GLOMERULAR FILTRATION RATE > 60.0 (>51); GLUCOSE, FASTING 150 MG/DL (70-100); POTASSIUM SERUM 2.9 MEQ/L (3.5-5.1); SODIUM LEVEL 114 MEQ/L (136-145)
[2021-11-02] MEDS: NICOTINE 7 MG/24 HR TRANSDERMAL TD SCH (14:36)
[2021-11-02] MEDS ORDERED: CHLORASEPTIC SPRAY MT PRN (16:20)
[2021-11-02] MEDS: NYSTATIN 500,000 U/5 ML SUSP UDC SS SCH ×2 (17:13→20:42)
[2021-11-02 17:17] LABS: BLOOD UREA NITROGEN 4 MG/DL (7-18); CALCIUM LEVEL 8.7 MG/DL (8.5-10.1); CARBON DIOXIDE LEVEL 27 MEQ/L (21-32); CHLORIDE LEVEL 76 MEQ/L (98-107); CREATININE FOR GFR 0.36 MG/DL (0.55-1.30); GLOMERULAR FILTRATION RATE > 60.0 (>51); GLUCOSE, FASTING 116 MG/DL (70-100); POTASSIUM SERUM 3.3 MEQ/L (3.5-5.1); SODIUM LEVEL 113 MEQ/L (136-145)
[2021-11-02] MEDS ORDERED: SODIUM CHLORIDE 1 GM TAB PO ONE (19:00)
[2021-11-02 20:36] LABS: BLOOD UREA NITROGEN 4 MG/DL (7-18); CALCIUM LEVEL 8.3 MG/DL (8.5-10.1); CARBON DIOXIDE LEVEL 25 MEQ/L (21-32); CHLORIDE LEVEL 78 MEQ/L (98-107); CREATININE FOR GFR 0.24 MG/DL (0.55-1.30); GLOMERULAR FILTRATION RATE > 60.0 (>51); GLUCOSE, FASTING 123 MG/DL (70-100); SODIUM LEVEL 116 MEQ/L (136-145)
[2021-11-02] MEDS: ATORVASTATIN 10 MG TAB PO SCH (20:41)
[2021-11-02] MEDS: POTASSIUM CHLORIDE 10MEQ SR TABLET PO SCH (20:43)
[2021-11-02] MEDS ORDERED: MORPHINE 30 MG TAB **MSIR PO SCH (21:00)
[2021-11-02] MEDS ORDERED: SODIUM CHLORIDE 1 GM TAB PO SCH (21:00)
[2021-11-02] MEDS ORDERED: VANCOMYCIN HCL 1,000 MG in IV FLUID PLACE HOLDER 1 EA IV SCH (22:30)
[2021-11-02] MEDS ORDERED: VANCOMYCIN HCL 1,000 MG, VIAL MATE ADAPTER 1 EACH in NS 250 ML IV ONE (23:00)
[2021-11-03] VITALS (19 sets, daily range): BP systolic 124–169; BP diastolic 54–95
[2021-11-03 01:13] LABS: BLOOD UREA NITROGEN 4 MG/DL (7-18); CALCIUM LEVEL 8.4 MG/DL (8.5-10.1); CARBON DIOXIDE LEVEL 25 MEQ/L (21-32); CHLORIDE LEVEL 79 MEQ/L (98-107); GLOMERULAR FILTRATION RATE > 60.0 (>51); GLUCOSE, FASTING 122 MG/DL (70-100); POTASSIUM SERUM 3.4 MEQ/L (3.5-5.1); SODIUM LEVEL 113 MEQ/L (136-145)
[2021-11-03] MEDS: VANCOMYCIN HCL 1,000 MG, VIAL MATE ADAPTER 1 EACH in NS 250 ML IV SCH ×3 (05:12→21:08)
[2021-11-03] MEDS: PERCOCET 5MG/325MG TAB PO PRN ×2 (05:13→23:13)
[2021-11-03 05:48] LABS: BASO % 0.1 % (0.0-1.0); EOS # 0.1 10^3/uL (0.0-0.5); EOS % 0.5 % (0.0-3.0); HEMATOCRIT 30.9 % (36.0-47.0); HEMOGLOBIN 11.2 g/dl (12.0-15.5); LYMPH # 1.1 10^3/uL (1.5-5.0); LYMPH % 7.9 % (24.0-44.0); MEAN CORPUSCULAR HEMOGLOBIN 29.8 pg (27.0-33.0); MEAN CORPUSCULAR HGB CONC 36.2 g/dl (32.0-36.5); MEAN CORPUSCULAR VOLUME 82.2 fl (80.0-96.0); MONO % 7.3 % (2.0-8.0); NEUTROPHILS # 11.4 10^3/uL (1.5-8.5); NEUTROPHILS % 83.6 % (36.0-66.0); PLATELET COUNT, AUTOMATED 277 10^3/uL (150-450); RED BLOOD COUNT 3.76 10^6/uL (4.00-5.40); WHITE BLOOD COUNT 13.6 10^3/uL (4.0-10.0)
[2021-11-03 06:14] LABS: BLOOD UREA NITROGEN 5 MG/DL (7-18); CALCIUM LEVEL 8.3 MG/DL (8.5-10.1); CARBON DIOXIDE LEVEL 25 MEQ/L (21-32); CHLORIDE LEVEL 80 MEQ/L (98-107); CREATININE FOR GFR 0.36 MG/DL (0.55-1.30); GLOMERULAR FILTRATION RATE > 60.0 (>51); GLUCOSE, FASTING 118 MG/DL (70-100); SODIUM LEVEL 115 MEQ/L (136-145)
[2021-11-03 09:39] LABS: BLOOD UREA NITROGEN 4 MG/DL (7-18); CALCIUM LEVEL 8.4 MG/DL (8.5-10.1); CARBON DIOXIDE LEVEL 26 MEQ/L (21-32); CHLORIDE LEVEL 81 MEQ/L (98-107); CREATININE FOR GFR 0.33 MG/DL (0.55-1.30); GLOMERULAR FILTRATION RATE > 60.0 (>51); GLUCOSE, FASTING 125 MG/DL (70-100); MAGNESIUM LEVEL 1.5 MG/DL (1.8-2.4); POTASSIUM SERUM 2.8 MEQ/L (3.5-5.1); SODIUM LEVEL 117 MEQ/L (136-145)
[2021-11-03 09:40] LABS: HEMATOCRIT 31.7 % (36.0-47.0); HEMOGLOBIN 11.7 g/dl (12.0-15.5); MEAN CORPUSCULAR HEMOGLOBIN 30.2 pg (27.0-33.0); MEAN CORPUSCULAR VOLUME 81.7 fl (80.0-96.0); PLATELET COUNT, AUTOMATED 260 10^3/uL (150-450); RED BLOOD COUNT 3.88 10^6/uL (4.00-5.40); WHITE BLOOD COUNT 10.7 10^3/uL (4.0-10.0)
[2021-11-03 09:55] LABS: MEAN CORPUSCULAR HGB CONC 36.9 g/dl (32.0-36.5)
[2021-11-03] MEDS: MORPHINE 30 MG TAB **MSIR PO SCH ×2 (10:01→21:06)
[2021-11-03] MEDS: NYSTATIN 500,000 U/5 ML SUSP UDC SS SCH ×3 (10:02→21:03)
[2021-11-03] MEDS: NICOTINE 7 MG/24 HR TRANSDERMAL TD SCH (10:02)
[2021-11-03] MEDS: ENOXAPARIN 40MG/0.4ML SYRINGE (J1650 PER 10MG) SC SCH (10:02)
[2021-11-03] MEDS: POTASSIUM CHLORIDE 10MEQ SR TABLET PO SCH ×4 (10:03→21:04)
[2021-11-03] MEDS: DOCUSATE SODIUM 100MG CAPSULE PO SCH ×2 (10:03→21:03)
[2021-11-03] MEDS: SODIUM CHLORIDE 1 GM TAB PO SCH ×2 (10:03→21:04)
[2021-11-03] MEDS: amLODIPine 5 MG TAB PO SCH (10:05)
[2021-11-03] MEDS: METOPROLOL TART 25 MG TABLET PO SCH ×2 (10:05→21:05)
[2021-11-03] MEDS: LOSARTAN 50MG TABLET PO SCH (10:05)
[2021-11-03] MEDS: BACLOFEN 10 MG TAB PO SCH ×2 (10:05→21:04)
[2021-11-03 12:57] LABS: BLOOD UREA NITROGEN 4 MG/DL (7-18); CALCIUM LEVEL 8.3 MG/DL (8.5-10.1); CARBON DIOXIDE LEVEL 27 MEQ/L (21-32); CHLORIDE LEVEL 81 MEQ/L (98-107); CREATININE FOR GFR 0.36 MG/DL (0.55-1.30); GLOMERULAR FILTRATION RATE > 60.0 (>51); GLUCOSE, FASTING 119 MG/DL (70-100); POTASSIUM SERUM 3.1 MEQ/L (3.5-5.1); SODIUM LEVEL 116 MEQ/L (136-145)
[2021-11-03] MEDS: MAG SULF 1GM/100ML (MAG RUN) 1 GM in IV 1 EA IV SCH ×2 (16:03→17:00)
[2021-11-03] MEDS: hydrALAZINE 20MG/ML 1ML VIAL (J0360 PER 20MG) IV PRN (17:10)
[2021-11-03 17:19] LABS: BLOOD UREA NITROGEN 4 MG/DL (7-18); CALCIUM LEVEL 8.2 MG/DL (8.5-10.1); CARBON DIOXIDE LEVEL 26 MEQ/L (21-32); CHLORIDE LEVEL 83 MEQ/L (98-107); CREATININE FOR GFR 0.36 MG/DL (0.55-1.30); GLOMERULAR FILTRATION RATE > 60.0 (>51); GLUCOSE, FASTING 142 MG/DL (70-100); POTASSIUM SERUM 3.3 MEQ/L (3.5-5.1); SODIUM LEVEL 118 MEQ/L (136-145)
[2021-11-03 20:44] LABS: BLOOD UREA NITROGEN 4 MG/DL (7-18); CALCIUM LEVEL 8.4 MG/DL (8.5-10.1); CARBON DIOXIDE LEVEL 23 MEQ/L (21-32); CHLORIDE LEVEL 84 MEQ/L (98-107); CREATININE FOR GFR 0.33 MG/DL (0.55-1.30); GLOMERULAR FILTRATION RATE > 60.0 (>51); GLUCOSE, FASTING 117 MG/DL (70-100); POTASSIUM SERUM 3.8 MEQ/L (3.5-5.1); SODIUM LEVEL 117 MEQ/L (136-145)
[2021-11-03] MEDS: ATORVASTATIN 10 MG TAB PO SCH (21:05)
[2021-11-04] VITALS (10 sets, daily range): BP systolic 140–168; BP diastolic 65–94
[2021-11-04 00:30] LABS: BLOOD UREA NITROGEN 4 MG/DL (7-18); CALCIUM LEVEL 8.4 MG/DL (8.5-10.1); CARBON DIOXIDE LEVEL 25 MEQ/L (21-32); CHLORIDE LEVEL 86 MEQ/L (98-107); CREATININE FOR GFR 0.34 MG/DL (0.55-1.30); GLOMERULAR FILTRATION RATE > 60.0 (>51); GLUCOSE, FASTING 105 MG/DL (70-100); POTASSIUM SERUM 4.4 MEQ/L (3.5-5.1); SODIUM LEVEL 119 MEQ/L (136-145)
[2021-11-04] MEDS: VANCOMYCIN HCL 750 MG, VIAL MATE ADAPTER 1 EACH in NS 250 ML IV SCH ×4 (03:18→21:23)
[2021-11-04] MEDS: ACETAMINOPHEN TAB 650MG DOSE (2X325MG) PO PRN (03:18)
[2021-11-04 04:47] LABS: HEMATOCRIT 31.1 % (36.0-47.0); HEMOGLOBIN 11.1 g/dl (12.0-15.5); MEAN CORPUSCULAR HEMOGLOBIN 29.6 pg (27.0-33.0); MEAN CORPUSCULAR HGB CONC 35.7 g/dl (32.0-36.5); MEAN CORPUSCULAR VOLUME 82.9 fl (80.0-96.0); PLATELET COUNT, AUTOMATED 245 10^3/uL (150-450); RED BLOOD COUNT 3.75 10^6/uL (4.00-5.40); WHITE BLOOD COUNT 6.6 10^3/uL (4.0-10.0)
[2021-11-04 05:21] LABS: BLOOD UREA NITROGEN 3 MG/DL (7-18); CALCIUM LEVEL 8.1 MG/DL (8.5-10.1); CARBON DIOXIDE LEVEL 24 MEQ/L (21-32); CHLORIDE LEVEL 84 MEQ/L (98-107); CREATININE FOR GFR 0.37 MG/DL (0.55-1.30); GLOMERULAR FILTRATION RATE > 60.0 (>51); GLUCOSE, FASTING 96 MG/DL (70-100); MAGNESIUM LEVEL 1.9 MG/DL (1.8-2.4); POTASSIUM SERUM 3.9 MEQ/L (3.5-5.1); SODIUM LEVEL 118 MEQ/L (136-145)
[2021-11-04] MEDS: DOCUSATE SODIUM 100MG CAPSULE PO SCH ×2 (08:21→21:22)
[2021-11-04] MEDS: BACLOFEN 10 MG TAB PO SCH ×2 (08:21→21:22)
[2021-11-04] MEDS: POTASSIUM CHLORIDE 10MEQ SR TABLET PO SCH ×3 (08:21→21:22)
[2021-11-04] MEDS: METOPROLOL TART 25 MG TABLET PO SCH ×2 (08:22→21:25)
[2021-11-04] MEDS: NICOTINE 7 MG/24 HR TRANSDERMAL TD SCH (08:22)
[2021-11-04] MEDS: ENOXAPARIN 40MG/0.4ML SYRINGE (J1650 PER 10MG) SC SCH (08:22)
[2021-11-04] MEDS: NYSTATIN 500,000 U/5 ML SUSP UDC SS SCH ×3 (08:22→21:23)
[2021-11-04] MEDS: LOSARTAN 50MG TABLET PO SCH (08:23)
[2021-11-04] MEDS: SODIUM CHLORIDE 1 GM TAB PO SCH ×3 (08:23→21:39)
[2021-11-04] MEDS: amLODIPine 5 MG TAB PO SCH (08:23)
[2021-11-04 08:41] LABS: BLOOD UREA NITROGEN 4 MG/DL (7-18); CALCIUM LEVEL 8.3 MG/DL (8.5-10.1); CARBON DIOXIDE LEVEL 24 MEQ/L (21-32); CHLORIDE LEVEL 85 MEQ/L (98-107); CREATININE FOR GFR 0.37 MG/DL (0.55-1.30); GLOMERULAR FILTRATION RATE > 60.0 (>51); GLUCOSE, FASTING 108 MG/DL (70-100); POTASSIUM SERUM 3.7 MEQ/L (3.5-5.1); SODIUM LEVEL 118 MEQ/L (136-145)
[2021-11-04] MEDS: MORPHINE 30 MG TAB **MSIR PO SCH ×2 (10:07→21:21)
[2021-11-04 12:45] LABS: BLOOD UREA NITROGEN 6 MG/DL (7-18); CALCIUM LEVEL 8.7 MG/DL (8.5-10.1); CARBON DIOXIDE LEVEL 25 MEQ/L (21-32); CHLORIDE LEVEL 87 MEQ/L (98-107); CREATININE FOR GFR 0.39 MG/DL (0.55-1.30); GLOMERULAR FILTRATION RATE > 60.0 (>51); GLUCOSE, FASTING 99 MG/DL (70-100); POTASSIUM SERUM 3.8 MEQ/L (3.5-5.1); SODIUM LEVEL 119 MEQ/L (136-145)
[2021-11-04] MEDS: PERCOCET 5MG/325MG TAB PO PRN (15:48)
[2021-11-04] MEDS: MAGIC MOUTHWASH SUSPENSION BTL SS PRN (16:07)
[2021-11-04 16:39] LABS: BLOOD UREA NITROGEN 6 MG/DL (7-18); CALCIUM LEVEL 8.8 MG/DL (8.5-10.1); CARBON DIOXIDE LEVEL 24 MEQ/L (21-32); CHLORIDE LEVEL 87 MEQ/L (98-107); CREATININE FOR GFR 0.43 MG/DL (0.55-1.30); GLOMERULAR FILTRATION RATE > 60.0 (>51); GLUCOSE, FASTING 106 MG/DL (70-100); SODIUM LEVEL 119 MEQ/L (136-145)
[2021-11-04 20:49] LABS: BLOOD UREA NITROGEN 6 MG/DL (7-18); CALCIUM LEVEL 8.6 MG/DL (8.5-10.1); CARBON DIOXIDE LEVEL 24 MEQ/L (21-32); CHLORIDE LEVEL 90 MEQ/L (98-107); CREATININE FOR GFR 0.42 MG/DL (0.55-1.30); GLOMERULAR FILTRATION RATE > 60.0 (>51); GLUCOSE, FASTING 95 MG/DL (70-100); SODIUM LEVEL 122 MEQ/L (136-145)
[2021-11-04] MEDS: ATORVASTATIN 10 MG TAB PO SCH (21:22)
[2021-11-05 04:00] VITALS: BP 156/79
[2021-11-05] MEDS: VANCOMYCIN HCL 750 MG, VIAL MATE ADAPTER 1 EACH in NS 250 ML IV SCH ×2 (04:25→12:10)
[2021-11-05] MEDS: MORPHINE 30 MG TAB **MSIR PO SCH ×2 (08:27→21:19)
[2021-11-05] MEDS: NICOTINE 7 MG/24 HR TRANSDERMAL TD SCH (08:28)
[2021-11-05] MEDS: ENOXAPARIN 40MG/0.4ML SYRINGE (J1650 PER 10MG) SC SCH (08:28)
[2021-11-05] MEDS: amLODIPine 5 MG TAB PO SCH (08:28)
[2021-11-05] MEDS: METOPROLOL TART 25 MG TABLET PO SCH ×2 (08:29→21:19)
[2021-11-05] MEDS: BACLOFEN 10 MG TAB PO SCH ×2 (08:29→21:20)
[2021-11-05] MEDS: SODIUM CHLORIDE 1 GM TAB PO SCH ×3 (08:29→21:19)
[2021-11-05] MEDS: DOCUSATE SODIUM 100MG CAPSULE PO SCH ×2 (08:29→21:19)
[2021-11-05] MEDS: LOSARTAN 50MG TABLET PO SCH (08:29)
[2021-11-05] MEDS: NYSTATIN 500,000 U/5 ML SUSP UDC SS SCH (08:29)
[2021-11-05] MEDS: POTASSIUM CHLORIDE 10MEQ SR TABLET PO SCH ×3 (08:30→21:20)
[2021-11-05 11:51] LABS: HEMATOCRIT 31.1 % (36.0-47.0); MEAN CORPUSCULAR HEMOGLOBIN 29.6 pg (27.0-33.0); MEAN CORPUSCULAR HGB CONC 35.4 g/dl (32.0-36.5); MEAN CORPUSCULAR VOLUME 83.6 fl (80.0-96.0); PLATELET COUNT, AUTOMATED 228 10^3/uL (150-450); RED BLOOD COUNT 3.72 10^6/uL (4.00-5.40); WHITE BLOOD COUNT 6.2 10^3/uL (4.0-10.0)
[2021-11-05 12:00] LABS: ALBUMIN 2.8 GM/DL (3.2-5.2); BLOOD UREA NITROGEN 4 MG/DL (7-18); CALCIUM LEVEL 8.8 MG/DL (8.5-10.1); CARBON DIOXIDE LEVEL 23 MEQ/L (21-32); CHLORIDE LEVEL 93 MEQ/L (98-107); CREATININE FOR GFR 0.28 MG/DL (0.55-1.30); GLOMERULAR FILTRATION RATE > 60.0 (>51); GLUCOSE, FASTING 98 MG/DL (70-100); MAGNESIUM LEVEL 1.9 MG/DL (1.8-2.4); PHOSPHORUS LEVEL 3.5 MG/DL (2.5-4.9); POTASSIUM SERUM 3.7 MEQ/L (3.5-5.1); SODIUM LEVEL 125 MEQ/L (136-145); VANCOMYCIN LEVEL TROUGH 18.5 UG/ML (10.0-20.0)
[2021-11-05 14:00] VITALS: BP 162/72
[2021-11-05] MEDS ORDERED: LIDOCAINE 1% MDV 20ML VIAL As Ordered ONE (15:05)
[2021-11-05 15:14] LABS: ALT/SGPT 24 U/L (12-78); BILIRUBIN,DIRECT 0.3 MG/DL (0.0-0.2); BILIRUBIN,TOTAL 0.5 MG/DL (0.2-1.0); C REACTIVE PROTEIN QUANTITATIV 1.36 MG/DL (0.00-0.30)
[2021-11-05] MEDS ORDERED: ISOVUE-370 76% 100ML VIAL As Ordered ONE (16:03)
[2021-11-05] MEDS: SODIUM CHLORIDE 0.9% INJ 10 ML SYR IV SCH (18:00)
[2021-11-05 19:11] LABS: BLOOD UREA NITROGEN 5 MG/DL (7-18); CALCIUM LEVEL 8.8 MG/DL (8.5-10.1); CARBON DIOXIDE LEVEL 26 MEQ/L (21-32); CHLORIDE LEVEL 92 MEQ/L (98-107); CREATININE FOR GFR 0.41 MG/DL (0.55-1.30); GLOMERULAR FILTRATION RATE > 60.0 (>51); GLUCOSE, FASTING 93 MG/DL (70-100); POTASSIUM SERUM 3.8 MEQ/L (3.5-5.1); SODIUM LEVEL 126 MEQ/L (136-145)
[2021-11-05 20:00] VITALS: BP 142/62
[2021-11-05] MEDS: ATORVASTATIN 10 MG TAB PO SCH (21:20)
[2021-11-05] MEDS: VANCOMYCIN HCL 1,000 MG, VIAL MATE ADAPTER 1 EACH in NS 250 ML IV SCH (21:21)
[2021-11-06] MEDS: PERCOCET 5MG/325MG TAB PO PRN ×2 (03:24→16:05)
[2021-11-06] MEDS: VANCOMYCIN HCL 1,000 MG, VIAL MATE ADAPTER 1 EACH in NS 250 ML IV SCH ×3 (03:24→23:24)
[2021-11-06 04:00] VITALS: BP 143/67
[2021-11-06] MEDS: SODIUM CHLORIDE 0.9% INJ 10 ML SYR IV SCH ×2 (05:37→18:16)
[2021-11-06 06:03] LABS: HEMATOCRIT 30.2 % (36.0-47.0); HEMOGLOBIN 10.5 g/dl (12.0-15.5); MEAN CORPUSCULAR HEMOGLOBIN 29.7 pg (27.0-33.0); MEAN CORPUSCULAR HGB CONC 34.8 g/dl (32.0-36.5); MEAN CORPUSCULAR VOLUME 85.6 fl (80.0-96.0); PLATELET COUNT, AUTOMATED 235 10^3/uL (150-450); RED BLOOD COUNT 3.53 10^6/uL (4.00-5.40); WHITE BLOOD COUNT 7.4 10^3/uL (4.0-10.0)
[2021-11-06 06:45] LABS: BLOOD UREA NITROGEN 4 MG/DL (7-18); CALCIUM LEVEL 8.7 MG/DL (8.5-10.1); CARBON DIOXIDE LEVEL 26 MEQ/L (21-32); CHLORIDE LEVEL 95 MEQ/L (98-107); CREATININE FOR GFR 0.37 MG/DL (0.55-1.30); GLOMERULAR FILTRATION RATE > 60.0 (>51); GLUCOSE, FASTING 95 MG/DL (70-100); MAGNESIUM LEVEL 1.8 MG/DL (1.8-2.4); POTASSIUM SERUM 3.4 MEQ/L (3.5-5.1); SODIUM LEVEL 128 MEQ/L (136-145)
[2021-11-06 06:48] LABS: ERYTHROCYTE SEDIMENTATION RATE 21 mm/hr (0-30)
[2021-11-06] MEDS: SODIUM CHLORIDE 1 GM TAB PO SCH ×3 (09:35→23:24)
[2021-11-06] MEDS: ENOXAPARIN 40MG/0.4ML SYRINGE (J1650 PER 10MG) SC SCH (09:35)
[2021-11-06] MEDS: NICOTINE 7 MG/24 HR TRANSDERMAL TD SCH (09:35)
[2021-11-06] MEDS: DOCUSATE SODIUM 100MG CAPSULE PO SCH ×2 (09:35→23:23)
[2021-11-06] MEDS: BACLOFEN 10 MG TAB PO SCH ×2 (09:36→23:24)
[2021-11-06] MEDS: POTASSIUM CHLORIDE 10MEQ SR TABLET PO SCH ×3 (09:36→23:24)
[2021-11-06] MEDS: MORPHINE 30 MG TAB **MSIR PO SCH ×2 (09:37→23:23)
[2021-11-06] MEDS: LOSARTAN 50MG TABLET PO SCH (09:42)
[2021-11-06] MEDS: amLODIPine 5 MG TAB PO SCH (09:42)
[2021-11-06] MEDS: METOPROLOL TART 25 MG TABLET PO SCH ×2 (09:42→23:31)
[2021-11-06 14:00] VITALS: BP 161/68
[2021-11-06] MEDS: MAGIC MOUTHWASH SUSPENSION BTL SS PRN (16:06)
[2021-11-06 20:00] VITALS: BP 136/63
[2021-11-06] MEDS: ATORVASTATIN 10 MG TAB PO SCH (23:24)
[2021-11-07] VITALS (7 sets, daily range): BP systolic 123–166; BP diastolic 58–76
[2021-11-07] MEDS: PERCOCET 5MG/325MG TAB PO PRN (04:59)
[2021-11-07] MEDS: VANCOMYCIN HCL 1,000 MG, VIAL MATE ADAPTER 1 EACH in NS 250 ML IV SCH (05:00)
[2021-11-07] MEDS: SODIUM CHLORIDE 0.9% INJ 10 ML SYR IV SCH ×2 (06:51→18:36)
[2021-11-07 07:46] LABS: HEMATOCRIT 30.8 % (36.0-47.0); HEMOGLOBIN 10.6 g/dl (12.0-15.5); MEAN CORPUSCULAR HEMOGLOBIN 29.9 pg (27.0-33.0); MEAN CORPUSCULAR HGB CONC 34.4 g/dl (32.0-36.5); PLATELET COUNT, AUTOMATED 231 10^3/uL (150-450); RED BLOOD COUNT 3.54 10^6/uL (4.00-5.40); WHITE BLOOD COUNT 7.1 10^3/uL (4.0-10.0)
[2021-11-07 08:13] LABS: MAGNESIUM LEVEL 1.7 MG/DL (1.8-2.4)
[2021-11-07 08:27] LABS: BLOOD UREA NITROGEN 4 MG/DL (7-18); CARBON DIOXIDE LEVEL 23 MEQ/L (21-32); CHLORIDE LEVEL 98 MEQ/L (98-107); CREATININE FOR GFR 0.44 MG/DL (0.55-1.30); GLOMERULAR FILTRATION RATE > 60.0 (>51); GLUCOSE, FASTING 97 MG/DL (70-100); SODIUM LEVEL 129 MEQ/L (136-145)
[2021-11-07] MEDS: DOCUSATE SODIUM 100MG CAPSULE PO SCH ×2 (09:05→20:43)
[2021-11-07] MEDS: MORPHINE 30 MG TAB **MSIR PO SCH ×2 (09:06→20:43)
[2021-11-07] MEDS: BACLOFEN 10 MG TAB PO SCH ×2 (09:06→20:43)
[2021-11-07] MEDS: POTASSIUM CHLORIDE 10MEQ SR TABLET PO SCH ×3 (09:06→20:43)
[2021-11-07] MEDS: SODIUM CHLORIDE 1 GM TAB PO SCH ×3 (09:06→20:43)
[2021-11-07] MEDS: MAGIC MOUTHWASH SUSPENSION BTL SS PRN ×3 (09:07→18:38)
[2021-11-07] MEDS: ENOXAPARIN 40MG/0.4ML SYRINGE (J1650 PER 10MG) SC SCH (09:07)
[2021-11-07] MEDS: METOPROLOL TART 25 MG TABLET PO SCH ×2 (09:08→20:44)
[2021-11-07] MEDS: amLODIPine 5 MG TAB PO SCH (09:09)
[2021-11-07] MEDS: LOSARTAN 50MG TABLET PO SCH (09:09)
[2021-11-07] MEDS: NICOTINE 7 MG/24 HR TRANSDERMAL TD SCH (09:11)
[2021-11-07] MEDS ORDERED: SIMETHICONE 80MG CHEW TAB PO PRN (11:20)
[2021-11-07] MEDS ORDERED: LIDOCAINE VISCOUS 2% SOLN 15ML UDC As Ordered ONE (13:32)
[2021-11-07] MEDS ORDERED: CETACAINE SPRAY 5GM As Ordered ONE (13:32)
[2021-11-07] MEDS ORDERED: propofoL 200 MG/20 ML VIAL As Ordered ONE (14:43)
[2021-11-07] MEDS ORDERED: PHENYLephrine 500MCG 5ML (100MCG/ML) SYRINGE As Ordered ONE (15:00)
[2021-11-07] MEDS ORDERED: METOCLOPRAMIDE INJ 10MG/2ML VIAL (J2765 PER 1) IV PRN (15:40)
[2021-11-07] MEDS ORDERED: MEPERIDINE INJ 25 MG/ML VIAL (J2175) IV PRN (15:40)
[2021-11-07] MEDS ORDERED: LR 1,000 ML IV SCH (15:40)
[2021-11-07] MEDS ORDERED: ONDANSETRON 4MG/2ML VIAL IV PRN (15:40)
[2021-11-07] MEDS ORDERED: oxyCODONE 5MG TAB PO PRN (15:45)
[2021-11-07] MEDS ORDERED: HYDROMORPHONE HCL 0.5 MG/ 0.5 ML SYRINGE (J1170 PER 1) IV PRN (15:45)
[2021-11-07] MEDS ORDERED: fentaNYL 100 MCG/2 ML INJECTION (J3010) IV PRN (15:45)
[2021-11-07] MEDS: VANCOMYCIN HCL 750 MG, VIAL MATE ADAPTER 1 EACH in NS 250 ML IV SCH (16:19)
[2021-11-07] MEDS: ATORVASTATIN 10 MG TAB PO SCH (20:43)
[2021-11-08] MEDS: VANCOMYCIN HCL 750 MG, VIAL MATE ADAPTER 1 EACH in NS 250 ML IV SCH ×2 (00:04→06:46)
[2021-11-08] MEDS: SODIUM CHLORIDE 0.9% INJ 10 ML SYR IV PRN (01:58)
[2021-11-08 04:00] VITALS: BP 143/63
[2021-11-08] MEDS: SODIUM CHLORIDE 0.9% INJ 10 ML SYR IV SCH ×2 (06:46→18:49)
[2021-11-08 06:56] LABS: HEMATOCRIT 31.2 % (36.0-47.0); HEMOGLOBIN 10.6 g/dl (12.0-15.5); MEAN CORPUSCULAR HEMOGLOBIN 29.6 pg (27.0-33.0); MEAN CORPUSCULAR VOLUME 87.2 fl (80.0-96.0); PLATELET COUNT, AUTOMATED 224 10^3/uL (150-450); RED BLOOD COUNT 3.58 10^6/uL (4.00-5.40); WHITE BLOOD COUNT 6.6 10^3/uL (4.0-10.0)
[2021-11-08 07:15] LABS: BLOOD UREA NITROGEN 3 MG/DL (7-18); CALCIUM LEVEL 8.8 MG/DL (8.5-10.1); CARBON DIOXIDE LEVEL 26 MEQ/L (21-32); CHLORIDE LEVEL 100 MEQ/L (98-107); CREATININE FOR GFR 0.42 MG/DL (0.55-1.30); GLOMERULAR FILTRATION RATE > 60.0 (>51); GLUCOSE, FASTING 79 MG/DL (70-100); MAGNESIUM LEVEL 1.8 MG/DL (1.8-2.4); POTASSIUM SERUM 3.8 MEQ/L (3.5-5.1); SODIUM LEVEL 133 MEQ/L (136-145)
[2021-11-08 08:54] VITALS: BP 147/74
[2021-11-08] MEDS: POTASSIUM CHLORIDE 10MEQ SR TABLET PO SCH ×3 (08:58→20:26)
[2021-11-08] MEDS: BACLOFEN 10 MG TAB PO SCH ×2 (08:58→20:26)
[2021-11-08] MEDS: SODIUM CHLORIDE 1 GM TAB PO SCH ×3 (08:58→20:24)
[2021-11-08] MEDS: MORPHINE 30 MG TAB **MSIR PO SCH ×2 (08:58→20:24)
[2021-11-08] MEDS: amLODIPine 5 MG TAB PO SCH (08:59)
[2021-11-08] MEDS: LOSARTAN 50MG TABLET PO SCH (08:59)
[2021-11-08] MEDS: DOCUSATE SODIUM 100MG CAPSULE PO SCH ×2 (08:59→20:26)
[2021-11-08] MEDS: METOPROLOL TART 25 MG TABLET PO SCH ×2 (08:59→20:26)
[2021-11-08] MEDS: ENOXAPARIN 40MG/0.4ML SYRINGE (J1650 PER 10MG) SC SCH (09:00)
[2021-11-08] MEDS: NICOTINE 7 MG/24 HR TRANSDERMAL TD SCH (09:00)
[2021-11-08] MEDS ORDERED: LIDOCAINE 1% MDV 20ML VIAL As Ordered ONE (10:17)
[2021-11-08] MEDS ORDERED: diazePAM 10MG/2ML SYRINGE (J3360 PER 5MG) IV ONE (13:00)
[2021-11-08] MEDS ORDERED: diazePAM 2 MG TAB PO ONE (13:00)
[2021-11-08 14:00] VITALS: BP 145/87
[2021-11-08 16:48] VITALS: BP 147/71
[2021-11-08] MEDS: VANCOMYCIN HCL 1,000 MG, VIAL MATE ADAPTER 1 EACH in NS 250 ML IV SCH (16:51)
[2021-11-08] MEDS: PERCOCET 5MG/325MG TAB PO PRN (16:59)
[2021-11-08 18:02] VITALS: BP 151/74
[2021-11-08] MEDS: ATORVASTATIN 10 MG TAB PO SCH (20:27)
[2021-11-08 20:30] VITALS: BP 128/79
[2021-11-08] MEDS: RAMELTEON 8 MG TAB (ROZEREM) PO PRN (22:00)
[2021-11-09] MEDS: VANCOMYCIN HCL 1,000 MG, VIAL MATE ADAPTER 1 EACH in NS 250 ML IV SCH ×2 (04:07→16:36)
[2021-11-09] MEDS: PERCOCET 5MG/325MG TAB PO PRN ×3 (04:08→20:56)
[2021-11-09] MEDS: SODIUM CHLORIDE 0.9% INJ 10 ML SYR IV SCH ×2 (05:42→16:37)
[2021-11-09 05:48] LABS: HEMATOCRIT 30.1 % (36.0-47.0); HEMOGLOBIN 10.1 g/dl (12.0-15.5); MEAN CORPUSCULAR HEMOGLOBIN 29.3 pg (27.0-33.0); MEAN CORPUSCULAR HGB CONC 33.6 g/dl (32.0-36.5); MEAN CORPUSCULAR VOLUME 87.2 fl (80.0-96.0); PLATELET COUNT, AUTOMATED 225 10^3/uL (150-450); RED BLOOD COUNT 3.45 10^6/uL (4.00-5.40); WHITE BLOOD COUNT 8.3 10^3/uL (4.0-10.0)
[2021-11-09 05:56] VITALS: BP 135/77
[2021-11-09 06:16] LABS: BLOOD UREA NITROGEN 5 MG/DL (7-18); CALCIUM LEVEL 8.4 MG/DL (8.5-10.1); CARBON DIOXIDE LEVEL 25 MEQ/L (21-32); CHLORIDE LEVEL 100 MEQ/L (98-107); CREATININE FOR GFR 0.48 MG/DL (0.55-1.30); GLOMERULAR FILTRATION RATE > 60.0 (>51); GLUCOSE, FASTING 146 MG/DL (70-100); MAGNESIUM LEVEL 1.7 MG/DL (1.8-2.4); POTASSIUM SERUM 3.7 MEQ/L (3.5-5.1); SODIUM LEVEL 131 MEQ/L (136-145)
[2021-11-09] MEDS: BACLOFEN 10 MG TAB PO SCH ×2 (08:56→20:51)
[2021-11-09] MEDS: amLODIPine 5 MG TAB PO SCH (08:56)
[2021-11-09] MEDS: SODIUM CHLORIDE 1 GM TAB PO SCH ×3 (08:56→20:53)
[2021-11-09] MEDS: LOSARTAN 50MG TABLET PO SCH (08:57)
[2021-11-09] MEDS: POTASSIUM CHLORIDE 10MEQ SR TABLET PO SCH ×3 (08:57→20:55)
[2021-11-09] MEDS: METOPROLOL TART 25 MG TABLET PO SCH ×2 (08:57→20:55)
[2021-11-09] MEDS: DOCUSATE SODIUM 100MG CAPSULE PO SCH ×2 (08:57→20:54)
[2021-11-09] MEDS: MORPHINE 30 MG TAB **MSIR PO SCH ×2 (08:58→20:51)
[2021-11-09] MEDS: ENOXAPARIN 40MG/0.4ML SYRINGE (J1650 PER 10MG) SC SCH ×2 (08:58→09:00)
[2021-11-09] MEDS: NICOTINE 7 MG/24 HR TRANSDERMAL TD SCH (09:00)
[2021-11-09] MEDS ORDERED: MAGNESIUM OXIDE 400MG TAB (MAG-OX) PO ONE (10:00)
[2021-11-09] MEDS: ATORVASTATIN 10 MG TAB PO SCH (20:56)
[2021-11-10] MEDS: PERCOCET 5MG/325MG TAB PO PRN ×3 (02:59→22:34)
[2021-11-10] MEDS: RAMELTEON 8 MG TAB (ROZEREM) PO PRN (03:06)
[2021-11-10 05:44] VITALS: BP 145/73
[2021-11-10 05:46] LABS: HEMATOCRIT 29.1 % (36.0-47.0); HEMOGLOBIN 9.8 g/dl (12.0-15.5); MEAN CORPUSCULAR HEMOGLOBIN 29.7 pg (27.0-33.0); MEAN CORPUSCULAR HGB CONC 33.7 g/dl (32.0-36.5); MEAN CORPUSCULAR VOLUME 88.2 fl (80.0-96.0); PLATELET COUNT, AUTOMATED 203 10^3/uL (150-450); WHITE BLOOD COUNT 6.2 10^3/uL (4.0-10.0)
[2021-11-10] MEDS: SODIUM CHLORIDE 0.9% INJ 10 ML SYR IV SCH ×2 (06:09→18:11)
[2021-11-10 06:15] LABS: BLOOD UREA NITROGEN 5 MG/DL (7-18); CALCIUM LEVEL 8.8 MG/DL (8.5-10.1); CARBON DIOXIDE LEVEL 25 MEQ/L (21-32); CHLORIDE LEVEL 101 MEQ/L (98-107); CREATININE FOR GFR 0.48 MG/DL (0.55-1.30); GLOMERULAR FILTRATION RATE > 60.0 (>51); GLUCOSE, FASTING 97 MG/DL (70-100); MAGNESIUM LEVEL 1.9 MG/DL (1.8-2.4); POTASSIUM SERUM 4.1 MEQ/L (3.5-5.1); SODIUM LEVEL 132 MEQ/L (136-145)
[2021-11-10] MEDS: METOPROLOL TART 25 MG TABLET PO SCH ×2 (09:05→20:45)
[2021-11-10] MEDS: SODIUM CHLORIDE 1 GM TAB PO SCH ×3 (09:05→20:42)
[2021-11-10] MEDS: LOSARTAN 50MG TABLET PO SCH (09:06)
[2021-11-10] MEDS: BACLOFEN 10 MG TAB PO SCH ×2 (09:06→20:42)
[2021-11-10] MEDS: DOCUSATE SODIUM 100MG CAPSULE PO SCH ×2 (09:06→20:41)
[2021-11-10] MEDS: amLODIPine 5 MG TAB PO SCH (09:07)
[2021-11-10] MEDS: MORPHINE 30 MG TAB **MSIR PO SCH ×2 (09:08→20:47)
[2021-11-10] MEDS: NICOTINE 7 MG/24 HR TRANSDERMAL TD SCH (09:08)
[2021-11-10] MEDS: ENOXAPARIN 40MG/0.4ML SYRINGE (J1650 PER 10MG) SC SCH (09:09)
[2021-11-10] MEDS: VANCOMYCIN HCL 1,000 MG, VIAL MATE ADAPTER 1 EACH in NS 250 ML IV SCH ×2 (09:09→20:44)
[2021-11-10] MEDS: POTASSIUM CHLORIDE 10MEQ SR TABLET PO SCH ×2 (09:15→20:44)
[2021-11-10] MEDS: SODIUM CHLORIDE 0.9% INJ 10 ML SYR IV PRN ×2 (11:10→22:30)
[2021-11-10] MEDS: FUROSEMIDE 10MG PER 1/2 TABLET PO SCH (15:16)
[2021-11-10] MEDS: ACETAMINOPHEN TAB 650MG DOSE (2X325MG) PO PRN (18:59)
[2021-11-10] MEDS: ATORVASTATIN 10 MG TAB PO SCH (20:47)
[2021-11-11] MEDS: RAMELTEON 8 MG TAB (ROZEREM) PO PRN ×2 (01:08→22:23)
[2021-11-11] MEDS: ACETAMINOPHEN TAB 650MG DOSE (2X325MG) PO PRN ×2 (03:40→18:27)
[2021-11-11] MEDS: PERCOCET 5MG/325MG TAB PO PRN ×3 (04:38→22:24)
[2021-11-11] MEDS: SODIUM CHLORIDE 0.9% INJ 10 ML SYR IV SCH ×2 (05:01→18:27)
[2021-11-11 06:00] VITALS: BP 122/78
[2021-11-11 06:34] LABS: BLOOD UREA NITROGEN 5 MG/DL (7-18); CALCIUM LEVEL 8.7 MG/DL (8.5-10.1); CARBON DIOXIDE LEVEL 24 MEQ/L (21-32); CHLORIDE LEVEL 102 MEQ/L (98-107); CREATININE FOR GFR 0.46 MG/DL (0.55-1.30); GLOMERULAR FILTRATION RATE > 60.0 (>51); GLUCOSE, FASTING 98 MG/DL (70-100); POTASSIUM SERUM 3.9 MEQ/L (3.5-5.1); SODIUM LEVEL 133 MEQ/L (136-145)
[2021-11-11] MEDS: BACLOFEN 10 MG TAB PO SCH ×2 (08:21→20:44)
[2021-11-11] MEDS: METOPROLOL TART 25 MG TABLET PO SCH ×2 (08:21→20:45)
[2021-11-11] MEDS: amLODIPine 5 MG TAB PO SCH (08:21)
[2021-11-11] MEDS: POTASSIUM CHLORIDE 10MEQ SR TABLET PO SCH ×2 (08:22→20:43)
[2021-11-11] MEDS: FUROSEMIDE 10MG PER 1/2 TABLET PO SCH (08:22)
[2021-11-11] MEDS: DOCUSATE SODIUM 100MG CAPSULE PO SCH ×2 (08:22→20:42)
[2021-11-11] MEDS: SODIUM CHLORIDE 1 GM TAB PO SCH ×3 (08:22→20:42)
[2021-11-11] MEDS: NICOTINE 7 MG/24 HR TRANSDERMAL TD SCH (08:23)
[2021-11-11] MEDS: ENOXAPARIN 40MG/0.4ML SYRINGE (J1650 PER 10MG) SC SCH (08:23)
[2021-11-11] MEDS: LOSARTAN 50MG TABLET PO SCH (08:23)
[2021-11-11] MEDS: MORPHINE 30 MG TAB **MSIR PO SCH ×2 (09:14→20:47)
[2021-11-11] MEDS: VANCOMYCIN HCL 1,000 MG, VIAL MATE ADAPTER 1 EACH in NS 250 ML IV SCH ×2 (09:15→20:47)
[2021-11-11] MEDS ORDERED: VANCOMYCIN HCL 500 MG in D5W MINI-BAG PLUS 100 ML IV ONE (12:00)
[2021-11-11] MEDS: SODIUM CHLORIDE 0.9% INJ 10 ML SYR IV PRN ×2 (12:57→22:15)
[2021-11-11] MEDS: hydrOXYzine 10 MG TAB PO PRN (13:14)
[2021-11-11] MEDS: ATORVASTATIN 10 MG TAB PO SCH (20:44)
[2021-11-12] MEDS: hydrOXYzine 10 MG TAB PO PRN (01:42)
[2021-11-12] MEDS: PERCOCET 5MG/325MG TAB PO PRN ×2 (04:51→14:02)
[2021-11-12] MEDS: SODIUM CHLORIDE 0.9% INJ 10 ML SYR IV SCH (05:50)
[2021-11-12 06:00] VITALS: BP 111/76
[2021-11-12 09:10] LABS: BLOOD UREA NITROGEN 5 MG/DL (7-18); CARBON DIOXIDE LEVEL 26 MEQ/L (21-32); CHLORIDE LEVEL 102 MEQ/L (98-107); CREATININE FOR GFR 0.52 MG/DL (0.55-1.30); GLOMERULAR FILTRATION RATE > 60.0 (>51); GLUCOSE, FASTING 98 MG/DL (70-100); POTASSIUM SERUM 3.7 MEQ/L (3.5-5.1); SODIUM LEVEL 135 MEQ/L (136-145)
[2021-11-12 09:11] LABS: CALCIUM LEVEL 9.2 MG/DL (8.5-10.1); VANCOMYCIN LEVEL TROUGH 19.3 UG/ML (10.0-20.0)
[2021-11-12] MEDS: ENOXAPARIN 40MG/0.4ML SYRINGE (J1650 PER 10MG) SC SCH (09:26)
[2021-11-12] MEDS: DOCUSATE SODIUM 100MG CAPSULE PO SCH (09:26)
[2021-11-12] MEDS: VANCOMYCIN HCL 1,000 MG, VIAL MATE ADAPTER 1 EACH in NS 250 ML IV SCH (09:26)
[2021-11-12 09:28] VITALS: BP 144/86
[2021-11-12] MEDS: amLODIPine 5 MG TAB PO SCH (09:28)
[2021-11-12] MEDS: MORPHINE 30 MG TAB **MSIR PO SCH (09:28)
[2021-11-12] MEDS: LOSARTAN 50MG TABLET PO SCH (09:29)
[2021-11-12] MEDS: POTASSIUM CHLORIDE 10MEQ SR TABLET PO SCH (09:29)
[2021-11-12] MEDS: FUROSEMIDE 10MG PER 1/2 TABLET PO SCH (09:29)
[2021-11-12] MEDS: METOPROLOL TART 25 MG TABLET PO SCH (09:30)
[2021-11-12] MEDS: BACLOFEN 10 MG TAB PO SCH (09:30)
[2021-11-12] MEDS: NICOTINE 7 MG/24 HR TRANSDERMAL TD SCH (09:31)
[2021-11-12] MEDS: SODIUM CHLORIDE 0.9% INJ 10 ML SYR IV PRN (11:29)
[2021-11-12] MEDS ORDERED: COZA50TA PO (12:50)
[2021-11-12] MEDS ORDERED: AMLO1TAB24 PO (12:50)
[2021-11-12] MEDS ORDERED: COLA100C5 PO (12:50)
[2021-11-12] MEDS ORDERED: FURO20TA2 PO (12:50)
[2021-11-12] MEDS ORDERED: METO1TAB87 PO (12:50)
[2021-11-12] MEDS ORDERED: POTA-136 PO (12:50)
== END 2021-11-12 14:47 | disposition home health service (06) | DRG 425 ==
LOC: M ICU 17:25 → M 4MAIN 11-04 12:12 → M MSPAV 11-08 17:52
PROVIDERS: ADMIT Internal Medicine Nephrology; ATTEND Family Medicine
PROC: 02HV33Z Insertion of Infusion Device into Superior Vena Cava, Percutaneous Approach (ICD-10-PCS; principal; 2021-11-05 15:28)
PROC: 02HV33Z Insertion of Infusion Device into Superior Vena Cava, Percutaneous Approach (ICD-10-PCS; 2021-11-08)
DX: E87.1 Hypo-osmolality and hyponatremia (principal); U07.1 COVID-19; I33.0 Acute and subacute infective endocarditis; G92.8 Other toxic encephalopathy; R78.81 Bacteremia; E46 Unspecified protein-calorie malnutrition; E83.42 Hypomagnesemia; E87.6 Hypokalemia; F17.200 Nicotine dependence, unspecified, uncomplicated; Z79.899 Other long term (current) drug therapy; Z88.0 Allergy status to penicillin; Z91.018 Allergy to other foods; Z88.8 Allergy status to other drugs, medicaments and biological substances; E78.5 Hyperlipidemia, unspecified; J44.9 Chronic obstructive pulmonary disease, unspecified; I10 Essential (primary) hypertension; R91.8 Other nonspecific abnormal finding of lung field; T50.7X5A Adverse effect of analeptics and opioid receptor antagonists, initial encounter

== ENCOUNTER → 2021-11-19 | Outpatient (REF) | payer OTHER ==
[~2021-11-19] MED LIST changes: +ACET-683 PO; +AMLO1TAB24 PO; +ASPI-1 PO; +BENA25CA4 PO; +CELE100C PO; +COZA50TA PO; +DOCU100C16 PO; +FURO20TA2 PO; +LIDO5TD TD; +LOSA100T45 PO; +LOSA50TA28 PO; +METO1TAB87 PO; +METO25TA4 PO; +NALO25TA PO; +NICO14PA TD; +NICO7DIS24 TOP; +NICO7PA TD; +OLAN5ZYD PO; +OMEP-173 PO; +POTA-136 PO; +POTA-149 PO; +POTA-151 PO; +POTA1TAB14 PO; +PRED10TA2 PO; +TRAM50TA2 PO; +TRAZ-252 PO; +VANC1PLA6 IV; +VANCOMYCIN
[2021-11-19 16:19] LABS: HEMATOCRIT 34.7 % (36.0-47.0); HEMOGLOBIN 11.4 g/dl (12.0-15.5); MEAN CORPUSCULAR HEMOGLOBIN 30.2 pg (27.0-33.0); MEAN CORPUSCULAR HGB CONC 32.9 g/dl (32.0-36.5); MEAN CORPUSCULAR VOLUME 91.8 fl (80.0-96.0); PLATELET COUNT, AUTOMATED 202 10^3/uL (150-450); RED BLOOD COUNT 3.78 10^6/uL (4.00-5.40); WHITE BLOOD COUNT 4.1 10^3/uL (4.0-10.0)
[2021-11-19 16:52] LABS: BLOOD UREA NITROGEN 13 MG/DL (7-18); C REACTIVE PROTEIN QUANTITATIV 0.66 MG/DL (0.00-0.30); CARBON DIOXIDE LEVEL 25 MEQ/L (21-32); CHLORIDE LEVEL 98 MEQ/L (98-107); CREATININE FOR GFR 0.63 MG/DL (0.55-1.30); GLOMERULAR FILTRATION RATE > 60.0 (>51); GLUCOSE, FASTING 90 MG/DL (70-100); POTASSIUM SERUM 4.8 MEQ/L (3.5-5.1); SODIUM LEVEL 131 MEQ/L (136-145)
[2021-11-19 18:26] LABS: VANCOMYCIN LEVEL TROUGH 29.3 UG/ML (10.0-20.0)
== END ==
LOC: M SHH 15:40
PROVIDERS: ATTEND Internal Medicine Infectious Disease
DX: I33.0 Acute and subacute infective endocarditis (principal); R78.81 Bacteremia; I10 Essential (primary) hypertension

== ENCOUNTER 2021-11-23 15:54 | Inpatient (IN) | payer OTHER ==
[~2021-11-23] VITALS: Ht 157.5 cm; Wt 47.5 kg
[~2021-11-23 15:54] MED LIST changes: -ACET-683 PO; -ASPI-1 PO; -BENA25CA4 PO; -DOCU100C16 PO; -LIDO5TD TD; -LOSA100T45 PO; -LOSA50TA28 PO; -METO25TA4 PO; -NICO14PA TD; -NICO7DIS24 TOP; -NICO7PA TD; -OLAN5ZYD PO; -OMEP-173 PO; -POTA-149 PO; -POTA-151 PO; -POTA1TAB14 PO; -PRED10TA2 PO; -TRAM50TA2 PO; -TRAZ-252 PO; -VANC1PLA6 IV; -VANCOMYCIN
[2021-11-23] MEDS ORDERED: NALOXONE INJ 0.4MG/1ML VIAL (J2310 PER 1MG) IV PRN (16:45)
[2021-11-23] MEDS ORDERED: NS 1,000 ML IV ONE (16:45)
[2021-11-23 17:42] LABS: BASO # 0.1 10^3/uL (0.0-0.2); EOS # 0.2 10^3/uL (0.0-0.5); EOS % 3.8 % (0.0-3.0); HEMATOCRIT 36.3 % (36.0-47.0); HEMOGLOBIN 11.8 g/dl (12.0-15.5); LYMPH # 1.3 10^3/uL (1.5-5.0); MEAN CORPUSCULAR HEMOGLOBIN 30.5 pg (27.0-33.0); MEAN CORPUSCULAR HGB CONC 32.5 g/dl (32.0-36.5); MEAN CORPUSCULAR VOLUME 93.8 fl (80.0-96.0); MONO # 0.6 10^3/uL (0.0-0.8); MONO % 12.2 % (2.0-8.0); NEUTROPHILS # 2.8 10^3/uL (1.5-8.5); NEUTROPHILS % 56.6 % (36.0-66.0); PLATELET COUNT, AUTOMATED 242 10^3/uL (150-450); RED BLOOD COUNT 3.87 10^6/uL (4.00-5.40)
[2021-11-23 17:45] LABS: ABG BASE EXCESS 0.9 (-2.0-2.0); ABG O2 SATURATION 92.6 % (95.0-99.0); ABG PARTIAL PRESSURE CO2 43.2 mmHg (35.0-45.0); ABG PARTIAL PRESSURE O2 64.2 mmHg (75.0-100.0); ABG STANDARD HCO3 25.2 MEQ/L (22.0-26.0); ABG TOTAL CO2 27.3 MEQ/L (22.0-29.0); ABG pH (ARTERIAL) 7.397 UNITS (7.350-7.450)
[2021-11-23 18:17] LABS: CK-MB VALUE MASS 1.9 NG/ML (<3.6); MB/CK RELATIVE INDEX 3.02 (< OR =4)
[2021-11-23 18:23] LABS: ACETAMINOPHEN LEVEL < 2.0 UG/ML (10.0-30.0); ALBUMIN 3.4 GM/DL (3.2-5.2); ALT/SGPT 28 U/L (12-78); BILIRUBIN,DIRECT < 0.1 MG/DL (0.0-0.2); BILIRUBIN,TOTAL 0.3 MG/DL (0.2-1.0); BLOOD UREA NITROGEN 9 MG/DL (7-18); CALCIUM LEVEL 9.5 MG/DL (8.5-10.1); CARBON DIOXIDE LEVEL 27 MEQ/L (21-32); CHLORIDE LEVEL 104 MEQ/L (98-107); ETHYL ALCOHOL (ETHANOL) < 0.003 % (0.000-0.010); GLOMERULAR FILTRATION RATE > 60.0 (>51); GLUCOSE, FASTING 92 MG/DL (70-100); POTASSIUM SERUM 5.8 MEQ/L (3.5-5.1); SALICYLATE LEVEL 2.5 MG/DL (5.0-30.0); SODIUM LEVEL 135 MEQ/L (136-145); TOTAL PROTEIN 7.2 GM/DL (6.4-8.2)
[2021-11-23 18:39] LABS: OSMOLALITY SERUM 282 MOSM/KG (275-295)
[2021-11-23 20:05] LABS: AMPHETAMINES LEVEL URINE NEGATIVE (NEGATIVE); BARBITURATES URINE NEGATIVE (NEGATIVE); BENZODIAZEPINES URINE NEGATIVE (NEGATIVE); CANNABINOIDS URINE NEGATIVE (NEGATIVE); COCAINE METABOLITE URINE NEGATIVE (NEGATIVE); METHADONE URINE NEGATIVE (NEGATIVE); OPIATES URINE POSITIVE (NEGATIVE); PHENCYCLIDINE URINE NEGATIVE (NEGATIVE)
[2021-11-23] MEDS ORDERED: DULoxetine 30MG CAPSULE (CYMBALTA) PO SCH (21:00)
[2021-11-23] MEDS ORDERED: ATORVASTATIN 10 MG TAB PO SCH (21:00)
[2021-11-23] MEDS ORDERED: ONDANSETRON 4MG/2ML VIAL IV ONE (21:05)
[2021-11-23] MEDS ORDERED: ACETAMINOPHEN TAB 650MG DOSE (2X325MG) PO PRN (21:20)
[2021-11-23] MEDS ORDERED: MOM 30ML SUSPENSION UDC PO PRN (21:20)
[2021-11-23] MEDS ORDERED: SOD POLYSTYRENE SULFONATE SUSP 15 GM/60 ML UD PO ONE (21:20)
[2021-11-23] MEDS ORDERED: MAALOX 30 ML SUSP *UDC PO PRN (21:20)
[2021-11-23] MEDS ORDERED: POTA-149 PO (21:55)
[2021-11-23] MEDS ORDERED: FURO20TA2 PO (21:55)
[2021-11-23] MEDS ORDERED: TRAZ-252 PO (21:55)
[2021-11-23] MEDS ORDERED: METO25TA4 PO (21:55)
[2021-11-23] MEDS ORDERED: BENA25CA4 PO (21:55)
[2021-11-23] MEDS ORDERED: ACET-683 PO (21:55)
[2021-11-23] MEDS ORDERED: DOCU100C16 PO (21:55)
[2021-11-23] MEDS ORDERED: LOSA50TA28 PO (21:55)
[2021-11-23] MEDS ORDERED: VANCOMYCIN (21:55)
[2021-11-23] MEDS ORDERED: AMLO1TAB24 PO (21:55)
[2021-11-23] MEDS ORDERED: VANC1PLA6 IV (21:58)
[2021-11-23] MEDS ORDERED: HOME MED LIST COMPLETE! XX SCH (22:00)
[2021-11-23] MEDS ORDERED: ISOVUE-370 76% 100ML VIAL As Ordered ONE (22:27)
[2021-11-24 00:50] VITALS: BP 123/67
[2021-11-24] MEDS ORDERED: SODIUM CHLORIDE 0.9% INJ 10 ML SYR IV PRN (01:50)
[2021-11-24] MEDS ORDERED: PILL CUTTER 1 EACH XX PRN (02:10)
[2021-11-24] MEDS: SODIUM CHLORIDE 0.9% INJ 10 ML SYR IV SCH ×2 (05:06→12:54)
[2021-11-24] MEDS: HEPARIN SOD (PORCINE) 5000UNITS/ML 1ML VIAL/SYRINGE SC SCH ×2 (05:06→13:44)
[2021-11-24 06:00] VITALS: BP 129/71
[2021-11-24 06:39] LABS: BASO # 0.1 10^3/uL (0.0-0.2); BASO % 2.4 % (0.0-1.0); EOS # 0.2 10^3/uL (0.0-0.5); EOS % 4.7 % (0.0-3.0); HEMOGLOBIN 10.4 g/dl (12.0-15.5); LYMPH # 1.6 10^3/uL (1.5-5.0); LYMPH % 38.4 % (24.0-44.0); MEAN CORPUSCULAR HEMOGLOBIN 30.1 pg (27.0-33.0); MEAN CORPUSCULAR HGB CONC 32.5 g/dl (32.0-36.5); MEAN CORPUSCULAR VOLUME 92.8 fl (80.0-96.0); MONO # 0.7 10^3/uL (0.0-0.8); MONO % 15.8 % (2.0-8.0); NEUTROPHILS # 1.6 10^3/uL (1.5-8.5); NEUTROPHILS % 38.5 % (36.0-66.0); PLATELET COUNT, AUTOMATED 234 10^3/uL (150-450); RED BLOOD COUNT 3.45 10^6/uL (4.00-5.40); WHITE BLOOD COUNT 4.3 10^3/uL (4.0-10.0)
[2021-11-24 07:04] LABS: ALT/SGPT 24 U/L (12-78); BILIRUBIN,TOTAL 0.3 MG/DL (0.2-1.0); BLOOD UREA NITROGEN 8 MG/DL (7-18); CALCIUM LEVEL 8.9 MG/DL (8.5-10.1); CARBON DIOXIDE LEVEL 26 MEQ/L (21-32); CHLORIDE LEVEL 104 MEQ/L (98-107); CREATININE FOR GFR 0.86 MG/DL (0.55-1.30); GLOMERULAR FILTRATION RATE > 60.0 (>51); GLUCOSE, FASTING 89 MG/DL (70-100); SODIUM LEVEL 138 MEQ/L (136-145); TOTAL PROTEIN 6.9 GM/DL (6.4-8.2)
[2021-11-24 07:10] LABS: POTASSIUM SERUM 3.4 MEQ/L (3.5-5.1)
[2021-11-24] MEDS ORDERED: amLODIPine 5 MG TAB PO SCH (09:00)
[2021-11-24] MEDS ORDERED: FUROSEMIDE 20 MG TAB PO SCH (09:00)
[2021-11-24] MEDS ORDERED: LOSARTAN 50MG TABLET PO SCH (09:00)
[2021-11-24] MEDS ORDERED: VANCOMYCIN HCL 750 MG, VIAL MATE ADAPTER 1 EACH in NS 250 ML IV SCH (09:00)
[2021-11-24] MEDS ORDERED: POTASSIUM CHLORIDE 10MEQ SR TABLET PO ONE (09:00)
[2021-11-24] MEDS ORDERED: METOPROLOL TART 12.5 MG PER 1/2 TAB PO SCH (09:00)
[2021-11-24] MEDS ORDERED: DOCUSATE SODIUM 100MG CAPSULE PO SCH (09:00)
[2021-11-24] MEDS ORDERED: VANCOMYCIN HCL 1,000 MG, VIAL MATE ADAPTER 1 EACH in NS 250 ML IV SCH (09:00)
[2021-11-24 09:01] VITALS: BP 133/80
[2021-11-24] MEDS ORDERED: POTA-151 PO (09:24)
[2021-11-24] MEDS ORDERED: LORazepam 2 MG/ML VIAL As Ordered ONE (09:56)
[2021-11-24] MEDS ORDERED: LORazepam 2 MG/ML VIAL IV ONE (10:00)
[2021-11-24] MEDS ORDERED: PROHANCE 279.3MG/ML 5ML VIAL As Ordered ONE (10:48)
[2021-11-24 19:37] LABS: MAGNESIUM LEVEL 1.8 MG/DL (1.7-2.2)
[2021-11-25] MEDS ORDERED: FUROSEMIDE 10MG PER 1/2 TABLET PO SCH (09:00)
== END 2021-11-24 13:47 | disposition home health service (06) | DRG 52 ==
LOC: M ED 15:54 → EDBD 15:54 → M ED INP 21:16 → M MSPAV 11-24 01:00
PROVIDERS: ADMIT Family Medicine; ATTEND Family Medicine
DX: G92.8 Other toxic encephalopathy (principal); E87.1 Hypo-osmolality and hyponatremia; I10 Essential (primary) hypertension; E87.5 Hyperkalemia; T40.2X5A Adverse effect of other opioids, initial encounter; R91.1 Solitary pulmonary nodule; E78.5 Hyperlipidemia, unspecified; M54.9 Dorsalgia, unspecified; I05.9 Rheumatic mitral valve disease, unspecified; J44.9 Chronic obstructive pulmonary disease, unspecified; F32.A Depression, unspecified; Z86.16 Personal history of COVID-19; Z90.79 Acquired absence of other genital organ(s); Z90.49 Acquired absence of other specified parts of digestive tract; Z98.1 Arthrodesis status; F17.200 Nicotine dependence, unspecified, uncomplicated; Z79.2 Long term (current) use of antibiotics; Z79.899 Other long term (current) drug therapy; Z88.0 Allergy status to penicillin; Z88.1 Allergy status to other antibiotic agents; Z88.8 Allergy status to other drugs, medicaments and biological substances; Z91.018 Allergy to other foods

== ENCOUNTER → 2021-11-26 | Outpatient (REF) | payer OTHER ==
[~2021-11-26] MED LIST changes: +ACET-683 PO; +BENA25CA4 PO; +DOCU100C16 PO; +LOSA50TA28 PO; +METO25TA4 PO; +POTA-149 PO; +POTA-151 PO; +TRAZ-252 PO; +VANC1PLA6 IV; +VANCOMYCIN
[2021-11-26 19:17] LABS: BLOOD UREA NITROGEN 6 MG/DL (7-18); C REACTIVE PROTEIN QUANTITATIV 1.09 MG/DL (0.00-0.30); CARBON DIOXIDE LEVEL 28 MEQ/L (21-32); CHLORIDE LEVEL 101 MEQ/L (98-107); CREATININE FOR GFR 0.61 MG/DL (0.55-1.30); GLOMERULAR FILTRATION RATE > 60.0 (>51); GLUCOSE, FASTING 119 MG/DL (70-100); POTASSIUM SERUM 3.3 MEQ/L (3.5-5.1); SODIUM LEVEL 137 MEQ/L (136-145); VANCOMYCIN LEVEL TROUGH 22.3 UG/ML (10.0-20.0)
== END ==
LOC: M SHH 15:30
PROVIDERS: ATTEND Internal Medicine Infectious Disease
DX: I33.0 Acute and subacute infective endocarditis (principal); R78.81 Bacteremia; I10 Essential (primary) hypertension

== ENCOUNTER → 2021-11-28 | Outpatient (REF) | payer OTHER ==
[2021-11-28 17:12] LABS: HEMOGLOBIN 10.2 g/dl (12.0-15.5); MEAN CORPUSCULAR HEMOGLOBIN 30.7 pg (27.0-33.0); MEAN CORPUSCULAR HGB CONC 32.9 g/dl (32.0-36.5); MEAN CORPUSCULAR VOLUME 93.4 fl (80.0-96.0); PLATELET COUNT, AUTOMATED 221 10^3/uL (150-450); RED BLOOD COUNT 3.32 10^6/uL (4.00-5.40)
[2021-11-28 17:44] LABS: BLOOD UREA NITROGEN 9 MG/DL (7-18); C REACTIVE PROTEIN QUANTITATIV 4.78 MG/DL (0.00-0.30); CALCIUM LEVEL 8.6 MG/DL (8.5-10.1); CARBON DIOXIDE LEVEL 26 MEQ/L (21-32); CHLORIDE LEVEL 99 MEQ/L (98-107); GLOMERULAR FILTRATION RATE > 60.0 (>51); GLUCOSE, FASTING 93 MG/DL (70-100); POTASSIUM SERUM 3.1 MEQ/L (3.5-5.1); SODIUM LEVEL 135 MEQ/L (136-145); VANCOMYCIN RANDOM 19.8 UG/ML
== END ==
LOC: M LABDRWCV 15:30
PROVIDERS: ATTEND Internal Medicine Infectious Disease
DX: I33.0 Acute and subacute infective endocarditis (principal); R78.81 Bacteremia; I10 Essential (primary) hypertension

== ENCOUNTER → 2021-11-28 | Outpatient (REF) | payer OTHER | LOC: M SFHCCAPE 11:58 | PROVIDERS: ATTEND Physician Assistant | DX: R30.0 Dysuria (principal) ==

== ENCOUNTER 2021-12-06 07:59 | Inpatient (IN) | payer OTHER ==
[~2021-12-06] VITALS: Ht 160 cm; Wt 49.0 kg
[2021-12-06 08:51] LABS: BASO # 0.1 10^3/uL (0.0-0.2); BASO % 1.7 % (0.0-1.0); EOS # 0.3 10^3/uL (0.0-0.5); EOS % 3.6 % (0.0-3.0); HEMATOCRIT 34.7 % (36.0-47.0); HEMOGLOBIN 11.4 g/dl (12.0-15.5); LYMPH # 1.7 10^3/uL (1.5-5.0); LYMPH % 21.1 % (24.0-44.0); MEAN CORPUSCULAR HEMOGLOBIN 30.6 pg (27.0-33.0); MEAN CORPUSCULAR HGB CONC 32.9 g/dl (32.0-36.5); MEAN CORPUSCULAR VOLUME 93.3 fl (80.0-96.0); MONO # 0.8 10^3/uL (0.0-0.8); MONO % 9.1 % (2.0-8.0); NEUTROPHILS # 5.3 10^3/uL (1.5-8.5); NEUTROPHILS % 63.7 % (36.0-66.0); PLATELET COUNT, AUTOMATED 328 10^3/uL (150-450); RED BLOOD COUNT 3.72 10^6/uL (4.00-5.40); WHITE BLOOD COUNT 8.3 10^3/uL (4.0-10.0)
[2021-12-06] MEDS ORDERED: NS 1,000 ML IV SCH (08:55)
[2021-12-06 09:28] LABS: RSV AMPLIFICATION NEGATIVE (NEGATIVE)
[2021-12-06 09:33] LABS: ACETAMINOPHEN LEVEL < 2.0 UG/ML (10.0-30.0); ALBUMIN 3.4 GM/DL (3.2-5.2); ALT/SGPT 30 U/L (12-78); BILIRUBIN,DIRECT < 0.1 MG/DL (0.0-0.2); BILIRUBIN,TOTAL 0.4 MG/DL (0.2-1.0); BLOOD UREA NITROGEN 15 MG/DL (7-18); CALCIUM LEVEL 9.2 MG/DL (8.5-10.1); CARBON DIOXIDE LEVEL 25 MEQ/L (21-32); CHLORIDE LEVEL 103 MEQ/L (98-107); CREATININE FOR GFR 0.71 MG/DL (0.55-1.30); ETHYL ALCOHOL (ETHANOL) < 0.003 % (0.000-0.010); GLOMERULAR FILTRATION RATE > 60.0 (>51); GLUCOSE, FASTING 88 MG/DL (70-100); POTASSIUM SERUM 4.3 MEQ/L (3.5-5.1); SODIUM LEVEL 137 MEQ/L (136-145); TOTAL PROTEIN 7.2 GM/DL (6.4-8.2)
[2021-12-06 10:24] LABS: OSMOLALITY SERUM 283 MOSM/KG (275-295)
[2021-12-06] MEDS ORDERED: POTA1TAB14 PO (10:44)
[2021-12-06] MEDS ORDERED: LOSA100T45 PO (10:44)
[2021-12-06] MEDS ORDERED: HOME MED LIST COMPLETE! XX SCH (10:45)
[2021-12-06] MEDS ORDERED: NICO7DIS24 TOP (10:45)
[2021-12-06 10:46] LABS: AMPHETAMINES LEVEL URINE NEGATIVE (NEGATIVE); BARBITURATES URINE NEGATIVE (NEGATIVE); BENZODIAZEPINES URINE NEGATIVE (NEGATIVE); CANNABINOIDS URINE NEGATIVE (NEGATIVE); COCAINE METABOLITE URINE NEGATIVE (NEGATIVE); METHADONE URINE NEGATIVE (NEGATIVE); OPIATES URINE POSITIVE (NEGATIVE); PHENCYCLIDINE URINE NEGATIVE (NEGATIVE)
[2021-12-06 12:53] LABS: VENOUS BASE EXCESS 0.8 (-2.0-2.0); VENOUS HCO3 26.5 MEQ/L (23.0-27.0); VENOUS O2 SATURATION 89.6 % (60.0-80.0); VENOUS PARTIAL PRESSURE CO2 46.3 mmHg (38.0-50.0); VENOUS PH 7.375 UNITS (7.330-7.430); VENOUS TOTAL CO2 27.9 MEQ/L (24.0-28.0)
[2021-12-06] MEDS ORDERED: MOM 30ML SUSPENSION UDC PO PRN (12:55)
[2021-12-06] MEDS ORDERED: MAALOX 30 ML SUSP *UDC PO PRN (12:55)
[2021-12-06 14:20] LABS: C REACTIVE PROTEIN QUANTITATIV < 0.30 MG/DL (0.00-0.30)
[2021-12-06 14:24] LABS: ERYTHROCYTE SEDIMENTATION RATE 30 mm/hr (0-30)
[2021-12-06 14:45] VITALS: BP 137/73
[2021-12-06] MEDS ORDERED: ASPIRIN 325 MG TAB PO ONE (14:45)
[2021-12-06 15:59] LABS: CK-MB VALUE MASS 3.6 NG/ML (<3.6); MB/CK RELATIVE INDEX 3.21 (< OR =4)
[2021-12-06 16:00] VITALS: BP 139/72
[2021-12-06] MEDS: ACETAMINOPHEN TAB 650MG DOSE (2X325MG) PO PRN (17:53)
[2021-12-06] MEDS ORDERED: LORazepam 2 MG/ML VIAL IV STA (19:33)
[2021-12-06 20:55] VITALS: BP 152/68
[2021-12-06] MEDS ORDERED: OLANZapine INTRAMUSCULAR 10MG VIAL IM ONE (21:45)
[2021-12-07] VITALS: BP 141/66
[2021-12-07] MEDS ORDERED: OLANZapine INTRAMUSCULAR 10MG VIAL IM ONE (00:15)
[2021-12-07] MEDS: ACETAMINOPHEN TAB 650MG DOSE (2X325MG) PO PRN ×2 (01:58→12:44)
[2021-12-07] MEDS ORDERED: HALOPERIDOL 5MG/ML VIAL (J1630 PER 1) IM ONE (02:45)
[2021-12-07 04:10] VITALS: BP 147/76
[2021-12-07] MEDS: NS 1,000 ML IV SCH ×2 (04:49→05:53)
[2021-12-07 07:52] VITALS: BP 143/67
[2021-12-07 09:48] LABS: BASO # 0.1 10^3/uL (0.0-0.2); BASO % 2.3 % (0.0-1.0); EOS # 0.2 10^3/uL (0.0-0.5); EOS % 4.7 % (0.0-3.0); HEMATOCRIT 32.7 % (36.0-47.0); HEMOGLOBIN 10.6 g/dl (12.0-15.5); LYMPH # 1.5 10^3/uL (1.5-5.0); LYMPH % 30.1 % (24.0-44.0); MEAN CORPUSCULAR HEMOGLOBIN 30.7 pg (27.0-33.0); MEAN CORPUSCULAR HGB CONC 32.4 g/dl (32.0-36.5); MEAN CORPUSCULAR VOLUME 94.8 fl (80.0-96.0); MONO # 0.6 10^3/uL (0.0-0.8); MONO % 11.3 % (2.0-8.0); NEUTROPHILS # 2.5 10^3/uL (1.5-8.5); PLATELET COUNT, AUTOMATED 334 10^3/uL (150-450); RED BLOOD COUNT 3.45 10^6/uL (4.00-5.40); WHITE BLOOD COUNT 4.9 10^3/uL (4.0-10.0)
[2021-12-07 10:32] LABS: ALBUMIN 3.1 GM/DL (3.2-5.2); ALT/SGPT 31 U/L (12-78); BILIRUBIN,TOTAL 0.3 MG/DL (0.2-1.0); BLOOD UREA NITROGEN 11 MG/DL (7-18); CARBON DIOXIDE LEVEL 26 MEQ/L (21-32); CHLORIDE LEVEL 106 MEQ/L (98-107); CREATININE FOR GFR 0.73 MG/DL (0.55-1.30); GLOMERULAR FILTRATION RATE > 60.0 (>51); GLUCOSE, FASTING 92 MG/DL (70-100); MAGNESIUM LEVEL 2.1 MG/DL (1.8-2.4); POTASSIUM SERUM 3.6 MEQ/L (3.5-5.1); SODIUM LEVEL 140 MEQ/L (136-145)
[2021-12-07 12:00] VITALS: BP 149/73
[2021-12-07 16:00] VITALS: BP 153/71
[2021-12-07] MEDS ORDERED: NICOTINE 14 MG/24 HR TRANSDERMAL TD SCH (16:00)
== END 2021-12-07 18:26 | DRG 861 ==
LOC: EDBD 07:59 → M ED 07:59 → M ED INP 12:53 → ENRESERV 13:34 → M PCU 14:41
PROVIDERS: ADMIT Family Medicine; ATTEND Family Medicine
DX: R41.82 Altered mental status, unspecified (principal); I33.0 Acute and subacute infective endocarditis; R45.851 Suicidal ideations; J44.9 Chronic obstructive pulmonary disease, unspecified; R91.1 Solitary pulmonary nodule; E78.5 Hyperlipidemia, unspecified; M54.9 Dorsalgia, unspecified; Z20.822 Contact with and (suspected) exposure to COVID-19; Z79.899 Other long term (current) drug therapy; Z88.0 Allergy status to penicillin; Z88.1 Allergy status to other antibiotic agents; Z88.8 Allergy status to other drugs, medicaments and biological substances; Z91.018 Allergy to other foods; F17.200 Nicotine dependence, unspecified, uncomplicated; I10 Essential (primary) hypertension; F32.A Depression, unspecified; Z90.79 Acquired absence of other genital organ(s); Z90.49 Acquired absence of other specified parts of digestive tract; Z86.16 Personal history of COVID-19

== ENCOUNTER 2021-12-07 16:16 | Inpatient (IN) | payer OTHER ==
[~2021-12-07] VITALS: Ht 157.5 cm; Wt 47.9 kg
[~2021-12-07 16:16] MED LIST changes: +LOSA100T45 PO; +NICO7DIS24 TOP; +POTA1TAB14 PO
[2021-12-07] MEDS ORDERED: MOM 30ML SUSPENSION UDC PO PRN (16:20)
[2021-12-07 18:26] VITALS: BP 156/95
[2021-12-07] MEDS ORDERED: HOME MED LIST COMPLETE! XX SCH (18:45)
[2021-12-07] MEDS: NICOTINE 21MG/24HR 1 EA TRANSDERMAL TD SCH (19:35)
[2021-12-07] MEDS: ACETAMINOPHEN TAB 650MG DOSE (2X325MG) PO PRN (19:39)
[2021-12-07] MEDS: GABAPENTIN 300 MG CAP PO SCH (21:03)
[2021-12-07] MEDS: traZODone 50 MG TAB PO PRN (21:03)
[2021-12-07] MEDS: MAALOX 30 ML SUSP *UDC PO PRN (21:57)
[2021-12-08] MEDS: OLANZapine ORAL DISINTEGRATING TAB 5MG PO PRN (01:02)
[2021-12-08] MEDS: ACETAMINOPHEN TAB 650MG DOSE (2X325MG) PO PRN ×2 (01:40→17:59)
[2021-12-08 06:14] VITALS: BP 115/58
[2021-12-08] MEDS: GABAPENTIN 300 MG CAP PO SCH ×2 (08:38→20:58)
[2021-12-08] MEDS: ASPIRIN 325 MG TAB PO SCH (08:38)
[2021-12-08] MEDS: NICOTINE 21MG/24HR 1 EA TRANSDERMAL TD SCH (08:46)
[2021-12-08] MEDS: NICOTINE 14 MG/24 HR TRANSDERMAL TD PRN (11:44)
[2021-12-08] MEDS: SERTRALINE HCL 50 MG TAB PO SCH (11:44)
[2021-12-08 16:15] VITALS: BP 132/69
[2021-12-08] MEDS: traZODone 50 MG TAB PO PRN (20:58)
[2021-12-08] MEDS ORDERED: LOPERAMIDE 2 MG CAPLET PO PRN (23:10)
[2021-12-09 06:32] VITALS: BP 147/79
[2021-12-09] MEDS: ASPIRIN 325 MG TAB PO SCH (08:37)
[2021-12-09] MEDS: SERTRALINE HCL 50 MG TAB PO SCH (08:38)
[2021-12-09] MEDS: GABAPENTIN 300 MG CAP PO SCH ×2 (08:38→20:04)
[2021-12-09] MEDS: NICOTINE 14 MG/24 HR TRANSDERMAL TD PRN (08:39)
[2021-12-09] MEDS: DOCUSATE SODIUM 100MG CAPSULE PO SCH ×2 (12:59→20:04)
[2021-12-09] MEDS: amLODIPine 5 MG TAB PO SCH (13:01)
[2021-12-09] MEDS: ACETAMINOPHEN TAB 650MG DOSE (2X325MG) PO PRN (15:05)
[2021-12-09] MEDS: FUROSEMIDE 10MG PER 1/2 TABLET PO SCH (15:09)
[2021-12-09] MEDS: POTASSIUM CHLORIDE 10MEQ SR TABLET PO SCH (16:04)
[2021-12-09 16:12] VITALS: BP 145/74
[2021-12-09] MEDS: OMEPRAZOLE 20MG CAP PO SCH (20:04)
[2021-12-09] MEDS: traZODone 25MG PER 1/2 TABLET PO PRN (20:04)
[2021-12-09] MEDS: OLANZapine ORAL DISINTEGRATING TAB 5MG PO PRN (20:04)
[2021-12-09] MEDS: METOPROLOL TART 12.5 MG PER 1/2 TAB PO SCH (20:04)
[2021-12-09] MEDS: ATORVASTATIN 10 MG TAB PO SCH (20:04)
[2021-12-10] MEDS: ACETAMINOPHEN TAB 650MG DOSE (2X325MG) PO PRN ×3 (00:48→22:59)
[2021-12-10 06:25] VITALS: BP 130/59
[2021-12-10] MEDS: NICOTINE 14 MG/24 HR TRANSDERMAL TD PRN (08:43)
[2021-12-10] MEDS: ASPIRIN 325 MG TAB PO SCH (08:43)
[2021-12-10] MEDS: DOCUSATE SODIUM 100MG CAPSULE PO SCH ×2 (08:44→20:53)
[2021-12-10] MEDS: GABAPENTIN 300 MG CAP PO SCH ×2 (08:44→20:51)
[2021-12-10] MEDS: POTASSIUM CHLORIDE 10MEQ SR TABLET PO SCH ×2 (08:44→16:21)
[2021-12-10] MEDS: FUROSEMIDE 10MG PER 1/2 TABLET PO SCH (08:44)
[2021-12-10] MEDS: SERTRALINE HCL 50 MG TAB PO SCH (08:44)
[2021-12-10] MEDS: amLODIPine 5 MG TAB PO SCH (08:45)
[2021-12-10] MEDS: METOPROLOL TART 12.5 MG PER 1/2 TAB PO SCH ×2 (08:46→20:52)
[2021-12-10] MEDS: OLANZapine ORAL DISINTEGRATING TAB 5MG PO PRN ×2 (13:37→23:00)
[2021-12-10 18:25] VITALS: BP 124/70
[2021-12-10] MEDS: ATORVASTATIN 10 MG TAB PO SCH (20:51)
[2021-12-10] MEDS: OMEPRAZOLE 20MG CAP PO SCH (20:53)
[2021-12-11 07:26] VITALS: BP 140/66
[2021-12-11] MEDS: amLODIPine 5 MG TAB PO SCH (08:24)
[2021-12-11] MEDS: FUROSEMIDE 10MG PER 1/2 TABLET PO SCH (08:25)
[2021-12-11] MEDS: SERTRALINE HCL 50 MG TAB PO SCH (08:25)
[2021-12-11] MEDS: POTASSIUM CHLORIDE 10MEQ SR TABLET PO SCH ×2 (08:25→15:45)
[2021-12-11] MEDS: GABAPENTIN 300 MG CAP PO SCH ×2 (08:26→20:25)
[2021-12-11] MEDS: DOCUSATE SODIUM 100MG CAPSULE PO SCH ×2 (08:26→20:25)
[2021-12-11] MEDS: ASPIRIN 325 MG TAB PO SCH (08:26)
[2021-12-11] MEDS: METOPROLOL TART 12.5 MG PER 1/2 TAB PO SCH ×2 (08:26→20:27)
[2021-12-11] MEDS: ACETAMINOPHEN TAB 650MG DOSE (2X325MG) PO PRN (12:45)
[2021-12-11] MEDS: OLANZapine ORAL DISINTEGRATING TAB 5MG PO PRN (16:51)
[2021-12-11 18:48] VITALS: BP 133/58
[2021-12-11] MEDS: OMEPRAZOLE 20MG CAP PO SCH (20:25)
[2021-12-11] MEDS: traZODone 25MG PER 1/2 TABLET PO PRN (20:25)
[2021-12-11] MEDS: ATORVASTATIN 10 MG TAB PO SCH (20:25)
[2021-12-12] MEDS: OLANZapine ORAL DISINTEGRATING TAB 5MG PO PRN (00:35)
[2021-12-12] MEDS: ACETAMINOPHEN TAB 650MG DOSE (2X325MG) PO PRN (00:35)
[2021-12-12 06:32] VITALS: BP 120/64
[2021-12-12] MEDS: POTASSIUM CHLORIDE 10MEQ SR TABLET PO SCH ×2 (09:02→15:40)
[2021-12-12] MEDS: DOCUSATE SODIUM 100MG CAPSULE PO SCH ×2 (09:02→20:03)
[2021-12-12] MEDS: GABAPENTIN 300 MG CAP PO SCH ×2 (09:02→20:04)
[2021-12-12] MEDS: ASPIRIN 325 MG TAB PO SCH (09:03)
[2021-12-12] MEDS: METOPROLOL TART 12.5 MG PER 1/2 TAB PO SCH ×2 (09:03→20:04)
[2021-12-12] MEDS: FUROSEMIDE 10MG PER 1/2 TABLET PO SCH (09:03)
[2021-12-12] MEDS: SERTRALINE HCL 50 MG TAB PO SCH (09:03)
[2021-12-12] MEDS: amLODIPine 5 MG TAB PO SCH (09:03)
[2021-12-12 09:48] LABS: HEMATOCRIT 33.3 % (36.0-47.0); HEMOGLOBIN 10.9 g/dl (12.0-15.5); MEAN CORPUSCULAR HEMOGLOBIN 30.8 pg (27.0-33.0); MEAN CORPUSCULAR HGB CONC 32.7 g/dl (32.0-36.5); MEAN CORPUSCULAR VOLUME 94.1 fl (80.0-96.0); PLATELET COUNT, AUTOMATED 403 10^3/uL (150-450); RED BLOOD COUNT 3.54 10^6/uL (4.00-5.40); WHITE BLOOD COUNT 7.4 10^3/uL (4.0-10.0)
[2021-12-12 10:15] LABS: ATYPICAL LYMPH 4 % (0-5); BASOPHILS 1 % (0-1); EOSINOPHILS 7 % (0-3); LYMPHOCYTES 21 % (16-44); MONOCYTES 10 % (0-5); NEUTROPHILS 57 % (28-66)
[2021-12-12 10:18] LABS: STOMATOCYTES 1+
[2021-12-12 10:19] LABS: PLATELET ESTIMATE INCREASED (NORMAL)
[2021-12-12 10:25] LABS: ALT/SGPT 26 U/L (12-78); BILIRUBIN,TOTAL 0.4 MG/DL (0.2-1.0); BLOOD UREA NITROGEN 18 MG/DL (7-18); CALCIUM LEVEL 9.7 MG/DL (8.5-10.1); CARBON DIOXIDE LEVEL 24 MEQ/L (21-32); CHLORIDE LEVEL 105 MEQ/L (98-107); CREATININE FOR GFR 0.89 MG/DL (0.55-1.30); GLOMERULAR FILTRATION RATE > 60.0 (>51); GLUCOSE, FASTING 108 MG/DL (70-100); POTASSIUM SERUM 3.9 MEQ/L (3.5-5.1); SODIUM LEVEL 138 MEQ/L (136-145); TOTAL PROTEIN 8.1 GM/DL (6.4-8.2)
[2021-12-12] MEDS: NICOTINE 14 MG/24 HR TRANSDERMAL TD PRN (11:01)
[2021-12-12 17:26] LABS: HEMATOCRIT 32.6 % (36.0-47.0); HEMOGLOBIN 10.8 g/dl (12.0-15.5); MEAN CORPUSCULAR HEMOGLOBIN 31.2 pg (27.0-33.0); MEAN CORPUSCULAR HGB CONC 33.1 g/dl (32.0-36.5); MEAN CORPUSCULAR VOLUME 94.2 fl (80.0-96.0); PLATELET COUNT, AUTOMATED 392 10^3/uL (150-450); RED BLOOD COUNT 3.46 10^6/uL (4.00-5.40)
[2021-12-12 17:56] LABS: ALBUMIN 3.8 GM/DL (3.2-5.2); BILIRUBIN,TOTAL 0.4 MG/DL (0.2-1.0); CALCIUM LEVEL 9.4 MG/DL (8.5-10.1); CREATININE FOR GFR 1.05 MG/DL (0.55-1.30); GLOMERULAR FILTRATION RATE 57.5 (>51); POTASSIUM SERUM 3.9 MEQ/L (3.5-5.1); TOTAL PROTEIN 7.8 GM/DL (6.4-8.2)
[2021-12-12 18:18] VITALS: BP 115/63
[2021-12-12] MEDS: ATORVASTATIN 10 MG TAB PO SCH (20:03)
[2021-12-12] MEDS: OMEPRAZOLE 20MG CAP PO SCH (20:04)
[2021-12-12] MEDS: traZODone 25MG PER 1/2 TABLET PO PRN (20:04)
[2021-12-13 06:15] VITALS: BP 144/72
[2021-12-13] MEDS: SERTRALINE HCL 50 MG TAB PO SCH (08:56)
[2021-12-13] MEDS: ASPIRIN 325 MG TAB PO SCH (08:56)
[2021-12-13] MEDS: FUROSEMIDE 10MG PER 1/2 TABLET PO SCH (08:56)
[2021-12-13] MEDS: GABAPENTIN 300 MG CAP PO SCH (08:56)
[2021-12-13] MEDS: DOCUSATE SODIUM 100MG CAPSULE PO SCH ×2 (08:57→20:32)
[2021-12-13] MEDS: POTASSIUM CHLORIDE 10MEQ SR TABLET PO SCH ×2 (08:57→15:44)
[2021-12-13] MEDS: amLODIPine 5 MG TAB PO SCH (08:58)
[2021-12-13] MEDS: METOPROLOL TART 12.5 MG PER 1/2 TAB PO SCH ×2 (08:58→20:34)
[2021-12-13 18:00] VITALS: BP 146/65
[2021-12-13] MEDS: OMEPRAZOLE 20MG CAP PO SCH (20:33)
[2021-12-13] MEDS: ATORVASTATIN 10 MG TAB PO SCH (20:33)
[2021-12-14] MEDS: MAALOX 30 ML SUSP *UDC PO PRN (02:30)
[2021-12-14] MEDS: ACETAMINOPHEN TAB 650MG DOSE (2X325MG) PO PRN ×2 (02:34→15:22)
[2021-12-14 06:10] VITALS: BP 160/77
[2021-12-14] MEDS: ASPIRIN 325 MG TAB PO SCH (08:59)
[2021-12-14 09:00] VITALS: BP 130/82
[2021-12-14] MEDS: POTASSIUM CHLORIDE 10MEQ SR TABLET PO SCH ×2 (09:00→15:23)
[2021-12-14] MEDS: DOCUSATE SODIUM 100MG CAPSULE PO SCH (09:00)
[2021-12-14] MEDS: FUROSEMIDE 10MG PER 1/2 TABLET PO SCH (09:00)
[2021-12-14] MEDS: amLODIPine 5 MG TAB PO SCH (09:00)
[2021-12-14] MEDS: METOPROLOL TART 12.5 MG PER 1/2 TAB PO SCH (09:00)
[2021-12-14] MEDS ORDERED: SODIUM CHLORIDE NASAL 0.65% SPRAY BTL (OCEAN) PRN (11:45)
[2021-12-14] MEDS ORDERED: LORazepam 0.5 MG TAB PO SCH (16:00)
[2021-12-14] MEDS: OLANZapine ORAL DISINTEGRATING TAB 5MG PO PRN (16:23)
[2021-12-14] MEDS ORDERED: CETIRIZINE (ZyrTEC) 10 MG TAB PO SCH (17:00)
[2021-12-14] MEDS ORDERED: ALBUTEROL 90 MCG/ACT 8GM HFA INHALER INH PRN ×2 (17:15→17:35)
[2021-12-14] MEDS ORDERED: LORazepam 1 MG TAB PO STA (17:25)
[2021-12-14] MEDS ORDERED: risperiDONE 1 MG TAB PO ONE (17:25)
[2021-12-14 17:58] LABS: ABG BASE EXCESS -1.7 (-2.0-2.0); ABG HCO3 22.6 MEQ/L (22.0-26.0); ABG O2 SATURATION 98.1 % (95.0-99.0); ABG PARTIAL PRESSURE CO2 36.8 mmHg (35.0-45.0); ABG PARTIAL PRESSURE O2 110.7 mmHg (75.0-100.0); ABG STANDARD HCO3 23.1 MEQ/L (22.0-26.0); ABG TOTAL CO2 23.8 MEQ/L (22.0-29.0); ABG pH (ARTERIAL) 7.407 UNITS (7.350-7.450)
[2021-12-14] MEDS ORDERED: guaiFENesin ER 600 MG TAB PO SCH (18:05)
[2021-12-14 18:12] LABS: BASO # 0.1 10^3/uL (0.0-0.2); BASO % 1.8 % (0.0-1.0); EOS # 0.1 10^3/uL (0.0-0.5); EOS % 1.1 % (0.0-3.0); HEMATOCRIT 33.2 % (36.0-47.0); LYMPH # 2.8 10^3/uL (1.5-5.0); LYMPH % 34.8 % (24.0-44.0); MEAN CORPUSCULAR HEMOGLOBIN 31.1 pg (27.0-33.0); MEAN CORPUSCULAR HGB CONC 33.1 g/dl (32.0-36.5); MEAN CORPUSCULAR VOLUME 93.8 fl (80.0-96.0); MONO # 0.9 10^3/uL (0.0-0.8); MONO % 11.4 % (2.0-8.0); NEUTROPHILS % 50.5 % (36.0-66.0); PLATELET COUNT, AUTOMATED 406 10^3/uL (150-450); RED BLOOD COUNT 3.54 10^6/uL (4.00-5.40)
[2021-12-14 18:21] VITALS: BP 140/78
[2021-12-14 18:40] LABS: BLOOD UREA NITROGEN 24 MG/DL (7-18); CALCIUM LEVEL 9.6 MG/DL (8.5-10.1); CARBON DIOXIDE LEVEL 23 MEQ/L (21-32); CHLORIDE LEVEL 104 MEQ/L (98-107); CREATININE FOR GFR 1.01 MG/DL (0.55-1.30); GLOMERULAR FILTRATION RATE > 60.0 (>51); GLUCOSE, FASTING 118 MG/DL (70-100); POTASSIUM SERUM 3.9 MEQ/L (3.5-5.1); SODIUM LEVEL 135 MEQ/L (136-145)
[2021-12-14 19:35] VITALS: BP 168/92
[2021-12-14] MEDS ORDERED: LEVALBUTEROL 1.25 MG/0.5 ML CONCENTRATE NEB NEB ONE (19:35)
[2021-12-14] MEDS ORDERED: IPRATROPIUM 0.02% SOLN 0.5MG 2.5ML NEB NEB ONE (19:40)
[2021-12-14] MEDS ORDERED: methylPREDNISolone 125MG 2ML VIAL IV ONE (19:50)
[2021-12-14] MEDS ORDERED: OLAN5ZYD PO (20:10)
[2021-12-14] MEDS ORDERED: OMEP-173 PO (20:10)
[2021-12-14] MEDS ORDERED: NICO14PA TD (20:10)
[2021-12-14] MEDS ORDERED: ASPI-1 PO (20:10)
[2021-12-14] MEDS ORDERED: MUCI600T31 PO (20:10)
[2021-12-14] MEDS ORDERED: METO1TAB87 PO (20:10)
[2021-12-14] MEDS ORDERED: risperiDONE 1 MG TAB PO SCH (21:00)
[2021-12-14] MEDS ORDERED: LORazepam 1 MG TAB PO SCH (21:00)
[2021-12-14] MEDS ORDERED: FLUTICASONE PROP 0.05% NASAL SPRAY 16 GM (FLONASE) NARES SCH (21:00)
[2021-12-15] MEDS ORDERED: risperiDONE 0.5 MG TAB PO SCH (09:00)
== END 2021-12-14 20:11 | disposition other institution (70) | DRG 861 ==
LOC: M PSY 18:28
PROVIDERS: ADMIT Psychiatry & Neurology Psychiatry; ATTEND Internal Medicine
DX: R41.82 Altered mental status, unspecified (principal); F17.210 Nicotine dependence, cigarettes, uncomplicated; M54.9 Dorsalgia, unspecified; I10 Essential (primary) hypertension; J44.9 Chronic obstructive pulmonary disease, unspecified; I34.1 Nonrheumatic mitral (valve) prolapse; F32.A Depression, unspecified; R91.1 Solitary pulmonary nodule; E78.5 Hyperlipidemia, unspecified; Z88.0 Allergy status to penicillin; Z88.1 Allergy status to other antibiotic agents; Z88.8 Allergy status to other drugs, medicaments and biological substances; Z91.018 Allergy to other foods; Z86.16 Personal history of COVID-19; R06.02 Shortness of breath

== ENCOUNTER 2021-12-14 20:16 | Inpatient (IN) | payer OTHER ==
[~2021-12-14] VITALS: Ht 157.5 cm; Wt 48.0 kg
[2021-12-14] MEDS: IPRATROPIUM 0.5MG/ALBUTEROL 2.5MG INH SOL UD 3ML (DUONEB) NEB SCH (20:00)
[2021-12-14] MEDS: BUDESONIDE 0.5 MG/2 ML INHALATION SUSPENSION INH SCH (20:00)
[~2021-12-14 20:16] MED LIST changes: +ASPI-1 PO; +NICO14PA TD; +OLAN5ZYD PO; +OMEP-173 PO
[2021-12-14 20:51] VITALS: BP 99/55
[2021-12-14] MEDS ORDERED: LevoFLOXacin IV 500 MG in IV 1 EA IV SCH (21:00)
[2021-12-14] MEDS: FLUTICASONE PROP 0.05% NASAL SPRAY 16 GM (FLONASE) NARES SCH (21:00)
[2021-12-14] MEDS: methylPREDNISolone 125MG 2ML VIAL IV SCH (21:23)
[2021-12-14 22:14] LABS: HEMOGLOBIN 9.5 g/dl (12.0-15.5); MEAN CORPUSCULAR HGB CONC 32.8 g/dl (32.0-36.5); MEAN CORPUSCULAR VOLUME 94.8 fl (80.0-96.0); PLATELET COUNT, AUTOMATED 335 10^3/uL (150-450); RED BLOOD COUNT 3.06 10^6/uL (4.00-5.40); WHITE BLOOD COUNT 6.6 10^3/uL (4.0-10.0)
[2021-12-14 22:36] LABS: BLOOD UREA NITROGEN 26 MG/DL (7-18); CALCIUM LEVEL 8.9 MG/DL (8.5-10.1); CARBON DIOXIDE LEVEL 28 MEQ/L (21-32); CHLORIDE LEVEL 106 MEQ/L (98-107); CREATININE FOR GFR 0.84 MG/DL (0.55-1.30); GLOMERULAR FILTRATION RATE > 60.0 (>51); GLUCOSE, FASTING 102 MG/DL (70-100); MAGNESIUM LEVEL 2.2 MG/DL (1.8-2.4); POTASSIUM SERUM 3.8 MEQ/L (3.5-5.1); SODIUM LEVEL 139 MEQ/L (136-145)
[2021-12-14 22:50] LABS: ATYPICAL LYMPH 2 % (0-5); BASOPHILS 2 % (0-1); EOSINOPHILS 3 % (0-3); LYMPHOCYTES 20 % (16-44); MONOCYTES 2 % (0-5); NEUTROPHILS 71 % (28-66); PLATELET ESTIMATE NORMAL (NORMAL)
[2021-12-14 22:51] LABS: ANISOCYTOSIS 1+
[2021-12-14] MEDS ORDERED: SODIUM CHLORIDE 0.9% 1000ML IV ONE (22:55)
[2021-12-14 23:03] LABS: ABG BASE EXCESS -2.6 (-2.0-2.0); ABG HCO3 23.5 MEQ/L (22.0-26.0); ABG O2 SATURATION 97.2 % (95.0-99.0); ABG PARTIAL PRESSURE CO2 46.6 mmHg (35.0-45.0); ABG PARTIAL PRESSURE O2 101.8 mmHg (75.0-100.0); ABG STANDARD HCO3 22.3 MEQ/L (22.0-26.0); ABG pH (ARTERIAL) 7.321 UNITS (7.350-7.450)
[2021-12-14 23:37] VITALS: BP 145/69
[2021-12-15] MEDS: IPRATROPIUM 0.5MG/ALBUTEROL 2.5MG INH SOL UD 3ML (DUONEB) NEB SCH ×6 (01:24→19:17)
[2021-12-15] MEDS: ACETAMINOPHEN TAB 650MG DOSE (2X325MG) PO PRN ×5 (02:06→21:31)
[2021-12-15] MEDS ORDERED: ALBUTEROL SULFATE 2.5 MG/0.5 ML INH NEB SOLN INH PRN (02:30)
[2021-12-15] MEDS ORDERED: GLUCAGON INJ 1MG VIAL SC PRN (02:35)
[2021-12-15] MEDS ORDERED: DEXTROSE 50% 50 ML SYRINGE IV PRN (02:35)
[2021-12-15] MEDS ORDERED: GLUCOSE 4GM CHEW TABLET PO PRN (02:35)
[2021-12-15 04:00] VITALS: BP 141/74
[2021-12-15 04:55] LABS: VENOUS BASE EXCESS -1.1 (-2.0-2.0); VENOUS HCO3 23.9 MEQ/L (23.0-27.0); VENOUS O2 SATURATION 98.7 % (60.0-80.0); VENOUS PARTIAL PRESSURE CO2 40.6 mmHg (38.0-50.0); VENOUS PARTIAL PRESSURE O2 118.4 mmHg (30.0-50.0); VENOUS PH 7.387 UNITS (7.330-7.430); VENOUS STANDARD HCO3 23.6 MEQ/L; VENOUS TOTAL CO2 25.1 MEQ/L (24.0-28.0)
[2021-12-15 05:01] LABS: BASO % 0.5 % (0.0-1.0); EOS # 0.4 10^3/uL (0.0-0.5); EOS % 5.3 % (0.0-3.0); HEMATOCRIT 32.6 % (36.0-47.0); HEMOGLOBIN 10.4 g/dl (12.0-15.5); LYMPH # 1.4 10^3/uL (1.5-5.0); LYMPH % 18.5 % (24.0-44.0); MEAN CORPUSCULAR HGB CONC 31.9 g/dl (32.0-36.5); MONO # 0.2 10^3/uL (0.0-0.8); MONO % 3.3 % (2.0-8.0); NEUTROPHILS # 5.3 10^3/uL (1.5-8.5); NEUTROPHILS % 72.1 % (36.0-66.0); PLATELET COUNT, AUTOMATED 318 10^3/uL (150-450); RED BLOOD COUNT 3.36 10^6/uL (4.00-5.40); WHITE BLOOD COUNT 7.4 10^3/uL (4.0-10.0)
[2021-12-15] MEDS: methylPREDNISolone 125MG 2ML VIAL IV SCH ×3 (05:01→20:52)
[2021-12-15 05:25] LABS: BLOOD UREA NITROGEN 23 MG/DL (7-18); CALCIUM LEVEL 9.1 MG/DL (8.5-10.1); CARBON DIOXIDE LEVEL 25 MEQ/L (21-32); CHLORIDE LEVEL 105 MEQ/L (98-107); CREATININE FOR GFR 0.75 MG/DL (0.55-1.30); GLOMERULAR FILTRATION RATE > 60.0 (>51); GLUCOSE, FASTING 123 MG/DL (70-100); SODIUM LEVEL 136 MEQ/L (136-145)
[2021-12-15 06:18] LABS: BILIRUBIN, URINE MANUAL NEGATIVE (NEGATIVE); GLUCOSE, URINE (UA) MANUAL NEGATIVE (NEGATIVE); KETONE, URINE MANUAL 1+ mg/dL (NEGATIVE); UROBILINOGEN, URINE MANUAL NORMAL (NORMAL)
[2021-12-15 06:49] LABS: BACTERIA, URINE SMALL AMOUNT; HYALINE CAST, URINE 0-1 /lpf (0-1); RBC, URINE 0-1 /hpf (0-3); SQUAMOUS EPITHELIAL CELL URINE SMALL AMOUNT /hpf (SMALL AMT)
[2021-12-15] MEDS: HumaLOG INSULIN (NovoLOG) PER UNIT SC SCH ×4 (07:30→20:51)
[2021-12-15 07:49] VITALS: BP 135/63
[2021-12-15] MEDS: BUDESONIDE 0.5 MG/2 ML INHALATION SUSPENSION INH SCH ×2 (08:22→19:17)
[2021-12-15] MEDS: ENOXAPARIN 40MG/0.4ML SYRINGE (J1650 PER 10MG) SC SCH (08:28)
[2021-12-15] MEDS: FLUTICASONE PROP 0.05% NASAL SPRAY 16 GM (FLONASE) NARES SCH ×2 (08:28→20:51)
[2021-12-15 12:27] VITALS: BP 130/66
[2021-12-15 15:53] VITALS: BP 142/68
[2021-12-15] MEDS ORDERED: HOME MED LIST COMPLETE! XX SCH (17:55)
[2021-12-15 19:47] VITALS: BP 122/58
[2021-12-16] VITALS: BP 132/60
[2021-12-16 04:00] VITALS: BP_SYST 132; BP_SYST 137; BP_DIAS 60; BP_DIAS 64
[2021-12-16] MEDS: methylPREDNISolone 125MG 2ML VIAL IV SCH ×2 (04:03→18:08)
[2021-12-16] MEDS: ACETAMINOPHEN TAB 650MG DOSE (2X325MG) PO PRN ×5 (04:05→23:55)
[2021-12-16 05:50] LABS: BASO % 0.1 % (0.0-1.0); HEMATOCRIT 30.3 % (36.0-47.0); HEMOGLOBIN 9.7 g/dl (12.0-15.5); LYMPH # 1.2 10^3/uL (1.5-5.0); LYMPH % 10.4 % (24.0-44.0); MEAN CORPUSCULAR HEMOGLOBIN 30.7 pg (27.0-33.0); MEAN CORPUSCULAR VOLUME 95.9 fl (80.0-96.0); MONO # 0.6 10^3/uL (0.0-0.8); NEUTROPHILS # 9.7 10^3/uL (1.5-8.5); NEUTROPHILS % 84.1 % (36.0-66.0); PLATELET COUNT, AUTOMATED 339 10^3/uL (150-450); RED BLOOD COUNT 3.16 10^6/uL (4.00-5.40); WHITE BLOOD COUNT 11.5 10^3/uL (4.0-10.0)
[2021-12-16 05:58] LABS: BLOOD UREA NITROGEN 19 MG/DL (7-18); CALCIUM LEVEL 8.6 MG/DL (8.5-10.1); CARBON DIOXIDE LEVEL 28 MEQ/L (21-32); CHLORIDE LEVEL 107 MEQ/L (98-107); CREATININE FOR GFR 0.82 MG/DL (0.55-1.30); GLOMERULAR FILTRATION RATE > 60.0 (>51); GLUCOSE, FASTING 127 MG/DL (70-100); POTASSIUM SERUM 4.2 MEQ/L (3.5-5.1); SODIUM LEVEL 139 MEQ/L (136-145)
[2021-12-16] MEDS: HumaLOG INSULIN (NovoLOG) PER UNIT SC SCH ×4 (07:30→19:34)
[2021-12-16] MEDS: IPRATROPIUM 0.5MG/ALBUTEROL 2.5MG INH SOL UD 3ML (DUONEB) NEB SCH (07:37)
[2021-12-16] MEDS: BUDESONIDE 0.5 MG/2 ML INHALATION SUSPENSION INH SCH (07:37)
[2021-12-16 08:00] VITALS: BP 138/68
[2021-12-16] MEDS: ENOXAPARIN 40MG/0.4ML SYRINGE (J1650 PER 10MG) SC SCH (08:06)
[2021-12-16] MEDS: FLUTICASONE PROP 0.05% NASAL SPRAY 16 GM (FLONASE) NARES SCH ×2 (08:08→19:34)
[2021-12-16] MEDS: METOPROLOL TART 25 MG TABLET PO SCH ×2 (10:25→19:34)
[2021-12-16 12:00] VITALS: BP 130/63
[2021-12-16] MEDS: NICOTINE 7 MG/24 HR TRANSDERMAL TD SCH (13:21)
[2021-12-16] MEDS ORDERED: traMADol 50 MG TAB PO PRN (13:40)
[2021-12-16] MEDS: LIDOCAINE 5% (LIDODERM) PATCH TD SCH (15:08)
[2021-12-16 16:00] VITALS: BP 114/56
[2021-12-16 19:27] VITALS: BP 122/62
[2021-12-16] MEDS ORDERED: BUDESONIDE 0.5 MG/2 ML INHALATION SUSPENSION INH PRN (20:00)
[2021-12-16] MEDS ORDERED: **NOTE PATIENT COMMENT** MISC XX SCH (21:00)
[2021-12-17] MEDS: ACETAMINOPHEN TAB 650MG DOSE (2X325MG) PO PRN ×2 (04:51→09:04)
[2021-12-17] MEDS: methylPREDNISolone 125MG 2ML VIAL IV SCH (04:51)
[2021-12-17 04:53] VITALS: BP 144/68
[2021-12-17 05:40] LABS: BASO % 0.1 % (0.0-1.0); HEMATOCRIT 29.3 % (36.0-47.0); HEMOGLOBIN 9.5 g/dl (12.0-15.5); LYMPH # 2.3 10^3/uL (1.5-5.0); LYMPH % 21.1 % (24.0-44.0); MEAN CORPUSCULAR HEMOGLOBIN 30.8 pg (27.0-33.0); MEAN CORPUSCULAR HGB CONC 32.4 g/dl (32.0-36.5); MEAN CORPUSCULAR VOLUME 95.1 fl (80.0-96.0); MONO # 0.7 10^3/uL (0.0-0.8); MONO % 6.6 % (2.0-8.0); NEUTROPHILS # 7.9 10^3/uL (1.5-8.5); NEUTROPHILS % 71.7 % (36.0-66.0); PLATELET COUNT, AUTOMATED 318 10^3/uL (150-450); RED BLOOD COUNT 3.08 10^6/uL (4.00-5.40)
[2021-12-17 06:11] LABS: BLOOD UREA NITROGEN 17 MG/DL (7-18); CALCIUM LEVEL 8.4 MG/DL (8.5-10.1); CARBON DIOXIDE LEVEL 27 MEQ/L (21-32); CHLORIDE LEVEL 108 MEQ/L (98-107); CREATININE FOR GFR 0.69 MG/DL (0.55-1.30); GLOMERULAR FILTRATION RATE > 60.0 (>51); GLUCOSE, FASTING 106 MG/DL (70-100); POTASSIUM SERUM 3.7 MEQ/L (3.5-5.1); SODIUM LEVEL 139 MEQ/L (136-145)
[2021-12-17 07:55] VITALS: BP 142/66
[2021-12-17] MEDS: FLUTICASONE PROP 0.05% NASAL SPRAY 16 GM (FLONASE) NARES SCH (09:02)
[2021-12-17] MEDS: NICOTINE 7 MG/24 HR TRANSDERMAL TD SCH (09:02)
[2021-12-17] MEDS: LIDOCAINE 5% (LIDODERM) PATCH TD SCH (09:02)
[2021-12-17] MEDS: ENOXAPARIN 40MG/0.4ML SYRINGE (J1650 PER 10MG) SC SCH (09:03)
[2021-12-17] MEDS: HumaLOG INSULIN (NovoLOG) PER UNIT SC SCH (09:03)
[2021-12-17 09:08] VITALS: BP 142/66
[2021-12-17] MEDS: METOPROLOL TART 25 MG TABLET PO SCH (09:08)
[2021-12-17] MEDS ORDERED: NICO7PA TD (16:38)
[2021-12-17] MEDS ORDERED: TRAM50TA2 PO ×2 (16:38→16:40)
[2021-12-17] MEDS ORDERED: PRED10TA2 PO (16:38)
[2021-12-17] MEDS ORDERED: LIDO5TD TD (16:38)
[2021-12-17] MEDS ORDERED: DOCU100C16 PO (16:47)
== END 2021-12-17 17:53 | disposition home or self-care (01) | DRG 133 ==
LOC: M PCU 20:19
PROVIDERS: ADMIT Internal Medicine; ATTEND Internal Medicine
DX: J96.00 Acute respiratory failure, unspecified whether with hypoxia or hypercapnia (principal); G93.40 Encephalopathy, unspecified; R45.851 Suicidal ideations; J44.1 Chronic obstructive pulmonary disease with (acute) exacerbation; I10 Essential (primary) hypertension; E78.5 Hyperlipidemia, unspecified; M54.50 Low back pain, unspecified; Z79.82 Long term (current) use of aspirin; Z79.899 Other long term (current) drug therapy; F17.200 Nicotine dependence, unspecified, uncomplicated; Z88.0 Allergy status to penicillin; Z88.1 Allergy status to other antibiotic agents; Z91.018 Allergy to other foods; F32.A Depression, unspecified; R91.8 Other nonspecific abnormal finding of lung field; K58.9 Irritable bowel syndrome, unspecified; Z90.49 Acquired absence of other specified parts of digestive tract; Z90.79 Acquired absence of other genital organ(s); D64.9 Anemia, unspecified; F41.9 Anxiety disorder, unspecified

== ENCOUNTER → 2022-02-27 | Outpatient (CLI) | payer OTHER ==
[~2022-02-27] MED LIST changes: +LIDO5TD TD; +NICO7PA TD; +PRED10TA2 PO; +TRAM50TA2 PO
== END ==
LOC: M RAD 15:11
PROVIDERS: ATTEND Physician Assistant
DX: R63.4 Abnormal weight loss (principal)

== ENCOUNTER → 2022-05-13 | Outpatient (CLI) | payer OTHER ==
[~2022-05-13] MED LIST changes: +ISOVUE-370 76% 100ML VIAL As Ordered ONE
== END ==
LOC: M RAD 13:11
PROVIDERS: ATTEND Internal Medicine Gastroenterology
DX: R93.3 Abnormal findings on diagnostic imaging of other parts of digestive tract (principal); R63.4 Abnormal weight loss; J43.9 Emphysema, unspecified; R91.8 Other nonspecific abnormal finding of lung field; I70.0 Atherosclerosis of aorta; I25.10 Atherosclerotic heart disease of native coronary artery without angina pectoris
CPT/HCPCS: 71260; Q9967

== ENCOUNTER → 2022-07-23 | Outpatient (REF) | payer OTHER ==
[~2022-07-23] MED LIST changes: -ISOVUE-370 76% 100ML VIAL As Ordered ONE
== END ==
LOC: M SFHCCAPE 16:35
PROVIDERS: ATTEND Physician Assistant
DX: J18.9 Pneumonia, unspecified organism (principal)

== ENCOUNTER → 2022-07-24 | Outpatient (CLI) | payer OTHER | LOC: M LAB 16:27 | PROVIDERS: ATTEND Physician Assistant | DX: J18.9 Pneumonia, unspecified organism (principal); J44.0 Chronic obstructive pulmonary disease with (acute) lower respiratory infection ==

== ENCOUNTER → 2022-08-21 | Outpatient (REF) | payer OTHER ==
[2022-08-21 18:29] LABS: BASO # 0.1 10^3/uL (0.0-0.2); BASO % 1.4 % (0.0-1.0); EOS # 0.4 10^3/uL (0.0-0.5); EOS % 4.4 % (0.0-3.0); HEMATOCRIT 37.9 % (36.0-47.0); HEMOGLOBIN 12.1 g/dl (12.0-15.5); LYMPH # 3.2 10^3/uL (1.5-5.0); LYMPH % 40.5 % (24.0-44.0); MEAN CORPUSCULAR HEMOGLOBIN 30.9 pg (27.0-33.0); MEAN CORPUSCULAR HGB CONC 31.9 g/dl (32.0-36.5); MEAN CORPUSCULAR VOLUME 96.9 fl (80.0-96.0); MONO # 0.7 10^3/uL (0.0-0.8); MONO % 8.2 % (2.0-8.0); NEUTROPHILS # 3.6 10^3/uL (1.5-8.5); NEUTROPHILS % 45.1 % (36.0-66.0); PLATELET COUNT, AUTOMATED 405 10^3/uL (150-450); RED BLOOD COUNT 3.91 10^6/uL (4.00-5.40); WHITE BLOOD COUNT 7.9 10^3/uL (4.0-10.0)
[2022-08-21 20:39] LABS: ALBUMIN 3.6 GM/DL (3.2-5.2); ALT/SGPT 19 U/L (12-78); BILIRUBIN,TOTAL 0.2 MG/DL (0.2-1.0); BLOOD UREA NITROGEN 14 MG/DL (7-18); CALCIUM LEVEL 8.9 MG/DL (8.5-10.1); CARBON DIOXIDE LEVEL 23 MEQ/L (21-32); CHLORIDE LEVEL 102 MEQ/L (98-107); CHOLESTEROL LEVEL 211 MG/DL (<200); CHOLESTEROL RISK RATIO 3.296 (<5); CREATININE FOR GFR 0.88 MG/DL (0.55-1.30); GLOMERULAR FILTRATION RATE > 60.0 (>51); GLUCOSE, FASTING 73 MG/DL (70-100); HDL CHOLESTEROL 64 MG/DL (>40); LDL CHOLESTEROL 101 MG/DL (<100); NON-HDL-C 147 MG/DL; SODIUM LEVEL 132 MEQ/L (136-145); TRIGLYCERIDES LEVEL 232 MG/DL (<150)
[2022-08-21 21:02] LABS: TOTAL 25(OH) VITAMIN D 78.5 NG/ML (30.0-100.0)
== END ==
LOC: M SFHCCAPE 11:32
PROVIDERS: ATTEND Physician Assistant
DX: Z00.00 Encounter for general adult medical examination without abnormal findings (principal)

== ENCOUNTER → 2022-12-04 | Outpatient (REF) | payer OTHER ==
[2022-12-04 18:33] LABS: ALBUMIN 3.3 G/DL (3.2-5.2); ALKALINE PHOSPHATASE 83 U/L (46-116); ALT/SGPT 13 U/L (7.0-40); AST/SGOT 18 U/L (<34); BILIRUBIN,TOTAL 0.2 MG/DL (0.3-1.2); BLOOD UREA NITROGEN 14 MG/DL (9-23); CALCIUM LEVEL 8.9 MG/DL (8.5-10.1); CARBON DIOXIDE LEVEL 26 MMOL/L (20-31); CHLORIDE LEVEL 100 MMOL/L (98-107); CHOLESTEROL LEVEL 170 MG/DL (<200); CHOLESTEROL RISK RATIO 2.69 (<5); CREATININE FOR GFR 0.76 MG/DL (0.55-1.30); GLOMERULAR FILTRATION RATE > 60.0 (>51); GLUCOSE, FASTING 89 MG/DL (60-100); HDL CHOLESTEROL 63.1 MG/DL (>40); NON-HDL-C 107 MG/DL; POTASSIUM SERUM 4.6 MMOL/L (3.5-5.1); SODIUM LEVEL 131 MMOL/L (136-145)
[2022-12-04 22:26] LABS: LDL CHOLESTEROL 70.7 MG/DL (<100); TOTAL PROTEIN 6.4 G/DL (5.7-8.2); TRIGLYCERIDES LEVEL 181 MG/DL (<150)
== END ==
LOC: M SFHCCAPE 10:47
PROVIDERS: ATTEND Physician Assistant
DX: I05.9 Rheumatic mitral valve disease, unspecified (principal)

== ENCOUNTER → 2023-01-06 | Outpatient (CLI) | payer OTHER ==
[~2023-01-06] MED LIST changes: +ASPI81TA26 PO; +MELA10TA14 PO; +ONDA-83 PO; +PREG150C PO; +ROSU10TA6 PO
== END ==
LOC: M LABSMTC 11:14
PROVIDERS: ATTEND Anesthesiology
DX: Z01.812 Encounter for preprocedural laboratory examination (principal); Z20.822 Contact with and (suspected) exposure to COVID-19

== ENCOUNTER 2023-01-08 07:00 | Day surgery (SDC) | payer OTHER ==
[~2023-01-08] VITALS: Ht 157.5 cm; Wt 60.8 kg
[~2023-01-08 07:00] MED LIST changes: +NS 1,000 ML IV ONE
[2023-01-08 09:18] VITALS: BP 144/78
[2023-01-08] MEDS ORDERED: propofoL 200 MG/20 ML VIAL As Ordered ONE (09:53)
== END 2023-01-08 09:29 | disposition home or self-care (01) ==
LOC: M OPP 07:00
PROVIDERS: ATTEND Surgery
DX: Z12.11 Encounter for screening for malignant neoplasm of colon (principal); Z86.010 Personal history of colon polyps; K62.89 Other specified diseases of anus and rectum; K64.4 Residual hemorrhoidal skin tags; J44.9 Chronic obstructive pulmonary disease, unspecified; I10 Essential (primary) hypertension; E78.00 Pure hypercholesterolemia, unspecified; F32.9 Major depressive disorder, single episode, unspecified; F41.9 Anxiety disorder, unspecified; F17.200 Nicotine dependence, unspecified, uncomplicated; Z79.02 Long term (current) use of antithrombotics/antiplatelets; Z79.51 Long term (current) use of inhaled steroids; Z79.82 Long term (current) use of aspirin; Z79.83 Long term (current) use of bisphosphonates; Z79.899 Other long term (current) drug therapy

== ENCOUNTER → 2023-05-05 | Outpatient (CLI) | payer OTHER ==
[~2023-05-05] MED LIST changes: -COZA50TA PO; +LOSA-528 PO; -LOSA100T45 PO; +LOSA100T46 PO; -NS 1,000 ML IV ONE; +POTA-298 PO; -POTA1TAB14 PO
[2023-05-05 16:07] LABS: BLOOD UREA NITROGEN 13 MG/DL (9-23); CREATININE FOR GFR 0.98 MG/DL (0.55-1.30); GLOMERULAR FILTRATION RATE > 60.0 (>51)
== END ==
LOC: M PLALAB 13:43
PROVIDERS: ATTEND Pain Medicine Interventional Pain Medicine
DX: M96.1 Postlaminectomy syndrome, not elsewhere classified (principal)

== ENCOUNTER → 2023-05-20 | Outpatient (CLI) | payer OTHER | LOC: M RAD 14:58 | PROVIDERS: ATTEND Pain Medicine Interventional Pain Medicine | DX: M54.16 Radiculopathy, lumbar region (principal) ==

== ENCOUNTER → 2023-07-01 | Outpatient (REF) | payer OTHER ==
[~2023-07-01] MED LIST changes: +CELE0.09 PO; -CELE1CAP9 PO; -GABA-283 PO; +GABA-284 PO; -PREG150C PO; +PREG150C2 PO
== END ==
LOC: M SFHCCAPE 17:07
PROVIDERS: ATTEND Physician Assistant Medical
DX: L03.113 Cellulitis of right upper limb (principal)

== ENCOUNTER → 2023-07-01 | Outpatient (CLI) | payer OTHER | LOC: M RAD 17:36 | PROVIDERS: ATTEND Physician Assistant | DX: Z12.2 Encounter for screening for malignant neoplasm of respiratory organs (principal); F17.210 Nicotine dependence, cigarettes, uncomplicated; R91.8 Other nonspecific abnormal finding of lung field ==

== ENCOUNTER → 2023-09-03 | Outpatient (REF) | payer OTHER ==
[2023-09-03 19:01] LABS: BLOOD UREA NITROGEN 19 MG/DL (9-23); CREATININE FOR GFR 0.85 MG/DL (0.55-1.30); GLOMERULAR FILTRATION RATE > 60.0 (>51)
== END ==
LOC: M LABDRWCV 17:10
PROVIDERS: ATTEND Orthopaedic Surgery Orthopaedic Surgery of the Spine
DX: M54.50 Low back pain, unspecified (principal)

== ENCOUNTER → 2023-12-02 | Outpatient (REF) | payer OTHER ==
[2023-12-02 17:47] LABS: HEMATOCRIT 43.6 % (36.0-47.0); HEMOGLOBIN 14.9 g/dl (12.0-15.5); MEAN CORPUSCULAR HEMOGLOBIN 31.6 pg (27.0-33.0); MEAN CORPUSCULAR HGB CONC 34.2 g/dl (32.0-36.5); MEAN CORPUSCULAR VOLUME 92.6 fl (80.0-96.0); PLATELET COUNT, AUTOMATED 326 10^3/uL (150-450); RED BLOOD COUNT 4.71 10^6/uL (4.00-5.40)
[2023-12-02 18:06] LABS: INR 0.98; PROTHROMBIN TIME 12.7 SECONDS (12.5-14.5)
[2023-12-02 18:07] LABS: PARTIAL THROMBOPLASTIN TIME 28.5 SECONDS (24.8-34.2)
== END ==
LOC: M LABDRWCV 17:31
PROVIDERS: ATTEND Radiology Diagnostic Radiology
DX: R10.13 Epigastric pain (principal)

== ENCOUNTER → 2023-12-03 | Outpatient (CLI) | payer OTHER ==
[2023-12-03 15:00] VITALS: TEMP 97.1
[2023-12-03 17:07] VITALS: BP 132/65; O2SAT 95
== END ==
LOC: M IRPRO 14:18
PROVIDERS: ATTEND Orthopaedic Surgery Orthopaedic Surgery of the Spine
DX: M47.896 Other spondylosis, lumbar region (principal); M47.897 Other spondylosis, lumbosacral region; M48.07 Spinal stenosis, lumbosacral region; M51.24 Other intervertebral disc displacement, thoracic region

== ENCOUNTER → 2023-12-23 | Outpatient (REF) | payer OTHER | LOC: M SFHCCLAY 09:35 | PROVIDERS: ATTEND Family Medicine | DX: Z01.818 Encounter for other preprocedural examination (principal); M51.17 Intervertebral disc disorders with radiculopathy, lumbosacral region; I10 Essential (primary) hypertension ==

== ENCOUNTER → 2023-12-24 | Outpatient (REF) | payer OTHER ==
[2023-12-24 17:27] LABS: BASO # 0.1 10^3/uL (0.0-0.2); BASO % 0.7 % (0.0-1.0); EOS # 0.2 10^3/uL (0.0-0.5); HEMATOCRIT 46.2 % (36.0-47.0); HEMOGLOBIN 15.2 g/dl (12.0-15.5); LYMPH # 3.7 10^3/uL (1.5-5.0); LYMPH % 48.9 % (24.0-44.0); MEAN CORPUSCULAR HEMOGLOBIN 30.8 pg (27.0-33.0); MEAN CORPUSCULAR HGB CONC 32.9 g/dl (32.0-36.5); MEAN CORPUSCULAR VOLUME 93.5 fl (80.0-96.0); MONO # 0.6 10^3/uL (0.0-0.8); NEUTROPHILS % 40.1 % (36.0-66.0); PLATELET COUNT, AUTOMATED 348 10^3/uL (150-450); RED BLOOD COUNT 4.94 10^6/uL (4.00-5.40); WHITE BLOOD COUNT 7.5 10^3/uL (4.0-10.0)
[2023-12-24 17:44] LABS: INR 0.99; PARTIAL THROMBOPLASTIN TIME 30.4 SECONDS (24.8-34.2); PROTHROMBIN TIME 12.8 SECONDS (12.5-14.5)
[2023-12-24 17:53] LABS: ALBUMIN 4.2 G/DL (3.2-5.2); ALKALINE PHOSPHATASE 57 U/L (46-116); ALT/SGPT < 9 U/L (7.0-40); AST/SGOT < 8 U/L (<34); BILIRUBIN,TOTAL 0.2 MG/DL (0.3-1.2); BLOOD UREA NITROGEN 9 MG/DL (9-23); CALCIUM LEVEL 9.2 MG/DL (8.5-10.1); CARBON DIOXIDE LEVEL 29 MMOL/L (20-31); CHLORIDE LEVEL 102 MMOL/L (98-107); CREATININE FOR GFR 0.77 MG/DL (0.55-1.30); GLOMERULAR FILTRATION RATE > 60.0 (>51); GLUCOSE, FASTING 101 MG/DL (60-100); POTASSIUM SERUM 3.6 MMOL/L (3.5-5.1); SODIUM LEVEL 136 MMOL/L (136-145)
== END ==
LOC: M SFHCCLAY 14:36
PROVIDERS: ATTEND Family Medicine
DX: Z01.818 Encounter for other preprocedural examination (principal); M51.17 Intervertebral disc disorders with radiculopathy, lumbosacral region; I10 Essential (primary) hypertension

== ENCOUNTER → 2023-12-25 | Outpatient (REF) | payer OTHER | LOC: M SFHCCLAY 11:44 | PROVIDERS: ATTEND Family Medicine | DX: M51.17 Intervertebral disc disorders with radiculopathy, lumbosacral region (principal); Z01.818 Encounter for other preprocedural examination; I10 Essential (primary) hypertension ==

== ENCOUNTER → 2024-08-25 | Outpatient (CLI) | payer OTHER ==
[~2024-08-25] MED LIST changes: +GABA-1172 PO; +GABA-1490 PO; -GABA-282 PO; -GABA600T4 PO; -ROSU10TA6 PO; +ROSU10TA61 PO
== END ==
LOC: M RAD 12:45
PROVIDERS: ATTEND Physician Assistant Medical
DX: Z12.2 Encounter for screening for malignant neoplasm of respiratory organs (principal); F17.210 Nicotine dependence, cigarettes, uncomplicated; R91.8 Other nonspecific abnormal finding of lung field; I70.0 Atherosclerosis of aorta; I25.10 Atherosclerotic heart disease of native coronary artery without angina pectoris

== ENCOUNTER → 2025-06-23 | Outpatient (REF) | payer OTHER ==
[~2025-06-23] MED LIST changes: -AMBI5TAB PO; +ZOLP-532 PO
[2025-06-23 18:30] LABS: BASO # 0.1 10^3/uL (0.0-0.2); BASO % 1.2 % (0.0-1.0); EOS # 0.1 10^3/uL (0.0-0.5); EOS % 1.6 % (0.0-3.0); LYMPH # 2.2 10^3/uL (1.5-5.0); LYMPH % 38.5 % (24.0-44.0); MONO # 0.4 10^3/uL (0.0-0.8); MONO % 6.2 % (2.0-8.0); NEUTROPHILS # 2.9 10^3/uL (1.5-8.5); NEUTROPHILS % 52.5 % (36.0-66.0); PLATELET COUNT, AUTOMATED 319 10^3/uL (150-450)
[2025-06-23 18:39] LABS: ALT/SGPT 17.0 U/L (7.0-40); AST/SGOT 27.0 U/L (<34); CALCIUM LEVEL 9.6 MG/DL (8.3-10.6); CARBON DIOXIDE LEVEL 26.0 MMOL/L (20-31); CHLORIDE LEVEL 103.0 MMOL/L (98-107); CHOLESTEROL LEVEL 191.0 MG/DL (<200); CHOLESTEROL RISK RATIO 2.39 (<5); CREATININE FOR GFR 0.86 MG/DL (0.55-1.30); GLOMERULAR FILTRATION RATE 76.8 (>45); LDL CHOLESTEROL 88.8 MG/DL (<100); NON-HDL-C 111.4 MG/DL; POTASSIUM SERUM 4.2 MMOL/L (3.5-5.1); SODIUM LEVEL 137.0 MMOL/L (136-145); TRIGLYCERIDES LEVEL 113.0 MG/DL (<150)
[2025-06-23 18:41] LABS: FREE T4 1.15 NG/DL (0.89-1.76); TOTAL 25(OH) VITAMIN D 95.7 NG/ML (20.0-100.0)
== END ==
LOC: M SFHCCAPE 11:17
PROVIDERS: ATTEND Physician Assistant Medical
DX: J44.9 Chronic obstructive pulmonary disease, unspecified (principal); I70.0 Atherosclerosis of aorta; K21.9 Gastro-esophageal reflux disease without esophagitis; I10 Essential (primary) hypertension; E87.6 Hypokalemia; E78.2 Mixed hyperlipidemia; M81.0 Age-related osteoporosis without current pathological fracture